=== PATIENT | female | born 1940 | race Caucasian/White ===

== ENCOUNTER 2022-10-20 09:10 | Inpatient (IN) | payer MEDICARE, SELFPAY ==
[2022-10-20] VITALS (30 sets, daily range): BP systolic 144–170; BP diastolic 65–99; PULSE 66–101; RESP 13–21; TEMP 36.4–36.8; O2SAT 88–100; BMI 26.6; BMI 27.1
--- NOTE | 2022-10-20 09:23 | ECG_ITS ---
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
--- NOTE | 2022-10-20 09:23 | XR_ITS ---
The [address] [address] Patient Name: FANTASMA LEWIS MRN: [id number] date: 1940 Sex: F Assigned Patient Location: ER Current Patient Location: ED.MAIN Accession/Order Number: [id number] Exam Date: 10/20/2022 09:46 Report Date: 10/20/2022 09:59 At the request of: CRUZ CRASON Procedure: XR chest 1V EXAM: XR chest 1V HISTORY: . dizzy, recent Covid . COMPARISON: None. TECHNIQUE: Single view of the chest FINDINGS: Heart and vascularity are unremarkable. Lungs are free of focal infiltrates. EKG leads overlie the chest. XR/XR chest 1V IMPRESSION: No acute heart or lung disease identified. Electronically authenticated by: AUNDREA LEDESMA Date: 10/20/2022 09:59
--- NOTE | 2022-10-20 09:25 | ED_ITS ---
HPI - General Adult General Chief complaint: Weakness Stated complaint: DIZZINESS Time Seen by Provider: 10/20/22 09:19 Source: patient Mode of arrival: ambulance Limitations: no limitations History of Present Illness HPI narrative: 10-year-old female presents for dizziness and nausea. She was diagnosed with Covid two weeks ago and was prescribed an antiviral that she doesn't know the name of. She didn't take it correctly. She took it correctly 1st day but then the 2nd and 3rd days she seems to take in two days doses on each of those days. She states that she then stopped taking it. It wasn't intentional. She's been eating but hasn't been drinking much liquid. She's been feeling this way for a few weeks and it seems to be getting worse. No fever or pain. Related Data Home Medications Medication Instructions Recorded Confirmed anastrozole 1 mg tablet 1 mg PO Q24H 10/20/22 10/20/22 duloxetine 60 mg capsule,delayed 60 mg PO Q24H 10/20/22 10/20/22 release levothyroxine 88 mcg tablet 88 mcg PO Q24H 10/20/22 10/20/22 omeprazole 40 mg capsule,delayed 40 mg PO Q24H 10/20/22 10/20/22 release verapamil 240 mg 24 hr 240 mg PO Q24H 10/20/22 10/20/22 capsule,extended release Previous Rx's Medication Instructions Recorded meclizine 25 mg chewable tablet 25 mg PO QID PRN dizziness #20 tabs 10/20/22 (Antivert) ondansetron 4 mg disintegrating 4 mg PO Q6H PRN nausea and 10/20/22 tablet vomiting #20 tabs Allergies Allergy/AdvReac Type Severity Reaction Status Date / Time No Known Drug Allergies Allergy Verified 10/20/22 09:12 Review of Systems ROS Narrative A ten point review of systems is negative except as noted above. Exam Narrative Exam Narrative: Nurses note and vital signs reviewed and patient is not hypoxic. General: The patient appears well and in no apparent distress. Patient is resting comfortably on cart. Skin: Warm, dry, no pallor noted. There is no rash noted. Head: Normocephalic, atraumatic Eye: Normal conjunctiva, no drainage, EOMI. PERRL Ears, Nose, Mouth, and Throat: oral mucosa is not well-hydrated Cardiovascular: Regular Rate and Rhythm Respiratory: Patient is in no distress, no accessory muscle use, lungs are clear to auscultation, no wheezing, rales or rhonchi Back: non-tender GI: no tenderness to palpation, no masses appreciated. No rebound, guarding, or rigidity noted. Musculoskeletal: The patient has no evidence of calf tenderness, no pitting edema, symmetrical pulses noted bilaterally Neurological: A&O, normal speech Psychiatric: Cooperative Constitutional Vital Signs, click to edit/add: Last Vital Signs Temp 97.5 F L 10/20/22 09:12 Pulse 75 10/20/22 11:10 Resp 19 10/20/22 11:10 BP 154/71 H 10/20/22 11:15 Pulse Ox 98 10/20/22 11:10 O2 Del Method Nasal Cannula 10/20/22 09:32 O2 Flow Rate 2 10/20/22 09:32 Course Vital Signs Vital signs: Vital Signs Temperature 97.5 F L 10/20/22 09:12 Pulse Rate 71 10/20/22 09:12 Respiratory Rate 16 10/20/22 09:12 Blood Pressure 170/99 H 10/20/22 09:12 Pulse Oximetry 96 10/20/22 09:12 Oxygen Delivery Method Room Air 10/20/22 09:12 Temperature 97.5 F L 10/20/22 09:12 Pulse Rate 75 10/20/22 11:10 Respiratory Rate 19 10/20/22 11:10 Blood Pressure 154/71 H 10/20/22 11:15 Pulse Oximetry 98 10/20/22 11:10 Oxygen Delivery Method Nasal Cannula 10/20/22 09:32 Oxygen Delivery Flow Rate 2 10/20/22 09:32 Medical Decision Making MDM Narrative Medical decision making narrative: The patient's workup including blood work, urinalysis, EKG, and chest x-ray is negative. She was given IV fluids as well as Zofran and Antivert and she is able to be discharged home. Treatment diagnosis and follow-up were discussed with the patient and her family. Differential Diagnosis Differential Diagnosis: dehydration, anemia, electrolyte disturbance, d ysrhythmia Lab Data Lab results reviewed: Yes I reviewed the patient's lab results Labs: Lab Results 10/20/22 10/20/22 Range/Units 09:40 10:35 WBC 6.0 (4.0-11.0) 10^3/uL RBC 4.06 L (4.20-5.40) 10^6/uL Hgb 12.8 (12.0-16.0) g/dL Hct 39.3 (36.0-48.0) % MCV 96.8 (81.0-99.0) fL MCH 31.5 (26.7-34.0) pg MCHC 32.6 (29.9-35.2) g/dL RDW 12.6 (11.0-15.0) % Plt Count 277 (150-450) 10^3/uL MPV 9.6 (9.5-13.5) fL Neut % (Auto) 69.7 (43.0-75.0) % Lymph % (Auto) 17.1 L (20.5-60.0) % [place] % (Auto) 8.2 (1.7-12.0) % Eos % (Auto) 4.4 (0.9-7.0) % Baso % (Auto) 0.3 (0.2-2.0) % Neut # (Auto) 4.2 (1.4-6.5) 10^3/uL Lymph # (Auto) 1.0 L (1.2-3.8) 10^3/uL [place] # (Auto) 0.5 (0.3-0.8) 10^3/uL Eos # (Auto) 0.3 (0.0-0.7) 10^3/uL Baso # (Auto) 0.0 (0.0-0.1) 10^3/uL Abs Immat Gran (auto) 0.02 (0.00-0.03) 10^3/uL Imm/Tot Granulo (auto) 0.3 (0.0-0.5) % Sodium 143 (136-145) mmol/L Potassium 3.6 (3.5-5.1) mmol/L Chloride 105 (98-107) mmol/L Carbon Dioxide 35.7 H (21.0-32.0) mmol/L Anion Gap 5.9 BUN 17.0 (7.0-18.0) mg/dL Creatinine 0.73 (0.55-1.02) mg/dL Est GFR ( Amer) >60 (>=60) Est GFR (Non-Af Amer) >60 (>=60) BUN/Creatinine Ratio 23.3 Glucose 125 H (74-106) mg/dL Calcium 8.7 (8.5-10.1) mg/dL Urine Color Lt. yellow (YELLOW) Urine Clarity Clear (CLEAR) Urine pH 7.5 (5.0-9.0) Ur Specific [place] 1.015 (1.005-1.025) Urine Protein Negative (NEG/TRACE) mg/dL Urine Glucose (UA) Negative (NEGATIVE) mg/dL Urine Ketones Negative (NEGATIVE) mg/dL Urine Occult Blood Negative (NEGATIVE) Urine Nitrite Negative (NEGATIVE) Urine Bilirubin Negative (NEGATIVE) Urine Urobilinogen 0.2 (0.2-1.0) EU/dL Ur Leukocyte Esterase Small A (NEGATIVE) Urine RBC None seen (0-2) #/HPF Urine WBC 2-5 A (NONE SEEN) #/HPF Ur Squamous Epith Cells Few A (NONE/RARE) #/LPF Urine Bacteria Trace A (NONE SEEN) #/HPF Urine Mucus None seen (NONE SEEN) Imaging Data Chest x-ray: Radiologist's impression: Procedure: XR chest 1V EXAM: XR chest 1V HISTORY: . dizzy, recent Covid . COMPARISON: None. TECHNIQUE: Single view of the chest FINDINGS: Heart and vascularity are unremarkable. Lungs are free of focal infiltrates. EKG leads overlie the chest. IMPRESSION: No acute heart or lung disease identified. ECG Data Attestation: I personally reviewed and interpreted this ECG as follows: (EKG on my interpretation shows sinus rhythm without acute change) Discharge Plan Discharge Chief Complaint: Weakness Clinical Impression: Dizziness Patient Disposition: Home, Self-Care Time of Disposition Decision: 11:45 Condition: Good Mode of Transportation: Private Vehicle Prescriptions / Home Meds: New ondansetron 4 mg tablet,disintegrating 4 mg PO Q6H PRN (Reason: nausea and vomiting) Qty: 20 0RF meclizine [Antivert] 25 mg tablet,chewable 25 mg PO QID PRN (Reason: dizziness) Qty: 20 0RF No Action duloxetine 60 mg capsule,delayed release(DR/EC) 60 mg PO Q24H anastrozole 1 mg tablet 1 mg PO Q24H levothyroxine 88 mcg tablet 88 mcg PO Q24H omeprazole 40 mg capsule,delayed release(DR/EC) 40 mg PO Q24H verapamil 240 mg capsule,ext rel. pellets 24 hr 240 mg PO Q24H Instructions: Dizziness (ED) Stand Alone Forms: Portal Instructions Referrals: CINTIA LUBIN [Primary Care Provider] - 1 week
[2022-10-20] MEDS: 0.9 % SODIUM CHLORIDE 1,000 ML 1000 ML IV (09:38)
[2022-10-20 09:47] LABS: Basophils Percent Auto 0.3 % (0.2-2.0); Eosinophils Absolute Auto 0.3 10^3/uL (0.0-0.7); Eosinophils Percent Auto 4.4 % (0.9-7.0); Hematocrit 39.3 % (36.0-48.0); Hemoglobin 12.8 g/dL (12.0-16.0); Immature Granulocytes Abs Auto 0.02 10^3/uL (0.00-0.03); Immature Granulocytes Pct Auto 0.3 % (0.0-0.5); Lymphocytes Percent Auto 17.1 % (20.5-60.0); Mean Corpuscular HGB Conc 32.6 g/dL (29.9-35.2); Mean Corpuscular Hemoglobin 31.5 pg (26.7-34.0); Mean Corpuscular Volume 96.8 fL (81.0-99.0); Mean Platelet Volume 9.6 fL (9.5-13.5); Monocytes Absolute Auto 0.5 10^3/uL (0.3-0.8); Monocytes Percent Auto 8.2 % (1.7-12.0); Neutrophils Absolute Auto 4.2 10^3/uL (1.4-6.5); Neutrophils Percent Auto 69.7 % (43.0-75.0); Platelet Count 277 10^3/uL (150-450); Red Blood Count 4.06 10^6/uL (4.20-5.40); Red Cell Distribution Width 12.6 % (11.0-15.0)
[2022-10-20 09:52] LABS: Anion Gap 5.9; BUN Creatinine Ratio 23.3; Calcium 8.7 mg/dL (8.5-10.1); Carbon Dioxide 35.7 mmol/L (21.0-32.0); Chloride 105 mmol/L (98-107); Estimated GFR (African America >60 (>=60); Estimated GFR (Non-African Ame >60 (>=60); Glucose 125 mg/dL (74-106); Potassium 3.6 mmol/L (3.5-5.1); Sodium 143 mmol/L (136-145)
[2022-10-20 10:46] LABS: Bilirubin Urine NEGATIVE (NEGATIVE); Blood Urine NEGATIVE (NEGATIVE); Clarity Urine CLEAR (CLEAR); Color Urine LT. YELLOW (YELLOW); Glucose Urine UA NEGATIVE (NEGATIVE); Ketones Urine NEGATIVE (NEGATIVE); Leukocyte Esterase Urine SMALL (NEGATIVE); Nitrite Urine NEGATIVE (NEGATIVE); Protein Urine NEGATIVE (NEG/TRACE); Specific Gravity Urine 1.015 (1.005-1.025); Urobilinogen Urine 0.2 EU/dL (0.2-1.0); pH Urine 7.5 (5.0-9.0)
[2022-10-20 11:04] LABS: RBC Urine NONE SEEN #/HPF (0-2)
[2022-10-20 11:05] LABS: Bacteria Urine TRACE #/HPF (NONE SEEN); Mucus Urine NONE SEEN (NONE SEEN); Squamous Epithelial Cell Urine FEW #/LPF (NONE/RARE)
[2022-10-20] MEDS: MECLIZINE HCL 12.5 MG TABLET 25 MG PO ×3 (11:51→23:10)
[2022-10-20] MEDS: ONDANSETRON PF 4 MG/2 ML VIAL IV ×2 (11:51→23:06)
--- NOTE | 2022-10-20 12:53 | CT_ITS ---
The [address] [address] Patient Name: FANTASMA LEWIS MRN: [id number] date: 1940 Sex: F Assigned Patient Location: ER Current Patient Location: ER Accession/Order Number: [id number] Exam Date: 10/20/2022 12:47 Report Date: 10/20/2022 13:16 At the request of: CRUZ CARSON Procedure: CT head/brain wo con CT head/brain wo con: 10/20/2022 12:47 PM EDT CLINICAL HISTORY: 82 years old Female with dizziness. TECHNIQUE: CT head/brain wo con was performed without intravenous contrast administration. Axial CT images are obtained as well as sagittal and coronal reformations. Dose reduction techniques were achieved by using automated exposure control and/or adjustment of mA and/or kV according to patient size and/or use of iterative reconstruction technique. COMPARISON: None FINDINGS: The ventricles, gyri, sulcal patterns, and basal cisterns have a normal size and configuration for the patient's age. No intracranial hemorrhage or extra-axial fluid collection is identified. There is no evidence of focal mass or midline shift. The garza-white matter differentiation is preserved. The basal ganglia and thalami appear normal. The midbrain and cerebellum appear normal. The paranasal sinuses are normally aerated. Mastoid air cells are normally aerated. No appreciable scalp soft tissue swelling or depressed skull fractures are seen. CT/CT head/brain wo con IMPRESSION: No intracranial hemorrhage, mass effect or midline shift. Electronically authenticated by: YUN ROBERTS Date: 10/20/2022 13:16
--- NOTE | 2022-10-20 16:10 | P.HP_ITS ---
H&P: HPI History of Present Illness Chief complaint: DIZZINESS Narrative: Patient presented to the emergency room with vertigo. Given multiple medications in ER without improvement. She also describes more of a near syncopal type symptoms as well as she gets dizzy with changing positions. Especially going from sitting to standing. Found to have mild dehydration and persistent vertigo unable to treat. In ER. So patient is admitted for IV medication. Review of Systems ROS Status of ROS 10 or more systems reviewed and unremarkable except as noted in history and below [facility] PFS Medical History (Updated 10/20/22 @ 14:21 by Brenda Mena) Surgical History (Updated 10/20/22 @ 14:21 by Brenda Mena) Family History (Updated 10/20/22 @ 14:23 by Brenda Mena) Mother Family history of CHF (congestive heart failure) Family history of diabetes mellitus Family history of hypertension Family history of myocardial infarction Grandfather Family history of COPD (chronic obstructive pulmonary disease) Family history of stroke Grandmother Family history of cancer Brother Family history of diabetes mellitus Father Family history of hypertension Social History (Updated 10/20/22 @ 14:27 by Brenda Mena) Within the past year, how often did you have a drink containing alcohol: never Within the past year, how many standard drinks containing alcohol did you have on a typical day: 1 or 2 Within the past year, how often did you have six or more drinks on one occasion: never Total score: 0 Score interpretation: A score less than 3 is consistent with normal alcohol consumption. Smoking status: Former smoker Non-prescribed substance use: denies use Previous occupational history: Retired Highest level of school completed/degree received: high school graduate Are you now , , , , never or living with a partner: In a typical week, how many times do you talk on the telephone with family, friends, or neighbors: 3 or more times per week How often do you get together with friends or relatives: 3 or more times per week How often do you attend advent or anglican services: 4 or more times per year Do you belong to any clubs or organizations such as advent groups unions, fraternal or athletic groups, or school groups: no Total score: 2 Score interpretation: A score of greater than or equal to 2 indicates the lowest level of social isolation. Little interest or pleasure in doing things: not at all Feeling down, depressed, or hopeless: not at all Feel stressed/tense/nervous/anxious/difficulty sleeping: not at all Gender Identity: female Meds Home Medications and Allergies Home Medications Medication Instructions Recorded Confirmed Type anastrozole 1 mg tablet 1 mg PO DAILY 10/20/22 10/20/22 History denosumab 60 mg/mL subcutaneous 60 mg subcut .twice a year 10/20/22 10/20/22 History syringe (Prolia) duloxetine 60 mg capsule,delayed 60 mg PO DAILY 10/20/22 10/20/22 History release levothyroxine 88 mcg tablet 88 mcg PO QAM 10/20/22 10/20/22 History meclizine 25 mg chewable tablet 25 mg PO QID PRN dizziness #20 tabs 10/20/22 Rx (Antivert) omeprazole 40 mg capsule,delayed 40 mg PO DAILY 10/20/22 10/20/22 History release ondansetron 4 mg disintegrating 4 mg PO Q6H PRN nausea and 10/20/22 Rx tablet vomiting #20 tabs verapamil 240 mg 24 hr 240 mg PO DAILY 10/20/22 10/20/22 History capsule,extended release Allergies Allergy/AdvReac Type Severity Reaction Status Date / Time No Known Drug Allergies Allergy Verified 10/20/22 09:12 Exam Constitutional Vital Signs, click to edit/add: Last Vital Signs Temp 98.2 F 10/20/22 14:33 Pulse 86 10/20/22 15:09 Resp 18 10/20/22 14:33 BP 148/79 H 10/20/22 15:09 Pulse Ox 93 L 10/20/22 14:33 O2 Del Method Room Air 10/20/22 14:33 O2 Flow Rate 2 10/20/22 14:15 Documenting provider has reviewed patient's vital signs: yes Common normals: no apparent distress HENMT Common normals: normocephalic (Positive nystagmus on bilateral conjugate gaze reproducing her symptoms) Chest Common normals: inspection of chest normal Cardio Common normals: regular rate, regular rhythm and no gallops Neuro Common normals: oriented x3 and CN's II-XII intact bilaterally Results Labs Labs: Short CBC 10/20/22 Range/Units 09:40 WBC 6.0 (4.0-11.0) 10^3/uL Hgb 12.8 (12.0-16.0) g/dL Hct 39.3 (36.0-48.0) % Plt Count 277 (150-450) 10^3/uL BMP 10/20/22 09:40 Sodium 143 Potassium 3.6 Chloride 105 Carbon Dioxide 35.7 H BUN 17.0 Creatinine 0.73 Glucose 125 H Calcium 8.7 Urine 10/20/22 Range/Units 10:35 Urine Color Lt. yellow (YELLOW) Urine Clarity Clear (CLEAR) Urine pH 7.5 (5.0-9.0) Ur Specific [place] 1.015 (1.005-1.025) Urine Protein Negative (NEG/TRACE) mg/dL Urine Glucose (UA) Negative (NEGATIVE) mg/dL Assessment and Plan Assessment and Plan (1) Dizziness: (2) Hypertension: (3) Hypothyroidism: Plan Persistent vertigo with symptoms reproduced on 98 with nystagmus on bilateral conjugate gaze-meclizine [id number]. 1 dose of steroids. May try physical therapy. Mild dehydration with orthostatic symptoms-continue with fluid management for now. Reevaluate in a.m. Hypertension by history-continue with current medications
[2022-10-20] MEDS: LACTATED RINGER'S SOLUTION 1,000 ML 100 ML IV (17:01)
[2022-10-20] MEDS: DEXAMETHASONE SODIUM PHOSPHATE 4 MG/ML VIAL IV (17:02)
[2022-10-20] MEDS: ACETAMINOPHEN 500 MG TABLET 1000 MG PO (23:10)
[2022-10-21] VITALS (23 sets, daily range): BP systolic 90–161; BP diastolic 45–89; PULSE 71–102; RESP 14–18; TEMP 36.1–36.8; O2SAT 90–97
[2022-10-21] MEDS: LACTATED RINGER'S SOLUTION 1,000 ML 100 ML IV (02:58)
[2022-10-21] MEDS: MECLIZINE HCL 12.5 MG TABLET 25 MG PO ×3 (05:58→20:02)
[2022-10-21] MEDS: OMEPRAZOLE 40 MG CAPSULE.DR PO (06:09)
[2022-10-21] MEDS: LEVOTHYROXINE SODIUM 88 MCG TABLET PO (06:09)
[2022-10-21] MEDS: VERAPAMIL HCL ER 240 MG TABLET PO (09:04)
[2022-10-21] MEDS: DULOXETINE HCL 60 MG CAPSULE.DR PO (09:04)
--- NOTE | 2022-10-21 09:12 | P.PN_ITS ---
Progress Note: Subjective Subjective Interval history: Patient still with symptoms of vertigo, definite spinning sensation, is much better when she stands up she, she no longer has that lightheadedness. But head movement still persisting with the vertigo. Exam Constitutional Vital Signs, click to edit/add: Last Vital Signs Temp 98.1 F 10/21/22 05:54 Pulse 96 H 10/21/22 08:00 Resp 15 10/21/22 05:54 BP 161/89 H 10/21/22 06:04 Pulse Ox 93 L 10/21/22 05:54 O2 Del Method Room Air 10/21/22 05:54 O2 Flow Rate 1 10/21/22 05:12 Documenting provider has reviewed patient's vital signs: yes Common normals: no apparent distress HENSC Common normals: normocephalic (Positive nystagmus on bilateral conjugate gaze reproducing her symptoms) Chest Common normals: inspection of chest normal Cardio Common normals: regular rate, regular rhythm and no gallops Neuro Common normals: oriented x3 and CN's II-XII intact bilaterally Progress Note: Objective Labs Labs: Short CBC 10/20/22 Range/Units 09:40 WBC 6.0 (4.0-11.0) 10^3/uL Hgb 12.8 (12.0-16.0) g/dL Hct 39.3 (36.0-48.0) % Plt Count 277 (150-450) 10^3/uL BMP 10/20/22 09:40 Sodium 143 Potassium 3.6 Chloride 105 Carbon Dioxide 35.7 H BUN 17.0 Creatinine 0.73 Glucose 125 H Calcium 8.7 Urine 10/20/22 Range/Units 10:35 Urine Color Lt. yellow (YELLOW) Urine Clarity Clear (CLEAR) Urine pH 7.5 (5.0-9.0) Ur Specific [place] 1.015 (1.005-1.025) Urine Protein Negative (NEG/TRACE) mg/dL Urine Glucose (UA) Negative (NEGATIVE) mg/dL Progress Note: A&P Assessment and Plan (1) Dizziness: (2) Hypertension: (3) Hypothyroidism: Plan Sinus tachycardia and uncontrolled hypertension resulting from persistent vertigo with symptoms reproduced with nystagmus on bilateral conjugate gaze- meclizine [id number]. We will repeat the dose of steroids, start antibiotics, have physical therapy continue to work with her. No other neurological changes, could consider work-up for posterior circulation if not improving Mild dehydration with orthostatic symptoms-continue with fluid management for now. Reevaluate in a.m.-this seems much improved Hypertension by history-continue with current medications ?
--- NOTE | 2022-10-21 09:27 | CM.NOTE ---
Rounds made with Dr. Kraus, possible discharge this afternoon depending on how pt does with ambulation.
[2022-10-21] MEDS: DEXAMETHASONE SODIUM PHOSPHATE 4 MG/ML VIAL IV (10:06)
[2022-10-21] MEDS: CEFTRIAXONE 1,000 MG in 0.9 % SODIUM CHLORIDE 50 ML 100 MG IV (10:06)
--- NOTE | 2022-10-21 11:58 | CM.NOTE ---
Medicare Outpatient Observation Notice discussed with pt, pt verbalizes understanding and signs paper. Original given to pt and copy placed on pt's chart.
--- NOTE | 2022-10-21 13:45 | SWNOTE1 ---
DENZEL met with pt to discuss dc needs. Pt does live at home by herself. She has several family members within the area that help care for her. Her dog is currently staying with her daughter. Pt does have a cane,walker, and rollator at home. She stated her home is small so she usually furniture walks, but when she is outside she uses a cane. She takes her rollator for longer trips. Pt does voice she is dizzy when she moves her head around, but is feeling better than when she was admitted. DENZEL and pt spoke about home health coming in for a short time. Pt is agreeable. SW reviewed medicare.gov list, and also let her know it will depend on who her insurance accepts. She would like DENZEL to try [facility] first.
--- NOTE | 2022-10-21 15:49 | SWNOTE1 ---
DENZEL called over to [facility] to see if they can accept, they stated they have not received referral. SW did have confirmation that the fax went through. SW sent referral again. Pt is not discharging today.
--- NOTE | 2022-10-21 16:30 | SWNOTE1 ---
[facility] is able to accept pt, SW to let pt know tomorrow.
[2022-10-22] VITALS (17 sets, daily range): BP systolic 106–175; BP diastolic 58–82; PULSE 70–96; RESP 16–20; TEMP 36.5–36.9; O2SAT 89–95
[2022-10-22] MEDS: MECLIZINE HCL 12.5 MG TABLET 25 MG PO ×4 (02:17→21:18)
[2022-10-22 05:46] LABS: Basophils Percent Auto 0.1 % (0.2-2.0); Eosinophils Percent Auto 0.1 % (0.9-7.0); Hematocrit 38.1 % (36.0-48.0); Hemoglobin 11.8 g/dL (12.0-16.0); Immature Granulocytes Abs Auto 0.02 10^3/uL (0.00-0.03); Immature Granulocytes Pct Auto 0.2 % (0.0-0.5); Lymphocytes Absolute Auto 1.2 10^3/uL (1.2-3.8); Lymphocytes Percent Auto 13.9 % (20.5-60.0); Mean Corpuscular Hemoglobin 31.4 pg (26.7-34.0); Mean Corpuscular Volume 101.3 fL (81.0-99.0); Mean Platelet Volume 10.8 fL (9.5-13.5); Monocytes Absolute Auto 0.6 10^3/uL (0.3-0.8); Monocytes Percent Auto 6.7 % (1.7-12.0); Neutrophils Absolute Auto 6.9 10^3/uL (1.4-6.5); Platelet Count 305 10^3/uL (150-450); Red Blood Count 3.76 10^6/uL (4.20-5.40); Red Cell Distribution Width 13.1 % (11.0-15.0); White Blood Count 8.8 10^3/uL (4.0-11.0)
[2022-10-22 05:55] LABS: Anion Gap 9.4; BUN Creatinine Ratio 20.3; Calcium 8.9 mg/dL (8.5-10.1); Carbon Dioxide 28.3 mmol/L (21.0-32.0); Chloride 106 mmol/L (98-107); Estimated GFR (African America >60 (>=60); Estimated GFR (Non-African Ame >60 (>=60); Glucose 108 mg/dL (74-106); Potassium 3.7 mmol/L (3.5-5.1); Sodium 140 mmol/L (136-145)
[2022-10-22] MEDS: OMEPRAZOLE 40 MG CAPSULE.DR PO (06:08)
[2022-10-22] MEDS: LEVOTHYROXINE SODIUM 88 MCG TABLET PO (06:09)
[2022-10-22] MEDS: HYDRALAZINE HCL 20 MG/ML VIAL 10 MG IVP (06:11)
[2022-10-22 06:28] LABS: C Reactive Protein <0.2 mg/dL (<=1.0)
[2022-10-22] MEDS: VERAPAMIL HCL ER 240 MG TABLET PO (08:20)
[2022-10-22] MEDS: DULOXETINE HCL 60 MG CAPSULE.DR PO (08:21)
--- NOTE | 2022-10-22 08:32 | CM.NOTE ---
Rounds made with Dr. Kraus, pt continues to have dizziness. Dr. Kraus talked with pt about more testing and also spoke with PT about vertigo.
--- NOTE | 2022-10-22 08:37 | PT.DAILY ---
Physical Therapy Daily Note PT Daily Note/Assess Start: 10/21/22 15:58 Freq: Status: Active Protocol: Document 10/22/22 08:00 GAYLA (Rec: 10/22/22 08:37 [email or web address] [id number]) Visit Not Completed Visit Not Completed Visit Not Completed Due to: Other Other Reason Visit Not Completed Per patient and verbal conversation with Dr. Kraus, wanting Vertigo assessment/ Daniel completed on patient. Put on PT scheduled at 10 am to complete. Physical Therapy Daily Note/Assessment Time In/Time Out Time In 08:00 Time Out 08:15 GG. Functional Abilities and Goals-Complete for Swing Bed Patients Only [id number]. Self-Care [id number]. Mobility
--- NOTE | 2022-10-22 08:41 | CT_ITS ---
[address] [address] Patient Name: FANTASMA LEWIS MRN: [id number] date: 1940 Sex: F Assigned Patient Location: [place] Current Patient Location: [place] Accession/Order Number: [id number] Exam Date: 10/22/2022 11:40 Report Date: 10/22/2022 12:44 At the request of: ALEK MORA Procedure: CT angio neck CT angio head, CT angio neck, 10/22/2022 11:40 AM EDT INDICATION: Vertigo x2 days- eval posterior circulation COMPARISON: Noncontrast CT of the head 10/20/2022, 11/09/2021. TECHNIQUE: Axial images of the head and neck were obtained with administration of IV contrast. Multiplanar reformatted, MIP and 3D images were generated and reviewed as needed. Dose reduction techniques were achieved by using automated exposure control and/or adjustment of mA and/or kV according to patient size and/or use of iterative reconstruction technique. FINDINGS: CTA NECK: Aortic arch: No significant stenosis of the origins of the major arch vessels. Left carotid system: Small focus of calcified plaque in the carotid bulb. No evidence of significant (50% or greater) stenosis or occlusion. Right carotid system: Small amount of calcified plaque within the carotid bulb and proximal internal carotid artery. No evidence of significant (50% or greater) stenosis or occlusion. Vertebral arteries: Codominant. No evidence of significant (50% or greater) stenosis or occlusion. The posterior inferior cerebellar artery appears patent bilaterally. Basilar artery: Patent without rate limiting stenosis. The proximal right anterior inferior cerebellar artery is patent. Diminutive but patent left anterior inferior cerebellar artery. The proximal superior cerebellar arteries are patent bilaterally. No aneurysm, dissection or occlusion. No focal consolidation at the lung apices. No acute fracture or dislocation. CT/CT angio neck IMPRESSION: 1. Patent neck CTA. No large vessel occlusion, aneurysm or dissection. CTA BRAIN: The distal cervical, petrous, cavernous and supraclinoid segments of the internal carotid artery are patent bilaterally. The cerebral arteries are patent. No aneurysm, dissection or occlusion. 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 No enhancing intracranial mass or active extravasation of contrast. Visualized portions of the dural sinuses cortical veins demonstrate no occlusion. Chronic mucosal thickening within the left sphenoid sinus and maxillary sinus. No acute skull fracture. IMPRESSION: 1. Patent head CTA. No large vessel occlusion, aneurysm or dissection. Electronically authenticated by: LEXIE DIXON Date: 10/22/2022 12:44
--- NOTE | 2022-10-22 08:41 | CT_ITS ---
[address] [address] Patient Name: FANTASMA LEWIS MRN: [id number] date: 1940 Sex: F Assigned Patient Location: MS Current Patient Location: MS Accession/Order Number: [id number] Exam Date: 10/22/2022 11:40 Report Date: 10/22/2022 12:44 At the request of: ALEK MORA Procedure: CT angio head CT angio head, CT angio neck, 10/22/2022 11:40 AM EDT INDICATION: Vertigo x2 days- eval posterior circulation COMPARISON: Noncontrast CT of the head 10/20/2022, 11/09/2021. TECHNIQUE: Axial images of the head and neck were obtained with administration of IV contrast. Multiplanar reformatted, MIP and 3D images were generated and reviewed as needed. Dose reduction techniques were achieved by using automated exposure control and/or adjustment of mA and/or kV according to patient size and/or use of iterative reconstruction technique. FINDINGS: CTA NECK: Aortic arch: No significant stenosis of the origins of the major arch vessels. Left carotid system: Small focus of calcified plaque in the carotid bulb. No evidence of significant (50% or greater) stenosis or occlusion. Right carotid system: Small amount of calcified plaque within the carotid bulb and proximal internal carotid artery. No evidence of significant (50% or greater) stenosis or occlusion. Vertebral arteries: Codominant. No evidence of significant (50% or greater) stenosis or occlusion. The posterior inferior cerebellar artery appears patent bilaterally. Basilar artery: Patent without rate limiting stenosis. The proximal right anterior inferior cerebellar artery is patent. Diminutive but patent left anterior inferior cerebellar artery. The proximal superior cerebellar arteries are patent bilaterally. No aneurysm, dissection or occlusion. No focal consolidation at the lung apices. No acute fracture or dislocation. CT/CT angio head IMPRESSION: 1. Patent neck CTA. No large vessel occlusion, aneurysm or dissection. CTA BRAIN: The distal cervical, petrous, cavernous and supraclinoid segments of the internal carotid artery are patent bilaterally. The cerebral arteries are patent. No aneurysm, dissection or occlusion. 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 No enhancing intracranial mass or active extravasation of contrast. Visualized portions of the dural sinuses cortical veins demonstrate no occlusion. Chronic mucosal thickening within the left sphenoid sinus and maxillary sinus. No acute skull fracture. IMPRESSION: 1. Patent head CTA. No large vessel occlusion, aneurysm or dissection. Electronically authenticated by: LEXIE DIXON Date: 10/22/2022 12:44
--- NOTE | 2022-10-22 08:54 | P.PN_ITS ---
Progress Note: Subjective Subjective Interval history: Cannot difficulty improved. She does feel generally better if she does not have the lightheadedness with standing but still has a persistent vertigo. Any head movement seems to stimulate it. Exam Constitutional Vital Signs, click to edit/add: Last Vital Signs Temp 98.3 F 10/22/22 06:00 Pulse 96 H 10/22/22 08:05 Resp 18 10/22/22 06:00 BP 175/77 H 10/22/22 06:11 Pulse Ox 94 L 10/22/22 06:00 O2 Del Method Room Air 10/22/22 06:00 O2 Flow Rate 1 10/21/22 05:12 Documenting provider has reviewed patient's vital signs: yes Common normals: no apparent distress HENMT Common normals: normocephalic (Positive nystagmus on bilateral conjugate gaze reproducing her symptoms) Chest Common normals: inspection of chest normal Cardio Common normals: regular rate, regular rhythm and no gallops Neuro Common normals: oriented x3 (Persistent nystagmus on bilateral conjugate gaze) and CN's II-XII intact bilaterally Progress Note: Objective Labs Labs: Short CBC 10/22/22 Range/Units 04:15 WBC 8.8 (4.0-11.0) 10^3/uL Hgb 11.8 L (12.0-16.0) g/dL Hct 38.1 (36.0-48.0) % Plt Count 305 (150-450) 10^3/uL BMP 10/22/22 04:15 Sodium 140 Potassium 3.7 Chloride 106 Carbon Dioxide 28.3 BUN 13.0 Creatinine 0.64 Glucose 108 H Calcium 8.9 Progress Note: A&P Assessment and Plan (1) Dizziness: (2) Hypertension: (3) Hypothyroidism: Plan Sinus tachycardia and uncontrolled hypertension resulting from persistent vertigo with symptoms reproduced with nystagmus on bilateral conjugate gaze- meclizine [id number]. Daniel maneuvers not tried yesterday. We will definitely try that today. But with persistence of her symptoms she needs CTA to evaluate posterior circulation. We will obtain that this morning. If that is negative and Apley maneuvers seem to improve her to the point that she can ambulate safely she could be discharged home in improving condition. Medications see list. Follow-up with your PCP within the next week. With Apley maneuvers were unable to improve her overall symptoms she will be required to stay 1 additional day and will require inpatient admission secondary to the persistence of her symptoms and her not being safe for being discharged home with high risk of fall and fracture Mild dehydration with orthostatic symptoms-continue with fluid management for now. Hypertension by history-continue with current medications-somewhat elevated still today so we will add lisinopril ?
[2022-10-22] MEDS: LISINOPRIL 10 MG TABLET PO (10:18)
--- NOTE | 2022-10-22 14:54 | SWNOTE1 ---
DENZEL spoke with pt and pt's son in regards to discharge plans. Pt is still feeling dizzy and pt's family has voiced they do not think she can return home. Concerns for her being by herself. SW spoke with them about rehab and how she is a precert and it would be determined by her insurance and insurance may approve or deny. They voiced understanding and would like to try to get her into rehab. SW to review list from medicare.gov with pt and son.
--- NOTE | 2022-10-22 15:21 | SWNOTE1 ---
Pt and son would like the [facility]. SW sent referral to [place]. SW also asked doctor to put OT order in as well.
--- NOTE | 2022-10-22 16:02 | PM.NSCN ---
History of Present Illness History of Present Illness Requesting physician: Claudio Kraus Reason for consult: dizziness Chief complaint: DIZZINESS Narrative: Ren is an 82 year old right handed woman whom we were consulted for dizzziness. Patient last felt her normal self around last . She started to feel tooth pain, headche, cheek pain, night sweats. The next day she was diagnosed with COVID. She also had a temperature. She had mostly recovered but continued to feel nauseated. About 2 weeks later, about 2 days later she woke up in the monring, felt fine, laid back down, then got up again 2 hours later, she felt extremely dizzy, nauseated, falling into things. She saw things spinning around in her environment, she did not want to open her eyes. Tehre was no focal weakness or dysarthria. She continues to have symptoms, though now not as bed. [facility] Medical History (Updated 10/21/22 @ 07:04 by Arelis Jade RN) Surgical History (Updated 10/21/22 @ 07:04 by Arelis Jade RN) Family History (Updated 10/20/22 @ 14:23 by Brenda Mena) Mother Family history of CHF (congestive heart failure) Family history of diabetes mellitus Family history of hypertension Family history of myocardial infarction Grandfather Family history of COPD (chronic obstructive pulmonary disease) Family history of stroke Grandmother Family history of cancer Brother Family history of diabetes mellitus Father Family history of hypertension Social History (Updated 10/20/22 @ 14:27 by Brenda Mena) Within the past year, how often did you have a drink containing alcohol: never Within the past year, how many standard drinks containing alcohol did you have on a typical day: 1 or 2 Within the past year, how often did you have six or more drinks on one occasion: never Total score: 0 Score interpretation: A score less than 3 is consistent with normal alcohol consumption. Smoking status: Former smoker Non-prescribed substance use: denies use Previous occupational history: Retired Highest level of school completed/degree received: high school graduate Are you now , , , , never or living with a partner: In a typical week, how many times do you talk on the telephone with family, friends, or neighbors: 3 or more times per week How often do you get together with friends or relatives: 3 or more times per week How often do you attend anglican or pentecostal services: 4 or more times per year Do you belong to any clubs or organizations such as anglican groups unions, fraternal or athletic groups, or school groups: no Total score: 2 Score interpretation: A score of greater than or equal to 2 indicates the lowest level of social isolation. Little interest or pleasure in doing things: not at all Feeling down, depressed, or hopeless: not at all Feel stressed/tense/nervous/anxious/difficulty sleeping: not at all Gender Identity: female Meds Home Medications and Allergies Home Medications Medication Instructions Recorded Confirmed Type anastrozole 1 mg tablet 1 mg PO DAILY 10/20/22 10/20/22 History denosumab 60 mg/mL subcutaneous 60 mg subcut .twice a year 10/20/22 10/20/22 History syringe (Prolia) duloxetine 60 mg capsule,delayed 60 mg PO DAILY 10/20/22 10/20/22 History release levothyroxine 88 mcg tablet 88 mcg PO QAM 10/20/22 10/20/22 History meclizine 25 mg chewable tablet 25 mg PO QID PRN dizziness #20 tabs 10/20/22 Rx (Antivert) omeprazole 40 mg capsule,delayed 40 mg PO DAILY 10/20/22 10/20/22 History release ondansetron 4 mg disintegrating 4 mg PO Q6H PRN nausea and 10/20/22 Rx tablet vomiting #20 tabs verapamil 240 mg 24 hr 240 mg PO DAILY 10/20/22 10/20/22 History capsule,extended release cefdinir 300 mg capsule 300 mg PO Q12H 10 days #20 caps 10/21/22 Rx meclizine 12.5 mg tablet 25 mg PO Q6H #20 tabs 10/21/22 Rx prednisone 20 mg tablet 20 mg PO BID 5 days #10 tabs 10/21/22 Rx Allergies Allergy/AdvReac Type Severity Reaction Status Date / Time No Known Drug Allergies Allergy Verified 10/20/22 09:12 Exam Constitutional: Vital Signs, click to edit/add: Last Vital Signs Temp 98 F 10/22/22 14:00 Pulse 81 10/22/22 15:50 Resp 20 10/22/22 14:00 BP 127/58 10/22/22 14:00 Pulse Ox 95 10/22/22 14:00 O2 Del Method Room Air 10/22/22 14:00 O2 Flow Rate 1 10/21/22 05:12 Results Laboratory Findings Abnormal lab findings: Abnormal Labs 10/20/22 10/20/22 10/22/22 09:40 10:35 04:15 RBC 4.06 L 3.76 L Hgb 11.8 L MCV 101.3 H Neut % (Auto) 79.0 H Lymph % (Auto) 17.1 L 13.9 L Eos % (Auto) 0.1 L Baso % (Auto) 0.1 L Neut # (Auto) 6.9 H Lymph # (Auto) 1.0 L Carbon Dioxide 35.7 H Glucose 125 H 108 H Ur Leukocyte Esterase Small A Urine WBC 2-5 A Ur Squamous Epith Cells Few A Urine Bacteria Trace A Assessment and Plan Assessment and Plan (1) Dizziness: (2) Hypertension: (3) Hypothyroidism:
--- NOTE | 2022-10-22 17:28 | CA_ITS ---
Patient: FANTASMA LEWIS Exam Date: 10/23/2022 : 1940 Gender:F Ordering : DR ALEK MORA . Admission #: [id number] Family : Order #: [id number] CLICK HERE TO VIEW EXAM ECHOCARDIOGRAM REPORT PROCEDURE: CA ECHO DOPPLER COMPLETE INDICATIONS: Dizziness, HTN COMPARISON: None. DESCRIPTION: COMPLETE ECHOCARDIOGRAM Real-time transthoracic echocardiography with 2D, M-mode, spectral and color flow Doppler performed. QUALITY: Technical quality was good. LEFT VENTRICLE: Normal chamber size. Thickened septal wall. Global left ventricular systolic function is normal. LV EF: Calculated left ventricular ejection fraction is 70% DIASTOLIC: Grade II diastolic dysfunction. ATRIAL SEPTUM: LEFT ATRIUM: Mild dilatation. RIGHT ATRIUM: Normal chamber size. RIGHT VENTRICLE: Normal chamber size. Normal right ventricular systolic function. TRICUSPID VALVE: Normal mobility and thickness. No stenosis with mild regurgitation. Mild pulmonary hypertension. RVSP 36 mmHg MITRAL VALVE: Normal mobility and thickness. No evidence of mitral valve stenosis. Mild mitral annular calcification. Trivial mitral regurgitation. AORTIC VALVE: Normal trileaflet appearance. Thickened aortic valve. Normal leaflet mobility. No evidence of aortic valve stenosis. No aortic regurgitation. AORTIC ROOT: Normal diameter and appearance. PULMONIC VALVE: Normal thickness and mobility. No stenosis. No regurgitation. PERICARDIUM: No evidence of pericardial effusion. IVC: Collapses with inspirations. Normal size. PLEURA: CONCLUSION: 1. Normal ventricular systolic function. LVEF is 70%. 2. Grade 2 diastolic dysfunction. 3. No significant valvular dysfunction. 4. Mildly elevated right-sided pressures. Adult Echocardiography Procedure Report Left Ventricle LVEDD (3.7 - 5.6 cm): 3.66 cm LVESD (2.2 - 4.0 cm): 2.28 cm LVIVS thickness (0.6 - 1.2 cm): 1.28 cm LVPW thickness (0.5 - 1.0 cm): 1.10 cm e': 0.09 m/s E - e': 12.89 LVOT Max Gradient: 4.43 mm[Hg] LVOT Area (cm2): 1.05 m/s Peak Velocity (LVOT): 1.05 m/s Mean Velocity (LVOT): 0.61 m/s LVOT Diameter 1.89 cm Left Ventricular Ejection Fraction: 69.86 % Left Atrium LA Volume Index (2D A2C): 40.33 ml/m2 Left Atrium Systolic Dimension: 3.99 cm Mitral Valve MV E to A Ratio: 0.95, 0.94 Mitral Valve A-Wave Peak Velocity: 1.20 m/s Mitral Valve E-Wave Peak Velocity: 1.13 m/s Right Ventricle RV Internal Diastolic Dimension: 2.80 cm Aorta AO Root Diam: 2.83 cm Ascending Ao Diam: 2.73 cm Aortic Valve AoV Area (Peak Jose): 1.99 cm2, 1.99 cm2 AoV Area (VTI): 1.82 cm2, 1.82 cm2 Peak Velocity(Antegrade Flow): 1.48 m/s Peak Gradient(Antegrade Flow): 8.72 mm[Hg] Mean Velocity(Antegrade Flow): 1.13 m/s Mean Gradient(Antegrade Flow): 5.54 mm[Hg] Velocity Time Integral: 35.77 cm Tricuspid Valve Peak Velocity (Regurgitant Flow): 2.54 m/s, 2.76 m/s, 2.87 m/s Pulmonic Valve Mean Gradient: 4.01 mm[Hg], 2.77 mm[Hg], 3.30 mm[Hg] Mean Velocity: 0.95 m/s, 0.78 m/s, 0.86 m/s Peak Velocity: 1.19 m/s Peak Gradient: 6.56 mm[Hg], 4.78 mm[Hg], 5.85 mm[Hg] Right Atrium Right Atrium Systolic Pressure: 28.85 ml, 28.85 ml Dictated by: Yoel Alejandra M.D. on 10/23/2022 at 17:59 Approved by: Yoel Alejandra M.D. on 10/23/2022 at 18:02
--- NOTE | 2022-10-22 17:44 | PC.NURSE ---
Xray notified of MRI brain urgent order. Tech states no one magnetic resonance imaging coordinator for MRI but they will reach out to techs to see if they will do test. Asked to notify floor of response from preventative maintenance technician
[2022-10-22] MEDS: ASPIRIN 325 MG TABLET.DR PO (18:12)
[2022-10-23] VITALS (21 sets, daily range): BP systolic 124–165; BP diastolic 71–78; PULSE 63–85; RESP 14–18; TEMP 36.6–36.8; O2SAT 90–97
[2022-10-23] MEDS: MECLIZINE HCL 12.5 MG TABLET 25 MG PO ×4 (02:57→20:52)
[2022-10-23] MEDS: OMEPRAZOLE 40 MG CAPSULE.DR PO (05:44)
[2022-10-23] MEDS: LEVOTHYROXINE SODIUM 88 MCG TABLET PO (05:44)
--- NOTE | 2022-10-23 08:00 | MR_ITS ---
The [address] [address] Patient Name: FANTASMA LEWIS MRN: [id number] date: 1940 Sex: F Assigned Patient Location: MS Current Patient Location: MS Accession/Order Number: [id number] Exam Date: 10/23/2022 08:05 Report Date: 10/23/2022 10:20 At the request of: ALEK MORA Procedure: MR head/brain wo con EXAMINATION: MR head/brain wo con, 10/23/2022 8:05 AM EDT HISTORY: post circ stroke COMPARISON: 10/22/2022 TECHNIQUE: MRI of the brain was performed without IV contrast. HISTORY: post circ stroke FINDINGS: CEREBRUM: No edema, hemorrhage, mass, acute infarction, or inappropriate atrophy. Mild scattered hyperintense foci are present, typical for a patient of this age, most commonly caused by small vessel ischemic changes. CEREBELLUM: No edema, hemorrhage, mass, acute infarction, or inappropriate atrophy. BRAINSTEM: No edema, hemorrhage, mass, acute infarction, or inappropriate atrophy. Mild scattered hyperintense foci are present, typical for a patient of this age, most commonly caused by small vessel ischemic changes. CSF SPACES: Ventricles, cisterns, and sulci are appropriate for age. No hydrocephalus, subarachnoid hemorrhage, or mass. SKULL: No mass or other significant visible lesion. SINUSES: Limited views demonstrate no significant mucosal thickening or fluid. ORBITS: Limited views are unremarkable. OTHER: Negative. MR/MR head/brain wo con IMPRESSION: No acute infarct Mild white matter disease, chronic small vessel ischemic changes are favored Electronically authenticated by: AUNDREA IVERSON Date: 10/23/2022 10:20
--- NOTE | 2022-10-23 08:32 | P.PN_ITS ---
Progress Note: Subjective Subjective Interval history: Patient with persistent vertigo, definite spinning sensation, now notices more when she is moving to her left. She does somewhat feel better today. So far her gait is somewhat better than previous day. Exam Constitutional Vital Signs, click to edit/add: Last Vital Signs Temp 98.1 F 10/23/22 05:25 Pulse 70 10/23/22 05:59 Resp 18 10/23/22 05:25 BP 154/78 H 10/23/22 05:25 Pulse Ox 94 L 10/23/22 05:25 O2 Del Method Room Air 10/23/22 05:25 O2 Flow Rate 1 10/21/22 05:12 Documenting provider has reviewed patient's vital signs: yes Common normals: no apparent distress HENMD Common normals: normocephalic (Positive nystagmus on bilateral conjugate gaze reproducing her symptoms) Chest Common normals: inspection of chest normal Cardio Common normals: regular rate, regular rhythm and no gallops Neuro Common normals: oriented x3 ( nystagmus on bilateral conjugate gaze -0-but seems to be less symtomatic) and CN's II-XII intact bilaterally Progress Note: A&P Assessment and Plan (1) Dizziness: (2) Hypertension: (3) Hypothyroidism: Plan Sinus tachycardia and uncontrolled hypertension resulting from persistent vertigo with symptoms reproduced with nystagmus on bilateral conjugate gaze- meclizine [id number]. Patient did not improve with Daniel maneuvers, not responding to medication, highly suspicious for posterior circulation CVA. Started on aspirin yesterday. MRI scan today. CTA head and neck without significant findings. Consulted telemetry neurology recommended consult to telestroke. If stroke is confirmed, patient from a safety standpoint could benefit from a short stay rehabilitation of 1 to 2 weeks. For patient safety, patient high risk for falls and live alone Mild dehydration with orthostatic symptoms-this part is resolved and is stable Hypertension by history-continue with current medications-somewhat elevated still today so we will add lisinopril ?
--- NOTE | 2022-10-23 09:16 | CM.NOTE ---
Rounds made with Dr. Kraus, discussed with pt about further testing MRI scheduled for today. Pt wishes are to go to skilled facility at discharge. DENZEL sent clinical to [facility].
--- NOTE | 2022-10-23 09:36 | SWNOTE1 ---
Precert has been submitted by [facility], waiting for approval.
[2022-10-23] MEDS: VERAPAMIL HCL ER 240 MG TABLET PO (09:49)
[2022-10-23] MEDS: ASPIRIN 325 MG TABLET.DR PO (09:49)
[2022-10-23] MEDS: LISINOPRIL 10 MG TABLET 20 MG PO (09:51)
[2022-10-23] MEDS: DULOXETINE HCL 60 MG CAPSULE.DR PO (09:52)
--- NOTE | 2022-10-23 11:10 | PT.DAILY ---
Physical Therapy Daily Note PT Daily Note/Assess Start: 10/21/22 15:58 Freq: Status: Active Protocol: Document 10/23/22 11:01 DALLIN (Rec: 10/23/22 11:10 MONTYROGER [id number]) Physical Therapy Daily Note/Assessment Time In/Time Out Time In 10:25 Time Out 10:50 Pain In Pain N/A Pain Out Pain N/A Subjective Subjective Pt supine upon arrival. Daughter present throughout session. Pt reports she has been compliant with self elpy repositioning ex and they have been somewhat helpful. Therapeutic Exercise Time Therapeutic Exercise Minutes (minutes) 8 Therapeutic Exercise Units 1 Therapeutic Exercise Treatment Therapeutic Exercise Treatment Supine strengthening ex complete after gait training to avoid any dizziness. Pt performs AP, QS, GS, heel slides, SLR (AA L), abd slides, SAQ, and add squeezes in hooklying 10x ea. Therapeutic Activity Time Therapeutic Activity Minutes (minutes) 15 Therapeutic Activity Units 1 Therapeutic Activity Treatment Bed Mobility Ability Modified Independent Therapeutic Activity Comments Pt performs supine>sit Zoila as this requires increased time. Pt reports as long as she keeps her head still and doesn 't look side to side then her dizziness is not bad. Pt sits EOB 3 min talking with therapist without LOB or dizziness. Pt sit>stand to RW SUP and amb 80' SBA/CGA for safety. Pt has decreased zulay and short strides - again to avoid dizziness. Pt returned to supine IND with increased time to perform supine ther ex. Total Physical Therapy Time Total Therapy Minutes 23 Total Physical Therapy Units 2 Summary Daily Note Summary Pt requires increased time with activity to avoid dizziness today. Pt has good static sitting balance and fair+ dynamic standing balance due to needing RW for stability.
--- NOTE | 2022-10-23 16:27 | SWNOTE1 ---
Packet left on med/surge floor in case pt is approved over weekend.
--- NOTE | 2022-10-23 16:46 | PM.CACN ---
History of Present Illness History of Present Illness Consult date: 10/23/22 Chief complaint: DIZZINESS Narrative: Patient presented to the emergency room with vertigo. Given multiple medications in ER without improvement. She also describes more of a near syncopal type symptoms as well as she gets dizzy with changing positions. Especially going from sitting to standing. Found to have mild dehydration and persistent vertigo unable to treat. In ER. So patient is admitted for IV medication. Cardiology has been consulted for evaluation of NSVT. Patient reports prior history of palpitations >20 years ago. She was found to have hyperthroidism and underwent NEAL treatment. She had an echo and stress time to evaluate her symptoms which were both negative. Review of Systems ROS Constitutional Reports: fever and chills Cardiovascular Reports: chest pain, palpitations, edema, lightheadedness and shortness of breath with exertion Neurological Reports: headache, weakness in extremities and dizziness (positive ) [facility] Medical History (Updated 10/23/22 @ 16:53 by Ronald Marte NP) Surgical History (Updated 10/21/22 @ 07:04 by Arelis Jade RN) Family History (Updated 10/20/22 @ 14:23 by Brenda Mena) Mother Family history of CHF (congestive heart failure) Family history of diabetes mellitus Family history of hypertension Family history of myocardial infarction Grandfather Family history of COPD (chronic obstructive pulmonary disease) Family history of stroke Grandmother Family history of cancer Brother Family history of diabetes mellitus Father Family history of hypertension Social History (Updated 10/20/22 @ 14:27 by Brenda Mena) Within the past year, how often did you have a drink containing alcohol: never Within the past year, how many standard drinks containing alcohol did you have on a typical day: 1 or 2 Within the past year, how often did you have six or more drinks on one occasion: never Total score: 0 Score interpretation: A score less than 3 is consistent with normal alcohol consumption. Smoking status: Former smoker Non-prescribed substance use: denies use Previous occupational history: Retired Highest level of school completed/degree received: high school graduate Are you now , , , , never or living with a partner: In a typical week, how many times do you talk on the telephone with family, friends, or neighbors: 3 or more times per week How often do you get together with friends or relatives: 3 or more times per week How often do you attend holiness or yazidi services: 4 or more times per year Do you belong to any clubs or organizations such as holiness groups unions, fraternal or athletic groups, or school groups: no Total score: 2 Score interpretation: A score of greater than or equal to 2 indicates the lowest level of social isolation. Little interest or pleasure in doing things: not at all Feeling down, depressed, or hopeless: not at all Feel stressed/tense/nervous/anxious/difficulty sleeping: not at all Gender Identity: female Meds Home Medications and Allergies Home Medications Medication Instructions Recorded Confirmed Type anastrozole 1 mg tablet 1 mg PO DAILY 10/20/22 10/20/22 History denosumab 60 mg/mL subcutaneous 60 mg subcut .twice a year 10/20/22 10/20/22 History syringe (Prolia) duloxetine 60 mg capsule,delayed 60 mg PO DAILY 10/20/22 10/20/22 History release levothyroxine 88 mcg tablet 88 mcg PO QAM 10/20/22 10/20/22 History meclizine 25 mg chewable tablet 25 mg PO QID PRN dizziness #20 tabs 10/20/22 Rx (Antivert) omeprazole 40 mg capsule,delayed 40 mg PO DAILY 10/20/22 10/20/22 History release ondansetron 4 mg disintegrating 4 mg PO Q6H PRN nausea and 10/20/22 Rx tablet vomiting #20 tabs verapamil 240 mg 24 hr 240 mg PO DAILY 10/20/22 10/20/22 History capsule,extended release cefdinir 300 mg capsule 300 mg PO Q12H 10 days #20 caps 10/21/22 Rx meclizine 12.5 mg tablet 25 mg PO Q6H #20 tabs 10/21/22 Rx prednisone 20 mg tablet 20 mg PO BID 5 days #10 tabs 10/21/22 Rx Allergies Allergy/AdvReac Type Severity Reaction Status Date / Time No Known Drug Allergies Allergy Verified 10/20/22 09:12 Exam Constitutional Vital Signs, click to edit/add: Last Vital Signs Temp 98.3 F 10/23/22 13:47 Pulse 81 10/23/22 16:02 Resp 18 10/23/22 13:47 BP 147/71 H 10/23/22 13:47 Pulse Ox 95 10/23/22 13:47 O2 Del Method Room Air 10/23/22 13:47 O2 Flow Rate 1 10/21/22 05:12 Results Labs and Meds Lab results: Intake and Output 10/23/22 10/23/22 10/23/22 07:59 15:59 23:59 Output Total 900 / 2050 Balance -900 / -1330 Output: Urine 900 / 0 Other: # Voids 1 Assessment and Plan Assessment and Plan (1) Dizziness: (2) Hypertension: (3) Hypothyroidism: (4) Non-sustained ventricular tachycardia: Plan -Telemetry reviewed, longest NSVT run was 8 beats -Documented heart rate has ranged in the 70s-90s -Labs reviewed, maintain K+ >4, Mg2+ >2 -Continue Verapamil, will add low dose beta shana Metoprolol succ 25 mg -Echo read is pending, if unremarkable can discharge with event monitor otherwise consider inpatient ischemic evaluation -She will need follow-up with EP after discharge
[2022-10-23] MEDS: METOPROLOL SUCCINATE 25 MG TAB.ER.24H PO (18:31)
[2022-10-24] VITALS (7 sets, daily range): BP systolic 144; BP diastolic 71; PULSE 63–79; RESP 16; TEMP 36.7; O2SAT 94
[2022-10-24] MEDS: MECLIZINE HCL 12.5 MG TABLET 25 MG PO ×2 (02:04→09:33)
[2022-10-24 04:38] LABS: Basophils Percent Auto 0.4 % (0.2-2.0); Eosinophils Absolute Auto 0.5 10^3/uL (0.0-0.7); Eosinophils Percent Auto 5.9 % (0.9-7.0); Hematocrit 37.5 % (36.0-48.0); Hemoglobin 11.7 g/dL (12.0-16.0); Immature Granulocytes Abs Auto 0.02 10^3/uL (0.00-0.03); Immature Granulocytes Pct Auto 0.2 % (0.0-0.5); Lymphocytes Absolute Auto 2.1 10^3/uL (1.2-3.8); Lymphocytes Percent Auto 24.3 % (20.5-60.0); Mean Corpuscular HGB Conc 31.2 g/dL (29.9-35.2); Mean Corpuscular Hemoglobin 31.4 pg (26.7-34.0); Mean Corpuscular Volume 100.5 fL (81.0-99.0); Mean Platelet Volume 10.1 fL (9.5-13.5); Monocytes Absolute Auto 0.7 10^3/uL (0.3-0.8); Monocytes Percent Auto 7.7 % (1.7-12.0); Neutrophils Absolute Auto 5.2 10^3/uL (1.4-6.5); Neutrophils Percent Auto 61.5 % (43.0-75.0); Platelet Count 278 10^3/uL (150-450); Red Blood Count 3.73 10^6/uL (4.20-5.40); Red Cell Distribution Width 13.2 % (11.0-15.0); White Blood Count 8.4 10^3/uL (4.0-11.0)
[2022-10-24 04:59] LABS: Anion Gap 7.4; BUN Creatinine Ratio 15.9; C Reactive Protein 0.9 mg/dL (<=1.0); Calcium 8.4 mg/dL (8.5-10.1); Carbon Dioxide 32.5 mmol/L (21.0-32.0); Chloride 108 mmol/L (98-107); Estimated GFR (African America >60 (>=60); Estimated GFR (Non-African Ame >60 (>=60); Glucose 76 mg/dL (74-106); Magnesium 1.6 mg/dL (1.8-2.4); Potassium 3.9 mmol/L (3.5-5.1); Sodium 144 mmol/L (136-145)
[2022-10-24] MEDS: ACETAMINOPHEN 500 MG TABLET 1000 MG PO (06:04)
[2022-10-24] MEDS: OMEPRAZOLE 40 MG CAPSULE.DR PO (06:04)
[2022-10-24] MEDS: LEVOTHYROXINE SODIUM 88 MCG TABLET PO (06:04)
--- NOTE | 2022-10-24 07:03 | PM.PN ---
Progress Note: Subjective Subjective Interval history: Patient with persistent vertigo, definite spinning sensation, now notices more when she is moving to her left. She does somewhat feel better today. So far her gait is somewhat better than previous day. Exam Constitutional Vital Signs, click to edit/add: Last Vital Signs Temp 98.1 F 10/24/22 06:09 Pulse 67 10/24/22 06:09 Resp 16 10/24/22 06:09 BP 144/71 H 10/24/22 06:09 Pulse Ox 94 L 10/24/22 06:09 O2 Del Method Room Air 10/24/22 06:09 O2 Flow Rate 1 10/21/22 05:12 Progress Note: Objective Labs Labs: Short CBC 10/24/22 Range/Units 04:17 WBC 8.4 (4.0-11.0) 10^3/uL Hgb 11.7 L (12.0-16.0) g/dL Hct 37.5 (36.0-48.0) % Plt Count 278 (150-450) 10^3/uL BMP 10/24/22 04:17 Sodium 144 Potassium 3.9 Chloride 108 H Carbon Dioxide 32.5 H BUN 13.0 Creatinine 0.82 Glucose 76 Calcium 8.4 L Progress Note: A&P Assessment and Plan (1) Dizziness: (2) Hypertension: (3) Hypothyroidism: (4) Non-sustained ventricular tachycardia:
[2022-10-24] MEDS: LISINOPRIL 10 MG TABLET 20 MG PO (09:32)
[2022-10-24] MEDS: METOPROLOL SUCCINATE 25 MG TAB.ER.24H 50 MG PO (09:32)
[2022-10-24] MEDS: ASPIRIN 325 MG TABLET.DR PO (09:32)
[2022-10-24] MEDS: VERAPAMIL HCL ER 240 MG TABLET PO (09:32)
[2022-10-24] MEDS: DULOXETINE HCL 60 MG CAPSULE.DR PO (09:32)
--- NOTE | 2022-10-24 11:06 | CA_ITS ---
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1940 Requested By: ALEK MORA Order Number: [id number] Reading MD: CAROLE MARCELO Interpretive Statements Predominant rhythm is sinus with average rate of 85 bpm Tachycardia - max rate of 265 bpm - 23 episodes of PSVT w/ longest duration of 16 beats - longest episode of 46min 8sec w/ rates of 106-116 bpm Bradycaridia - min rate of 47 bpm - longest episode of 2h 2min 46sec with rates of 48-53 bpm Ventricular ectopy - 27 total - 19 PVC - 4 couplets NSVT - 1 episode of 4 beat duration Patient triggered events: 5 - associated with NSR Impression: Predominant rhythm is sinus with average rate of 85 bpm Fastest rate was 265 (NSVT) and slowest rate of 47 bpm 19 PVC, 4 couplets 1 episodes of NSVT of 4 beat duration No atrial fibrillation, blocks or pauses Electronically Signed On 11-10-2022 7:20:32 EDT by CAROLE MARCELO
--- NOTE | 2022-10-24 16:45 | PM.DS1 ---
DS: Providers Provider Date of admission: 10/20/22 13:46 Primary care physician: CINTIA LUBIN Consults: 10/20/22 16:09 Physical Therapy Eval and Treat Routine Reason for consultation: vertigo 10/22/22 15:15 Occupational Therapy Eval and Treat Routine Reason for consultation: rehab Has provider been notified: Yes 10/22/22 15:16 Consult to TeleNeurology Routine Consulting Provider: Reason for consultation: vertigo Has provider been notified: No 10/22/22 15:31 Consult to Cardiology Routine Consulting Provider: Alicia Flores Reason for consultation: v-tach - asymptomatic Has provider been notified: No 10/22/22 17:25 Consult to Telestroke Routine Consulting Provider: Claudio Kraus Reason for consultation: Teleneurologist wanted telestroke consulted -= post ciculation stroke 10/23/22 08:30 Consult to Rn Lpn Lvn Routine Has provider been notified: No Reason for consult:: [facility] DS: Diagnosis Discharge Diagnosis (1) Dizziness: (2) Hypertension: (3) Hypothyroidism: (4) Non-sustained ventricular tachycardia: DS: Summary Hospital Course Hospital Course: Patient was presented to the emergency room with increasing dizziness. Unable to control at home. Medications given in ER without success. Patient is admitted, had rehab, meclizine, antibiotics and steroids on 2 occasions, patient did not improve over the first 36 hours so concern for posterior CVA, consulted teleneurology for their evaluation, they were concerned about the same issue so consult to telestroke, telestroke did not believe she had a posterior circulation CVA, so back to arthritis uncontrolled, meclizine was continued, patient improving without the maneuvers. But not to the point that she can ambulate safely she was transferred to rehab. Medications see list. Follow-up with PCP at discharge Status at Discharge Overall status at discharge: patient is not back to baseline Time Spent with Patient Time attestation: Total time spent providing and/or coordinating discharge services: Quality: Stroke Symptom Onset Unknown: No Exam Constitutional Vital Signs, click to edit/add: Last Vital Signs Temp 98.1 F 10/24/22 06:09 Pulse 77 10/24/22 09:54 Resp 16 10/24/22 06:09 BP 144/71 H 10/24/22 06:09 Pulse Ox 94 L 10/24/22 06:09 O2 Del Method Room Air 10/24/22 06:09 O2 Flow Rate 1 10/21/22 05:12 Documenting provider has reviewed patient's vital signs: yes Common normals: no apparent distress HENMT Common normals: normocephalic (Positive nystagmus on bilateral conjugate gaze reproducing her symptoms) Chest Common normals: inspection of chest normal Cardio Common normals: regular rate, regular rhythm and no gallops Neuro Common normals: oriented x3 ( nystagmus on bilateral conjugate gaze -0-but seems to be less symtomatic) and CN's II-XII intact bilaterally DS: Data Data Completed and Pending Labs on day of discharge: Labs from last 24 hours 10/24/22 04:17 WBC 8.4 RBC 3.73 L Hgb 11.7 L Hct 37.5 MCV 100.5 H MCH 31.4 MCHC 31.2 RDW 13.2 Plt Count 278 MPV 10.1 Neut % (Auto) 61.5 Lymph % (Auto) 24.3 [place] % (Auto) 7.7 Eos % (Auto) 5.9 Baso % (Auto) 0.4 Neut # (Auto) 5.2 Lymph # (Auto) 2.1 [place] # (Auto) 0.7 Eos # (Auto) 0.5 Baso # (Auto) 0.0 Abs Immat Gran (auto) 0.02 Imm/Tot Granulo (auto) 0.2 Sodium 144 Potassium 3.9 Chloride 108 H Carbon Dioxide 32.5 H Anion Gap 7.4 BUN 13.0 Creatinine 0.82 Est GFR ( Amer) >60 Est GFR (Non-Af Amer) >60 BUN/Creatinine Ratio 15.9 Glucose 76 Calcium 8.4 L Magnesium 1.6 L C-Reactive Protein 0.9 Discharge Plan Discharge Disposition: Xfer SNF Condition: Good Discharge Medications: New ondansetron 4 mg tablet,disintegrating 4 mg PO Q6H PRN (Reason: nausea and vomiting) Qty: 20 0RF meclizine [Antivert] 25 mg tablet,chewable 25 mg PO QID PRN (Reason: dizziness) Qty: 20 0RF meclizine 12.5 mg Tablet 25 mg PO Q6H Qty: 20 0RF cefdinir 300 mg capsule 300 mg PO Q12H 10 Days Qty: 20 0RF prednisone 20 mg tablet 20 mg PO BID 5 Days Qty: 10 0RF Continued duloxetine 60 mg capsule,delayed release(DR/EC) 60 mg PO DAILY anastrozole 1 mg tablet 1 mg PO DAILY levothyroxine 88 mcg tablet 88 mcg PO QAM omeprazole 40 mg capsule,delayed release(DR/EC) 40 mg PO DAILY verapamil 240 mg capsule,ext rel. 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 cardiology regarding holter monitor, 7 day monitor, Discharge Date/Time: 10/24/22 13:10
== END 2022-10-24 13:10 | DRG 149 ==
LOC: ER 13:27 → MS 13:47
PROVIDERS: Admitting Provider Family Medicine; Emergency Provider Emergency Medicine; PCP Family Medicine; Visit Provider Family Medicine
DX: R42 Dizziness and giddiness (principal); I47.20 Ventricular tachycardia, unspecified; I10 Essential (primary) hypertension; H55.00 Unspecified nystagmus; E86.0 Dehydration; E03.9 Hypothyroidism, unspecified; Z79.890 Hormone replacement therapy; Z87.891 Personal history of nicotine dependence; Z83.3 Family history of diabetes mellitus; Z82.49 Family history of ischemic heart disease and other diseases of the circulatory system; Z82.3 Family history of stroke; Z80.9 Family history of malignant neoplasm, unspecified; Z82.5 Family history of asthma and other chronic lower respiratory diseases; Z79.899 Other long term (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 therapy
CPT/HCPCS: 36415; 70450; 70496; 70498; 70551; 71045; 80048; 81001; 83735; 85025; 86140; 87086; 93005; 93242; 93306; 94761; 96361; 96365; 96375; 96376; 97110; 97112; 97140; 97161; 97165; 97530; 97535; 99285; Q3014; Q9967

== ENCOUNTER 2022-11-13 07:01 | Outpatient (OUT) | payer MEDICARE, SELFPAY ==
--- NOTE | 2022-11-13 07:20 | XR_ITS ---
The [address] [address] Patient Name: FANTASMA LEWIS MRN: [id number] date: 1940 Sex: F Assigned Patient Location: [facility] Current Patient Location: [facility] Accession/Order Number: [id number] Exam Date: 11/13/2022 07:15 Report Date: 11/13/2022 07:30 At the request of: NOE HORNER Procedure: XR abdomen 1V EXAMINATION: XR abdomen 1V HISTORY: Kidney Stones N20.0 COMPARISON: No relevant comparison available. FINDINGS: KIDNEY/URETER - RIGHT: No visible renal or ureteral calcifications. KIDNEY/URETER - LEFT: No visible renal or ureteral calcifications. PELVIS: No visible ureteral calcifications. Any visible calcifications favor phleboliths. BOWEL: No abnormal dilation or deviation. BONES: No acute abnormality. 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 No abnormal gaseous collections. XR/XR abdomen 1V IMPRESSION: No definite urinary tract calculi Electronically authenticated by: AUNDREA IVERSON Date: 11/13/2022 07:30
== END 2022-11-13 07:02 | disposition home or self-care (01) ==
LOC: RAD 07:02
PROVIDERS: PCP Family Medicine; Visit Provider Urology
DX: N20.0 Calculus of kidney (principal)
CPT/HCPCS: 74018

== ENCOUNTER 2023-10-27 17:20 | Emergency (ER) | payer MEDICARE, SELFPAY ==
[2023-10-27] VITALS (11 sets, daily range): BP systolic 111–153; BP diastolic 50–82; PULSE 103; TEMP 37; O2SAT 94–98; BMI 27.6
--- NOTE | 2023-10-27 17:43 | CT_ITS ---
[address] [address] Patient Name: FANTASMA LEWIS MRN: [id number] date: 1940 Sex: F Assigned Patient Location: ER Current Patient Location: ER Accession/Order Number: [id number] Exam Date: 10/27/2023 18:14 Report Date: 10/27/2023 19:25 At the request of: JONES MUJICA Procedure: CT abdomen pelvis wo con CT ABDOMEN AND PELVIS WITHOUT CONTRAST, 10/27/2023. HISTORY: Abdominal pain. Right flank pain. COMPARISON: CT abdomen and pelvis with contrast, 11/09/2021. TECHNIQUE: Noncontrast axial CT images obtained through the abdomen and pelvis. Reconstructions obtained in the sagittal and coronal planes. Dose reduction techniques were achieved by using automated exposure control and/or adjustment of mA and/or kV according to patient size and/or use of iterative reconstruction technique. FINDINGS: Lung bases are clear. No pleural effusion. Heart size is normal. No pericardial effusion. Liver is unremarkable. Gallbladder normal. No abnormal bile duct dilatation. Pancreas unremarkable. Spleen normal. Adrenal glands normal. There are a few renal cysts. No obstructing kidney stones. No hydronephrosis. No ureteral calculi. Stomach normal. Duodenum normal. No bowel obstruction. There are some diverticula along the sigmoid colon. No evidence of acute diverticulitis. No ascites or free air. In the pelvis, bladder unremarkable. Uterus unremarkable. No adnexal masses. Rectum normal. No free fluid in the pelvis. No pelvic lymphadenopathy. 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 No acute compression fracture. CT/CT abdomen pelvis wo con IMPRESSION: 1. No obstructing kidney stones. No hydronephrosis. There are a few simple cysts in the kidneys that are stable. 2. No acute inflammation of the small bowel or colon. Sigmoid colon diverticulosis is noted without acute inflammation. 3. 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 No acute lumbar compression fracture. Electronically authenticated by: PHANI SOTO Date: 10/27/2023 19:25
--- NOTE | 2023-10-27 17:45 | ED_ITS ---
HPI HPI - General Adult General Chief complaint: Nausea/Vomiting/Diarrhea Stated complaint: Abdominal Pain, N/V, Diarrhea Time Seen by Provider: 10/27/23 17:37 Source: patient Mode of arrival: walk-in Limitations: no limitations History of Present Illness HPI narrative: Patient is an 83-year-old female who presents to the emergency department for the evaluation of vomiting and diarrhea associated with lower abdominal cramping for the last several days. She states she believes she has a history of IBS. She states she had vomiting at the beginning of the course of her illness and now she just feels nauseous. No fevers or upper respiratory symptoms. She was treated for urinary tract infection last week from the [facility] and states she was seen again for continued urinary tract infection symptoms, she was referred to the ER. She does have a history of kidney stones. She denies any hematuria. Related Data Home Medications ?Medication ?Instructions ?Recorded ?Confirmed anastrozole 1 mg tablet 1 mg PO DAILY 10/20/22 10/20/22 denosumab 60 mg/mL subcutaneous 60 mg subcut .twice a year 10/20/22 10/20/22 syringe (Prolia) duloxetine 60 mg capsule,delayed 60 mg PO DAILY 10/20/22 10/20/22 release levothyroxine 88 mcg tablet 88 mcg PO QAM 10/20/22 10/20/22 omeprazole 40 mg capsule,delayed 40 mg PO DAILY 10/20/22 10/20/22 release verapamil 240 mg 24 hr 240 mg PO DAILY 10/20/22 10/20/22 capsule,extended release Previous Rx's ?Medication ?Instructions ?Recorded meclizine 25 mg chewable tablet 25 mg PO QID PRN dizziness #20 tabs 10/20/22 (Antivert) ondansetron 4 mg disintegrating 4 mg PO Q6H PRN nausea and 10/20/22 tablet vomiting #20 tabs cefdinir 300 mg capsule 300 mg PO Q12H 10 days #20 caps 10/21/22 meclizine 12.5 mg tablet 25 mg (2 x 12.5 mg) PO Q6H #20 tabs 10/21/22 prednisone 20 mg tablet 20 mg PO BID 5 days #10 tabs 10/21/22 ciprofloxacin HCl 500 mg tablet 500 mg PO BID #14 tabs 10/27/23 (Cipro) hyoscyamine sulfate 0.125 mg 0.125 mg PO Q6H PRN abdominal pain 10/27/23 tablet (Levsin) #12 tabs ondansetron 4 mg disintegrating 4 mg PO Q6H PRN nausea and 10/27/23 tablet vomiting #12 tabs Allergies Allergy/AdvReac Type Severity Reaction Status Date / Time No Known Drug Allergies Allergy Verified 10/20/22 09:12 Opioid HPI Opioid Management Most Recent Opioid Data: Last Pain Scale 0 10/24/22 09:26 Review of Systems ROS Constitutional Denies: fever or chills Ears, nose, mouth, and throat Denies: throat pain or nasal congestion Respiratory Denies: shortness of breath Gastrointestinal Reports: abdominal pain, nausea, vomiting and diarrhea Musculoskeletal Denies: back pain or neck pain Hematologic/Lymphatic Denies: easy bruising or easy bleeding PFSH PFSH Medical History (Updated 10/27/23 @ 19:35 by CRISSY Lagunas) IBS (irritable bowel syndrome) ?K58.9 - Irritable bowel syndrome without diarrhea (ICD-10) Rheumatoid arthritis ?M06.9 - Rheumatoid arthritis, unspecified (ICD-10) H/O nephrolithotomy with removal of calculi ?Z98.890 - Other specified postprocedural states (ICD-10) ?Z87.442 - Personal history of urinary calculi (ICD-10) Kidney stone ?N20.0 - Calculus of kidney (ICD-10) Goiter colloid, toxic, 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 - Thyrotoxicosis with toxic multinodular goiter without thyrotoxic crisis or storm (ICD-10) Hypothyroidism ?E03.9 - Hypothyroidism, unspecified (ICD-10) Hypertension ?I10 - Essential (primary) hypertension (ICD-10) Breast cancer ?C50.919 - Malignant neoplasm of unspecified site of unspecified female breast (ICD-10) Surgical History (Updated 10/21/22 @ 07:04 by Arelis Jade RN) Cataract (lens) fragments in eye following cataract surgery, bilateral ?H59.023 - Cataract (lens) fragments in eye following cataract surgery, bilateral (ICD-10) History of knee replacement procedure of right knee ?Z96.651 - Presence of right artificial knee joint (ICD-10) History of knee replacement procedure of left knee ?Z96.652 - Presence of left artificial knee joint (ICD-10) Hx of appendectomy ?Z90.49 - Acquired absence of other specified parts of digestive tract (ICD- 10) History of lumpectomy of right breast ?Z98.890 - Other specified postprocedural states (ICD-10) Family History (Updated 10/20/22 @ 14:23 by Brenda Mena) Mother Family history of CHF (congestive heart failure) Family history of diabetes mellitus Family history of hypertension Family history of myocardial infarction Grandfather Family history of COPD (chronic obstructive pulmonary disease) Family history of stroke Grandmother Family history of cancer Brother Family history of diabetes mellitus Father Family history of hypertension Social History Within the past year, how often did you have a drink containing alcohol: never Within the past year, how many standard drinks containing alcohol did you have on a typical day: 1 or 2 Within the past year, how often did you have six or more drinks on one occasion: never Total score: 0 Score interpretation: A score less than 3 is consistent with normal alcohol consumption. Smoking status: Former smoker Non-prescribed substance use: denies use Previous occupational history: Retired Highest level of school completed/degree received: high school graduate Are you now , , , , never or living with a partner: In a typical week, how many times do you talk on the telephone with family, friends, or neighbors: 3 or more times per week How often do you get together with friends or relatives: 3 or more times per week How often do you attend jew or confucianism services: 4 or more times per year Do you belong to any clubs or organizations such as jew groups unions, fraternal or athletic groups, or school groups: no Total score: 2 Score interpretation: A score of greater than or equal to 2 indicates the lowest level of social isolation. Little interest or pleasure in doing things: not at all Feeling down, depressed, or hopeless: not at all Feel stressed/tense/nervous/anxious/difficulty sleeping: not at all Gender Identity: female Exam Narrative Exam Narrative: Gen.: Awake, alert, in no distress Head: Normocephalic, atraumatic ENT: Moist mucous membranes Respiratory: No respiratory distress Gastrointestinal: Abdomen is soft, nondistended and nontender to palpation; no guarding or rebound Extremities: Moves extremities equally Psych: Normal mood and affect Neuro: No focal neuro deficit Skin: Warm, dry, intact Constitutional Vital Signs, click to edit/add: Last Vital Signs Temp 98.6 F 10/27/23 17:31 Pulse 103 H 10/27/23 17:31 Resp 17 10/27/23 17:31 BP 153/82 H 10/27/23 17:31 Pulse Ox 98 10/27/23 17:31 O2 Del Method Room Air 10/27/23 17:31 Course Vital Signs Vital signs: Vital Signs Temperature 98.6 F 10/27/23 17:31 Pulse Rate 103 H 10/27/23 17:31 Respiratory Rate 17 10/27/23 17:31 Blood Pressure 153/82 H 10/27/23 17:31 Pulse Oximetry 98 10/27/23 17:31 Oxygen Delivery Method Room Air 10/27/23 17:31 Temperature 98.6 F 10/27/23 17:31 Pulse Rate 103 H 10/27/23 17:31 Respiratory Rate 17 10/27/23 17:31 Blood Pressure 153/82 H 10/27/23 17:31 Pulse Oximetry 98 10/27/23 17:31 Oxygen Delivery Method Room Air 10/27/23 17:31 Medical Decision Making MDM Narrative Medical decision making narrative: Patient treated with IV fluids, Zofran, Levsin and potassium as she was noted to have mild hypokalemia. The remainder of her lab studies are unremarkable. Abdomen is soft and benign in the ER and CT shows no evidence of kidney stone or hydronephrosis. There is no evidence of colitis or other intraperitoneal abnormalities. Patient will be treated for UTI with Cipro, Zofran, Levsin for home. She may be having IBS symptoms due to multiple and rounds of antibiotics for the urinary tract infection. Follow-up with PCP and return to the ER if symptoms change or worsen. SUPERVISED APC VISIT, PHYSICIAN ATTESTATION: Based on the medical record the care appears appropriate. ? Medical Records Medical records reviewed: Yes I reviewed the patient's medical records Lab Data Lab results reviewed: Yes I reviewed the patient's lab results Labs: Lab Results 10/27/23 10/27/23 Range/Units 17:55 18:00 WBC 12.2 H (4.0-11.0) 10^3/uL RBC 4.31 (4.20-5.40) 10^6/uL Hgb 13.7 (12.0-16.0) g/dL Hct 41.9 (36.0-48.0) % MCV 97.2 (81.0-99.0) fL MCH 31.8 (26.7-34.0) pg MCHC 32.7 (29.9-35.2) g/dL RDW 12.4 (11.0-15.0) % Plt Count 366 (150-450) 10^3/uL MPV 9.7 (9.5-13.5) fL Neut % (Auto) 76.5 H (43.0-75.0) % Lymph % (Auto) 14.3 L (20.5-60.0) % [place] % (Auto) 6.3 (1.7-12.0) % Eos % (Auto) 2.3 (0.9-7.0) % Baso % (Auto) 0.4 (0.2-2.0) % Neut # (Auto) 9.3 H (1.4-6.5) 10^3/uL Lymph # (Auto) 1.7 (1.2-3.8) 10^3/uL [place] # (Auto) 0.8 (0.3-0.8) 10^3/uL Eos # (Auto) 0.3 (0.0-0.7) 10^3/uL Baso # (Auto) 0.1 (0.0-0.1) 10^3/uL Abs Immat Gran (auto) 0.03 (0.00-0.03) 10^3/uL Imm/Tot Granulo (auto) 0.2 (0.0-0.5) % Sodium 137 (136-145) mmol/L Potassium 3.1 L (3.5-5.1) mmol/L Chloride 97 L (98-107) mmol/L Carbon Dioxide 37.1 H (21.0-32.0) mmol/L Anion Gap 6.0 BUN 19.0 H (7.0-18.0) mg/dL Creatinine 0.91 (0.55-1.02) mg/dL Est GFR ( Amer) >60 (>=60) Est GFR (Non-Af Amer) 59 L (>=60) BUN/Creatinine Ratio 20.9 Glucose 95 (74-106) mg/dL Lactate 0.6 (0.4-2.0) mmol/L Calcium 10.1 (8.5-10.1) mg/dL Total Bilirubin 0.6 (0.2-1.0) mg/dL AST 12 L (15-37) U/L ALT 15 (14-59) U/L Alkaline Phosphatase 78 (46-116) U/L Total Protein 7.4 (6.4-8.2) g/dL Albumin 3.9 (3.4-5.0) g/dL Globulin 3.5 g/dL Albumin/Globulin Ratio 1.1 Lipase 24.0 (16.0-77.0) U/L Urine Color Yellow (YELLOW) Urine Clarity Clear (CLEAR) Urine pH 6.5 (5.0-9.0) Ur Specific [place] 1.010 (1.005-1.025) Urine Protein Trace (NEG/TRACE) mg/dL Urine Glucose (UA) Negative (NEGATIVE) mg/dL Urine Ketones Trace A (NEGATIVE) mg/dL Urine Occult Blood Negative (NEGATIVE) Urine Nitrite Negative (NEGATIVE) Urine Bilirubin Negative (NEGATIVE) Urine Urobilinogen 0.2 (0.2-1.0) EU/dL Ur Leukocyte Esterase Large A (NEGATIVE) Urine RBC 2-5 A (0-2) #/HPF Urine WBC 20-50 A (NONE SEEN) #/HPF Ur Squamous Epith Cells Moderate A (NONE/RARE) #/LPF Urine Crystals None seen (None Seen) #/HPF Urine Bacteria Small A (NONE SEEN) #/HPF Urine Casts None seen (NONE SEEN) #/LPF Urine Mucus Trace A (NONE SEEN) Ur Culture Indicated? Yes Imaging Data CT scan - abdomen: Attestation: I have reviewed the pertinent imaging results. Radiologist's impression: ITS Impressions Abdomen/Pelvis CT 10/27/23 17:43 IMPRESSION: 1. No obstructing kidney stones. No hydronephrosis. There are a few simple cysts in the kidneys that are stable. 2. No acute inflammation of the small bowel or colon. Sigmoid colon diverticulosis is noted without acute inflammation. 3. 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 No acute lumbar compression fracture. Electronically authenticated by: PHANI SOTO Date: 10/27/2023 19:25 Discharge Plan Discharge Chief Complaint: Nausea/Vomiting/Diarrhea Clinical Impression: Acute UTI, Abdominal pain, Nausea Patient Disposition: Home, Self-Care Time of Disposition Decision: 19:35 Condition: Good Prescriptions / Home Meds: New ciprofloxacin HCl [Cipro] 500 mg tablet 500 mg PO BID Qty: 14 0RF hyoscyamine sulfate [Levsin] 0.125 mg tablet 0.125 mg PO Q6H PRN (Reason: abdominal pain) Qty: 12 0RF ondansetron 4 mg tablet,disintegrating 4 mg PO Q6H PRN (Reason: nausea and vomiting) Qty: 12 0RF No Action duloxetine 60 mg capsule,delayed release(DR/EC) 60 mg PO DAILY anastrozole 1 mg tablet 1 mg PO DAILY levothyroxine 88 mcg tablet 88 mcg PO QAM omeprazole 40 mg capsule,delayed release(DR/EC) 40 mg PO DAILY verapamil 240 mg capsule,ext rel. pellets 24 hr 240 mg PO DAILY ondansetron 4 mg tablet,disintegrating 4 mg PO Q6H PRN (Reason: nausea and vomiting) Qty: 20 0RF meclizine [Antivert] 25 mg tablet,chewable 25 mg PO QID PRN (Reason: dizziness) Qty: 20 0RF Prolia 60 mg/mL syringe 60 mg subcut .twice a year meclizine 12.5 mg Tablet 25 mg PO Q6H Qty: 20 0RF cefdinir 300 mg capsule 300 mg PO Q12H 10 Days Qty: 20 0RF prednisone 20 mg tablet 20 mg PO BID 5 Days Qty: 10 0RF Print Language: Kyrgyz Instructions: Urinary Tract Infection in Women (ED), Abdominal Pain (ED) Referrals: CINTIA LUBIN [Primary Care Provider] - 1 week
[2023-10-27 18:08] LABS: Basophils Absolute Auto 0.1 10^3/uL (0.0-0.1); Basophils Percent Auto 0.4 % (0.2-2.0); Eosinophils Absolute Auto 0.3 10^3/uL (0.0-0.7); Eosinophils Percent Auto 2.3 % (0.9-7.0); Hematocrit 41.9 % (36.0-48.0); Hemoglobin 13.7 g/dL (12.0-16.0); Immature Granulocytes Abs Auto 0.03 10^3/uL (0.00-0.03); Immature Granulocytes Pct Auto 0.2 % (0.0-0.5); Lymphocytes Absolute Auto 1.7 10^3/uL (1.2-3.8); Lymphocytes Percent Auto 14.3 % (20.5-60.0); Mean Corpuscular HGB Conc 32.7 g/dL (29.9-35.2); Mean Corpuscular Hemoglobin 31.8 pg (26.7-34.0); Mean Corpuscular Volume 97.2 fL (81.0-99.0); Mean Platelet Volume 9.7 fL (9.5-13.5); Monocytes Absolute Auto 0.8 10^3/uL (0.3-0.8); Monocytes Percent Auto 6.3 % (1.7-12.0); Neutrophils Absolute Auto 9.3 10^3/uL (1.4-6.5); Neutrophils Percent Auto 76.5 % (43.0-75.0); Platelet Count 366 10^3/uL (150-450); Red Blood Count 4.31 10^6/uL (4.20-5.40); Red Cell Distribution Width 12.4 % (11.0-15.0); White Blood Count 12.2 10^3/uL (4.0-11.0)
[2023-10-27 18:09] LABS: Bilirubin Urine NEGATIVE (NEGATIVE); Blood Urine NEGATIVE (NEGATIVE); Clarity Urine CLEAR (CLEAR); Color Urine YELLOW (YELLOW); Glucose Urine UA NEGATIVE (NEGATIVE); Ketones Urine TRACE mg/dL (NEGATIVE); Leukocyte Esterase Urine LARGE (NEGATIVE); Nitrite Urine NEGATIVE (NEGATIVE); Protein Urine TRACE mg/dL (NEG/TRACE); Urobilinogen Urine 0.2 EU/dL (0.2-1.0); pH Urine 6.5 (5.0-9.0)
[2023-10-27 18:10] LABS: Urine Microscopic Indicated YES
[2023-10-27 18:19] LABS: WBC Urine 20-50 #/HPF (NONE SEEN)
[2023-10-27 18:20] LABS: Bacteria Urine SMALL #/HPF (NONE SEEN); Cast Seen? NONE SEEN #/LPF (NONE SEEN); Crystals Seen? None Seen #/HPF (None Seen); Mucus Urine TRACE (NONE SEEN); Squamous Epithelial Cell Urine MODERATE #/LPF (NONE/RARE); Urine Culture Indicated YES
[2023-10-27] MEDS: 0.9 % SODIUM CHLORIDE 1,000 ML 999 ML IV (18:21)
[2023-10-27] MEDS: ONDANSETRON PF 4 MG/2 ML VIAL IV (18:21)
[2023-10-27 18:26] LABS: Lactate/Lactic Acid 0.6 mmol/L (0.4-2.0)
[2023-10-27 18:33] LABS: Alanine Aminotransferase 15 U/L (14-59); Albumin Globulin Ratio 1.1; Albumin Level 3.9 g/dL (3.4-5.0); Alkaline Phosphatase 78 U/L (46-116); Aspartate Amino Transferase 12 U/L (15-37); BUN Creatinine Ratio 20.9; Bilirubin Total 0.6 mg/dL (0.2-1.0); Calcium 10.1 mg/dL (8.5-10.1); Carbon Dioxide 37.1 mmol/L (21.0-32.0); Chloride 97 mmol/L (98-107); Estimated GFR (African America >60 (>=60); Estimated GFR (Non-African Ame 59 (>=60); Globulin 3.5 g/dL; Glucose 95 mg/dL (74-106); Potassium 3.1 mmol/L (3.5-5.1); Sodium 137 mmol/L (136-145); Total Protein 7.4 g/dL (6.4-8.2)
--- NOTE | 2023-10-27 18:36 | PC.NURSE ---
this patient awake and alert sitting upright on the bed and watching tv, this patient's iv site shows no signs of infiltration or pain to this iv site per patient. this patient is aware that we are waiting on all of the test result to come back. this patient voices no complaints or needs at this time and this patient shows of signs of distress
[2023-10-27] MEDS: POTASSIUM CHLORIDE 10 MEQ ER TABLET 40 MEQ PO (19:04)
== END 2023-10-27 19:58 | disposition home or self-care (01) ==
PROVIDERS: Physician Assistant; Emergency Provider Emergency Medicine; PCP Family Medicine
DX: N39.0 Urinary tract infection, site not specified (principal); R10.9 Unspecified abdominal pain; R11.0 Nausea; Z87.891 Personal history of nicotine dependence
CPT/HCPCS: 36415; 74176; 80053; 81001; 83605; 83690; 85025; 87045; 87046; 87086; 87427; 87493; 96361; 96374; 99285; J2405

== ENCOUNTER 2023-11-01 09:42 | Outpatient (REF) | payer MEDICARE, SELFPAY ==
[2023-11-02 14:27] LABS: C. Difficile PCR NEGATIVE (NEGATIVE)
== END 2023-11-01 09:43 | disposition home or self-care (01) ==
LOC: LAB 09:42
PROVIDERS: PCP Family Medicine; Visit Provider Physician Assistant
DX: R19.7 Diarrhea, unspecified (principal)
CPT/HCPCS: 87045; 87046; 87427; 87493

== ENCOUNTER 2023-11-04 12:04 | Outpatient (REF) | payer MEDICARE, SELFPAY ==
--- OUTSIDE RECORDS SUMMARY | 2023-11-04 12:24 | XMS_ITS | CCD ---
Author Organization [facility] Care Team Providers Care Prisoner Classification Interviewer Name Role Phone Roney Leroy Primary Care Provider UnavailPooja England Attending Provider Unavailable Afshin Leroy Attending Provider Unavailable Roney Leroy DO Primary Care Provider Meir Morrissey Unavailable Roney Leroy DO Primary Care Provider RONEY LEROY Primary Care Physician [phone] Isiah Alvares Consulting Unavailable SCOTT COLVIN Attending Unavailable SCOTT COLVIN Admitting Unavailable RAD, DR CHAMBERLAIN Primary Care Unavailable WARREN TRAN Consulting Unavailable SCOTT COLVIN Consulting Unavailable MARLAKIN TASHI Consulting Unavailable EVENS, DR NOE Bailey Admitting Unavailable EVENS, DR NOE Bailey Attending Unavailable EVENS, DR NOE Bailey Consulting Unavailable RAD, DR CHAMBERLAIN Primary Care Unavailable ZAYRA, DR AUNDREA Thibodeaux Consulting Unavailable SCOTT COLVIN Admitting Unavailable RAD, DR CHAMBERLAIN Primary Care Unavailable ZAYRA, DR AUNDREA Thibodeaux Consulting Unavailable SCOTT COLVIN Attending Unavailable CRISSY AMBRIZ Consulting Unavailable Roney Leroy DO Primary Care Provider Noe LOZA Attending Unavailable Noe LOZA Attending Unavailable Noe LOZA Attending Unavailable Roney Leroy DO Primary Care Provider AFSHIN ROCHA Attending Unavailable RONEY LEROY Primary Care Unavailable Roney Leroy DO Primary Care Provider Emanuel AGUAYO, Marifer Gauthier Unavailable Gunner Hidalgo DO Unavailable Chalo Menjivar MD Unavailable Roney Leroy DO Primary Care Provider DO Roney Leroy Primary Care Provider [phone] [place]be[place], DO [place] Referring Provider JAYANT SiddiquiN Doris Attending Provider Mounika Dick Admitting Unavailable [place], Mounika Chan Attending Unavailable Jil Benites Referring Unavailable Roney Leroy Primary Care Unavailable Chen, Elsa Llanos Admitting Unavail able Chen, Elsa Llanos Attending Unavail able Itbelem, Gunner Referring Unavailable RadRoney dove Primary Care Unavailable GOSHE, NIC Gauthier Referring Unavailable RADRONEY Primary Care Unavailable GOSHE, NIC Gauthier Attending Unavailable RADRONEY DOVE Primary Care Unavailable OTTOCHALO Referring Unavailable RADRONEY Primary Care Unavailable OTTOCHALO Castillo Attending Unavailable OTTOCHALO Referring Unavailable RADRONEY DOVE Primary Care Unavailable RAD, RONEY Phillips Primary Care Unavailable MAMMO, BRANDO Lind Referring Unavailable MAMMO, BRANDO Lind Attending Unavailable RONEY ELROY Primary Care Unavailable OTTOCHALO Referring Unavailable RADRONEY DOVE Primary Care Unavailable MAMMO, BRANDO Lind Referring Unavailable MAMMO, BRANDO Lind Attending Unavailable RONEY LEROY Primary Care Unavailable OTTOCHALO Referring Unavailable MAMMO, BRANDO Lind Attending Unavailable RONEY LEROY Primary Care Unavailable MAMMO, BRANDO Lind Referring Unavailable RADRONEY Primary Care Unavailable OTTO, CHALO Referring Unavailable RAD, RONEY Phillips Primary Care Unavailable MAMMO, BRANDO Lind Attending Unavailable MAMMO, BRANDO Lind Referring Unavailable RADRONEY Primary Care Unavailable MAMMO, BRANDO Lind Attending Unavailable MAMMO, BRANDO Lind Referring Unavailable CUTLERSAGARMOUNIKA Rocio Referring Unavailable ITZKOWITZ, GUNNER Gregory Attending Unavailable CUTLERSAGARMOUNIKA L Attending Unavailable HANG WHEELER Attending Unavailable TRAMAINE MILLS Attending Unavailable ITZGUNNER MENDEZ Attending Unavailable [place]S Attending Unavailable CUTMOUNIKA NASSAR Attending Unavailable RONEY LEROY Referring Unavailable SADE PALMA Attending Unavailable RONEY LEROY Referring Unavailable JAH SUTHERLAND Attending Unavailable HANG WHEELER Attending Unavailable CUTMOUNIKA NASSAR Attending Unavailable RONEY LEROY Referring Unavailable FRED DELANEY Attending Unavailable Unavailable Unavailable Unavailable Allergies Allergy Classification Reported Allergen(s) Allergy Type Date of Onset Reaction(s) Facility Hydroxychloroquine (1 source) Hydroxychloroquine Drug Allergy 06-29-19 Other: See Comments [facility] Work Phone: (20 sources) Hydroxychloroquine; Translations: [HYDROXYCHLOROQUINE] Drug Allergy 06-29-19 Other: See Comments [facility] Work Phone: Medications Current Medications Medication Drug Class(es) Dates Sig (Normalized) Sig (Original) acetaminophen 500 mg oral tablet (20 sources) Start: 03-17-2016 take 2 tablets by mouth three times daily acetaminophen (TYLENOL) 500 mg tablet Take 2 tablets by mouth three times daily. 03/17/2016 Active Start: 03-17-2016 take 2 tablets by mo uth every six hours as needed acetaminophen (Tylenol) 500 mg tablet Take 2 tablets (1,000 mg) by mouth every 6 hours if needed. 0 03/17/2016 Active Comment on above: Take 2 tablets by mo ut three times daily. [id number] 200 actuat albuterol 0.09 mg/actuat metered dose inhaler (20 sources) beta2-Adrenergic Agonist Start: 05-30-2022 albuterol HFA 90 mcg/act inhaler Start: 05-30-2022 albuterol 90 m cg/actuation inhaler if needed. 0 05/30/2022 Active Start: 02-16-2018 take 1 puff(s) by in halation every four to six hours Albuterol Sulfate Active 1 PUFF Inhalation EVERY 4-6 HOURS February 16, 2018 11:03am Start: 02-16-2018 End: 07-26-2018 Albuterol Sulfate Discontinu ed February 16, 2018 1:00am July 26, 2018 11:29am Start: 02-16-2018 End: 04-14-2019 take 1 puff(s) by inhalation every four to six hours Albuterol Sulfate (Proair Hfa) 90 mcg/actuation Hfa Aerosol Inhaler Discontinued 1 PUFF INHALATION EVERY 4-6 HOURS February 16, 2018 1:00am April 14, 2019 4:10pm Start: 04-03-2012 take 2 puff(s) by in halation every four hours as needed Albuterol Sulfate HFA 108 (90 Base) MCG/ACT 2 puffs as needed Inhalation every 4 hrs Mar, Active Start: 04-03-2012 take 2 puff(s) by in halation every four hours as needed Albuterol Sulfate HFA 108 (90 Base) MCG/ACT 2 puffs as needed Inhalation every 4 hrs Mar, Active take 1 puff(s) by in halation every four hours as needed for wheezing albuterol HFA (PROVENTIL HFA, VENTOLIN HFA) 90 mcg/actuation inhaler Inhale 1 Puff as instructed every 4 hours as needed for Wheezing/Shortness of Breath. Active Comment on above: Inhale 1 Puff as ins tructed every 4 hours as needed for Wheezing/Shortness of Breath. anastrozole 1 mg oral tablet (20 sources) Aromatase Inhibitor Start: 11-03-19 End: 11-24-19 take 1 tablet by mouth once daily anastrozole (ARIMIDEX) 1 mg tablet Take 1 mg by mouth once daily. 11/02/2018 Active Anastrozole Acti ve Comment on above: Take 1 mg by mouth o nce daily. benoxinate hydrochloride 4 mg/ml / fluorescein sodium 3 mg/ml ophthalmic solution (4 sources) Diagnostic Dye Start: 06-03-2023 End: 06-03-2023 fluorescein-benoxi lisa 0.3-0.4 % 1 Drop (FLURESS) Start: 04-29-2023 End: 04-29-2023 fluorescein-benoxinate 0.3-0 .4 % 1 Drop (FLURESS) Start: 01-27-2022 End: 01-28-2022 fluorescein-benoxinate 0.25- 0.4 % 1 Drop (FLURESS) Start: 05-06-2021 End: 05-06-2021 fluorescein-benoxinate 0.25- 0.4 % 1 Drop (FLURESS) chlorthalidone 25 mg oral tablet (14 sources) Thiazide-like Diuretic Start: 03-22-2023 take 1 tablet by mouth once daily in the morning chlorthalidone (HYGROTON) 25 mg tablet Take 25 mg by mouth every morning. 03/22/2023 Active Comment on above: Take 25 mg by mouth every morning. cholecalciferol 4000 unt oral capsule (20 sources) Vitamin D Start: 11-02-2018 take 4000 [IU] by mouth once daily Cholecalciferol (Vitamin D3) Active 4000 UNIT Oral Daily November 02, 2018 2:40pm Start: 02-26-2015 take 2 tablets by mo uth once daily cholecalciferol (VITAMIN D3) 2,000 unit tablet Take 2 tablets by mouth once daily. 0 02/26/2015 Active Start: 02-26-2015 take 2 tablets by mo uth once daily cholecalciferol (Vitamin D-3) 50 MCG (2000 UT) tablet Take 2 tablets (4,000 Units) by mouth once daily. 0 02/26/2015 Active Comment on above: Take 2 tablets by mo uth once daily. Cholecalciferol (Vitamin D3) (Vitamin D3) 4,000 unit Capsule (1 source) Start: 019 take 1 capsule by mouth once daily Cholecalciferol (Vitamin D3) (Vitamin D3) 4,000 unit Capsule Active 4000 UNIT PO Daily November 02, 2018 12:00am clindamycin 10 mg/ml medicated pad (20 sources) Lincosamide Antibacterial Start: Clindamycin Phosphate 1 % APPLY TO AFFECTED AREAS TWICE DAILY FOR FLARES 06/18/2021 Active Comment on above: APPLY TO AFFECTED AR EAS TWICE DAILY FOR FLARES dexamethasone 1 mg/ml / neomycin 3.5 mg/ml / polymyxin b [id number] unt/ml ophthalmic suspension (5 sources) Aminoglycoside Antibacterial, Polymyxin-class Antibacterial, Corticosteroid Start: 023 take 1 drop(s) into the eye(s) in the morning [id number] xAMETHasone (Maxitrol) 0.1 % ophthalmic suspension 1 drop in the morning and 1 drop in the evening. 0 02/23/2022 Active Start: 02-23-2022 End: 08-31-2022 take 1 drop(s) into the eye(s) twice daily neomycin/polymyxin b/dexametha(MAXITROL 3.5 MG/ML-10,000 UNIT/ML-0.1% EYE DROPS,SUSPENSION) Use 1 Drop in the right eye twice daily. 5 mL 0 02/23/2022 08/31/2022 Discontinued Comment on above: Use 1 Drop in the ri ght eye twice daily. dicyclomine hydrochloride 10 mg oral capsule (5 sources) Anticholinergic Start: 05-23-19 22 take 1 capsule by mouth three times daily as needed Dicyclomine HCl 10 MG 1 CAPSULE Orally tid prn for 30 days May, Active DULoxetine 60 mg delayed release oral capsule (20 sources) Serotonin and Norepinephrine Reuptake Inhibitor Start: 11-06-19 take 60 mg by mouth once daily Cymbalta 60 mg, Oral, Daily, Other (see comment) Start Date: 11/05/20 Status: Ordered Start: 11-07-2016 End: 06-23-2023 take 1 capsule by mouth once daily DULoxetine (CYMBALTA) 60 mg capsule Indications: Secondary osteoarthritis of multiple sites , Postlaminectomy syndrome, lumbar region take 1 capsule by mouth daily 90 capsule 3 06/23/2023 Active Comment on above: TAKE 1 CAPSULE DAILY erythromycin 0.005 mg/mg ophthalmic ointment (7 sources) Macrolide, Macrolide Antimicrobial Start : 04-28 End: 07-30 erythromycin (ROMYCIN) 5 mg/gram (0.5 %) ophthalmic ointment Use 1 application in the left eye daily at bedtime. Apply 1/2 inch ribbon per application 0 04/28/2021 07/30/2021 Discontinued (Course of therapy completed) Comment on above: Use 1 application in the left eye daily at bedtime. Apply 1/2 inch ribbon per application Hyaluronic Wv-Ehvtojumc-Wxyv (1 source) Start : 09-22 Hyaluronic Dw-Rliivkniv-Vbsl Active 1 APPLIC Topical Three times daily September 22, 2018 1:36pm hydroCHLOROthiazide 50 mg oral tablet (20 sources) Thiazide Diuretic Start : 06-21 End: 09-07 HYDROCHLOROTHIAZIDE 50 MG TAB Indications: HTN (hypertension) Take one(1) tablet daily 0 0 06/21/2009 Active Comment on above: Take one(1) tablet d aily levothyroxine sodium 0.112 mg oral tablet (20 sources) l-Thyroxine Start : 09-07 take 88 ug by mouth once daily in the morning Levothyroxine Active 88 MCG PO Every morning September 08, 2023 11:02am Start: 11-18-2021 take 88 ug by mouth once daily Synthroid 88 mcg, Oral, Daily Start Date: 11/18/21 Status: Ordered Start: 11-29-2020 take 1 tablet by jose th once daily levothyroxine (SYNTHROID) 88 mcg tablet Take 88 mcg by mouth once daily. 11/29/2020 Active Start: 11-07-2016 End: 09-08-2023 take 112 ug by mouth once daily in the morning Levothyroxine Active 112 MCG Oral Every morning November 07, 2016 1:05pm Synthroid 88 MCG 1 tablet every morning on an empty stomach Orally Once a day for 30 day(s) Active Synthroid 112 MC G 1 tablet every morning on an empty stomach Orally Once a day for 30 day(s) Active Comment on above: Take 88 mcg by mouth once daily. Loperamide (6 sources) Opioid Agonist Imodium A-D Acti ve losartan potassium 100 mg oral tablet (15 sources) Angiotensin 2 Receptor Yoselyn Start: 09-08-2023 take 100 mg by mouth once daily Losartan Active 100 MG PO Daily September 08, 2023 12:00am Start: 01-29-2023 End: 01-29-2024 losartan (COZAAR) 50 mg tabl et Take 50 mg by mouth. 01/29/2023 01/29/2024 Active Comment on above: Take 50 mg by mouth. meloxicam 15 mg oral tablet (20 sources) Nonsteroidal Anti-inflammatory Drug Start: 11-08-19 End: 10-14-19 take 1 tablet by mouth once daily at mealtime for pain meloxicam (MOBIC) 15 mg tablet Indications: Multiple joint pain , Secondary osteoarthritis of multiple sites TAKE 1 TABLET BY MOUTH DAILY WITH FOOD FOR PAIN 90 tablet 3 10/14/2023 Active take 1 tablet by jose th every twenty-four hours Mobic 7.5 MG 1 tablet Orally Once a day for 30 day(s) Active Comment on above: TAKE 1 TABLET DAILY WITH FOOD FOR PAIN omeprazole 40 mg delayed release oral capsule (20 sources) Proton Pump Inhibitor Start: 11-12-2020 take 1 capsule by mouth once daily omeprazole (PRILOSEC) 40 mg capsule Take 40 mg by mouth once daily. 11/12/2020 Active Start: 11-05-2020 take 40 mg by mouth once daily Prilosec 40 mg, Oral, Daily, Control of stomach acid Start Date: 11/05/20 Status: Ordered Start: 11-07-2016 End: 07-22-2021 Omeprazole Magnesium 20 mg t ablet Omeprazole Magnesium Active 20 MG Oral Every morning November 07, 2016 1:05pm 0 11/07/2016 07/22/2021 Discontinued Comment on above: Take 40 mg by mouth once daily. Omeprazole Magnesium Active 20 MG Oral Every morning November 07, 2016 1:05pm phenylephrine hydrochloride 25 mg/ml ophthalmic solution (3 sources) alpha-1 Adrenergic Agonist Start: 06-03-2023 End: 06-03-2023 PHENYLephrine 2.5 % 1 Drop (AK-DILATE, CHEY-SYNEPHRINE) Start: 04-29-2023 End: 04-29-2023 PHENYLephrine 2.5 % 1 Drop ( AK-DILATE, CHEY-SYNEPHRINE) Start: 01-27-2022 End: 01-28-2022 PHENYLephrine 2.5 % 1 Drop ( AK-DILATE, CHEY-SYNEPHRINE) prednisoLONE acetate 10 mg/ml ophthalmic suspension (20 sources) Corticosteroid Start: 09-02-2023 prednisoLONE a cetate (PRED FORTE) 1 % ophthalmic suspension Use 1 Drop in both eyes once daily. 5 mL 3 09/02/2023 Active Start: 08-31-2022 End: 09-02-2023 prednisoLONE acetate (PRED F ORTE) 1 % ophthalmic suspension Use 1 Drop in both eyes every other day. 5 mL 11 08/31/2022 09/02/2023 Discontinued Start: 10-30-2021 End: 08-31-2022 prednisoLONE acetate (PRED F ORTE) 1 % ophthalmic suspension Use 1 Drop in both eyes every other day. 5 mL 11 08/31/2022 Active Start: 04-28-2021 prednisoLONE a cetate (PRED FORTE, ECONOPRED PLUS) 1 % ophthalmic suspension use one drop once daily right eye and four times daily left eye 10 mL 5 04/28/2021 Active Start: 11-12-2020 take 1 drop(s) into the eye(s) once daily Prednisolone Acetate Active 1 DROPS EYE-BOTH Daily November 12, 2020 12:00am Start: 11-08-2020 prednisoLONE O pth acetate 1% Susp 5 mL 1 drop(s), Eye-Right, TID, Refill(s) 0, Other (see comment) Start Date: 11/08/20 Status: Ordered Comment on above: use one drop once da ronal right eye and four times daily left eye PLACE 1 DROP INTO RI GHT EYE EVERY OTHER DAY AND 1 DROP IN THE LEFT EYE 2 TIMES DAILY Use 1 Drop in both e yes every other day. Probiotic (4 sources) Probiotic Active tropicamide 10 mg/ml ophthalmic solution (3 sources) Anticholinergic Start: 06-03-2023 End: 06-03-2023 tropicamide 1 % 1 Drop (MYDRIACYL) Start: 04-29-2023 End: 04-29-2023 tropicamide 1 % 1 Drop (MYDR IACYL) Start: 01-27-2022 End: 01-28-2022 tropicamide 1 % 1 Drop (MYDR IACYL) 24 hr verapamil hydrochloride 240 mg extended release oral capsule (20 sources) Calcium Channel Yoselyn Start: 11-23-2022 take 1 capsule by mouth once daily in the evening verapamil ER (Veralan PM) 240 mg 24 hr capsule Take 1 capsule (240 mg) by mouth once daily. 0 11/23/2022 Active Start: 02-23-2019 End: 09-08-2023 verapamil SR (CALAN SR, ISOP TIN SR) 240 mg CR tablet Take 240 mg by mouth. 11/05/2020 Active Start: 11-07-2016 End: 02-23-2019 take 80 mg by mouth three times daily Verapamil Active 80 MG Oral Three times daily November 07, 2016 1:05pm Comment on above: Take 240 mg by mouth . vitamin B12 (20 sources) Vitamin B12 Start: 11-05-2020 take 200 ug by mouth once daily Vitamin B-12 200 mcg, Oral, Daily, Prophylaxis Start Date: 11/05/20 Status: Ordered take 3 tablets by mouth once will ly cyanocobalamin (VITAMIN B-12) 1,000 mcg tab Take 3,000 mcg by mouth once daily. Active Vitamin B12 Acti ve Comment on above: Take 3,000 mcg by [facility] once daily. Vitamin D (1 source) Start: 11-05-2020 Vitamin D 4000 IU, Oral, Daily, Prophylaxis Start Date: 11/05/20 Status: Ordered Vitamin D 2000 UNIT (6 sources) take 3 tablets by mouth once Vitamin D 2000 UNIT 3 tablet Orally Active Completed/Discontinued Medications Medication Drug Class(es) Dates Sig (Normalized) Sig (Original) acetaminophen 325 mg / HYDROcodone bitartrate 5 mg oral tablet (3 sources) Opioid Agonist Start: 09-06-2018 End: 11-01-2018 take 1 tablet by mouth every four to six hours Hydrocodone-Acetami nophen ([place]) 5-325 mg tablet Discontinued 1 - 2 TAB PO EVERY 4-6 HOURS 14 September 06, 2018 November 01, 2018 2:18pm Start: 08-02-2018 End: 08-15-2018 take 1 tablet by mouth every four to six hours Hydrocodone-Acetaminophen ([place]) 5-325 mg tablet Discontinued 1 - 2 TAB PO EVERY 4-6 HOURS 10 August 02, 2018 August 15, 2018 9:09am Start: 11-07-2016 End: 07-26-2018 take 1 tablet by mouth every four hours Hydrocodone-Acetaminophen ([place]) 5-325 mg tablet Discontinued 1 TAB PO Q4H 14 November 07, 2016 July 26, 2018 11:32am alendronic acid 70 mg oral tablet (19 sources) Bisphosphonate Start: 04-15-2020 alendronate (F OSAMAX) 70 mg tablet Indications: Osteopenia of multiple sites TAKE 1 TABLET ONCE A WEEK ON AN EMPTY STOMACH WITH FULL GLASS OF WATER. NO FOOD/DRINK OR LYING DOWN FOR 45 TO 60 MINUTES AFTER MEDICATION 12 tablet 3 05/19/2021 Active Start: 12-08-2018 End: 09-02-2022 take 70 mg by mouth every week Alendronate Active 70 M G Oral every week December 08, 2018 2:53pm Comment on above: Take 1tab by mouth o nce a week on empty stomach with full glass of water. No food/drink or lying down for 45-60minutes after med. TAKE 1 TABLET ONCE A WEEK ON AN EMPTY STOMACH WITH FULL GLASS OF WATER. NO FOOD/DRINK OR LYING DOWN FOR 45 TO 60 MINUTES AFTER MEDICATION amoxicillin 500 mg oral tablet (7 sources) Penicillin-class Antibacterial Start: 08-13-2021 End: 03-03-2022 Amoxicillin 500 mg tablet Indications: Status post bilateral knee replacements four tabs one hour prior to dental procedure and two tabs six hours after the dental procedure 12 tablet 0 08/13/2021 03/03/2022 Discontinued Start: 06-04-2021 End: 07-22-2021 take 4 capsules by mouth every hour, then take 2 capsules by mouth every six hours amoxicillin (POLYMOX, AMOXIL) 500 mg capsule TAKE 4 CAPSULES BY MOUTH 1 HOUR PRIOR TO APPOINTMENT, AND 2 CAPSULES 6 HOURS LATER 0 06/04/2021 07/22/2021 Discontinued Start: 02-21-2019 End: 02-23-2019 take 875 mg by mouth twice daily Amoxicillin Discontin ued 875 MG PO Twice daily February 21, 2019 1:00am February 23, 2019 2:33pm Comment on above: TAKE 4 CAPSULES BY M OUTH 1 HOUR PRIOR TO APPOINTMENT, AND 2 CAPSULES 6 HOURS LATER four tabs one hour p rior to dental procedure and two tabs six hours after the dental procedure azithromycin 250 mg oral tablet (1 source) Macrolide Antimicrobial Start: 02-23-19 End: 04-14-19 take 1 dose by mouth every twenty-four hours in the morning Azithromycin Discontinued 500 MG PO Q24H 4 2 February 23, 2019 1:00am April 14, 2019 4:10pm next dose 02/24/19 am bevacizumab (Jase's) 1.25 mg intravitreal syringe (AVASTIN) (16 sources) Start: 09-16-19 End: 09-16-19 bevacizumab (Jase's) 1.25 mg intravitreal syringe (AVASTIN) Start: 08-05-2023 End: 08-05-2023 bevacizumab (Jase's) 1.25 mg intravitreal syringe (AVASTIN) Start: 07-01-2023 End: 07-01-2023 bevacizumab (Jase's) 1.25 mg intravitreal syringe (AVASTIN) Start: 06-03-2023 End: 06-03-2023 bevacizumab (Jase's) 1.25 mg intravitreal syringe (AVASTIN) ciprofloxacin 3 mg/ml ophthalmic solution (10 sources) Quinolone Antimicrobial Start: 02-23-2022 End: 08-31-2022 take 1 drop(s) into the eye(s) four times daily ciprofloxacin HCl (CILOXAN) 0.3 % ophthalmic solution Use 1 Drop in the right eye four times daily. 0 02/23/2022 08/31/2022 Discontinued Start: 04-28-2021 End: 07-22-2021 take 1 drop(s) into the eye(s) four times daily ciprofloxacin HCl (CILOXAN) 0.3 % ophthalmic solution Use 1 Drop in the left eye four times daily. 0 04/28/2021 07/22/2021 Discontinued Comment on above: Use 1 Drop in the le ft eye four times daily. Use 1 Drop in the ri ght eye four times daily. 1 ml denosumab 60 mg/ml prefilled syringe (2 sources) RANK Ligand Inhibitor Start: End: denosumab 60 mg injection (PROLIA) ergocalciferol 1.25 mg oral capsule (5 sources) Provitamin D2 Compound Start: End: ergocalciferol 50,000 unit capsule (VITAMIN D2, DRISDOL) Indications: Vitamin D deficiency (take by mouth with food twice a week, ONE CAPSULE ON WEDNESDAY AND ONE ON WEDNESDAY) FOR A TOTAL OF 8 WEEKS. 16 capsule 0 03/08/2023 06/05/2023 Discontinued (Course of therapy completed) Comment on above: (take by mouth with food twice a week, ONE CAPSULE ON WEDNESDAY AND ONE ON WEDNESDAY) FOR A TOTAL OF 8 WEEKS. Hyaluronic Km-Akskgfyyh-Tygp (Radiaplexrx) Gel (1 source) Start: End: Hyaluronic Jl-Qufiskfgn-Esnf (Radiaplexrx) Gel Discontinued 1 APPLIC TOPICAL Three times daily September 22, 2018 12:00am February 21, 2019 1:47pm hydroxychloroquine sulfate 200 mg oral tablet (8 sources) Antimalarial, Antirheumatic Agent Start: 017 End: hydrOXYchloroQUINE (PLAQUENIL) 200 mg tablet Hydroxychloroquine Active 200 MG Oral Twice daily November 07, 2016 1:05pm 0 11/07/2016 07/22/2021 Discontinued Comment on above: Hydroxychloroquine A ctive 200 MG Oral Twice daily November 07, 2016 1:05pm ibuprofen 600 mg oral tablet (2 sources) Nonsteroidal Anti-inflammatory Drug Start: End: Ibuprofen Discontinued 600 MG PO EVERY 4-6 HOURS 27 08September 06, 2018 12:00am November 01, 2018 2:18pm do not exceed 4 doses in a 24 hour period Start: 08-02-2018 End: 08-15-2018 Ibuprofen Discontinued 600 M G PO EVERY 4-6 HOURS 27 08August 02, 2018 12:00am August 15, 2018 9:09am do not exceed 4 doses in a 24 hour period ketorolac tromethamine 5 mg/ml ophthalmic solution (6 sources) Nonsteroidal Anti-inflammatory Drug, Cyclooxygenase Inhibitor Start: 04-28-2021 End: 07-22-2021 take 1 drop(s) into the eye(s) four times daily keTORolac (ACULAR) 0.5 % ophthalmic solution Use 1 Drop in the left eye four times daily. 5 mL 0 04/28/2021 07/22/2021 Discontinued Comment on above: Use 1 Drop in the le ft eye four times daily. methylPREDNISolone 16 mg oral tablet (1 source) Corticosteroid Start: 02-23-2019 End: 12-11-2019 take 1 dose by mouth once daily in the morning Methylprednisolone Discontinued 32 MG PO Every morning 11 12February 23, 2019 1:00am December 11, 2019 4:08pm next dose 02/24/19 am Omeprazole Magnesium (Prilosec Otc) 20 mg Tablet,Delayed Release (Dr/Ec) (1 source) Start: 11-07-2016 End: 11-12-2020 take 1 tablet by mouth once daily in the morning Omeprazole Magnesium (Prilosec Otc) 20 mg Tablet,Delayed Release (Dr/Ec) Discontinued 20 MG PO Every morning November 07, 2016 12:00am November 12, 2020 2:25pm proparacaine hydrochloride 5 mg/ml ophthalmic solution (3 sources) Local Anesthetic Start: 04-29-2023 End: 04-29-2023 proparacaine 0.5 % 1 Drop (ALCAINE) Start: 01-27-2022 End: 01-28-2022 proparacaine 0.5 % 1 Drop (A LCAINE) Start: 05-06-2021 End: 05-06-2021 proparacaine 0.5 % 1 Drop (A LCAINE) sulfamethoxazole 800 mg / trimethoprim 160 mg oral tablet (1 source) Dihydrofolate Reductase Inhibitor Antibacterial, Sulfonamide Antimicrobial Start: 11-07-2016 End: 07-26-2018 take 1 tablet by mouth every twelve hours Sulfamethoxazole-Trimethoprim (Bactrim Ds) 800-160 mg tablet Discontinued 1 TAB PO Q12H November 07, 2016 12:00am July 26, 2018 11:35am Problems Active Problems Problem Classification Problem Date Documented Date Episodic/Chronic Abdominal pain (9 sources) Abdominal pain; Translations: [Unspecified abdominal pain] Onset: 2 Episodic Acquired foot deformities (20 sources) Hammer toe; Translations: [Other hammer toe(s) (acquired), right foot] Onset: 7 03-17-2016 Chronic Acute and chronic tonsillitis (1 source) Amygdalolith; Translations: [Other chronic diseases of tonsils and adenoids] Onset: 3 08-13-2022 Chronic Asthma (20 sources) Mild intermittent asthma; Translations: [Mild intermittent asthma, uncomplicated] Onset: 9 04-14-2021 Chronic Cancer of breast (6 sources) Intraductal carcinoma in situ of breast; 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] Onset: 9 08-13-2022 Chronic Cardiac dysrhythmias (3 sources) Supraventricular tachycardia; Translations: [SVT (supraventricular tachycardia)] Onset: 3 12-08-2022 Chronic Cataract (20 sources) Pseudophakia; Translations: [Presence of intraocular lens] Onset: 2 Chronic Complications of surgical procedures or medical care (1 source) Cataract fragments in the eye post cataract surgery; Translations: [Cataract (lens) fragments in eye following cataract surgery, left eye] Episodic Deficiency and other anemia (1 source) Anemia in other chronic diseases classified elsewhere; Translations: [Anemia of chronic disease] Onset: 4 Chronic Disorders of lipid metabolism (1 source) Hyperlipidemia; Translations: [Hyperlipidemia, unspecified] Onset: 3 08-13-2022 Chronic Disorders of teeth and jaw (1 source) Other specified disorders of teeth and supporting structures; Translations: [OTH SPEC DISORDERS TEETH SUPP STRCT] Onset: 2 Episodic Diverticulosis and diverticulitis (8 sources) Diverticular disease of colon; Translations: [Diverticulosis of intestine, part unspecified, without perforation or abscess without bleeding] Onset: 1 Resolved: 1 Chronic E Codes: Fall (1 source) Fall on same level from slipping, tripping and stumbling without subsequent striking against object, initial encounter; Translations: [FALL SAME LVL SLIP NO STRK OBJ INIT] Onset: 2 Episodic Esophageal disorders (20 sources) Gastroesophageal reflux disease; Translations: [Gastro-esophageal reflux disease without esophagitis] Onset: 3 08-27-2020 Chronic Essential hypertension (20 sources) Essential hypertension; Translations: [Essential (primary) hypertension] Onset: 7 06-26-2016 Chronic Gastritis and duodenitis (7 sources) Gastritis; Translations: [Gastritis, unspecified, without bleeding] Onset: 1 Resolved: 1 Episodic Gout and other crystal arthropathies (20 sources) 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, of multiple sites; Translations: [Other chondrocalcinosis, multiple sites] Onset: 5 07-22-2017 Chronic Headache; including migraine (1 source) Migraine 11-08-2020 Chronic Inflammatory conditions of male genital organs (1 source) Epididymitis 11-18-2021 Episodic Menopausal disorders (1 source) Atrophic vaginitis; Translations: [Postmenopausal atrophic vaginitis] Onset: 3 08-13-2022 Chronic Mycoses (1 source) Onychomycosis of toenails; Translations: [Tinea unguium] Episodic Nausea and vomiting (1 source) Nausea with vomiting, unspecified; Translations: [NAUSEA WITH VOMITING UNSPECIFIED] Onset: 2 Episodic Nonmalignant breast conditions (3 sources) Mammographic microcalcification found on diagnostic imaging of breast; Translations: [Mammographic microcalcification of right breast] 10-18-2020 Episodic Nutritional deficiencies (20 sources) Vitamin D deficiency; Translations: [Vitamin D deficiency, unspecified] Onset: 2 Resolved: 3 09-28-2011 Chronic Osteoarthritis (20 sources) Degenerative joint disease involving multiple joints; Translations: [Secondary multiple arthritis] Onset: 5 04-17-2014 Chronic Osteoporosis (2 sources) Senile osteoporosis; Translations: [Age-related osteoporosis without current pathological fracture] Onset: 4 09-03-2023 Chronic Other aftercare (2 sources) Encounter for therapeutic drug level monitoring; Translations: [Encounter for therapeutic drug monitoring] 09-08-2023 Episodic Other aftercare (1 source) 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; Translations: [OTH ASSISTED CURRENT DRUG THERAPY] Onset: 2 Episodic Other diseases of veins and lymphatics (1 source) Lymphedema; Translations: [Lymphedema, not elsewhere classified] Onset: 3 08-13-2022 Chronic Other eye disorders (7 sources) History of Descemet's membrane endothelial keratoplasty; 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 Other eye disorders (1 source) Tear film insufficiency; Translations: [Dry eye syndrome of bilateral lacrimal glands] 06-03-2023 Episodic Other gastrointestinal disorders (5 sources) Irritable bowel syndrome; Translations: [Mixed irritable bowel syndrome] Chronic Other gastrointestinal disorders (2 sources) Mixed irritable bowel syndrome Chronic Other gastrointestinal disorders (1 source) Irritable bowel syndrome with diarrhea; Translations: [Irritable bowel syndrome with diarrhea] Onset: 3 08-13-2022 Chronic Other gastrointestinal disorders (5 sources) Constipation alternates with diarrhea; Translations: [Other specified symptoms and signs involving the digestive system and abdomen] Episodic Other gastrointestinal disorders (5 sources) Diarrhea; Translations: [Diarrhea, unspecified] Episodic Other non-traumatic joint disorders (20 sources) Multiple joint pain; Translations: [Pain in unspecified joint] Onset: 3 02-10-2012 Episodic Other nutritional; endocrine; and metabolic disorders (2 sources) Overweight; Translations: [Overweight] Onset: 3 Episodic Other upper respiratory infections (2 sources) Chronic sinusitis; Translations: [Chronic sinusitis, unspecified] Onset: 3 08-13-2022 Chronic Pneumonia (except that caused by tuberculosis or sexually transmitted disease) (1 source) Pneumonia; Translations: [Pneumonia, unspecified organism] 02-21-2019 Episodic Prolapse of female genital organs (2 sources) Disorder of rectum; Translations: [Rectocele] Onset: 3 08-13-2022 Chronic Residual codes; unclassified (1 source) Personal history of other drug therapy; Translations: [Personal history of other drug therapy] 09-03-2023 Episodic Retinal detachments; defects; vascular occlusion; and retinopathy (11 sources) Retinal edema; 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] Chronic Skin and subcutaneous tissue infections (2 sources) Abscess; Translations: [Cutaneous abscess, unspecified] 11-09-2016 Episodic Skull and face fractures (1 source) Fracture of tooth (traumatic), initial encounter for closed fracture; Translations: [FX TOOTH TRAUMAT INIT ENC CLOS FX] Onset: 2 Episodic Spondylosis; intervertebral disc disorders; other back problems (20 sources) Facet joint pain; Translations: [Other spondylosis, site unspecified] Onset: 9 12-14-2008 Chronic Thyroid disorders (20 sources) Hypothyroidism; Translations: [Hypothyroidism, unspecified] Onset: 9 06-26-2016 Chronic Unclassified (1 source) Patient encounter status; Translations: [Encounter for screening for osteoporosis] Unclassified (1 source) Drug therapy finding; Translations: [Encounter for monitoring warfarin therapy] Unclassified (1 source) Supraventricular tachycardia, unspecified; Translations: [Supraventricular tachycardia, unspecified] Onset: 3 Past or Other Problems Problem Classification Problem Date Documented Da te Episodic/Chronic Anxiety disorders (1 source) Anxiety; Translations: [Anxiety disorder, unspecified] Onset: 3 Resolved: 3 01-28-2023 Chronic Calculus of urinary tract (9 sources) Kidney stone; Translations: [Calculus of kidney] Onset: 2 Episodic Cancer of breast (20 sources) History of malignant neoplasm of breast; Translations: [Personal history of malignant neoplasm of breast] Onset: 1 08-27-2020 Episodic Conditions associated with dizziness or vertigo (5 sources) Vertigo; Translations: [Dizziness and giddiness] Onset: 3 12-08-2022 Episodic Immunizations and screening for infectious disease (20 sources) Anti-nuclear factor positive; Translations: [Other specified abnormal immunological findings in serum] Onset: 2 Resolved: 7 06-02-2016 Episodic Malaise and fatigue (20 sources) Fatigue; Translations: [Other fatigue] Onset: 2 11-25-2011 Episodic Mood disorders (1 source) Mood disorders Onset: 3 01-29-2023 Neoplasms of unspecified nature or uncertain behavior (1 source) Estrogen receptor positive tumor; Translations: [Neoplasm of unspecified behavior of unspecified site] Onset: 9 08-13-2022 Episodic Nonspecific chest pain (1 source) Other chest pain; Translations: [Other chest pain] Onset: 4 Episodic Other acquired deformities (20 sources) Deformity of foot; Translations: [Unspecified acquired deformity of right lower leg] Onset: 7 03-17-2016 Episodic Other aftercare (20 sources) Patient encounter status; Translations: [Other [facility] (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 therapy] Onset: 3 02-10-2012 Episodic Other aftercare (20 sources) Drug therapy finding; Translations: [Other [facility] (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 therapy] Onset: 7 06-15-2016 Episodic Other aftercare (4 sources) Long-term current use of drug therapy; Translations: [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] Onset: 3 02-10-2012 Episodic Other bone disease and musculoskeletal deformities (20 sources) Osteopenia; Translations: [Other specified disorders of bone density and structure, multiple sites] Onset: 9 12-02-2018 Episodic Other connective tissue disease (20 sources) Bursitis of right hip; Translations: [Other bursitis of hip, right hip] Onset: 3 02-10-2012 Episodic Other connective tissue disease (20 sources) Pain of toe of right foot; Translations: [Pain in right toe(s)] Onset: 5 08-22-2014 Episodic Other eye disorders (20 sources) Fuchs' corneal dystrophy; Translations: [Fuchs' corneal dystrophy of left eye] Onset: 2 04-14-2021 Episodic Other eye disorders (20 sources) Epithelial basement membrane dystrophy; 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] Onset: 2 Episodic Other gastrointestinal disorders (1 source) Other specified symptoms and signs involving the digestive system and abdomen Onset: 2 Resolved: 2 Episodic Other gastrointestinal disorders (1 source) Altered bowel function; Translations: [Change in bowel habit] Onset: 3 08-13-2022 Episodic Other hematologic conditions (1 source) Elevated erythrocyte sedimentation rate; Translations: [Elevated sed rate] Onset: 4 Episodic Other nervous system disorders (1 source) Taste sense altered; Translations: [Parageusia] Onset: 3 08-13-2022 Episodic Other nervous system disorders (1 source) Impairment of balance; Translations: [Other abnormalities of gait and mobility] Onset: 3 08-13-2022 Episodic Other non-traumatic joint disorders (20 sources) Hip pain; Translations: [Pain in right hip] Onset: 4 11-22-2013 Episodic Other non-traumatic joint disorders (20 sources) Multiple stiff joints; Translations: [Stiffness of unspecified joint, not elsewhere classified] Onset: 8 07-22-2017 Episodic Other nutritional; endocrine; and metabolic disorders (3 sources) Body mass index 25-29 - overweight; Translations: [Overweight] Onset: 3 12-08-2022 Episodic Other screening for suspected conditions (not mental disorders or infectious disease) (20 sources) Encounter for screening for osteoporosis; Translations: [Elevated C-reactive protein] Onset: 6 02-25-2015 Episodic Residual codes; unclassified (20 sources) Family history of lupus erythematosus; Translations: [Family history of diseases of the skin and subcutaneous tissue] Onset: 2 11-25-2011 Episodic Residual codes; unclassified (20 sources) Edema of lower leg ; Translations: [Localized edema] Onset: 1 08-27-2020 Episodic Residual codes; unclassified (1 source) Personal history of other medical treatment; Translations: [Personal history of other medical treatment] Onset: 4 Episodic Spondylosis; intervertebral disc disorders; other back problems (5 sources) Dorsalgia, unspecified; Translations: [Pain in thoracic spine] Onset: 9 Episodic Superficial injury; contusion (20 sources) Contusion, knee and lower leg; Translations: [Contusion of unspecified knee, initial encounter] Onset: 8 04-19-2020 Episodic Unclassified (1 source) Onset: 3 12-08-2022 Unclassified (1 source) Supraventricular tachycardia, unspecified; Translations: [Supraventricular tachycardia, unspecified] Onset: 3 Results Test Name Value Interpretation Reference Range [facility] AVASTIN (BEVACIZUMAB) 1.25MG INTRAVITREAL INJECTION OD (RIGHT EYE)on 09-16-2023 [facility] AVASTIN (BEVACIZUMAB) 1.25MG INTRAVITREAL INJECTION OS (LEFT EYE)on 09-16-2023 [facility] OCT MACULA CIRRUS OU (BOTH E YES)on 09-16-2023 [facility] Radiology Study observation (narrative) [facility] CNNURSEon 09-03-2023 CNNURSE Nurse Visit (TIFFANY) FANTASMA LEWIS ([id number]) 1940 F Date Time Provider Department 09/03/23 1:30 PM NURSE LUCRECIA [facility] NALINI ALLEN During your visit today, we recorded the following information about you: Referring Provider: CHALO MENJIVAR [[id number]] Allergies As of Date: 09/03/2023 Noted Allergy Reaction PLAQUENIL (HYDROXYCHLOROQUINE) 06/28/2020 14 - Other: See Comments Comments: Eye changes on exam 06/2020 (unable to clarify if changes from macular degeneration) Date Reviewed: 08/05/2023 Reviewed by: Brando Shields MD - Fully Assessed Reason for Visit: Allied Health Visit [5] Cmt: Prolia injection Primary Visit Diagnosis:Senile osteoporosis [M81.0] Other Visit Diagnosis:Personal history of other drug therapy [Z92.29] Prescriptions as of 09/03/2023 - prednisoLONE acetate (PRED FORTE) 1 % ophthalmic suspension Use 1 Drop in both eyes once daily. - DULoxetine (CYMBALTA) 60 mg capsule take 1 capsule by mouth daily - chlorthalidone (HYGROTON) 25 mg tablet Take 25 mg by mouth every morning. - losartan (COZAAR) 50 mg tablet Take 50 mg by mouth. - meloxicam (MOBIC) 15 mg tablet TAKE 1 TABLET DAILY WITH FOOD FOR PAIN - Clindamycin Phosphate 1 % APPLY TO AFFECTED AREAS TWICE DAILY FOR FLARES - levothyroxine (SYNTHROID) 88 mcg tablet Take 88 mcg by mouth once daily. - omeprazole (PRILOSEC) 40 mg capsule Take 40 mg by mouth once daily. - verapamil SR (CALAN SR, ISOPTIN SR) 240 mg CR tablet Take 240 mg by mouth. - anastrozole (ARIMIDEX) 1 mg tablet Take 1 mg by mouth once daily. - albuterol HFA (PROVENTIL HFA, VENTOLIN HFA) 90 mcg/actuation inhaler Inhale 1 Puff as instructed every 4 hours as needed for Wheezing/Shortness of Breath. - cyanocobalamin (VITAMIN B-12) 1,000 mcg tab Take 3,000 mcg by mouth once daily. - acetaminophen (TYLENOL) 500 mg tablet Take 2 tablets by mouth three times daily. - cholecalciferol (VITAMIN D3) 2,000 unit tablet Take 2 tablets by mouth once daily. - HYDROCHLOROTHIAZIDE 50 MG TAB Take one(1) tablet daily Meds Comments as of 06/02/2016: Was taking Keflex/ had kidney stones. Problem List As Of Date 09/03/2023 Noted Resolved Facet Syndrome [M47.899] 12/14/2008 Postlaminectomy Syndrome, Lumbar Region [M96.1] 12/14/2008 Hypothyroidism [E03.9] Vitamin D deficiency [E55.9] 09/28/2011 LETICIA positive [R76.8] 11/25/2011 06/02/2016 Fatigue [R53.83] 11/25/2011 Family history of lupus erythematosus [Z84.0] 11/25/2011 Multiple joint pain [M25.50] 02/10/2012 Encounter for long-term (current) use of medica*02/10/2012 Bursitis of hip, right [M70.71] 02/10/2012 Hip pain, bilateral [M25.551, M25.552] 11/22/2013 Secondary osteoarthritis of multiple sites [M15*04/17/2014 Chondrocalcinosis due to dicalcium phosphate cr*08/22/2014 Pain in toe of right foot [M79.674] 08/22/2014 Elevated C-reactive protein (CRP) [R79.82] 02/25/2015 Status post bilateral knee replacements [Z96.65*09/03/2015 DJD (degenerative joint disease), ankle and chelsi*03/17/2016 Foot deformity, bilateral [M21.961, M21.962] 03/17/2016 Hammer toes, bilateral [M20.41, M20.42] 03/17/2016 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 06/02/2016 Primary osteoarthritis of left knee [M17.12] 04/19/2016 Essential hypertension [I10] 04/22/2016 Pseudogout involving multiple joints [M11.89] 06/15/2016 Long-term use of Plaquenil [Z79.899] 06/15/2016 Inflammatory arthritis [M19.90] 12/17/2016 Primary osteoarthritis of both knees [M17.0] 05/04/2017 Contusion, knee and lower leg, unspecified late*05/04/2017 Joint stiffness of multiple sites [M25.60] 07/22/2017 Osteopenia of multiple sites [M85.89] 12/02/2018 GERD (gastroesophageal reflux disease) [K21.9] History of breast cancer [Z85.3] 08/27/2020 Lower leg edema [R60.0] 08/27/2020 Pre-operative examination [Z01.818] 04/14/2021 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] 04/14/2021 Mild intermittent asthma without complication [*04/14/2021 Pseudophakia [Z96.1] 01/27/2022 PCO (posterior capsular opacification), bilater*01/27/2022 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 Encounter Status:Closed by FELICIA PERRY on 09/03/23 Normal [facility] AVASTIN (BEVACIZUMAB) 1.25MG INTRAVITREAL INJECTION OD (RIGHT EYE)on 08-05-2023 [facility] AVASTIN (BEVACIZUMAB) 1.25MG INTRAVITREAL INJECTION OS (LEFT EYE)on 08-05-2023 [facility] OCT MACULA CIRRUS OU (BOTH E YES)on 08-05-2023 [facility] Radiology Study observation (narrative) Taylor Yates 07-17-2023 BARRIEN Telephone (TIFFANY) FANTASMA LEWIS ([id number]) 1940 F Date Time Provider Department 07/17/23 CHALO MENJIVAR During your visit today, we recorded the following information about you: Chalo Menjivar MD 07/17/2023 1:33 PM Signed Please Call patient if MyChart note not read to review results/released to My Chart if tests completed at [facility]: Normal vitamin D will monitor. Take over the counter vitamin D 2000 International Units daily with food. Happy to further review and discuss at follow up visit. Continue rest of treatment plan per instructions at last office visit. Thank you. 07/13/23 normal vitamin D 46.2; 06/03/23 eye exam age related macular degeneration treated with avastin, fuch's dystrophy, pseudophakia, dry eyes syndrome. 06/03/23 normal vitamin D 60.7; 03/05/23 low vitamin D 28.1;high glucose 137;normal cbc, cmp, esr 5, crp 0.4; Carly Butts MA 07/19/2023 8:06 AM Signed Pt was notified via . Allergies As of Date: 07/17/2023 Noted Allergy Reaction PLAQUENIL (HYDROXYCHLOROQUINE) 06/28/2020 14 - Other: See Comments Comments: Eye changes on exam 06/2020 (unable to clarify if changes from macular degeneration) Date Reviewed: 07/01/2023 Reviewed by: Brando Shields MD - Fully Assessed Reason for Visit: Results [95] Prescriptions as of 07/19/2023 - DULoxetine (CYMBALTA) 60 mg capsule take 1 capsule by mouth daily - chlorthalidone (HYGROTON) 25 mg tablet Take 25 mg by mouth every morning. - losartan (COZAAR) 50 mg tablet Take 50 mg by mouth. - meloxicam (MOBIC) 15 mg tablet TAKE 1 TABLET DAILY WITH FOOD FOR PAIN - prednisoLONE acetate (PRED FORTE) 1 % ophthalmic suspension Use 1 Drop in both eyes every other day. - Clindamycin Phosphate 1 % APPLY TO AFFECTED AREAS TWICE DAILY FOR FLARES - levothyroxine (SYNTHROID) 88 mcg tablet Take 88 mcg by mouth once daily. - omeprazole (PRILOSEC) 40 mg capsule Take 40 mg by mouth once daily. - verapamil SR (CALAN SR, ISOPTIN SR) 240 mg CR tablet Take 240 mg by mouth. - anastrozole (ARIMIDEX) 1 mg tablet Take 1 mg by mouth once daily. - albuterol HFA (PROVENTIL HFA, VENTOLIN HFA) 90 mcg/actuation inhaler Inhale 1 Puff as instructed every 4 hours as needed for Wheezing/Shortness of Breath. - cyanocobalamin (VITAMIN B-12) 1,000 mcg tab Take 3,000 mcg by mouth once daily. - acetaminophen (TYLENOL) 500 mg tablet Take 2 tablets by mouth three times daily. - cholecalciferol (VITAMIN D3) 2,000 unit tablet Take 2 tablets by mouth once daily. - HYDROCHLOROTHIAZIDE 50 MG TAB Take one(1) tablet daily Meds Comments as of 06/02/2016: Was taking Keflex/ had kidney stones. Problem List As Of Date 07/17/2023 Noted Resolved Facet Syndrome [M47.899] 12/14/2008 Postlaminectomy Syndrome, Lumbar Region [M96.1] 12/14/2008 Hypothyroidism [E03.9] Vitamin D deficiency [E55.9] 09/28/2011 LETICIA positive [R76.8] 11/25/2011 06/02/2016 Fatigue [R53.83] 11/25/2011 Family history of lupus erythematosus [Z84.0] 11/25/2011 Multiple joint pain [M25.50] 02/10/2012 Encounter for long-term (current) use of medica*02/10/2012 Bursitis of hip, right [M70.71] 02/10/2012 Hip pain, bilateral [M25.551, M25.552] 11/22/2013 Secondary osteoarthritis of multiple sites [M15*04/17/2014 Chondrocalcinosis due to dicalcium phosphate cr*08/22/2014 Pain in toe of right foot [M79.674] 08/22/2014 Elevated C-reactive protein (CRP) [R79.82] 02/25/2015 Status post bilateral knee replacements [Z96.65*09/03/2015 DJD (degenerative joint disease), ankle and chelsi*03/17/2016 Foot deformity, bilateral [M21.961, M21.962] 03/17/2016 Hammer toes, bilateral [M20.41, M20.42] 03/17/2016 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 06/02/2016 Primary osteoarthritis of left knee [M17.12] 04/19/2016 Essential hypertension [I10] 04/22/2016 Pseudogout involving multiple joints [M11.89] 06/15/2016 Long-term use of Plaquenil [Z79.899] 06/15/2016 Inflammatory arthritis [M19.90] 12/17/2016 Primary osteoarthritis of both knees [M17.0] 05/04/2017 Contusion, knee and lower leg, unspecified late*05/04/2017 Joint stiffness of multiple sites [M25.60] 07/22/2017 Osteopenia of multiple sites [M85.89] 12/02/2018 GERD (gastroesophageal reflux disease) [K21.9] History of breast cancer [Z85.3] 08/27/2020 Lower leg edema [R60.0] 08/27/2020 Pre-operative examination [Z01.818] 04/14/2021 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] 04/14/2021 Mild intermittent asthma without complication [*04/14/2021 Pseudophakia [Z96.1] 01/27/2022 PCO (posterior capsular opacification), bilater*01/27/2022 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 Encounter Status:Closed by CARLY BUTTS on 07/19/23 Normal [facility] 25(OH)D3 Fernanda 2023 25-hydroxyvitamin D3 [Mass/Vol] 46.2 ng/mL Normal 31.0-80.0 [facility] Comment on above: Order Comment: Speci men Type: BLOOD SPECIMENOrdering Facility: [facility] Address: [address] [place] [address] Performed By: #### 1 [id number] ####[facility] LABCLIA [id number] [facility] [id number] [address] [place] AVASTIN (BEVACIZUMAB) 1.25MG INTRAVITREAL INJECTION OD (RIGHT EYE)on 07-01-2023 [facility] AVASTIN (BEVACIZUMAB) 1.25MG INTRAVITREAL INJECTION OS (LEFT EYE)on 07-01-2023 [facility] OCT MACULA CIRRUS OU (BOTH E YES)on 07-01-2023 [facility] Radiology Study observation (narrative) [facility] MM screening mammo BI w/CADo n 06-24-2023 MM screening mammo BI w/CAD [facility] [address] [place] [address] Mammography Report Signed Patient: Fantasma Lewis MR#: [id number] : 1940 Acct:[id number] Age/Sex: 83 / F ADM Date: 06/24/23 Loc: Room: Type: [facility] Attending Dr: Pooja Kirby MD Copies to: DO Prasanth Campbell MD Paul J Bruner, DO Rajender Ahuja, MD Ordering Provider: Prasanth Bai MD Date of Service: 06/24/23 MM/MM screening mammo BI w/CAD: yearly exam BILATERAL Screening Full Field digital mammogram with 3-D imaging. Full field digital CC and MLO imaging performed. CAD utilized. COMPARISON: 06/22/2022 HISTORY: Annual screening BREAST COMPOSITION: Scattered fibroglandular densities of the breast parenchyma identified BREAST CALCIFICATIONS: Benign calcifications present. VASCULAR CALCIFICATIONS: None ARCHITECTURAL DISTORTION: None BREAST NODULE: None AXILLARY LYMPH NODES: Normal POSTSURGICAL CHANGES: Similar right breast post therapy changes MM/MM screening mammo BI w/CAD IMPRESSION: No mammographic evidence of malignancy. Routine follow-up recommended in one year. RESULT CODE: 2 Benign Findings(s) DENSITY CODE: 2 (approximately 25-50% glandular) FOLLOW UP: 1YR THE FALSE-NEGATIVE RATE OF MAMMOGRAPHY IS APPROXIMATELY 10%. IMAGING OF A PALPABLE ABNORMALITY MUST BE BASED ON CLINICAL GROUNDS. PATIENT WAS ENTERED INTO A REMINDER SYSTEM WITH A TARGET DUE DATE FOR THE NEXT MAMMOGRAM. Impression dictated by: Nic Antoine M.D.06/24/2023 12:05 PM Dictation Location: [facility] Transcribed By: CRYSTAL 06/24/23 1205 Dictated By: Nic Antoine DO 06/24/231203 Signed By: 06/24/23 1205 Normal [facility] Trudy 06-05-2023 CNPN Telephone (RHEULN) FANTASMA LEWIS ([id number]) 1940 F Date Time Provider Department 06/05/23 CHALO MENJIVAR During your visit today, we recorded the following information about you: Chalo Menjivar MD 06/05/2023 9:18 PM Signed Please Call patient if [employer] note not read to review results/released to My Chart if tests completed at [facility]: Improved/ normal vitamin D will monitor. Take over the counter vitamin D 2000 International Units daily with food. Happy to further review and discuss at follow up visit. Continue rest of treatment plan per instructions at last office visit. Thank you. 06/03/23 eye exam age related macular degeneration treated with avastin, fuch's dystrophy, pseudophakia, dry eyes syndrome. 06/03/23 normal vitamin D 60.7; 03/05/23 low vitamin D 28.1;high glucose 137;normal cbc, cmp, esr 5, crp 0.4; Erick Arredondo MA 06/07/2023 7:45 AM Signed patient has viewed the [employer] message per Skype. Allergies As of Date: 06/05/2023 Noted Allergy Reaction PLAQUENIL (HYDROXYCHLOROQUINE) 06/28/2020 14 - Other: See Comments Comments: Eye changes on exam 06/2020 (unable to clarify if changes from macular degeneration) Date Reviewed: 06/03/2023 Reviewed by: Brando Shields MD - Fully Assessed Reason for Visit: Results [95] Prescriptions as of 06/07/2023 - chlorthalidone (HYGROTON) 25 mg tablet Take 25 mg by mouth every morning. - losartan (COZAAR) 50 mg tablet Take 50 mg by mouth. - meloxicam (MOBIC) 15 mg tablet TAKE 1 TABLET DAILY WITH FOOD FOR PAIN - prednisoLONE acetate (PRED FORTE) 1 % ophthalmic suspension Use 1 Drop in both eyes every other day. - DULoxetine (CYMBALTA) 60 mg capsule TAKE 1 CAPSULE DAILY - Clindamycin Phosphate 1 % APPLY TO AFFECTED AREAS TWICE DAILY FOR FLARES - levothyroxine (SYNTHROID) 88 mcg tablet Take 88 mcg by mouth once daily. - omeprazole (PRILOSEC) 40 mg capsule Take 40 mg by mouth once daily. - verapamil SR (CALAN SR, ISOPTIN SR) 240 mg CR tablet Take 240 mg by mouth. - anastrozole (ARIMIDEX) 1 mg tablet Take 1 mg by mouth once daily. - albuterol HFA (PROVENTIL HFA, VENTOLIN HFA) 90 mcg/actuation inhaler Inhale 1 Puff as instructed every 4 hours as needed for Wheezing/Shortness of Breath. - cyanocobalamin (VITAMIN B-12) 1,000 mcg tab Take 3,000 mcg by mouth once daily. - acetaminophen (TYLENOL) 500 mg tablet Take 2 tablets by mouth three times daily. - cholecalciferol (VITAMIN D3) 2,000 unit tablet Take 2 tablets by mouth once daily. - HYDROCHLOROTHIAZIDE 50 MG TAB Take one(1) tablet daily Meds Comments as of 06/02/2016: Was taking Keflex/ had kidney stones. 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] 12/14/2008 Postlaminectomy Syndrome, Lumbar Region [M96.1] 12/14/2008 Hypothyroidism [E03.9] Vitamin D deficiency [E55.9] 09/28/2011 LETICIA positive [R76.8] 11/25/2011 06/02/2016 Fatigue [R53.83] 11/25/2011 Family history of lupus erythematosus [Z84.0] 11/25/2011 Multiple joint pain [M25.50] 02/10/2012 Encounter for long-term (current) use of medica*02/10/2012 Bursitis of hip, right [M70.71] 02/10/2012 Hip pain, bilateral [M25.551, M25.552] 11/22/2013 Secondary osteoarthritis of multiple sites [M15*04/17/2014 Chondrocalcinosis due to dicalcium phosphate cr*08/22/2014 Pain in toe of right foot [M79.674] 08/22/2014 Elevated C-reactive protein (CRP) [R79.82] 02/25/2015 Status post bilateral knee replacements [Z96.65*09/03/2015 DJD (degenerative joint disease), ankle and chelsi*03/17/2016 Foot deformity, bilateral [M21.961, M21.962] 03/17/2016 Hammer toes, bilateral [M20.41, M20.42] 03/17/2016 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 06/02/2016 Primary osteoarthritis of left knee [M17.12] 04/19/2016 Essential hypertension [I10] 04/22/2016 Pseudogout involving multiple joints [M11.89] 06/15/2016 Long-term use of Plaquenil [Z79.899] 06/15/2016 Inflammatory arthritis [M19.90] 12/17/2016 Primary osteoarthritis of both knees [M17.0] 05/04/2017 Contusion, knee and lower leg, unspecified late*05/04/2017 Joint stiffness of multiple sites [M25.60] 07/22/2017 Osteopenia of multiple sites [M85.89] 12/02/2018 GERD (gastroesophageal reflux disease) [K21.9] History of breast cancer [Z85.3] 08/27/2020 Lower leg edema [R60.0] 08/27/2020 Pre-operative examination [Z01.818] 04/14/2021 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 Normal [facility] 25(OH)D3 SerPl-mCncon 2023 25-hydroxyvitamin D3 [Mass/Vol] 60.7 ng/mL Normal 31.0-80.0 [facility] Comment on above: Order Comment: Speci men Type: BLOOD SPECIMENOrdering Facility: [facility] Address: [address] [place] [address] Result Comment: Clas sification of 25 [place] Vitamin D status: Deficiency/Insufficiency: < or = 30 ng/ml. Sufficiency/Optimal Levels: 31-80 ng/mL Toxicity: > 100 ng/mL. Test performed by chemiluminescent immunoassay. Performed By: #### 1 989-3 ####[facility] LABCLIA [id number] [place] [address] [place] AVASTIN (BEVACIZUMAB) 1.25MG INTRAVITREAL INJECTION OD (RIGHT EYE)on 06-03-2023 [facility] AVASTIN (BEVACIZUMAB) 1.25MG INTRAVITREAL INJECTION OS (LEFT EYE)on 06-03-2023 [facility] OCT MACULA CIRRUS OU (BOTH E YES)on 06-03-2023 [facility] Radiology Study observation (narrative) [facility] [place] kathleen perf SPECT rest stron 03-16-2023 NM kathleen [place] [address] Nuclear Medicine Report Signed Patient: Fantasma Lewis MR#: [id number] : 1940 Acct:[id number] Age/Sex: 83 / F ADM Date: 03/16/23 Loc: NM Room: Type: [facility] Attending Dr: Mounika Dick DO Copies to: MD Mounika Gtz DO Ordering Provider: Mounika Dick DO Date of Service: 03/16/23 NM/NM kathleen perf SPECT rest str: R07.89 REFERRING PHYSICIAN: Mounika Dick DO REASON FOR STUDY: Shortness of breath. PROCEDURE: The patient underwent a 1-day rest/stress protocol. Rest images obtained by injecting 6.5 mCi of Cardiolite. Stress images obtained by injecting 18.7 mCi of Cardiolite. Subsequently, gated SPECT and ejection fraction studies were performed. IMAGING RESULT: This appears to be a fair study. There is no clear pattern of ischemia or myocardial infarction. Left ventricular ejection fraction appears normal, calculated at 52%. TID index normal at 1.12. CONCLUSION: 1. No clear pattern of ischemia or myocardial infarction. 2. Normal left ventricular systolic function and wall motion. 3. No previous study available for comparison. Transcribed By: DEEJAY 03/17/23 0640 Dictated By: Girish Presley MD 03/16/23 2474 Signed By: 03/17/23 1720 Normal [facility]iqu[facility] 03-08-2023 BARRIEN Telephone (TIFFANY) FANTASMA LEWIS ([id number]) 1940 F Date Time Provider Department 03/08/23 CHALO MENJIVAR During your visit today, we recorded the following information about you: Chalo Menjivar MD 03/08/2023 4:32 PM Signed Please Call patient if MyChart note not read to review results/released to My Chart if tests completed at [facility]: Low vitamin D maybe associated with fatigue/joint/muscle pain. Start vitamin D script with food, then take over the counter vitamin D 4000 International Units daily with food after script completed. Normal rest of labs and inflammation. New script sent to pharmacy. Notify office if medication change is not tolerated. Recheck nonfasting labs in 3months, orders have been placed. Happy to further review and discuss at follow up visit. Continue rest of treatment plan per instructions at last office visit. Thank you. 03/05/23 low vitamin D 28.1;high glucose 137;normal cbc, cmp, esr 5, crp 0.4; Patient's request for medication is as follows: Requested Prescriptions Signed Prescriptions Disp Refills ergocalciferol 50,000 unit capsule (VITAMIN D2, DRISDOL) 16 capsule 0 Sig: (take by mouth with food twice a week, ONE CAPSULE ON WEDNESDAY AND ONE ON WEDNESDAY) FOR A TOTAL OF 8 WEEKS. Authorizing Provider: CHALO MENJIVAR Prescription(s) as above. Please process accordingly. MD Inocente Clayton Surelis, MA 2023 8:48 AM Signed Pt was notified via . 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 - losartan (COZAAR) 50 mg tablet Take 50 mg by mouth. - meloxicam (MOBIC) 15 mg tablet TAKE 1 TABLET DAILY WITH FOOD FOR PAIN - prednisoLONE acetate (PRED FORTE) 1 % ophthalmic suspension Use 1 Drop in both eyes every other day. - DULoxetine (CYMBALTA) 60 mg capsule TAKE 1 CAPSULE DAILY - Clindamycin Phosphate 1 % APPLY TO AFFECTED AREAS TWICE DAILY FOR FLARES - levothyroxine (SYNTHROID) 88 mcg tablet Take 88 mcg by mouth once daily. - omeprazole (PRILOSEC) 40 mg capsule Take 40 mg by mouth once daily. - verapamil SR (CALAN SR, ISOPTIN SR) 240 mg CR tablet Take 240 mg by mouth. - anastrozole (ARIMIDEX) 1 mg tablet Take 1 mg by mouth once daily. - albuterol HFA (PROVENTIL HFA, VENTOLIN HFA) 90 mcg/actuation inhaler Inhale 1 Puff as instructed every 4 hours as needed for Wheezing/Shortness of Breath. - cyanocobalamin (VITAMIN B-12) 1,000 mcg tab Take 3,000 mcg by mouth once daily. - acetaminophen (TYLENOL) 500 mg tablet Take 2 tablets by mouth three times daily. - cholecalciferol (VITAMIN D3) 2,000 unit tablet Take 2 tablets by mouth once daily. - HYDROCHLOROTHIAZIDE 50 MG TAB Take one(1) tablet daily Meds Comments as of 06/02/2016: Was taking Keflex/ had kidney stones. 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] 12/14/2008 Postlaminectomy Syndrome, Lumbar Region [M96.1] 12/14/2008 Hypothyroidism [E03.9] Vitamin D deficiency [E55.9] 09/28/2011 LETICIA positive [R76.8] 11/25/2011 06/02/2016 Fatigue [R53.83] 11/25/2011 Family history of lupus erythematosus [Z84.0] 11/25/2011 Multiple joint pain [M25.50] 02/10/2012 Encounter for long-term (current) use of medica*02/10/2012 Bursitis of hip, right [M70.71] 02/10/2012 Hip pain, bilateral [M25.551, M25.552] 11/22/2013 Secondary osteoarthritis of multiple sites [M15*04/17/2014 Chondrocalcinosis due to dicalcium phosphate cr*08/22/2014 Pain in toe of right foot [M79.674] 08/22/2014 Elevated C-reactive protein (CRP) [R79.82] 02/25/2015 Status post bilateral knee replacements [Z96.65*09/03/2015 DJD (degenerative joint disease), ankle and chelsi*03/17/2016 Foot deformity, bilateral [M21.961, M21.962] 03/17/2016 Hammer toes, bilateral [M20.41, M20.42] 03/17/2016 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 Normal [facility](OH)[facility]3 [facility] 25-hydroxyvitamin D3 [Mass/Vol] 28.1 ng/mL Low 31.0-80.0 [facility] Comment on above: Order Comment: Speci men Type: BLOOD SPECIMENOrdering Facility: [facility] Address: [address] [place] [address] Result Comment: Clas sification of 25 OH Vitamin D status: Deficiency/Insufficiency: < or = 30 ng/ml. Sufficiency/Optimal Levels: 31-80 ng/mL Toxicity: > 100 ng/mL. Test performed by chemiluminescent immunoassay. Performed By: #### 1 989-3 ####[facility] LABIA [id number] [place] [address] [place] CBC panel Auto (Bld)on 03-05 Erythrocyte distribution width (RBC) [Ratio] 13.4 % Normal 11.5-15.0 [facility] Comment on above: Order Comment: Genaroi giancarlo Type: BLOOD SPECIMENOrdering Facility: [facility] Address: [address] [place] [address] Performed By: #### 5 8410-2, 4537-7 ####[facility] LABIA [id number] [place] [address] [place] Hematocrit (Bld) [Volume fraction] 43.9 % Normal 36.0-46.0 [facility] Comment on above: Order Comment: Genaroi giancarlo Type: BLOOD SPECIMENOrdering Facility: [facility] Address: [address] [place] [address] Performed By: #### 5 8410-2, 4537-7 ####[facility] [id number] [place] [address] [place] Hemoglobin (Bld) [Mass/Vol] 13.5 g/dL Normal 11.5-15.5 [facility] Comment on above: Order Comment: Speci men Type: BLOOD SPECIMENOrdering Facility: [facility] Address: [address] [place] [address] Performed By: #### 5 8410-2, 4537-7 ####[facility] [id number] [place] [address] [place] MCH (RBC) [Entitic mass] 30.4 pg Normal 26.0-34.0 [facility] Comment on above: Order Comment: Speci men Type: BLOOD SPECIMENOrdering Facility: [facility] Address: [address] [place] [address] Performed By: #### 5 8410-2, 453-7 ####[facility] [id number] [place] [address] [place] MCHC (RBC) [Mass/Vol] 30.8 g/dL Normal 30.5-36.0 [facility] Comment on above: Order Comment: Speci men Type: BLOOD SPECIMENOrdering Facility: [facility] Address: [address] [place] [address] Performed By: #### 5 8410-2, 4537-7 ####[facility] [id number] [place] [address] [place] MCV (RBC) [Entitic vol] 98.9 fL Normal 80.0-100.0 [facility] Comment on above: Order Comment: Speci men Type: BLOOD SPECIMENOrdering Facility: [facility] Address: [address] [place] [address] Performed By: #### 5 8410-2, 4537-7 ####[facility] LABCLIA [id number] [place] [address] [place] Nucleated RBC (Bld) [#/Vol] 10*3/uL Normal <0.01 [facility] Comment on above: Order Comment: Speci men Type: BLOOD SPECIMENOrdering Facility: [facility] Address: [address] [place] [address] Performed By: #### 5 8410-2, 4537-7 ####[facility] LABCLIA [id number] [place] [address] [place] Platelet mean volume (Bld) [Entitic vol] 10.2 fL Normal 9.0-12.7 [facility] Comment on above: Order Comment: Speci men Type: BLOOD SPECIMENOrdering Facility: [facility] Address: [address] [place] [address] Performed By: #### 5 8410-2, 4536-7 ####[facility] LABCLIA [id number] [place] [address] [place] Platelets (Bld) [#/Vol] 362 10*3/uL Normal 150-400 [facility] Comment on above: Order Comment: Speci men Type: BLOOD SPECIMENOrdering Facility: [facility] Address: [address] [place] [address] Performed By: #### 5 8410-2, 7-7 ####[facility] LABCLIA [id number] [place] [address] [place] RBC (Bld) [#/Vol] 4.44 10*6/uL Normal 3.90-5.20 [facility] Comment on above: Order Comment: Speci men Type: BLOOD SPECIMENOrdering Facility: [facility] Address: [address] [place] [address] Performed By: #### 5 8410-2, 4537-7 ####[facility] LABCLIA [id number] [place] [address] [place] WBC (Bld) [#/Vol] 8.47 10*3/uL Normal 3.70-11.00 [facility] Comment on above: Order Comment: Speci men Type: BLOOD SPECIMENOrdering Facility: [facility] Address: [address] [place] [address] Performed By: #### 5 8410-2, 4537-7 ####[facility] [id number] [place] [address] [place] CNOVon 03-05-2023 CNOV Office Visit (TIFFANY ) FANTASMA LEWIS ([id number]) 1940 F Date Time Provider Department 03/05/23 1:40 PM CHALO MENJIVAR During your visit today, we recorded the following information about you: Pulse Blood pressure Weight 107/minute 159/82 74 kg Chalo Menjivar MD 03/05/2023 1:30 PM Signed May apply over the counter arthritis cream (biofreeze, icy hot, asper cream, tiger balm, capsacin, etc.) to painful joints up to four times a day. Avoid contact with eyes. May take ES acetaminophen 500mg every 4-6hours for joint pain. Do not exceed 3000mg /day. Apply heat/ice 20minutes on and off to areas of pain mobic/meloxicam 15mg daily with food for pain lidocaine ointment as instucted to areas of pain If needed, may take Calcium citrate 1200mg divided throughout the day with food Vitamin D 4000 International Units daily with food OFF Fosamax/alendronate Recommend goal: exercising 30minutes 3 times a week Recommend weight-bearing aerobic exercises such as walking, dancing, low impact aerobics, elliptical machine, stair climbing, gardening flexibility exercises and strength training exercises Recommend avoiding high impact exercises such as jumping, running or jogging or movements where you bend forward and twist the waist, for instance- touching your toes, sit-ups, using row mach. see Derm for skin changes Increase water intake prior to and 1week to prolia or IV reclast Next prolia due every 6months, prior prolia 08/31/22, 03/05/23 Next bone mineral density after 09/01/24 nonfasting labs as scheduled Thank you. [facility] 09/01/22 bmd osteopenia/stable Component Latest Ref Rng AND Units 08/03/2022 Protein, Total 6.3 - 8.0 g/dL 6.5 Albumin 3.9 - 4.9 g/dL 4.2 Calcium 8.5 - 10.2 mg/dL 10.1 Bilirubin, Total 0.2 - 1.3 mg/dL 0.2 Alkaline Phosphatase 34 - 123 U/L 90 AST 13 - 35 U/L 16 ALT 7 - 38 U/L 6 (L) Glucose 74 - 99 mg/dL 85 BUN 7 - 21 mg/dL 16 Creatinine 0.58 - 0.96 mg/dL 0.76 Sodium 136 - 144 mmol/L 140 Potassium 3.7 - 5.1 mmol/L 4.8 Chloride 97 - 105 mmol/L 99 CO2 22 - 30 mmol/L 29 Anion Gap 9 - 18 mmol/L 12 eGFR >=60 mL/min/1.73mA? 79 WBC 3.70 - 11.00 k/uL 8.45 RBC 3.90 - 5.20 m/uL 4.14 Hemoglobin 11.5 - 15.5 g/dL 13.0 Hematocrit 36.0 - 46.0 % 42.0 MCV 80.0 - 100.0 fL 101.4 (H) MCH 26.0 - 34.0 pg 31.4 MCHC 30.5 - 36.0 g/dL 31.0 RDW-CV 11.5 - 15.0 % 12.8 Platelet Count 150 - 400 k/uL 293 MPV 9.0 - 12.7 fL 10.6 Absolute nRBC <0.01 k/uL <0.01 Vitamin D 25 Hydroxy 31.0 - 80.0 ng/mL 41.2 Vitamin B12 232 - 1,245 pg/mL 1,551 (H) Uric Acid 2.5 - 6.6 mg/dL 3.1 WSR 0 - 20 mm/hr 8 CRP <0.9 mg/dL 0.3 Chalo Menjivar MD 03/05/2023 2:50 PM Signed Face to face Follow up for rheumatoid arthritis/pseudogout/ degenerative joint disease/joint pain/psoriasis/clinica l osteoporosis Today's visit 03/05/23:Patient here requesting prolia. Did fine with last prolia 08/31/22. No dental work planned. Not taking antibiotics. No signs or symptoms of infection. No recent oral steroids. Taking mobic, cymbalta, arimidex, tylenol, vitamin b12, vitamin D 4000 International Units daily with food, hctz. Was able to travel to [place] last year. [facility] 09/01/22 bmd osteopenia/stable 10/2022 +COVID19 infection could not tolerated paxlovid Few weeks later developed severe dizziness/vertigo, started PT with some improvement Then saw primary care provider, high BP Due for cardiac stress test, reports vision different, stable CT head Requesting to see /ophthalmology High stress daughter s/p lumbar surgery for scoliosis/lots of hardware Using cane. limited exercise due to dizziness. no swelling. Chronic current pain in knees, low back, less hip/feet pain. Pain worse in AM. Better with tylenol. Reports pain 3-4/10. Has minimal AM stiffness. COVID vaccine 03/08/20, 03/29/20, 12/25/20, 01/23/22. Feels safe at home. Has enough food, supplies and medications. Overall mildly uncomfortable but happy with rheum care. No falls/fx/trauma/illnes s/oral sores/rash/hairloss/ja w pain/dysphagia/epistax is/hemoptysis since last visit. No adverse effects with meds. No other complaints. Patient denies fever, chills, cp, dyspnea, nausea, vomiting, night sweats, scalp tenderness, visual changes, murcia, bowel/bladder changes, weight changes or other complaints. Last visit supportive care, restart fall precautions, limit basement visits, use cane everywhere, see neurosurgery, start prolia if approved since missed/intolerant of weekly fosamax for abnormal BMD/on alf arimidex, see oncology, follow up with PCP/ENT for sinus headache care, increase water intake, f/u podiatry, prn lidocaine ointment, f/u with ortho, see derm if rash/psoriasis persists/worsens/has topicals, OFF plaquenil/restart if high APRs, see ophthalmology, vit D 4000 International Units daily, in future may consider startin (more content not included)... Normal [facility] CNPNon 03-05-2023 CNPN Telephone (HSOPMN) FANTASMA LEWIS ([id number]) 1940 F Date Time Provider Department 03/05/23 NIC [facility] During your visit today, we recorded the following information about you: Esme Warner 03/05/2023 2:33 PM Signed This pt presented at my desk after a Rheumatology appointment. Dr. Menjivar would like Fantasma to see ophthalmology again for Eval and treat visual changes, new dizziness . Pt requested to see you again and had already scheduled an appointment for 04/29/2023. However, you do not have anything sooner than that. Is your office able to reach out to schedule her sooner with a member of your team? Thank you, Esme Warner, PSS Nic Anderson MD 03/10/2023 12:33 PM Signed Tracie, could you find out if any other provider could see her while I am out (comp/optom/cornea/fel low all would be fine to evaluate and triage if there are any new problems until I see her in April)? If the symptoms are mild and chronic and she wants to wait until her appt in April that is fine as well. Thanks Augie Jacobson 03/10/2023 1:09 PM Signed Left message via [employer] for patient to return call regarding eye concerns. Allergies As of Date: 03/05/2023 Noted Allergy Reaction PLAQUENIL (HYDROXYCHLOROQUINE) 06/28/2020 14 - Other: See Comments Comments: Eye changes on exam 06/2020 (unable to clarify if changes from macular degeneration) Date Reviewed: 03/05/2023 Reviewed by: Chalo Menjivar MD - Fully Assessed Reason for Visit: Appointment [186] Prescriptions as of 03/10/2023 - ergocalciferol 50,000 unit capsule (VITAMIN D2, DRISDOL) (take by mouth with food twice a week, ONE CAPSULE ON WEDNESDAY AND ONE ON WEDNESDAY) FOR A TOTAL OF 8 WEEKS. - losartan (COZAAR) 50 mg tablet Take 50 mg by mouth. - meloxicam (MOBIC) 15 mg tablet TAKE 1 TABLET DAILY WITH FOOD FOR PAIN - prednisoLONE acetate (PRED FORTE) 1 % ophthalmic suspension Use 1 Drop in both eyes every other day. - DULoxetine (CYMBALTA) 60 mg capsule TAKE 1 CAPSULE DAILY - Clindamycin Phosphate 1 % APPLY TO AFFECTED AREAS TWICE DAILY FOR FLARES - levothyroxine (SYNTHROID) 88 mcg tablet Take 88 mcg by mouth once daily. - omeprazole (PRILOSEC) 40 mg capsule Take 40 mg by mouth once daily. - verapamil SR (CALAN SR, ISOPTIN SR) 240 mg CR tablet Take 240 mg by mouth. - anastrozole (ARIMIDEX) 1 mg tablet Take 1 mg by mouth once daily. - albuterol HFA (PROVENTIL HFA, VENTOLIN HFA) 90 mcg/actuation inhaler Inhale 1 Puff as instructed every 4 hours as needed for Wheezing/Shortness of Breath. - cyanocobalamin (VITAMIN B-12) 1,000 mcg tab Take 3,000 mcg by mouth once daily. - acetaminophen (TYLENOL) 500 mg tablet Take 2 tablets by mouth three times daily. - cholecalciferol (VITAMIN D3) 2,000 unit tablet Take 2 tablets by mouth once daily. - HYDROCHLOROTHIAZIDE 50 MG TAB Take one(1) tablet daily Meds Comments as of 06/02/2016: Was taking Keflex/ had kidney stones. 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 cr*08/22/2014 Pain in toe of right foot [M79.674] 08/22/2014 Elevated C-reactive protein (CRP) [R79.82] 02/25/2015 Status post bilateral knee replacements [Z96.65*09/03/2015 DJD (degenerative joint disease), ankle and chelsi*03/17/2016 Foot deformity, bilateral [M21.961, M21.962] 03/17/2016 Hammer toes, bilateral [M20.41, M20.42] 03/17/2016 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 06/02/2016 Primary osteoarthritis of left knee [M17.12] 04/19/2016 Essential hypertension [I10] 04/22/2016 Pseudogout involving multiple joints [M11.89] 06/15/2016 Long-term use of Plaquenil [Z79.899] 06/15/2016 Inflammatory arthritis [M19.90] 12/17/2016 Primary osteoarthritis of both knees [M17.0] 05/04/2017 Contusion, knee and lower leg, unspecified late*05/04/2017 Joint stiffness of multiple sites [M25.60] 07/22/2017 Osteopenia of multiple sites [M85.89] 12/02/2018 GERD (gastroesophageal reflux disease) [K21.9] History of breast cancer [Z85.3] 08/27/2020 Lower leg edema [R60.0] 08/27/2020 Pre-operative examination [Z01.818] 04/14/2021 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 Normal [facility] CRP SerPl-mCncon 03-05-2023 CRP [Mass/Vol] 0.4 mg/dL Normal <0.9 [facility] Comment on above: Order Comment: Speci men Type: BLOOD SPECIMENOrdering Facility: [facility] Address: [address] [id number] Performed By: #### 2 4328, 1987-06 ####[facility] LABIA [id number] [place] [id number] [place] [facility] Comprehensive metabolic 2000 panelon 03-05-2023 Albumin [Mass/Vol] 4.2 g/dL Normal 3.9-4.9 [facility] Comment on above: Order Comment: Speci men Type: BLOOD SPECIMENOrdering Facility: [facility] Address: [address] [place], [place] [id number] Performed By: #### 2 4328, 1987-06 ####[facility] LABIA [id number] [place] [id number] [place] ALP [Catalytic activity/Vol] 74 U/L Normal 34-123 [facility] Comment on above: Order Comment: Speci men Type: BLOOD SPECIMENOrdering Facility: [facility] Address: [address] [place] [address] Performed By: #### 2 43238, 1987-06 ####[facility] LABIA [id number] [place] [id number] [place] ALT [Catalytic activity/Vol] 8 U/L Normal 7-38 [facility] Comment on above: Order Comment: Speci men Type: BLOOD SPECIMENOrdering Facility: [facility] Address: [address] [id number] Performed By: #### 2 4322-09, 1987-06 ####[facility] LABCLIA [id number] [facility] [address] [address] [place] Anion gap [Moles/Vol] 12 mmol/L Normal 9-18 [facility] Comment on above: Order Comment: Speci men Type: BLOOD SPECIMENOrdering Facility: [facility] Address: [address] [place], [place] [phone] Performed By: #### 2 4322-09, 1987-06 ####[facility] LABCLIA [id number] [facility] [place] [address] [place] AST [Catalytic activity/Vol] 17 U/L Normal 13-35 [facility] Comment on above: Order Comment: Speci men Type: BLOOD SPECIMENOrdering Facility: [facility] Address: [address] [place], [place] [phone] Performed By: #### 2 4322-09, 1987-06 ####[facility] LABCLIA [id number] [facility] [address] [address] [place] Bilirubin [Mass/Vol] 0.3 mg/dL Normal 0.2-1.3 [facility] Comment on above: Order Comment: Speci men Type: BLOOD SPECIMENOrdering Facility: [facility] Address: [address] [place], [place] [phone] Performed By: #### 2 4322-09, 1987-06 ####[facility] LABCLIA [id number] [facility] [address] [address] [place] Calcium [Mass/Vol] 9.9 mg/dL Normal 8.5-10.2 [facility] Comment on above: Order Comment: Speci men Type: BLOOD SPECIMENOrdering Facility: [facility] Address: [address] [place], [place] [phone] Performed By: #### 2 4322-09, 1987-06 ####[facility] LABCLIA [id number] [place] [address] [place] Chloride [Moles/Vol] 103 mmol/L Normal 97-105 [facility] Comment on above: Order Comment: Speci men Type: BLOOD SPECIMENOrdering Facility: [facility] Address: [address] [place] [address] Performed By: #### 2 4323-8, 1987-06 ####[facility] LABCLIA [id number] [place] [address] [place] CO2 [Moles/Vol] 27 mmol/L Normal 22-30 [facility] Comment on above: Order Comment: Speci men Type: BLOOD SPECIMENOrdering Facility: [facility] Address: [address] [place] [address] Performed By: #### 2 4323-8, 1987-06 ####[facility] LABCLIA [id number] [place] [address] [place] Creatinine [Mass/Vol] 0.74 mg/dL Normal 0.58-0.96 [facility] Comment on above: Order Comment: Speci men Type: BLOOD SPECIMENOrdering Facility: [facility] Address: [address] [place] [address] Performed By: #### 2 4323-8, 1987-06 ####[facility] LABIA [id number] [address] [place] [facility] Creatinine and Glomerular filtration rate.predicted panel (S/P/Bld) 82 mL/min/1.73m??? Normal >=60 [facility] Comment on above: Order Comment: Speci men Type: BLOOD SPECIMENOrdering Facility: [facility] Address: [address] [place] [address] Result Comment: Sondra mated Glomerular Filtration Rate (eGFR) is calculated using the 2020 CKD-EPI creatinine equation. This equation utilizes serum creatinine, sex, and age as parameters. The creatinine assay has traceable calibration to isotope dilution-mass spectrometry. Refer to KDIGO guidelines for clinical interpretation. In patients with unstable renal function, e.g. those with acute kidney injury, the eGFR may not accurately reflect actual GFR. Performed By: #### 2 43204-15, 1987-06 ####[facility] LABCLIA [id number] [place] [id number] [place] Glucose [Mass/Vol] 137 mg/dL High 74-99 [facility] Comment on above: Order Comment: Specsp men Type: BLOOD SPECIMENOrdering Facility: [facility] Address: [address] [place] [address] Result Comment: The [place] [employer] (ADA) provides guidance for cutoff values for fasting glucose and random glucose. The ADA defines fasting as no caloric intake for at least 8 hours. Fasting plasma glucose results between 100 to 125 mg/dL indicate increased risk for diabetes (prediabetes). Fasting plasma glucose results greater than or equal to 126 mg/dL meet the criteria for diagnosis of diabetes. In the absence of unequivocal hyperglycemia, results should be confirmed by repeat testing. In a patient with classic symptoms of hyperglycemia or hyperglycemic crisis, random plasma glucose results greater than or equal to 200 mg/dL meet the criteria for diagnosis of diabetes. Reference: Standards of Medical Care in Diabetes 2016, [place] [employer]. Diabetes Care. 2016.39(Suppl 1). Performed By: #### 2 43204-15, 1987-06 ####[facility] LABCLIA [id number] [place] [address] [place] Potassium [Moles/Vol] 4.3 mmol/L Normal 3.7-5.1 [facility] Comment on above: Order Comment: Juan men Type: BLOOD SPECIMENOrdering Facility: [facility] Address: [address] [place] [address] Performed By: #### 2 43204-15, 1987-06 ####[facility] LABIA [id number] [place] [address] [place] Protein [Mass/Vol] 6.7 g/dL Normal 6.3-8.0 [facility] Comment on above: Order Comment: Juan men Type: BLOOD SPECIMENOrdering Facility: [facility] Address: [address] [place], [place] [phone] Performed By: #### 2 4323-8, 1987-06 ####[facility] LABCLIA [id number] [place] [id number] [place] Sodium [Moles/Vol] 142 mmol/L Normal 136-144 [facility] Comment on above: Order Comment: Speci men Type: BLOOD SPECIMENOrdering Facility: [facility] Address: [address] [place] [address] Performed By: #### 2 4323-8, 1987-06 ####[facility] LABIA [id number] [place] [address] [place] Urea nitrogen [Mass/Vol] 20 mg/dL Normal 7-21 [facility] Comment on above: Order Comment: Speci men Type: BLOOD SPECIMENOrdering Facility: [facility] Address: [address] [place] [address] Performed By: #### 2 4323-8, 1987-06 ####[facility] LABIA [id number] [place] [address] [place] ESR Westergren method (Bld) [Velocity]on 03-05-2023 ESR (Bld) [Velocity] 5 mm/h Normal 0-20 [facility] Comment on above: Order Comment: Speci men Type: BLOOD SPECIMENOrdering Facility: [facility] Address: [address] [place] [address] Performed By: #### 5 8410-2, 4537-7 ####[facility] LABIA [id number] [place] [id number] [place] CT HEAD WO IV CONTRASTon CT HEAD WO IV CONTRAST EXAMINATION: CT H EAD WO IV CONTRAST HISTORY: Visual changes COMPARISON: None available TECHNIQUE: Multiple axial images were obtained of the brain from the skull base through the vertex. Multiplanar reformats were obtained. All CT scans at this facility use dose modulation, iterative reconstruction, and/or weight based dosing when appropriate to reduce radiation dose to as low as reasonably achievable. FINDINGS: Prominence of the sulci and ventricles compatible with mild generalized parenchymal volume loss. Guerrero-white matter differentiation is preserved. Areas of bilateral supratentorial white matter hypoattenuation are nonspecific but most likely due to chronic small vessel ischemic changes in a patient of this age. No acute hemorrhage or abnormal extra-axial fluid collection. Basal cisterns are patent. No mass effect or midline shift. Mild paranasal sinus mucosal thickening. The mastoid air cells are clear. Calvarium is intact. IMPRESSION: No acute intracranial process. Generalized parenchymal volume loss and nonspecific white matter findings most compatible with chronic small vessel ischemic changes in a patient of this age. ELECTRONICALLY SIGNED BY: Aldair Ceja, DO Normal Not Available Trudy 01-03-[address] [facility] Telephone (OPHTMN) FANTASMA LEWIS ([id number]) 1940 F Date Time Provider Department 01/03/23 [facility] visit today, we recorded the following information about you: Paulo Fagan MD 01/03/2023 2:48 PM Signed Received page that patient had called. Spoke to them on the phone at 2:45 PM History is notable for the following pertinent items: New SIMON noted, mild irritation Rubbed her eye when waking up No pain, redness, floaters, flashes, curtain, vision changes Reviewed if the patient experiences any significant change in symptoms, worsening vision, pain or new symptoms, they should call back or go to the ED. Provided eye clinic number [phone] or [phone]. Reminded pt they may call back at any time Patient verbalized understanding. Paulo Fagan MD Allergies As of Date: 01/03/2023 Noted Allergy Reaction PLAQUENIL (HYDROXYCHLOROQUINE) 06/28/2020 14 - Other: See Comments Comments: Eye changes on exam 06/2020 (unable to clarify if changes from macular degeneration) Date Reviewed: 08/31/2022 Reviewed by: Felicia Perry LPN - Fully Assessed Reason for Visit: Patient Update [1234] Prescriptions as of 01/03/2023 - meloxicam (MOBIC) 15 mg tablet TAKE 1 TABLET DAILY WITH FOOD FOR PAIN - prednisoLONE acetate (PRED FORTE) 1 % ophthalmic suspension Use 1 Drop in both eyes every other day. - DULoxetine (CYMBALTA) 60 mg capsule TAKE 1 CAPSULE DAILY - Clindamycin Phosphate 1 % APPLY TO AFFECTED AREAS TWICE DAILY FOR FLARES - levothyroxine (SYNTHROID) 88 mcg tablet Take 88 mcg by mouth once daily. - omeprazole (PRILOSEC) 40 mg capsule Take 40 mg by mouth once daily. - verapamil SR (CALAN SR, ISOPTIN SR) 240 mg CR tablet Take 240 mg by mouth. - anastrozole (ARIMIDEX) 1 mg tablet Take 1 mg by mouth once daily. - albuterol HFA (PROVENTIL HFA, VENTOLIN HFA) 90 mcg/actuation inhaler Inhale 1 Puff as instructed every 4 hours as needed for Wheezing/Shortness of Breath. - cyanocobalamin (VITAMIN B-12) 1,000 mcg tab Take 3,000 mcg by mouth once daily. - acetaminophen (TYLENOL) 500 mg tablet Take 2 tablets by mouth three times daily. - cholecalciferol (VITAMIN D3) 2,000 unit tablet Take 2 tablets by mouth once daily. - HYDROCHLOROTHIAZIDE 50 MG TAB Take one(1) tablet daily Meds Comments as of 06/02/2016: Was taking Keflex/ had kidney stones. 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] 12/14/2008 Postlaminectomy Syndrome, Lumbar Region [M96.1] 12/14/2008 Hypothyroidism [E03.9] Vitamin D deficiency [E55.9] 09/28/2011 LETICIA positive [R76.8] 11/25/2011 06/02/2016 Fatigue [R53.83] 11/25/2011 Family history of lupus erythematosus [Z84.0] 11/25/2011 Multiple joint pain [M25.50] 02/10/2012 Encounter for long-term (current) use of medica*02/10/2012 Bursitis of hip, right [M70.71] 02/10/2012 Hip pain, bilateral [M25.551, M25.552] 11/22/2013 Secondary osteoarthritis of multiple sites [M15*04/17/2014 Chondrocalcinosis due to dicalcium phosphate cr*08/22/2014 Pain in toe of right foot [M79.674] 08/22/2014 Elevated C-reactive protein (CRP) [R79.82] 02/25/2015 Status post bilateral knee replacements [Z96.65*09/03/2015 DJD (degenerative joint disease), ankle and chelsi*03/17/2016 Foot deformity, bilateral [M21.961, M21.962] 03/17/2016 Hammer toes, bilateral [M20.41, M20.42] 03/17/2016 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 06/02/2016 Primary osteoarthritis of left knee [M17.12] 04/19/2016 Essential hypertension [I10] 04/22/2016 Pseudogout involving multiple joints [M11.89] 06/15/2016 Long-term use of Plaquenil [Z79.899] 06/15/2016 Inflammatory arthritis [M19.90] 12/17/2016 Primary osteoarthritis of both knees [M17.0] 05/04/2017 Contusion, knee and lower leg, unspecified late*05/04/2017 Joint stiffness of multiple sites [M25.60] 07/22/2017 Osteopenia of multiple sites [M85.89] 12/02/2018 GERD (gastroesophageal reflux disease) [K21.9] History of breast cancer [Z85.3] 08/27/2020 Lower leg edema [R60.0] 08/27/2020 Pre-operative examination [Z01.818] 04/14/2021 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] 04/14/2021 Mild intermittent asthma without complication [*04/14/2021 Pseudophakia [Z96.1] 01/27/2022 PCO (posterior capsular opacification), bilater*01/27/2022 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 Encounter Status:Closed by PAULO FAGAN on 01/03/23 Normal [facility] ECG 12 Leadon 12-08-2022 Normal sinus rhythm Normal EKG QTc 425 ms [facility] Work Phone: Ambulatory Visit Summaryon 1 Ambulatory Visit Summary FANTASMA LEWIS :1940 Visit Date:11/17/2022 Ambulatory Visit Instructions Your Diagnosis Kidney stones Your Care Team Attending Physician - Noe LOZA MD Primary Care Physician - RONEY LEROY DO This Is Your Medications List Contact prescribing physician if questions or concerns alendronate (Fosamax 70 mg oral tablet) alendronate (alendronate 70 mg Tab) anastrozole (anastrozole 1 mg Tab) cyanocobalamin (Vitamin B-12) duloxetine (Cymbalta) ergocalciferol (Vitamin D) hydrochlorothiazide (hydrochlorothiazide 50 mg Tab) levothyroxine (Synthroid) meclizine (meclizine 25 mg Tab) meloxicam (meloxicam 15 mg oral tablet) omeprazole (Prilosec) prednisoLONE ophthalmic (prednisoLONE Opth acetate 1% Susp 5 mL) verapamil (verapamil 240 mg ER Tab) Procedures Performed ESWL - Extracorporeal shockwave lithotripsy for renal calculus (11/21/2020), ESW[facility] - Extracorporeal shockwave lithotripsy for renal calculus (07/01/2017), Urodynamics (06/19/2015), Cystourethroscopy with dilation of urethral stricture (11/26/2014), Knee replacement (2007), Biopsy of breast (1987), Renal exploration (1967), Appendectomy, Breast surgery, Corneal transplant, Procedure on back, Total knee arthroplasty, Total knee arthroplasty. Discharge Vitals Heart Rate (Peripheral) 84 Blood Pressure 148/22 Height 160 cm Height 63 in Weight 75.9 kg Weight 166.98 lb BMI 29.65 What to do next Scheduled Follow-Up Appointments Wednesday 1:00 PM EDT With: Noe LOZA MD Where: [facility] Patient Educationon 11-18-19 Patient Education Nephrology Dietary Guidelines to Help Prevent Kidney Stones Kidney stones are deposits of minerals and salts that form inside your kidneys. Your risk of developing kidney stones may be greater depending on your diet, your lifestyle, the medicines you take, and whether you have certain medical conditions. Most people can lower their chances of developing kidney stones by following the instructions below. Your dietitian may give you more specific instructions depending on your overall health and the type of kidney stones you tend to develop. What are tips for following this plan? Reading food labels ? Choose foods with no salt added or low-salt labels. Limit your salt (sodium) intake to less than 1,500 mg a day. ? Choose foods with calcium for each meal and snack. Try to eat about 300 mg of calcium at each meal. Foods that contain 200?500 mg of calcium a serving include: ? 8 oz (237 mL) of milk, oaswnhg-umpgsneyslxh-h airy milk, and calcium-fortifiedfruit juice. Calcium-fortified means that calcium has been added to these drinks. ? 8 oz (237 mL) of kefir, yogurt, and soy yogurt. ? 4 oz (114 g) of tofu. ? 1 oz (28 g) of cheese. ? 1 cup (150 g) of dried figs. ? 1 cup (91 g) of cooked broccoli. ? One 3 oz (85 g) can of sardines or mackerel. Most people need 1,000?1,500 mg of calcium a day. Talk to your dietitian about how much calcium is recommended for you. Shopping ? Buy plenty of fresh fruits and vegetables. Most people do not need to avoid fruits and vegetables, even if these foods contain nutrients that may contribute to kidney stones. ? When shopping for convenience foods, choose: ? Whole pieces of fruit. ? Pre-made salads with dressing on the side. ? Low-fat fruit and yogurt smoothies. ? Avoid buying frozen meals or prepared deli foods. These can be high in sodium. ? Look for foods with live cultures, such as yogurt and kefir. ? Choose high-fiber grains, such as whole-wheat breads, oat bran, and wheat cereals. Cooking ? Do not add salt to food when cooking. Place a salt shaker on the table and allow each person to add his or her own salt to taste. ? Use vegetable protein, such as beans, textured vegetable protein (TVP), or tofu, instead of meat in pasta, casseroles, and soups. Meal planning ? Eat less salt, if told by your dietitian. To do this: ? Avoid eating processed or pre-made food. ? Avoid eating fast food. ? Eat less animal protein, including cheese, meat, poultry, or fish, if told by your dietitian. To do this: ? Limit the number of times you have meat, poultry, fish, or cheese each week. Eat a diet free of meat at least 2 days a week. ? Eat only one serving each day of meat, poultry, fish, or seafood. ? When you prepare animal protein, cut pieces into small portion sizes. For most meat and fish, one serving is about the size of the palm of your hand. ? Eat at least five servings of fresh fruits and vegetables each day. To do this: ? Keep fruits and vegetables on hand for snacks. ? Eat one piece of fruit or a handful of berries with breakfast. ? Have a salad and fruit at lunch. ? Have two kinds of vegetables at dinner. ? Limit foods that are high in a substance called oxalate. These include: ? Spinach (cooked), rhubarb, beets, sweet potatoes, and Georgian chard. ? Peanuts. ? Potato chips, lao fries, and baked potatoes with skin on. ? Nuts and nut products. ? Chocolate. ? If you regularly take a diuretic medicine, make sure to eat at least 1 or 2 servings of fruits or vegetables that are high in potassium each day. These include: ? Avocado. ? Banana. ? Arminto, prune, carrot, or tomato juice. ? Baked potato. ? Cabbage. ? Beans and split peas. Lifestyle ? Drink enough fluid to keep your urine pale yellow. This is the most important thing you can do. Spread your fluid intake throughout the day. ? If you drink alcohol: ? Limit how much you use to: ? 0?1 drink a day for women who are not . ? 0?2 drinks a day for men. ? Be aware of how much alcohol is in your drink. In the [place] one drink equals one 12 oz bottle of beer (355 mL), one 5 oz glass of wine (148 mL), or one 1? oz glass of hard liquor (44 mL). ? Lose weight if told by your health care provider. Work with your dietitian to find an eating plan and weight loss strategies that work best for you. General information ? Talk to your health care provider and dietitian about taking daily supplements. You may be told the following depending on your health and the cause of your kidney stones: ? Not to take supplements with vitamin C. ? To take a calcium supplement. ? To take a daily probiotic supplement. ? To take other supplements such as magnesium, fish oil, or vitamin B6. ? Take khfa-rzg-styjyfq and prescription medicines only as told by your health care provider. These include supplements. What foods should I limit? Limit your in (more content not included)... Normal [facility] Urology Office/Clinic Noteon 11-17-2022 Urology Office/Clinic Note Chief Complaint 1 year F/U with [facility] HPI Staff 1 year follow up w/[facility]. Current [facility] done 11/13/22-[facility], Previous DX: HX of kidney stones. S/P ESWL 11/21/20. Could not give a urine sample today [facility] ER 10/19/22.. CC dizziness, nausea. tx'd Meclizine, Still taking wants to wean off of this, per PCP wants her to wean off. Dysuria: denies Incomplete bladder emptying: denies Hematuria: denies visible blood Frequency: every 2 hours Urgency: _denies Nocturia: every 2 hours, wears pad nightly changes once Stream: denies hesitation, normal stream Leaking: _denies Post void dripping: denies Wearing pads/ Depends: pads nightly Urge incontinence: denies Stress incontinence: denies Incontinence without Sensory Awareness: denies Abdominal pain: _denies Flank pain: Right side, started months ago Sexual complaints: denies History of Present Illness Tests reviewed: reviewed ER records, [facility], CT, [facility] I have reviewed the previous health record information and history for this patient from Dr. Loza. I have reviewed and verified the staff HPI to be accurate for this encounter. There have been no associated fever, chills, flank pain, or blood in the urine. Denies any urinary infections since last encounter. Review of Systems PHQ Score Initial Depression Screen Score: 0 ROS - Provider Constitutional: denies weight loss, denies hot flashes. Eyes: denies eye problems. Gastrointestinal: denies nausea, denies vomiting. Cardiovascular: denies chest pain or angina. Integumentary: no dryness Musculoskeletal: denies musculoskeletal symptoms. ENMT: denies otolaryngeal symptoms. Respiratory: no shortness of breath. Heme/Lymph: denies easy bleeding tendency, denies easy bruising tendency. Psychiatric: no confusion, no anxiety. Genitourinary: See HPI. Physical Exam Vitals & Measurements HR: 84(Peripheral) BP: 148/22 HT: 63 in HT: 160 cm WT: 75.9 kg WT: 166.98 lb BMI: 29.65 General Appearance: alert , no acute distress, well nourished, well developed female. Genitourinary: bladder nonpalpable, no flank pain. Assessment/Plan 1. Kidney stones (N20.0: Calculus of kidney) [facility] ER 12/03/21 due to R flank pain that radiated to RLQ. DOUG 12/03/21 - 9 mm nonobstructing nephrolith R kidney. CT AP w con 12/03/21 [facility] - 2 mm nonobstructive R renal calculi. KUB 11/13/22 [facility] - No visible urinary tract calculi. Pt unable to provide urine sample today. Reviewed imaging with pt. Current stone likely too small to appreciate on XR. Clarified confusion of 9 mm stone noted on DOUG, CT on same day more accurate. Educated pt on dietary modifications and fluid intake for stone prevention. Stressed the importance of fluid intake. Follow up 18 mos with KUB or sooner if needed. Pt understands and agrees with plan. -High fluid intake. Lemonade is good, as it contains citrate which is a stone inhibitor. Overall the patient was seen in the emergency room last year for some flank pain and then had a repeat visit a couple weeks later. I had seen her in the interim between those visits. There was a confusing picture of a possible 9 mm stone which turned out to be only a [address] scan on the same day. She has had no kidney stone passage. Current KUB is negative for any obvious urolithiasis. The assumption is that she either passed the right-sided renal calculus or it simply too small to see. Regardless there is no large stone to treat. I recommended increasing the interval between visits to about 18 months and she agrees with the plan. Follow-up With When Contact Information EV[place] AGUAYO, Noe Bailey, URL [address] [address]- Additional Instructions: 18 mos KUB Patient Education Dietary Guidelines to Help Prevent Kidney Stones I, Sierra Jenkins, personally scribed for Dr. Loza on 11/17/2022 15:14:53. . Documentation recorded by the scribe, Sierra Jenkins, accurately reflects the services(s) I performed and decisions made by me. Authenticated by Dr. Loza on 11/17/2022 16:07:36. Portions of this record may have been created with voice recognition artificial intelligence software, specifically [employer], [employer] and or [employer]. Substitutions may have occurred due to the inherent limitations of voice recognition and artificial intelligence software. Problem List/Past Medical History Ongoing Arthritis Epididymitis Gout History of kidney stones Hypothyroid Kidney stones Historical Migraines Procedure/Surgical History ESWL - Extracorporeal shockwave lithotripsy for renal calculus (11/21/2020), ESWL - Extracorporeal shockwave lithotripsy for renal calculus (07/01/2017), Urodynamics (06/19/2015), Cystourethroscopy with dilation of urethral stricture (11/26/2014), Knee replacement (2007), Biopsy of breast (1987), Renal exploration (1967), Appendectomy, Breast surgery, Cornea (more content not included)... Normal [facility] Comment on above: Result Comment: Elec tronically Signed By: Noe LOZA MD\.br\Date and Time Signed: 11/17/22 16:08 EDT\.br\Electronically Co-Signed By: Sierra Jenkins\.br\Date and Time Co-Signed: 11/17/22 15:15 EDT RAD - MISCon 11-13-2022 RAD - MIS [id number] 0TIFF Normal [facility] Alanine aminotransferase [En zymatic activity/volume] in Serum or PlasmaOrdered By: Prasanth Bai on 09-02-2022 ALT [Catalytic activity/Vol] 7 U/L 7-52 [facility] Albumin [Mass/volume] in Ser um or Plasma by Bromocresol green (BCG) dye binding methoOrdered By: Prasanth Bai on 09-02-2022 Albumin BCG dye [Mass/Vol] 4.2 g/dL 3.5-5.7 [facility] Alkaline phosphatase [Enzyma tic activity/volume] in Serum or PlasmaOrdered By: Prasanth Bai on 09-02-2022 ALP [Catalytic activity/Vol] 83 U/L 34-104 [facility] Aspartate aminotransferase [ Enzymatic activity/volume] in Serum or PlasmaOrdered By: Prasanth Bai on 09-02-2022 AST [Catalytic activity/Vol] 13 U/L 13-39 [facility] Bilirubin.total [Mass/volume ] in Serum or PlasmaOrdered By: Prasanth Bai on 09-02-2022 Bilirubin [Mass/Vol] 0.5 mg/dL 0.3-1.0 [facility] Calcium [Mass/volume] in Ser um or PlasmaOrdered By: Prasanth Bai on 09-02-2022 Calcium [Mass/Vol] 9.5 mg/dL 8.6-10.3 [facility] Carbon dioxide, total [Moles /volume] in Serum or PlasmaOrdered By: Prasanth Gomez on 09-02-2022 CO2 [Moles/Vol] 35.0 mmol/L High 21.0-31.0 [facility] Chloride [Moles/volume] in S yvonne or PlasmaOrdered By: Prasanth Bai on 09-02-2022 Chloride [Moles/Vol] 99 mmol/L 98-107 [facility] Creatinine [Mass/volume] in Serum or PlasmaOrdered By: Prasanth Bai on 09-02-2022 Creatinine [Mass/Vol] 0.83 mg/dL 0.60-1.20 [facility] Globulin Calc (S) [Mass/Vol] Ordered By: Prasanth Bai on 09-02-2022 Globulin (S) [Mass/Vol] 2.2 g/dL [facility] Glucose [Mass/volume] in Ser um or PlasmaOrdered By: Prasanth Bai on 09-02-2022 Glucose [Mass/Vol] 77 mg/dL 70-100 [facility] Comment on above: ADA recommended refe rence rangeRandom Glucose Reference Range is dependent on time and content of last meal. Glucose of more than 200 mg/dL in a nonstressed, ambulatory subject supports the diagnosis of Diabetes Mellitus. No Panel InformationOrdered By: Prasanth Bai on 09-02-2022 Estimated GFR (CKD-EPI) > 60.0 mL/Min [facility] Creatinine Clearance (Chem 50.38 [facility] Potassium [Moles/volume] in Serum or PlasmaOrdered By: Prasanth Bai on 09-02-2022 Potassium [Moles/Vol] 4.2 mmol/L 3.5-5.1 [facility] Protein [Mass/volume] in Ser um or PlasmaOrdered By: Prasanth Bai on 09-02-2022 Protein [Mass/Vol] 6.4 g/dL 6.4-8.9 [facility] Serum or plasma albumin/glob ulin mass ratioOrdered By: Prasanth Bai on 09-02-2022 Albumin/Globulin [Mass ratio] 1.9 {ratio} [facility] Serum or plasma anion gap de terminationOrdered By: Prasanth Bai on 09-02-2022 Anion gap [Moles/Vol] 10.2 mmol/L 6.0-15.0 [facility] Sodium [Moles/volume] in Ser um or PlasmaOrdered By: Prasanth Bai on 09-02-2022 Sodium [Moles/Vol] 140 mmol/L 136-145 [facility] Urea nitrogen [Mass/volume] in Serum or PlasmaOrdered By: Prasanth Bai on 09-02-2022 Urea nitrogen [Mass/Vol] 20 mg/dL 09-01 [facility] ED Note-Physicianon 12-12-19 ED Note-Physician [id number] 0CD:127 Normal [facility] RAD - CT Reporton 12-11-2021 RAD - CT Report [id number] 0CD:127 Normal [facility] CULTURE URINEon 12-05-2021 CULTURE URINE Culture Observations : GREATER THAN TWO ORGANISMS PRESENT. PLEASE RESUBMIT CLEAN CATCH MID-STREAM URINE IF CLINICALLY INDICATED. Normal [facility] Comment on above: Performed By: #### U RCX #### [facility] [address] [place] [address] Dr. Nataly Lara CBC AUTO DIFFon 12-03-2021 BASO # 0.1 103/ul Normal 0.0-0.1 [facility] Comment on above: Performed By: #### C BC #### [facility] [address] [place] [address] Dr. Nataly Lara Basophils/100 WBC (Bld) 0.5 % Normal 0.2-2.0 [facility] Comment on above: Performed By: #### C BC #### [facility] [address] [place] [address] Dr. Nataly Lara EO # 0.2 103/ul Normal 0.0-0.7 [facility] Comment on above: Performed By: #### C BC #### [facility] [address] [place] [address] Dr. Nataly Lara Eosinophils/100 WBC (Bld) 1.9 % Normal 0.9-7.0 [facility] Comment on above: Performed By: #### C BC #### [facility] [address] [place] [address] Dr. Nataly Lara Erythrocyte distribution width (RBC) [Ratio] 12.5 % Normal 11.0-15.0 [facility] Comment on above: Performed By: #### C BC #### [facility] [address] [place] [address] Dr. Nataly Lara Hematocrit (Bld) [Volume fraction] 41.8 % Normal 36.0-48.0 [facility] Comment on above: Performed By: #### C BC #### [facility] [address] [place] [address] Dr. Nataly Lara Hemoglobin (Bld) [Mass/Vol] 13.7 g/dL Normal 12.0-16.0 [facility] Comment on above: Performed By: #### C BC #### [facility] [address] [place] [address] Dr. Nataly Lara IG # 0.04 10e3/ul Critically high 0.00-0.03 [facility] Comment on above: Performed By: #### C BC #### [facility] [address] [place] [address] Dr. Nataly Lara IG % 0.3 % Normal 0.0-0.5 [facility] Comment on above: Performed By: #### C BC #### [facility] [address] [place] [address] Dr. Nataly Lara LYMPH # 1.4 103/ul Normal 1.2-3.8 [facility] Comment on above: Performed By: #### C BC #### [facility] [address] [place] [address] Dr. Nataly Lara Lymphocytes/100 WBC (Bld) 11.4 % Critically low 20.5-60.0 [facility] Comment on above: Performed By: #### C BC #### [facility] [address] [place] [address] Dr. Nataly Lara MANUAL DIFF REQ NO Normal [facility] Comment on above: Performed By: #### C BC #### [facility] [address] [place] [address] Dr. Nataly Lara MCH (RBC) [Entitic mass] 31.2 pg Normal 26.7-34.0 [facility] Comment on above: Performed By: #### C BC #### [facility] [address] [place] [address] Dr. Nataly Lara MCHC (RBC) [Mass/Vol] 32.8 g/dL Normal 29.9-35.2 [facility] Comment on above: Performed By: #### C BC #### [facility] [address] [address] [address] Nataly Lara MCV (RBC) [Entitic vol] 95.2 fL Normal 81.0-99.0 [facility] Comment on above: Performed By: #### C BC #### [facility] [address] [address] [address] Nataly Lara MONO # 0.8 103/ul Normal 0.3-0.8 [facility] Comment on above: Performed By: #### C BC #### [facility] [address] [place] [address] Dr. Nataly Lara Monocytes/100 WBC (Bld) 7.0 % Normal 1.7-12.0 [facility] Comment on above: Performed By: #### C BC #### [facility] [address] [place] [address] Dr. Nataly Lara NEUT # 9.5 103/ul Critically high 1.4-6.5 [facility] Comment on above: Performed By: #### C BC #### [facility] [address] [place] [address] Dr. Nataly Lara Neutrophils/100 WBC (Bld) 78.9 % Critically high 43.0-75.0 [facility] Comment on above: Performed By: #### C BC #### [facility] [address] [place] [address] Dr. Nataly Lara Platelet mean volume (Bld) [Entitic vol] 9.5 fL Normal 9.5-13.5 [facility] Comment on above: Performed By: #### C BC #### [facility] [address] [place] [address] Dr. Nataly Lara PLT 319 103/ul Normal 150-450 [facility] Comment on above: Performed By: #### C BC #### [facility] [address] [place] [address] Dr. Nataly Lara RBC 4.39 106/ul Normal 4.20-5.40 [facility] Comment on above: Performed By: #### C BC #### [facility] [address] [address] [address] Nataly Lara WBC 12.0 103/ul Critically high 4.0-11.0 [facility] Comment on above: Performed By: #### C BC #### [facility] [address] [address] [address] Nataly Lara ER URINE PROFILEon 2 Bilirubin Ql (U) Negative Normal NEGATIVE [facility] Comment on above: Performed By: #### U MICRO, ERUR #### [facility] [address] [address] [address] Nataly Lara Clarity (U) CLEAR Normal CLEAR The [facility] Comment on above: Performed By: #### U MICRO, ERUR #### [facility] [address] [place] [address] Dr. Nataly Lara Color (U) LT. YELLOW Normal YELLOW The [facility] Comment on above: Performed By: #### U MICRO, ERUR #### [facility] [address] [place] [address] Dr. Nataly Lara ERUAHD A micrscopic examination will be performed if indicated. Normal The [facility] Comment on above: Performed By: #### U MICRO, ERUR #### [facility] [address] [address] [address] Nataly Lara Glucose Ql (U) Negative Normal NEGATIVE The [facility] Comment on above: Performed By: #### U MICRO, ERUR #### [facility] [address] [address] [address] Nataly Lara Hemoglobin Ql (U) LARGE Abnormal NEGATIVE The [facility] Comment on above: Performed By: #### U MICRO, ERUR #### [facility] [address] [place] [address] Dr. Nataly Lara Ketones Ql (U) Negative Normal NEGATIVE The [facility] Comment on above: Performed By: #### U MICRO, ERUR #### [facility] [address] [place] [address] Dr. Nataly Lara LEUKOCYTES TRACE Abnormal NEGATIVE The [facility] Comment on above: Performed By: #### U MICRO, ERUR #### [facility] [address] [address] [address] Nataly Lara Nitrite Ql (U) Negative Normal NEGATIVE The [facility] Comment on above: Performed By: #### U MICRO, ERUR #### [facility] [address] [address] [address] Nataly Lara pH (U) 6.0 [pH] Normal 5-9 [facility] Comment on above: Performed By: #### U MICRO, ERUR #### [facility] [address] [address] [address] Nataly Lara SPEC GRAVITY <=1.005 Abnormal 1.005-<=1.02 5 [facility] Comment on above: Performed By: #### U MICRO, ERUR #### [facility] [address] [place] [address] Dr. Nataly Lara UA PROTEIN Negative Normal NEGATIVE/ TRACE The [facility] Comment on above: Performed By: #### U MICRO, ERUR #### [facility] [address] [address] [address] Nataly Lara UR MICRO IND INDICATED Normal [facility] Comment on above: Performed By: #### U MICRO, ERUR #### [facility] [address] [place] [address] Dr. Nataly Lara Urobilinogen Qn (U) 0.2 {June'U}/dL Normal 0.2 - 1. 0 [facility] Comment on above: Performed By: #### U MICRO, ERUR #### [facility] [address] [address] [address] Nataly Lara PROF 14(COMP METB)on 022 Albumin [Mass/Vol] 3.8 g/dL Normal 3.4-5.0 [facility] Comment on above: Performed By: #### C MP ####[facility] [address] [address]Dr. Nataly Lara Albumin/Globulin [Mass ratio] 1.1 {ratio} Normal [facility] Comment on above: Performed By: #### C MP ####[facility] [address] [address]Dr. Nataly Lara ALP [Catalytic activity/Vol] 94 U/L Normal 46-116 [facility] Comment on above: Performed By: #### C MP ####[facility] [address] [address]Dr. Nataly Lara ALT [Catalytic activity/Vol] 13 U/L Critically low 14-59 [facility] Comment on above: Performed By: #### C MP ####[facility] [address] [address]Dr. Nataly Lara Anion gap [Moles/Vol] 5.6 mmol/L Normal [facility] Comment on above: Performed By: #### C MP ####[facility] [address] [place], [place] [address]Dr. Nataly Lara AST [Catalytic activity/Vol] 13 U/L Critically low 15-37 [facility] Comment on above: Performed By: #### C MP ####[facility] [address] [place], [place] [address]Dr. Nataly Lara Bilirubin [Mass/Vol] 0.3 mg/dL Normal 0.2-1.0 [facility] Comment on above: Performed By: #### C MP ####[facility] [address] [place], [place] [address]Dr. Nataly Lara Calcium [Mass/Vol] 9.6 mg/dL Normal 8.5-10.1 [facility] Comment on above: Performed By: #### C MP ####[facility] [address] [place], [place] [address]Dr. Nataly Lara Chloride [Moles/Vol] 100 mmol/L Normal 98-107 The [facility] Comment on above: Performed By: #### C MP ####[facility] [address] [place], [place] [address]Dr. Nataly Lara CO2 [Moles/Vol] 34.4 mmol/L Critically high 21.0-32.0 The [facility] Comment on above: Performed By: #### C MP ####[facility] [address] [id number]. Nataly Lara Creatinine [Mass/Vol] 0.91 mg/dL Normal 0.55-1.02 [facility] Comment on above: Performed By: #### C MP ####[facility] [address] [place], [place] [address]Ty. Nataly Lara EGFR-AF CAMBODIAN >60 Normal >=60 [facility] Comment on above: Performed By: #### C MP ####[facility] [address] [address]Dr. Nataly Lara EGFR-NON AF CAMBODIAN 60 mL/min/1.73m2 Normal >=60 [facility] Comment on above: Performed By: #### C MP ####[facility] [address] [id number]. Nataly Lara Globulin (S) [Mass/Vol] 3.5 g/dL Normal [facility] Comment on above: Performed By: #### C MP ####[facility] [address] [address]Dr. Nataly Lara Glucose [Mass/Vol] 80 mg/dL Normal 74-106 [facility] Comment on above: Performed By: #### C MP ####[facility] [address] [id number]. Nataly Lara Potassium [Moles/Vol] 3.0 mmol/L Critically low 3.5-5.1 The [facility] Comment on above: Performed By: #### C MP ####[facility] [address] [id number]. Nataly Lara Protein [Mass/Vol] 7.3 g/dL Normal 6.4-8.2 The [facility] Comment on above: Performed By: #### C MP ####[facility] [address] [id number]. Nataly Lara Sodium [Moles/Vol] 137 mmol/L Normal 136-145 [facility] Comment on above: Performed By: #### C MP ####[facility] [address] [id number]. Nataly Lara Urea nitrogen [Mass/Vol] 18.0 mg/dL Normal 7.0-18.0 The [facility] Comment on above: Performed By: #### C MP ####[facility] [address] [id number]. Nataly Lara Urea nitrogen/Creatinine [Mass ratio] 19.8 mg/mg Normal The [facility] Comment on above: Performed By: #### C MP ####[facility] [address] [id number]. Nataly Lara URINE MICROSCOPIC ONLYon BACTERIA TRACE Abnormal NONE SEEN The [facility] Comment on above: Performed By: #### U MICRO, ERUR #### [facility] [address] [address] [address] Nataly Lara Bacteria identified Cx Nom (U) INDICATED Normal The [facility] Comment on above: Performed By: #### U MICRO, ERUR #### [facility] [address] [address] [address] Nataly Lara CAST NONE SEEN Normal NONE SEEN The [facility] Comment on above: Performed By: #### U MICRO, ERUR #### [facility] [address] [address] [address] Nataly Lara Crystals LM Nom (Urine sed) NONE SEEN Normal NONE SEEN The [facility] Comment on above: Performed By: #### U MICRO, ERUR #### [facility] [address] [address] [address] Nataly Lara Epithelial cells LM Ql (Urine sed) MODERATE Abnormal NONE SEEN /RARE The [facility] Comment on above: Performed By: #### U MICRO, ERUR #### [facility] [address] [address] [address] Nataly Lara MUCOUS NONE SEEN Normal NONE SEEN The [facility] Comment on above: Performed By: #### U MICRO, ERUR #### [facility] [address] [address] [address] Nataly Lara RBC 10-20 Abnormal 0-2 [facility] Comment on above: Performed By: #### U MICRO, ERUR #### [facility] [address] [place], [place] [address] Dr. Nataly Lara WBC 10- Abnormal NONE SEEN The [facility] Comment on above: Performed By: #### U MICRO, ERUR #### [facility] [address] [place], [place] [address] Dr. Nataly Lara US KIDNEYSon 12-03-2021 US KIDNEYS EXAMINATION: US KIDNEYS HISTORY: Right flank pain COMPARISON: No relevant comparison available. TECHNIQUE: Ultrasound examination was performed of the bladder. FINDINGS: Right Kidney: Normal in size and echotexture. Cortical anechoic echogenicity measuring 3.3 cm, simple cyst. Mild pelviectasis. 9 mm nonobstructing nephrolith. No solid cortical mass. The cortex measures 1.5 cm Height: 4.8 cm Length: 10.3 cm Width: 4.7 cm Left Kidney: Normal in size, contour and echotexture. No solid cortical mass, hydronephrosis or obstructing nephrolithiasis. The cortex measures 1.4 cm Height: 5.6 cm Length: 9.6 cm Width: 4.6 cm Multiple echogenic foci identified within the urinary bladder measuring up to 8 mm. The right ureteral jet was visualized. The left chest was not visualized IMPRESSION: Mild right pelviectasis of unknown etiology. No focal obstruction is observed Visualization of the right ureteral jet Electronically authenticated by: AUNDREA IVERSON Date: 2021-12-03 15:50 Normal The [facility] Ambulatory Visit Summaryon 1 Ambulatory Visit Summary FANTASMA LEWIS :1940 Visit Date:11/18/2021 Ambulatory Visit Instructions Your Diagnosis Kidney stones Tests Performed Urnls Dip Stick Auto w/o Microscopy POC 19179 XR Abdomen 1 View -- Results Pending -- Please visit your patient portal for your results or contact your primary care physician. Your Care Team Attending Physician - Noe LOZA MD Primary Care Physician - RONEY LEROY DO This Is Your Medications List Contact prescribing physician if questions or concerns alendronate (Fosamax 70 mg oral tablet) alendronate (alendronate 70 mg Tab) anastrozole (anastrozole 1 mg Tab) cyanocobalamin (Vitamin B-12) duloxetine (Cymbalta) ergocalciferol (Vitamin D) hydrochlorothiazide (hydrochlorothiazide 50 mg Tab) levothyroxine (Synthroid) meloxicam (meloxicam 15 mg oral tablet) omeprazole (Prilosec) prednisoLONE ophthalmic (prednisoLONE Opth acetate 1% Susp 5 mL) verapamil (verapamil 240 mg ER Tab) Procedures Performed ESWL - Extracorporeal shockwave lithotripsy for renal calculus (11/21/2020), ESWL - Extracorporeal shockwave lithotripsy for renal calculus (07/01/2017), Urodynamics (06/19/2015), Cystourethroscopy with dilation of urethral stricture (11/26/2014), Knee replacement (2007), Biopsy of breast (1987), Renal exploration (1967), Appendectomy, Breast surgery, Corneal transplant, Procedure on back, Total knee arthroplasty, Total knee arthroplasty. Discharge Vitals Heart Rate (Peripheral) 72 Blood Pressure 145/71 Height 160 cm Height 63 in Weight 77.0 kg Weight 169.4 lb BMI 30.08 What to do next Scheduled Follow-Up Appointments Wednesday 11:00 AM EDT With: EVENS AGUAYO, Noe Bailey Where: [facility] Patient Educationon 11-19-19 Patient Education Urology Dietary Guidelines to Help Prevent Kidney Stones Kidney stones are deposits of minerals and salts that form inside your kidneys. Your risk of developing kidney stones may be greater depending on your diet, your lifestyle, the medicines you take, and whether you have certain medical conditions. Most people can reduce their chances of developing kidney stones by following the instructions below. Depending on your overall health and the type of kidney stones you tend to develop, your dietitian may give you more specific instructions. What are tips for following this plan? Reading food labels ? Choose foods with no salt added or low-salt labels. Limit your sodium intake to less than 1500 mg per day. ? Choose foods with calcium for each meal and snack. Try to eat about 300 mg of calcium at each meal. Foods that contain 200?500 mg of calcium per serving include: ? 8 oz (237 ml) of milk, fortified nondairy milk, and fortified fruit juice. ? 8 oz (237 ml) of kefir, yogurt, and soy yogurt. ? 4 oz (118 ml) of tofu. ? 1 oz of cheese. ? 1 cup (300 g) of dried figs. ? 1 cup (91 g) of cooked broccoli. ? 1?3 oz can of sardines or mackerel. ? Most people need 1000 to 1500 mg of calcium each day. Talk to your dietitian about how much calcium is recommended for you. Shopping ? Buy plenty of fresh fruits and vegetables. Most people do not need to avoid fruits and vegetables, even if they contain nutrients that may contribute to kidney stones. ? When shopping for convenience foods, choose: ? Whole pieces of fruit. ? Premade salads with dressing on the side. ? Low-fat fruit and yogurt smoothies. ? Avoid buying frozen meals or prepared deli foods. ? Look for foods with live cultures, such as yogurt and kefir. Cooking ? Do not add salt to food when cooking. Place a salt shaker on the table and allow each person to add his or her own salt to taste. ? Use vegetable protein, such as beans, textured vegetable protein (TVP), or tofu instead of meat in pasta, casseroles, and soups. Meal planning ? Eat less salt, if told by your dietitian. To do this: ? Avoid eating processed or premade food. ? Avoid eating fast food. ? Eat less animal protein, including cheese, meat, poultry, or fish, if told by your dietitian. To do this: ? Limit the number of times you have meat, poultry, fish, or cheese each week. Eat a diet free of meat at least 2 days a week. ? Eat only one serving each day of meat, poultry, fish, or seafood. ? When you prepare animal protein, cut pieces into small portion sizes. For most meat and fish, one serving is about the size of one deck of cards. ? Eat at least 5 servings of fresh fruits and vegetables each day. To do this: ? Keep fruits and vegetables on hand for snacks. ? Eat 1 piece of fruit or a handful of berries with breakfast. ? Have a salad and fruit at lunch. ? Have two kinds of vegetables at dinner. ? Limit foods that are high in a substance called oxalate. These include: ? Spinach. ? Rhubarb. ? Beets. ? Potato chips and lao fries. ? Nuts. ? If you regularly take a diuretic medicine, make sure to eat at least 1?2 fruits or vegetables high in potassium each day. These include: ? Avocado. ? Banana. ? Arminto, prune, carrot, or tomato juice. ? Baked potato. ? Cabbage. ? Beans and split peas. General instructions ? Drink enough fluid to keep your urine clear or pale yellow. This is the most important thing you can do. ? Talk to your health care provider and dietitian about taking daily supplements. Depending on your health and the cause of your kidney stones, you may be advised: ? Not to take supplements with vitamin C. ? To take a calcium supplement. ? To take a daily probiotic supplement. ? To take other supplements such as magnesium, fish oil, or vitamin B6. ? Take all medicines and supplements as told by your health care provider. ? Limit alcohol intake to no more than 1 drink a day for non women and 2 drinks a day for men. One drink equals 12 oz of beer, 5 oz of wine, or 1? oz of hard liquor. ? Lose weight if told by your health care provider. Work with your dietitian to find strategies and an eating plan that works best for you. What foods are not recommended? Limit your intake of the following foods, or as told by your dietitian. Talk to your dietitian about specific foods you should avoid based on the type of kidney stones and your overall health. Grains Breads. Bagels. Rolls. Baked goods. Salted crackers. Cereal. Pasta. Vegetables Spinach. Rhubarb. Beets. Canned vegetables. Pickles. Olives. Meats and other protein foods Nuts. Nut butters. Large portions of meat, poultry, or fish. Salted or cured meats. Deli meats. Hot dogs. Sausages. Dairy Cheese. Beverages Regular soft drinks. Regular vegetable juice. Seasonings and other foods Seasoning blends with salt. Chevy mock (more content not included)... Normal [facility] Urology Office/Clinic Noteon 11-18-2021 Urology Office/Clinic Note Chief Complaint Hospital follow up [facility] Staff Hospital follow from [facility] on 11/09/21 due to pt falling and had back pain and shoulder pain. KUB 11/14/21 shows right punctate nephrolithiasis, CT SCAN done 11/09/21 2mm nonobstructive right renal calculi. Previous DX: HX of kidney stones. S/P ESWL 11/21/20 Dysuria: denies pain or burning Incomplete bladder emptying: denies Hematuria: denies visible blood Frequency: denies Urgency: denies Nocturia: moderate intermittent every 2 hours Stream: denies hesitancy, denies weak stream Leaking: denies Post void dripping: denies Wearing pads/ Depends: yes wears pads at night Urge incontinence: sometimes Stress incontinence: denies Incontinence without Sensory Awareness: denies Abdominal pain: yes lower abdomen pain w/vomiting and diarrhea Flank pain: yes left sided pain when she lays down Sexual complaints: denies History of Present Illness Tests Reviewed: Reviewed UA. I have reviewed and verified the staff HPI to be accurate for this encounter. I have reviewed the previous health record information and history for this patient from Dr. Loza There have been no associated fever, chills, flank pain, or blood in the urine. Denies any urinary infections since last encounter. Review of Systems PHQ Score Initial Depression Screen Score: 0 ROS - Provider Constitutional: denies weight loss, denies hot flashes. Eyes: denies eye problems. Gastrointestinal: denies nausea, denies vomiting. Cardiovascular: denies chest pain or angina. Integumentary: no dryness Musculoskeletal: denies musculoskeletal symptoms. ENMT: denies otolaryngeal symptoms. Respiratory: no shortness of breath. Heme/Lymph: denies easy bleeding tendency, denies easy bruising tendency. Psychiatric: no confusion, no anxiety. Genitourinary: denies vaginal discharge, denies incontinence, denies dysuria, denies hematuria, denies urinary frequency, denies amenorrhea, denies menorrhagia, denies abnormal bleeding, denies pelvic pain, denies genital sores, and denies decreased libido. Physical Exam Vitals & Measurements HR: 72(Peripheral) BP: 145/71 HT: 63 in HT: 160 cm WT: 77.0 kg WT: 169.4 lb BMI: 30.08 General Appearance: alert , no acute distress, well nourished, well developed female. Genitourinary: bladder nonpalpable, no flank pain. Assessment/Plan 1. Kidney stones (N20.0: Calculus of kidney) - UA today is clear/neg no signs of any blood or infections, pt denies any infections since last visit. - S/P ESWL 11/21/20 - pt went to [facility] ER 11/09/21 due to pt falling and had back pain and shoulder pain - KUB 11/14/21 shows right punctate nephrolithiasis - CT SCAN done 11/09/21 2mm nonobstructive right renal calculi - Explained to pt that the size of her stones does not require surgical procedure at this time - Pt stated she like to drink coffee, advised her to drink water after the coffee, as the caffeine will cause dehydration. - advised pt that she need to drink plenty of water to help prevent making kidney stones - will continue to monitor with KUB in a year, pt agrees with this plan, and is aware that if she encounters any stone complications prior to next appointment to give our office a call. She is status post fall and does have the injury to the left shoulder, left hip and she actually chipped a tooth. She actually feels much better and will be using a walker and/or cane into the future. Follow-up With When Contact Information EVENS AGUAYO, Noe Bailey, URL Within [address] [place] [id number]- Additional Instructions: W/ KUB Patient Education Dietary Guidelines to Help Prevent Kidney Stones Norah Castillo, personally scribed for Dr. Loza on 11/18/2021 11:02:14. . Documentation recorded by the scribe, Norah Le, accurately reflects the services(s) I performed and decisions made by me. Authenticated by Dr. Loza on 11/18/2021 11:05:57. Problem List/Past Medical History Ongoing Arthritis Gout History of kidney stones Hypothyroid Kidney stones Historical Migraines Procedure/Surgical History ESWL - Extracorporeal shockwave lithotripsy for renal calculus (11/21/2020), ESWL - Extracorporeal shockwave lithotripsy for renal calculus (07/01/2017), Urodynamics (06/19/2015), Cystourethroscopy with dilation of urethral stricture (11/26/2014), Knee replacement (2007), Biopsy of breast (1987), Renal exploration (1967), Appendectomy, Breast surgery, Corneal transplant, Procedure on back, Total knee arthroplasty, Total knee arthroplasty. Medications alendronate 70 mg Tab, 70 mg= 1 tab(s), Oral, qWeek anastrozole 1 mg Tab, 1 mg= 1 tab(s), Oral, Daily Cymbalta, 60 mg, Oral, Daily Fosamax 70 mg oral tablet, 70 mg= 1 tab(s), Oral, qWeek hydrochlorothiazide 50 mg Tab, 50 mg= 1 tab(s), Oral, Daily meloxicam 15 mg oral tablet, 15 mg= 1 tab(s), Oral, Daily (more content not included)... Normal [facility] Comment on above: Result Comment: Elec tronically Signed By: Noe LOZA MD\.br\Date and Time Signed: 11/18/21 11:07 EDT\.br\Electronically Co-Signed By: Norah Le\.br\Date and Time Co-Signed: 11/18/21 11:02 EDT XR KUB 1 VIEWon 11-14-2021 XR KUB 1 VIEW EXAMINATION: XR KUB 1 VIEW HISTORY: Kidney stone COMPARISON: CT exam FINDINGS: KIDNEY/URETER - RIGHT: Punctate nephrolithiasis KIDNEY/URETER - LEFT: Normal PELVIS: No visible ureteral calcifications. Any visible calcifications favor phleboliths. BOWEL: No abnormal dilation or deviation. 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 No abnormal gaseous collections. IMPRESSION: Right punctate nephrolithiasis Electronically authenticated by: AUNDREA IVERSON Date: 2021-11-14 13:29 Normal [facility] CBC AUTO DIFFon 11-09-2021 BASO # 0.0 103/ul Normal 0.0-0.1 [facility] Comment on above: Performed By: #### C BC ####[facility] [address] [place], [place] [address]Sn. Nataly Lara Basophils/100 WBC (Bld) 0.4 % Normal 0.2-2.0 [facility] Comment on above: Performed By: #### C BC ####[facility] [address] [place] [address]Dr. Nataly Lara EO # 0.4 103/ul Normal 0.0-0.7 [facility] Comment on above: Performed By: #### C BC ####[facility] [address] [place], [place] [address]Dr. Nataly Lara Eosinophils/100 WBC (Bld) 5.2 % Normal 0.9-7.0 The [facility] Comment on above: Performed By: #### C BC ####[facility] [address] [place], [place] [address]Dr. Nataly Lara Erythrocyte distribution width (RBC) [Ratio] 12.8 % Normal 11.0-15.0 [facility] Comment on above: Performed By: #### C BC ####[facility] [address] [place], [place] [address]Dr. Nataly Lara Hematocrit (Bld) [Volume fraction] 41.5 % Normal 36.0-48.0 [facility] Comment on above: Performed By: #### C BC ####[facility] [address] [place], [place] [address]Dr. Nataly Lara Hemoglobin (Bld) [Mass/Vol] 13.2 g/dL Normal 12.0-16.0 [facility] Comment on above: Performed By: #### C BC ####[facility] [address] [place], [place] [address]Dr. Nataly Lara IG # 0.02 10e3/ul Normal 0.00-0.03 The [facility] Comment on above: Performed By: #### C BC ####[facility] [address] [place], [place] [address]Dr. Nataly Lara IG % 0.2 % Normal 0.0-0.5 The [facility] Comment on above: Performed By: #### C BC ####[facility] [address] [place], [place] [address]Dr. Machelletamanna Lara LYMPH # 1.5 103/ul Normal 1.2-3.8 The [facility] Comment on above: Performed By: #### C BC ####[facility] [address] [place] [id number]. Nataly Marco Lymphocytes/100 WBC (Bld) 18.3 % Critically low 20.5-60.0 [facility] Comment on above: Performed By: #### C BC ####[facility] [address] [place] [id number]. Nataly Lara MANUAL DIFF REQ NO Normal [facility] Comment on above: Performed By: #### C BC ####[facility] [address] [place] [id number]. Machelletamanna Lara MCH (RBC) [Entitic mass] 31.1 pg Normal 26.7-34.0 [facility] Comment on above: Performed By: #### C BC ####[facility] [address] [place], [place] [address]Dr. Nataly Lara MCHC (RBC) [Mass/Vol] 31.8 g/dL Normal 29.9-35.2 [facility] Comment on above: Performed By: #### C BC ####[facility] [address] [place], [place] [id number]. Machelletamanna Lara MCV (RBC) [Entitic vol] 97.9 fL Normal 81.0-99.0 [facility] Comment on above: Performed By: #### C BC ####[facility] [address] [place], [place] [id number]. Nataly Lara MONO # 0.6 103/ul Normal 0.3-0.8 [facility] Comment on above: Performed By: #### C BC ####[facility] [address] [place], [place] [id number]. Nataly Lara Monocytes/100 WBC (Bld) 6.9 % Normal 1.7-12.0 [facility] Comment on above: Performed By: #### C BC ####[facility] [address] [place], [place] [id number]. Nataly Lara NEUT # 5.7 103/ul Normal 1.4-6.5 [facility] Comment on above: Performed By: #### C BC ####[facility] [address] [place] [id number]. Nataly Lara Neutrophils/100 WBC (Bld) 69.0 % Normal 43.0-75.0 [facility] Comment on above: Performed By: #### C BC ####[facility] [address] [place] [id number]. Nataly Lara Platelet mean volume (Bld) [Entitic vol] 9.5 fL Normal 9.5-13.5 [facility] Comment on above: Performed By: #### C BC ####[facility] [address] [place] [id number]. Nataly Lara PLT 267 103/ul Normal 150-450 [facility] Comment on above: Performed By: #### C BC ####[facility] [address] [place] [id number]. Nataly Lara RBC 4.24 106/ul Normal 4.20-5.40 The [facility] Comment on above: Performed By: #### C BC ####[facility] [address] [place] [id number]. Nataly Lara WBC 8.2 103/ul Normal 4.0-11.0 [facility] Comment on above: Performed By: #### C BC ####[facility] [address] [place] [id number]. Nataly Lara CT CHEST W CONon 11-09-2021 CT CHEST W CON EXAM: CT ABD/PELV W CON, CT CHEST W CON INDICATION: Mid back soreness and left hand pain, fall yesterday. TECHNIQUE: CT of the chest abdomen and pelvis with contrast. Coronal and sagittal reformats obtained. Dose reduction technique was used including one or more of the following: automated exposure control, adjustment of mA and kV according to patient size, and/or iterative reconstruction. COMPARISON: CT angiogram of the chest 05/15/2017. CT abdomen and pelvis 05/14/2017. FINDINGS: CHEST SUPPORT DEVICES: None seen. CARDIOMEDIASTINAL TRAUMA: No evidence of aortic injury. No pericardial effusion or mediastinal hematoma. PLEUROPULMONARY TRAUMA: No pneumothorax or pulmonary contusion. MUSCULOSKELETAL TRAUMA: No fractures of the ribs or sternum identified. No CT evidence of significant soft tissue injury. OTHER: No acute or suspicious non-traumatic findings. ABDOMEN/PELVIS SUPPORT DEVICES: None seen. VASCULAR TRAUMA: No active extravasation or evidence of large vessel dissection. VISCERAL TRAUMA: No pneumoperitoneum or hemoperitoneum. No evidence of injury to the solid organs, bladder, bowel, or mesentery. MUSCULOSKELETAL TRAUMA: No pelvic fractures or diastasis identified. No CT evidence of significant soft tissue injury. OTHER: Suspect gallbladder fundal adenomyomatosis. Simple bilateral renal cysts. 2 mm nonobstructive right renal calculi. THORACIC SPINE No acute fractures or malalignment. LUMBAR SPINE No acute fractures or malalignment. IMPRESSION: 1. No acute traumatic findings. INCIDENTAL FINDINGS: 1. 2 mm nonobstructive right renal calculi. Electronically authenticated by: TASHI ESCOBAR Date: 2021-11-09 15:[address] [facility] [address] CSPINE WO CONon CT CSPINE WO CON EXAMINATION: CT CSPI NE WO CON, 11/09/2021 10:41 AM PDT HISTORY: UNSPECIFIED INJURY OF HEAD, INITIAL ENCOUNTER TECHNIQUE: CT cervical spine without contrast. Coronal and sagittal reformats obtained. Dose reduction technique was used including one or more of the following: automated exposure control, iterative reconstruction technique, or adjustment of mA and kV according to patient size. COMPARISON: CT cervical spine 04/04/2020. FINDINGS: Mild C4-C5 anterolisthesis, unchanged from prior. No associated fracture, facet joint subluxation or prevertebral edema. No prevertebral swelling. There is age-expected degenerative disc disease and facet arthrosis. No CT evidence of a significant central or foraminal stenosis. No acute or suspicious findings in the included soft tissues of the neck or lung apices. IMPRESSION: 1. No evidence of acute cervical spine injury. INCIDENTAL FINDINGS: 1. None requiring specific follow-up imaging. Electronically authenticated by: TASHI ESCOBAR Date: 2021-11-09 15:[address] [facility] [address] FACIAL BONES WO CONon CT FACIAL BONES WO CON EXAMINATION: CT F ACIAL BONES WO CON HISTORY: UNSPECIFIED INJURY OF HEAD, INITIAL ENCOUNTER COMPARISON: CT facial bone 04/04/2020. TECHNIQUE: CT examination of the facial bones without IV contrast. Coronal and sagittal reformations were performed. Dose reduction techniques were achieved by using automated exposure control and/or adjustment of mA and/or kV according to patient size and/or use of iterative reconstruction technique. FINDINGS: There is a stable probable remote fracture of the left anterior nasal bone but there is no acute facial bone fracture. There is mild mucosal thickening in the bilateral maxillary sinuses, sphenoid and ethmoid sinuses consistent with chronic sinusitis. IMPRESSION: 1. No acute facial bone fracture. 2. Mild chronic sinusitis. Electronically authenticated by: ISIAH ALVARES Date: 2021-11-09 16:14 Normal [facility] CT HEAD WO CONon 11-09-2021 CT HEAD WO CON EXAMINATION: CT HEAD WO CON HISTORY: UNSPECIFIED INJURY OF HEAD, INITIAL ENCOUNTER COMPARISON: CT of the head from 04/04/2020 TECHNIQUE: CT examination of the head without IV contrast. Dose reduction techniques were achieved by using automated exposure control and/or adjustment of mA and/or kV according to patient size and/or use of iterative reconstruction technique. FINDINGS: The ventricles, sulci, and remaining CSF containing spaces maintain age-appropriate volume and symmetry. No herniation or hydrocephalus. The guerrero matter/white matter differentiation is maintained throughout. No CT evidence of contemporary infarction. No acute intracranial hemorrhage or parenchymal mass. The calvarium and skull base are intact. Small mucous retention cyst at the left maxillary sinus. Mild mucosal thickening of a left ethmoid air cell anteriorly. IMPRESSION: 1. No acute intracranial abnormality. Electronically authenticated by: SELWYN COATES Date: 2021-11-09 15:42 Normal [facility] PROF CHEM 8 (BAS METB)on Anion gap [Moles/Vol] 10.6 mmol/L Normal [facility] Comment on above: Performed By: #### B MP ####[facility] [address] [place] [id number] Lara Calcium [Mass/Vol] 9.5 mg/dL Normal 8.5-10.1 [facility] Comment on above: Performed By: #### B MP ####[facility] [address] [place], [place] [address]LzConnie Lara Chloride [Moles/Vol] 102 mmol/L Normal 98-107 [facility] Comment on above: Performed By: #### B MP ####[facility] [address] [place] [address]Dr. Nataly Lara CO2 [Moles/Vol] 33.4 mmol/L Critically high 21.0-32.0 [facility] Comment on above: Performed By: #### B MP ####[facility] [address] [place] [address]Dr. Nataly Lara Creatinine [Mass/Vol] 0.87 mg/dL Normal 0.55-1.02 The [facility] Comment on above: Performed By: #### B MP ####[facility] [address] [place], [place] [address]Dr. Machelletamanna Marco EGFR-AF CAMBODIAN >60 Normal >=60 [facility] Comment on above: Performed By: #### B MP ####[facility] [address] [place], [place] [address]Dr. Nataly Lara EGFR-NON AF CAMBODIAN >60 Normal >=60 [facility] Comment on above: Performed By: #### B MP ####[facility] [address] [place], [place] [address]Dr. Nataly Lara Glucose [Mass/Vol] 87 mg/dL Normal 74-106 [facility] Comment on above: Performed By: #### B MP ####[facility] [address] [place], [place] [address]Dr. Machelletamanna Marco Potassium [Moles/Vol] 4.0 mmol/L Normal 3.5-5.1 The [facility] Comment on above: Performed By: #### B MP ####[facility] [address] [place], [place] [address]Dr. Machelletamanna Marco Sodium [Moles/Vol] 142 mmol/L Normal 136-145 [facility] Comment on above: Performed By: #### B MP ####[facility] [address] [place] [address]Dr. Nataly Lara Urea nitrogen [Mass/Vol] 16.0 mg/dL Normal 7.0-18.0 [facility] Comment on above: Performed By: #### B MP ####[facility] [address] [place], [place] [address]Ag. Nataly Lara Urea nitrogen/Creatinine [Mass ratio] 18.4 mg/mg Normal [facility] Comment on above: Performed By: #### B MP ####[facility] [address] [place], [place] [address]Mn. Nataly Lara XR KNEE POST OP 3V AP/LAT/ME RCHANT BILATERALon 08-13-2021 [facility] No Panel Information [facility] Vital Signs Date Time Vital Sign Value Performing Clinician Facility 09-08-2023 11:04-0400 Body temperature 98 [degF] DO Roney Leroy Work Phone: [phone])[phone] [place] [address] 09-08-2023 11:04-0400 Diastolic blood pressure 78 mm[Hg] DO Roney Leroy Work Phone: [phone])[phone] [address] 09-08-2023 11:04-0400 Heart rate 85 /min DO Roney Leroy Work Phone: 0(606)004-181973 [place] [address] 09-08-2023 11:04-0400 Respiratory rate 18 /min DO Roney Ard Work Phone: 9(555)[phone] [address] 09-08-2023 11:04-0400 SaO2% (BldA) [Mass fraction] 97 % DO Roney Rad Work Phone: 9(465)981-699773 [place] [address] 09-08-2023 11:04-0400 Systolic blood pressure 139 mm[Hg] DO Roney Leroy Work Phone: 2(031)828-722473 [place] [address] 09-08-2023 11:01-0400 Body height 160.02 cm DO Roney Leroy Work Phone: 3(236)733-952573 [place] [address] 09-08-2023 11:01-0400 Body mass index (BMI) [Ratio] 29 kg/m2 DO Roney Leroy Work Phone: 1(865)829-419273 [place] [address] 09-08-2023 11:01-0400 Body weight 74.38 kg DO Roney Leroy Work Phone: 6([phone])595-359973 [place] [address] 12-08-2022 11:13-0400 Diastolic blood pressure 78 mm[Hg] Afshin Rocha MD Work Phone: [facility] 12-08-2022 11:13-0400 Systolic blood pressure 132 mm[Hg] Afshin Rocha MD Work Phone: [facility] 12-08-2022 10:43-0400 Body height 160 cm Afshin Rocha MD Work Phone: [facility] 12-08-2022 10:43-0400 Body mass index (BMI) [Ratio] 29.41 kg/m2 Afshin Rocha MD Work Phone: [facility] 12-08-2022 10:43-0400 Body weight 75.3 kg Afshin Rocha MD Work Phone: [facility] 12-08-2022 10:43-0400 Heart rate 87 /min Afshin Rocha MD Work Phone: [facility] 09-02-2022 10:00-0400 Body temperature 98 [degF] DO Roney Leroy Work Phone: [facility] 09-02-2022 10:00-0400 Diastolic blood pressure 72 mm[Hg] DO Roney Becerriler Work Phone: [facility] 09-02-2022 10:00-0400 Heart rate 85 /min DO Roney Leroy Work Phone: [facility] 09-02-2022 10:00-0400 Respiratory rate 20 /min DO Roney Becerriler Work Phone: [facility] 09-02-2022 10:00-0400 SaO2% (BldA) [Mass fraction] 95 % DO Roney Rad Work Phone: [facility] 09-02-2022 10:00-0400 Systolic blood pressure 136 mm[Hg] DO Roney Rad Work Phone: [facility] 05-19-2022 11:45-0400 Body height 162.56 cm Meir Morrissey Other [employer] Other 05-19-2022 11:45-0400 Body mass index (BMI) [Ratio] 27.12 kg/m2 Meir Ureñay Other [facility] [employer] Other 05-19-2022 11:45-0400 Body weight 71.67 kg Meir Ureñay Other [employer] Other 11-26-2021 14:45-0400 Body height 162.56 cm Meir Morrissey Other [employer] Other 11-26-2021 14:45-0400 Body mass index (BMI) [Ratio] 27.46 kg/m2 Meir Popetty Other [employer] Other 11-26-2021 14:45-0400 Body weight 72.58 kg Meir Morrissey Other [employer] Other 11-18-2021 10:34-0400 Blood Pressure Location Noe [employer] [facility] 11-18-2021 10:34-0400 Diastolic blood pressure 71 mm[Hg] [employer] [facility] 11-18-2021 10:34-0400 Heart rate 72 /min [employer] [facility] 11-18-2021 10:34-0400 Systolic blood pressure 145 mm[Hg] [employer] [facility] 12-05-2020 15:00-0400 Body height 162.56 cm Meir Toshiamerariy Other [facility] [employer] Other 12-05-2020 15:00-0400 Body mass index (BMI) [Ratio] 27.63 kg/m2 Meir Morrissey Other [employer] Other 12-05-2020 15:00-0400 Body weight 73.03 kg Meir Morrissey Other [employer] Other 12-08-2018 14:36-0400 Body Temperature 98.2 [degF] [facility] 12-08-2018 14:36-0400 Body weight 78.8 kg [facility] 12-08-2018 14:36-0400 BP Diastolic 76 mm[Hg] [facility] 12-08-2018 14:36-0400 BP Systolic 146 mm[Hg] [facility] 12-08-2018 14:36-0400 Pulse (Heart Rate) 78 /min [facility] 12-08-2018 14:36-0400 Pulse Oximetry 98 % [facility] 12-08-2018 14:36-0400 Respiratory Rate 20 /min [facility] 10-14-2018 14:07-0400 Height 157.48 cm [facility] Encounters Encounter Date Encounter Type Care Provider Facility Start: 04-18-2024 ambulatory Noe LOZA Facility : [facility] Start: 10-27-2023 End: 10-27-2023 ambulatory HANG WHEELER Not Available Start: 10-18-2023 End: 10-18-2023 ambulatory JAH SUTHERLAND Not Available Start: 10-14-2023 End: 10-15-2023 Refill Chalo Menjivar MD Work Phone: Rheumatology Comment on above: Refill Request Start: 10-06-2023 End: 10-06-2023 ambulatory MOUNIKA DICK Not Available Start: 09-29-2023 End: 09-29-2023 ambulatory SADE PALMA Not Available Start: 09-22-2023 End: 09-22-2023 ambulatory TRAMAINE MILLS Not Available Start: 09-16-2023 End: 09-16-2023 ambulatory RONEY LEROY Facility: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) Start: 09-08-2023 End: 09-08-2023 ambulatory DO Roney Leroy Work Phone: [facility] Work Phone: Start: 09-08-2023 End: 09-08-2023 Patient encounter procedure DO Roney Leroy Work Phone: [facility] Physician [facility] Amb[facility] Work Phone: Start: 09-08-2023 Registered Recurring DO Roney mosqueda Work Phone: [facility] [place] [facility] Work Phone: Start: 09-08-2023 ambulatory Elsa Siddiqui Facility:[facility] Start: 09-03-2023 End: 09-03-2023 ambulatory RONEY Jacqueline RAD Facility:[facility] Start: 09-03-2023 End: 09-03-2023 Nursing evaluation of patient and report Nurse Lucrecia [facility] Nalini Work Phone: Rheumatology Comment on above: Senile osteoporosis (Primary Dx); Personal history of other drug therapy Start: 09-02-2023 Refill Nic gonzalez MD Work Phone: Ophthalmology Comment on above: Refill Request Start: 08-25-2023 End: 08-25-2023 ambulatory GUNNER HIDALGO Not Available Start: 08-18-2023 End: 08-18-2023 ambulatory TRAMAINE MILLS Not Available Start: 08-05-2023 End: 08-05-2023 ambulatory RONEY LEROY Facility: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 Start: 07-01-2023 End: 07-01-2023 ambulatory BRANDO SHIELDS Facility: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 Start: 06-03-2023 End: 06-03-2023 ambulatory RONEY LEROY Facility: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; Retinal edema; 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r degeneration of right eye with active choroidal neovascularization (HCC); Nonexudative age-related macular degeneration, left eye, intermediate dry stage Start: 04-21-2023 End: 04-21-2023 ambulatory HANG WHEELER Not Available Start: 03-18-2023 Bamboo flowsheet Mounika L Cut ler DO Work Phone: [facility] Start: 03-18-2023 Bamboo flowsheet Mounika L Cut ler DO Work Phone: [facility] Start: 03-18-2023 End: 03-18-2023 ambulatory MOUNIKA L CUTLER Not Available Start: 03-16-2023 End: 03-16-2023 ambulatory Mounika L [place] Facility:[facility] Start: 03-05-2023 End: 03-05-2023 ambulatory CHALO MENJIVAR Facility:[facility] Start: 02-18-2023 End: 02-18-2023 ambulatory GUNNER HIDALGO Not Available Start: 02-09-2023 End: 02-09-2023 ambulatory MOUNIKA L CUTLER Not Available Start: 01-29-2023 End: 01-29-2023 ambulatory FRED DELANEY Not Available Start: 01-03-2023 Telephone encounter Paulo harmon MD Work Phone: Ophthalmology Comment on above: Patient Update Start: 12-08-2022 End: 12-08-2022 ambulatory AFSHIN ROCHA [facility] Ambulatory Start: 12-08-2022 End: 12-08-2022 Office outpatient visit 25 minutes Afshin Rocha MD Work Phone: [facility] Comment on above: Vertigo (Primary Dx) ; SVT (supraventricular tachycardia); Overweight (BMI 25.0-29.9); Essential hypertension Start: 11-23-2022 End: 11-23-2022 ambulatory Meir Morrissey Other [employer] Other Start: 11-23-2022 Telephone encounter Meir Baltazar Gastroenterology Start: 11-17-2022 End: 11-18-2022 ambulatory Noe Lynn EVENS Facility:[facility] Start: 09-09-2022 Telephone encounter Chalo ott MD Work Phone: Rheumatology Comment on above: Results (BMD) Start: 08-26-2022 Telephone encounter Nic Anderson MD Work Phone: Ophthalmology Comment on above: Patient Question Start: 08-13-2022 Preprocedural examin ation done Mounika Dick DO Work Phone: [facility] Start: 08-05-2022 Telephone encounter Chalo ott MD Work Phone: Rheumatology Comment on above: Results Start: 05-19-2022 End: 05-19-2022 ambulatory Meir Morrissey Other [employer] Other Start: 05-19-2022 Patient encounter procedure Meir EMERY Gastroenterology Start: 04-14-2022 End: 04-14-2022 Patient encounter procedure Nic Anderson MD Work Phone: Ophthalmology Comment on above: 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); History of Descemet membrane endothelial keratoplasty (DMEK); Pseudophakia Start: 03-03-2022 End: 03-03-2022 ambulatory Meir Morrissey Other [employer] Other Start: 03-03-2022 Telephone encounter Meir Baltazar Gastroenterology Start: 03-03-2022 End: 03-03-2022 Patient encounter procedure Nic Anderson MD Work Phone: Ophthalmology Comment on above: 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) Start: 01-27-2022 End: 01-27-2022 Patient encounter procedure Nic Anderson MD Work Phone: Ophthalmology Comment on above: 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 Start: 11-14-2021 End: 11-15-[address] NOE LOZA Facility:[facility] Start: 11-09-2021 End: 11-09-2021 ambulatory Isiah Alvares Facility:[facility] Start: 09-30-2021 End: 09-30-2021 Patient encounter procedure Nic Anderson MD Work Phone: Ophthalmology Comment on above: Anterior capsular op acification (Primary Dx); Pseudophakia; History of Descemet membrane endothelial keratoplasty (DMEK); Intermediate stage nonexudative age-related macular degeneration of both eyes; Retained lens material following cataract surgery of left eye Start: 09-29-2021 End: 09-29-2021 ambulatory Meir Morrissey Other [employer] Other Start: 09-29-2021 Telephone encounter Meir Morrissey [facility] Start: 09-26-2021 Telephone encounter Nic Anderson MD Work Phone: Ophthalmology Comment on above: Patient Update Start: 08-13-2021 End: 08-13-2021 Refill Robert Crocker MD Work Phone: Orthopaedics Comment on above: Status post bilatera l knee replacements (Primary Dx) Start: 07-30-2021 End: 07-30-2021 Patient encounter procedure Robert Sullivan DPM Work Phone: Podiatry Comment on above: Onychomycosis of rig ht great toe (Primary Dx) Start: 07-22-2021 End: 07-22-2021 Patient encounter procedure Nic Anderson MD Work Phone: Ophthalmology Comment on above: History of Descemet membrane endothelial keratoplasty (DMEK) (Primary Dx); Pseudophakia Start: 07-02-2021 ambulatory Maribell Butler RN [facility] Start: 07-02-2021 Patient encounter procedure Maribell Butler RN [employer] Comment on above: Appointment Start: 06-03-2021 End: 06-03-2021 Patient encounter procedure Nic Anderson MD Work Phone: Ophthalmology Comment on above: History of Descemet membrane endothelial keratoplasty (DMEK) (Primary Dx); Pseudophakia; Retinal edema Start: 06-02-2021 Refill Chalo Menjivar MD Work Phone: Rheumatology Comment on above: Refill Request Start: 05-06-2021 End: 05-06-2021 Patient encounter procedure Nic Anderson MD Work Phone: Ophthalmology Comment on above: Status post corneal transplant (Primary Dx); History of Descemet membrane endothelial keratoplasty (DMEK) Start: 04-29-2021 Telephone encounter Nic Anderson MD Work Phone: Ophthalmology Comment on above: Medication Problem Start: 04-14-2021 Preprocedural examin ation done Nic Anderson MD Work Phone: [facility] Work Phone: Start: 12-05-2020 Patient encounter procedure Meir EMERY Gastroenterology Start: 12-20-2018 End: 12-20-2018 Departed Referred Roney Leroy [facility] Start: 12-08-2018 Registered Recurring Roney Leroy [facility] Start: 06-20-2018 End: 06-20-2018 Patient encounter procedure [facility] Procedures Date Procedure Procedure Detail Performing Clinician Start: 09-16-2023 End: 09-16-2023 Intravitreal njx pharmacologic agt spx Brando Shields MD Work Phone: Start: 09-16-2023 Computerized ophthalmic imaging retina Brando Shields MD Work Phone: Start: 08-05-2023 End: 08-05-2023 Intravitreal njx pharmacologic agt spx Brando Shields MD Work Phone: Start: 08-05-2023 Computerized ophthalmic imaging retina Brando Shields MD Work Phone: Start: 07-01-2023 Computerized ophthalmic imaging retina Brando Shields MD Work Phone: Start: 07-01-2023 End: 07-01-2023 Intravitreal njx pharmacologic agt spx Brando Shields MD Work Phone: Start: 06-24-2023 Screening mammography of bilateral breasts DO Roney Leroy Work Phone: Start: 06-03-2023 End: 06-03-2023 Intravitreal njx pharmacologic agt spx Brando Shields MD Work Phone: Start: 06-03-2023 Computerized ophthalmic imaging retina Brando Shields MD Work Phone: Start: 04-29-2023 End: 04-29-2023 Computerized ophthalmic imaging retina Nic Anderson MD Work Phone: Start: 12-08-2022 ECG 12-LEAD AFSHIN ROCHA Start: 12-08-2022 Ecg routine ecg w/least 12 lds w/i&r Afshin Rocha MD Work Phone: Start: 09-01-2022 Dual energy X-ray absorptiometry DO Roney Leroy Work Phone: Start: 06-22-2022 Screening mammography of bilateral breasts DO Roney Leroy Work Phone: Start: 04-14-2022 Computerized corneal topography uni/bi Nic Anderson MD Work Phone: Start: 09-30-2021 Computerized ophthalmic imaging retina Nic Anderson MD Work Phone: Start: 09-30-2021 Post-cataract laser surgery Nic lau MD Work Phone: Start: 07-22-2021 Computerized corneal topography uni/bi Nic Anderson MD Work Phone: Start: 06-18-2021 Screening mammography of bilateral breasts DO Roney Leroy Work Phone: Start: 06-03-2021 Computerized ophthalmic imaging retina Nic Anderson MD Work Phone: Start: 05-06-2021 Cmptr ophthalmic dx img ant segmt w/i&r uni/bi Nic Anderson MD Work Phone: Start: 11-21-2020 Extracorporeal shockwave lithotripsy of calculus of kidney Noe LOZA Start: 08-26-2020 Dual energy X-ray absorptiometry DO Roney Leroy Work Phone: Start: 06-17-2020 Bilateral mammography DO Roney Leroy Work Phone: Start: 06-14-2019 Bilateral mammography DO Roney Leroy Work Phone: Start: 06-14-2019 Ultrasonography of breast DO Roney Leroy Work Phone: Start: 12-20-2018 End: 12-20-2018 Bacteria identification test Roney Leroy Start: 11-28-2018 Adult depression screening assessment Nic Anderson MD Work Phone: Start: 08-19-2018 End: 08-19-2018 Dual energy X-ray photon absorptiometry Roney Leroy Start: 07-01-2017 Extracorporeal shockwave lithotripsy of calculus of kidney Noe LOZA Start: 09-03-2015 History of operative procedure on knee Status post bilateral knee replacements Nic Anderson MD Work Phone: Start: 06-19-2015 Urodynamic studies Noe LOZA Start: 11-26-2014 Cystourethroscopy with dilation of urethral stricture Noe LOZA Start: 02-08-2007 Arthroplasty of knee Noe LOZA Start: 02-08-1987 Biopsy of breast Noe LOZA Start: 02-08-1967 Exploration of kidney Noe LOZA Appendectomy Noe LOZA Breast surgery (qual ifier value) Noe LOZA Corneal transplant Noe Jones MartínMONICA H/O: cornea recipient Status pos t corneal transplant Nic Anderson MD Work Phone: History of operative procedure on knee Status post bilateral knee replacements Robert Crocker MD Work Phone: Procedure on back Noe ANDERSON Total knee replacement Jai LOZA Plan of Treatment Date Care Activity Detail Author Start: 03-05-2026 Diabetes Screening Diabetes Screening [facility] Start: 08-03-2025 DIABETES SCREEN DIABETES SCREEN [facility] Start: 08-03-2025 Diabetes Screening Diabetes Screening [facility] Start: 09-30-2024 End: 2025 OCT MACULA CIRRUS OU (BOTH EYES) OCT MACULA CIRRUS OU (BOTH EYES) [facility] Imaging Routine 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) Expected: 09/30/2024, Expires: 2025 [facility] Work Phone: Comment on above: Expected: 09/30/2024, Expires: Start: 08-19-2024 End: 01-26-2025 OCT MACULA CIRRUS OU (BOTH EYES) OCT MACULA CIRRUS OU (BOTH EYES) [facility] Imaging Routine 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) Expected: 08/19/2024, Expires: 01/26/2025 [facility] Work Phone: Comment on above: Expected: 08/19/2024, Expires: Start: 07-15-2024 End: 12-22-2024 OCT MACULA CIRRUS OU (BOTH EYES) OCT MACULA CIRRUS OU (BOTH EYES) [facility] Imaging Routine 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) Expected: 07/15/2024, Expires: 12/22/2024 [facility] Work Phone: Comment on above: Expected: 07/15/2024, Expires: Start: 06-17-2024 End: 11-24-2024 OCT MACULA CIRRUS OU (BOTH EYES) OCT MACULA CIRRUS OU (BOTH EYES) [facility] Imaging Routine 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) Expected: 06/17/2024, Expires: 11/24/2024 [facility] Work Phone: Comment on above: Expected: 06/17/2024, Expires: Start: 04-16-2024 DIABETES SCREEN DIABETES SCREEN [facility] Start: 04-13-2024 End: 04-13-2024 Patient encounter procedure 04/13/2024 10:15 AM EST Office Visit [facility] Ophthalmology [address] [address] Nic Anderson MD [address] [place] [address] 1 YEAR FOLLOW UP Ophthalmology Comment on above: 1 YEAR FOLLOW UP Start: 01-30-2024 Medicare Annual Wellness (AWV) Medicare Annual Wellness (AWV) [facility] Start: 11-29-2023 End: 11-29-2023 Patient encounter procedure 11/29/2023 12:00 PM EDT Office Visit Rheumatology [address] [facility] [place] [address] Chalo Menjivar MD [address] [facility] [place] [address] Postmenopausal osteoporosis of multiple sites Rheumatology Comment on above: Postmenopausal osteoporosis of multiple sites Start: 11-11-2023 End: 11-11-2023 Patient encounter procedure Ophthalmology Comment on above: Return in about 7 weeks (around ) for Inj/OCT only, 7-8 weeks. *7-8 W DTI AVASTIN O U Start: 10-10-2023 Covid-19 Vaccine ( season) Covid-19 Vaccine () [facility] Start: 10-10-2023 Influenza vaccination Influenza Vaccine (#1) [facility] Start: 09-16-2023 End: 09-16-2023 Patient encounter procedure 09/16/2023 10:30 AM EDT Office Visit [facility] [address] [place] [address] Brando Shields MD [address] [place] [address] *6 W DTI AVASTIN OU Ophthalmology Comment on above: *6 W DTI AVASTIN OU Start: 09-03-2023 End: 09-03-2023 Nursing evaluation of patient and report Rheumatology Comment on above: Prolia Prolia + Start: 08-25-2023 End: 08-25-2023 Patient encounter procedure 08/25/2023 1:15 PM EDT Office Visit [facility] [address] [facility] [address] [place] [address] Gunner Hidalgo DO [address] [facility] [address] [place] [address] [facility] Start: 08-05-2023 End: 08-05-2023 Patient encounter procedure Ophthalmology Comment on above: Return in about 6 weeks (around 08/12/2023 ) for Inj/OCT only, OK to OB fill all green spots 1st . *6 W DTI AVASTIN OU Start: 07-01-2023 End: 07-01-2023 Patient encounter procedure 07/01/2023 8:45 AM EDT Office Visit [facility] Op[facility] [address] [place] [address] Brando Shields MD [address] [place] [address] *4 W DTI AVASTIN OU Ophthalmology Comment on above: *4 W DTI AVASTIN OU Start: 02-08-2023 Advance Directive Discussion Advance Directive Discussion [facility] Start: 02-08-2023 Behavioral Health Screening Behavioral Health Screening [facility] Start: 02-08-2023 Depression Assessment Depression Assessment [facility] Start: 10-09-2022 Covid-19 Vaccine () Covid-19 Vaccine () [facility] Start: 10-09-2022 Influenza vaccination [facility] Start: 05-24-2022 COVID-19 VACCINE (5 - Pfizer series) COVID-19 VACCINE (5 - Pfizer series) [facility] Start: 03-20-2022 COVID-19 Vaccine (4 - Pfizer series) COVID-19 Vaccine (4 - Pfizer series) [facility] Start: 02-08-2022 ADVANCE DIRECTIVE DISCUSSION ADVANCE DIRECTIVE DISCUSSION [facility] Start: 02-08-2022 DEPRESSION ASSESSMENT DEPRESSION ASSESSMENT [facility] Start: 10-09-2021 Influenza vaccination [facility] Start: 03-27-2021 COVID-19 VACCINE (4 - Booster for Pfizer series) COVID-19 VACCINE (4 - Booster for Pfizer series) [facility] Start: 03-19-2021 COVID-19 VACCINE (4 - Booster for Pfizer series) COVID-19 VACCINE (4 - Booster for Pfizer series) [facility] Start: 02-08-2021 ADVANCE DIRECTIVE DISCUSSION ADVANCE DIRECTIVE DISCUSSION [facility] Start: 02-08-2021 DEPRESSION ASSESSMENT DEPRESSION ASSESSMENT [facility] Start: 10-09-2020 Influenza vaccination INFLUENZA (#1) [facility] Start: 02-24-2020 PNEUMOCOCCAL: 65+ (2 - PCV) PNEUMOCOCCAL: 65+ (2 - PCV) [facility] Start: 02-24-2020 PNEUMOCOCCAL: 65+ (3 - PCV) PNEUMOCOCCAL: 65+ (3 - PCV) [facility] Start: 11-29-2019 Adult depression screening assessment DEPRESSION SCREENING [facility] Start: 2007 BONE DENSITY BONE DENSITY [facility] Start: 2007 Bone Density Screening Bone Density Screening [facility] Start: 2007 Screening for osteoporosis Bone Density Screening [facility] Start: 2002 RSV Vaccine (1 - 1-dose 60+ series) RSV Vaccine (1 - 1-dose 60+ series) [facility] Start: 1964 DTaP/Tdap/Td Vaccines (1 - Tdap) DTaP/Tdap/Td Vaccines (1 - Tdap) [facility] Start: 1961 Urine microalbumin profile [facility] Start: 1960 ANNUAL PCP TEAM CHRONIC DISEASE VISIT ANNUAL PCP TEAM CHRONIC DISEASE VISIT [facility] Start: 1960 Anxiety Screening Anxiety Screening [facility] Start: 1960 BP CONTROLLED (<130/80) BP CONTROLLED (<130/80) [facility] Start: 1960 Depression Screening Depression Screening [facility] Start: 1960 Diabetes mellitus screening Diabetes Screening [facility] Start: 1960 SPIROMETRY SPIROMETRY [facility] Start: 1942 Lip[address]id Panel [facility] Start: 1942 Medicare Annual Wellness Visit Medicare Annual Wellness Visit (AWV) [facility] Start: 1942 Screening for osteoporosis Bone Density Scan [facility] Start: 1942 Thyroid stimulating hormone measurement TSH Level [facility] DXA Skeletal system.axial Views for bone density [facility] MG Breast - bilatera l Screening [facility] End: 10-21-2024 OCT MACULA CIRRUS OU (BOTH EYES) OCT MACULA CIRRUS OU (BOTH EYES) OPHT Imaging Routine 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, left eye, intermediate dry stage Pseudophakia 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 1 Occurrences starting 04/30/2023 until 10/21/2024 [facility] Work Phone: Comment on above: 1 Occurrences starting 04/30/2023 until 10/21/2024 [facility] EYE INS TITUTE [facility] Immunizations Immunization Date Immunization Notes Care Provider Fa norbert 01-29-2023 Influenza, injectabl e, Madin Moffett Canine Kidney, preservative free, quadrivalent Mounika [place] DO Work Phone: [facility] 01-29-2023 influenza virus vaccine, unspecified formulation Nic Anderson MD Work Phone: [facility] 12-19-2021 Influenza, Seasonal, Quadrivalent, Adjuvanted Mounika [place] DO Work Phone: [facility] 12-19-2021 Seasonal, trivalent, recombinant, injectable influenza vaccine, preservative free Mounika [place] DO Work Phone: [facility] 12-19-2021 influenza virus vaccine, unspecified formulation Afshin Rocha MD Work Phone: [facility] Work Phone: 08-18-2021 influenza, injectabl e, quadrivalent, preservative free Mounika [place] DO Work Phone: [facility] 12-25-2020 SARS-CoV-2 (COVID-19 ) mRNA BNT-162b2 vax Noe EVENS [facility] 03-29-2020 COVID-19 vaccine, ag e 12+ yr (PFIZER-BIONT[employer] [place] - PURPLE TOP) Nic Anderson MD Work Phone: [facility] Work Phone: Comment on above: Result Comment: 2021: [id number] 03-11-2020 SARS-CoV-2 (COVID-19 ) mRNA-1273 vaccine Noe LOZA [facility] 03-08-2020 COVID-19 vaccine, ag e 12+ yr (PFIZER-BIONTECH - PURPLE TOP) Nic Anderson MD Work Phone: [facility] Work Phone: Comment on above: Result Comment: 2021: [id number] 02-09-2020 SARS-CoV-2 (COVID-19 ) mRNA-1273 vaccine Noe LOZA [facility] 09-25-2019 influenza virus vaccine, unspecified formulation Noe LOZA [facility] 09-25-2019 influenza, injectabl e, quadrivalent, preservative free Nic Anderson MD Work Phone: [facility] Work Phone: 09-22-2019 influenza, high-dose , quadrivalent vaccine (FLUZONE HIGH DOSE QUADRIVALENT) Nic Anderson MD Work Phone: [facility] Work Phone: 09-22-2019 zoster vaccine recombinant Nic Anderson MD Work Phone: [facility] Work Phone: 09-09-2019 influenza virus vaccine, unspecified formulation Noe LOZA [facility] 09-09-2019 influenza, injectabl e, quadrivalent, preservative free Nic Anderson MD Work Phone: [facility] Work Phone: 04-10-2019 zoster vaccine recombinant Nic Anderson MD Work Phone: [facility] Work Phone: 02-23-2019 pneumococcal polysaccharide vaccine, 23 valent Nic Anderson MD Work Phone: [facility] Work Phone: 12-19-2018 influenza, injectabl e, madin melina canine kidney, preservative free Nic Anderson MD Work Phone: [facility] Work Phone: 01-13-2018 influenza virus vaccine, unspecified formulation Noe LOZA [facility] 01-13-2018 influenza, injectabl e, quadrivalent, contains preservative Nic Anderson MD Work Phone: [facility] Work Phone: 11-12-2016 influenza, injectabl e, madin melina canine kidney, preservative free Nic Anderson MD Work Phone: [facility] Work Phone: 11-12-2016 Influenza, injectabl e, Madin Melina Canine Kidney, preservative free, quadrivalent Mounika [place] DO Work Phone: [facility] 12-17-2015 influenza virus vaccine, unspecified formulation Noe LOZA [facility] 12-17-2015 influenza, injectabl e, quadrivalent, contains preservative Nic Anderson MD Work Phone: [facility] Work Phone: 12-17-2015 influenza, injectabl e, quadrivalent, preservative free Mounika [place] DO Work Phone: [facility] 12-31-2014 pneumococcal conjuga te vaccine, 13 valent Mounika [place] DO Work Phone: [facility] 11-30-2014 influenza, seasonal, injectable, preservative free Mounika [place] DO Work Phone: [facility] 07-11-2009 pneumococcal polysaccharide vaccine, 23 valent Nic Anderson MD Work Phone: [facility] NEGATED: Highlighted row has not occurred!02-23-2019 influenza, high dose seasonal, preservative-free DO Roney Leroy Work Phone: [facility] Payers Date Payer Category Payer Private Health Insurance [id number] 2021 Medicare AETNA MEDICARE A ETNA MEDICARE PPO [id number] 2021-Present [phone] [address] [place] [address] PPO [id number] 2021 Medicare [id number] 2018 Self-pay [id number] 1959 Medicare [id number] 1942 Unknown [id number] 2.16.840.1.621195.3.579.2.5 93 1942 Unknown [id number] 2.16.840.1.972819.3.579.2.5 93 1942 Unknown [id number] 2.16.840.1.993142.3.579.2.5 93 1942 Unknown [id number] 2.16.840.1.754584.3.579.2.7 27 1942 Unknown [id number] 2.16.840.1.767441.3.579.2.7 27 1942 Unknown [id number] 2.16.840.1.456404.3.579.2.7 27 1942 Unknown [id number] 2.16.840.1.985600.3.579.2.1 244 1942 Unknown [id number] 2.16.840.1.531706.3.579.2.1 259 1942 Unknown [id number] 2.16.840.1.639132.3.579.2.1 259 1942 Unknown [id number] 2.16.840.1.783488.3.579.2.1 259 1942 Unknown [id number] 2.16.840.1.292054.3.579.2.1 259 1942 Unknown [id number] 2.16.840.1.659267.3.579.2.1 259 1942 Unknown [id number] 2.16.840.1.469325.3.579.2.1 259 1942 Unknown [id number] 2.16.840.1.416795.3.579.2.1 259 1942 Unknown [id number] 2.16.840.1.784982.3.579.2.1 259 1942 Unknown [id number] 2.16.840.1.860012.3.579.2.1 259 1942 Unknown [id number] 2.16.840.1.917037.3.579.2.1 259 1942 Unknown [id number] 2.16.840.1.659214.3.579.2.1 259 1942 Unknown [id number] 2.16.840.1.296582.3.579.2.1 259 1942 Unknown [id number] 2.16.840.1.660265.3.579.2.1 259 1942 Unknown [id number] 2.16.840.1.813372.3.579.2.1 259 Medicare [id number] Private Health Insurance GAB NVTYD [id number] Private Health Insurance [id number] 2.16.840.1.104905.19 Unknown [id number] Unknown [id number] 2.16.840.1.063168.3.579.2.5 31 Unknown [id number] 2.16.840.1.387789.3.579.2.5 31 Social History Date Type Detail Facility Start: 12-10-2018 End: 11-24-2021 Tobacco smoking status NHIS Ex-smoker (finding) [facility] Start: 1940 Sex Assigned At Female [facility] End: 06-21-1974 History of tobacco use Current smoker [facility] Start: 05-06-2021 End: 09-16-2023 Alcohol intake Current drinker of alcohol (finding) [facility] Start: 1940 Sex Assigned At Not on file [facility] Start: 04-18-2021 End: 12-08-2022 Exposure to SARS-CoV-2 (event) Not sure [facility] Start: 11-28-2018 End: 08-03-2022 Sex Assigned At [facility] Other End: 06-21-1974 History of tobacco use Cigarette Smoker [facility] Start: 02-22-2013 End: 11-24-2021 Tobacco use and exposure Smokeless tobacco non-user [facility] Tobacco smoking status Never [facility] Start: 11-24-2021 Tobacco Comment socially only [facility] Start: 11-28-2018 End: 08-03-2022 History of Social function [facility] Start: 12-08-[address] [facility] Work Phone: Start: 05-19-2022 End: 08-13-2022 Tobacco smoking status NHIS Never smoked tobacco [facility] Within the last year , have you been afraid of your partner or ex-partner? No [facility] Do you belong to any clubs or organizations such as congregational groups, unions, fraternal or athletic groups, or school groups? Yes [facility] Are you now , , , , never or living with a partner? [facility] How often to you hav e a drink containing alcohol? Never [facility] Do you feel stress - tense, restless, nervous, or anxious, or unable to sleep at night because your mind is troubled all the time - these days [OSQ] Not at all [facility] (I/We) worried wheth er (my/our) food would run out before (I/we) got money to buy more. Never true [facility] Start: 08-13-2022 Alcohol Comment caffeine 1-2 cups/day [facility] Medical Equipment Procedure Code Equipment Code Equipment Origin al Text Equipment Identifier Dates Bernard Bn Smplx Hv Gentamicin Fd - [id number] Start: 06-25-2016 Bernard Bn Smplx Hv Gentamicin Fd - [id number] Start: 06-25-2016 Cornea Tissue Pre-Loaded Dmek - [id number] Start: 09-09-2020 Cornea Tissue Pre-Loaded Dmek - [id number] Start: 04-28-2021 Gas Ispan Constellation Intraocular Vision System Sf6 125 - [id number] Start: 09-09-2020 Gas Ispan [employer] Intraocular Vision System Sf6 125 - [id number] Start: 04-28-2021 Lens Iol 0d +23 Savi Uv Abs - [id number] Start: 09-09-2020 Lens Iol 0d +23 Savi Uv Abs - [id number] Start: 04-28-2021 Component Person a 7 Standard Cocr Femoral Cemented Posterior - [id number] Start: 06-25-2016 Component 32mm A ll Poly Patellar Psn - [id number] Start: 06-25-2016 Surface Persona 6-9 Cd Vivacit-E 10mm Articular Constrain Posterior - [id number] Start: 06-25-2016 Baseplate Person a 5d D Tivanium Tibial Cemented Stem Knee Left - [id number] Start: 06-25-2016 Goals Date Patient Goal Desired Activity /State Functional Status Date Assessment Result Facility 11-18-2021 Functional Status N/A [facility] Clinical Notes 03-17-2016 to 10-14-2023 Telephone Encounter - Chalo Menjivar MD - 10/14/2023 10:57 PM EDTTelephone Encounter - Chalo Menjivar MD - 10/14/2023 10:57 PM EDTPatient Brando Nascimento MD - 09/16/2023 10:59 AM EDT Note Date & Type Note Facility 10-14-2023 Telephone encounter Note Notify patient medication sent as requested Thank you. Patient's request for medication is as follows: Requested Prescriptions Pending Prescriptions Disp Refills meloxicam (MOBIC) 15 mg tablet [Pharmacy Med Name: Meloxicam 15 MG Oral Tablet] 90 tablet 3 Sig: TAKE 1 TABLET BY MOUTH DAILY WITH FOOD FOR PAIN Prescription(s) as above. Please process accordingly. Chalo Menjivar MD [facility] 10-14-2023 Miscellaneous Notes Notify patient medication sent as requested Thank you. Patient's request for medication is as follows: Requested Prescriptions Pending Prescriptions Disp Refills meloxicam (MOBIC) 15 mg tablet [Pharmacy Med Name: Meloxicam 15 MG Oral Tablet] 90 tablet 3 Sig: TAKE 1 TABLET BY MOUTH DAILY WITH FOOD FOR PAIN Prescription(s) as above. Please process accordingly. Chalo Menjivar MD Most recent Rheumatology visit: 03/05/2023 (with Chalo Menjivar) Last Bone Density on file: None on file Rheumatology Care Team: None on file Recent Office Visits - This Specialty 03/05/2023 Postmenopausal osteoporosis of multiple sites Rheumatology Chalo Menjivar MD 08/03/2022 Pseudogout involving multiple joints Rheumatology Chalo Menjivar MD 11/24/2021 Inflammatory arthritis Rheumatology Chalo Menjivar MD Upcoming Rheumatology Appointments - Next 365 Days Visit Type Date Time Department [facility] 11/29/2023 12:00 PM [facility] N[facility]INI CBC: None on file in the last 6 months Vitamin D: Latest Ref Rng & Units 06/03/2023 07/13/2023 Vitamin D Vitamin D 25 Hydroxy 31.0 - 80.0 ng/mL 60.7 46.2 LFT: None on file in the last 6 months Hepatic Function: Creatinine: None on file in the last 6 months ESR/CRP: None on file in the last 6 months Uric Acid: None on file in the last 6 months Open Standing (Multiple Instance) Lab Orders None Open Future (Single Instance) Lab Orders None ................................. ..........0 documented in this encounter [facility] 10-14-2023 Telephone encounter Note Most recent Rheumatology visit: 03/05/2023 (with Chalo Menjivar) Last Bone Density on file: None on file Rheumatology Care Team: None on file Recent Office Visits - This Specialty 03/05/2023 Postmenopausal osteoporosis of multiple sites Rheumatology Chalo Menjivar MD 08/03/2022 Pseudogout involving multiple joints Rheumatology Chalo Menjivar MD 11/24/2021 Inflammatory arthritis Rheumatology Chalo Menjivar MD Upcoming Rheumatology Appointments - Next 365 Days Visit Type Date Time Department [facility] 11/29/2023 12:00 PM [facility] CBC: None on file in the last 6 months Vitamin D: Latest Ref Rng & Units 06/03/2023 07/13/2023 Vitamin D Vitamin D 25 Hydroxy 31.0 - 80.0 ng/mL 60.7 46.2 LFT: None on file in the last 6 months Hepatic Function: Creatinine: None on file in the last 6 months ESR/CRP: None on file in the last 6 months Uric Acid: None on file in the last 6 months Open Standing (Multiple Instance) Lab Orders None Open Future (Single Instance) Lab Orders None ................................. ..........0 [facility] 09-16-2023 Note Date of Procedure 09/16/2023 [place] Protocol Safety Checklist Sign In: A moment to CARE completed, Patient name, date of , allergies and intended procedure verified, Special equipment verified, Appropriate PPE verified. Provider Confirms: Intended patient and procedure match the source document, Correct side/site marked visible, Consent documented and matches the intended procedure. Relevant labs, photos, and/or imaging studies have been reviewed. Medications required for procedure verified. Fire risk assessed and interventions discussed. Correct implant confirmed and expiration reviewed. Anesthesia 0.5 mL subconjunctival injection of 2% Lidocaine. Prep 5% Betadine. Injection Administration Medication: 1.25 mg bevacizumab (Jase's) 2.75 mg/0.11 mL Route: INTRAVITREAL, Site: Left Balance Wasted Residual medication less than 1 unit was discarded. Anterior Chamber Paracentesis No. Post Injection Evaluation Patient has at least hand motion vision. Post Procedure Medications None. Home Going Prescription None. Sign Out Sign out discussion completed, Post-procedure follow up management communicated, All instruments, equipment, and/or possible retained foreign bodies accounted for. Specimen containers correctly labeled. [facility] 09-16-2023 Note Date of Procedure 09/16/2023 [place] Protocol Safety Checklist Sign In: A moment to CARE completed, Patient name, date of , allergies and intended procedure verified, Special equipment verified, Appropriate PPE verified. Provider Confirms: Intended patient and procedure match the source document, Consent documented and matches the intended procedure, Correct side/site marked visible. Relevant labs, photos, and/or imaging studies have been reviewed. Medications required for procedure verified. Fire risk assessed and interventions discussed. Correct implant confirmed and expiration reviewed. Anesthesia 0.5 mL subconjunctival injection of 2% Lidocaine. Prep 5% Betadine. Injection Administration Medication: 1.25 mg bevacizumab (Jase's) 2.75 mg/0.11 mL Route: INTRAVITREAL, Site: Right Balance Wasted Residual medication less than 1 unit was discarded. Anterior Chamber Paracentesis No. Post Injection Evaluation Patient has at least hand motion vision. Post Procedure Medications None. Home Going Prescription None. Sign Out Sign out discussion completed, All instruments, equipment, and/or possible retained foreign bodies accounted for, Post-procedure follow up management communicated. Specimen containers correctly labeled. [facility] 09-16-2023 Instructions Brando Shields MD - 09/16/2023 11:08 AM EDT Post Injection Patient Information You had eye injection(s) today. These are your after injection instructions. Today: Preservative free artificial tears 1 drop every hour while awake as needed Tomorrow: Preservative free artificial tears 1 drop every 2 hours while awake as needed Care instructions after eye injections: Do not rub or touch your eye other than dabbing lightly with a tissue An szoz-ssa-izhcrmd pain reliever (i.e. Tylenol) can be used for mild soreness Use artificial tears/lubricating drops once an hour as needed for comfort (chill the tears in the refrigerator for more comfort). If you are using the tears more than 4 times a day they need to be the preservative free kind Warm or cool compresses are okay It is okay to shower and wash your face. No swimming pools or saunas for 24 hours COMMON symptoms after successful eye injections: Mild to moderate pain or irritation beginning the day of the injection. This should begin to improve the following day. Eyelash in the eye or shirley/gritty sensation Tearing Mild floaters or bubbles in your vision - usually resolves after 1-2 days Bloody tears for 1-2 days after treatment Eye Redness Also known as subconjunctival hemorrhage This bruise can cover the entire white part of the eye and may last a few weeks CONCERNING symptoms after eye injections: Severe, constant pain Worsening pain after the first day Decreased vision Severe, constant floaters Curtain or veil in your vision New eye redness that was not there after the injection and covers the whole eye Please call the office immediately for any of the above listed concerning symptoms or with any other questions. 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 Interpretation Right Eye Abnormal foveal contour. Findings include Drusen, RPE Irregularity, Atrophy; Negative for Intraretinal fluid, Subretinal fluid. Left Eye Abnormal foveal contour. Findings include Drusen, RPE Irregularity, Atrophy; Negative for Intraretinal fluid, Subretinal fluid. Interval Change Right Eye Stable. Left Eye Stable. [facility] 09-16-2023 Note HNO ID: [id number] Author: BRANDO SHIELDS MD Service: ? Author Type: Physician Type: Progress Notes Filed: 09/16/2023 11:08 Note Text: Referred by Dr. Anderson Age related macular degeneration - Smoking history: quit a long time ago; Family history: yes - Amsler grid and AREDS2 use reviewed. 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 I have seen and examined this patient. I have discussed the case and the management of this patient's care with the Resident, if applicable. I also have reviewed and agree with the assessment and plan as stated above and agree with all of its relevant components. [facility] 09-16-2023 History of Present illness Narrative Referred by Dr. Anderson Age related macular degeneration - Smoking history: quit a long time ago; Family history: yes - Amsler grid and AREDS2 use reviewed. 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 - VA at start of therapy 20/40 - s/p Avastin, 6 weeks - OCT with resolved fluid - VA better Plan = - Avastin OD today LEFT EYE - Neovascular - atrophy sup to fovea - VA start of tx 20/30 - s/p Avastin, 6 weeks - OCT with resolved trace sliver of subretinal fluid inf, not a definitive Choroidal neovascular membrane - VA better Plan = - Avastin OS today F/U - Extend 7-8 weeks DTI OU ABMD both eyes - s/p SK OD (Danielle) Fuch's Dystrophy, both eyes - S/p DMEK both eyes (Danielle) - pred daily OU Pseudophakia, both eyes - stable, observe Dry eye syndrome, both eyes - AT QID PRN - warm compresses and lid scrubs I have confirmed and edited as necessary the relevant ophthalmic history, ROS, reviewed the HPI and the neuro exam findings as obtained by others. I have seen and examined this patient. I have discussed the case and the management of this patient's care with the Resident, if applicable. I also have reviewed and agree with the assessment and plan as stated above and agree with all of its relevant components. documented in this encounter [facility] 09-02-2023 Telephone encounter Note Pharmacy electronically requesting refills as follows: Requested Prescriptions Pending Prescriptions Disp Refills prednisoLONE acetate (PRED FORTE) 1 % ophthalmic suspension [Pharmacy Med Name: PREDNISOLONE AC 1% EYE DROP] 5 mL 11 Sig: PLACE 1 DROP INTO BOTH EYES EVERY OTHER DAY Please review and advise. Nic Anderson MD filed at 04/29/2023 11:31 AM Status: Signed Encounter Diagnosis ICD-10-CM 1. 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 Retinal edema H35.81 OCT MACULA CIRRUS OU (BOTH EYES) 4. 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r degeneration of right eye with active choroidal neovascularization (HCC) H35.3211 5. Nonexudative age-related macular degeneration, left eye, intermediate dry stage H35.3122 ABMD OU - s/p SK OD S/p DMEK OU - pred daily OU CNVM OD - metamorphopsia first noted Jan 2023 - likely d/t wet AMD - OCT w/ SRF and IRF w/ numerous drusen burden Dry AMD OS - GA superior to fovea - continue AREDS2 BID Rec retina eval within 1 week for anti-vegf OD agree as per above [facility] Work Phone: 09-02-2023 Miscellaneous Notes Pharmacy electronically requesting refills as follows: Requested Prescriptions Pending Prescriptions Disp Refills prednisoLONE acetate (PRED FORTE) 1 % ophthalmic suspension [Pharmacy Med Name: PREDNISOLONE AC 1% EYE DROP] 5 mL 11 Sig: PLACE 1 DROP INTO BOTH EYES EVERY OTHER DAY Please review and advise. Nic Anderson MD filed at 04/29/2023 11:31 AM Status: Signed Encounter Diagnosis ICD-10-CM 1. 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 Retinal edema H35.81 OCT MACULA CIRRUS OU (BOTH EYES) 4. 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r degeneration of right eye with active choroidal neovascularization (HCC) H35.3211 5. Nonexudative age-related macular degeneration, left eye, intermediate dry stage H35.3122 ABMD OU - s/p SK OD S/p DMEK OU - pred daily OU CNVM OD - metamorphopsia first noted Jan 2023 - likely d/t wet AMD - OCT w/ SRF and IRF w/ numerous drusen burden Dry AMD OS - GA superior to fovea - continue AREDS2 BID Rec retina eval within 1 week for anti-vegf OD agree as per above documented in this encounter [facility] 08-05-2023 Note Date of Procedure 08/05/2023 [place] Protocol Safety Checklist Sign In: A moment to CARE completed, Patient name, date of , allergies and intended procedure verified, Special equipment verified, Appropriate PPE verified. Provider Confirms: Intended patient and procedure match the source document, Consent documented and matches the intended procedure, Correct side/site marked visible. Relevant labs, photos, and/or imaging studies have been reviewed. Medications required for procedure verified. Fire risk assessed and interventions discussed. Correct implant confirmed and expiration reviewed. Anesthesia 0.5 mL subconjunctival injection of 2% Lidocaine. Prep 5% Betadine. Injection Administration Medication: 1.25 mg bevacizumab (Jase's) 2.75 mg/0.11 mL Route: INTRAVITREAL, Site: Right Balance Wasted Residual medication less than 1 unit was discarded. Anterior Chamber Paracentesis No. Post Injection Evaluation Patient has at least hand motion vision. Post Procedure Medications None. Home Going Prescription None. Sign Out Sign out discussion completed, All instruments, equipment, and/or possible retained foreign bodies accounted for, Post-procedure follow up management communicated. Specimen containers correctly labeled. [facility] 08-05-2023 Note Date of Procedure 08/05/2023 [place] Protocol Safety Checklist Sign In: A moment to CARE completed, Patient name, date of , allergies and intended procedure verified, Special equipment verified, Appropriate PPE verified. Provider Confirms: Intended patient and procedure match the source document, Correct side/site marked visible, Consent documented and matches the intended procedure. Relevant labs, photos, and/or imaging studies have been reviewed. Medications required for procedure verified. Fire risk assessed and interventions discussed. Correct implant confirmed and expiration reviewed. Anesthesia 0.5 mL subconjunctival injection of 2% Lidocaine. Prep 5% Betadine. Injection Administration Medication: 1.25 mg bevacizumab (Jase's) 2.75 mg/0.11 mL Route: INTRAVITREAL, Site: Left Balance Wasted Residual medication less than 1 unit was discarded. Anterior Chamber Paracentesis No. Post Injection Evaluation Patient has at least hand motion vision. Post Procedure Medications None. Home Going Prescription None. Sign Out Sign out discussion completed, Post-procedure follow up management communicated, All instruments, equipment, and/or possible retained foreign bodies accounted for. Specimen containers correctly labeled. [facility] 08-05-2023 Instructions Brando Shields MD - 08/05/2023 9:24 AM EDT Post Injection Patient Information You had eye injection(s) today. These are your after injection instructions. Today: Preservative free artificial tears 1 drop every hour while awake as needed Tomorrow: Preservative free artificial tears 1 drop every 2 hours while awake as needed Care instructions after eye injections: Do not rub or touch your eye other than dabbing lightly with a tissue An [id number] pain reliever (i.e. Tylenol) can be used for mild soreness Use artificial tears/lubricating drops once an hour as needed for comfort (chill the tears in the refrigerator for more comfort). If you are using the tears more than 4 times a day they need to be the preservative free kind Warm or cool compresses are okay It is okay to shower and wash your face. No swimming pools or saunas for 24 hours COMMON symptoms after successful eye injections: Mild to moderate pain or irritation beginning the day of the injection. This should begin to improve the following day. Eyelash in the eye or shirley/gritty sensation Tearing Mild floaters or bubbles in your vision - usually resolves after 1-2 days Bloody tears for 1-2 days after treatment Eye Redness Also known as subconjunctival hemorrhage This bruise can cover the entire white part of the eye and may last a few weeks CONCERNING symptoms after eye injections: Severe, constant pain Worsening pain after the first day Decreased vision Severe, constant floaters Curtain or veil in your vision New eye redness that was not there after the injection and covers the whole eye Please call the office immediately for any of the above listed concerning symptoms or with any other questions. 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 Interpretation Right Eye Abnormal foveal contour. Findings include Drusen, RPE Irregularity, Atrophy; Negative for Intraretinal fluid, Subretinal fluid. Left Eye Abnormal foveal contour. Findings include Drusen, RPE Irregularity, Atrophy; Negative for Intraretinal fluid, Subretinal fluid. Interval Change Right Eye Stable. Left Eye Stable. [facility] 08-05-2023 Note HNO ID: [id number] Author: BRANDO SHIELDS MD Service: ? Author Type: Physician Type: Progress Notes Filed: 08/05/2023 09:25 Note Text: Referred by Dr. Anderson Age related macular degeneration - Smoking history: quit a long time ago; Family history: yes - Amsler grid and AREDS2 use reviewed. 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 - VA at start of therapy 20/40 - s/p Avastin, 5 weeks - OCT with resolved fluid - VA better Plan = - Avastin OD today LEFT EYE - Neovascular - atrophy sup to fovea - VA start of tx 20/30 - s/p Avastin, 5 weeks - OCT with resolved trace sliver of subretinal fluid inf, not a definitive Choroidal neovascular membrane - VA better Plan = - Avastin OS today F/U - Extend 6 weeks DTI OU ABMD both eyes - s/p SK OD (Goslillie) Fuch's Dystrophy, both eyes - S/p DMEK both eyes (Goshe) - pred daily OU Pseudophakia, both eyes - stable, observe Dry eye syndrome, both eyes - AT QID PRN - warm compresses and lid scrubs I have confirmed and edited as necessary the relevant ophthalmic history, ROS, reviewed the HPI and the neuro exam findings as obtained by others. I have seen and examined this patient. I have discussed the case and the management of this patient's care with the Resident, if applicable. I also have reviewed and agree with the assessment and plan as stated above and agree with all of its relevant components. [facility] 08-05-2023 History of Present illness Narrative Referred by Dr. Anderson Age related macular degeneration - Smoking history: quit a long time ago; Family history: yes - Amsler grid and AREDS2 use reviewed. 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 - VA at start of therapy 20/40 - s/p Avastin, 5 weeks - OCT with resolved fluid - VA better Plan = - Avastin OD today LEFT EYE - Neovascular - atrophy sup to fovea - VA start of tx 20/30 - s/p Avastin, 5 weeks - OCT with resolved trace sliver of subretinal fluid inf, not a definitive Choroidal neovascular membrane - VA better Plan = - Avastin OS today F/U - Extend 6 weeks DTI OU ABMD both eyes - s/p SK OD (Danielle) Fuch's Dystrophy, both eyes - S/p DMEK both eyes (Danielle) - pred daily OU Pseudophakia, both eyes - stable, observe Dry eye syndrome, both eyes - AT QID PRN - warm compresses and lid scrubs I have confirmed and edited as necessary the relevant ophthalmic history, ROS, reviewed the HPI and the neuro exam findings as obtained by others. I have seen and examined this patient. I have discussed the case and the management of this patient's care with the Resident, if applicable. I also have reviewed and agree with the assessment and plan as stated above and agree with all of its relevant components. documented in this encounter [facility] 07-19-2023 Telephone encounter Note Pt was notified via . [facility] 07-19-2023 Miscellaneous Notes Pt was notified via . Please Call patient if MyChart note not read to review results/released to My Chart if tests completed at [facility]: Normal vitamin D will monitor. Take over the counter vitamin D 2000 International Units daily with food. Happy to further review and discuss at follow up visit. Continue rest of treatment plan per instructions at last office visit. Thank you. 07/13/23 normal vitamin D 46.2; 06/03/23 eye exam age related macular degeneration treated with avastin, fuch's dystrophy, pseudophakia, dry eyes syndrome. 06/03/23 normal vitamin D 60.7; 03/05/23 low vitamin D 28.1;high glucose 137;normal cbc, cmp, esr 5, crp 0.4; documented in this encounter [facility] 07-17-2023 Telephone encounter Note Please Call patient if MyChart note not read to review results/released to My Chart if tests completed at [facility]: Normal vitamin D will monitor. Take over the counter vitamin D 2000 International Units daily with food. Happy to further review and discuss at follow up visit. Continue rest of treatment plan per instructions at last office visit. Thank you. 07/13/23 normal vitamin D 46.2; 06/03/23 eye exam age related macular degeneration treated with avastin, fuch's dystrophy, pseudophakia, dry eyes syndrome. 06/03/23 normal vitamin D 60.7; 03/05/23 low vitamin D 28.1;high glucose 137;normal cbc, cmp, esr 5, crp 0.4; [facility] 07-01-2023 Note Date of Procedure 07/01/2023. 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 Interpretation Right Eye Abnormal foveal contour. Findings include Drusen, RPE Irregularity, Atrophy; Negative for Intraretinal fluid, Subretinal fluid. Left Eye Abnormal foveal contour. Findings include Drusen, RPE Irregularity, Atrophy; Negative for Intraretinal fluid, Subretinal fluid. Interval Change Right Eye Better. Left Eye Better. [facility] 07-01-2023 Note Date of Procedure 07/01/2023 [place] Protocol Safety Checklist Sign In: A moment to CARE completed, Patient name, date of , allergies and intended procedure verified, Special equipment verified, Appropriate PPE verified. Provider Confirms: Intended patient and procedure match the source document, Correct side/site marked visible, Consent documented and matches the intended procedure. Relevant labs, photos, and/or imaging studies have been reviewed. Medications required for procedure verified. Fire risk assessed and interventions discussed. Correct implant confirmed and expiration reviewed. Anesthesia 0.5 mL subconjunctival injection of 2% Lidocaine. Prep 5% Betadine. Injection Administration Medication: 1.25 mg bevacizumab (Jase's) 2.75 mg/0.11 mL Route: INTRAVITREAL, Site: Left Balance Wasted Residual medication less than 1 unit was discarded. Anterior Chamber Paracentesis No. Post Injection Evaluation Patient has at least hand motion vision. Post Procedure Medications None. Home Going Prescription None. Sign Out Sign out discussion completed, Post-procedure follow up management communicated, All instruments, equipment, and/or possible retained foreign bodies accounted for. Specimen containers correctly labeled. [facility] 07-01-2023 Note Date of Procedure 07/01/2023 [place] Protocol Safety Checklist Sign In: A moment to CARE completed, Patient name, date of , allergies and intended procedure verified, Special equipment verified, Appropriate PPE verified. Provider Confirms: Intended patient and procedure match the source document, Consent documented and matches the intended procedure, Correct side/site marked visible. Relevant labs, photos, and/or imaging studies have been reviewed. Medications required for procedure verified. Fire risk assessed and interventions discussed. Correct implant confirmed and expiration reviewed. Anesthesia 0.5 mL subconjunctival injection of 2% Lidocaine. Prep 5% Betadine. Injection Administration Medication: 1.25 mg bevacizumab (Jase's) 2.75 mg/0.11 mL Route: INTRAVITREAL, Site: Right Balance Wasted Residual medication less than 1 unit was discarded. Anterior Chamber Paracentesis No. Post Injection Evaluation Patient has at least hand motion vision. Post Procedure Medications None. Home Going Prescription None. Sign Out Sign out discussion completed, All instruments, equipment, and/or possible retained foreign bodies accounted for, Post-procedure follow up management communicated. Specimen containers correctly labeled. [facility] 07-01-2023 Instructions Brando Shields MD - 07/01/2023 8:00 AM EDT Post Injection Patient Information You had eye injection(s) today. These are your after injection instructions. Today: Preservative free artificial tears 1 drop every hour while awake as needed Tomorrow: Preservative free artificial tears 1 drop every 2 hours while awake as needed Care instructions after eye injections: Do not rub or touch your eye other than dabbing lightly with a tissue An yhkt-wnr-cxauypf pain reliever (i.e. Tylenol) can be used for mild soreness Use artificial tears/lubricating drops once an hour as needed for comfort (chill the tears in the refrigerator for more comfort). If you are using the tears more than 4 times a day they need to be the preservative free kind Warm or cool compresses are okay It is okay to shower and wash your face. No swimming pools or saunas for 24 hours COMMON symptoms after successful eye injections: Mild to moderate pain or irritation beginning the day of the injection. This should begin to improve the following day. Eyelash in the eye or shirley/gritty sensation Tearing Mild floaters or bubbles in your vision - usually resolves after 1-2 days Bloody tears for 1-2 days after treatment Eye Redness Also known as subconjunctival hemorrhage This bruise can cover the entire white part of the eye and may last a few weeks CONCERNING symptoms after eye injections: Severe, constant pain Worsening pain after the first day Decreased vision Severe, constant floaters Curtain or veil in your vision New eye redness that was not there after the injection and covers the whole eye Please call the office immediately for any of the above listed concerning symptoms or with any other questions. 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 Author Type: Physician Type: Progress Notes Filed: 07/01/2023 08:16 Note Text: Referred by Dr. Anderson Age related macular degeneration - Smoking history: quit a long time ago; Family history: yes - Amsler grid and AREDS2 use reviewed. 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 I have seen and examined this patient. I have discussed the case and the management of this patient's care with the Resident, if applicable. I also have reviewed and agree with the assessment and plan as stated above and agree with all of its relevant components. [facility] 07-01-2023 History of Present illness Narrative Referred by Dr. Anderson Age related macular degeneration - Smoking history: quit a long time ago; Family history: yes - Amsler grid and AREDS2 use reviewed. 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 - VA at start of therapy 20/40 - s/p Avastin #2, 4 weeks - OCT with resolved fluid - VA better Plan = - Avastin OD today LEFT EYE - Neovascular - atrophy sup to fovea - VA start of tx 20/30 - s/p Avastin #1, 4 weeks - OCT with resolved trace sliver of subretinal fluid inf, not a definitive Choroidal neovascular membrane - VA stable Plan = - Avastin OS today F/U - 6 weeks DTI OU ABMD both eyes - s/p SK OD (Goshe) Fuch's Dystrophy, both eyes - S/p DMEK both eyes (Goshe) - pred daily OU Pseudophakia, both eyes - stable, observe Dry eye syndrome, both eyes - AT QID PRN - warm compresses and lid scrubs I have confirmed and edited as necessary the relevant ophthalmic history, ROS, reviewed the HPI and the neuro exam findings as obtained by others. I have seen and examined this patient. I have discussed the case and the management of this patient's care with the Resident, if applicable. I also have reviewed and agree with the assessment and plan as stated above and agree with all of its relevant components. documented in this encounter [facility] 06-23-2023 Telephone encounter Note Notify patient medication sent as requested Thank you. Patient's request for medication is as follows: Requested Prescriptions Pending Prescriptions Disp Refills DULoxetine (CYMBALTA) 60 mg capsule [Pharmacy Med Name: DULoxetine HCl 60 MG Oral Capsule Delayed Release Particles] 90 capsule 3 Sig: take 1 capsule by mouth daily Prescription(s) as above. Please process accordingly. Chalo Menjivar MD [facility] 06-23-2023 Miscellaneous Notes Notify patient medication sent as requested Thank you. Patient's request for medication is as follows: Requested Prescriptions Pending Prescriptions Disp Refills DULoxetine (CYMBALTA) 60 mg capsule [Pharmacy Med Name: DULoxetine HCl 60 MG Oral Capsule Delayed Release Particles] 90 capsule 3 Sig: take 1 capsule by mouth daily Prescription(s) as above. Please process accordingly. Chalo eMnjivar MD Images from the original note were not included. Most recent Rheumatology visit: 03/05/2023 (with Chalo Menjivar) Rheumatology Care Team: None on file Recent Office Visits - This Specialty 03/05/2023 Postmenopausal osteoporosis of multiple sites Rheumatology Chalo Menjivar MD 08/03/2022 Pseudogout involving multiple joints Rheumatology Chalo Menjivar MD 11/24/2021 Inflammatory arthritis Rheumatology Chalo Menjivar MD Upcoming Rheumatology Appointments - Next 365 Days Visit Type Date Time Department [facility] INJECT PROLIA 09/03/2023 1:30 PM [facility]HARA EST [facility] 11/29/2023 12:00 PM [facility] CBC: Latest Ref Rng & Units 08/03/2022 03/05/2023 CBC WBC 3.70 - 11.00 k/uL 8.45 8.47 Hemoglobin 11.5 - 15.5 g/dL 13.0 13.5 Hematocrit 36.0 - 46.0 % 42.0 43.9 Platelet Count 150 - 400 k/uL 293 362 Vitamin D: Latest Ref Rng & Units 03/05/2023 06/03/2023 Vitamin D Vitamin D 25 Hydroxy 31.0 - 80.0 ng/mL 28.1 60.7 LFT: Latest Ref Rng & Units 08/03/2022 03/05/2023 CMP Sodium 136 - 144 mmol/L 140 142 Potassium 3.7 - 5.1 mmol/L 4.8 4.3 Chloride 97 - 105 mmol/L 99 103 CO2 22 - 30 mmol/L 29 27 Glucose 74 - 99 mg/dL 85 137 BUN 7 - 21 mg/dL 16 20 Creatinine 0.58 - 0.96 mg/dL 0.76 0.74 Calcium 8.5 - 10.2 mg/dL 10.1 9.9 AST 13 - 35 U/L 16 17 ALT 7 - 38 U/L 6 8 Alkaline Phosphatase 34 - 123 U/L 90 74 Hepatic Function: Creatinine: Latest Ref Rng & Units 08/03/2022 03/05/2023 Creatinine Creatinine 0.58 - 0.96 mg/dL 0.76 0.74 ESR/CRP: Latest Ref Rng & Units 08/03/2022 03/05/2023 ESR, WSR WSR 0 - 20 mm/hr 8 5 Latest Ref Rng & Units 08/03/2022 03/05/2023 CRP CRP <0.9 mg/dL 0.3 0.4 Uric Acid: None on file in the last 6 months Open Standing (Multiple Instance) Lab Orders None Open Future (Single Instance) Lab Orders Expected Expires Ordered VITAMIN D 25 HYDROXY [SQVITD] 04/15/23 07/15/23 03/17/23 Auth. provider: Chalo Menjivar MD Assoc. diagnoses: Vitamin D deficiency Latesha Aguero MA June 23, 2023 8:25 AM documented in this encounter [facility] 06-23-2023 Telephone encounter Note Images from the original note were not included. Most recent Rheumatology visit: 03/05/2023 (with Chalo Menjivar) Rheumatology Care Team: None on file Recent Office Visits - This Specialty 03/05/2023 Postmenopausal osteoporosis of multiple sites Rheumatology Chalo Menjivar MD 08/03/2022 Pseudogout involving multiple joints Rheumatology Chalo Menjivar MD 11/24/2021 Inflammatory arthritis Rheumatology Chalo Menjivar MD Upcoming Rheumatology Appointments - Next 365 Days Visit Type Date Time Department [facility] INJECT PROLIA 09/03/2023 1:30 PM [facility]ARA EST [facility] 11/29/2023 12:00 PM [facility] CBC: Latest Ref Rng & Units 08/03/2022 03/05/2023 CBC WBC 3.70 - 11.00 k/uL 8.45 8.47 Hemoglobin 11.5 - 15.5 g/dL 13.0 13.5 Hematocrit 36.0 - 46.0 % 42.0 43.9 Platelet Count 150 - 400 k/uL 293 362 Vitamin D: Latest Ref Rng & Units 03/05/2023 06/03/2023 Vitamin D Vitamin D 25 Hydroxy 31.0 - 80.0 ng/mL 28.1 60.7 LFT: Latest Ref Rng & Units 08/03/2022 03/05/2023 CMP Sodium 136 - 144 mmol/L 140 142 Potassium 3.7 - 5.1 mmol/L 4.8 4.3 Chloride 97 - 105 mmol/L 99 103 CO2 22 - 30 mmol/L 29 27 Glucose 74 - 99 mg/dL 85 137 BUN 7 - 21 mg/dL 16 20 Creatinine 0.58 - 0.96 mg/dL 0.76 0.74 Calcium 8.5 - 10.2 mg/dL 10.1 9.9 AST 13 - 35 U/L 16 17 ALT 7 - 38 U/L 6 8 Alkaline Phosphatase 34 - 123 U/L 90 74 Hepatic Function: Creatinine: Latest Ref Rng & Units 08/03/2022 03/05/2023 Creatinine Creatinine 0.58 - 0.96 mg/dL 0.76 0.74 ESR/CRP: Latest Ref Rng & Units 08/03/2022 03/05/2023 ESR, WSR WSR 0 - 20 mm/hr 8 5 Latest Ref Rng & Units 08/03/2022 03/05/2023 CRP CRP <0.9 mg/dL 0.3 0.4 Uric Acid: None on file in the last 6 months Open Standing (Multiple Instance) Lab Orders None Open Future (Single Instance) Lab Orders Expected Expires Ordered VITAMIN D 25 HYDROXY [SQVITD] 04/15/23 07/15/23 03/17/23 Auth. provider: Chalo Menjivar MD Assoc. diagnoses: Vitamin D deficiency Latesha Aguero MA June 23, 2023 8:25 AM [facility] 06-07-2023 Telephone encounter Note patient has viewed the [employer] message per Skype. [facility] 06-07-2023 Miscellaneous Notes patient has viewed the [employer] message per Skype. Please Call patient if Vigilant Solutionshart note not read to review results/released to My Chart if tests completed at [facility]: Improved/ normal vitamin D will monitor. Take over the counter vitamin D 2000 International Units daily with food. Happy to further review and discuss at follow up visit. Continue rest of treatment plan per instructions at last office visit. Thank you. 06/03/23 eye exam age related macular degeneration treated with avastin, fuch's dystrophy, pseudophakia, dry eyes syndrome. 06/03/23 normal vitamin D 60.7; 03/05/23 low vitamin D 28.1;high glucose 137;normal cbc, cmp, esr 5, crp 0.4; documented in this encounter [facility] 06-05-2023 Telephone encounter Note Please Call patient if [employer] note not read to review results/released to My Chart if tests completed at [facility]: Improved/ normal vitamin D will monitor. Take over the counter vitamin D 2000 International Units daily with food. Happy to further review and discuss at follow up visit. Continue rest of treatment plan per instructions at last office visit. Thank you. 06/03/23 eye exam age related macular degeneration treated with avastin, fuch's dystrophy, pseudophakia, dry eyes syndrome. 06/03/23 normal vitamin D 60.7; 03/05/23 low vitamin D 28.1;high glucose 137;normal cbc, cmp, esr 5, crp 0.4; [facility] 06-03-2023 Note Date of Procedure 06/03/2023 [place] Protocol Safety Checklist Sign In: A moment to CARE completed, Patient name, date of , allergies and intended procedure verified, Special equipment verified, Appropriate PPE verified. Provider Confirms: Intended patient and procedure match the source document, Consent documented and matches the intended procedure, Correct side/site marked visible. Relevant labs, photos, and/or imaging studies have been reviewed. Medications required for procedure verified. Fire risk assessed and interventions discussed. Correct implant confirmed and expiration reviewed. Anesthesia 0.5 mL subconjunctival injection of 2% Lidocaine. Prep 5% Betadine. Injection Administration Medication: 1.25 mg bevacizumab (Jase's) 2.75 mg/0.11 mL Route: INTRAVITREAL, Site: Right Balance Wasted Residual medication less than 1 unit was discarded. Anterior Chamber Paracentesis No. Post Injection Evaluation Patient has at least hand motion vision. Post Procedure Medications None. Home Going Prescription None. Sign Out Sign out discussion completed, All instruments, equipment, and/or possible retained foreign bodies accounted for, Post-procedure follow up management communicated. Specimen containers correctly labeled. [facility] 06-03-2023 Note Date of Procedure 06/03/2023 [place] Protocol Safety Checklist Sign In: A moment to CARE completed, Patient name, date of , allergies and intended procedure verified, Special equipment verified, Appropriate PPE verified. Provider Confirms: Intended patient and procedure match the source document, Correct side/site marked visible, Consent documented and matches the intended procedure. Relevant labs, photos, and/or imaging studies have been reviewed. Medications required for procedure verified. Fire risk assessed and interventions discussed. Correct implant confirmed and expiration reviewed. Anesthesia 0.5 mL subconjunctival injection of 2% Lidocaine. Prep 5% Betadine. Injection Administration Medication: 1.25 mg bevacizumab (Jase's) 2.75 mg/0.11 mL Route: INTRAVITREAL, Site: Left Balance Wasted Residual medication less than 1 unit was discarded. Anterior Chamber Paracentesis No. Post Injection Evaluation Patient has at least hand motion vision. Post Procedure Medications None. Home Going Prescription None. Sign Out Sign out discussion completed, Post-procedure follow up management communicated, All instruments, equipment, and/or possible retained foreign bodies accounted for. Specimen containers correctly labeled. [facility] 06-03-2023 Instructions Brando Shields MD - 06/03/2023 10:11 AM EDT Post Injection Patient Information You had eye injection(s) today. These are your after injection instructions. Today: Preservative free artificial tears 1 drop every hour while awake as needed Tomorrow: Preservative free artificial tears 1 drop every 2 hours while awake as needed Care instructions after eye injections: Do not rub or touch your eye other than dabbing lightly with a tissue An qnsr-pto-puqlimh pain reliever (i.e. Tylenol) can be used for mild soreness Use artificial tears/lubricating drops once an hour as needed for comfort (chill the tears in the refrigerator for more comfort). If you are using the tears more than 4 times a day they need to be the preservative free kind Warm or cool compresses are okay It is okay to shower and wash your face. No swimming pools or saunas for 24 hours COMMON symptoms after successful eye injections: Mild to moderate pain or irritation beginning the day of the injection. This should begin to improve the following day. Eyelash in the eye or shirley/gritty sensation Tearing Mild floaters or bubbles in your vision - usually resolves after 1-2 days Bloody tears for 1-2 days after treatment Eye Redness Also known as subconjunctival hemorrhage This bruise can cover the entire white part of the eye and may last a few weeks CONCERNING symptoms after eye injections: Severe, constant pain Worsening pain after the first day Decreased vision Severe, constant floaters Curtain or veil in your vision New eye redness that was not there after the injection and covers the whole eye Please call the office immediately for any of the above listed concerning symptoms or with any other questions. 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 [employer] Information Teaseler: CD. Interpretation Right Eye Abnormal foveal contour. Findings include Intraretinal fluid, Drusen, RPE Irregularity, Atrophy; Negative for Subretinal fluid. Left Eye Abnormal foveal contour. Findings include Subretinal fluid, Drusen, RPE Irregularity, Atrophy; Negative for Intraretinal fluid. Interval Change Right Eye Better. Left Eye Worse. [facility] 06-03-2023 Note HNO ID: [id number] Author: BRANDO SHIELDS MD Service: ? Author Type: Physician Type: Progress Notes Filed: 06/03/2023 10:13 Note Text: Referred by Dr. Anderson Age related macular degeneration - Smoking history: quit a long time ago; Family history: yes - Amsler grid and AREDS2 use reviewed. 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 I have seen and examined this patient. I have discussed the case and the management of this patient's care with the Resident, if applicable. I also have reviewed and agree with the assessment and plan as stated above and agree with all of its relevant components. [facility] 06-03-2023 History of Present illness Narrative Referred by Dr. Anderson Age related macular degeneration - Smoking history: quit a long time ago; Family history: yes - Amsler grid and AREDS2 use reviewed. 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 - VA at start of therapy 20/40 - s/p Avastin #1, 4 weeks - OCT with resolved fluid - VA better Plan = - Avastin OD today LEFT EYE - Neovascular - atrophy sup to fovea - VA start of tx 20/30 - OCT with worse trace sliver of subretinal fluid inf, not a definitive Choroidal neovascular membrane - VA stable Plan = - Avastin OS today F/U - 1 month DTI OU ABMD both eyes - s/p SK OD (Goslillei) Fuch's Dystrophy, both eyes - S/p DMEK both eyes (Goshe) - pred daily OU Pseudophakia, both eyes - stable, observe Dry eye syndrome, both eyes - AT QID PRN - warm compresses and lid scrubs I have confirmed and edited as necessary the relevant ophthalmic history, ROS, reviewed the HPI and the neuro exam findings as obtained by others. I have seen and examined this patient. I have discussed the case and the management of this patient's care with the Resident, if applicable. I also have reviewed and agree with the assessment and plan as stated above and agree with all of its relevant components. documented in this encounter [facility] 05-06-2023 Note HNO ID: [id number] Author: BRANDO SHIELDS MD Service: ? Author Type: Physician Type: Progress Notes Filed: 05/06/2023 10:20 Note Text: Referred by Dr. Anderson Age related macular degeneration - Smoking history: quit a long time ago; Family history: yes - Amsler grid and AREDS2 use reviewed. 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 I have seen and examined this patient. I have discussed the case and the management of this patient's care with the Resident, if applicable. I also have reviewed and agree with the assessment and plan as stated above and agree with all of its relevant components. [facility] 04-29-2023 Note HNO ID: [id number] Author: NIC ANDERSON MD Service: ? Author Type: Physician Type: Progress Notes Filed: 04/29/2023 11:31 Note Text: Encounter Diagnosis ICD-10-CM 1. 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 Retinal edema H35.81 OCT MACULA CIRRUS OU (BOTH EYES) 4. 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r degeneration of right eye with active choroidal neovascularization (HCC) H35.3211 5. Nonexudative age-related macular degeneration, left eye, intermediate dry stage H35.3122 ABMD OU - s/p SK OD S/p DMEK OU - pred daily OU CNVM OD - metamorphopsia first noted Jan 2023 - likely d/t wet AMD - OCT w/ SRF and IRF w/ numerous drusen burden Dry AMD OS - GA superior to fovea - continue AREDS2 BID Rec retina eval within 1 week for anti-vegf OD agree as per above I have confirmed and edited as necessary the relevant ophthalmic history, ROS, and the neuro exam findings as obtained by others. I have seen and examined this patient. I have discussed the case and the management of this patient's care with the Resident/Fellow, if applicable. I also have reviewed and agree with the assessment and plan as stated above and agree with all of its relevant components. Nic Anderson MD [facility] 04-29-2023 History of Present illness Narrative Encounter Diagnosis ICD-10-CM 1. 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 Retinal edema H35.81 OCT MACULA CIRRUS OU (BOTH EYES) 4. 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r degeneration of right eye with active choroidal neovascularization (HCC) H35.3211 5. Nonexudative age-related macular degeneration, left eye, intermediate dry stage H35.3122 ABMD OU - s/p SK OD S/p DMEK OU - pred daily OU CNVM OD - metamorphopsia first noted Jan 2023 - likely d/t wet AMD - OCT w/ SRF and IRF w/ numerous drusen burden Dry AMD OS - GA superior to fovea - continue AREDS2 BID Rec retina eval within 1 week for anti-vegf OD agree as per above I have confirmed and edited as necessary the relevant ophthalmic history, ROS, and the neuro exam findings as obtained by others. I have seen and examined this patient. I have discussed the case and the management of this patient's care with the Resident/Fellow, if applicable. I also have reviewed and agree with the assessment and plan as stated above and agree with all of its relevant components. Nic Anderson MD documented in this encounter [facility] 03-05-2023 Note HNO ID: [id number] Author: CHALO MENJIVAR MD Service: ? Author Type: Physician Type: Progress Notes Filed: 03/05/2023 14:50 Note Text: Face to face Follow up for rheumatoid arthritis/pseudogout/ degenerative joint disease/joint pain/psoriasis/clinical osteoporosis Today's visit 03/05/23:Patient here requesting prolia. Did fine with last prolia 08/31/22. No dental work planned. Not taking antibiotics. No signs or symptoms of infection. No recent oral steroids. Taking mobic, cymbalta, arimidex, tylenol, vitamin b12, vitamin D 4000 International Units daily with food, hctz. Was able to travel to [place] last year. [facility] 09/01/22 bmd osteopenia/stable 10/2022 +COVID19 infection could not tolerated paxlovid Few weeks later developed severe dizziness/vertigo, started PT with some improvement Then saw primary care provider, high BP Due for cardiac stress test, reports vision different, stable CT head Requesting to see /ophthalmology High stress daughter s/p lumbar surgery for scoliosis/lots of hardware Using cane. limited exercise due to dizziness. no swelling. Chronic current pain in knees, low back, less hip/feet pain. Pain worse in AM. Better with tylenol. Reports pain 3-4/10. Has minimal AM stiffness. COVID vaccine 03/08/20, 03/29/20, 12/25/20, 01/23/22. Feels safe at home. Has enough food, supplies and medications. Overall mildly uncomfortable but happy with rheum care. No falls/fx/trauma/illness/oral sores/rash/hairloss/jaw pain/dysphagia/epistaxis/hemoptys is since last visit. No adverse effects with meds. No other complaints. Patient denies fever, chills, cp, dyspnea, nausea, vomiting, night sweats, scalp tenderness, visual changes, murcia, bowel/bladder changes, weight changes or other complaints. Last visit supportive care, restart fall precautions, limit basement visits, use cane everywhere, see neurosurgery, start prolia if approved since missed/intolerant of weekly fosamax for abnormal BMD/on alf arimidex, see oncology, follow up with PCP/ENT for sinus headache care, increase water intake, f/u podiatry, prn lidocaine ointment, f/u with ortho, see derm if rash/psoriasis persists/worsens/has topicals, OFF plaquenil/restart if high APRs, see ophthalmology, vit D 4000 International Units daily, in future may consider starting colcrys/dmards/methotrexate (patient declined at this time), restart PT exercises/start chair exercises, daily cymbalta, daily 15mg mobic, prn lidocaine if approved, minimal response with bufferin, prn heat/otc arthritis/tylenol, start low impact weightbearing exercise, calcium citrate 08/03/22:due for labs. Due for bmd after 08/26/22. taking cymbalta 60mg daily, missed fosamax/seeing GI for GI upset/possible IBS, arimidex, vitamin D 4000 International Units daily with food, vitamin b12, tylenol, hctz. Not taking calcium. 11/2021 fell going to [employer] [place], chipped a tooth. Had kidney stone 3weeks afterwards. tibial psoriasis. No recent oral steroids. 04/14/22 eye exam. 02/23/22 s/p right eye excisio corneal lesion. limited exercise due to pain. Using cane. Better with two tylenol. Occasional more if traveling. Hard to take on and off rings swelling. Chronic current pain in hands, wrists, feet, knees, back, hips. Reports pain /10. Has minimal AM stiffness. [place] COVID vaccine 03/08/20, 03/29/20, 12/25/20, 01/23/22. Feels safe at home. Has enough food, supplies and medications. Overall mildly uncomfortable but happy with rheum care. No falls/fx/trauma/illness/oral sores/rash/hairloss/jaw pain/dysphagia/epistaxis/hemoptys is since last visit. No adverse effects with meds. No other complaints. Patient denies fever, chills, cp, dyspnea, nausea, vomiting, night sweats, scalp tenderness, visual changes, murcia, bowel/bladder changes, weight changes or other complaints. Last visit supportive care, restart fall precautions, limit basement visits, use cane everywhere, see neurosurgery, weekly fosamax for abnormal BMD/on alf arimidex, patient will notify office if interested in switching to prolia/IV reclast since missing fosamax, see oncology, follow up with PCP/ENT for sinus headache care, increase water intake, f/u podiatry, prn lidocaine ointment, f/u with ortho, see derm if rash/psoriasispersists/worsens/murcia s topicals, OFF plaquenil/restart if high APRs, see ophthalmology, vit D 4000 International Units daily, in future may consider starting colcrys/dmards/methotrexate (patient declined at this time), restart PT exercises/start chair exercises, daily cymbalta, daily 15mg mobic, prn lidocaine if approved, minimal response with bufferin, prn heat/otc arthritis/tylenol, start low impact weightbearing exercise, calcium citrate 11/24/21:2weeks ago fell/tripped on parking lot to [employer] outside on L shoulder, L wrist, chipped tooth, broke glasses. Did not have her cane.OFF p (more content not included)... [facility] 01-03-2023 Miscellaneous Notes Received page that patient had called. Spoke to them on the phone at 2:45 PM History is notable for the following pertinent items: New SIMON noted, mild irritation Rubbed her eye when waking up No pain, redness, floaters, flashes, curtain, vision changes Reviewed if the patient experiences any significant change in symptoms, worsening vision, pain or new symptoms, they should call back or go to the ED. Provided eye clinic number [phone] or [phone]. Reminded pt they may call back at any time Patient verbalized understanding. Paulo Fagan MD documented in this encounter [facility] 12-08-2022 History of Present illness Narrative Subjective Fantasma Lewis is a 82 y.o. female HPI Patient returns in follow-up of problems as noted. In the interim she is done well. She denies any breakthroughs of SVT. From time to time she has vertigo. This was discussed in tremendous detail. She apparently is under the treatment of physical therapy for labyrinthine crystals and this appears to dramatically improve her vertiginous symptomatology She otherwise doing well. She has no orthostatic symptoms and no episodes of SVT on current therapy. Because of all the above we suggest continued therapy as before without change. Visit Vitals BP 162/88 (BP Location: Left arm, Patient Position: Sitting) Pulse 87 Ht 1.6 m (5' 3 ) Wt 75.3 kg (166 lb) BMI 29.41 kg/m Smoking Status Former BSA 1.83 m EKG done in office today Objective Physical Exam Constitutional: Appearance: Normal appearance. She is normal weight. HENT: Nose: Nose normal. Neck: Vascular: No carotid bruit. Cardiovascular: Rate and Rhythm: Normal rate. Pulses: Normal pulses. Heart sounds: Normal heart sounds. Pulmonary: Effort: Pulmonary effort is normal. Abdominal: General: Bowel sounds are normal. Palpations: Abdomen is soft. Genitourinary: Rectum: Normal. Musculoskeletal: General: Normal range of motion. Cervical back: Normal range of motion. Right lower leg: No edema. Left lower leg: No edema. Skin: General: Skin is warm and dry. Neurological: General: No focal deficit present. Mental Status: She is alert. Psychiatric: Mood and Affect: Mood normal. Behavior: Behavior normal. Thought Content: Thought content normal. Judgment: Judgment normal. Current Medications Current Outpatient Medications: acetaminophen (Tylenol) 500 mg tablet, Take 2 tablets (1,000 mg) by mouth every 6 hours if needed., Disp: , Rfl: albuterol 90 mcg/actuation inhaler, if needed., Disp: , Rfl: anastrozole (Arimidex) 1 mg tablet, 1 tablet (1 mg total) once daily., Disp: , Rfl: cholecalciferol (Vitamin D-3) 50 MCG (2000 UT) tablet, Take 2 tablets (4,000 Units) by mouth once daily., Disp: , Rfl: cyanocobalamin (Vitamin B-12) 1,000 mcg tablet, Take 3 tablets (3,000 mcg) by mouth once daily., Disp: , Rfl: DULoxetine (Cymbalta) [address] capsule, 1 capsule (60 mg) once daily., Disp: , Rfl: levothyroxine (Synthroid, Levoxyl) 88 mcg tablet, 1 tablet (88 mcg) once daily in the morning. Take before meals., Disp: , Rfl: meloxicam (Mobic) 15 mg tablet, 1 tablet (15 mg) once daily., Disp: , Rfl: omeprazole (PriLOSEC) [address] capsule, 1 capsule (40 mg) once daily., Disp: , Rfl: verapamil ER (Veralan PM) 240 mg 24 hr capsule, Take 1 capsule (240 mg) by mouth once daily., Disp: , Rfl: Assessment/Plan 1. Vertigo After detailed questioning I do not believe her sense of dizziness is related to blood pressure. It sounds classically vertiginous 2. SVT (supraventricular tachycardia) No recurrence on current therapy with verapamil. 3. Overweight (BMI 25.0-29.9) The merits of diet and weight loss were advocated. documented in this encounter [facility] Work Phone: 12-08-2022 Instructions Karime Monet CMA - 12/08/2022 10:40 AM EDT Please bring all medicines, vitamins, and herbal supplements with you when you come to the office. Prescriptions will not be filled unless you are compliant with your follow up appointments or have a follow up appointment scheduled as per instruction of your physician. Refills should be requested at the time of your visit. Fall Prevention Education Given documented in this encounter [facility] Work Phone: 09-14-2022 Miscellaneous Notes Pt identified by name and Pt given message below Stated understanding Left message for patient to call office regarding below. Please Call patient if MyChart note not read to review results/released to My Chart if tests completed at [facility]: Bone mineral density shows osteopenia/stable. Happy to further review and discuss at follow up visit. Continue rest of treatment plan per instructions at last office visit. Thank you. [facility] 09/01/22 bmd osteopenia/stable L1-4 1.298g/cm2, tscore 2.3, zscore 5; Left fem neck 0.795g/cm2, tscore-0.5, zscore 1.8; Left total hip 0.909g/cm2, tscore-0.3, zscore1.8; Right fem nec 0.796g/cm2, tscore-0.5, zscore1.8; Right total hip 0.920g/cm2, tscore-0., zscore1.9; Left 1/3 forearm 0.606g/cm2, tscore-1.3, zscore1.9; 08/03/22 normal cbc, cmp, esr 8(8), crp 0.3 (0.9), vitamin D 41.2, vitamin [id number], uric acid 3.1; --- [facility] 08/26/20 bmd osteopenia/improved spine/decreased forearm L1-4 1.348g/cm2, tscore 2.7, zscore 5.3;improved by 8.4% prior L fem neck 0.789g/cm2, tscore-0.7, zscore1.5;L total hip 0.948g/cm2, tscore0,zscore2.0;R fem neck 0.823g/cm2, tscore-0.2, zscore2.0;R total hip 0.952g/cm2, tscore0.1, zscore2.1; L 1/3 forearm 0.603g/cm2, tscore-1.4, zscore1.6;decreased -2.2% to prior imaging Received BMD reports from [facility]. Placed on your desk for review. documented in this encounter [facility] 08-31-2022 Miscellaneous Notes Patient has been notified. rx sent LV: 04/14/22 [facility]: 10/22/22 If you want patient to continue with steroid drop she will need a refill sent [facility] in [place]. Please advise. Nic Anderson MD filed at 04/14/2022 12:40 PM Status: Signed Encounter Diagnosis ICD-10-CM 1. 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 Pseudophakia Z96.1 s/p keratectomy OD -- good improvement obj/subj new mrx for glasses decrease pred acetate 1% OD to every day, continue pred acetate 1% every day od follow-up 6 months mrx iop ou confocal film coater ou poss keratectomy OS in future once symptoms warrant I have confirmed and edited as necessary the relevant ophthalmic history, ROS, and the neuro exam findings as obtained by others. I have seen and examined this patient. I have discussed the case and the management of this patient's care with the Resident/Fellow, if applicable. I also have reviewed and agree with the assessment and plan as stated above and agree with all of its relevant components. Nic Anderson MD documented in this encounter [facility] 08-05-2022 Miscellaneous Notes Called and spoke to patient. She is aware of message below from Dr. Menjivar. Patient verbalized understanding. Please Call patient if MyChart note not read to review results/released to My Chart if tests completed at [facility]: Improved/ stable labs and no inflammation. Continue same vitamin D intake with food. Happy to further review and discuss at follow up visit. Continue rest of treatment plan per instructions at last office visit. Thank you. 08/03/22 normal cbc, cmp, esr 8(8), crp 0.3 (0.9), vitamin D 41.2, vitamin [id number], uric acid 3.1; documented in this encounter [facility] 05-19-2022 Evaluation note Encounter Date Diagnosis Assessment Notes May, Irritable bowel syndrome with both constipation and diarrhea (ICD-10 - K58.2) Continue dicyclomine 10 mg three times a day as needed Continue imodium as needed Continue probiotic as needed Rto 1 yr May, GERD (gastroesophage al reflux disease) (ICD-10 - K21.9) Continue Omeprazole 40 mg daily [facility] Other 03-07-2023 History of Present illness Narrative* Nic Anderson MD - 04/14/2022 12:36 PM EST Encounter Diagnosis ICD-10-CM 1. 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 Pseudophakia Z96.1 s/p keratectomy OD -- good improvement obj/subj new mrx for glasses decrease pred acetate 1% OD to every day, continue pred acetate 1% every day od follow-up 6 months mrx iop ou confocal film coater ou poss keratectomy OS in future once symptoms warrant I have confirmed and edited as necessary the relevant ophthalmic history, ROS, and the neuro exam findings as obtained by others. I have seen and examined this patient. I have discussed the case and the management of this patient's care with the Resident/Fellow, if applicable. I also have reviewed and agree with the assessment and plan as stated above and agree with all of its relevant components. Nic Anderson MD [facility]* Encounter Date Diagnosis Assessment Notes Treatment Notes Treatment Clinical Notes Feb, GERD (gastroesophageal reflux disease) (ICD-10 - K21.9) [facility] Other 01-24-2023 History of Present illness Narrative* Nic Anderson MD - 03/03/2022 1:41 PM EST Encounter Diagnosis ICD-10-CM 1. 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 I have seen and examined this patient. I have discussed the case and the management of this patient's care with the Resident/Fellow, if applicable. I also have reviewed and agree with the assessment and plan as stated above and agree with all of its relevant components. Nic Anderson MD [facility] Instructions* Patient Instructions* Nic Anderson MD - 01/27/2022 3:38 PM EST INSTRUCTIONS FOR SCHEDULING SURGERY: CONTACT DR. ANDERSON'S COMPOSITION WEATHERBOARD APPLIER: MICKIE BALDERAS AT [phone] (9AM-5PM, WEDNESDAY-WEDNESDAY) - IF YOU RECEIVE VOICEMAIL, PLEASE LEAVE A MESSAGE AND WE WILL RETURN YOUR CALL - MY EVALUATION ASSISTANT WILL INFORM YOU IF ANY ADDITIONAL PREOPERATIVE TESTING IS REQUIRED, INCLUDING A PRE-OPERATIVE PHYSICAL (REQUIRED FOR ALL PROCEDURES IN WHICH ANESTHESIA IS INVOLVED) - YOU WILL NEED A PERSON (NOT A TAXI, BUS OR UBER) TO TAKE YOU HOME ON THE DAY OF SURGERY - ONCE A SURGICAL DATE(s) HAS BEEN SET, YOU WILL RECEIVE A PHONE CALL ON THE BUSINESS DAY PRIOR TO SURGERY TO GIVE YOU YOUR EXACT ARRIVAL TIME - ARRIVAL TIMES ARE TYPICALLY 1 HOUR BEFORE YOUR PROCEDURE IS SCHEDULED TO TAKE PLACE, ALTHOUGH THIS MAY VARY BASED ON THE TYPE OF PROCEDURE YOU ARE HAVING DONE AND EXTRINSIC FACTORS WHICH MAY AFFECTTHE SCHEDULE ON THE DAY OF SURGERY - IF YOU ARE RECEIVING ANESTHESIA (WHICH INCLUDES MOST PROCEDURES EXCEPT FOR THOSE WHICH ARE LOCAL ANESTHESIA ONLY), YOU WILL NEED TO FAST FOR 8 HOURS BEFORE YOUR SCHEDULED SURGERY TIME. SPECIFIC DETAILS REGARDING DAY OF SURGERY INSTRUCTIONS INCLUDING WHETHER YOU NEED TO STOP ANY EXISTING MEDICATIONS WILL BE EXPLAINED AT YOUR PRE-OPERATIVE PHYSICAL. - YOU HAVE ANY ADDITIONAL CONCERNS OR QUESTIONS, CALL DR. ANDERSON'S OFFICE AT [phone] (PRESS 0 TO BYPASS THE AUTOMATED GREETING AND BE TRANSFERRED TO AN MID LEVEL JAVA DEVELOPER) [facility] History of Present illness Narrative* Nic Anderson MD - 01/27/2022 3:28 PM EST Encounter Diagnosis ICD-10-CM 1. 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 Pseudophakia Z96.1 3. PCO (posterior capsular opacification), bilateral H26.493 4. 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 I offered her surgical intervention. All risks,benefits, alternatives, teaching discussed with patient who consents. Adequate time given to allow for questions and answers. OFFER keratectomy OD first, consider OS once od stable s/p DMEK OU - clear graft - continue every other day pred acetate 1% mild pco ou - observe I have confirmed and edited as necessary the relevant ophthalmic history, ROS, and the neuro exam findings as obtained by others. I have seen and examined this patient. I have discussed the case and the management of this patient's care with the Resident/Fellow, if applicable. I also have reviewed and agree with the assessment and plan as stated above and agree with all of its relevant components. Nic Anderson MD [facility] Evaluation note* Encounter Date Diagnosis Assessment Notes Treatment Notes Treatment Clinical Notes Nov, Irritable bowel syndrome with both constipation and diarrhea (ICD-10 - K58.2) HAVE IMPROVED WITH TAKING THE MEDICATION EVERYDAY ENCOURAGED IMODIUM NEEDED. Nov, GERD (gastroesophageal reflux disease) (ICD-10 - K21.9) PATIENT WILL GET BREAKTHROUGH ABOUT ONCE A WEEK. PATIENT TO CONTINUE ON THE MEDICATION AND USE TUMS NEEDED. [facility] Other 10-11-2022 Hospital Discharge instructions Patient Education 11/18/2021 11:01:39 Dietary Guidelines to Help Prevent Kidney Stones Dietary Guidelines to Help Prevent Kidney Stones Kidney stones are deposits of minerals and salts that form inside your kidneys. Your risk of developing kidney stones may be greater depending on your diet, your lifestyle, the medicines you take, and whether you have certain medical conditions. Most people can reduce their chances of developing kidney stones by following the instructions below. Depending on your overall health and the type of kidney stones you tend to develop, your dietitian may give you more specific instructions. What are tips for following this plan? Reading food labels Choose foods with no salt added or low-salt labels. Limit your sodium intake to less than 1500 mg per day. Choose foods with calcium for each meal and snack. Try to eat about 300 mg of calcium at each meal.Foods that contain 200 500 mg of calcium per serving include: ?8 oz (237 ml) of milk, fortified nondairy milk, and fortified fruit juice. ?8 oz (237 ml) of kefir, yogurt, and soy yogurt. ?4 oz (118 ml) of tofu. ?1 oz of cheese. ?1 cup (300 g) of dried figs. ?1 cup (91 g) of cooked broccoli. ?1 3 oz can of sardines or mackerel. Most people need 1000 to 1500 mg of calcium each day. Talk to your dietitian about how much calciumis recommended for you. Shopping Buy plenty of fresh fruits and vegetables. Most people do not need to avoid fruits and vegetables, even if they contain nutrients that may contribute to kidney stones. When shopping for convenience foods, choose: ?Whole pieces of fruit. ?Premade salads with dressing on the side. ?Low-fat fruit and yogurt smoothies. Avoid buying frozen meals or prepared deli foods. Look for foods with live cultures, such as yogurt and kefir. Cooking Do not add salt to food when cooking. Place a salt shaker on the table and allow each person to addhis or her own salt to taste. Use vegetable protein, such as beans, textured vegetable protein (TVP), or tofu instead of meat in pasta, casseroles, and soups. Meal planning Eat less salt, if told by your dietitian. To do this: ?Avoid eating processed or premade food. ?Avoid eating fast food. Eat less animal protein, including cheese, meat, poultry, or fish, if told by your dietitian. To dothis: ?Limit the number of times you have meat, poultry, fish, or cheese each week. Eat a diet free of meat at least 2 days a week. ?Eat only one serving each day of meat, poultry, fish, or seafood. ?When you prepare animal protein, cut pieces into small portion sizes. For most meat and fish, one serving is about the size of one deck of cards. Eat at least 5 servings of fresh fruits and vegetables each day. To do this: ?Keep fruits and vegetables on hand for snacks. ?Eat 1 piece of fruit or a handful of berries with breakfast. ?Have a salad and fruit at lunch. ?Have two kinds of vegetables at dinner. Limit foods that are high in a substance called oxalate. These include: ?Spinach. ?Rhubarb. ?Beets. ?Potato chips and lao fries. ?Nuts. If you regularly take a diuretic medicine, make sure to eat at least 1 2 fruits or vegetables high in potassium each day. These include: ?Avocado. ?Banana. ?Arminto, prune, carrot, or tomato juice. ?Baked potato. ?Cabbage. ?Beans and split peas. General instructions Drink enough fluid to keep your urine clear or pale yellow. This is the most important thing you can do. Talk to your health care provider and dietitian about taking daily supplements. Depending on your health and the cause of your kidney stones, you may be advised: ?Not to take supplements with vitamin C. ?To take a calcium supplement. ?To take a daily probiotic supplement. ?To take other supplements such as magnesium, fish oil, or vitamin B6. Take all medicines and supplements as told by your health care provider. Limit alcohol intake to no more than 1 drink a day for non women and 2 drinks a day for men. One drink equals 12 oz of beer, 5 oz of wine, or 1 oz of hard liquor. Lose weight if told by your health care provider. Work with your dietitian to find strategies and an eating plan that works best for you. What foods are not recommended? Limit your intake of the following foods, or as told by your dietitian. Talk to your dietitian about specific foods you should avoid based on the type of kidney stones and your overall health. Grains Breads. Bagels. Rolls. Baked goods. Salted crackers. Cereal. Pasta. Vegetables Spinach. Rhubarb. Beets. Canned vegetables. Pickles. Olives. Meats and other protein foods Nuts. Nut butters. Large portions of meat, poultry, or fish. Salted or cured meats. Deli meats. Hotdogs. Sausages. Dairy Cheese. Beverages Regular soft drinks. Regular vegetable juice. Seasonings and other foods Seasoning blends with salt. Salad dressings. Canned soups. Soy sauce. Ketchup. Barbecue sauce. Canned pasta sauce. Casseroles. Pizza. Lasagna. Frozen meals. Potato chips. Guatemalan fries. Summary You can reduce your risk of kidney stones by making changes to your diet. The most important thing you can do is drink enough fluid. You should drink enough fluid to keep your urine clear or pale yellow. Ask your health care provider or dietitian how much protein from animal sources you should eat eachday, and also how much salt and calcium you should have each day. This information is not intended to replace advice given to you by your health care provider. Make sure you discuss any questions you have with your health care provider. Document Released: 05/22/2011 Document Revised: 05/17/2019 Document Reviewed: 01/05/2017 [employer] Patient Education 2020 [employer]. Follow Up Care 11/11/2021 13:26:18 With:EVENS AGUAYO, Noe Bailey, URL Address: [address] [place] [address]- When:1 year Comments:W/ [facility] 08-25-2022 History of Present illness Narrative* Nic Anderson MD - 10/02/2021 8:35 AM EDT Encounter Diagnosis ICD-10-CM 1. Anterior capsular opacification H26.40 YAG CAPSULOTOMY OS (LEFT EYE) 2. Pseudophakia Z96.1 3. 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 Retained lens material following cataract surgery of left eye H59.022 notes difficult with reading/glare feels vision may be worse than last visit +dry ARMD OU -- no fluid confirmed on OCT +ABMD OD>OS +cortical material/anterior capsular opacity temporal OS extending into visual axis offer YAG OS -- rba discussed, patient elects proceed increase pred acetate 1% to qid os for 2 weeks then back to scheduled taper continue pred acetate 1% every other day od Retinal detachment precautions reviewed. Call ANEESH if new s/s. if symptoms not improved, offer keratectomy OD, possibly followed by OS patient to report on symptoms I have confirmed and edited as necessary the relevant ophthalmic history, ROS, and the neuro exam findings as obtained by others. I have seen and examined this patient. I have discussed the case and the management of this patient's care with the Resident/Fellow, if applicable. I also have reviewed and agree with the assessment and plan as stated above and agree with all of its relevant components. Nic Anderson MD documented [facility] encounter[facility] Miscellaneous Notes* Telephone Encounter - Augie Jacobson - 09/29/2021 2:09 PM EDT Spoke with patient, she accepted appointment and has been scheduled. * Telephone Encounter - Nic Anderson MD - 09/29/2021 11:06 AM EDT You can offer her tomorrow at 1:45pm, thanks * Telephone Encounter - Augie Jacobson - 09/26/2021 1:30 PM EDT LV: 07/22/21 FV: 10/28/21 Patient reports decline in vision since her last visit. She did get new glasses in July, she is experiencing trouble with reading. Sometimes she has a difficult time recognizing people or objects until they are closer. Please advise. Nic Anderson MD filed at 07/22/2021 12:11 PM Status: Signed Encounter Diagnosis ICD-10-CM 1. 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 Pseudophakia Z96.1 3 mo s/p phaco/dmek OS - clear graft using pred acetate 1% qid decrease to bid x 1 month then every day thereafter OD 10 months s/p DMEK - clear graft - decrease to 3x week new mrx today follow-up 3 months next visit mrx iop dfe ou I have confirmed and edited as necessary the relevant ophthalmic history, ROS, and the neuro exam findings as obtained by others. I have seen and examined this patient. I have discussed the case and the management of this patient's care with the Resident/Fellow, if applicable. I also have reviewed and agree with the assessment and plan as stated above and agree with all of its relevant components. Nic Anderson MD documented in [facility] encounter[facility] Evaluation note* Encounter Date Diagnosis Assessment Notes Treatment Notes Treatment Clinical Notes Sep, Alternating constipation and diarrhea (ICD-10 - R19.8) [facility] Other 07-06-2022 Miscellaneous Notes* Telephone Encounter - Robert Crocker MD - 08/13/2021 4:08 PM EDT rx sent to [facility] Robert Crocker II, MD documented in this encounterThe [facility] History of Present illness Narrative* Robert Crocker MD - 08/13/2021 12:00 AM EDT [facility] [address] [place], [place] [address] CLINIC NOTE Department of Orthopaedics - Chantal Crocker II, M.D. NAME: FANTASMA LEWIS CLINIC NO.: [id number] DATE OF SERVICE: 08/13/2021 CHIEF COMPLAINT: Recheck of both knees. Right TKR with long stem tibia, 07/10/2009, 12 years. Left TKR, 06/25/2016 - 5 years. The patient is doing quite well. Had discussed the need for antibiotics with dental work, etc. and we have offered to assist her with this. Reviewed x-rays with the patient and her x-rays look excellent. See back in 1 year. Dictated By: Robert Crocker II, M.D. Date Dictated: 08/14/2021 Date Typed: [facility] 08/14/2021 JOB# [id number] documented in this encounterThe [facility] History of Present illness Narrative* Robert Sullivan DPM - 07/30/2021 9:12 AM EDT Images from the original note were not included. SERVICE DATE: July 30, 2021 PCP: DO Kiki Gannon Patient ID: Carolina is a 81 year old female. Patient presents today stating that her underground drill operator had examined her and recommended that she see a applications instructor with regard to fungus of her right great toenail and possibly her fifth toenail. Patient denies any pain, local skin changes, drainage, or signs of infection associated with these findings. Chief Complaint: Patient presents with: Nail Fungus: right 1 and 5 PAIN EVALUATION 07/30/2021 0908 Pain Level: 1 Pain Location: Toe right 2nd Description: Sore Duration Units: Years Frequency: Continuous Intervention/Comfort measure: Relaxation;Reposition HPI recommended for podiatry evaluation from underground drill operator with regard to discolored, thickened toenail Review of Systems ACTIVE PROBLEM LIST Facet Syndrome Postlaminectomy Syndrome, Lumbar Region Hypothyroidism Vitamin D Deficiency Fatigue Family History of Lupus Erythematosus Multiple Joint Pain Encounter for Long-Term (Current) Use of Medications Bursitis of Hip, Right Hip Pain, Bilateral 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, Multiple Sites Pain in Toe of Right Foot Elevated C-Reactive Protein (Crp) Status Post Bilateral Knee Replacements Djd (Degenerative Joint Disease), Ankle and Foot Foot Deformity, Bilateral Hammer Toes, Bilateral Primary Osteoarthritis of Left Knee Essential Hypertension Pseudogout Involving Multiple Joints Long-Term Use of Plaquenil Inflammatory Arthritis Primary Osteoarthritis of Both Knees Contusion, Knee and Lower Leg, Unspecified Laterality, Initial Encounter Joint Stiffness of Multiple Sites Osteopenia of Multiple Sites Gerd (Gastroesophageal Reflux Disease) History of Breast Cancer Lower Leg Edema Pre-Operative Examination Fuchs' Corneal Dystrophy of Left Eye Mild Intermittent Asthma Without Complication PAST MEDICAL HISTORY Diagnosis Date Breast cancer (HCC) 2018 Depression patient states she is not treated for depression, cymbalta is for nerve pain GERD (gastroesophageal reflux disease) History of Descemet membrane endothelial keratoplasty (DMEK) Hypothyroidism Lumbago 12/11/2008 Osteoarthrosis, unspecified whether generalized or localized, lower leg 08/04/2007 PMH - PAST MEDICAL HISTORY OF Sepsis prior to kidney stone removal Pseudophakia Retinal edema Urinary calculus, unspecified Renal stones PAST SURGICAL HISTORY Procedure Laterality Date APPENDECTOMY ARTHRP KNE CONDYLE&PLATU MEDIAL&LAT COMPARTMENTS Right BIOPSY BREAST OPEN INCISIONAL Bx of breast, incisional, left ENDOTHELIAL KERATOPLASTY(DMEK) Right 09/09/2020 ENDOTHELIAL KERATOPLASTY(DMEK) Left 04/28/2021 LAMINECTOMY W/O FFD 1/2 VERT SEG LUMBAR Laminectomy, lumbar PAST SURGICAL HISTORY OF Open removal of kidney stones PAST SURGICAL HISTORY OF Expl. Lap with tubal ligation PAST SURGICAL HISTORY OF right partial knee FAMILY HISTORY Problem Relation Age of Onset Diabetes Mother Coronary Artery Disease Mother Hypertension Mother Lipids Mother Heart Mother Arthritis Father s/p TKR Hypertension Father COPD Father Hypertension Sister Hypertension Brother Lipids Sister Lipids Brother 5 brothers Diabetes Brother Diabetes Paternal Grandmother Hypertension Paternal Grandmother Diabetes Paternal Grandfather Breast Cancer Maternal Grandmother Hypertension Maternal Grandmother COPD Maternal Grandfather Stroke Maternal Grandfather Social History Tobacco Use Smoking status: Former Smoker Quit date: 06/21/1974 Years since quittin.1 Smokeless tobacco: Never Used Tobacco comment: socially only Vaping Use Vaping Use: Never used Substance Use Topics Alcohol use: Yes Comment: socially Drug use: No ALLERGIES Allergen Reactions Plaquenil [Hydroxyc* Other: See Comments Eye changes on exam 06/2020 (unable to clarify if changes from macular degeneration) MEDICATIONS: Clindamycin Phosphate 1 % APPLY TO AFFECTED AREAS TWICE DAILY FOR FLARES DULoxetine (CYMBALTA) 60 mg capsule TAKE 1 CAPSULE DAILY alendronate (FOSAMAX) 70 mg tablet TAKE 1 TABLET ONCE A WEEK ON AN EMPTY STOMACH WITH FULL GLASS OFWATER. NO FOOD/DRINK OR LYING DOWN FOR 45 TO 60 MINUTES AFTER MEDICATION prednisoLONE acetate (PRED FORTE, ECONOPRED PLUS) 1 % ophthalmic suspension use one drop once dailyright eye and four times daily left eye meloxicam (MOBIC) 15 mg tablet TAKE 1 TABLET DAILY WITH FOOD FOR PAIN levothyroxine (SYNTHROID) 88 mcg tablet Take 88 mcg by mouth once daily. omeprazole (PRILOSEC) 40 mg capsule Take 40 mg by mouth once daily. verapamil SR (CALAN SR, ISOPTIN SR) 240 mg CR tablet Take 240 mg by mouth. anastrozole (ARIMIDEX) 1 mg tablet Take 1 mg by mouth once daily. albuterol HFA (PROVENTIL HFA, VENTOLIN HFA) 90 mcg/actuation inhaler Inhale 1 Puff as instructed every 4 hours as needed for Wheezing/Shortness of Breath. cyanocobalamin (VITAMIN B-12) 1,000 mcg tab Take 3,000 mcg by mouth once daily. acetaminophen (TYLENOL) 500 mg tablet Take 2 tablets by mouth three times daily. cholecalciferol (VITAMIN D3) 2,000 unit tablet Take 2 tablets by mouth once daily. HYDROCHLOROTHIAZIDE 50 MG TAB Take one(1) tablet daily Allergies, medications, past surgical history, family history and past medical history were reviewed per this encounter. Objective PHYSICAL EXAM Pain 0/10 Duration since noticed Drainage none present at exam, no history Treatment none attempted Vasc: DP 2/+4 PT nonpalpable CFT less than 3 seconds; bilateral Temp warm to warm tibia to toes; bilateral. Neuro: Intact epicritic sensation bilateral, no reproducible neuritic symptoms Musculoskeletal: Bilateral HAV Derm: skin well hydrated with good turgor, no ecchymosis or ulceration bilateral Nails bell-brown, thick, crumbly right hallux nail with separation from underlying nailbed distal 70%; site is asymptomatic. All other nails appear to be normal with regard to color and trophic appearance Assessment/Plan ASSESSMENT Diagnosis (B35.1) Onychomycosis of right great toe (primary encounter diagnosis) No orders found for this visit on 07/30/21. PLAN Discussed current conditions and relationship of components with patient. Discussed normal nail anatomy, pathogenesis of current condition, treatment options including topical, oral, laser, mechanical, associated benefit, potential risks, potential complications. I have debrided the nail to have a m ore normal symmetrical appearance, patient defers any active treatment at this time FOLLOW-UP: As needed SIGNATURE: Robert Sullivan DPM PATIENT NAME: Fantasma Lewis DATE: July 30, 2021 TIME: 9:26 AM Robert Sullivan DPM documented in this encounterThe [facility]06-14-[facility]22 History of Present illness Narrative* Nic Anderosn MD - 07/22/2021 12:09 PM EDT Encounter Diagnosis ICD-10-CM 1. 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 Pseudophakia Z96.1 3 mo s/p phaco/dmek OS - clear graft using pred acetate 1% qid decrease to bid x 1 month then every day thereafter OD 10 months s/p DMEK - clear graft - decrease to 3x week new mrx today follow-up 3 months next visit mrx iop dfe ou I have confirmed and edited as necessary the relevant ophthalmic history, ROS, and the neuro exam findings as obtained by others. I have seen and examined this patient. I have discussed the case and the management of this patient's care with the Resident/Fellow, if applicable. I also have reviewed and agree with the assessment and plan as stated above and agree with all of its relevant components. Nic Anderson MD documented in this encounterThe [facility]22 Miscellaneous Notes* Telephone Encounter - Maribell Butler RN - 07/02/2021 4:23 PM EDT Patient calling with physician referral: Patient referred to Podiatry Department. Patient was seen by her Wellness Specialist today and was advised to be seen by Podiatry. She was advised her right big toeand little toe appear to have fungal infection. Patient denies any new or worsening symptoms of which a provider is not aware:Yes. GO TO THE EMERGENCY ROOM OR CALL 911 IF: * You develop any new symptoms * Your condition worsens * You are concerned or anxious about your condition for any other reason. If you have any questions, you can call Nurse building energy consultant back. 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 I have seen and examined this patient. I have discussed the case and the management of this patient's care with the Resident/Fellow, if applicable. I also have reviewed and agree with the assessment and plan as stated above and agree with all of its relevant components. Nic Anderson MD documented in this encounterThe [facility] System04-25-2022 Miscellaneous Notes* Telephone Encounter - Magui Maravilla RN - 06/02/2021 9:43 AM EDT Call to pt. . Id'd by name and . States understanding of the below, denies any questions or concerns, agrees with plan of care and will follow. * Telephone Encounter - Chalo Menjivar MD - 06/02/2021 8:47 AM EDT Notify patient medication sent as requested Thank you. Patient's request for medication is as follows: Pending Prescriptions: Disp Refills DULoxetine (CYMBALTA) 60 mg capsule 90 capsule3 [Pharmacy Med Name: DULOXETINE HCL DR CAPS 60MG] Sig: TAKE 1 CAPSULE DAILY SHAWNA: Yes Prescription(s) as above. Please process accordingly. Chalo Menjivar MD * Telephone Encounter - Latesha Aguero MA - 06/02/2021 8:01 AM EDT 12/09/20- last ov 11/24/21- next ov Patient has been identified by name and date of : Yes Pending Prescriptions Disp Refills DULOXETINE 60 MG CAPSULE,DELAYED RELEASE 90 capsule 3 Sig: TAKE 1 CAPSULE DAILY SHAWNA: Yes RX INSTRUCTIONS: Patient aware RX will be sent to pharmacy. No need to notify patient. Latesha Aguero MA documented in this encounterThe [facility] System03-29-2022 History of Present illness Narrative* Nic Anderson MD - 05/06/2021 11:43 AM EDT Encounter Diagnosis ICD-10-CM 1. Status post corneal transplant Z94.7 2. History of Descemet membrane endothelial keratoplasty (DMEK) Z94.7 fluorescein-benoxinate 0.25-0.4 % 1 Drop (FLURESS) proparacaine 0.5 % 1 Drop (ALCAINE) OCT ANTERIOR SEGMENT OPTOVUE OS (LEFT EYE) Plan: remove suture Prednisolone 1% QID operative eye Ciprofloxacin 1% QID operative eye until gone Acular QID operative eye until gone Erythromycin patricia QHS operative eye until gone Call ANEESH for new S/S Next visit orders: (4-6 weeks) VA OU IOP OU MRX OU I have confirmed and edited as necessary the relevant ophthalmic history, ROS, and the neuro exam findings as obtained by others. I have seen and examined this patient. I have discussed the case and the management of this patient's care with the Resident/Fellow, if applicable. I also have reviewed and agree with the assessment and plan as stated above and agree with all of its relevant components. Nic Anderson MD documented in this encounterThe [facility] System03-22-2022 Miscellaneous Notes* Telephone Encounter - TracieStaceyFlora Kavon - 04/29/2021 1:36 PM EDT Patient called and hadn't received her Ciprofloxacin. Spoke with pharmacy and called it in patient will pick it up today and get her 4 drops in this evening. documented in this encounterThe [facility] System10-28-2021 Evaluation note* Encounter Date Diagnosis Assessment Notes Treatment Notes Treatment Clinical Notes Nov, Gastritis (ICD-10 - K29.70) CONTINUE OMEPRAZOLE 40 MG DAILY FOR NOW RTO 6 MONTHS Nov, Diverticulosis (ICD-10 - K57.90) [facility] Other 02-07-2017 History of Past illness Narrative* Problem Noted Date Resolved Date Carrier or suspected carrier of methicillin resistant Staphylococcus aureus 03/17/2016 06/02/2016 LETICIA positive 11/25/2011 06/02/2016 documented as of this encounter (statuses as of 05/06/2021) [facility] of Past illness Narrative* Problem Noted Date Resolved Date Carrier or suspected carrier of methicillin resistant Staphylococcus aureus 03/17/2016 06/02/2016 LETICIA positive 11/25/2011 06/02/2016 documented as of this encounter (statuses as of 05/19/2021) [facility] of Past illness Narrative* Problem Noted Date Resolved Date Carrier or suspected carrier of methicillin resistant Staphylococcus aureus 03/17/2016 06/02/2016 LETICIA positive 11/25/2011 06/02/2016 documented as of this encounter (statuses as of 06/02/2021) [facility] of Past illness Narrative* Problem Noted Date Resolved Date Carrier or suspected carrier of methicillin resistant Staphylococcus aureus 03/17/2016 06/02/2016 LETICIA positive 11/25/2011 06/02/2016 documented as of this encounter (statuses as of 06/04/2021) [facility] of Past illness Narrative* Problem Noted Date Resolved Date Carrier or suspected carrier of methicillin resistant Staphylococcus aureus 03/17/2016 06/02/2016 LETICIA positive 11/25/2011 06/02/2016 documented as of this encounter (statuses as of 07/02/2021) [facility] of Past illness Narrative* Problem Noted Date Resolved Date Carrier or suspected carrier of methicillin resistant Staphylococcus aureus 03/17/2016 06/02/2016 LETICIA positive 11/25/2011 06/02/2016 documented as of this encounter (statuses as of 07/22/2021) [facility] of [facility] illness Narrative* Problem Noted Date Resolved Date Carrier or suspected carrier of methicillin resistant Staphylococcus aureus 03/17/2016 06/02/2016 LETICIA positive 11/25/2011 06/02/2016 documented as of this encounter (statuses as of 07/30/2021) [facility] of Past illness Narrative* Problem Noted Date Resolved Date Carrier or suspected carrier of methicillin resistant Staphylococcus aureus 03/17/2016 06/02/2016 LETICIA positive 11/25/2011 06/02/2016 documented as of this encounter (statuses as of 08/13/2021) [facility] of [facility] Narrative* Problem Noted Date Resolved Date Carrier or suspected carrier of methicillin resistant Staphylococcus aureus 03/17/2016 06/02/2016 LETICIA positive 11/25/2011 06/02/2016 documented as of this encounter (statuses as of 08/20/2021) [facility] of [facility] Narrative* Problem Noted Date Resolved Date Carrier or suspected carrier of methicillin resistant Staphylococcus aureus 03/17/2016 06/02/2016 LETICIA positive 11/25/2011 06/02/2016 documented as of this encounter (statuses as of 09/29/2021) [facility] of [facility] illness Narrative* Problem Noted Date Resolved Date Carrier or suspected carrier of methicillin resistant Staphylococcus aureus 03/17/2016 06/02/2016 LETICIA positive 11/25/2011 06/02/2016 documented as of this encounter (statuses as of 10/02/2021) [facility] of [facility] Narrative* Problem Noted Date Resolved Date Carrier or suspected carrier of methicillin resistant Staphylococcus aureus 03/17/2016 06/02/2016 LETICIA positive 11/25/2011 06/02/2016 documented as of this encounter (statuses as of 01/27/2022) [facility] of [facility] Narrative* Problem Noted Date Resolved Date Carrier or suspected carrier of methicillin resistant Staphylococcus aureus 03/17/2016 06/02/2016 LETICIA positive 11/25/2011 06/02/2016 documented as of this encounter (statuses as of 03/03/2022) [facility] of [facility] Narrative* Problem Noted Date Resolved Date Carrier or suspected carrier of methicillin resistant Staphylococcus aureus 03/17/2016 06/02/2016 LETICIA positive 11/25/2011 06/02/2016 documented as of this encounter (statuses as of 04/14/2022) [facility] of [facility] Narrative* Problem Noted Date Resolved Date Carrier or suspected carrier of methicillin resistant Staphylococcus aureus 03/17/2016 06/02/2016 LETICIA positive 11/25/2011 06/02/2016 documented as of this encounter (statuses as of 08/05/2022) [facility] of [facility] Narrative* Problem Noted Date Diagnosed Date Resolved Date Carrier or suspected carrier of methicillin resistant Staphylococcus aureus 03/17/2016 06/03/19 17 LETICIA positive 11/25/2011 06/02/2016 documented as of this encounter (statuses as of 08/31/2022) [facility] of [facility] Narrative* Problem Noted Date Diagnosed Date Resolved Date Carrier or suspected carrier of methicillin resistant Staphylococcus aureus 03/17/2016 06/03/19 17 LETICIA positive 11/25/2011 06/02/2016 documented as of this encounter (statuses as of 09/14/2022) [facility] of [facility] Narrative* Problem Noted Date Diagnosed Date Resolved Date Carrier or suspected carrier of methicillin resistant Staphylococcus aureus 03/17/2016 06/03/19 17 LETICIA positive 11/25/2011 06/02/2016 documented as of this encounter (statuses as of 01/03/2023) [facility] of [facility] Narrative* Problem Noted Date Diagnosed Date Resolved Date Carrier or suspected carrier of methicillin resistant Staphylococcus aureus 03/17/2016 06/03/19 17 LETICIA positive 11/25/2011 06/02/2016 documented as of this encounter (statuses as of 04/29/2023) [facility] of [facility] Narrative* Problem Noted Date Diagnosed Date Resolved Date Carrier or suspected carrier of methicillin resistant Staphylococcus aureus 03/17/2016 06/03/19 17 LETICIA positive 11/25/2011 06/02/2016 documented as of this encounter (statuses as of 04/30/2023) [facility] of [facility] Narrative* Problem Noted Date Diagnosed Date Resolved Date Carrier or suspected carrier of methicillin resistant Staphylococcus aureus 03/17/2016 06/03/19 17 LETICIA positive 11/25/2011 06/02/2016 documented as of this encounter (statuses as of 05/10/2023) [facility] + Plan note Future Appointments Appointment Date:11/20/2022 11:00:00 AM Scheduled Provider:Noe LOZA MD Location:[facility] Appointment Type:URO Office Visit [facility] Evaluation note* Diagnosis Status post corneal transplant- Primary Cornea replaced by transplant History of Descemet membrane endothelial keratoplasty (DMEK) [facility] encounter [facility]* Diagnosis Secondary osteoarthritis of multiple sites Osteoarthrosis involving, or with mention of more than one site, but not specified as generalized, multiple sites Postlaminectomy syndrome, lumbar region documented in this encounter [facility]* Diagnosis History of Descemet membrane endothelial keratoplasty (DMEK)- Primary Pseudophakia Lens replaced by other means Retinal edema documented in this encounter [facility]* Diagnosis History of Descemet membrane endothelial keratoplasty (DMEK)- Primary Pseudophakia Lens replaced by other means [facility]* Diagnosis Onychomycosis of right great toe- Primary documented [facility] this encounter [facility]* Diagnosis Status post bilateral knee replacements- Primary Knee joint replacement by other means [facility]* Diagnosis Status post bilateral knee replacements- Primary Knee joint replacement by other means [facility]* Diagnosis Anterior capsular opacification- Primary Pseudophakia Lens replaced by other means History of Descemet membrane endothelial keratoplasty (DMEK) Intermediate stage nonexudative age-related macular degeneration of both eyes Retained lens material following cataract surgery of left eye Cataract fragments in eye following surgery documented [facility] this encounter [facility]* Diagnosis 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 Pseudophakia Lens replaced by other means PCO (posterior capsular opacification), bilateral After-cataract, unspecified History of Descemet membrane endothelial keratoplasty (DMEK) documented [facility] this encounter [facility]* Diagnosis 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 [facility]* Diagnosis 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 Retinal edema 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, left eye, intermediate dry stage [facility]* Diagnosis 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r degeneration of right eye with active choroidal neovascularization (HCC)- Primary Nonexudative age-related macular degeneration, left eye, intermediate dry stage Pseudophakia Lens replaced by other means 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 documented in this encounter [facility] note* Diagnosis 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)- Primary Pseudophakia Lens replaced by other means 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 Dry eye syndrome of both eyes documented [facility] this encounter [facility]* Diagnosis Secondary osteoarthritis of multiple sites Osteoarthrosis involving, or with mention of more than one site, but not specified as generalized, multiple sites Postlaminectomy syndrome, lumbar region documented [facility] this [facility]* Diagnosis 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 Work Phone: Evaluation note* Diagnosis Multiple joint pain Pain in joint, multiple sites Secondary osteoarthritis of multiple sites Osteoarthrosis involving, or with mention of more than one site, but not specified as generalized, multiple sites documented in this encounter [facility] general Narrative - Reported* Type Description Date Medical History kidney stones Medical History osteoarthritis Medical History migraine headache Medical History hypertension Medical History breast cancer Surgical History laminectomy Surgical History back surgery Surgical History knee surgery right Surgical History kidney stone Surgical History appendectomy Hospitalization History see surgical hx [facility] Other History general Narrative - Reported* Type Description Date Medical History kidney stones Medical History osteoarthritis Medical History migraine headache Medical History hypertension Medical History breast cancer Surgical History laminectomy Surgical History back surgery Surgical History knee surgery right Surgical History kidney stone Surgical History appendectomy 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 Hospitalization History see surgical hx [facility] Other Hospital course Narrative No data available for this section [facility] Progress note No data available for this section [facility] Reason for referral (narrative)* Diagnostic Procedure Only (Routine) - Closed Specialty Diagnoses / Procedures Referred By Contac t Referred To Contact XR IMAGING Diagnoses Status post bilateral knee replacements Procedures XR KNEE POST OP 3V AP/LAT/MERCHANT BILATERAL RADIOLOGIC EXAMINATION KNEE 3 VIEWS Robert Crocker MD [address] [place] [address] Xr Imaging Referral ID Status Reason Start Date Expiration Date V isits Requested Visits Authorized [id number] Closed Auto-Generate d Referral 08/12/2021 09/11/[address] [facility] for referral (narrative)* Consultation (Routine) - Authorized Specialty Diagnoses / Procedures Referred By Contac t Referred To Contact Cardiology Diagnoses SVT (supraventricular tachycardia) Procedures Follow Up In Cardiology Afshin Rocha MD [address] [place] [address], [address] [address] Afshin Rocha MD [address] [place] [address] 2, [address] [address] Referral ID Status Reason Start Date Expiration Date V isits Requested Visits Authorized [id number] Authorized 12/08/2022 12/08/2023 1 1 * Cardiovascular (Routine) - Pending Review Specialty Diagnoses / Procedures Referred By Contac t Referred To Contact Diagnoses SVT (supraventricular tachycardia) Procedures ECG 12 Lead Afshin Rocha MD [address] [place] [address] 2, [address] [address] Referral ID Status Reason Start Date Expiration Date V isits Requested Visits Authorized [id number] Pending Review 12/08/2022 12/08/[address] 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 Advance Directive(s) Advance Directive(s) 04/24/2021 10:29 AM Advance Directive(s) 08/27/2020 10:42 AM Advance Directive(s) 06/25/2016 7:07 AM Chief Complaint and Reason for Visit Chief Complaint Breast Cancer L02.91 Reason for Visit Encounter for monito ring aromatase inhibitor therapy Screening for osteoporosis Chief Complaint Breast Cancer Reason for Visit 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 Encounter for monitoring aromatase inhibitor therapy Screening for osteoporosis Microcalcification of right breast on mammogram Assessments Diagnosis Onset Date Resolution Status Encounter for monitoring aromatase inhibitor therapy chronic Screening for osteoporosis c hronic Family History No Family History Records Found Relationship Condition Age at Onset Recorded Date/T [place] father Arthritis Unknown Hypertension Unknown Not Specified Diabetes mellitus Unknown History of coronary artery bypass surgery Unknown brother Diabetes mellitus Unknown sister Osteoarthritis Unknown daughter Hypertension Unknown Asthma Unknown natural son Hypertension Unknown grandparent Malignant neoplasm of breast Unknown Relationship Condition Age at Onset Recorded Date/T [place] father Arthritis Unknown Hypertension Unknown mother Diabetes mellitus Unknown History of coronary artery bypass surgery Unknown brother Diabetes mellitus Unknown sister Osteoarthritis Unknown daughter Hypertension Unknown Asthma Unknown son Hypertension Unknown grandparent Malignant neoplasm of breast Unknown father Dementia Unknown Unknown mother Unknown Summary Purpose Additional Source Comments Source Comments (unrecognize d section and content) In the event this informatio n is protected by the Federal Confidentiality of Alcohol and Drug Abuse Patient Records regulations: The Federal rules restrict any use of the information to criminally investigate or prosecute any alcohol or drug abuse patient.[facility]In the event this information is protected by the Federal Confidentiality of Alcohol and Drug Abuse Patient Records regulations: The Federal rules restrict any use of the information to criminally investigate or prosecute any alcohol or drug abuse patient.[facility] SystemIn the event this information is protected by the Federal Confidentiality of Alcohol and Drug Abuse Patient Records regulations: The Federal rules restrict any use of the information to criminally investigate or prosecute any alcohol or drug abuse patient.[facility] SystemIn the event this information is protected by the Federal Confidentiality of Alcohol and Drug Abuse Patient Records regulations: The Federal rules restrict any use of the information to criminally investigate or prosecute any alcohol or drug abuse patient.[facility] SystemIn the event this information is protected by the Federal Confidentiality of Alcohol and Drug Abuse Patient Records regulations: The Federal rules restrict any use of the information to criminally investigate or prosecute any alcohol or drug abuse patient.[facility] SystemIn the event this information is protected by the Federal Confidentiality of Alcohol and Drug Abuse Patient Records regulations: The Federal rules restrict any use of the information to criminally investigate or prosecute any alcohol or drug abuse patient.[facility] SystemIn the event this information is protected by the Federal Confidentiality of Alcohol and Drug Abuse Patient Records regulations: The Federal rules restrict any use of the information to criminally investigate or prosecute any alcohol or drug abuse patient.[facility] SystemIn the event this information is protected by the Federal Confidentiality of Alcohol and Drug Abuse Patient Records regulations: The Federal rules restrict any use of the information to criminally investigate or prosecute any alcohol or drug abuse patient.[facility] SystemIn the event this information is protected by the Federal Confidentiality of Alcohol and Drug Abuse Patient Records regulations: The Federal rules restrict any use of the information to criminally investigate or prosecute any alcohol or drug abuse patient.[facility] SystemIn the event this information is protected by the Federal Confidentiality of Alcohol and Drug Abuse Patient Records regulations: The Federal rules restrict any use of the information to criminally investigate or prosecute any alcohol or drug abuse patient.[facility] SystemIn the event this information is protected by the Federal Confidentiality of Alcohol and Drug Abuse Patient Records regulations: The Federal rules restrict any use of the information to criminally investigate or prosecute any alcohol or drug abuse patient.[facility] SystemIn the event this information is protected by the Federal Confidentiality of Alcohol and Drug Abuse Patient Records regulations: The Federal rules restrict any use of the information to criminally investigate or prosecute any alcohol or drug abuse patient.[facility] SystemIn the event this information is protected by the Federal Confidentiality of Alcohol and Drug Abuse Patient Records regulations: The Federal rules restrict any use of the information to criminally investigate or prosecute any alcohol or drug abuse patient.[facility] SystemIn the event this information is protected by the Federal Confidentiality of Alcohol and Drug Abuse Patient Records regulations: The Federal rules restrict any use of the information to criminally investigate or prosecute any alcohol or drug abuse patient.[facility] SystemIn the event this information is protected by the Federal Confidentiality of Alcohol and Drug Abuse Patient Records regulations: The Federal rules restrict any use of the information to criminally investigate or prosecute any alcohol or drug abuse patient.[facility] SystemIn the event this information is protected by the Federal Confidentiality of Alcohol and Drug Abuse Patient Records regulations: The Federal rules restrict any use of the information to criminally investigate or prosecute any alcohol or drug abuse patient.[facility] SystemIn the event this information is protected by the Federal Confidentiality of Alcohol and Drug Abuse Patient Records regulations: The Federal rules restrict any use of the information to criminally investigate or prosecute any alcohol or drug abuse patient.[facility] SystemIn the event this information is protected by the Federal Confidentiality of Alcohol and Drug Abuse Patient Records regulations: The Federal rules restrict any use of the information to criminally investigate or prosecute any alcohol or drug abuse patient.[facility] SystemIn the event this information is protected by the Federal Confidentiality of Alcohol and Drug Abuse Patient Records regulations: The Federal rules restrict any use of the information to criminally investigate or prosecute any alcohol or drug abuse patient.[facility] SystemIn the event this information is protected by the Federal Confidentiality of Alcohol and Drug Abuse Patient Records regulations: The Federal rules restrict any use of the information to criminally investigate or prosecute any alcohol or drug abuse patient.[facility] SystemIn the event this information is protected by the Federal Confidentiality of Alcohol and Drug Abuse Patient Records regulations: The Federal rules restrict any use of the information to criminally investigate or prosecute any alcohol or drug abuse patient.[facility] SystemIn the event this information is protected by the Federal Confidentiality of Alcohol and Drug Abuse Patient Records regulations: The Federal rules restrict any use of the information to criminally investigate or prosecute any alcohol or drug abuse patient.[facility] SystemIn the event this information is protected by the Federal Confidentiality of Alcohol and Drug Abuse Patient Records regulations: The Federal rules restrict any use of the information to criminally investigate or prosecute any alcohol or drug abuse patient.[facility] SystemIn the event this information is protected by the Federal Confidentiality of Alcohol and Drug Abuse Patient Records regulations: The Federal rules restrict any use of the information to criminally investigate or prosecute any alcohol or drug abuse patient.[facility] SystemIn the event this information is protected by the Federal Confidentiality of Alcohol and Drug Abuse Patient Records regulations: The Federal rules restrict any use of the information to criminally investigate or prosecute any alcohol or drug abuse patient.[facility] SystemIn the event this information is protected by the Federal Confidentiality of Alcohol and Drug Abuse Patient Records regulations: The Federal rules restrict any use of the information to criminally investigate or prosecute any alcohol or drug abuse patient.[facility] SystemIn the event this information is protected by the Federal Confidentiality of Alcohol and Drug Abuse Patient Records regulations: The Federal rules restrict any use of the information to criminally investigate or prosecute any alcohol or drug abuse patient.[facility] SystemIn the event this information is protected by the Federal Confidentiality of Alcohol and Drug Abuse Patient Records regulations: The Federal rules restrict any use of the information to criminally investigate or prosecute any alcohol or drug abuse patient.[facility] SystemIn the event this information is protected by the Federal Confidentiality of Alcohol and Drug Abuse Patient Records regulations: The Federal rules restrict any use of the information to criminally investigate or prosecute any alcohol or drug abuse patient.[facility] SystemIn the event this information is protected by the Federal Confidentiality of Alcohol and Drug Abuse Patient Records regulations: The Federal rules restrict any use of the information to criminally investigate or prosecute any alcohol or drug abuse patient.[facility] SystemIn the event this information is protected by the Federal Confidentiality of Alcohol and Drug Abuse Patient Records regulations: The Federal rules restrict any use of the information to criminally investigate or prosecute any alcohol or drug abuse patient.[facility] Reason for Visit (unrecogniz ed section and content) Reason Comments Post-op (Ophthalmology) Left Eye Reason Comments Medication Problem Reason Comments Refill Request Reason Comments Post-op (Ophthalmology) OS S/p DMEK OS: 04/28/21 Reason Comments Appointment Reason Comments History of Descemet membrane endothelial keratoplasty (DMEK Reason Comments Nail Fungus right 1 and 5 Reason Comments Patient Update Reason Comments DMEK Blurred Vision Both Eyes Reason Comments Cornea Transplant Follow Up Reason Comments Post-op (Ophthalmology) Right Eye Reason Comments Post-op (Ophthalmology) Right Eye Reason Comments Results Reason Comments Patient Question Reason Comments Results BMD Specialty Diagnoses / Procedures Referred By Contac t Referred To Contact Diagnoses SVT (supraventricular tachycardia) Procedures ECG 12 Lead Afshin Rocha MD [address] [facility] [address] [place] [address] Referral ID Status Reason Start Date Expiration Date V isits Requested Visits Authorized [id number] Pending Review 12/08/2022 12/08/2023 1 1 Reason Comments Macular Degeneration Follow Up Specialty Diagnoses / Procedures Referred By Contac t Referred To Contact Ophthalmology / OPHTHALMOLOGY Diagnoses 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r degeneration, right eye, with active choroidal neovascularization c*4 W, nvAMD, DFE/OCT, PRN AVASTIN Procedures MA BEVACIZUMAB INJECTION AVASTIN 1.25 mg every 4 weeks Brando Shields MD [address] [place] [address] Brando Shields MD [address] [place] [address] Referral ID Status Reason Start Date Expiration Date V isits Requested Visits Authorized [id number] Authorized 06/03/2023 06/02/2024 12 12 Reason Comments Allied Health Visit Prolia injection Specialty Diagnoses / Procedures Referred By Contac t Referred To Contact Rheumatology / RHEUMATOLOGY Diagnoses Age-related osteoporosis without current pathological fracture Procedures DENOSUMAB INJECTION SAHARA INJECT PROLIA Chalo Menjivar MD [address] [place] [address] Nurse Lucrecia Gayle [facility] [address] [place] [address] Referral ID Status Reason Start Date Expiration Date V isits Requested Visits Authorized [id number] Authorized 09/03/2023 07/27/2024 2 2 Care Teams (unrecognized sec tion and content) Prisoner Classification Interviewer Relationship Specialty Start Date End Date Roney Leroy, DO [address] [facility] [address] [place] [address] PCP - General 05/19/00 Prisoner Classification Interviewer Relationship Specialty Start Date End Date Roney Leroy, DO [address] [place] [address] PCP - General 05/19/00 Prisoner Classification Interviewer Relationship Specialty Start Date End Date Roney Leroy, DO [address] [place] [address] PCP - General 05/19/00 Prisoner Classification Interviewer Relationship Specialty Start Date End Date Roney Leroy, DO [address] [place] [address] PCP - General 05/19/00 Prisoner Classification Interviewer Relationship Specialty Start Date End Date Roney Leroy, DO [address] [place] [address] PCP - General 05/19/00 Prisoner Classification Interviewer Relationship Specialty Start Date End Date Roney Leroy, DO [address] [place] [address] PCP - General 05/19/00 Prisoner Classification Interviewer Relationship Specialty Start Date End Date Roney Leroy, DO [address] [place] [address] PCP - General 05/19/00 Prisoner Classification Interviewer Relationship Specialty Start Date End Date Roney Leroy, DO [address] [place] [address] PCP - General 05/19/00 Prisoner Classification Interviewer Relationship Specialty Start Date End Date Roney Leroy, DO [address] [place] [address] PCP - General 05/19/00 Prisoner Classification Interviewer Relationship Specialty Start Date End Date Roney Leroy, DO [address] [place] [address] PCP - General 05/19/00 Prisoner Classification Interviewer Relationship Specialty Start Date End Date Roney Leroy, DO [address] [place] [address] PCP - General 05/19/00 Prisoner Classification Interviewer Relationship Specialty Start Date End Date Roney Leroy, DO [address] [place] [address] PCP - General 05/19/00 Prisoner Classification Interviewer Relationship Specialty Start Date End Date Roney Leroy, DO [address] [place] [address] PCP - General 05/19/00 Prisoner Classification Interviewer Relationship Specialty Start Date End Date Roney Leroy, DO [address] [place] [address] PCP - General 05/19/00 Prisoner Classification Interviewer Relationship Specialty Start Date End Date Roney Leroy, DO [address] [place] [address] PCP - General Family Medicine 12/08/22 Prisoner Classification Interviewer Relationship Specialty Start Date End Date Roney Leroy, DO [address] [place] [address] PCP - General 05/19/00 Prisoner Classification Interviewer Relationship Specialty Start Date End Date Roney Leroy, DO [address] [place] [address] PCP - General Family Medicine 08/04/22 Marifer Castellanos MD [address] [place] [address] Oncology 01/29/23 Gunner Hidalgo, DO [address] [place] [address] Referring Physician General Surgery 01/29/23 Chalo Menjivar MD [address] [place] [address] Referring Physician Rheumatology 01/29/23 Prisoner Classification Interviewer Relationship Specialty Start Date End Date Roney Leroy, [address] [place] [address] PCP - General 05/19/00 Prisoner Classification Interviewer Relationship Specialty Start Date End Date Roney Leroy DO [address] [place] [address] PCP - General 05/19/00 Prisoner Classification Interviewer Relationship Specialty Start Date End Date Roney Leroy, [address] [place] [address] PCP - General 05/19/00 Prisoner Classification Interviewer Relationship Specialty Start Date End Date Roney Leroy, [address] [place] [address] PCP - General 05/19/00 Prisoner Classification Interviewer Relationship Specialty Start Date End Date Roney Leroy DO [address] [place] [address] PCP - General 05/19/00 Prisoner Classification Interviewer Relationship Specialty Start Date End Date Roney Leroy DO [address] [place] [address] PCP - General 05/19/00 Prisoner Classification Interviewer Relationship Specialty Start Date End Date Roney Leroy, [address] [place] [address] PCP - General 05/19/00 Prisoner Classification Interviewer Relationship Specialty Start Date End Date Roney Leroy DO [address] [place] [address] PCP - General 05/19/00 Prisoner Classification Interviewer Relationship Specialty Start Date End Date Roney Leroy DO [address] [place] [address] PCP - General 05/19/00 Team Status: Active Member Role Status Dates Roney Leroy DO Primary Care Provider Active Team Status: Active Member Role Status Dates Roney Leroy DO Primary Care Provider Active St art: September 08, 2023 Gunner Hidalgo DO Referring Provider Active Start: September 08, 2023 Pooja Kirby MD Active Start: Jacqueline figueroa 2023 Elsa Siddiqui APRN Attending Provider Acti ve Start: September 08, 2023 Team Status: Inactive Member Role Status Dates Roney Leroy DO Primary Care Provider Active St art: September 08, 2023 End: September 08, 2023 Elsa Siddiqui APRN Attending Provider Acti ve Start: September 08, 2023 End: September 08, 2023 INFORMATION SOURCE (unrecogn ized section and content) DATE CREATED AUTHOR 12/05/2021 [facility] DATE CREATED AUTHOR AUTHOR'S ORGANIZ ATION 11/17/2022 [facility] DATE CREATED AUTHOR AUTHOR'S ORGANIZ ATION 12/09/2022 [facility] DATE CREATED AUTHOR AUTHOR'S ORGANIZ ATION 09/16/2023 [facility] DATE CREATED AUTHOR AUTHOR'S ORGANIZ ATION 09/18/2023 [facility] DATE CREATED AUTHOR AUTHOR'S ORGANIZ ATION 10/30/2023 [facility] EPIC Goals (unrecognized section and content) Goals may be documented in a n alternate section FOR RECORDS PERTAINING TO PATIENTS WHO ARE OR HAVE BEEN ENROLLED IN A CHEMICAL DEPENDENCY/SUBSTANCEABUSE PROGRAM, SOME INFORMATION MAY BE OMITTED. This clinical summary was aggregated from multiple sources. Caution should be exercised in using it in the provision of clinical care. This summary normalizes information from multiple sources, and as a consequence, information in this document may materially change the coding, format and clinical context of patient data. In addition, data may be omitted in some cases. CLINICAL DECISIONS SHOULD BE BASED ON THE PRIMARY CLINICAL RECORDS. [facility]. provides no warranty or guarantee of the accuracy or completeness of information in this document.
[2023-11-04 13:20] LABS: Bilirubin Urine NEGATIVE (NEGATIVE); Blood Urine NEGATIVE (NEGATIVE); Clarity Urine CLEAR (CLEAR); Color Urine LT. YELLOW (YELLOW); Glucose Urine UA NEGATIVE (NEGATIVE); Ketones Urine NEGATIVE (NEGATIVE); Leukocyte Esterase Urine SMALL (NEGATIVE); Nitrite Urine NEGATIVE (NEGATIVE); Protein Urine NEGATIVE (NEG/TRACE); Urobilinogen Urine 0.2 EU/dL (0.2-1.0)
[2023-11-04 13:27] LABS: Bacteria Urine TRACE #/HPF (NONE SEEN); RBC Urine 0-2 #/HPF (0-2)
[2023-11-04 13:28] LABS: Cast Seen? NONE SEEN #/LPF (NONE SEEN); Crystals Seen? None Seen #/HPF (None Seen); Mucus Urine NONE SEEN (NONE SEEN); Squamous Epithelial Cell Urine MODERATE #/LPF (NONE/RARE)
== END 2023-11-04 12:05 | disposition home or self-care (01) ==
LOC: LAB 12:04
PROVIDERS: PCP Family Medicine; Visit Provider Family Medicine
DX: N30.00 Acute cystitis without hematuria (principal)
CPT/HCPCS: 81001; 87086

== ENCOUNTER 2024-10-07 11:41 | Observation (INO) | payer MEDICARE, SELFPAY ==
--- OUTSIDE RECORDS SUMMARY | 2024-10-05 10:15 | XMS_ITS | Encounter Summary ---
Author Organization [facility] Address [address] [place] [address] Care Team Providers Care Nursing Techn Name Role Phone Roney Leroy Jacqueline SIFUENTES Primary Care Provider [phone] Source Comments In the event this information is protected by the Federal Confidentiality of Alcohol and Drug AbusePatient Records regulations: The Federal rules restrict any use of the information to criminally investigate or prosecute any alcohol or drug abuse patient.[facility] Reason for Visit * Reason Comments Exudative Macular Degeneration Follow Up * Injectable (Routine) - Authorized Specialty Diagnoses / Procedures Referred By Contact Referred To Contact Ophthalmology / OPHTHALMOLOGY Diagnoses 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r degeneration, bilateral, with active choroidal neovascularization (HCC) Return in about 13 weeks (around 07/06/2024). Procedures MD BEVACIZUMAB INJECTION Avastin 1.25 mg both eyes every 4 wks for one year Cristobal Shields MD [address] [place] [address] Phone: tel:[phone] fax:[phone] Cristobal Shields MD [address] [place] [address] Phone: tel: fax:[phone] Referral ID Status Reason Start Date Expiration Date V isits Requested Visits Authorized [id number] Authorized 06/29/2024 06/29/2025 12 12 Encounter Details Date Type Department Care Team (Latest Contact Info) Description 10/05/2024 10:15 AM EDT Office Visit OP[facility] Ophthalmology [address] [place] [address] Cristobal Shields MD [address] [place] [address] Diagnostics, [facility] [address] [address] 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) (Primary Dx); Dry eye syndrome of both eyes; Pseudophakia of both eyes; History of YAG laser capsulotomy of lens, right; Posterior vitreous detachment of both eyes Social History Tobacco Use Types Packs/Day Years Used Date Smoking Tobacco: Former Cigarettes Q uit: 06/21/1974 Smokeless Tobacco: Never Comments:socially only Alcohol Use Standard Drinks/Week Comments Yes 0 (1 standard drink = 0.6 oz pur e alcohol) socially PHQ-2 Answer Date Recorded PHQ-2 score 2 11/28/2018 Area Deprivation Index Answer Date Russell rded National Score (1-100), lower number is lower ri sk 87 08/03/2022 State Score (1-10), lower number is lower risk 8 08/03/2022 Data from: https://www.neighborhoodatlas.medicine.[facility].edu/. Last address used for calculation [address] [place] [address] 08/03/2022 Comments No Sex and Gender Information Value Date Recorded Sex Assigned at Not on file Legal Sex Female 9:11 AM EST Gender Identity Not on file Sexual Orientation Not on file documented as of this encounter Functional Status * Are you deaf or do you have serious difficulty hearing? Answer Date of Assessment Author No 06/26/2016 5:00 PM EDT Karen Justin RN * Are you blind or do you have serious difficulty seeing, even when wearing glasses? Answer Date of Assessment Author No 06/26/2016 5:00 PM EDT Karen Justin RN * Do you have serious difficulty walking or climbing stairs? Answer Date of Assessment Author No 06/26/2016 5:00 PM EDT Karen Justin RN * Do you have difficulty dressing or bathing? Answer Date of Assessment Author No 06/26/2016 5:00 PM EDT Karen Justin RN * Because of a physical, mental, or emotional condition, do you have difficulty doing errands alone such as visiting a doctor's office or shopping? Answer Date of Assessment Author No 06/26/2016 5:00 PM EDT Karen Justin RN documented as of this encounter Mental Status * Because of a physical, mental, or emotional condition, do you have serious difficulty concentrating, remembering, or making decisions? Answer Entry Date Author No 06/26/2016 5:00 PM EDT Karen Justin RN documented in this encounter Patient Instructions * Patient Instructions* Cristobal Shields MD - 10/05/2024 11:41 AM EDT Post Injection Patient Information You [...] than dabbing lightly with a tissue An vntx-ehh-hztqpac pain reliever (i.e. Tylenol) can be used [...] should begin to improve the following day. ???Eyelash in the eye?? or neli/gritty sensation Tearing Mild floaters or bubbles in [...] If it is after hours please call [phone] which will give instructions on how to reach the eye doctor sales applications engineer documented in this encounter Progress Notes * Cristobal Shields MD - 10/05/2024 11:18 AM EDT Referred by Dr. Santos Age related macular degeneration - Smoking history: quit a long time ago; Family history: yes - Amsler grid and AREDS2 use reviewed. 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 - VA at start of therapy 20/40 - s/p Avastin, 14 weeks - OCT with resolved fluid / stable atrophy/RPE changes - VA stable - Atrophy worsening Plan = - Avastin OD LEFT EYE - Neovascular with GA - atrophy sup to fovea - VA start of tx 20/30 - s/p Avastin, 14 weeks - OCT with resolved trace sliver of subretinal fluid inf, not a definitive CNVM - VA stable - Atrophy worsening Plan = - Avastin OS F/U - 12 weeks dilate / OCT OU / Optos / FAF OU and assess GA Discuss Syfovre in future Posterior vitreous detachment, BOTH eyes - No peripheral pathology seen that requires treatment - Retinal detachment precautions reviewed with patient Intermittent Diplopia - EOM normal - Negative neurological symptoms - monitor and go to ER if patient exhibits neurological symptoms 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 Santos Pseudophakia, both eyes - s/p YAG OD 08/2024 - Monitor Dry eye syndrome, both eyes - AT QID PRN - warm compresses and lid scrubs I have confirmed and edited as necessary the relevant ophthalmic history, ROS, reviewed the HPI andthe neuro exam findings as obtained by others. I have seen and examined this patient. I have discussed the case and the management of this patient's care with the Resident, if applicable. I also have reviewed and agree with the assessment and plan as stated above and agree with all ofits relevant components. documented in this encounter Plan of Treatment Upcoming Encounters Date Type Department Care Team (Latest Contact Info) Description 10/23/2024 12:20 PM EDT Office Visit Rheumatology [address] [place] [address] Baylee Leon MD [address] [place] [address] for osteoporosis/osteoar thritis/pseudogout fu OV 6-12months./Last Prolia 09/04/24 12/28/2024 1:30 PM EST Office Visit [facility] Ophthalmology [address] [place] [address] Cristobal Shields MD [address] [place] [address] Diagnostics, [facility] [address] [address] *12 W, DFE/OCT/OPTOS/FAF, AVASTIN OU 04/19/2025 9:15 AM EDT Office Visit OPHT Ophthalmology [address] [address] Nic Santos MD [address] [place] [address] Diagnostics, [facility] [address] [place] [id number] Corneal Transplant yearly Scheduled Orders Name Type Priority Associated Diagnoses Orde r Schedule OCT MACULA CIRRUS OU (BOTH EYES) OPHT Imaging Routine 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) Expected: 10/20/2025, Expires: 03/29/2026 documented as of this encounter Procedures Procedure Name Priority Date/Time Associated Diagnosis Comments AVASTIN (BEVACIZUMAB) 1.25MG INTRAVITREAL INJECTION OS (LEFT EYE) Routine 10/05/2024 12:53 PM EDT 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) AVASTIN (BEVACIZUMAB) 1.25MG INTRAVITREAL INJECTION OD (RIGHT EYE) Routine 10/05/2024 12:53 PM EDT 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) OCT MACULA CIRRUS OU (BOTH EYES) Routine 10/05/2024 11:32 AM EDT 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 Personnel directly involved with the procedure wore the appropriate PEE. Special Equipment: N/A. Patient/surrogate stated/verified patient name, date of , relevant allergies, intended procedure. Provider Confirms: Relevant labs, photos, and/or imaging studies have been reviewed. Intended patient and procedure match the source document(s) (e.g. consent, associated studies [imaging, pathology]). Consent obtained and matches the intended procedure. Correct side/site marked and visible. Medications required for procedure verified. Fire risk assessed and interventions discussed. Correct implant(s) confirmed including size and side, expiration date(s) reviewed. Sign Out All specimens are correctly labeled and sent. All instruments, equipment, possible retained foreign bodies accounted for. Post-procedure POC communicated to patient or surrogate. Post-procedure POC communicated to patient's multidisciplinary team. Anesthesia 0.5 mL subconjunctival injection of 2% Lidocaine. Prep 5% Betadine. Injection Administration Medication: 1.25 mg bevacizumab (Jase's) 2.25 mg/0.09 mL Route: INTRAVITREAL, Site: Left Balance Wasted Residual medication less than 1 unit was discarded. Anterior Chamber Paracentesis No. Post Injection Evaluation Patient has at least hand motion vision. Post Procedure Medications None. Home Going Prescription None. us Cristobal Shields MD OPHTHALMOLOGY Final Result * AVASTIN (BEVACIZUMAB) 1.25MG INTRAVITREAL INJECTION OD (RIGHT EYE) (10/05/2024 12:53 PM EDT) Narrative Cristobal Shields MD - 10/05/2024 12:53 PM EDT Date of Procedure 10/05/2024 [place] Protocol Safety Checklist A moment of CARE was completed Sign In Sign in communication not applicable due to emergent procedure. Personnel directly involved with the procedure wore the appropriate PEE. Special Equipment: yes. Patient/surrogate stated/verified patient name, date of , relevant allergies, intended procedure. Provider Confirms: Relevant labs, photos, and/or imaging studies have been reviewed. Intended patient and procedure match the source document(s) (e.g. consent, associated studies [imaging, pathology]). Consent obtained and matches the intended procedure. Correct side/site marked and visible. Medications required for procedure verified. Fire risk assessed and interventions discussed. Correct implant(s) confirmed including size and side. Sign Out All specimens are correctly labeled and sent. All instruments, equipment, possible retained foreign bodies accounted for. Post-procedure POC communicated to patient or surrogate. Post-procedure POC communicated to patient's multidisciplinary team. Anesthesia 0.5 mL subconjunctival injection of 2% Lidocaine. Prep 5% Betadine. Injection Administration Medication: 1.25 mg bevacizumab (Jase's) 2.25 mg/0.09 mL Route: INTRAVITREAL, Site: Right Balance Wasted Residual medication less than 1 unit was discarded. Anterior Chamber Paracentesis No. Post Injection Evaluation Patient has at least hand motion vision. Post Procedure Medications None. Home Going Prescription None. us Cristobal Shields MD OPHTHALMOLOGY Final Result * OCT MACULA CIRRUS OU (BOTH EYES) (10/05/2024 11:32 AM EDT) Anatomical Region Laterality Modality Other Narrative 10/05/2024 11:32 AM EDT Date of Procedure 10/05/2024. OCT Macula Interpretation Right Eye Abnormal foveal contour. Findings include Drusen, RPE Irregularity, Atrophy; Negative for Intraretinal fluid, Subretinal fluid. Left Eye Abnormal foveal contour. Findings include Drusen, RPE Irregularity, Atrophy; Negative for Intraretinal fluid, Subretinal fluid. Interval Change Right Eye Stable. Left Eye Stable. Result [facility] us Cristobal Shields MD OPHTHALMOLOGY Final Result * FUNDUS AUTOFLUORESCENCE PHOTO (FAF) OU (BOTH EYES) (10/05/2024 11:32 AM EDT) Anatomical Region Laterality Modality Other Narrative 10/05/2024 11:32 AM EDT Date of Procedure 10/05/2024. Interpretation Right Eye Hypofluorescence. Left Eye Hypofluorescence. 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)- Primary Dry eye syndrome of both eyes Pseudophakia of both eyes Lens replaced by other means History of YAG laser capsulotomy of lens, right Posterior vitreous detachment of both eyes Vitreous degeneration documented in this encounter Administered Medications Inactive Administered Medications - up to 3 most recent administrations Medication Order MAR Action Action Date Dose Rate Site bevacizumab (Jase's) 1.25 mg intravitreal syringe (AVASTIN) 1.25 mg, ONCE, 1 dose, Starting on Ailyn 10/05/24 at 1253, Until Ailyn 10/05/24 at 1253Indications: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
[2024-10-07] VITALS (24 sets, daily range): BP systolic 133–155; BP diastolic 72–104; PULSE 81–109; TEMP 36.5–36.8; O2SAT 18–98; BMI 28.3; BMI 29.1
--- OUTSIDE RECORDS SUMMARY | 2024-10-07 11:58 | XMS_ITS | Encounter Summary ---
Author Organization [facility] Address [address] [place] [address] Care Team Providers Care State Inspector Name Role Phone Roney Leroy Primary Care Provider [phone] Source Comments In the event this information is protected by the Federal Confidentiality of Alcohol and Drug AbusePatient Records regulations: The Federal rules restrict any use of the information to criminally investigate or prosecute any alcohol or drug abuse patient.[facility] Encounter Details Date Type Department Care Team (Late st Contact Info) Description 04/16/2020 Patient Msg Rheumatology [address] [facility] [address] [facility] [place] [address] Balyee Leon MD [address] [place] [address] results Social History Tobacco Use Types Packs/Day Years Used Date Smoking Tobacco: Former Cigarettes Q uit: 06/21/1974 Smokeless Tobacco: Never Comments:socially only Alcohol Use Standard Drinks/Week Comments Yes 0 (1 standard drink = 0.6 oz pur e alcohol) socially PHQ-2 Answer Date Recorded PHQ-2 score 2 11/28/2018 Area Deprivation Index Answer Date Russell rded National Score (1-100), lower number is lower ri sk Not on file 01/16/2020 State Score (1-10), lower number is lower risk N ot on file 01/16/2020 Data from: https://www.neighborhoodatlas.medicine.[facility]/. Last address used for calculation Not on file 01/16/2020 Comments No Sex and Gender Information Value Date Recorded Sex Assigned at Not on file Legal Sex Female 9:11 AM EST Gender Identity Not on file Sexual Orientation Not on file COVID-19 Exposure Response Date Recorded In the last month, have you been in contact with someone who was confirmed or suspected to have Coronavirus / COVID-19? No / Unsure 04/19/2020 9:47 AM EST documented as of this encounter Functional Status [...] Karen Justin RN documented in this encounter Plan of Treatment Upcoming Encounters Date Type Department Care Team (Latest Contact Info) Description 10/23/2024 12:20 PM EDT Office Visit Rheumatology [address] [facility] [place] [address] Baylee Leon MD [address] [place] [address] for osteoporosis/osteoar thritis/pseudogout fu OV 6-12months./Last Prolia 09/04/24 12/28/2024 1:30 PM EST Office Visit [facility] Ophthalmology [address] [place] [address] Cristobal Shields MD [address] [place] [address] Diagnostics, [facility] [address] [address] *12 W, DFE/OCT/OPTOS/FAF, AVASTIN OU 04/19/2025 9:15 AM EDT Office Visit OP[facility] Ophthalmology [address] [address] Nic Santos MD [address] [place] [address] Diagnostics, [facility] [address] [address] Corneal Transplant yearly documented as of this encounter Visit Diagnoses Not on filedocumented in this encounter Care Teams State Inspector Relationship Specialty Start Date End Date Roney Leroy DO [address] [place] [address] PCP - General 05/19/00 documented as of this encounter
--- OUTSIDE RECORDS SUMMARY | 2024-10-07 11:58 | XMS_ITS | Clinical Summary ---
Author Organization [employer] [facility] tem Address [id number] [address] [place] [address] Care Team Providers Care Payroll Analyst Name Role Phone Unavailable Primary Care Provider Unavailabl e Social History Tobacco Use Types Packs/Day Years Used Date Smoking Tobacco: Never Assessed Childcare Answer Date Recorded Childcare Unknown 07/20/2018 Employment Answer Date Recorded Employment Unknown 07/20/2018 Comments Unknown Sex and Gender Information Value Date Recorded Sex Assigned at Not on file Legal Sex Female 11:31 AM EDT Gender Identity Not on file Sexual Orientation Not on file Plan of Treatment Health Maintenance Due Date Last Done Comments Depression Screening 1952 Tobacco Screening 1952 DTaP,Tdap and Td Vaccines (1 - Tdap) 1961 Fall Risk Screening 2007 COVID-19 Vaccine (2023-2 5 season) 2023 01/23/2022, 12/25/2020, 03/29/2020, Additional history exists Influenza Vaccine 10/09/2024 12/19/2021, , 09/25/2019, Additional history exists Zoster (Shingles) Vaccine Completed 09/22/2019, 03/2019 Medical Devices [place] [address] [employer]
--- OUTSIDE RECORDS SUMMARY | 2024-10-07 11:58 | XMS_ITS | Encounter Summary ---
Author Organization [facility] Address [address] [place] [address] Care Team Providers Care Overnight Cashier Name Role Phone Roney Leroy Primary Care Provider [phone] Source Comments In the event this information is protected by the Federal Confidentiality of Alcohol and Drug AbusePatient Records regulations: The Federal rules restrict any use of the information to criminally investigate or prosecute any alcohol or drug abuse patient.[facility] Reason for Visit * Reason Comments Radiology XR Encounter Details Date Type Department Care Team (Late st Contact Info) Description 04/19/2020 Radiology Radiology [address] [facility] [place] [address] Azul Nick, RT(R) Radiology XR Social History Tobacco Use Types Packs/Day Years [...] N ot on file 01/16/2020 Data from: https://www.neighborhoodatlas.medicine.[place]/. Last address used for calculation Not on [...] Entry Date Author No 06/26/2016 5:00 PM JOCELINT Karen Justin RN documented in this encounter Progress Notes * Azul Nick (Rt) - 04/19/2020 10:08 AM EST Radiology Service Progress Note PATIENT NAME: Lizz Lorenz DATE OF SERVICE: April 19, 2020 TIME: 10:08 AM PATIENT IDENTITY VERIFICATION COMPLETED USING TWO (2) IDENTIFIERS: Name and Date of confirmedby patient verbally. FALL SCREENING: Has the patient had 2 falls in the last year or 1 fall with injury or currently using an Ambulatory Assistive Device (Walker, Cane, Wheelchair, Crutches, etc.)? No PATIENT GENDER DATA: Female. status: : No status: NO. PATIENT RELEVANT IMPLANT DATA REVIEWED: Not Applicable RADIOLOGY DEPARTMENT: General X-ray: Exam(s) Completed: Lower Extremity X- Ray(s): Knee, AP / Lat / Merchant Bilateral and Wt. Bearing: PERIPHERAL IV DATA: Not applicable SIGNED BY: RT Lisa April 19, 2020 10:08 AM documented in this encounter Plan of Treatment Upcoming Encounters Date Type Department Care Team (Latest Contact Info) Description 10/23/2024 12:20 PM EDT Office Visit Rheumatology [address] [place] [address] Baylee Leon MD [address] [place] [address] for osteoporosis/osteoar thritis/pseudogout fu OV 6-12months./Last Prolia 09/04/24 12/28/2024 1:30 PM EST Office Visit [facility] Ophthalmology [address] [place] [address] Cristobal Shields MD [address] [place] [address] Diagnostics, [facility] [address] [address] *12 W, DFE/OCT/OPTOS/FAF, AVASTIN OU 04/19/2025 9:15 AM EDT Office Visit [facility] Ophthalmology [address] [address] Nic Santos MD [address] [place] [address] Diagnostics, [facility] [address] [address] Corneal Transplant yearly documented as of this encounter Visit Diagnoses Not on filedocumented in this encounter Care Teams Overnight Cashier Relationship Specialty Start Date End Date Roney Leroy DO [address] [address] PCP - General 05/19/00 documented as of this encounter
--- OUTSIDE RECORDS SUMMARY | 2024-10-07 11:58 | XMS_ITS | Encounter Summary ---
Author Organization [facility] Address [address] [place] [address] Care Team Providers Care Steel Detailer Name Role Phone Roney Leroy Primary Care Provider [phone] Source Comments In the event this information is protected by the Federal Confidentiality of Alcohol and Drug AbusePatient Records regulations: The Federal rules restrict any use of the information to criminally investigate or prosecute any alcohol or drug abuse patient.[facility] Encounter Details Date Type Department Care Team (Late st Contact Info) Description 06/28/2020 Patient Msg [facility]umat[facility] [address] [facility] [place] [address] Baylee Leon MD [address]00 [place] [address] update Social History Tobacco Use Types Packs/Day Years [...] N ot on file 01/16/2020 Data from: https://www.neighborhoodatlas.medicine.[facility]/. Last address used for calculation Not [...] have Coronavirus / COVID-19? No / Unsure 06/25/2020 12:46 PM EDT documented as of this encounter Functional Status [...] 12:20 PM EDT Office Visit Rheumatology 5700 [facility] [place] [address] Baylee Leon MD [address] [place] [address] for osteoporosis/osteoar thritis/pseudogout fu OV 6-12months./Last Prolia 09/04/24 12/28/2024 1:30 PM EST Office Visit [facility] Ophthalmology 5700 [place] [address] Cristobal Shields MD 9500 [place] [address] Diagnostics, [facility] [address] [address] *12 W, DFE/OCT/OPTOS/FAF, AVASTIN OU 04/19/2025 9:15 AM EDT Office Visit [facility] Ophthalmology [address] [address] Nic Santos MD 6740 [place] [address] Diagnostics, [facility] [address] [address] Corneal Transplant yearly documented as of this encounter Visit Diagnoses Not on filedocumented in this encounter Care Teams Steel Detailer Relationship Specialty Start Date End Date Roney Leroy, [address] [place] [address] PCP - General 05/19/00 documented as of this encounter
--- OUTSIDE RECORDS SUMMARY | 2024-10-07 11:58 | XMS_ITS | Encounter Summary ---
Author Organization [facility] Address [id number] [place] [address] Care Team Providers Care Waste Water Plant Operator Name Role Phone Unavailable Primary Care Provider Unavailabl e Encounter Details Date Type Department Care Team ([facility] st Contact Info) Description 10/27/2022 Orders Only [facility] [address] [place] [phone] Claudio Kraus MD [address] [facility], [facility] [place] [address] Social History Tobacco Use Types Packs/Day Years Used Date Smoking Tobacco: Never Assessed Childcare Answer Date Recorded Childcare Unknown 07/20/2018 Employment Answer Date Recorded Employment Unknown 07/20/2018 Comments Unknown Sex and Gender Information Value Date Recorded Sex Assigned at Not on file Legal Sex Female 11:31 AM EDT Gender Identity Not on file Sexual Orientation Not on file documented as of this encounter Plan of Treatment Not on file documented as of this encounter Procedures Procedure Name Priority Date/Time Associated Diagnosis Comments MULTIPLE LABS Routine 10/24/2022 3:34 PM EDT documented in this encounter Results * Multiple labs (10/24/2022 3:34 PM EDT) us Claudio Kraus MD [facility] Final Result MANUALLY TRANSCRIBED RESULTS documented in this encounter Visit Diagnoses Not on filedocumented in this encounter
--- OUTSIDE RECORDS SUMMARY | 2024-10-07 11:58 | XMS_ITS | Encounter Summary ---
Author Organization [facility] Address [facility] [place] [address] Care Team Providers Care Tile Conduit Layer Name Role Phone RadRoney lizama Jacqueline SIFUENTES Primary Care Provider [phone] Source Comments In the event this information is protected by the Federal Confidentiality of Alcohol and Drug AbusePatient Records regulations: The Federal rules restrict any use of the information to criminally investigate or prosecute any alcohol or drug abuse patient.[facility] Encounter Details Date Type Department Care Team (Late st Contact Info) Description 08/30/2020 Patient Msg Admitting [address] [place] [address] Provider, [facility] Surgical Registration appointment 08/30/2020 Social History Tobacco Use Types Packs/Day Years [...] N ot on file 01/16/2020 Data from: https://www.neighborhoodatlas.[facility]/. Last address used for calculation Not [...] have Coronavirus / COVID-19? No / Unsure 08/27/2020 10:41 AM EDT documented as of this encounter Functional [...] 12:20 PM EDT Office Visit Rheumatology 5700 [facility] [place] [address] Baylee Leon MD [address] [facility] [place] [address] for osteoporosis/osteoar thritis/pseudogout fu OV 6-12months./Last Prolia 09/04/24 12/28/2024 1:30 PM EST Office Visit [facility] Ophthalmology 5700 [place] [address] Cristobal Shields MD 2493 [place] [address] Diagnostics, [facility] [address] [address] *12 W, DFE/OCT/OPTOS/FAF, AVASTIN OU 04/19/2025 9:15 AM EDT Office Visit [facility] Op[facility] [address] [address] Nic Santos MD [address] [place] [address] Diagnostics, [facility] [address] [address] Corneal Transplant yearly documented as of this encounter Visit Diagnoses Not on filedocumented in this encounter Care Teams Tile Conduit Layer Relationship Specialty Start Date End Date Roney Leroy DO [address] [place] [address] PCP - General 05/19/00 documented as of this encounter
--- OUTSIDE RECORDS SUMMARY | 2024-10-07 11:59 | XMS_ITS | Encounter Summary ---
Author Organization [facility] Address [address] [place] [address] Care Team Providers Care Bridge Manager Name Role Phone Roney Leroy Jacqueline SIFUENTES Primary Care Provider [phone] Source Comments In the event this information is protected by the Federal Confidentiality of Alcohol and Drug AbusePatient Records regulations: The Federal rules restrict any use of the information to criminally investigate or prosecute any alcohol or drug abuse patient.[facility] Encounter Details Date Type Department Care Team (Latest Contact Info) Description 10/04/2024 Travel Social History Tobacco Use Types Packs/Day Years [...] is lower risk 8 08/03/2022 Data from: https://www.neighborhoodatlas.medicine.[facility].edu/. Last address used for calculation [address] [place], [place] [address] 08/03/2022 Comments No Sex and Gender Information [...] 12:20 PM EDT Office Visit Rheumatology 5700 [place] [address] Baylee Leon MD 45[address] [facility] [address] for osteoporosis/osteoar thritis/pseudogout fu OV 6-12months./Last Prolia 09/04/24 12/28/2024 1:30 PM EST Office Visit [facility] Ophthalmology 57[address] [facility] [place] [address] Cristobal Shields MD [address] [place] [address] Diagnostics, [facility] [address] [address] *12 W, DFE/OCT/OPTOS/FAF, AVASTIN OU 04/19/2025 9:15 AM EDT Office Visit [facility] Op[facility]mology [address] [address] Nic Santos MD 9500 [place] [address] Diagnostics, [facility] [address] [address] Corneal Transplant yearly documented as of this encounter Visit Diagnoses Not on filedocumented in this encounter Care Teams Bridge Manager Relationship Specialty Start Date End Date Roney Leroy DO [address] [address] PCP - General 05/19/00 documented as of this encounter
--- OUTSIDE RECORDS SUMMARY | 2024-10-07 11:59 | XMS_ITS | Encounter Summary ---
Author Organization [facility] Address [address] [place] [address] Care Team Providers Care Group Exercise Manager Name Role Phone Roney Leroy Primary Care Provider [phone] Source Comments In the event this information is protected by the Federal Confidentiality of Alcohol and Drug AbusePatient Records regulations: The Federal rules restrict any use of the information to criminally investigate or prosecute any alcohol or drug abuse patient.[facility] Encounter Details Date Type Department Care Team (Late st Contact Info) Description 03/10/2023 Patient Msg Ophthalmology [address] [address] Provider, [facility]cf Appointment with Dr. Santos Social History Tobacco Use Types Packs/Day Years [...] is lower risk 8 08/03/2022 Data from: https://www.neighborhoodatlas.[facility]/. Last address used for calculation [address] 08/03/2022 Comments No Sex and Gender Information [...] 12:20 PM EDT Office Visit Rheumatology [address] [facility] [place] [address] Baylee Leon MD [address] [facility] [id number] for osteoporosis/osteoar thritis/pseudogout fu OV 6-12months./Last Prolia 09/04/24 12/28/2024 1:30 PM EST Office Visit [facility] Ophthalmology 57[address] [place] [address] Cristobal Shields MD 0[address] [place] [address] Diagnostics, [facility] [address] [address] *12 W, DFE/OCT/OPTOS/FAF, AVASTIN OU 04/19/2025 9:15 AM EDT Office Visit [facility] Op[facility]mology [address] [address] Nic Santos MD 8813 [place] [address] Diagnostics, [facility] [address] [address] Corneal Transplant yearly documented as of this encounter Visit Diagnoses Not on filedocumented in this encounter Care Teams Group Exercise Manager Relationship Specialty Start Date End Date Roney Leroy DO [address] [place] [address] PCP - General 05/19/00 documented as of this encounter
--- OUTSIDE RECORDS SUMMARY | 2024-10-07 11:59 | XMS_ITS | Encounter Summary ---
Author Organization [facility] Address [address] [facility] [place] [address] Care Team Providers Care Ensemble Member Name Role Phone Roney Leroy DO Primary Care Provider [phone] Marifer Castellanos MD Unavailable Jc Escobar DO Unavailable [phone] Baylee Leon MD Unavailable [phone] Melvin Dick DO Primary Care Provider [phone] Meir Morrissey MD Unavailable [phone] Encounter Details Date Type Department Care Team (Late st Contact Info) Description 12/10/2022 Abstract [facility] [address] [facility] [address] [place] [address] Roney Leroy DO [address] [facility] [address] [place] [address] Social History Tobacco Use Types Packs/Day Years Used Date Smoking Tobacco: Never Smokeless Tobacco: Never Alcohol Use Standard Drinks/Week Comments Yes 0 (1 standard drink = 0.6 oz pur e alcohol) caffeine 1-2 cups/day Humiliation, Afraid, Rape, and Kick questionnair e Answer Date Recorded Within the last year, have y ou been afraid of your partner or ex-partner? No 11/10/2022 Within the last year, have y ou been humiliated or emotionally abused in other ways by your partner or ex-partner? No Within the last year, have y ou been kicked, hit, slapped, or otherwise physically hurt by your partner or ex-partner? No 11/10/2022 Within the last year, have y ou been raped or forced to have any kind of sexual activity by your partner or ex-partner? No 11/10/2022 Social Connection and Isolat ion Panel [NHANES] Answer Date Recorded In a typical week, how many times do you talk on the phone with family, friends, or neighbors? More than three times a week 11/10/2022 How often do you get togethe r with friends or relatives? Once a week 11/10/2022 How often do you attend chur or episcopal services? More than 4 times per year 11/10/2022 Do you belong to any clubs o r organizations such as advent groups, unions, fraternal or athletic groups, or school groups? Yes 11/10/2022 How often do you attend meet ings of the clubs or organizations you belong to? Never 11/10/2022 Are you , , di vorced, , never , or living with a partner? 11/10/2022 AUDIT-C Answer Date Recorded Q1: How often do you have a drink containing alcohol? Never 11/10/2022 Q2: How many drinks containi ng alcohol do you have on a typical day when you are drinking? Patient does not drink Q3: How often do you have si x or more drinks on one occasion? Never 11/10/2022 Overall Financial Resource Strain (CARDIA) Answe r Date Recorded How hard is it for you to pa y for the very basics like food, housing, medical care, and heating? Not hard at all 11/10/2022 PHQ-2 Answer Date Recorded Patient Health Questionnaire-2 Score 0 11/11/2022 [facility] [place] of Occupat ional Health - Occupational Stress Questionnaire Answer Date Recorded Do you feel stress - tense, restless, nervous, or anxious, or unable to sleep at night because your mind is troubled all the time - these days? Not at all 11/10/2022 Exercise Vital Sign Answer Date Recorde d On average, how many days pe r week do you engage in moderate to strenuous exercise (like a brisk walk)? Patient declined On average, how many minutes do you engage in exercise at this level? Patient declined 11/10/2022 Hunger Vital Sign Answer Date Recorded Within the past 12 months, y ou worried that your food would run out before you got the money to buy more. Never true 11/11/19 23 Within the past 12 months, t he food you bought just didn't last and you didn't have money to get more. Never true 11/10/2022 PRAPARE - Transportation Answer Date Re corded In the past 12 months, has l ack of transportation kept you from medical appointments or from getting medications? No 04/2022 In the past 12 months, has l ack of transportation kept you from meetings, work, or from getting things needed for daily living? No 11/10/2022 Housing Stability Vital Sign Answer Tony e Recorded In the last 12 months, was t here a time when you were not able to pay the mortgage or rent on time? No 11/10/2022 In the last 12 months, how many places have you lived? 1 11/10/2022 In the last 12 months, was t here a time when you did not have a steady place to sleep or slept in a nursing home (including now)? No 11/10/2022 Comments Unknown Sex and Gender Information Value Date Recorded Sex Assigned at Not on file Legal Sex Female 7:11 PM EDT Gender Identity Not on file Sexual Orientation Not on file Occupation Industry Job Start Date Job End Date retired Not on file Not on file Not on file COVID-19 Exposure Response Date Recorded In the last 10 days, have yo u been in contact with someone who was confirmed or suspected to have Coronavirus/COVID-19? No / Unsure 11/10/2022 3:43 PM EDT documented as of this encounter Plan of Treatment Upcoming Encounters Date Type Department Care Team (Late st Contact Info) Description 11/02/2024 10:00 AM EDT Office Visit [facility] [address] [facility] [place] [address] 08/30/2025 10:45 AM EDT Office Visit [facility] [address] [phone] Jc Escobar DO [address] [place] [address] documented as of this encounter Visit Diagnoses Not on filedocumented in this encounter Care Teams Ensemble Member Relationship Specialty Start Date End Date Roney Leroy DO [address] [facility] 230 [place] [address] PCP - General Family Medicine 08/04/22 09/28/23 Melvin Dick DO [address] [facility] 230 [place] [address] PCP - General Family Medicine 09/29/23 Marifer Castellanos MD [address] [facility] [place] [address] Oncology 01/29/23 Jc Escobar DO [address] [address] Referring Physician General Surgery 01/29/23 Baylee Leon MD [address] [place] [address] Referring Physician Rheumatology 01/29/23 Meir Morrissey MD [address] [facility] 230 [place] [address] Referring Physician Gastroenterology 03/15/24 documented as of this encounter
--- OUTSIDE RECORDS SUMMARY | 2024-10-07 11:59 | XMS_ITS | Encounter Summary ---
Author Organization [facility] Address [address] [facility] [address] Care Team Providers Care Fabrication Welder Name Role Phone Marifer Castellanos MD Unavailable Jc Escobar DO Unavailable [phone] Baylee Leon MD Unavailable [phone] Melvin Dick DO Primary Care Provider [phone] Meir Morrissey MD Unavailable [phone] Encounter Details Date Type Department Care Team (Late st Contact Info) Description 09/11/2024 Abstract [facility] 230 [address] [facility] [address] [place] [address] Melvin Dick DO [address] [facility] [address] [place] [address] Social History Tobacco Use Types Packs/Day Years [...] How often do you attend chur or latter day services? More than 4 times per year 11/10/2022 Do you belong to any clubs o r organizations such as muslim groups, unions, fraternal or athletic groups, or [...] Date Recorded Patient Health Questionnaire-2 Score 0 03/15/2024 [facility] [place] of Occupat ional Health - Occupational Stress [...] place to sleep or slept in a assisted (including now)? No 11/10/2022 Comments Unknown Sex and Gender Information Value Date Recorded Sex Assigned at Not on file Legal Sex Female 7:11 PM EDT Gender Identity Not on file Sexual Orientation Not on file Occupation Industry Job Start Date Job End Date retired Not on file Not on file Not on file documented as of this encounter Plan of Treatment Upcoming Encounters Date Type Department Care Team (Late st Contact Info) Description 11/02/2024 10:00 AM EDT Office Visit [facility] [address] [facility] [place] [place] [phone] 08/30/2025 10:45 AM EDT [facility] Visit [facility] 7[address] [facility] 150 [place] [address] Jc Escobar, DO 703 [facility] 150 [place] [address] documented as of this encounter Visit Diagnoses Not on filedocumented in this encounter Additional Health Concerns Assessment Noted Time PHQ-9 Depression Total Score: 0 03/15/19 25 1:00 PM EST documented as of this encounter Care Teams Fabrication Welder Relationship Specialty Start Date End Date Melvin Dick DO [address] [facility] [address] [place] [address] PCP - General Family Medicine 09/29/23 Marifer Castellanos MD 701 [place] [address] Oncology 01/29/23 Jc Escobar DO 703 [facility] 150 [place] [address] Referring Physician General Surgery 01/29/23 Baylee Leon MD 5700 [facility] [address] Referring Physician Rheumatology 01/29/23 Meir Morrissey MD [address] [facility] [address] [place] [address] Referring Physician Gastroenterology 03/15/24 documented as of this encounter
--- OUTSIDE RECORDS SUMMARY | 2024-10-07 11:59 | XMS_ITS | Encounter Summary ---
Author Organization [facility] Address [address] [facility] [place] [address] Care Team Providers Care Key Cutter Name Role Phone Roney Leroy DO Primary Care Provider [phone] Marifer Castellanos MD Unavailable Jc Escobar DO Unavailable [phone] Baylee Leon MD Unavailable [phone] Melvin Dick DO Primary Care Provider [phone] Meir Morrissey MD Unavailable [phone] Encounter Details Date Type Department Care Team (Late st Contact Info) Description 03/17/2023 Orders Only [facility] 230 [address] [facility] [address] [place] [address] Melvin Dick DO [address] [facility] [address] [place] [address] Social History Tobacco Use Types [...] How often do you attend chur or worship services? More than 4 times per year 11/10/2022 Do you belong to any clubs o r organizations such as restoration groups, unions, fraternal or athletic groups, or [...] Date Recorded Patient Health Questionnaire-2 Score 0 01/29/2023 [facility] of Occupat ional Health - Occupational Stress [...] place to sleep or slept in a prison (including now)? No 11/10/2022 Comments Unknown Sex [...] 11/02/2024 10:00 AM EDT Office Visit [facility] [address] [place] [phone] 08/30/2025 10:45 AM EDT [facility] Visit [facility] 703 [facility] 150 [place] [address] Jc Escobar DO [address] [address] documented as of this encounter Visit Diagnoses Not on filedocumented in this encounter Additional Health Concerns Assessment Noted Time PHQ-9 Depression Total Score: 0 01/30/20 10:57 AM EST documented as of this encounter Care Teams Key Cutter Relationship Specialty Start Date End Date Roney Leroy DO [address] [facility] 230 [place] [address] PCP - General Family Medicine 08/04/22 09/28/23 Melvin Dick DO [address] [facility] 230 [place] [address] PCP - General Family Medicine 09/29/23 Marifer Castellanos MD 701 [place] [address] Oncology 01/29/23 Jc Escobar DO [address] [address] Referring Physician General Surgery 01/29/23 Baylee Leon MD [address] [facility] [address] Referring Physician Rheumatology 01/29/23 Meir Morrissey MD [address] [facility] 230 [place] [address] Referring Physician Gastroenterology 03/15/24 documented as of this encounter
--- OUTSIDE RECORDS SUMMARY | 2024-10-07 11:59 | XMS_ITS ---
Author Organization [facility] Address [address] [facility] [place] [address] Care Team Providers Care Cushion Sewer Name Role Phone Marifer Castellanos MD Unavailable Jc Escobar DO Unavailable Baylee Leon MD Unavailable [phone] Melvin Dick DO Primary Care Provider [phone] Meir Morrissey MD Unavailable [phone] Active Problems Problem Noted Date Diagnosed Date Personal history of malignant neoplasm of breast 08/24/2024 Overweight (BMI 25.0-29.9) 12/08/2022 SVT (supraventricular tachycardia) 12/08/2022 Vertigo 12/08/2022 Calculus of tonsil 08/13/2022 Change in bowel habits 08/13/2022 Chronic GERD 08/13/2022 Chronic sinusitis 08/13/2022 Frontal sinusitis 08/13/2022 Diverticula of colon 08/13/2022 Ductal carcinoma in situ (DCIS) of right breast 08/13/2022 Dysgeusia 08/13/2022 Hyperlipidemia 08/13/2022 Hypertension 08/13/2022 Irritable bowel syndrome with diarrhea Kidney stone on right side 08/13/2022 Lymphedema of breast 08/13/2022 Osteoarthritis of knee 08/13/2022 Postmenopausal atrophic vaginitis 08/13/2022 Rectocele 08/13/2022 Uterine prolapse 08/13/2022 Gout 08/13/2022 History of kidney stones 08/13/2022 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 01/27/2022 PCO (posterior capsular opacification), bilatera l 01/27/2022 Pseudophakia 01/27/2022 Fuchs' corneal dystrophy of left eye 04/14/2021 Mild intermittent asthma without complication History of breast cancer 08/27/2020 Lower leg edema 08/27/2020 Osteopenia of multiple sites 12/02/2018 Estrogen receptor positive neoplasm 09/16/2018 Carcinoma in situ of breast 07/20/2018 Contusion, knee and lower le g, unspecified laterality, initial encounter 05/04/2017 Primary osteoarthritis of both knees 05/04/2017 Inflammatory arthritis 12/17/2016 Long-term use of Plaquenil 06/15/2016 Pseudogout involving multiple joints 06/15/2016 Foot deformity, bilateral 03/17/2016 Hammer toes, bilateral 03/17/2016 Status post bilateral knee replacements 09/03/19 16 Elevated C-reactive protein (CRP) 02/25/2015 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 Past Treatment and Therapy Plans No past plan information found. Lifetime Dose Tracking * Chemical Lifetime Dose Automatic Entry Manual Entr y Radiation 5 mSv 5 mSv 0 mSv Resolved Problems Problem Noted Date Diagnosed Date Resolved Date Microcalcification of right breast on mammogram 09/29/2023 09/29/2023 Anxiety 08/13/2022 01/28/2023 Impairment of balance 08/13/20222023 Protein calorie malnutrition (HHS-HCC) 08/13/2022 11/30/2022 Pre-operative examination 04/14/2021 Joint stiffness of multiple sites 07/22/2017 09/29/2023
--- OUTSIDE RECORDS SUMMARY | 2024-10-07 11:59 | XMS_ITS | Encounter Summary ---
Author Organization [facility] Address [facility] [place] [address] Care Team Providers Care Materials Clerk Name Role Phone Roney Leroy Primary Care Provider [phone] Source Comments In the event this information is protected by the Federal Confidentiality of Alcohol and Drug AbusePatient Records regulations: The Federal rules restrict any use of the information to criminally investigate or prosecute any alcohol or drug abuse patient.[facility] Encounter Details Date Type Department Care Team (Late st Contact Info) Description 08/30/2023 Patient [facility] -[address] [place] [address] Yaneth Yoon RPh At your next appointment, choose [facility] Social History Tobacco Use Types Packs/Day Years Used Date Smoking Tobacco: Former Cigarettes Q uit: 06/21/1974 Smokeless Tobacco: Never Comments:socially only Alcohol Use Standard Drinks/Week Comments Yes 0 (1 standard drink = 0.6 oz pur e alcohol) socially PHQ-2 Answer Date Recorded PHQ-2 score 2 11/28/2018 Area Deprivation Index Answer Date Russell rded National Score (1-100), lower number is lower ri 87 08/03/2022 State Score (1-10), lower number is lower risk 8 08/03/2022 Data from: https://www.neighborhoodatlas.[facility]/. Last address used for calculation [address] 08/03/2022 Comments No Sex and Gender Information [...] 12:20 PM EDT Office Visit Rheumatology [address] [facility] [place] [address] Baylee Leon MD [address] [facility] [place] [address] for osteoporosis/osteoar thritis/pseudogout fu OV 6-12months./Last Prolia 09/04/24 12/28/2024 1:30 PM EST Office Visit [facility] Ophthalmology [address] [place] [address] Cristobal Shields MD 9245 [place] [address] Diagnostics, [facility] [address] [address] *12 W, DFE/OCT/OPTOS/FAF, AVASTIN OU 04/19/2025 9:15 AM EDT Office Visit [facility] Ophthalmology [address] [address] Nic Santos MD [address] [place] [address] Diagnostics, [facility] [address] [address] Corneal Transplant yearly documented as of this encounter Visit Diagnoses Not on filedocumented in this encounter Care Teams Materials Clerk Relationship Specialty Start Date End Date Roney Leroy DO [address] [place] [address] PCP - General 05/19/00 documented as of this encounter
--- OUTSIDE RECORDS SUMMARY | 2024-10-07 11:59 | XMS_ITS | Encounter Summary ---
Author Organization [facility] Address [address] [facility] [place] [place] [address] Care Team Providers Care Excel Analyst Name Role Phone Marifer Castellanos MD Unavailable Jc Escobar DO Unavailable Baylee Leon MD Unavailable [phone] Melvin Dick DO Primary Care Provider Meir Morrissey MD Unavailable [phone] Encounter Details Date Type Department Care Team (Late st Contact Info) Description 10/29/2023 [facility] [address] [facility] [address] [place] [address] Melvin Dick DO [address] [facility] [address] [place] [address] Social History Tobacco Use Types [...] How often do you attend chur or taoist services? More than 4 times per year 11/10/2022 Do you belong to any clubs o r organizations such as buddhism groups, unions, fraternal or athletic groups, or [...] Date Recorded Patient Health Questionnaire-2 Score 0 09/29/2023 [facility] of Occupat ional Health - Occupational Stress [...] [facility] [address] [facility] [place] [phone] 08/30/2025 10:45 AM EDT Office Visit [facility] [address] [facility] 150 [place] [address] Jc Escobar, DO 703 [facility] 150 [place] [address] documented as of this encounter Visit Diagnoses Not on filedocumented in this encounter Additional Health Concerns Assessment Noted Time PHQ-9 Depression Total Score: 0 09/29/19 10:41 AM EDT documented as of this encounter Care Teams Excel Analyst Relationship Specialty Start Date End Date Melvin Dick DO [address] [facility] [address] [place] [address] PCP - General Family Medicine 09/29/23 Marifer Catsellanos MD [address] [place] [address] Oncology 01/29/23 Jc Escobar DO 703 [facility] 150 [place] [address] Referring Physician General Surgery 01/29/23 Baylee Leon MD [address]00 [facility] [place] [address] Referring Physician Rheumatology 01/29/23 Meir Morrissey MD [address] [facility] 230 [place] [address] Referring Physician Gastroenterology 03/15/24 documented as of this encounter
--- OUTSIDE RECORDS SUMMARY | 2024-10-07 11:59 | XMS_ITS | Encounter Summary ---
Author Organization [facility] Address [address] [facility] [place] [address] Care Team Providers Care Fabricating Machine Operator Name Role Phone Marifer Castellanos MD Unavailable Jc Escobar DO Unavailable Baylee Leon MD Unavailable [phone] Melvin Dick DO Primary Care Provider [phone] Meir Morrissey MD Unavailable [phone] Encounter Details Date Type Department Care Team (Late st Contact Info) Description 10/29/2023 [facility] [address] [facility] [address] [place] [address] Melvin Dick DO [address] [facility] [address] [place] [address] Social History Tobacco Use Types [...] How often do you attend chur or evangelical services? More than 4 times per year 11/10/2022 Do you belong to any clubs o r organizations such as yazdanism groups, unions, fraternal or athletic groups, or [...] Recorded Patient Health Questionnaire-2 Score 0 09/29/2023 [facility] [place] of Occupat ional Health - Occupational Stress [...] place to sleep or slept in a longterm (including now)? No 11/10/2022 Comments Unknown Sex [...] [facility] [address] [facility] [place] [phone] [phone] 08/30/2025 10:45 AM EDT Office Visit [facility] 7[address] [facility] 150 [place] [address] Jc Escobar, DO 703 [facility] 150 [place] [address] documented as of this encounter Visit Diagnoses Not on filedocumented in this encounter Additional Health Concerns Assessment Noted Time PHQ-9 Depression Total Score: 0 09/29/19 10:41 AM EDT documented as of this encounter Care Teams Fabricating Machine Operator Relationship Specialty Start Date End Date Melvin Dick DO [address] [facility] [address] [place] [address] PCP - General Family Medicine 09/29/23 Marifer Castellanos MD 701 [place] [address] Oncology 01/29/23 Jc Escobar DO 703 [facility] 150 [place] [address] Referring Physician General Surgery 01/29/23 Baylee Leon MD [address] [facility] [place] [address] Referring Physician Rheumatology 01/29/23 Meir Morrissey MD [address] [facility] 230 [place] [address] Referring Physician Gastroenterology 03/15/24 documented as of this encounter
--- OUTSIDE RECORDS SUMMARY | 2024-10-07 11:59 | XMS_ITS | Encounter Summary ---
Author Organization [facility] Address [address] [place] [address] Care Team Providers Care Fortune Cookie Maker Name Role Phone Roney Leroy Jacqueline SIFUENTES Primary Care Provider [phone] Source Comments In the event this information is protected by the Federal Confidentiality of Alcohol and Drug AbusePatient Records regulations: The Federal rules restrict any use of the information to criminally investigate or prosecute any alcohol or drug abuse patient.[facility] Encounter Details Date Type Department Care Team (Late st Contact Info) Description 10/28/2021 Patient Msg Ophthalmology [address] [address] Provider, [facility] Medication Instructions from Dr. Santos Social History Tobacco Use Types [...] (1-100), lower number is lower ri sk 74 07/22/2021 State Score (1-10), lower number is lower risk N ot on file 07/22/2021 Data from: https://www.neighborhoodatlas.[facility]/. Last address used for calculation [address] 07/22/2021 Comments No Sex and Gender Information Value Date Recorded Sex Assigned at Not on file Legal Sex Female 9:11 AM EST Gender Identity Not on file Sexual Orientation Not on file COVID-19 Exposure Response Date Recorded In the last 10 days, have yo u been in contact with someone who was confirmed or suspected to have Coronavirus/COVID-19? No / Unsure 09/30/2021 1:37 PM EDT documented as of this encounter [...] 12:20 PM EDT Office Visit Rheumatology [address] [facility] [place] [address] Baylee Leon MD [address] [facility] [place] [address] for osteoporosis/osteoar thritis/pseudogout fu OV 6-12months./Last Prolia 09/04/24 12/28/2024 1:30 PM EST Office Visit [facility] Ophthalmology 5700 [place] [address] Cristobal Shields MD [address] [place] [address] Diagnostics, [facility] [address] [address] *12 W, DFE/OCT/OPTOS/FAF, AVASTIN OU 04/19/2025 9:15 AM EDT Office Visit [facility] Ophthalmology [address] [address] Nic Santos MD 0989 [place] [address] Diagnostics, [facility] [address] [address] Corneal Transplant yearly documented as of this encounter Visit Diagnoses Not on filedocumented in this encounter Care Teams Fortune Cookie Maker Relationship Specialty Start Date End Date Roney Leroy DO [address] [place] [address] PCP - General 05/19/00 documented as of this encounter
--- OUTSIDE RECORDS SUMMARY | 2024-10-07 11:59 | XMS_ITS | Encounter Summary ---
Author Organization [facility] Address [address] [place] [address] Care Team Providers Care Internal Medicine Hospitalist Name Role Phone Roney Leroy Primary Care Provider [phone] Source Comments In the event this information is protected by the Federal Confidentiality of Alcohol and Drug AbusePatient Records regulations: The Federal rules restrict any use of the information to criminally investigate or prosecute any alcohol or drug abuse patient.[facility] Encounter Details Date Type Department Care Team (Late st Contact Info) Description 07/30/2024 Get Medical Advice Ophthalmology [address] [address] Nic Santos MD [address] [place] [address] Next appt. Social History Tobacco Use Types Packs/Day Years [...] is lower risk 8 08/03/2022 Data from: https://www.neighborhoodatlas.medicine.[facility]/. Last address used for calculation [address] [...] 12:20 PM EDT Office Visit Rheumatology 57[address] [facility] [place], [place] [phone] Baylee Leon MD [address] [facility] [address] [place] [phone] for osteoporosis/osteoar thritis/pseudogout fu OV 6-12months./Last Prolia 09/04/24 12/28/2024 1:30 PM EST Office Visit [facility] Ophthalmology 5700 [place] [address] Cristobal Shields MD 6905 [place] [address] Diagnostics, [facility] [address] [address] *12 W, DFE/OCT/OPTOS/FAF, AVASTIN OU 04/19/2025 9:15 AM EDT Office Visit [facility] Ophthalmology [address] [address] Nic Santos MD 1815 [place] [address] Diagnostics, [facility] [address] [address] Corneal Transplant yearly documented as of this encounter Visit Diagnoses Not on filedocumented in this encounter Care Teams Internal Medicine Hospitalist Relationship Specialty Start Date End Date Roney Leroy DO [address] [place] [address] PCP - General 05/19/00 documented as of this encounter
--- OUTSIDE RECORDS SUMMARY | 2024-10-07 11:59 | XMS_ITS | Encounter Summary ---
Author Organization [facility] Address [address] [place] [address] Care Team Providers Care Lamp Tester And Inspector Name Role Phone RadRoney lizama Jacqueline SIFUENTES Primary Care Provider [phone] Source Comments In the event this information is protected by the Federal Confidentiality of Alcohol and Drug AbusePatient Records regulations: The Federal rules restrict any use of the information to criminally investigate or prosecute any alcohol or drug abuse patient.[facility] Encounter Details Date Type Department Care Team (Late st Contact Info) Description 12/30/2021 Patient Msg Ophthalmology 2021 [place] [id number] Provider, Blessing Gutierrez Eye entrance change for your upcoming appointment Social History Tobacco Use Types Packs/Day Years Used Date Smoking Tobacco: Former Cigarettes Q uit: 06/21/1974 Smokeless Tobacco: Never Comments:socially only Alcohol Use Standard Drinks/Week Comments Yes 0 (1 standard drink = 0.6 oz pur e alcohol) socially PHQ-2 Answer Date Recorded PHQ-2 score 2 11/28/2018 Area Deprivation Index Answer Date Russell rded National Score (1-100), lower number is lower ri 74 07/22/2021 State Score (1-10), lower number is lower risk N ot on file 07/22/2021 Data from: https://www.neighborhoodatlas.[facility].edu/. Last address used for calculation [address] 07/22/2021 Comments No Sex and Gender Information [...] Visit Rheumatology [address] [place], [place] [phone] Baylee Leon MD [address] [place], [place] [phone] for osteoporosis/osteoar thritis/pseudogout fu OV 6-12months./Last Prolia 09/04/24 12/28/2024 1:30 PM EST Office Visit [facility] Ophthalmology 5700 [place] [address] Cristobal Shields MD [address] [place] [address] Diagnostics, [facility] [address] [address] *12 W, DFE/OCT/OPTOS/FAF, AVASTIN OU 04/19/2025 9:15 AM EDT Office Visit [facility] Ophthalmology [address] [address] Nic Santos MD [address] [place] [address] Diagnostics, [facility] [address] [address] Corneal Transplant yearly documented as of this encounter Visit Diagnoses Not on filedocumented in this encounter Care Teams Lamp Tester And Inspector Relationship Specialty Start Date End Date Roney Leroy DO [address] [place] [address] PCP - General 05/19/00 documented as of this encounter
--- OUTSIDE RECORDS SUMMARY | 2024-10-07 11:59 | XMS_ITS | Encounter Summary ---
Author Organization [facility] Address [address] [facility] [place] [address] Care Team Providers Care Machine Cutter Name Role Phone Marifer Castellanos MD Unavailable Jc Escobar DO Unavailable Baylee Leon MD Unavailable [phone] Melvin Dick DO Primary Care Provider Meir Morrissey MD Unavailable [phone] Encounter Details Date Type Department Care Team (Late st Contact Info) Description 12/08/2023 [facility] 230 [address] [facility] [address] [place] [address] Melvin Dick DO [address] [facility] [address] [place] [address] Social History Tobacco Use [...] How often do you attend chur or confucianism services? More than 4 times per year 11/10/2022 Do you belong to any clubs o r organizations such as presybeterian groups, unions, fraternal or athletic groups, or [...] Recorded Patient Health Questionnaire-2 Score 0 09/29/2023 [facility] [place] of Occupat ional Health - Occupational Stress [...] [facility] [address] [facility] [place] [phone] [phone] 08/30/2025 10:45 AM EDT [facility] 703 [facility] 150 [place] [address] Jc Escobar, DO 703 [facility] 150 [place] [address] documented as of this encounter Visit Diagnoses Not on filedocumented in this encounter Additional Health Concerns Assessment Noted Time PHQ-9 Depression Total Score: 0 09/29/19 10:41 AM EDT documented as of this encounter Care Teams Machine Cutter Relationship Specialty Start Date End Date Melvin Dick DO [address] [facility] [address] [place] [address] PCP - General Family Medicine 09/29/23 Marifer Castellanos MD [address] [place] [address] Oncology 01/29/23 Jc Escobar DO 703 [facility] 150 [place] [address] Referring Physician General Surgery 01/29/23 Baylee Leon MD [address] [facility] [place] [address] Referring Physician Rheumatology 01/29/23 Meir Morrissey MD [address] [facility] 230 [place] [address] Referring Physician Gastroenterology 03/15/24 documented as of this encounter
--- OUTSIDE RECORDS SUMMARY | 2024-10-07 11:59 | XMS_ITS | Encounter Summary ---
Author Organization [facility] Address [address] [facility] [place] [address] Care Team Providers Care Manager Software Name Role Phone Marifer Castellanos MD Unavailable Jc Escobar DO Unavailable [phone] Baylee Leon MD Unavailable [phone] Melvin Dick DO Primary Care Provider [phone] Meir Morrissey MD Unavailable [phone] Encounter Details Date Type Department Care Team (Late st Contact Info) Description 11/08/2023 [facility] 230 [address] [facility] [address] [place] [address] Melvin Dick DO [address] [facility] [address] [place] [address] Social History Tobacco Use Types [...] How often do you attend chur or zoroastrianism services? More than 4 times per year 11/10/2022 Do you belong to any clubs o r organizations such as latter-day groups, unions, fraternal or athletic groups, or [...] Recorded Patient Health Questionnaire-2 Score 0 09/29/2023 [facility] [place] of Occupat ional Health - Occupational Stress [...] place to sleep or slept in a group home (including now)? No 11/10/2022 Comments Unknown [...] [facility] [address] [facility] [place] [phone] [phone] 08/30/2025 10:45 AM EDT Office Visit [facility] 703 [facility] 150 [place] [address] Jc Escobar, DO 703 [facility] 150 [place] [address] documented as of this encounter Visit Diagnoses Not on filedocumented in this encounter Additional Health Concerns Assessment Noted Time PHQ-9 Depression Total Score: 0 09/29/19 10:41 AM EDT documented as of this encounter Care Teams Manager Software Relationship Specialty Start Date End Date Melvin Dick DO [address] [facility] [address] [place] [address] PCP - General Family Medicine 09/29/23 Marifer Castellanos MD [address] [place] [address] Oncology 01/29/23 Jc Escobar DO 703 [facility] 150 [place] [address] Referring Physician General Surgery 01/29/23 Baylee Leon MD 5700 [facility] [place] [place] [address] Referring Physician Rheumatology 01/29/23 Meir Morrissey MD [address] [facility] 230 [place] [address] Referring Physician Gastroenterology 03/15/24 documented as of this encounter
--- OUTSIDE RECORDS SUMMARY | 2024-10-07 11:59 | XMS_ITS | Encounter Summary ---
Author Organization [facility] Address [address] [facility] [place] [address] Care Team Providers Care Oil Well Service Unit Operator Name Role Phone Marifer Castellanos MD Unavailable Jc Escobar DO Unavailable [phone] Baylee Leon MD Unavailable [phone] Melvin Dick DO Primary Care Provider Meir Morrissey MD Unavailable [phone] Encounter Details Date Type Department Care Team (Late st Contact Info) Description 05/24/2024 [facility] [address] [facility] [address] [place] [address] Melvin Dick DO [address] [facility] [address] [place] [address] Social History Tobacco Use Types [...] How often do you attend chur or episcopalian services? More than 4 times per year 11/10/2022 Do you belong to any clubs o r organizations such as orthodoxy groups, unions, fraternal or athletic groups, or [...] Recorded Patient Health Questionnaire-2 Score 0 03/15/2024 [facility] of Occupat ional Health - Occupational Stress [...] place to sleep or slept in a usp (including now)? No 11/10/2022 Comments Unknown Sex [...] [facility] [address] [facility] [address] [phone] 08/30/2025 10:45 AM EDT Office Visit [facility] [address] [facility] 150 [place] [address] Jc Escobar, DO [address] [facility] 150 [place] [address] documented as of this encounter Visit Diagnoses Not on filedocumented in this encounter Additional Health Concerns Assessment Noted Time PHQ-9 Depression Total Score: 0 03/15/19 25 1:00 PM EST documented as of this encounter Care Teams Oil Well Service Unit Operator Relationship Specialty Start Date End Date Melvin Dick DO [address] [facility] [address] [place] [address] PCP - General Family Medicine 09/29/23 Marifer Castellanos MD [address] [place] [address] Oncology 01/29/23 Jc Escobar DO [address] [facility] 150 [place] [address] Referring Physician General Surgery 01/29/23 Baylee Leon MD [address] [facility] [place] [address] Referring Physician Rheumatology 01/29/23 Meir Morrissey MD [address] [facility] 230 [place] [address] Referring Physician Gastroenterology 03/15/24 documented as of this encounter
--- OUTSIDE RECORDS SUMMARY | 2024-10-07 11:59 | XMS_ITS | Encounter Summary ---
Author Organization [facility] Address [facility] [place] [address] Care Team Providers Care Matrix Bath Operator Name Role Phone Roney Leroy Primary Care Provider [phone] Source Comments In the event this information is protected by the Federal Confidentiality of Alcohol and Drug AbusePatient Records regulations: The Federal rules restrict any use of the information to criminally investigate or prosecute any alcohol or drug abuse patient.[facility] Encounter Details Date Type Department Care Team (Late st Contact Info) Description 08/26/2023 Patient [facility] -[address] [place] [address] Radha Tee RPh At your next appointment, choose [facility] Social History Tobacco Use [...] is lower risk 8 08/03/2022 Data from: https://www.neighborhoodatlas.[facility]/. Last address used for calculation [address] [...] 12:20 PM EDT Office Visit Rheumatology 5700 [facility] [place] [address] Baylee Leon MD [address] [facility] [address] [facility] [place] [address] for osteoporosis/osteoar thritis/pseudogout fu OV 6-12months./Last Prolia 09/04/24 12/28/2024 1:30 PM EST Office Visit [facility] 5700 [place] [address] Cristobal Shields MD 4288 [place] [address] Diagnostics, [facility] [address] [address] *12 W, DFE/OCT/OPTOS/FAF, AVASTIN OU 04/19/2025 9:15 AM EDT Office Visit [facility] [address] [address] iNc Santos MD 5611 [place] [address] Diagnostics, [facility] [address] [address] Corneal Transplant yearly documented as of this encounter Visit Diagnoses Not on filedocumented in this encounter Care Teams Matrix Bath Operator Relationship Specialty Start Date End Date Roney Leroy DO [address] [address] PCP - General 05/19/00 documented as of this encounter
--- OUTSIDE RECORDS SUMMARY | 2024-10-07 11:59 | XMS_ITS | Encounter Summary ---
Author Organization [facility] Address [address] [place] [address] Care Team Providers Care Electronic Data Processing Auditor Name Role Phone Roney Leroy Primary Care Provider [phone] Source Comments In the event this information is protected by the Federal Confidentiality of Alcohol and Drug AbusePatient Records regulations: The Federal rules restrict any use of the information to criminally investigate or prosecute any alcohol or drug abuse patient.[facility] Encounter Details Date Type Department Care Team (Late st Contact Info) Description 01/27/2022 Patient Msg Rheumatology 5700 [facility] [place] [address] Provider, Ccf Appointment rescheduled Social History Tobacco Use Types Packs/Day Years [...] N ot on file 07/22/2021 Data from: https://www.neighborhoodatlas.[facility]/. Last address used for calculation 8[address] [...] 12:20 PM EDT Office Visit Rheumatology 5700 [facility] [place] [address] Baylee Leon MD 5700 [facility] [place] [phone] for osteoporosis/osteoar thritis/pseudogout fu OV 6-12months./Last Prolia 09/04/24 12/28/2024 1:30 PM EST Office Visit [facility] 5700 [place] [address] Cristobal Shields MD 6884 [place] [address] Diagnostics, [facility] [address] [address] *12 W, DFE/OCT/OPTOS/FAF, AVASTIN OU 04/19/2025 9:15 AM EDT Office Visit [facility] [address] [address] Nic Santos MD 4913 [place] [address] Diagnostics, [facility] [address] [address] Corneal Transplant yearly documented as of this encounter Visit Diagnoses Not on filedocumented in this encounter Care Teams Electronic Data Processing Auditor Relationship Specialty Start Date End Date Roney Leroy DO [address] [place] [address] PCP - General 05/19/00 documented as of this encounter
--- OUTSIDE RECORDS SUMMARY | 2024-10-07 11:59 | XMS_ITS | Encounter Summary ---
Author Organization [facility] Address [address] [place] [address] Care Team Providers Care Contract Technical Writer Name Role Phone Marifer Castellanos MD Unavailable Jc Escobar DO Unavailable [phone] Baylee Leon MD Unavailable [phone] Melvin Dick DO Primary Care Provider [phone] Meir Morrissey MD Unavailable [phone] Encounter Details Date Type Department Care Team (Late st Contact Info) Description 06/26/2024 External Result Encounter [facility] External Department Unsolicited Elsa Siddiqui, CUT LACE MACHINE OPERATOR [address] [place] [address] Social History Tobacco Use Types Packs/Day Years [...] 11/10/2022 How often do you attend chur ch or sabianist services? More than 4 times per year 11/10/2022 Do you belong to any clubs o r organizations such as pentecostalism groups, unions, fraternal or athletic groups, or [...] Recorded Patient Health Questionnaire-2 Score 0 03/15/2024 [facility] of Occupat ional Health - Occupational Stress [...] exercise (like a brisk walk)? Patient declined 10 /04/2022 On average, how many minutes do you [...] 10:00 AM EDT Office Visit [facility] [address] [facility] [place] [address] 08/30/2025 10:45 AM EDT [facility] 703 [facility] 150 [place] [address] Jc Escobar DO 703 [facility] 150 [place] [address] documented as of this encounter Procedures Procedure Name Priority Date/Time Associated Diagnosis Comments BI MAMMOGRAM SCREENING TOMOSYNTHESIS BILATERAL 06/26/2024 10:37 AM EDT documented in this encounter Results * Bilateral screening mammogram with tomosynthesis (06/26/2024 10:37 AM EDT) Anatomical Region Laterality Modality Breast Bilateral Mammography 06/26/2024 10:3 7 AM EDT Impressions 06/26/2024 10:55 AM EDT NO MAMMOGRAPHIC EVIDENCE OF MALIGNANCY. ROUTINE FOLLOW-UP IS RECOMMENDED IN ONE YEAR. RESULT CODE: 1 Negative DENSITY CODE: 2 (approximately 25-50% glandular) There are scattered areas of fibroglandular density. FOLLOW UP: 1YR The false-negative rate of mammography is approximately 10-percent. Management of a palpable abnormality must be based on clinical grounds. Patient was entered into a reminder system with a target due date for the next mammogram. Impression dictated by: Maynor Quispe M.D. 06/26/2024 10:53 AM Dictation Location: [facility] Dictated By: Maynor Quispe MD 06/26/24 1037 Signed By: <Electronically signed by Maynor Quispe MD in OV> 06/26/24 1053 Narrative 06/26/2024 10:55 AM EDT [facility] [address] [place] [address] Mammography Report Signed Patient: Lizz Lorenz MR#: [id number] : 1940 Acct:[id number] Age/Sex: 84 / F Adm Date: 06/26/24 Loc: Room: Type: [facility] Attending Dr: Elsa Siddiqui ITINERANT TEACHER ASSISTANT Ordering Provider: Elsa Siddiqui APRN Date of Service: 06/26/24 Procedure(s): MM screening mammo BI w/CAD Accession Number(s): ([id number]) MM/MM screening mammo BI w/CAD: 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 SCREENING MAMMOGRAM - FULL FIELD DIGITAL WITH TOMOSYNTHESIS AND CAD COMPARISON:Comparisons dating back to 2021 Tomosynthesis craniocaudal and mediolateral oblique views of both breasts were obtained using low- dose digital technique. This examination was reviewed with the aid of CAD. The breast tissue is composed of scattered fibroglandular densities. There are no dominant masses, typically malignant calcifications or architectural distortion. Stable posttreatment changes right breast. There has been no significant interval change. 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 SCREENING MAMMOGRAM - FULL FIELD DIGITAL WITH TOMOSYNTHESIS AND CAD COMPARISON:Comparisons dating back to 2021 Tomosynthesis craniocaudal and mediolateral oblique views of both breastswere obtained using low- dose digital technique. This examination was reviewed with the aid ofCAD. The breast tissue is composed of scattered fibroglandular densities.There are no dominant masses, typically malignant calcifications or architectural distortion. Stableposttreatment changes right breast. There has been no significant interval change. MM/MM screening mammo BI w/CAD IMPRESSION: NO MAMMOGRAPHIC EVIDENCE OF MALIGNANCY. ROUTINE FOLLOW-UP IS RECOMMENDED IN ONE YEAR. RESULT CODE: 1 Negative DENSITY CODE: 2 (approximately 25-50% glandular) There are scattered areasof fibroglandular density. FOLLOW UP: 1YR The false-negative rate of mammography is approximately 10-percent. Management of a palpable abnormality must be based on clinical grounds. Patient was entered into a reminder system with a target due date for thenext mammogram. Impression dictated by: Maynor Quispe M.D. 06/26/2024 10:53 AM Dictation Location: [facility] Dictated By: Maynor Quispe MD 06/26/24 1037 Signed By: <Electronically signed by Maynor Quispe MD in OV> 06/26/24 1053 us Elsa Steve Sungclaribellyndon CUT LACE MACHINE OPERATOR IMG BI PROCEDURES Final Resul t documented in this encounter Visit Diagnoses Not on filedocumented in this encounter Additional Health Concerns Assessment Noted Time PHQ-9 Depression Total Score: 0 03/15/19 25 1:00 PM EST documented as of this encounter Care Teams Contract Technical Writer Relationship Specialty Start Date End Date Melvin Dick DO [address] [facility] 230 [place] [address] PCP - General Family Medicine 09/29/23 Marifer Castellanos MD 701 [place] [address] Oncology 01/29/23 Jc Escobar DO [address] [address] Referring Physician General Surgery 01/29/23 Baylee Leon MD 5700 [place] [address] Referring Physician Rheumatology 01/29/23 Meir Morrissey MD [address] [address] Referring Physician Gastroenterology 03/15/24 documented as of this encounter
--- OUTSIDE RECORDS SUMMARY | 2024-10-07 11:59 | XMS_ITS | Encounter Summary ---
Author Organization [facility] Address [address] [facility] [place] [address] Care Team Providers Care Head Start Teacher Name Role Phone Marifer Castellanos MD Unavailable Jc Escobar DO Unavailable [phone] Baylee Leon MD Unavailable [phone] Melvin Dick DO Primary Care Provider Meir Morrissey MD Unavailable [phone] Reason for Visit * Reason Comments Med Change Request Encounter Details Date Type Department Care Team (Late st Contact Info) Description 02/03/2024 Refill [facility] [address] [facility] [address] [place] [address] Larisa Hussein, COAL HAULER OPERATOR [address] [place] [address] Acute cough; Bronchitis Social History Tobacco Use Types Packs/Day Years [...] week 11/10/2022 How often do you attend [facility] or episcopalian services? More than 4 times per year 11/10/2022 Do you belong to any clubs o r organizations such as yazidism groups, unions, fraternal or athletic groups, or [...] Date Recorded Patient Health Questionnaire-2 Score 0 01/28/2024 [facility] of Occupat ional Health - Occupational Stress [...] money to buy more. Never true 11/11/19 Within the past 12 months, t he [...] place to sleep or slept in a senior care (including now)? No 11/10/2022 Comments Unknown Sex [...] 10:00 AM EDT Office Visit [facility] [address] [facility] [place] [address] 08/30/2025 10:45 AM EDT [facility] 703 [facility] 150 [place] [address] Jc Escobar DO 703 [facility] 150 [place] [address] documented as of this encounter Visit Diagnoses Diagnosis Acute cough Bronchitis Bronchitis, not specified as acute or chronic documented in this encounter Additional Health Concerns Assessment Noted Time PHQ-9 Depression Total Score: 0 09/29/19 10:41 AM EDT documented as of this encounter Care Teams Head Start Teacher Relationship Specialty Start Date End Date Melvin Dick DO [address] [facility] [address] [place] [address] PCP - General Family Medicine 09/29/23 Marifer Castellanos MD 701 [place] [address] Oncology 01/29/23 Jc Escobar DO 703 [facility] 150 [place] [address] Referring Physician General Surgery 01/29/23 Baylee Leon MD 5700 [facility] [place] [address] Referring Physician Rheumatology 01/29/23 Meir Morrissey MD [address] [facility] 230 [place] [address] Referring Physician Gastroenterology 03/15/24 documented as of this encounter
--- OUTSIDE RECORDS SUMMARY | 2024-10-07 11:59 | XMS_ITS | Encounter Summary ---
Author Organization [facility] Address [facility] [place] [address] Care Team Providers Care Roofing Foreman Name Role Phone Roney Leroy Primary Care Provider [phone] Source Comments In the event this information is protected by the Federal Confidentiality of Alcohol and Drug AbusePatient Records regulations: The Federal rules restrict any use of the information to criminally investigate or prosecute any alcohol or drug abuse patient.[facility] Encounter Details Date Type Department Care Team (Late st Contact Info) Description 03/01/2024 Patient [facility] -[address] [place] [address] Yaneth Yoon RPh At your next appointment, choose [facility]. Social History Tobacco Use Types Packs/Day Years [...] is lower risk 8 08/03/2022 Data from: https://www.neighborhoodatlas.[facility]/. Last address used for calculation [address] [...] 12:20 PM EDT Office Visit Rheumatology 5700 [facility] [place] [address] Baylee Leon MD [address] [facility] [place] [address] for osteoporosis/osteoar thritis/pseudogout fu OV 6-12months./Last Prolia 09/04/24 12/28/2024 1:30 PM EST Office Visit [facility] 5700 [place] [address] Cristobal Shields MD 70[address] [place] [address] Diagnostics, Eye Tech And [address] [address] *12 W, DFE/OCT/OPTOS/FAF, AVASTIN OU 04/19/2025 9:15 AM EDT Office Visit [facility] Op[facility]mology [address] [address] Nic Santos MD [address]12 [place] [address] Diagnostics, Eye Tech And [address] [address] Corneal Transplant yearly documented as of this encounter Visit Diagnoses Not on filedocumented in this encounter Care Teams Roofing Foreman Relationship Specialty Start Date End Date Roney Leroy DO [address] [address] PCP - General 05/19/00 documented as of this encounter
--- OUTSIDE RECORDS SUMMARY | 2024-10-07 11:59 | XMS_ITS | Encounter Summary ---
Author Organization [facility] Address [address] [facility] [place] [address] Care Team Providers Care Rubber Stamp Die Inspector Name Role Phone Marifer Castellanos MD Unavailable Jc Escobar DO Unavailable Baylee Leon MD Unavailable [phone] Melvin Dick DO Primary Care Provider Meir Morrissey MD Unavailable [phone] Encounter Details Date Type Department Care Team (Late st Contact Info) Description 09/15/2024 Abstract [facility] [address] [facility] [place] [address] Radha Ibrahim, [facility] 2800 [facility] [place] [address] Social History Tobacco Use Types Packs/Day Years [...] week 11/10/2022 How often do you attend [facility] or mosque services? More than 4 times per year 11/10/2022 Do you belong to any clubs o r organizations such as druze groups, unions, fraternal or athletic groups, or [...] Recorded Patient Health Questionnaire-2 Score 0 03/15/2024 [facility] of Occupat ional Health - Occupational Stress [...] place to sleep or slept in a fdc (including now)? No 11/10/2022 Comments Unknown Sex [...] [facility] [address] [place] [address] 08/30/2025 10:45 AM EDT [facility] 703 [facility] 150 [place] [address] Jc Escobar DO 703 [facility] 150 [place] [address] documented as of this encounter Visit Diagnoses Not on filedocumented in this encounter Additional Health Concerns Assessment Noted Time PHQ-9 Depression Total Score: 0 03/15/19 25 1:00 PM EST documented as of this encounter Care Teams Rubber Stamp Die Inspector Relationship Specialty Start Date End Date Melvin Dick DO [address] [facility] 230 [place] [address] PCP - General Family Medicine 09/29/23 Marifer Castellanos MD 701 [place] [address] Oncology 01/29/23 Jc Escobar DO 703 [facility] 150 [place] [address] Referring Physician General Surgery 01/29/23 Baylee Leon MD 5700 [place] [address] Referring Physician Rheumatology 01/29/23 Meir Morrissey MD [address] [facility] 230 [place] [address] Referring Physician Gastroenterology 03/15/24 documented as of this encounter
--- OUTSIDE RECORDS SUMMARY | 2024-10-07 11:59 | XMS_ITS | Clinical Summary ---
Author Organization [facility] Address [address] [place] [address] Phone Care Team Providers Care Instructor Hairspring Name Role Phone Roney Leroy Primary Care Provider [phone] Allergies No known active allergies Medications meloxicam (Mobic) 15 mg tablet 1 tablet (15 mg) once daily. 01/05/2022 Active acetaminophen (Tylenol) 500 mg tablet Take 2 tablets (1,000 mg) by mouth every 6 hours if needed. 03/17/2016 Active albuterol 90 mcg/actuation inhaler if needed. 05/30/2022 Active anastrozole (Arimidex) 1 mg tablet 1 tablet (1 mg total) once daily. 11/02/2018 Active cholecalciferol (Vitamin D-3) 50 MCG (2000 UT) tablet Take 2 tablets (4,000 Units) by mouth once daily. 02/26/2015 Active cyanocobalamin (Vitamin B-12) 1,000 mcg tablet Take 3 tablets (3,000 mcg) by mouth once daily. Active DULoxetine (Cymbalta) [address] capsule 1 capsule (60 mg) once daily. 05/30/2022 Active levothyroxine (Synthroid, Levoxyl) 88 mcg tablet 1 tablet (88 mcg) once daily in the morning. Take before meals. 11/29/2020 Active omeprazole (PriLOSEC) [address] capsule 1 capsule (40 mg) once daily. 11/12/2020 Active verapamil ER (Veralan PM) 240 mg 24 hr capsule Take 1 capsule (240 mg) by mouth once daily. 11/23/2022 Active Active Problems Problem Noted Date Diagnosed Date Overweight (BMI 25.0-29.9) 12/08/2022 Vertigo 12/08/2022 SVT (supraventricular tachycardia) 12/08/2022 Essential hypertension 12/08/2022 Family History Medical History Relation Name Comments Diabetes type I Brother Heart disease Brother Hypertension Father CABG Mother Diabetes type II Mother Hyperlipidemia Mother Hypertension Mother Relation Name Status Comments Brother Father Mother Social History Tobacco Use Types Packs/Day Years Used Date Smoking Tobacco: Former Cigarettes Q uit: 1973 Smokeless Tobacco: Never Tobacco Cessation:Counseling Given: Not Answered Alcohol Use Standard Drinks/Week Comments Yes 0 (1 standard drink = 0.6 oz pur e alcohol) special occasions Comments Unknown Sex and Gender Information Value Date Recorded Sex Assigned at Not on file Legal Sex Female 9:55 PM EST Gender Identity Not on file Sexual Orientation Not on file Last Filed Vital Signs Vital Sign Reading Time Taken Comments Blood Pressure 132/78 12/08/2022 11:13 AM EDT Pulse 87 12/08/2022 10:43 AM EDT Temperature - - Respiratory Rate - - Oxygen Saturation - - Inhaled Oxygen Concentration - - Weight 75.3 kg (166 lb) 12/08/2022 10:43 AM EDT Height 160 cm (5' 3 ) 12/08/2022 10:43 AM EDT Body Mass Index 29.41 12/08/2022 10:43 AM EDT Plan of Treatment Health Maintenance Due Date Last Done Comments Lipid Panel 1942 Medicare Annual Wellness Visit (AWV) 1942 TSH Level 1942 Diabetes Screening 1960 DTaP/Tdap/Td Vaccines (1 - Tdap) 1964 Bone Density Scan 2007 RSV High Risk: (Elderly (60+) or Population) (1 - 1-dose 75+ series) 2017 COVID-19 Vaccine ( season) 2023 01/23/2022, 12/25/2020, 03/29/2020, Additional history exists Influenza Vaccine (#1) 2024 2, 08/18/2021, 09/25/2019, Additional history exists Pneumococcal Vaccine Completed 02/23/2019, 12/31/2014, 07/11/2009 Zoster Vaccines Completed 09/22/2019, 04/10/2019 HIB Vaccines Aged Out No longer eligi ble based on patient's age to complete this topic HPV Vaccines Aged Out No longer eligi ble based on patient's age to complete this topic Hepatitis A Vaccines Aged Out No long er eligible based on patient's age to complete this topic Hepatitis B Vaccines Aged Out No long er eligible based on patient's age to complete this topic IPV Vaccines Aged Out No longer eligi ble based on patient's age to complete this topic Meningococcal Vaccine Aged Out No dheeraj deirdre eligible based on patient's age to complete this topic Rotavirus Vaccines Aged Out No longer eligible based on patient's age to complete this topic Insurance DR JOHNSON, [facility] [employer] MEDICARE DR JOHNSON, [facility] [employer] MEDICARE Care Teams Instructor Hairspring Relationship Specialty Start Date End Date Roney Leroy DO [address] [place] [address] PCP - General Family Medicine 12/08/22
--- OUTSIDE RECORDS SUMMARY | 2024-10-07 11:59 | XMS_ITS | Clinical Summary ---
Author Organization [facility] Address [address] [facility] [place] [address] Care Team Providers Care Used Car Manager Name Role Phone Marifer Castellanos MD Unavailable Jc Escobar DO Unavailable Chalo Leon MD Unavailable [phone] Melvin Dick DO Primary Care Provider Meir Morrissey MD Unavailable [phone] Allergies Active Allergy Reactions Criticality Noted Date Comments Hydroxychloroquine 06/28/2020 Other Reaction(s): Other: See Comments Eye changes on exam 06/2020 (unable to clarify if changes from macular degeneration) Medications albuterol HFA 90 mcg/act inhaler 05/30/2022 Act david DULoxetine (Cymbalta) [address] capsule 05/30/2022 Active meloxicam (Mobic) 15 MG tablet 01/05/2022 Active omeprazole (PriLOSEC) [address] capsule 05/30/2022 Active denosumab (Prolia) 60 MG/ML solution prefilled syringe Inject 60 mg under the skin 1 (one) time Active Multiple Vitamins-Minerals (EYE VITAMINS PO) Take by mouth Active chlorthalidone (Hygroton) 25 MG tabletIndications :Hypertension, unspecified type Take 1 tablet (25 mg) by mouth Daily 90 tablet 3 09/29/2023 Active losartan (Cozaar) 100 MG tabletIndications :Primary hypertension Take 1 tablet (100 mg) by mouth Daily 90 tablet 3 09/29/2023 Active Elderberry-Vitami n C-Zinc (Take the Interview HEALTH GUMMY PO) Take by mouth Active cholecalciferol (Vitamin D-3) 50 MCG (2000 UT) capsule Take 2,000 Units by mouth Daily Active levothyroxine (Synthroid, Levoxyl) 88 MCG tablet 12/17/2023 Active dicyclomine (Bentyl) 20 MG tablet Active Active Problems Problem Noted Date Diagnosed [...] 09 Asthma 08/23/2008 Hypothyroidism 08/23/2008 Lumbago 08/23/2008 Resolved Problems Problem Noted Date Diagnosed Date Resolved Date Microcalcification of right breast on mammogram 09/29/2023 09/29/2023 Anxiety 08/13/2022 01/28/2023 Impairment of balance 08/13/20222023 Protein calorie malnutrition ([facility]) 08/13/2022 11/30/2022 Pre-operative examination 04/14/2021 Joint stiffness of multiple sites 07/22/2017 09/29/2023 Encounters Date Type Department Care Team Description 09/29/2024 Abstract [facility] [address] [place] [address] Melvin Dick DO 09/20/2024 Telephone [facility] [address] [place] [address] Anabelle Keita, RANJIT 09/15/2024 Abstract [facility] [address] [place] [address] Radha Ibrahim, [facility] 09/12/2024 Telephone [facility] [address] [facility] [place] [address] Radha Ibarhim, [facility] Dog ate wire of hearing aid 09/11/2024 Abstract [facility] [address] [place] [address] Earl ParkMelvin mccoy, DO 09/11/2024 Abstract [facility] [address] [place] [address] Earl ParkMelvin mccoy L, DO 09/06/2024 4:15 PM EDT Office Visit [facility] [address] [place] [phone] Moses Richards, Foreign body of right ear, initial encounter 09/06/2024 Travel 08/24/2024 10:45 AM EDT [facility] Visit [facility] [address] [facility] [address] [place] [address] Jc Escobar, Personal history of malignant neoplasm of breast (Primary Dx) 08/24/2024 Travel 08/21/2024 Travel 08/16/2024 Clinisync Result Encounter [facility] External Department Unsolicited Provider, Generic External Data 08/03/2024 Travel from Last 3 Months Immunizations Immunization Administration Dates Next Due Influenza, High-dose Seasona l, Quadrivalent, Preservative Free 09/22/2019 Influenza, Injectable, MDCK, preservative free 12/19/2018,11/12/2016 Influenza, Recombinant, inje ctable, preservative free 12/19/2021 Influenza, Seasonal, Quadriv alent, Adjuvanted 12/19/2021 Influenza, Unspecified 09/25/2019,09/09/2019,07/2017 Influenza, injectable, MDCK, preservative free, quadrivalent 01/29/2023,11/12/2016 Influenza, injectable, quadrivalent 01/13/2018,1 02/15/2015 Influenza, injectable, quadr ivalent, preservative free 08/18/2021,09/25/2019,09/09/2019,12/16 Influenza, seasonal, injecta ble, preservative free 11/30/2014 Pneumococcal Conjugate PCV 13 12/31/2014 Pneumococcal Polysaccharide PPSV23 02/23/2019, Zoster, Recombinant 09/22/2019,04/10/2019 Family History Medical History Relation Name Comments Hypertension Father Parkinsonism Father Diabetes Mother Heart disease Mother Cancer Sibling Heart disease Sibling Hypertension Sibling Melanoma Sibling Osteoarthritis Sibling Diabetes Son Relation Name Status Comments Brother 6 Father Mother Sibling Alive Sister 1 Son Alive Social History Tobacco Use Types Packs/Day Years Used Date Smoking Tobacco: Never Smokeless Tobacco: Never Tobacco Cessation:Counseling Given: Yes Alcohol Use Standard Drinks/Week Comments Yes 0 [...] often do you attend chur ch or holiness services? More than 4 times per year [...] Recorded Patient Health Questionnaire-2 Score 0 03/15/2024 [facility] Occupat ional Health - Occupational Stress [...] place to sleep or slept in a mcfp (including now)? No 11/10/2022 Comments Unknown Sex and Gender Information Value Date Recorded Sex Assigned at Not on file Legal Sex Female 7:11 PM EDT Gender Identity Not on file Sexual Orientation Not on file Occupation Industry Job Start Date Job End Date retired Not on file Not on file Not on file Last Filed Vital Signs Vital Sign Reading Time Taken Comments Blood Pressure 128/64 09/06/2024 4:19 PM EDT Pulse 94 09/06/2024 4:19 PM EDT Temperature 36.4 C (97.6 F) 09/06/2024 4:19 PM EDT Respiratory Rate 18 10/18/2023 10:53 AM EDT Oxygen Saturation 98% 09/06/2024 4:19 PM EDT Inhaled Oxygen Concentration - - Weight 70.8 kg (156 lb) 08/24/2024 10:51 AM EDT Height 160 cm (5' 3 ) 08/24/2024 10:51 AM EDT Body Mass Index 27.63 08/24/2024 10:51 AM EDT Plan of Treatment Upcoming Encounters Date Type Department Care Team (Late st Contact Info) Description 11/02/2024 10:00 AM EDT Office Visit [facility] [address] [place] [phone] 08/30/2025 10:45 AM EDT [facility] Visit [facility] [address] [phone] Jc Escobar, [address] [facility] [address] [place] [address] Health Maintenance Due Date Last Done Comments Influenza Vaccine (#1) 2024 3, 12/19/2021, 12/19/2021, Additional history exists Medicare Annual Wellness (AWV) 03/15/2025 0 03/15/2024, 03/15/2024, 09/29/2023, Additional history exists Pneumococcal Vaccine: 65+ Years Completed 02/23/2019, 12/31/2014, 07/11/2009 Procedures Procedure Name Priority Date/Time Associated Diagnosis Comments [facility] 25(OH)D3 SERPL-MCNC Routine 08/16/2024 10:13 AM EDT [facility] CALCIUM SERPL-MCNC Routine 08/16/2024 10:13 AM EDT from Last 3 Months Results * [facility] CALCIUM SERPL-MCNC (08/16/2024 10:13 AM EDT) [facility] CALCIUM SERPL-MCNC 10.1 8.5 - 10.2 mg/dL [facility] 08/16/2024 10:1 3 AM EDT 08/16/2024 10:13 AM EDT Narrative CLINISYSARINA - 08/16/2024 10:53 AM EDT Specimen Type: BLOOD SPECIMEN Ordering Facility: [facility] Address: [address] [place] [address] Original Ordering Provider: CHALO LEON Generic External Data Provider CLINISYSARINA F inal Result CLINISYSARINA [facility] [address] [place] [address] * [facility] 25(OH)D3 SERPL-MCNC (08/16/2024 10:13 AM EDT) [facility] 25(OH)D3 SERPL-MCNC 45.8 31.0 - 80.0 ng/mL [facility] Comment: Classification of 25 [place] Vitamin D status: Deficiency/Insufficiency: < or = 30 ng/ml. Sufficiency/Optimal Levels: 31-80 ng/mL Toxicity: > 100 ng/mL. Test performed by chemiluminescent immunoassay. 08/16/2024 10:1 3 AM EDT 08/16/2024 3:53 PM EDT Narrative CLINISYSARINA - 08/16/2024 7:50 PM EDT Specimen Type: BLOOD SPECIMEN Ordering Facility: [facility] Address: [address] [place] [address] Original Ordering Provider: CHALO LEON Generic External Data Provider QUINTENNATYSARINA F inal Result [facility] [address] [address] from Last [address] [place] [address] [employer] MEDICARE Care Teams Used Car Manager Relationship Specialty Start Date End Date Melvin Dick DO [address] [facility] [address] [place] [address] PCP - General Family Medicine 09/29/23 Marifer Castellanos MD [address] [place] [address] Oncology 01/29/23 Jc Escobar DO [address] [address] Referring Physician General Surgery 01/29/23 Chalo Leon MD [address] [place] [address] Referring Physician Rheumatology 01/29/23 Meir Morrissey MD [address] [facility] [address] [place] [address] Referring Physician Gastroenterology 03/15/24
--- OUTSIDE RECORDS SUMMARY | 2024-10-07 11:59 | XMS_ITS | Patient Health Record ---
Author Organization [facility] Address [address] [place] [address] Care Team Providers Care Community Services Coordinator Name Role Phone RadRoney lizama Primary Care Provider MichaRamila Mendenhall Unavailable [phone] Romi Max Unavailable Allergies No Known Allergies Results Component Value Reference Range Notes Urine Culture and Sensitivit y Reviewed date:10/14/2023 11:18:52 AM Interpretation:Normal Performing Lab:QPT, [facility]-[address], [address] [place], [place] [address] Guanakito Mckenzie MD Notes/Report: 0 Received Date: CULTURE, URINE, ROUTINE SEE NOTE CULTURE, URINE, ROUTINE Micro Number: [id number] Test Status: Final Specimen Source: Urine Specimen Quality: Adequate Result: Mixed genital nola isolated. These superficial bacteria are not indicative of a urinary tract infection. No further organism identification is warranted on this specimen. If clinically indicated, recollect clean-catch, mid-stream urine and transfer immediately to Urine Culture Transport Tube. Urinalysis (IH) Reviewed date:10/11/2023 10:55:45 AM Interpretation:Abnormal Performing Lab: Notes/Report: Abnormal Blood Non-Hemolyzed neg negative - c a. 250 Teodoro/ml Urobili norm normal - 12 mg/dL Bili neg negative - large Protein neg negative - 500 mg/dL Nitrites neg negative - positive Ketone neg Ascorbic Acid ++ trace - large Glucose neg negative - > 1000 mg/dL pH 5 5.0 - 9.0 Spec. Gr. 1.005 LEUK 500 negative - ca. 5 00 Omar/ml Reason For Referral No Information Medications Medication SIG (Take, Route, Frequency, Duration) Notes Start Date End Date Status Ondansetron 4 MG 1 tablet on the tong ue and allow to dissolve Orally Every 6 hours as needed up to three times a day; Duration: 7 days 10/11/2023 Active Anastrozole 1 MG Oral; Duration: 90 Days Active Losartan Potassium 100 MG Oral; Duration: 90 Days Active Meloxicam 15 MG Oral; Duration: 90 Days Active Chlorthalidone 25 MG Oral; Duration: 90 Days Active Anastrozole 1 MG Oral; Duration: 90 Days Active prednisoLONE Acetate 1 % USE 1 DROP IN B OTH EYES ONCE DAILY. Ophthalmic; Duration: 38 Days Active Omeprazole 40 MG Oral; Duration: 90 Days Active Vitamin D (Ergocalciferol) 1.25 MG (44644 UT) Oral; Duration: 56 Days Active Levothyroxine Sodium 75 MCG Oral; Duration: 90 Days Active DULoxetine HCl 60 MG Oral; Duration: 90 Days Active Social History Tobacco Use: Social History Observation Description Date Details (start date - stop date) Former Smoker NA - NA Tobacco Control (Standard) Question Answer Notes Tobacco use: Former smoker Problems Problem Type SNOMED Code ICD Code Onset Dates Problem Status W/U Status Risk Notes Problem Irritable bowel syndrome (77323262) IBS (irritable bowel syndrome) (K58.9) Active confirmed Problem Hypothyroid (E03.9) Active confirmed Problem Hypertension (69603304) Hypertension (I10) Active confirmed Problem Arthritis (7001625) Arthritis (M19.90) Active confirmed Problem Osteoporosis (57572803) Osteoporosis (M81.0) Active confirmed Vital Signs Temperature 97.7 degrees Fahrenheit 10/11/2023 Respiratory Rate 16 /min 10/11/2023 Blood pressure diastolic 80 mm Hg 10/11/2023 Height 63 in 10/11/2023 Blood pressure systolic 140 mm Hg 10/11/2023 Weight 157 lbs 10/11/2023 BMI 27.81 kg/m2 10/11/2023 Encounters Encounter Location Date Provider Diagnosis [address] [facility] [address] [place] [address] 10/11/2023 Romi Mxa Acute cystitis without hematuria N30.00 ; Nausea R11.0 ; Hypertension I10 and Overweight (BMI 25.0-29.9) E66.3 [address] [facility] [address] [place] [address] 10/14/2023 Ramila Cuello [address] [facility] [address] [place] [address] 10/14/2023 Ramila Cuello Assessments Encounter Date Diagnosis (ICD Code) Assessment Notes Treatment Notes Treatment Clinical Notes Section Notes 10/11/2023 Nausea (ICD-10 - R11.0) 10/11/2023 Acute cystitis without hematuria (ICD-10 - N30.00) Please avoid carbonated drinks and caffeine. They can irritate the bladder. Urinate often and try to empty the bladder each time. Avoid bubble baths as these cause irritation. For women: empty bladder after sexual relations, avoid using feminine hygiene products if possible as these can cause irritation. Call your PCP or return to the clinic if symptoms do not resolve in 3-5 days. Please seek immediate care at ER/UC if worsening symptoms or new symptoms including fever, nausea, vomiting, worsening urinary symptoms, chills, body aches, increased discomfort, groin or belly pain or discomfort, or back discomfort/pain just below rib cage (flank pain). For post-menopausal women: if symptoms do not resolve, consider follow up with CV RN for evaluation of alternative causes that can mimic symptoms of UTI. Specimen will be sent to outside lab and patient will receive third democrat bill from laboratory. Patient verbalized understanding and agrees to plan of care. 10/11/2023 Hypertension (ICD-10 - I10) Regularly follow up with the healthcare provider who manages your high blood pressure. 10/11/2023 Overweight (BMI 25.0-29.9) (ICD-10 - E66.3) Continue healthy eating and exercise. May follow up with [facility] via a telehealth visit at [email or web address] [email or web address]/telenutrition to help with dietary changes to lower BMI. Plan Of Treatment No Information Insurance Providers Payer Name Payer Address Payer Phone Subscriber Number Group Number Insured Name Patient Relationship to Insured Coverage Start Date Coverage End Date [facility] [address] [place] [address] [id number] Lizz Lorenz Self - patient is the insured Medical (General) History Medical History History ICD Code IBS (irritable bowel syndrome) K58.9 Hypothyroid E03.9 Hypertension I10 Arthritis M19.90 Osteoporosis M81.0 Surgical History Surgery Date(Month/Year) back surgery left knee surgery right knee surgery x2 appy corneal transplants-bilateral right kidney surgery-stones Hospitalization History Reason Date(Month/Year) see above
--- OUTSIDE RECORDS SUMMARY | 2024-10-07 11:59 | XMS_ITS | Encounter Summary ---
Author Organization [facility] Address [address] [place] [address] Care Team Providers Care Analytical Scientist Name Role Phone Roney Leroy Jacqueline SIFUENTES Primary Care Provider [phone] Source Comments In the event this information is protected by the Federal Confidentiality of Alcohol and Drug AbusePatient Records regulations: The Federal rules restrict any use of the information to criminally investigate or prosecute any alcohol or drug abuse patient.[facility] Encounter Details Date Type Department Care Team (Late st Contact Info) Description 08/04/2024 Patient Msg Ophthalmology [address] [place] [address] Provider, [facility] Appointment Reschedule Social History Tobacco Use Types Packs/Day Years [...] is lower risk 8 08/03/2022 Data from: https://www.neighborhoodatlas.[facility]/. Last address used for calculation [address] [...] Visit Rheumatology [address] [facility] [place] [phone] Baylee Leon MD [address] [facility] [place] [address] for osteoporosis/osteoar thritis/pseudogout fu OV 6-12months./Last Prolia 09/04/24 12/28/2024 1:30 PM EST Office Visit [facility] [address] [place] [address] Cristobal Shields MD [address] [place] [address] Diagnostics, [facility] [address] [address] *12 W, DFE/OCT/OPTOS/FAF, AVASTIN OU 04/19/2025 9:15 AM EDT Office Visit [facility] [address] [address] Nic Santos MD [address] [place] [address] [facility] [address] [address] Corneal Transplant yearly documented as of this encounter Visit Diagnoses Not on filedocumented in this encounter Care Teams Analytical Scientist Relationship Specialty Start Date End Date Roney Leroy DO [address] [place] [address] PCP - General 05/19/00 documented as of this encounter
--- OUTSIDE RECORDS SUMMARY | 2024-10-07 11:59 | XMS_ITS | Encounter Summary ---
Author Organization [facility] Address [address] [facility] [place] [address] Care Team Providers Care Paste Mixer Liquid Name Role Phone Marifer Castellanos MD Unavailable Jc Escobar DO Unavailable Baylee Leon MD Unavailable [phone] Melvin Dick DO Primary Care Provider Meir Morrissey MD Unavailable [phone] Encounter Details Date Type Department Care Team (Late st Contact Info) Description 09/11/2024 Abstract [facility] [address] [facility] [address] [place] [phone] Melvin Dick DO [address] [facility] [address] [place] [address] Social History Tobacco Use Types [...] How often do you attend chur or religion services? More than 4 times per year 11/10/2022 Do you belong to any clubs o r organizations such as rastafari groups, unions, fraternal or athletic groups, or [...] Recorded Patient Health Questionnaire-2 Score 0 03/15/2024 [facility] [place] of Occupat ional Health - Occupational Stress [...] place to sleep or slept in a fci (including now)? No 11/10/2022 Comments Unknown Sex [...] Audiology [address] [facility] [address] [phone] 08/30/2025 10:45 AM EDT Office Visit [facility] [address] [facility] [address] [place] [address] Jc Escobar, DO [address]03 [facility] [address] [place] [address] documented as of this encounter Visit Diagnoses Not on filedocumented in this encounter Additional Health Concerns Assessment Noted Time PHQ-9 Depression Total Score: 0 03/15/19 25 1:00 PM EST documented as of this encounter Care Teams Paste Mixer Liquid Relationship Specialty Start Date End Date Melvin Dick DO [address] [facility] [address] [place] [address] PCP - General Family Medicine 09/29/23 Marifer Castellanos MD [address] [place] [address] Oncology 01/29/23 Jc Escobar DO [address] [facility] [address] [place] [address] Referring Physician General Surgery 01/29/23 Baylee Leon MD [address] [facility] [place] [address] Referring Physician Rheumatology 01/29/23 Meir Morrissey MD [address] [facility] [address] [place] [address] Referring Physician Gastroenterology 03/15/24 documented as of this encounter
--- OUTSIDE RECORDS SUMMARY | 2024-10-07 11:59 | XMS_ITS | Encounter Summary ---
Author Organization [facility] Address [facility] [place] [address] Care Team Providers Care Roller Skater Name Role Phone Roney Leroy Primary Care Provider [phone] Source Comments In the event this information is protected by the Federal Confidentiality of Alcohol and Drug AbusePatient Records regulations: The Federal rules restrict any use of the information to criminally investigate or prosecute any alcohol or drug abuse patient.[facility] Encounter Details Date Type Department Care Team (Late st Contact Info) Description 08/30/2024 Patient [facility] -[address] [place] [address] Yaneth oYon RPh At your next appointment, choose [facility]. Social History Tobacco Use Types Packs/Day [...] is lower risk 8 08/03/2022 Data from: https://www.neighborhoodatlas.[facility]/. Last address used for calculation [address] [...] EDT Office Visit Rheumatology [address] [facility] [place] [address] Baylee Leon MD [address] [facility] [place] [address] for osteoporosis/osteoar thritis/pseudogout fu OV 6-12months./Last Prolia 09/04/24 12/28/2024 1:30 PM EST Office Visit [facility] Ophthalmology 5700 [place] [address] Cristobal Shields MD 8470 [place] [address] Diagnostics, [facility] [address] [address] *12 W, DFE/OCT/OPTOS/FAF, AVASTIN OU 04/19/2025 9:15 AM EDT Office Visit [facility] Ophthalmology [address] [address] Nic Santos MD 8123 [place] [address] Diagnostics[facility] [address] [address] Corneal Transplant yearly documented as of this encounter Visit Diagnoses Not on filedocumented in this encounter Care Teams Roller Skater Relationship Specialty Start Date End Date Roney Leroy DO [address] [address] PCP - General 05/19/00 documented as of this encounter
--- OUTSIDE RECORDS SUMMARY | 2024-10-07 11:59 | XMS_ITS | Encounter Summary ---
Author Organization [facility] Address [address] [facility] [place] [address] Care Team Providers Care Radio Despatcher Name Role Phone Marifer Castellanos MD Unavailable Jc Escobar DO Unavailable Baylee Leon MD Unavailable [phone] Melvin Dick DO Primary Care Provider Meir Morrissey MD Unavailable [phone] Encounter Details Date Type Department Care Team (Late st Contact Info) Description 10/12/2023 [facility] [address] [facility] [address] [place] [address] Melvin Dick DO [address] [facility] [address] [place] [address] Social History Tobacco Use Types [...] How often do you attend chur or yazidi services? More than 4 times per year 11/10/2022 Do you belong to any clubs o r organizations such as christianity groups, unions, fraternal or athletic groups, or [...] Recorded Patient Health Questionnaire-2 Score 0 09/29/2023 [facility] [place] of Occupat ional Health - Occupational Stress [...] place to sleep or slept in a halfway (including now)? No 11/10/2022 Comments Unknown Sex [...] [facility] [address] [facility] [address] [phone] 08/30/2025 10:45 AM EDT Office Visit [facility] [address] [facility] 150 [place] [address] Jc Escobar, DO 703 [facility] 150 [place] [address] documented as of this encounter Visit Diagnoses Not on filedocumented in this encounter Additional Health Concerns Assessment Noted Time PHQ-9 Depression Total Score: 0 09/29/19 10:41 AM EDT documented as of this encounter Care Teams Radio Despatcher Relationship Specialty Start Date End Date Melvin Dick DO [address] [facility] [address] [place] [address] PCP - General Family Medicine 09/29/23 Marifer Castellanos MD [address] [place] [address] Oncology 01/29/23 Jc Escobar DO 703 [facility] 150 [place] [address] Referring Physician General Surgery 01/29/23 Baylee Leon MD 5700 [facility] [place] [address] Referring Physician Rheumatology 01/29/23 Meir Morrissey MD [address] [facility] 230 [place] [address] Referring Physician Gastroenterology 03/15/24 documented as of this encounter
--- OUTSIDE RECORDS SUMMARY | 2024-10-07 11:59 | XMS_ITS | Encounter Summary ---
Author Organization [facility] Address [address] [place] [address] Phone Care Team Providers Care Health And Wellness Coordinator Name Role Phone Roney Leroy DO Primary Care Provider [phone] Encounter Details Date Type Department Care Team (Late st Contact Info) Description 11/16/2022 Scanned Document [facility] [address] [place] [id number] Scanning, Generic Provider Social History Tobacco Use Types Packs/Day Years Used Date Smoking Tobacco: Never Assessed Comments Unknown Sex and Gender Information Value Date Recorded Sex Assigned at Not on file Legal Sex Female 9:55 PM EST Gender Identity Not on file Sexual Orientation Not on file documented as of this encounter Plan of Treatment Not on file documented as of this encounter Visit Diagnoses Not on filedocumented in this encounter Care Teams Health And Wellness Coordinator Relationship Specialty Start Date End Date Roney Leroy DO [address] [place] [address] PCP - General Family Medicine 12/08/22 documented as of this encounter
--- OUTSIDE RECORDS SUMMARY | 2024-10-07 11:59 | XMS_ITS | Encounter Summary ---
Author Organization [facility] Address [address] [facility] [place] [address] Care Team Providers Care Engineering Coordinator Name Role Phone Marifer Castellanos MD Unavailable Jc Escobar DO Unavailable [phone] Baylee Leon MD Unavailable [phone] Melvin Dick DO Primary Care Provider Meir Morrissey MD Unavailable [phone] Encounter Details Date Type Department Care Team (Late st Contact Info) Description 09/29/2024 Abstract [facility] 230 [address] [facility] [address] [place] [address] Melvin Dick DO [address] [facility] [address] [place] [address] Social History Tobacco Use Types [...] How often do you attend chur or jewish services? More than 4 times per year 11/10/2022 Do you belong to any clubs o r organizations such as adventism groups, unions, fraternal or athletic groups, or [...] Recorded Patient Health Questionnaire-2 Score 0 03/15/2024 [facility] [place] of Occupat ional Health - Occupational Stress [...] [facility] [address] [facility] [place] [address] [phone] 08/30/2025 10:45 AM EDT [facility] [address] [facility] 150 [place] [address] Jc Escobar, DO 703 [facility] 150 [place] [address] documented as of this encounter Visit Diagnoses Not on filedocumented in this encounter Additional Health Concerns Assessment Noted Time PHQ-9 Depression Total Score: 0 03/15/19 25 1:00 PM EST documented as of this encounter Care Teams Engineering Coordinator Relationship Specialty Start Date End Date Melvin Dick DO [address] [facility] [address] [place] [address] PCP - General Family Medicine 09/29/23 Marifer Castellanos MD 701 [place] [address] Oncology 01/29/23 Jc Escobar DO 703 [facility] 150 [place] [address] Referring Physician General Surgery 01/29/23 Baylee Leon MD 5700 [facility] [place] [address] Referring Physician Rheumatology 01/29/23 Meir Morrissey MD [address] [facility] 230 [place] [address] Referring Physician Gastroenterology 03/15/24 documented as of this encounter
--- OUTSIDE RECORDS SUMMARY | 2024-10-07 11:59 | XMS_ITS | Encounter Summary ---
Author Organization [facility] Address [address] [facility] [place] [address] Care Team Providers Care Health Services Information Specialist Name Role Phone Marifer Castellanos MD Unavailable Jc Escobar DO Unavailable [phone] Baylee Leon MD Unavailable [phone] Melvin Dick DO Primary Care Provider Meir Morrissey MD Unavailable [phone] Encounter Details Date Type Department Care Team (Late st Contact Info) Description 11/03/2023 [facility] 230 [address] [facility] [address] 230 [place] [address] Melvin Dick DO [address] [facility] [address] [place] [address] Social History Tobacco Use Types [...] How often do you attend chur or adventist services? More than 4 times per year [...] Recorded Patient Health Questionnaire-2 Score 0 09/29/2023 [facility] [place] of Occupat ional Health - Occupational Stress [...] place to sleep or slept in a long-term (including now)? No 11/10/2022 Comments Unknown Sex [...] [facility] [address] [facility] [place] [phone] [phone] 08/30/2025 10:45 AM EDT [facility] 703 [facility] 150 [place] [address] Jc Escobar, DO 703 [facility] 150 [place] [address] documented as of this encounter Visit Diagnoses Not on filedocumented in this encounter Additional Health Concerns Assessment Noted Time PHQ-9 Depression Total Score: 0 09/29/19 10:41 AM EDT documented as of this encounter Care Teams Health Services Information Specialist Relationship Specialty Start Date End Date Melvin Dick DO [address] [facility] [address] [place] [address] PCP - General Family Medicine 09/29/23 Marifer Castellanos MD 701 [place] [address] Oncology 01/29/23 Jc Escobar DO 703 [facility] 150 [place] [address] Referring Physician General Surgery 01/29/23 Baylee Leon MD 5700 [facility] [place] [address] Referring Physician Rheumatology 01/29/23 Meir Morrissey MD [address] [facility] 230 [place] [address] Referring Physician Gastroenterology 03/15/24 documented as of this encounter
--- OUTSIDE RECORDS SUMMARY | 2024-10-07 11:59 | XMS_ITS | Encounter Summary ---
Author Organization [facility] Address [address] [facility] [place] [address] Care Team Providers Care Factory Manager Name Role Phone Roney Leroy DO Primary Care Provider [phone] Marifer Castellanos MD Unavailable Jc Escobar DO Unavailable [phone] Baylee Leon MD Unavailable [phone] Melvin Dick DO Primary Care Provider [phone] Meir Morrissey MD Unavailable [phone] Encounter Details Date Type Department Care Team (Late st Contact Info) Description 09/14/2023 Abstract [facility] 230 [address] [facility] [address] 230 [place] [address] Roney Leroy DO [address] [facility] [address] 230 [place] [address] Social History Tobacco Use Types Packs/Day Years [...] How often do you attend chur or methodist services? More than 4 times per year 11/10/2022 Do you belong to any clubs o r organizations such as voodoo groups, unions, fraternal or athletic groups, or [...] Recorded Patient Health Questionnaire-2 Score 0 01/29/2023 [facility] of Occupat ional Health - [...] place to sleep or slept in a custodial (including now)? No 11/10/2022 Comments Unknown Sex [...] Visit [facility] [address] [facility] [place] [address] 08/30/2025 10:45 AM EDT [facility] [address] [address] Jc Escobar DO [address] [place] [address] documented as of this encounter Visit Diagnoses Not on filedocumented in this encounter Additional Health Concerns Assessment Noted Time PHQ-9 Depression Total Score: 0 01/30/20 23 10:57 AM EST documented as of this encounter Care Teams Factory Manager Relationship Specialty Start Date End Date Roney Leroy DO [address] [facility] [address] [place] [address] PCP - General Family Medicine 08/04/22 09/28/23 Melvin Dick DO [address] [facility] 230 [place] [address] PCP - General Family Medicine 09/29/23 Marifer Castellanos MD 701 [place] [address] Oncology 01/29/23 Jc Escobar DO [address] [address] Referring Physician General Surgery 01/29/23 Baylee Leon MD 5700 [facility] [place] [address] Referring Physician Rheumatology 01/29/23 Meir Morrissey MD [address] [facility] 230 [place] [address] Referring Physician Gastroenterology 03/15/24 documented as of this encounter
--- NOTE | 2024-10-07 12:00 | ECG_ITS ---
[facility] Test Date: 2024-10-07 Pat Name: FANTASMA LEWIS Department: Room: - Gender: Female Systems Coordinator: : 1940 Requested By: [id number] Order Number: [id number] Reading MD: RODNEY CARRINGTON Measurements Intervals [place] Rate: 91 P: 50 RI: 136 QRS: 31 QRSD: 84 T: 54 QT: 322 QTc: 371 Interpretive Statements 1100 Sinus rhythm 8102 Low QRS voltage in chest leads 9120 atypical ECG Compared to ECG 10/20/2022 09:17:31 Low QRS voltage now present Electronically Signed On 10-11-2024 13:30:23 EDT by RODNEY CARRINGTON
--- NOTE | 2024-10-07 12:00 | CT_ITS ---
The [address] [address] Patient Name: FANTASMA LEWIS MRN: [id number] date: 1940 Sex: F Assigned Patient Location: ER Current Patient Location: ER Accession/Order Number: [id number] Exam Date: 10/07/2024 12:07 Report Date: 10/07/2024 12:30 At the request of: AGATA RAMIREZ MD Procedure: CT stroke head/brain wo con CT stroke head/brain wo con 10/07/2024 12:13 PM SIGNS AND SYMPTOMS: Blurred vision, diplopia, pressure behind left eye TECHNIQUE:Multi-detector CT axial slices of the brain were obtained without IV contrast. CT was performed with one or more of the following dose reduction techniques: Automated exposure control, adjustment of the mA and/or kV according to patient size, or use of iterative reconstruction technique. COMPARISON: 10/23/2022 FINDINGS: There is no shift of the midline structures, acute intracranial bleeding, mass effects, or evidence of acute ischemia. Is mild age-related cortical atrophy. Periventricular white matter hypoattenuation. Atherosclerotic changes are noted in the intracranial segments of the internal carotid arteries. The ventricular system is normal in size. The brainstem and the cerebellum are unremarkable. The visualized intraorbital contents, the visualized paranasal sinuses, and the infratemporal soft tissues show no acute abnormality. The osseous structures in the skull base and the calvarium show no abnormality. There is frontal hyperostosis. CT/CT stroke head/brain wo con IMPRESSION: No acute intracranial pathology. Chronic age-related neurodegenerative changes are noted as above. Impression dictated by: Donald Parry M.D. 10/07/2024 12:30 PM Dictation Location: [place] [address] Electronically authenticated by: [id number] Y Date: 10/07/2024 12:30
--- OUTSIDE RECORDS SUMMARY | 2024-10-07 12:00 | XMS_ITS | Encounter Summary ---
Author Organization [facility] Address [address] [facility] [place] [address] Care Team Providers Care Comprehensive Ophthalmologist Name Role Phone Roney Leroy DO Primary Care Provider [phone] Marifer Castellanos MD Unavailable Jc Escobar DO Unavailable [phone] Baylee Leon MD Unavailable [phone] Melvin Dick DO Primary Care Provider [phone] Meir Morrissey MD Unavailable [phone] Encounter Details Date Type Department Care Team (Late st Contact Info) Description 11/12/2022 Abstract [facility] 230 [address] [facility] [address] 230 [place] [address] Roney Leroy, [address] [facility] [address] 230 [place] [address] Social History Tobacco Use Types Packs/Day Years [...] How often do you attend chur or jehovah's witness services? More than 4 times per year 11/10/2022 Do you belong to any clubs o r organizations such as holiness groups, unions, fraternal or athletic groups, or [...] Recorded Patient Health Questionnaire-2 Score 0 11/11/2022 [facility] [place] of Occupat ional Health - Occupational Stress [...] place to sleep or slept in a long term (including now)? No 11/10/2022 Comments Unknown Sex [...] Visit [facility] [address] [facility] [address] 08/30/2025 10:45 AM EDT [facility] Visit [facility] [address] [phone] Jc Escobar DO [address] [place] [address] documented as of this encounter Visit Diagnoses Not on filedocumented in this encounter Care Teams Comprehensive Ophthalmologist Relationship Specialty Start Date End Date Roney Leroy DO [address] [facility] 230 [place] [address] PCP - General Family Medicine 08/04/22 09/28/23 Melvin Dick DO [address] [facility] 230 [place] [address] PCP - General Family Medicine 09/29/23 Marifer Castellanos MD 701 [place] [address] Oncology 01/29/23 Jc Escobar DO [address] [address] Referring Physician General Surgery 01/29/23 Baylee Leon MD [address] [facility] [place] [address] Referring Physician Rheumatology 01/29/23 Meir Morrissey MD [address] [facility] 230 [place] [address] Referring Physician Gastroenterology 03/15/24 documented as of this encounter
--- OUTSIDE RECORDS SUMMARY | 2024-10-07 12:00 | XMS_ITS | Encounter Summary ---
Author Organization [facility] Address [address] [facility] [place] [address] Care Team Providers Care Iron Cutter Name Role Phone Roney Lubin DO Primary Care Provider [phone] Mraifer Castellanos MD Unavailable Jc Escobar DO Unavailable [phone] Baylee Leon MD Unavailable [phone] Melvin Dick DO Primary Care Provider [phone] Meir Morrissey MD Unavailable [phone] Encounter Details Date Type Department Care Team (Late st Contact Info) Description 11/13/2022 Clinisync Result Encounter [facility] External Department Unsolicited Provider, Generic External Data Social History Tobacco Use Types Packs/Day Years [...] How often do you attend chur or denominational services? More than 4 times per year 11/10/2022 Do you belong to any clubs o r organizations such as religious groups, unions, fraternal or athletic groups, or [...] Recorded Patient Health Questionnaire-2 Score 0 11/11/2022 [facility] of Occupat ional Health - Occupational [...] Office Visit [facility] [address] [facility] [place] [phone] 08/30/2025 10:45 AM EDT [facility] 703 [facility] 150 [place] [address] Jc Escobar DO [address] [place] [address] documented as of this encounter Procedures Procedure Name Priority Date/Time Associated Diagnosis Comments XR ABDOMEN 1V 11/13/2022 7:30 AM EDT documented in this encounter Results * XR ABDOMEN 1V (11/13/2022 7:30 AM EDT) Anatomical Region Laterality Modality Other 11/13/2022 7:30 AM EDT Narrative 11/13/2022 7:30 AM EDT [address] [address] XRay Report Signed Patient: LIZZ LORENZ MR#: [id number] : 1940 Acct:[id number] Age/Sex: 82 / F ADM Date: 11/13/22 Loc: RAD Attending Dr: Jasmeet Horner M.D. Ordering Physician: Jasmeet Horner M.D. Date of Service: 11/13/22 Procedure(s): XR abdomen 1V Accession Number(s): [id number] cc: RONEY LUBIN ; Jasmeet Horner M.D. [address] [address] Patient Name: LIZZ LORENZ MRN: [id number] date: 1940 Sex: F Assigned Patient Location: [facility] Current Patient Location: [facility] Accession/Order Number: [id number] Exam Date: 11/13/2022 07:15 Report Date: 11/13/2022 07:30 At the request of: JASMEET HORNER Procedure: XR abdomen 1V EXAMINATION: XR abdomen 1V HISTORY: Kidney Stones N20.0 COMPARISON: No relevant comparison available. FINDINGS: KIDNEY/URETER - RIGHT: No visible renal or ureteral calcifications. KIDNEY/URETER - LEFT: No visible renal or ureteral calcifications. PELVIS: No visible ureteral calcifications. Any visible calcifications favor phleboliths. BOWEL: No abnormal dilation or deviation. BONES: No acute abnormality. 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 No abnormal gaseous collections. XR/XR abdomen 1V IMPRESSION: No definite urinary tract calculi Electronically authenticated by: AUNDREA IVERSON Date: 11/13/2022 07:30 Dictated By: Aundrea Iverson M.D. Signed By: 11/13/22732 DD/ 9 TD/TT: Tax Assessor: Procedure Note Radiology, Radiologist, - 11/13/2022 [place] [address] XRay Report Signed Patient: LIZZ LORENZ R#: [id number] : 1940cct:[id number] Age/Sex: 82 / FADM Date: 11/13/22 Loc: RAD Attending Dr: Jasmeet Horner M.D. Ordering Physician: Jasmeet Horner M.D. Date of Service: 11/13/22 Procedure(s): XR abdomen 1V Accession Number(s): [id number] cc: RONEY LUBIN ; Jasmeet Horner M.D. The [place] [address] Patient Name: LIZZ LORENZ MRN: [id number] date: 1940 Sex: F Assigned Patient Location: [facility] Current Patient Location: [facility] Accession/Order Number: [id number] Exam Date: 11/13/2022 07:15 Report Date: 11/13/2022 07:30 At the request of: JASMEET HORNER Procedure: XR abdomen 1V EXAMINATION: XR abdomen 1V HISTORY: Kidney Stones N20.0 COMPARISON: No relevant comparison available. FINDINGS: KIDNEY/URETER - RIGHT: No visible renal or ureteral calcifications. KIDNEY/URETER - LEFT: No visible renal or ureteral calcifications. PELVIS: No visible ureteral calcifications. Any visible calcificationsfavor phleboliths. BOWEL: No abnormal dilation or deviation. BONES: No acute abnormality. 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 No abnormal gaseous collections. XR/XR abdomen 1V IMPRESSION: No definite urinary tract calculi Electronically authenticated by: AUNDREA IVERSON Date: 11/13/2022 07:30 Dictated By: Aundrea Iverson M.D. Signed By:11/13/2233 DD/ TD/TT: Tax Assessor: Generic External Data Provider [facility] Final Result documented in this encounter Visit Diagnoses Not on filedocumented in this encounter Care Teams Iron Cutter Relationship Specialty Start Date End Date Roney Lubin DO [address] [facility] 230 [place] [address] PCP - General Family Medicine 08/04/22 09/28/23 Melvin Dick DO [address] [facility] 230 [place] [address] PCP - General Family Medicine 09/29/23 Marifer Castellanos MD 701 [place] [address] Oncology 01/29/23 Jc Escobar DO 703 [facility] 150 [place] [address] Referring Physician General Surgery 01/29/23 Baylee Leon MD [address]00 [facility] [place] [address] Referring Physician Rheumatology 01/29/23 Meir Morrissey MD [address] [facility] 230 [place] [address] Referring Physician Gastroenterology 03/15/24 documented as of this encounter
--- OUTSIDE RECORDS SUMMARY | 2024-10-07 12:00 | XMS_ITS | Encounter Summary ---
Author Organization [facility] Address [address] [facility] [place] [address] Care Team Providers Care Animal Shelter Clerk Name Role Phone Roney Leroy DO Primary Care Provider [phone] Marifer Castellanos MD Unavailable Jc Escobar DO Unavailable [phone] Baylee Leon MD Unavailable [phone] Melvin Dick DO Primary Care Provider [phone] Meir Morrissey MD Unavailable [phone] Encounter Details Date Type Department Care Team (Late st Contact Info) Description 11/12/2022 Abstract [facility] [facility] 230 [address] [facility] [address] 230 [place] [address] Roney Leroy, [address] [facility] [address] [place] [address] Social History Tobacco Use Types Packs/Day Years [...] How often do you attend chur or gnosticist services? More than 4 times per year 11/10/2022 Do you belong to any clubs o r organizations such as evangelical groups, unions, fraternal or athletic groups, or [...] Recorded Patient Health Questionnaire-2 Score 0 11/11/2022 [facility] [place] of Occupat ional Health - Occupational Stress [...] place to sleep or slept in a snf (including now)? No 11/10/2022 Comments Unknown Sex [...] Visit [facility] [address] [facility] [place] [address] 08/30/2025 10:45 AM EDT [facility] [address] [phone] Jc Escobar DO [address] [place] [address] documented as of this encounter Visit Diagnoses Not on filedocumented in this encounter Care Teams Animal Shelter Clerk Relationship Specialty Start Date End Date Roney Leroy DO [address] [facility] 230 [place] [address] PCP - General Family Medicine 08/04/22 09/28/23 Melvin Dick DO [address] [facility] 230 [place] [address] PCP - General Family Medicine 09/29/23 Marifer Castellanos MD 701 [facility] [place] [address] Oncology 01/29/23 Jc Escobar DO [address] [address] Referring Physician General Surgery 01/29/23 Baylee Leon MD 5700 [facility] [place] [address] Referring Physician Rheumatology 01/29/23 Meir Morrissey MD [address] [facility] 230 [place] [address] Referring Physician Gastroenterology 03/15/24 documented as of this encounter
--- OUTSIDE RECORDS SUMMARY | 2024-10-07 12:00 | XMS_ITS | Encounter Summary ---
Author Organization [facility] Address [address] [facility] [place] [address] Care Team Providers Care Filler And Trimmer Name Role Phone Roney Leroy DO Primary Care Provider [phone] Marifer Castellanos MD Unavailable Jc Escobar DO Unavailable [phone] Baylee Leon MD Unavailable [phone] Melvin Dick DO Primary Care Provider [phone] Meir Morrissey MD Unavailable [phone] Encounter Details Date Type Department Care Team (Late st Contact Info) Description 11/26/2022 Abstract [facility] [address] [facility] [address] [place] [address] Roney Leroy DO [address] [facility] [address] [place] [address] Social History Tobacco Use Types Packs/Day Years [...] How often do you attend chur or protestant services? More than 4 times per year 11/10/2022 Do you belong to any clubs o r organizations such as zoroastrianism groups, unions, fraternal or athletic groups, or [...] Patient Health Questionnaire-2 Score 0 11/11/2022 [facility] of Occupat ional Health - Occupational Stress [...] Visit [facility] [address] [facility] [place] [address] 08/30/2025 10:45 AM EDT Office Visit [facility] [address] [phone] Jc Escobar DO [address] [place] [address] documented as of this encounter Visit Diagnoses Not on filedocumented in this encounter Care Teams Filler And Trimmer Relationship Specialty Start Date End Date Roney Leroy DO [address] [facility] [address] [place] [address] PCP - General Family Medicine 08/04/22 09/28/23 Melvin Dick DO [address] [facility] [address] [place] [address] PCP - General Family Medicine 09/29/23 Marifer Castellanos MD [address] [place] [address] Oncology 01/29/23 Jc Escobar DO [address] [address] Referring Physician General Surgery 01/29/23 Baylee Leon MD [address] [facility] [place] [address] Referring Physician Rheumatology 01/29/23 Meir Morrissey MD [address] [facility] [address] [place] [address] Referring Physician Gastroenterology 03/15/24 documented as of this encounter
--- OUTSIDE RECORDS SUMMARY | 2024-10-07 12:00 | XMS_ITS | Encounter Summary ---
Author Organization [facility] Address [address] [facility] [place] [address] Care Team Providers Care Measurement And Verification Engineer Name Role Phone Roney Leroy DO Primary Care Provider [phone] Marifer Castellanos MD Unavailable Jc Escobar DO Unavailable [phone] Baylee Leon MD Unavailable [phone] Melvin Dick DO Primary Care Provider [phone] Meir Morrissey MD Unavailable [phone] Encounter Details Date Type Department Care Team (Late st Contact Info) Description 03/16/2023 External Result Encounter [facility] External Department Unsolicited Melvin Dick DO [address] [address] Social History Tobacco Use Types Packs/Day Years [...] How often do you attend chur or restoration services? More than 4 times per year [...] Recorded Patient Health Questionnaire-2 Score 0 01/29/2023 [facility] [place] of Occupat ional Health - Occupational Stress [...] place to sleep or slept in a fpc (including now)? No 11/10/2022 Comments Unknown Sex [...] Visit [facility] [address] [facility] [place] [address] 08/30/2025 10:45 AM EDT Office Visit [facility] [address] [facility] [address] [place] [phone] Jc Escobar DO [address] [facility] [address] [place] [address] documented as of this encounter Procedures Procedure Name Priority Date/Time Associated Diagnosis Comments STRESS TEST WITH MYOCARDIAL PERFUSION 03/16/2023 7:09 PM EST documented in this encounter Results * Stress test with myocardial perfusion (03/16/2023 7:09 PM EST) Anatomical Region Laterality Modality Heart Other 03/16/2023 7:09 PM EST Narrative 03/17/2023 5:27 PM EST [facility] [place] [address] Nuclear Medicine Report Signed Patient: Lizz Lorenz MR#: [id number] : 1940 Acct:[id number] Age/Sex: 83 / F ADM Date: 03/16/23 Loc: [place] Room: Type: [employer] Attending Dr: Melvin Dick DO Copies to: MD Melvin Gtz DO Ordering Provider: Melvin Dick DO Date of Service: 03/16/23 NM/NM kathleen perf SPECT rest str: R07.89 REFERRING PHYSICIAN: Melvin Dick DO REASON FOR STUDY: Shortness of [...] 0640 Dictated By: Girish Presley MD 03/16/23 1908 Signed By: <Electronically signed by MD Girish Presley> 03/17/23 7217 Procedure Note Girish Presley MD - 03/17/2023 [facility] [address] [place] [address] [place], [place] [id number] Nuclear Medicine Report Signed Patient: Lizz Lorenz JMR#: [id number] : 3Acct:[id number] Age/Sex: 83 / FADM Date: 03/16/23 Loc: [place] Room:Type: [employer] Attending Dr: Melvin Dick DO Copies to: MD Melvin Gtz DO Ordering Provider: Melvin Dick DO Date of Service: 03/16/23 NM/NM kathleen perf SPECT rest str: R07.89 REFERRING PHYSICIAN: Melvin Dick DO REASON FOR STUDY: Shortness of breath. PROCEDURE: The patient underwent a 1-day rest/stress protocol. Restimages obtained by injecting 6.5 mCi of Cardiolite. Stress images obtained by injecting 18.7 mCi ofCardiolite. Subsequently, gated SPECT and ejection fraction studies were performed. IMAGING RESULT: This appears to be a fair study. There is no clearpattern of ischemia or myocardial infarction. Left ventricular ejection fraction appears normal,calculated at 52%. TID index normal at 1.12. CONCLUSION: 1. No clear pattern of ischemia or myocardial infarction. 2. Normal left ventricular systolic function and wall motion. 3. No previous study available for comparison. Transcribed By: NTS 03/17/23 0640 Dictated By: Girish Presley MD 03/16/23 1909 Signed By: <Electronically signed by MD Girish Presley> 03/17/23 1727 us Melvin Dick DO CV STRESS PROCEDURES Final R esult documented in this encounter Visit Diagnoses Not on filedocumented in this encounter Additional Health Concerns Assessment Noted Time PHQ-9 Depression Total Score: 0 01/30/20 10:57 AM EST documented as of this encounter Care Teams Measurement And Verification Engineer Relationship Specialty Start Date End Date Roney Leroy DO [address] [place] [phone] PCP - General Family Medicine 08/04/22 09/28/23 Melvin Dick, DO [address] [facility] [address] [place] [address] PCP - General Family Medicine 09/29/23 Marifer Castellanos MD [address] [place] [address] Oncology 01/29/23 Jc Escobar DO [address] [facility] [address] [place] [address] Referring Physician General Surgery 01/29/23 Baylee Leon MD [address]00 [place] [address] Referring Physician Rheumatology 01/29/23 Meir Morrissey MD [address] [facility] [address] [place] [address] Referring Physician Gastroenterology 03/15/24 documented as of this encounter
--- OUTSIDE RECORDS SUMMARY | 2024-10-07 12:00 | XMS_ITS | CCD ---
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 Role Phone Roney Leroy Primary Care Provider UnavailPooja England Attending Provider Unavailable Afshin Leroy Attending Provider Unavailable Roney Leroy DO Primary Care Provider Meir Morrissey Unavailable Roney Leroy DO Primary Care Provider RONEY LEROY Primary Care Physician Isiah Alvares Consulting Unavailable SCOTT COLVIN Attending Unavailable SCOTT COLVIN Admitting Unavailable RAD, DR CHAMBERLAIN Primary Care Unavailable MARC, WARREN Consulting Unavailable SCOTT COLVIN Consulting Unavailable TASHI ESCOBAR Consulting Unavailable EVENS, DR NOE Bailey Admitting Unavailable EVENS, DR NOE Bailey Attending Unavailable EVENS, DR NOE Bailey Consulting Unavailable RAD, DR CHAMBERLAIN Primary Care Unavailable ZAYRA, DR AUNDREA Thibodeaux Consulting Unavailable SCOTT COLVIN Admitting Unavailable RAD, DR CHAMBERLAIN Primary Care Unavailable ZAYRA, DR AUNDREA Thibodeaux Consulting Unavailable SCOTT COLVIN Attending Unavailable CRISSY AMBRIZ Consulting Unavailable Roney Leroy DO Primary Care Provider Roney Leroy DO Primary Care Provider AFSHIN ROCHA Attending Unavailable RONEY LEROY Primary Care Unavailable Roney Leroy DO Primary Care Provider Emanuel AGUAYO, Marifer Gauthier Unavailable Gunner Hidalgo DO Unavailable Chalo Menjivar MD Unavailable Roney Leroy DO Primary Care Provider DO Roney Leroy Primary Care Provider DO Gunner Hidalgo Referring Provider CANDY Siddiqui Attending Provider Mounika Dick DO Primary Care Provider Meir Morrissey MD Unavailable Silvia Bianchi Attending Unavailable Noe LOZA Admitting Unavailable Noe LOZA Attending Unavailable Roney Leroy DO Primary Care Provider [phone] Gunner Hidalgo DO Referring Provider [phone] Elsa Siddiqui APRN Attending Provider Sade Garcia APRN Attending Provider Meir Morrissey MD Unavailable Roney Leroy DO Primary Care Provider MOUNIKA DICK Attending Unavailable MAYELIN, MOUNIKA L Referring Unavailable MOUNIKA DICK Attending Unavailable CAROLYNE KLINE Attending Unavailable RONEY LEROY Attending Unavailable GUNNER HIDALGO Attending Unavailable ANABELLE KEITA Attending Unavailable MOUNIKA DICK Attending Unavailable RONEY LEROY Referring Unavailable SADE OLIVAS Attending Unavailable RONEY LEROY Referring Unavailable JAH SUTHERLAND Attending Unavailable HANG WHEELER Attending Unavailable MOUNIKA DICK Attending Unavailable MOSES RICHARDS Attending Unavailable JAH SUTHERLAND Attending Unavailable HANG WHEELER Attending Unavailable MOUNIKA DICK Attending Unavailable SAGAR DICKOTHY L Referring Unavailable Roney Leroy DO Primary Care Provider Rodrigo FANG, Esme Hernandez Attending Provider Gunner Hidalgo DO Referring Provider [phone] Elsa Siddiqui APRN Attending Provider Elsa Siddiqui Attending Unavail able Gunner Hidalgo Referring Unavailable Roney Leroy Primary Care Unavailable Elsa Siddiqui Admitting Unavail able MAMMMartín, BRANDO A Attending Unavailable HUNG, BRANDO A Referring Unavailable RONEY LEROY Primary Care Unavailable RONEY LEROY Primary Care Unavailable CHALO MENJIVAR Referring Unavailable RNOEY LEROY Primary Care Unavailable OTTOCHALO Castillo Referring Unavailable RONEY LEROY Primary Care Unavailable MAMMO, BRANDO A Attending Unavailable MAMMO, BRANDO A Referring Unavailable RONEY LEROY Primary Care Unavailable NIC ANDERSON Attending Unavailable SELF Referring Unavailable MAMMO, BRANDO A Attending Unavailable MAMMO, BRANDO A Referring Unavailable RONEY LEROY Primary Care Unavailable RONEY LEROY Primary Care Unavailable OTTOCHALO Referring Unavailable RONEY LEROY Primary Care Unavailable MAMMO, BRANDO A Referring Unavailable JOSEJESSICA Attending Unavailable RONEY LEROY Primary Care Unavailable DAVID TOMLIN Attending Unavaila ble RONEY LEROY Primary Care Unavailable MAMMO, BRANDO A Attending Unavailable MAMMO, BRANDO A Referring Unavailable RONEY LEROY Primary Care Unavailable MAMMO, BRANDO A Referring Unavailable MAMMO, BRANDO A Attending Unavailable RONEY LEROY Primary Care Unavailable OTTO, CHALO Attending Unavailable RONEY LEROY Primary Care Unavailable OTTO, CHALO Referring Unavailable Unavailable Unavailable Unavailable Allergies Allergy Classification Reported Allergen(s) Allergy Type Date of Onset Reaction(s) Facility (20 sources) Hydroxychloroqui ne; Translations: [HYDROXYCHLOROQU INE] Drug Allergy 06-28-2020 Other: See Comments [facility] Work Phone: Medications Current Medications Medication Drug Class(es) Dates Sig (Normalized) Sig (Original) acetaminophen 500 mg oral tablet (20 sources) Start: 03-17-2016 take 2 tablets by mouth three times daily acetaminophen (TYLENOL) 500 mg tablet Take 2 tablets by mouth three times daily. 03/17/2016 Active Start: 03-17-2016 take 2 tablets by mo [facility] every six hours as needed acetaminophen (Tylenol) 500 mg tablet Take 2 tablets (1,000 mg) by mouth every 6 hours if needed. 0 03/17/2016 Active Comment on above: Take 2 tablets by mo [facility] three times daily. [id number] 200 actuat albuterol 0.09 mg/actuat metered dose inhaler (20 sources) beta2-Adrenergic Agonist Start: 05-30-2022 albuterol HFA 90 mcg/act inhaler 05/30/2022 Active Start: 05-30-2022 albuterol 90 m cg/actuation inhaler if needed. 0 05/30/2022 Active Start: 02-16-2018 take 1 puff(s) by in halation every four to six hours Albuterol Sulfate Active 1 PUFF Inhalation EVERY 4-6 HOURS February 16, 2018 11:03am Start: 02-16-2018 End: 07-26-2018 Albuterol Sulfate 0.63 mg/3 mL Solution For Nebulization Discontinued February 16, 2018 1:00am July 26, 2018 11:29am Start: 02-16-2018 End: 04-14-2019 take 1 puff(s) by inhalation every four to six hours as needed for wheezing Albuterol Sulfate (Proair Hfa) 90 mcg/actuation Hfa Aerosol Inhaler Discontinued 1 PUFF INHALATION EVERY 4-6 HOURS as needed for Shortness Of Breath Or Wheezing February 16, 2018 1:00am April 14, 2019 [...] hours as needed for Wheezing/Shortness of Breath. amoxicillin 500 mg oral capsule (16 sources) Penicillin-class Antibacterial Start: 03-10-2023 End: 09-29-2023 amoxicillin (Amoxil) 500 MG capsule TAKE 4 CAPSULES BY MOUTH 1 HOUR PRIOR TO APPOINTMENT & 2 CAPSULES 6 HOURS AFTER 03/10/2023 09/29/2023 Discontinued Start: 08-13-2021 End: 03-03-2022 Amoxicillin 500 mg [...] 07/22/2021 Discontinued Start: 02-21-2019 End: 02-23-2019 take 1 tablet by mouth twice daily Amoxicillin 875 mg tablet Discontinued 875 MG PO Twice daily February 21, 2019 1:00am February 23, 2019 2:33pm Comment on above: TAKE 4 CAPSULES BY M OUTH 1 HOUR PRIOR TO APPOINTMENT, AND 2 CAPSULES 6 HOURS LATER four tabs one hour p rior to dental procedure and two tabs six hours after the dental procedure antiox #8/om3/dha/epa/lut/zeax (PRESERVISION AREDS 2, OMEGA-3, ORAL) (2 sources) antiox #8/om3/dha/epa/lut/ zeax (PRESERVISION AREDS 2, OMEGA-3, ORAL) Take by mouth. Active benoxinate hydrochloride 4 mg/ml / fluorescein sodium 3 mg/ml ophthalmic solution (11 sources) Diagnostic Dye Start: 10-05-2024 End: 10-05-2024 fluorescein-benoxin ate 0.3-0.4 % 1 drop (FLURESS) Start: 10-05-2024 End: 10-05-2024 1 drop, BOTH EYES, DIRECT ED, Starting on Wed10/05/24 at 1030, Until Wed10/05/24 at 2229, Administer for applanation tonometry. In the event of a Fluress shortage, administer [place]-Fluor 1 drop into both eyes as directed for applanation tonometry, OPHT CLINIC MED ORDERS Start: 04-13-2024 End: 04-13-2024 fluorescein-benoxinate 0.3-0 .4 % 1 Drop (FLURESS) Start: 04-06-2024 End: 04-06-2024 fluorescein-benoxinate 0.3-0 .4 % 1 Drop (FLURESS) Start: 01-20-2024 End: 01-20-2024 fluorescein-benoxinate 0.3-0 .4 % 1 Drop (FLURESS) Start: 01-20-2024 End: 01-20-2024 1 Drop, BOTH EYES, DIRECT ED, Starting on Ailyn 01/20/24 at 1000, Until Ailyn 01/20/24 at 2159, Administer for applanation tonometry. In the event of a Fluress shortage, administer [place]-Fluor 1 drop into both eyes as directed for applanation tonometry, OPHT CLINIC MED ORDERS Start: 11-11-2023 End: 11-11-2023 fluorescein-benoxinate 0.3-0 .4 % 1 Drop (FLURESS) Start: 06-03-2023 End: 06-03-2023 fluorescein-benoxinate 0.3-0 .4 % 1 Drop (FLURESS) Start: 04-29-2023 End: 04-29-2023 fluorescein-benoxinate 0.3-0 .4 % 1 Drop (FLURESS) Start: 01-27-2022 End: 01-28-2022 fluorescein-benoxinate 0.25- 0.4 % 1 Drop (FLURESS) Start: 05-06-2021 End: 05-06-2021 fluorescein-benoxinate 0.25- 0.4 % 1 Drop (FLURESS) chlorthalidone 25 mg oral tablet (20 sources) Thiazide-like Diuretic Start: 03-22-2023 End: 09-29-2023 take 1 tablet by mouth once daily [...] Start: 02-26-2015 take 2 tablets by mo ut once daily cholecalciferol (VITAMIN D3) 2,000 unit tablet Take 2 tablets by mouth once daily. 0 02/26/2015 Active Start: 02-26-2015 take 2 tablets by mo [facility] once daily cholecalciferol (Vitamin D-3) 50 MCG (2000 UT) tablet Take 2 tablets (4,000 Units) by mouth once daily. 0 02/26/2015 Active take 1 capsule by [facility] once daily cholecalciferol (Vitamin D-3) 50 MCG (1999 UT) capsule Take 2,000 Units by mouth Daily Active Comment on above: Take 2 tablets by [facility] once daily. Cholecalciferol (Vitamin D3) (Vitamin D3) 4,000 unit Capsule (7 sources) Start: 11-03-19 take 1 capsule by mouth once daily Cholecalciferol (Vitamin D3) (Vitamin D3) 4,000 unit Capsule Active 4000 UNIT PO Daily November 02, 2018 12:00am Complies with drug therapy Start: 11-02-2018 take 1 capsule by [facility] once daily Cholecalciferol (Vitamin D3) (Vitamin D3) 4,000 unit Capsule Active 4000 UNIT PO Daily November 02, 2018 12:00am clindamycin 10 mg/ml medicated pad (20 sources) Lincosamide Antibacterial Start: 06-18-2021 Clindamycin Phosphate 1 % APPLY TO AFFECTED AREAS TWICE DAILY FOR FLARES 06/18/2021 Active Comment on above: APPLY TO AFFECTED AR EAS TWICE DAILY FOR FLARES dexamethasone 1 mg/ml / neomycin 3.5 mg/ml / polymyxin b [id number] unt/ml ophthalmic suspension (8 sources) Aminoglycoside Antibacterial, Polymyxin-class Antibacterial, Corticosteroid Start: 02-23-2022 End: 09-29-2023 take 1 drop(s) into the eye(s) in the morning neomycin-polymyxi n-dexAMETHasone (Maxitrol) 0.1 % ophthalmic suspension 1 drop in the morning and 1 drop in the evening. 02/23/2022 09/29/2023 Discontinued Start: 02-23-2022 End: 08-31-2022 take 1 drop(s) into the eye(s) twice daily neomycin/polymyxin b/dexametha(MAXITROL 3.5 MG/ML-10,000 UNIT/ML-0.1% EYE DROPS,SUSPENSION) Use 1 Drop in the right eye twice daily. 5 mL 0 02/23/2022 08/31/2022 Discontinued Comment on above: Use 1 Drop in the ri ght eye twice daily. dicyclomine hydrochloride 20 mg oral tablet (20 sources) Anticholinergic Start: 12-08-19 take 1 tablet by mouth three times daily Dicyclomine 20 mg tablet Active 20 MG PO Three times daily December 074 12:00am Complies with drug therapy Start: 05-22-2021 take 1 capsule by mo ut three times daily as needed Dicyclomine HCl 10 MG 1 CAPSULE Orally tid prn for 30 days May, Active DULoxetine 60 mg delayed release oral capsule (20 sources) Serotonin and Norepinephrine Reuptake Inhibitor Start: 11-05-2020 take 60 mg by mouth once daily Cymbalta 60 mg, Oral, Daily, Other (see comment) Start Date: 11/05/20 Status: Ordered Start: 02-16-2018 End: 07-26-2018 Duloxetine 60 mg capsule,del ayed release(/EC) Discontinued February 16, 2018 1:00am July 26, 2018 11:32am Start: 11-07-2016 End: 03-06-2024 take 1 capsule by mouth once DULoxetine (CYMBALTA) 60 mg capsule Indications: Secondary osteoarthritis of multiple sites , Postlaminectomy syndrome, lumbar region Take 1 capsule by mouth every afternoon. 90 capsule 3 03/07/2024 Active Comment on above: TAKE 1 CAPSULE DAILY [place]-Vitamin C-Zinc (ELDERBERRY IMMUNE HEALTH GUMMY PO) (20 sources) Elderberry-Vitam in C-Zinc (ELDERBERRY IMMUNE HEALTH GUMMY PO) Take by mouth Active erythromycin 0.005 mg/mg ophthalmic ointment (7 sources) Macrolide, Macrolide Antimicrobial Start: 04-28-2021 End: 07-30-2021 erythromycin (ROMYCIN) 5 mg/gram (0.5 %) ophthalmic ointment Use 1 application in the left eye daily at bedtime. Apply 1/2 inch ribbon per application 0 04/28/2021 07/30/2021 Discontinued (Course of therapy completed) Comment on above: Use 1 application in the left eye daily at bedtime. Apply 1/2 inch ribbon per application Hyaluronic Oc-Cmfyhmshw-Tlou (1 source) Start: 09-22-2018 Hyaluronic Bx-Mjyoqmxpx-Kvmv Active 1 APPLIC Topical Three times daily September 22, 2018 1:36pm levothyroxine sodium 0.088 mg oral tablet (20 sources) l-Thyroxine Start: 12-17-2023 levothyroxine (Synthroid, Levoxyl) 88 MCG tablet 12/17/2023 Active Start: 09-30-2023 End: 09-29-2024 take 1 tablet by mouth before mealtime levothyroxine (Synthroid) 75 MCG tablet Indications: Hypothyroidism, unspecified type (CMS/HCC) Take 1 tablet (75 mcg) by mouth in the morning. Take before meals. 90 tablet 3 09/30/2023 01/26/2024 Discontinued Start: 09-29-2023 take 1 tablet by jose th before mealtime levothyroxine (Synthroid, Levoxyl) 88 MCG tablet Indications: Hypothyroidism, unspecified type (CMS/HCC) Take 1 tablet (88 mcg) by mouth in the morning. Take before meals. 90 tablet 3 09/29/2023 Active Start: 09-29-2023 take 1 tablet by jose th before mealtime levothyroxine (Synthroid, Levoxyl) 88 MCG tablet Indications: Hypothyroidism, unspecified type (CMS/HCC) Take 1 tablet (88 mcg) by mouth in the morning. Take before meals. 90 tablet 3 09/29/2023 Active Start: 09-08-2023 Levothyroxine 112 mcg tablet Active 88 MCG PO Every morning September 08, 2023 11:02am Complies with drug therapy Start: 09-08-2023 take 88 ug by mouth once daily in the morning Levothyroxine Active 88 MCG PO Every morning September 08, 2023 11:02am Start: 11-18-2021 take 88 ug by mouth once daily Synthroid 88 mcg, Oral, Daily Start Date: 11/18/21 Status: Ordered Start: 11-29-2020 End: 09-29-2023 take 1 tablet by mouth once daily levothyroxine (SYNTHROID) 88 mcg tablet Take 88 mcg by mouth once daily. 11/29/2020 Active Start: 11-07-2016 End: 09-08-2023 take 1 tablet by mouth once daily in the morning Levothyroxine 112 mcg tablet Discontinued 112 MCG PO Every morning November 07, 2016 12:00am September 08, 2023 11:04am Synthroid 88 MCG 1 tablet every morning [...] ve losartan potassium 100 mg oral tablet (20 sources) Angiotensin 2 Receptor Yoselyn Start: 03-18-2023 End: 09-28-2024 take 1 tablet by mouth once daily Losartan 100 mg tablet Active 100 MG PO Daily September 08, 2023 12:00am Complies with drug therapy Start: 01-29-2023 End: 01-29-2024 losartan (COZAAR) 50 mg tabl et Take 50 mg by mouth. 01/29/2023 11/29/2023 Discontinued (Course of therapy completed) Comment on above: Take 50 mg by mouth. meloxicam 15 mg oral tablet (20 sources) Nonsteroidal Anti-inflammatory Drug Start: 11-08-19 End: 03-06-19 take 1 tablet by mouth once daily at mealtime for pain meloxicam (MOBIC) 15 mg tablet Indications: Multiple joint pain , Secondary osteoarthritis of multiple sites TAKE 1 TABLET BY MOUTH DAILY WITH FOOD FOR PAIN 90 tablet 3 03/07/2024 Active take 1 tablet by jose every twenty-four hours Mobic 7.5 MG 1 tablet Orally Once a day for 30 day(s) Active Comment on above: TAKE 1 TABLET DAILY WITH FOOD FOR PAIN methylPREDNISolone (9 sources) Corticosteroid Start: 01-28-2024 End: 02-04-2024 methylPREDNISolone (Medrol Dospak) 4 MG tablets Indications: Greater trochanteric bursitis of right hip , Pain of right upper extremity Follow schedule on package instructions 21 tablet 01/28/2024 02/04/2024 Active Start: 02-23-2019 End: 12-11-2019 take 1 tablet by mouth once daily in the morning Methylprednisolone 16 mg Tablet Discontinued 32 MG PO Every morning 11 12February 23, 2019 1:00am December 11, 2019 4:08pm next dose 02/24/19 am Start: 02-23-2019 End: 12-11-2019 take 1 dose by mouth once daily in the morning Methylprednisolone Discontinued 32 MG PO Every morning 11 12February 23, 2019 1:00am December 11, 2019 4:08pm next dose 02/24/19 am Multiple Vitamins-Minerals (EYE VITAMINS PO) (20 sources) Multiple Vitamins-Minerals (EYE VITAMINS PO) Take by mouth Active omeprazole 40 mg delayed release oral capsule (20 sources) Proton Pump Inhibitor Start: 023 take 1 capsule by mouth twice daily Omeprazole 40 mg capsule,delayed release(DR/EC) Active 40 MG PO Twice daily December 08, 2023 1:50pm Complies with drug therapy Start: 11-12-2020 End: 12-08-2023 take 1 capsule by mouth once daily omeprazole (PRILOSEC) 40 mg capsule Take 40 mg by mouth once daily. 11/12/2020 Active Start: 11-05-2020 take 80 mg by mouth once daily Prilosec 80 mg, Oral, Daily, Control of stomach acid Start Date: 11/05/20 Status: Ordered Start: 11-05-2020 take 40 mg by mouth once daily Prilosec 40 mg, Oral, Daily, Control of stomach acid Start Date: 11/05/20 Status: Ordered Start: 11-07-2016 End: 07-22-2021 take 1 tablet by mouth once daily in the morning Omeprazole Magnesium (Prilosec Otc) 20 mg Tablet,Delayed Release (Dr/Ec) Discontinued 20 MG PO Every morning November 07, 2016 12:00am November 12, 2020 2:25pm Comment on above: Take 40 mg by mouth once daily. Omeprazole Magnesium Active 20 MG Oral Every morning November 07, 2016 1:05pm phenylephrine hydrochloride 25 mg/ml ophthalmic solution (9 sources) alpha-1 Adrenergic Agonist Start: 10-05-2024 End: 10-05-2024 PHENYLephrine 2.5 % 1 drop (AK-DILATE, CHEY-SYNEPHRINE) Start: 10-05-2024 End: 10-05-2024 1 drop, BOTH EYES, DIRECT ED, Starting on Ailyn 10/05/24 at 1030, Until Ailyn 10/05/24 at 2229, Administer for dilation PROTECT FROM LIGHT, OPHT CLINIC MED ORDERS Start: 04-13-2024 End: 04-13-2024 PHENYLephrine 2.5 % 1 Drop ( AK-DILATE, CHEY-SYNEPHRINE) Start: 04-13-2024 End: 04-13-2024 1 Drop, BOTH EYES, DIRECT ED, Starting on Ailyn 04/13/24 at 1030, Until Ailyn 04/13/24 at 2229, Administer for dilation PROTECT FROM LIGHT Start: 01-20-2024 End: 01-20-2024 PHENYLephrine 2.5 % 1 Drop ( AK-DILATE, CHEY-SYNEPHRINE) Start: 01-20-2024 End: 01-20-2024 1 Drop, BOTH EYES, DIRECT ED, Starting on Ailyn 01/20/24 at 1000, Until Ailyn 01/20/24 at 2159, Administer for dilation PROTECT FROM LIGHT, OPHT CLINIC MED ORDERS Start: 06-03-2023 End: 06-03-2023 PHENYLephrine 2.5 % 1 Drop ( AK-DILATE, CHEY-SYNEPHRINE) Start: 04-29-2023 End: 04-29-2023 PHENYLephrine 2.5 % 1 Drop ( AK-DILATE, CHEY-SYNEPHRINE) Start: 01-27-2022 End: 01-28-2022 PHENYLephrine 2.5 % 1 Drop ( AK-DILATE, CHEY-SYNEPHRINE) prednisoLONE acetate 10 mg/ml ophthalmic suspension (20 sources) Corticosteroid Start: 2023 End: 03-08-2024 take 1 drop(s) into the eye(s) every other day prednisoLONE acetate (Pred-Forte) 1 % ophthalmic suspension PLACE 1 DROP INTO BOTH EYES EVERY OTHER DAY 2023 03/08/2024 Discontinued Start: 08-31-2022 End: 09-02-2023 prednisoLONE acetate (PRED [...] 10 mL 5 04/28/2021 Active Start: 11-12-2020 End: 03-20-2024 prednisoLONE acetate (PRED F ORTE) 1 % ophthalmic suspension USE 1 DROP IN BOTH EYES ONCE DAILY. 5 mL 3 03/20/2024 Active Start: 11-12-2020 take 1 drop(s) into the eye(s) once daily Prednisolone Acetate 1 % drops,suspension Active 1 DROPS EYE-BOTH Daily November 12, 2020 12:00am Start: 11-12-2020 take 1 drop(s) into the [...] other day. Probiotic (4 sources) Probiotic Active proparacaine hydrochloride 5 mg/ml ophthalmic solution (11 sources) Local Anesthetic Start: 10-05-2024 End: 10-05-2024 proparacaine 0.5 % 1 drop (ALCAINE) Start: 10-05-2024 End: 10-05-2024 1 drop, BOTH EYES, DIRECT ED, Starting on Ailyn 10/05/24 at 1030, Until Ailyn 10/05/24 at 2229, Administer for pneumo tonometry, tonopen tonometry, or pachymetry. In the event of a proparacaine shortage, administer tetracaine 0.5% ophthalmic drops 1 drop in both eyes as directed for pneumo tonometry, tonopen tonometry, or pachymetry, OPHT CLINIC MED ORDERS Start: 04-13-2024 End: 04-13-2024 proparacaine 0.5 % 1 Drop (A LCAINE) Start: 04-13-2024 End: 04-13-2024 1 Drop, BOTH EYES, DIRECT ED, Starting on Ailyn 04/13/24 at 1030, Until Ailyn 04/13/24 at 2229, Administer for pneumo tonometry, tonopen tonometry, or pachymetry. In the event of a proparacaine shortage, administer tetracaine 0.5% ophthalmic drops 1 drop in both eyes as directed for pneumo tonometry, tonopen tonometry, or pachymetry Start: 04-06-2024 End: 04-06-2024 proparacaine 0.5 % 1 Drop (A LCAINE) Start: 01-20-2024 End: 01-20-2024 proparacaine 0.5 % 1 Drop (A LCAINE) Start: 01-20-2024 End: 01-20-2024 1 Drop, BOTH EYES, DIRECT ED, Starting on Ailyn 01/20/24 at 1000, Until Ailyn 01/20/24 at 2159, Administer for pneumo tonometry, tonopen tonometry, or pachymetry. In the event of a proparacaine shortage, administer tetracaine 0.5% ophthalmic drops 1 drop in both eyes as directed for pneumo tonometry, tonopen tonometry, or pachymetry, OPHT CLINIC MED ORDERS Start: 11-11-2023 End: 11-11-2023 proparacaine 0.5 % 1 Drop (A LCAINE) Start: 04-29-2023 End: 04-29-2023 proparacaine 0.5 % 1 Drop (A LCAINE) Start: 01-27-2022 End: 01-28-2022 proparacaine 0.5 % 1 Drop (A LCAINE) Start: 05-06-2021 End: 05-06-2021 proparacaine 0.5 % 1 Drop (A LCAINE) silver sulfADIAZINE 10 mg/ml topical cream (3 sources) Sulfonamide Antibacterial Start: 04-21-2023 End: 04-20-2024 silver sulfADIAZINE (Silvadene) 1 % cream Indications: Partial thickness burn of left forearm, initial encounter Apply to affected area daily x 7-10 days 400 g 04/21/2023 09/29/2023 Discontinued 1 ml triamcinolone acetonide 40 mg/ml prefilled syringe (6 sources) Corticosteroid Start: 03-23-2024 triamcinolone acetonide (Kenalog-40) injection 80 mg Start: 03-23-2024 triamcinolone acetonide (Kenalog-40) injection 80 mg Start: 03-17-2024 End: 03-17-2024 triamcinolone acetonide (Oliver alog-40) injection 80 mg Start: 03-17-2024 End: 03-17-2024 80 mg, Intra-articular, Once , On Wed03/17/24 at 1530, For 1 dose Start: 03-17-2024 End: 03-17-2024 triamcinolone acetonide (Oliver alog-40) injection 80 mg Start: 03-17-2024 End: 03-17-2024 80 mg, Intra-articular, Once , On Wed03/17/24 at 1530, For 1 dose tropicamide 10 mg/ml ophthalmic solution (9 sources) Anticholinergic Start: 10-05-2024 End: 10-05-2024 tropicamide 1 % 1 drop (MYDRIACYL) Start: 10-05-2024 End: 10-05-2024 1 drop, BOTH EYES, DIRECT ED, Starting on Ailyn 10/05/24 at 1030, Until Ailyn 10/05/24 at 2229, Administer for dilation, OPHT CLINIC MED ORDERS Start: 04-13-2024 End: 04-13-2024 tropicamide 1 % 1 Drop (MYDR IACYL) Start: 04-13-2024 End: 04-13-2024 1 Drop, BOTH EYES, DIRECT ED, Starting on Ailyn 04/13/24 at 1030, Until Ailyn 04/13/24 at 2229, Administer for dilation Start: 01-20-2024 End: 01-20-2024 tropicamide 1 % 1 Drop (MYDR IACYL) Start: 01-20-2024 End: 01-20-2024 1 Drop, BOTH EYES, DIRECT ED, Starting on Ailyn 01/20/24 at 1000, Until Ailyn 01/20/24 at 2159, Administer for dilation, OPHT CLINIC MED ORDERS Start: 06-03-2023 End: 06-03-2023 tropicamide 1 % 1 Drop (MYDR IACYL) Start: 04-29-2023 End: 04-29-2023 tropicamide 1 % [...] daily. 0 11/23/2022 Active Start: 02-23-2019 End: 11-29-2023 take 1 tablet by mouth once daily Verapamil 240 mg Tablet Extended Release Discontinued 240 MG PO Daily February 23, 2019 1:00am September 08, 2023 11:03am Start: 11-07-2016 End: 02-23-2019 take 1 tablet by mouth three times daily Verapamil 80 mg tablet Discontinued 80 MG PO Three times daily November 07, 2016 12:00am February 23, 2019 2:33pm Comment on above: Take 240 mg by mouth . vitamin B12 (20 sources) Vitamin B12 Start: 11-05-2020 take 200 ug by mouth once daily Vitamin B-12 200 mcg, Oral, Daily, Prophylaxis Start Date: 11/05/20 Status: Ordered End: 11-28-2023 take 3 tablets by mouth once daily cyanocobalamin (VITAMIN B-12) 1,000 mcg tab Take 3,000 mcg by mouth once daily. 11/28/2023 Discontinued (Course of therapy completed) Vitamin B12 Acti ve Comment on above: Take 3,000 mcg by mo [facility] once daily. Vitamin D (2 sources) Start: 11-05-2020 Vitamin D 4000 IU, Oral, Daily, Prophylaxis Start Date: 11/05/20 Status: Ordered Vitamin D 2000 UNIT (6 sources) take 3 tablets by mouth once Vitamin D 2000 UNIT 3 tablet Orally Active Completed/Discontinued Medications Medication Drug Class(es) Dates Sig (Normalized) Sig (Original) acetaminophen 325 mg / HYDROcodone bitartrate 5 mg oral tablet (20 sources) Opioid Agonist Start: 09-06-2018 End: 11-01-2018 take 1 tablet by mouth every four to six hours as needed for pain Hydrocodone-Acetami nophen ([place]) 5-325 mg tablet Discontinued 1 - 2 TAB PO EVERY 4-6 HOURS as needed for pain 14 3 September 06, 2018 November 01, 2018 2:18pm Start: 08-02-2018 End: 08-15-2018 take 1 tablet by mouth every four to six hours as needed for pain Hydrocodone-Acetaminophen ([place]) 5-325 mg tablet Discontinued 1 - 2 TAB PO EVERY 4-6 HOURS as needed for pain 10 3 August 02, 2018 August 15, 2018 9:09am Start: 11-07-2016 End: 07-26-2018 take 1 tablet by mouth every four hours Hydrocodone-Acetaminophen ([place]) 5-325 mg tablet Discontinued 1 TAB PO Q4H November 07, 2016 July 26, 2018 11:32am alendronic acid 70 mg oral tablet (20 sources) Bisphosphonate Start: 12-08-2018 End: 09-02-2022 take 1 tablet by mouth every week Alendronate (Fosamax) 70 mg Tablet Discontinued 70 MG PO every week December 08, 2018 12:00am September 02, 2022 10:04am Comment on above: Take 1tab by mouth o nce a week on empty stomach with full glass of water. No food/drink or lying down for 45-60minutes after med. TAKE 1 TABLET ONCE A WEEK ON AN EMPTY STOMACH WITH FULL GLASS OF WATER. NO FOOD/DRINK OR LYING DOWN FOR 45 TO 60 MINUTES AFTER MEDICATION anastrozole 1 mg oral tablet (20 sources) Aromatase Inhibitor Start: 11-23-2023 End: 12-08-2023 take 1 tablet by mouth once daily Anastrozole 1 mg tablet Discontinued 0 .ROUTE .COMPLEX November 23, 2023 11:40am December 08, 2023 1:33pm TAKE 1 TABLET BY MOUTH DAILY Start: 11-02-2018 End: 08-28-2024 take 1 tablet by mouth once daily Anastrozole 1 mg Tablet Discontinued 1 MG PO Daily 90 November 23, 2022 8:37am November 23, 2023 11:40am Anastrozole Acti ve Comment on above: Take 1 mg by mouth o nce daily. azithromycin 250 mg oral tablet (16 sources) Macrolide Antimicrobial Start: 04-09-2024 End: 09-06-2024 azithromycin (Zithromax) 250 MG tablet Indications: Acute bronchitis, unspecified organism Z-Pack. Take 2 tablets on day 1, and one tablet per day on days 2-5. 6 tablet 04/09/2024 09/06/2024 Discontinued (Therapy completed) Start: 01-12-2024 End: 01-26-2024 azithromycin (Zithromax) 250 MG tablet Indications: Acute cough , Bronchitis Take 1 tablet (250 mg) by mouth Daily Take 2 tabs on day 1 and 1 tab on days 2-5 then stop 6 tablet 01/12/2024 01/26/2024 Discontinued Start: 02-23-2019 End: 04-14-2019 take 1 tablet by mouth every twenty-four hours in the morning Azithromycin 250 mg Tablet Discontinued 500 MG PO Q24H 4 2 February 23, 2019 1:00am April 14, 2019 4:10pm next dose 02/24/19 am Start: 02-23-2019 End: 04-14-2019 take 1 dose by mouth every twenty-four hours in the morning Azithromycin Discontinued 500 MG PO Q24H 4 2 February 23, 2019 1:00am April 14, 2019 4:10pm next dose 02/24/19 am bevacizumab (Jase's) 1.25 mg intravitreal syringe (AVASTIN) (20 sources) Start: 10-05-2024 End: 10-05-2024 bevacizumab (Jase's) 1.25 mg intravitreal syringe (AVASTIN) Start: 10-05-2024 End: 10-05-2024 1.25 mg, ONCE, 1 dose, Start ing on Ailyn 10/05/24 at 1253, Until Ailyn 10/05/24 at 1253 Start: 04-06-2024 End: 04-06-2024 bevacizumab (Jase's) 1.25 mg intravitreal syringe (AVASTIN) Start: 04-06-2024 End: 04-06-2024 1.25 mg, ONCE, 1 dose, Start ing on Ailyn 04/06/24 at 1055, Until Ailyn 04/06/24 at 1055 Start: 01-20-2024 End: 01-20-2024 bevacizumab (Jase's) 1.25 mg intravitreal syringe (AVASTIN) Start: 01-20-2024 End: 01-20-2024 1.25 mg, ONCE, 1 dose, Start ing on Ailyn 01/20/24 at 1034, Until Ailyn 01/20/24 at 1034 Start: 11-11-2023 End: 11-11-2023 bevacizumab (Jase's) 1.25 mg intravitreal syringe (AVASTIN) Start: 11-11-2023 End: 11-11-2023 1.25 mg, ONCE, 1 dose, Start ing on Ailyn 11/11/23 at 1003, Until Ailyn 11/11/23 at 1003 Start: 11-11-2023 End: 11-11-2023 bevacizumab (Jase's) 1.25 mg intravitreal syringe (AVASTIN) Start: 11-11-2023 End: 11-11-2023 1.25 mg, ONCE, 1 dose, Start ing on Wed11/11/23 at 1002, Until Wed11/11/23 at 1002 Start: 09-16-2023 End: 09-16-2023 bevacizumab (Jase's) 1.25 mg intravitreal syringe (AVASTIN) Start: 08-05-2023 End: 08-05-2023 bevacizumab (Jase's) 1.25 mg intravitreal syringe (AVASTIN) Start: 07-01-2023 End: 07-01-2023 bevacizumab (Jase's) 1.25 mg intravitreal syringe (AVASTIN) Start: 06-03-2023 End: 06-03-2023 bevacizumab (Jase's) 1.25 mg intravitreal syringe (AVASTIN) ciprofloxacin 500 mg oral tablet (18 sources) Quinolone Antimicrobial Start: 10-27-2023 End: 01-12-2024 ciprofloxacin (Cipro) 500 MG tablet 10/27/2023 01/12/2024 Discontinued Start: 02-23-2022 End: 08-31-2022 take 1 drop(s) [...] 1 ml denosumab 60 mg/ml prefilled syringe (20 sources) RANK Ligand Inhibitor Start: End: inject 1 dose by subcutaneous injection every 30 days 60 mg, SUBCUTANEOUS, ONCE (UP TO 30 DAYS AMB), 1 dose, On Wed08/28/24 at 1630, Allow To Come To Room Temperature Before Administration. REFRIGERATE Start: 02-29-2024 End: 03-06-2024 inject 1 dose by subcutaneous injection every 30 days 60 mg, SUBCUTANEOUS, ONCE (UP TO 30 DAYS AMB), 1 dose, On Wed02/29/24 at 1200, Allow To Come To Room Temperature Before Administration. REFRIGERATE Start: 09-01-2023 End: 10-01-2023 denosumab 60 mg injection (P ROLIA) inject 60 mg by subc utaneous injection once denosumab (Prolia) 60 MG/ML solution prefilled syringe Inject 60 mg under the skin 1 (one) time Active ergocalciferol 1.25 mg oral capsule (17 sources) Provitamin D2 Compound Start: 03-08-2023 End: 10-27-2023 ergocalciferol (Vitamin D2) 1.25 MG (17880 UT) capsule TAKE 1 CAPSULE TWICE A WEEK (WED & ) WITH FOOD FOR 8 WEEKS 03/08/2023 10/27/2023 Discontinued Comment on above: (take by mouth with food twice a week, ONE CAPSULE ON WEDNESDAY AND ONE ON WEDNESDAY) FOR A TOTAL OF 8 WEEKS. fluticasone propionate 0.05 mg/actuat metered dose nasal spray (11 sources) Corticosteroid Start: 01-12-2024 End: 03-08-2024 take 1 spray(s) nasal route in the morning fluticasone (Flonase) 50 MCG/ACT nasal spray Indications: Acute cough , Bronchitis Administer 1 spray into each nostril in the morning and 1 spray before bedtime. Shake gently. Before first use, prime pump. After use, clean tip and replace cap.. 16 g 01/12/2024 03/08/2024 Discontinued Hyaluronic Ch-Thsfoyfqt-Ykdg (Radiaplexrx) Gel (7 sources) Start: 09-22-2018 End: 02-21-2019 Hyaluronic Ux-Iykzjhxeb-Oqsg (Radiaplexrx) Gel Discontinued 1 APPLIC TOPICAL Three times daily September 22, 2018 12:00am February 21, 2019 1:47pm hydroCHLOROthiazide 50 mg oral tablet (20 sources) Thiazide Diuretic Start: 06-21-2009 End: 08-28-2024 take 1 tablet by mouth once daily in the morning Hydrochlorothiazide 50 mg tablet Discontinued 50 MG PO Every morning November 07, 2016 12:00am September 08, 2023 11:02am Comment on above: Take one(1) tablet d aily hydroxychloroquine sulfate 200 mg oral tablet (14 sources) Antimalarial, Antirheumatic Agent Start: 11-07-2016 End: 07-22-2021 take 1 tablet by mouth twice daily Hydroxychloroquine 200 mg tablet Discontinued 200 MG PO Twice daily November 07, 2016 12:00am November 12, 2020 1:39pm Comment on above: Hydroxychloroquine A ctive 200 MG Oral Twice daily November 07, 2016 1:05pm ibuprofen 600 mg oral tablet (14 sources) Nonsteroidal Anti-inflammatory Drug Start: 09-06-2018 End: 11-01-2018 take 4 tablets by mouth every twenty-fo ur hours for pain Ibuprofen 600 mg tablet Discontinued 600 MG PO EVERY 4-6 HOURS as needed for pain 27 08September 06, 2018 12:00am November 01, 2018 2:18pm do not exceed 4 doses in a 24 hour period Start: 08-02-2018 End: 08-15-2018 take 4 tablets by mouth every twenty-four hours for pain Ibuprofen 600 mg tablet Discontinued 600 MG PO EVERY 4-6 HOURS as needed for pain 27 08August 02, 2018 12:00am August 15, [...] the le ft eye four times daily. nitrofurantoin, macrocrystals 25 mg / nitrofurantoin, monohydrate 75 mg oral capsule (8 sources) Nitrofuran Antibacterial Start: 01-26-2024 End: 02-02-2024 take 1 capsule by mouth once nitrofurantoin, macrocrystal-mono hydrate, (Macrobid) 100 MG capsule Indications: Acute cystitis without hematuria Take 1 capsule (100 mg) by mouth every 12 (twelve) hours for 7 days 14 capsule 01/26/2024 02/02/2024 Start: 10-18-2023 End: 10-25-2023 take 1 capsule by mouth in the morning nitrofurantoin, macrocrystal-monohydrate , (Macrobid) 100 MG capsule Indications: Urinary frequency , Acute cystitis without hematuria Take 1 capsule (100 mg) by mouth in the morning and 1 capsule (100 mg) before bedtime. Do all this for 7 days. 14 capsule 10/18/2023 10/25/2023 Active Omeprazole Magnesium (Prilosec Otc) 20 mg Tablet,Delayed Release (Dr/Ec) (4 sources) Start: 11-07-2016 End: 11-12-2020 take 1 tablet by mouth once daily in the morning Omeprazole Magnesium (Prilosec Otc) 20 mg Tablet,Delayed Release (Dr/Ec) Discontinued 20 MG PO Every morning November 07, 2016 12:00am November 12, 2020 2:25pm ondansetron 4 mg disintegrating oral tablet (17 sources) Serotonin-3 Receptor Antagonist Start: 10-27-2023 End: 03-08-2024 ondansetron ODT (Zofran-ODT) 4 MG disintegrating tablet 10/27/2023 03/08/2024 Discontinued sulfamethoxazole 800 mg / trimethoprim 160 mg oral tablet (7 sources) Dihydrofolate Reductase Inhibitor Antibacterial, Sulfonamide Antimicrobial Start: 11-07-2016 End: 07-26-2018 take 1 tablet by mouth every twelve hours Sulfamethoxazole-Tr imethoprim (Bactrim Ds) 800-160 mg tablet Discontinued 1 TAB PO Q12H November 07, 2016 12:00am July 26, 2018 11:35am Problems Active Problems Problem Classification Problem Date Documented Date Episodic/Chronic Abdominal pain (20 sources) Abdominal pain; Translations: [Unspecified abdominal pain] Onset: 2 Episodic Acquired foot deformities (20 sources) Hammer toe; Translations: [Other hammer toe(s) (acquired), right foot] Onset: 7 03-17-2016 Chronic Acute and chronic tonsillitis (20 sources) Amygdalolith; Translations: [Other chronic diseases of tonsils and adenoids] Onset: 3 08-13-2022 Chronic Asthma (20 sources) Mild intermittent asthma; Translations: [Mild intermittent asthma, uncomplicated] Onset: 9 04-14-2021 Chronic Cancer of breast (20 sources) Intraductal carcinoma in situ of breast; 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] Onset: 9 08-13-2022 Chronic Cardiac dysrhythmias (20 sources) Supraventricular tachycardia; Translations: [SVT (supraventricular tachycardia)] Onset: 3 12-08-2022 Chronic Cataract (20 sources) Pseudophakia; Translations: [Presence of intraocular lens] Onset: 2 Chronic Chronic obstructive pulmonary disease and bronchiectasis (2 sources) Bronchitis; Translations: [Bronchitis, not specified as acute or chronic] 01-12-2024 Episodic Complications of surgical procedures or medical care (1 source) Cataract fragments in the eye post cataract surgery; Translations: [Cataract (lens) fragments in eye following cataract surgery, left eye] Episodic Deficiency and other anemia (1 source) Anemia of chronic disease; Translations: [Anemia in other chronic diseases classified elsewhere] 11-28-2023 Chronic Deficiency and other anemia (1 source) Anemia in other chronic diseases classified elsewhere; Translations: [Anemia of chronic disease] Onset: 4 Chronic Disorders of lipid metabolism (20 sources) Hyperlipidemia; Translations: [Hyperlipidemia, unspecified] Onset: 3 08-13-2022 Chronic Disorders of teeth and jaw (1 source) Other specified disorders of teeth and supporting structures; Translations: [OTH SPEC DISORDERS TEETH SUPP STRCT] Onset: 2 Episodic Diverticulosis and diverticulitis (20 sources) Diverticular disease of colon; Translations: [Diverticulosis [...] without bleeding] Onset: 1 Resolved: 1 Episodic Genitourinary symptoms and ill-defined conditions (6 sources) Polyuria; Translations: [Polyuria] 09-29-2023 Episodic Gout and other crystal arthropathies (20 sources) 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, of multiple sites; Translations: [Other chondrocalcinosis, multiple sites] Onset: 5 07-22-2017 Chronic Headache; including migraine (2 sources) Migraine 11-08-2020 Chronic Inflammatory conditions of male genital organs (2 sources) Epididymitis 11-18-2021 Episodic Menopausal disorders (20 sources) Atrophic vaginitis; Translations: [Postmenopausal atrophic vaginitis] Onset: 3 08-13-2022 Chronic Mycoses (1 source) Onychomycosis of toenails; Translations: [Tinea unguium] Episodic Nausea and vomiting (15 sources) Nausea with vomiting, unspecified; Translations: [Nausea] Onset: 2 12-08-2023 Episodic Nonmalignant breast conditions (20 sources) Mammographic microcalcification found on diagnostic imaging of breast; Translations: [Mammographic microcalcification of right breast] Onset: 4 Resolved: 4 10-18-2020 Episodic Nutritional deficiencies (20 sources) Vitamin D deficiency; Translations: [Vitamin D deficiency, unspecified] Onset: 2 Resolved: 3 09-28-2011 Chronic Osteoarthritis (20 sources) Degenerative joint disease involving multiple joints; Translations: [Secondary multiple arthritis] Onset: 5 04-17-2014 Chronic Osteoporosis (9 sources) Senile osteoporosis; Translations: [Age-related osteoporosis without current pathological fracture] Onset: 4 09-03-2023 Chronic Other aftercare (2 sources) Encounter for therapeutic drug level monitoring; Translations: [Encounter for therapeutic drug monitoring] 09-08-2023 Episodic Other aftercare (1 source) 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; Translations: [OTH PSYCHOLOGY DEPARTMENT CHAIR CURRENT DRUG THERAPY] Onset: 2 Episodic Other connective tissue disease (1 source) Pain in both feet; Translations: [Pain in right foot] 11-29-2023 Episodic Other connective tissue disease (1 source) Bilateral pain in upper arms; Translations: [Pain in right upper arm] 11-29-2023 Episodic Other connective tissue disease (6 sources) Trochanteric bursitis; Translations: [Trochanteric bursitis, right hip] 01-28-2024 Episodic Other connective tissue disease (2 sources) Pain in right arm; Translations: [Pain in right arm] 01-28-2024 Episodic Other diseases of veins and lymphatics (20 sources) Lymphedema; Translations: [Lymphedema, not elsewhere classified] Onset: 3 08-13-2022 Chronic Other ear and sense organ disorders (6 sources) Sensorineural hearing loss, bilateral; Translations: [Sensorineural hearing loss, bilateral] 12-03-2023 Chronic Other eye disorders (10 sources) History of Descemet's membrane endothelial keratoplasty; 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 Other eye disorders (2 sources) Bilateral posterior vitreous detachment; Translations: [Vitreous degeneration, bilateral] 01-20-2024 Chronic Other eye disorders (1 source) Corneal transplant status; Translations: [History of Descemet membrane endothelial keratoplasty (DMEK)] Onset: 5 Chronic Other eye disorders (1 source) Vitreous degeneration, bilateral; Translations: [Posterior vitreous detachment of both eyes] Onset: 5 Chronic Other eye disorders (3 sources) Tear film insufficiency; Translations: [Dry eye syndrome of bilateral lacrimal glands] 06-03-2023 Episodic Other eye disorders (1 source) History of nitwgqo-cubauzjx-punumt (YAG) laser capsulotomy of lens; Translations: [Cataract extraction status, right eye] 10-05-2024 Episodic Other eye disorders (1 source) Cataract extraction status, right eye; Translations: [History of YAG laser capsulotomy of lens, right] Onset: 5 Episodic Other gastrointestinal disorders (12 sources) Irritable bowel syndrome; Translations: [Mixed irritable bowel syndrome] 08-14-2024 Chronic Other gastrointestinal disorders (2 sources) Mixed irritable bowel syndrome Chronic Other gastrointestinal disorders (20 sources) Irritable bowel syndrome with diarrhea; Translations: [Irritable bowel syndrome with diarrhea] Onset: 3 08-13-2022 Chronic Other gastrointestinal disorders (11 sources) Constipation alternates with diarrhea; Translations: [Other specified symptoms and signs involving the digestive system and abdomen] 12-08-2023 Episodic Other gastrointestinal disorders (7 sources) Diarrhea; Translations: [Diarrhea, unspecified] 10-27-2023 Episodic Other gastrointestinal disorders (4 sources) Other specified symptoms and signs involving the digestive system and abdomen; Translations: [Other symptoms involving digestive system] Onset: 2 Resolved: 2 Episodic Other hematologic conditions (1 source) ESR raised; Translations: [Elevated erythrocyte sedimentation rate] 11-28-2023 Episodic Other injuries and conditions due to external causes (2 sources) Foreign body in right ear; Translations: [Foreign body in right ear, initial encounter] 09-06-2024 Episodic Other lower respiratory disease (2 sources) Cough; Translations: [Acute cough] 01-12-2024 Episodic Other non-traumatic joint disorders (1 source) Pain in right knee; Translations: [Pain in joint, lower leg] 11-29-2023 Episodic Other non-traumatic joint disorders (4 sources) Disorder of shoulder; Translations: [Other specified joint disorders, right shoulder] 03-17-2024 Episodic Other nutritional; endocrine; and metabolic disorders (1 source) Hypocalcemia; Translations: [Hypocalcemia] 03-05-2024 Chronic Other nutritional; endocrine; and metabolic disorders (1 source) Hypocalcemia; Translations: [Hypocalcemia] Onset: 5 Chronic Other nutritional; endocrine; and metabolic disorders (2 sources) Overweight; Translations: [Overweight] Onset: 3 Episodic Other nutritional; endocrine; and metabolic disorders (1 source) Hyperuricemia; Translations: [Hyperuricemia without signs of inflammatory arthritis and tophaceous disease] 11-28-2023 Episodic Other upper respiratory infections (20 sources) Chronic sinusitis; Translations: [Chronic sinusitis, unspecified] Onset: 3 08-13-2022 Chronic Peripheral and visceral atherosclerosis (2 sources) Atherosclerosis of aorta; Translations: [Atherosclerosis of aorta] 09-29-2023 Chronic Pneumonia (except that caused by tuberculosis or sexually transmitted disease) (7 sources) Pneumonia; Translations: [Pneumonia, unspecified organism] 02-21-2019 Episodic Prolapse of female genital organs (20 sources) Disorder of rectum; Translations: [Rectocele] Onset: 3 08-13-2022 Chronic Residual codes; unclassified (5 sources) Personal history of other drug therapy; Translations: [Personal history of other drug therapy] Onset: 5 09-03-2023 Episodic Residual codes; unclassified (3 sources) Past history of procedure; Translations: [Personal history of other medical treatment] 11-29-2023 Episodic Retinal detachments; defects; vascular occlusion; and retinopathy (20 sources) Retinal edema; 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] Onset: 5 Chronic Skin and subcutaneous tissue infections (8 sources) Abscess; Translations: [Cutaneous abscess, unspecified] 11-09-2016 [...] unspecified; Translations: [Supraventricular tachycardia, unspecified] Onset: 3 Unclassified (1 source) 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; 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] Onset: 2 Urinary tract infections (6 sources) Acute cystitis; Translations: [Acute cystitis without hematuria] 10-18-2023 Episodic Past or Other Problems Problem Classification Problem Date Documented Da te Episodic/Chronic Anxiety disorders (20 sources) Anxiety; Translations: [Anxiety disorder, unspecified] Onset: 3 Resolved: 3 01-28-2023 Chronic Calculus of urinary tract (20 sources) Kidney stone; Translations: [Calculus of kidney] Onset: 2 Episodic Cancer of breast (20 sources) History of malignant neoplasm of breast; Translations: [Personal history of malignant neoplasm of breast] Onset: 1 08-27-2020 Episodic Conditions associated with dizziness or vertigo (20 sources) Vertigo; Translations: [Dizziness and giddiness] Onset: 3 12-08-2022 Episodic Immunizations and screening for infectious disease (20 sources) Anti-nuclear factor positive; Translations: [Other specified abnormal immunological findings in serum] Onset: 2 Resolved: 7 06-02-2016 Episodic Malaise and fatigue (20 sources) Fatigue; Translations: [Other fatigue] Onset: 2 11-25-2011 Episodic Mood disorders (20 sources) Mood disorders Onset: 3 Resolved: 5 01-29-2023 Neoplasms of unspecified nature or uncertain behavior (20 sources) Estrogen receptor positive tumor; Translations: [Neoplasm of unspecified behavior of unspecified site] Onset: 9 08-13-2022 Episodic Other acquired deformities (20 sources) Deformity of foot; Translations: [Unspecified acquired deformity of right lower leg] Onset: 7 03-17-2016 Episodic Other aftercare (20 sources) Patient encounter status; Translations: [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] Onset: 3 02-10-2012 Episodic Other aftercare (20 sources) Drug therapy finding; Translations: [Other senior care (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 therapy] Onset: 7 06-15-2016 Episodic Other aftercare (20 sources) Long-term current use of drug therapy; Translations: [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] Onset: 3 02-10-2012 Episodic [...] of right eye] Onset: 2 Episodic Other eye disorders (1 source) Dry eye syndrome of bilateral lacrimal glands; Translations: [Dry eye syndrome of both eyes] Onset: 5 Episodic Other gastrointestinal disorders (20 sources) Altered bowel function; Translations: [Change in bowel habit] Onset: 3 08-13-2022 Episodic Other hematologic conditions (1 source) Elevated erythrocyte sedimentation rate; Translations: [Elevated sed rate] Onset: 4 Episodic Other nervous system disorders (20 sources) Taste sense altered; Translations: [Parageusia] Onset: 3 08-13-2022 Episodic Other nervous system disorders (20 sources) Impairment of balance; Translations: [Other abnormalities of gait and mobility] Onset: 3 Resolved: 4 08-13-2022 Episodic Other non-traumatic joint disorders (20 sources) Multiple joint pain; Translations: [Pain in unspecified joint] Onset: 3 02-10-2012 Episodic Other non-traumatic joint disorders (20 sources) Hip pain; Translations: [Pain in right hip] Onset: 4 11-22-2013 Episodic Other non-traumatic joint disorders (20 sources) Multiple stiff joints; Translations: [Stiffness of unspecified joint, not elsewhere classified] Onset: 8 Resolved: 4 07-22-2017 Episodic Other nutritional; endocrine; and metabolic disorders (20 sources) Body mass index 25-29 - overweight; Translations: [Overweight] Onset: 3 12-08-2022 Episodic Other nutritional; endocrine; and metabolic disorders (1 source) Hyperuricemia without signs of inflammatory arthritis and tophaceous disease; Translations: [Hyperuricemia] Onset: 4 Episodic Other screening for suspected conditions (not [...] Translations: [Localized edema] Onset: 1 08-27-2020 Episodic Spondylosis; intervertebral disc disorders; other back problems (20 sources) Dorsalgia, unspecified; Translations: [Pain in thoracic spine] Onset: 9 Episodic Superficial injury; contusion (20 sources) Contusion, knee and lower leg; Translations: [Contusion of unspecified knee, initial encounter] Onset: 8 04-19-2020 Episodic Unclassified (1 source) Onset: 3 12-08-2022 Unclassified (1 source) Supraventricular tachycardia, unspecified; Translations: [Supraventricular tachycardia, unspecified] Onset: 3 Results Test Name Value Interpretation Reference Range [facility] AVASTIN (BEVACIZUMAB) 1.25MG INTRAVITREAL INJECTION OD (RIGHT EYE)on 10-05-2024 [facility] AVASTIN (BEVACIZUMAB) 1.25MG INTRAVITREAL INJECTION OS (LEFT EYE)on 10-05-2024 [facility] FUNDUS AUTOFLUORESCENCE PHOT O (FAF) OU (BOTH EYES)on 10-05-2024 [facility] Radiology Study observation (narrative) [facility] OCT MACULA CIRRUS OU (BOTH E YES)on 10-05-2024 [facility] Radiology Study observation (narrative) [facility] CNPChiquis 09-14-2024 BARRIEN Telephone (TIFFANY) FANTASMA LEWIS ([id number]) 1940 F Date Time Provider Department 09/14/24 CHALO MENJIVAR During your visit today, we recorded the following information about you: Felicia Perry LPN 09/14/2024 10:11 AM Signed Received Bone density report form [facility]. Results placed on your desk for review. Chalo Menjivar MD 09/15/2024 6:48 AM Signed Please Call patient if MyChart note not read to review results/released to My Chart if tests completed at [facility]: Bone mineral density shows osteopenia/improved spine and left hip/mildly decreased left forearm- will monitor. Happy to further review and discuss at follow up visit. Thank you. 09/13/24 eye exam 09/05/24 [facility] osteopenia/improved spine and left hip/mildly decreased left forearm L1-L4 1.408g/cm2, tscore 3.3, zscore 6.1 Left fem neck 0.825g/cm2, tscore-0.2, zscore2.2; Left total hip 0.969g/cm2, tscore0.2,zscore 2.4; Right fem neck 0.800g/cm2, tscore -0.4, zscore2; Right total hip 0.969g/cm2, tscore 0.2, zscore2.4 Left 1/3 forearm 0.578g/cm2, tsocre -1.9;zscore 1.5; 09/04/24 AND 03/06/24 prolia with nurse 08/16/24 normal calcium 10.1, vitamin D 45.8 03/02/24 borderline calcium 10.3;normal rest of cmp, cbc, esr 13, crp 0.3, vitamin D 47.1, uric acid 3.7; Brenda Luo MA 09/15/2024 8:38 AM Signed Left message for patient to call office regarding below. Allergies As of Date: 09/14/2024 Noted Allergy Reaction PLAQUENIL (HYDROXYCHLOROQUINE) 06/28/2020 14 - Other: See Comments Comments: Eye changes on exam 06/2020 (unable to clarify if changes from macular degeneration) Date Reviewed: 09/13/2024 Reviewed by: David Tomlin, OD - Fully Assessed Reason for Visit: Results [95] Cmt: [facility]'s Prescriptions as of 09/15/2024 - antiox #8/om3/dha/epa/lut/leonidas x (PRESERVISION AREDS 2, OMEGA-3, ORAL) Take by mouth. - prednisoLONE acetate (PRED FORTE) 1 % ophthalmic suspension USE 1 DROP IN BOTH EYES ONCE DAILY. - meloxicam (MOBIC) 15 mg tablet TAKE 1 TABLET BY MOUTH DAILY WITH FOOD FOR PAIN - DULoxetine (CYMBALTA) 60 mg capsule Take 1 capsule by mouth every afternoon. - dicyclomine (BENTYL) 20 mg tablet TAKE 1 TABLET BY MOUTH 3 TIMES A DAY FOR 30 DAYS - chlorthalidone (HYGROTON) 25 mg tablet Take 25 mg by mouth every morning. - Clindamycin Phosphate 1 % APPLY TO AFFECTED AREAS TWICE DAILY FOR FLARES - levothyroxine (SYNTHROID) 88 mcg tablet Take 88 mcg by mouth once daily. - omeprazole (PRILOSEC) 40 mg capsule Take 40 mg by mouth once daily. - albuterol HFA (PROVENTIL HFA, VENTOLIN HFA) 90 mcg/actuation inhaler Inhale 1 Puff as instructed every 4 hours as needed for Wheezing/Shortness of Breath. - acetaminophen (TYLENOL) 500 mg tablet Take 2 tablets by mouth three times daily. - cholecalciferol (VITAMIN D3) 2,000 unit tablet Take 2 tablets by mouth once daily. Meds Comments as of 06/02/2016: Was taking Keflex/ had kidney stones. 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 Normal [facility] CNNURSEon 09-04-2024 CNNURSE Nurse Visit (TIFFANY) FANTASMA LEWIS ([id number]) 1940 F Date Time Provider Department 09/04/24 2:00 PM NURSE [facility] NALINI ALLEN During your visit today, we recorded the following information about you: Referring Provider: CHALO MENJIVAR [[id number]] Allergies As of Date: 09/04/2024 Noted Allergy Reaction PLAQUENIL (HYDROXYCHLOROQUINE) 06/28/2020 14 - Other: See Comments Comments: Eye changes on exam 06/2020 (unable to clarify if changes from macular degeneration) Date Reviewed: 09/04/2024 Reviewed by: Felicia Perry LPN - Fully Assessed Reason for Visit: Allied Health Visit [5] Cmt: Prolia injection Primary Visit Diagnosis:Senile osteoporosis [M81.0] Other Visit Diagnosis:Personal history of other drug therapy [Z92.29] Prescriptions as of 09/04/2024 - prednisoLONE acetate (PRED FORTE) 1 % ophthalmic suspension USE 1 DROP IN BOTH EYES ONCE DAILY. - meloxicam (MOBIC) 15 mg tablet TAKE 1 TABLET BY MOUTH DAILY WITH FOOD FOR PAIN - DULoxetine (CYMBALTA) 60 mg capsule Take 1 capsule by mouth every afternoon. - dicyclomine (BENTYL) 20 mg tablet TAKE 1 TABLET BY MOUTH 3 TIMES A DAY FOR 30 DAYS - chlorthalidone (HYGROTON) 25 mg tablet Take 25 mg by mouth every morning. - Clindamycin Phosphate 1 % APPLY TO AFFECTED AREAS TWICE DAILY FOR FLARES - levothyroxine (SYNTHROID) 88 mcg tablet Take 88 mcg by mouth once daily. - omeprazole (PRILOSEC) 40 mg capsule Take 40 mg by mouth once daily. - albuterol HFA (PROVENTIL HFA, VENTOLIN HFA) 90 mcg/actuation inhaler Inhale 1 Puff as instructed every 4 hours as needed for Wheezing/Shortness of Breath. - acetaminophen (TYLENOL) 500 mg tablet Take 2 tablets by mouth three times daily. - cholecalciferol (VITAMIN D3) 2,000 unit tablet Take 2 tablets by mouth once daily. Meds Comments as of 06/02/2016: Was taking Keflex/ had kidney stones. 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 Chalo Menjivar MD 08/28/2024 4:25 PM Signed Signed- Thank you! 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 - meloxicam (MOBIC) 15 mg tablet TAKE 1 TABLET BY MOUTH DAILY WITH FOOD FOR PAIN - DULoxetine (CYMBALTA) 60 mg capsule Take 1 capsule by mouth every afternoon. - dicyclomine (BENTYL) 20 mg tablet TAKE 1 TABLET BY MOUTH 3 TIMES A DAY FOR 30 DAYS - chlorthalidone (HYGROTON) 25 mg tablet Take 25 mg by mouth every morning. - Clindamycin Phosphate 1 % APPLY TO AFFECTED AREAS TWICE DAILY FOR FLARES - levothyroxine (SYNTHROID) 88 mcg tablet Take 88 mcg by mouth once daily. - omeprazole (PRILOSEC) 40 mg capsule Take 40 mg by mouth once daily. - albuterol HFA (PROVENTIL HFA, VENTOLIN HFA) 90 mcg/actuation inhaler Inhale 1 Puff as instructed every 4 hours as needed for Wheezing/Shortness of Breath. - acetaminophen (TYLENOL) 500 mg tablet Take 2 tablets by mouth three times daily. - cholecalciferol (VITAMIN D3) 2,000 unit tablet Take 2 tablets by mouth once daily. Facility-Administered Medications as of 08/29/2024 - denosumab 60 mg injection (PROLIA) Meds Comments as of 06/02/2016: Was taking Keflex/ had kidney stones. 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 - HYDROCHLOROTHIAZIDE 50 MG TAB (Discontinued) Take one(1) tablet daily Encounter Status:Closed by CHALO MENJIVAR on 08/28/24 [facility] ([id number]) 1940 F Date Time Provider Department 08/17/24 CHALO MENJIVAR During your visit today, we recorded the following information about you: Chalo Menjivar MD 08/17/2024 2:41 PM Signed Please Call patient if scenios note not read to review results/released to My Chart if tests completed at [facility]: normal labs. Continue same calcium and vitamin D intake with food. Happy to further review and discuss at follow up visit. Thank you. 09/04/24 due for prolia with nurse 08/16/24 normal calcium 10.1, vitamin D 45.8; 03/06/24 prolia with nurse 03/02/24 borderline calcium 10.3;normal rest of cmp, cbc, esr 13, crp 0.3, vitamin D 47.1, uric acid 3.7; Chalo Menjivar MD 08/19/2024 5:10 PM Addendum Please call patient Thank you for the update. The borderline calcium is likely from the water pill- will monitor with primary care provider. Not concerning :) Thank you. Josefina Nava, RN 08/21/2024 8:14 AM Signed Pt read [employer] Of [employer] message. Allergies As of Date: 08/17/2024 Noted Allergy Reaction PLAQUENIL (HYDROXYCHLOROQUINE) 06/28/2020 14 - Other: See Comments Comments: Eye changes on exam 06/2020 (unable to clarify if changes from macular degeneration) Date Reviewed: 06/29/2024 Reviewed by: Brando Shields MD - Fully Assessed Reason for Visit: Results [95] Prescriptions as of 08/21/2024 - prednisoLONE acetate (PRED FORTE) 1 % ophthalmic suspension USE 1 DROP IN BOTH EYES ONCE DAILY. - meloxicam (MOBIC) 15 mg tablet TAKE 1 TABLET BY MOUTH DAILY WITH FOOD FOR PAIN - DULoxetine (CYMBALTA) 60 mg capsule Take 1 capsule by mouth every afternoon. - dicyclomine (BENTYL) 20 mg tablet TAKE 1 TABLET BY MOUTH 3 TIMES A DAY FOR 30 DAYS - chlorthalidone (HYGROTON) 25 mg tablet Take 25 mg by mouth every morning. - Clindamycin Phosphate 1 % APPLY TO AFFECTED AREAS TWICE DAILY FOR FLARES - levothyroxine (SYNTHROID) 88 mcg tablet Take 88 mcg by mouth once daily. - omeprazole (PRILOSEC) 40 mg capsule Take 40 mg by mouth once daily. - anastrozole (ARIMIDEX) 1 mg tablet Take 1 mg by mouth once daily. - albuterol HFA (PROVENTIL HFA, VENTOLIN HFA) 90 mcg/actuation inhaler Inhale 1 Puff as instructed every 4 hours as needed for Wheezing/Shortness of Breath. - acetaminophen (TYLENOL) 500 mg tablet Take 2 tablets by mouth three times daily. - cholecalciferol (VITAMIN D3) 2,000 unit tablet Take 2 tablets by mouth once daily. - HYDROCHLOROTHIAZIDE 50 MG TAB Take one(1) tablet daily Meds Comments as of 06/02/2016: Was taking Keflex/ had kidney stones. 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 Sufficiency/Optimal Levels: 31-80 ng/mL Toxicity: > 100 ng/mL. Test performed by chemiluminescent immunoassay. Performed By: #### 1 989-3 ####[facility] LABCLIA [id number] [address] [facility] CALCIUM [facility]-NCon Calcium [Mass/Vol] 10.1 mg/dL 8.5 - 10. 2 mg/dL [facility] Specimen Type: BLOOD SPECIMEN Ordering Facility: [facility] Address: [address] [place] [address] Original Ordering Provider: CHALO MOY [facility]25 Calcium [Mass/Vol] 10.1 mg/dL Normal 8.5-10.2 [facility] Comment on above: Order Comment: Juan men Type: BLOOD SPECIMENOrdering Facility: [facility] Address: [address] [place] [address] Performed By: #### 1 7861-6 ####[facility] LABCLIA [id number] [place] [address] Trudy 08-10-2024 DERICK Telephone (TIFFANY) FANTASMA LEWIS ([id number]) 1940 F Date Time Provider Department 08/10/24 CHALO MENJIVAR During your visit today, we recorded the following information about you: Akhil EddieSwathi 08/10/2024 9:38 AM Signed Pt requesting to schedule next prolia injection. Patient has been identified by name and birthdate. Duration of symptoms: N/A Person calling: self Call patient at: on cell [phone] (home) [phone] (cell) Was an appointment scheduled: No Closing statement: Results or non-symptom based questions: Thank you for calling [facility], your call will be returned within the next business day. Swathideangelo Mariehannah Morgan Jewell Miller 08/10/2024 10:28 AM Signed Called pt regarding prolia injection where she advised that she doesn't feel that she needs another prolia injection. Patient demonstrated confusion on what the doctor's instructions were in regards to frequency of prolia injections. She is also scheduled for office visit on 10/23/2024. Advised patient I will send message to Dr. Menjivar to review this and that staff will follow up with her on cell phone at [phone] per her request. Please review and reach out to pt accordingly. Please reroute back to scheduling if further appointment needed. Chalo Menjivar MD 08/10/2024 2:43 PM Signed Please call patient/family Please remind patient osteoporosis treatment prolia injection is every 6months with nurse. Last prolia 02/2024. Please assist with scheduling. Thank you. Felicia Perry LPN 08/10/2024 2:58 PM Signed Patient has been scheduled. Allergies As of Date: 08/10/2024 Noted Allergy Reaction PLAQUENIL (HYDROXYCHLOROQUINE) 06/28/2020 14 - Other: See Comments Comments: Eye changes on exam 06/2020 (unable to clarify if changes from macular degeneration) Date Reviewed: 06/29/2024 Reviewed by: Brando Shields MD - Fully Assessed Reason for Visit: Patient Question [6907] Appointment [186] Prescriptions as of 08/10/2024 - prednisoLONE acetate (PRED FORTE) 1 % ophthalmic suspension USE 1 DROP IN BOTH EYES ONCE DAILY. - meloxicam (MOBIC) 15 mg tablet TAKE 1 TABLET BY MOUTH DAILY WITH FOOD FOR PAIN - DULoxetine (CYMBALTA) 60 mg capsule Take 1 capsule by mouth every afternoon. - dicyclomine (BENTYL) 20 mg tablet TAKE 1 TABLET BY MOUTH 3 TIMES A DAY FOR 30 DAYS - chlorthalidone (HYGROTON) 25 mg tablet Take 25 mg by mouth every morning. - Clindamycin Phosphate 1 % APPLY TO AFFECTED AREAS TWICE DAILY FOR FLARES - levothyroxine (SYNTHROID) 88 mcg tablet Take 88 mcg by mouth once daily. - omeprazole (PRILOSEC) 40 mg capsule Take 40 mg by mouth once daily. - anastrozole (ARIMIDEX) 1 mg tablet Take 1 mg by mouth once daily. - albuterol HFA (PROVENTIL HFA, VENTOLIN HFA) 90 mcg/actuation inhaler Inhale 1 Puff as instructed every 4 hours as needed for Wheezing/Shortness of Breath. - acetaminophen (TYLENOL) 500 mg tablet Take 2 tablets by mouth three times daily. - cholecalciferol (VITAMIN D3) 2,000 unit tablet Take 2 tablets by mouth once daily. - HYDROCHLOROTHIAZIDE 50 MG TAB Take one(1) tablet daily Meds Comments as of 06/02/2016: Was taking Keflex/ had kidney stones. 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 Normal [facility] MM screening mammo BI w/CADo n 06-26-2024 MM screening mammo BI w/CAD [facility] [address] [place] [address] Mammography Report Signed Patient: Fantasma Lewis MR#: [id number] : 1940 Acct:[id number] Age/Sex: 84 / F Adm Date: 06/26/24 Loc: Room: Type: [facility] Attending Dr: Elsa Siddiqui [employer] Ordering Provider: Elsa Siddiqui APRN Date of Service: 06/26/24 Procedure(s): MM screening mammo BI w/CAD Accession Number(s): ([id number]) MM/MM screening mammo BI w/CAD: 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 SCREENING [...] Quispe M.D. 06/26/2024 10:53 AM Dictation Location: [facility] Dictated By: Maynor Quispe MD 06/26/24 1037 Signed By: 06/26/24 1053 [facility] XR Abdomen 1 Viewon 04-20-19 25 XR Abdomen 1 View Exam Date/Time: 04/18/2024 12:05 EDT Reason for Exam: Kidney stone Report IMPRESSION: NONSPECIFIC ABDOMEN. CLINICAL HISTORY: Kidney stone COMPARISON: 11/21/2020. FINDINGS: Gas and stool in colon. Gas in small bowel. No diffuse small bowel dilatation. No masses or abnormal calcifications. Mild lumbar scoliosis with convexity right apex L1. Technical Comments: Radiation Dose: na Ordering Provider: Noe LOZA FINAL REPORT Dictated: 04/19/2024 11:52 am Signer Shay AGUAYO Signed (Electronic Signature): 04/19/2024 11:52 am Signed by: Shay Suero MD Transcribed by: MARY Technologist: KIERA Hernandez [facility] Urology Office/Clinic Noteon 04-18-2024 Urology Office/Clinic Note Urology Office/Clinic Note Chief Complaint 18 month follow up with KUB HPI Staff 18 month follow up with KUB. Previous Dx:HX of kidney stones. S/P ESWL 11/21/20. KUB done in IO 04/18/24. CT AP wo con 10/27/23 [facility]. Pt denies abdominal/flank pain. Denies hematuria, denies dysuria. Pt is up every 2 hours at night. Pt wears a pad a night. Pt has stress incontinence sometimes with coughing. History of Present Illness I have reviewed and verified the staff HPI to be accurate for this encounter. Portions of this record may have been created with voice recognition artificial intelligence software, specifically [employer] and or [employer]. Substitutions may have occurred due to the inherent limitations of voice recognition and artificial intelligence software. Review of Systems PHQ Score Initial Depression Screen Score: 0 SCORE Physical Exam Vitals & Measurements T: 37 ???C(Temporal Artery) HR: 96(Peripheral) RR: 16 BP: 148/88 HT: 63 in HT: 160 cm WT: 72 kg WT: 158.733 lb BMI: 28.13 General: Well developed, well nourished, in no acute distress. Assessment/Plan 1. Kidney stones (N20.0: Calculus of kidney) s/p left ESWL of 7 mm calculi 11/21/20 [facility] ER 12/03/21 due to R flank pain that radiated to RLQ. DOUG 12/03/21 - 9 mm nonobstructing nephrolith R kidney. CT AP w con 12/03/21 [facility] - 2 mm nonobstructive R renal calculi. KUB 11/13/22 [facility] - No visible urinary tract calculi CT AP wo con 10/27/23 at [facility] w/o mention of stones KUB completed IO today. On personal review of image, do not see any obvious significant stones. However, not a great image d/t bowel content. Will call pt if noting any stones on KUB radiologist read. She states she is drinking mostly water throughout the day. Unable to quantify. Also drinking 1 c of coffee every morning and an occasional 1/2 can of Pepsi. Discussed generalized stone prevention - pt encouraged to increase fluid intake so that he/she producing 2.5L of urine daily. Add 1/4 cup of lemon juice to water throughout the day or can also drink sugar free lemonade or clear soda. Avoid dark darrell. Restrict sodium intake. Restrict animal protein. Discussed potential for PRN f/u given stability of pt. She opts to f/u 18 mos w/ repeat KUB. If no stone event in the meantime, consider PRN f/u Increase fluid intake, avoid bladder irritants ER for fever, NV, severe flank pain, inability to urinate -18 mos f/u w/ KUB 2. History of UTI (Z87.440: Personal history of urinary (tract) infections) UCX: 10/27/23 - neg 11/04/23 - neg pt reports episode of UTI in Oct 2023 that required multiple abx, ER visit. UA today w/ small leuks. Denies sxs of UTI. Pt to contact office if experiencing UTI sxs. Follow-up With When Contact Information Arias GUPTA, ALLYN, Silvia X, FAM, URL Additional Instructions: 18 mos KUB Patient Education Dietary Guidelines to Help Prevent Kidney Stones Kidney Stones, [id number] Problem List/Past Medical History Ongoing Arthritis Epididymitis Essential hypertension Gout History of kidney stones Hypothyroid Kidney [...] Total knee arthroplasty, Total knee arthroplasty. Medications chlorthalidone 25 mg Tab, 25 mg= 1 tab(s), Oral, Daily Cymbalta, 60 mg, Oral, Daily losartan 100 mg Tab, 100 mg= 1 tab(s), Oral, Daily meloxicam 15 mg oral tablet, 15 mg= 1 tab(s), Oral, Daily prednisoLONE Opth acetate 1% Susp 5 mL, 1 drop(s), Eye-Right, TID Prilosec, 80 mg, Oral, Daily Synthroid, 88 mcg, Oral, Daily Vitamin D, 4000 IU, Oral, Daily Allergies No Known Allergies Social History Alcohol - Low Risk, 11/05/2020 Current. Wine. 1-2 times per year., 04/15/2024 Substance Abuse - Denies Substance Abuse, 11/08/2020 Tobacco - Denies Tobacco Use, 11/21/2020 quit 50 years Tobacco Use:. Never Smokeless Tobacco Use:. Cigarettes, 04/18/2024 Family History Diabetes mellitus: Mother. Hyperlipidemia: Mother. Hypertension: Mother and Father. Kidney stones: Brother. Migraines: Mother, Sister and Brother. Primary malignant neoplasm of female breast: Grandparent. Immunizations Vaccine Date Status Comments SARS-CoV-2 (COVID-19) mRNAMUL.ORD![id number] 01/23/2022 Recorded influenza virus vaccine, inactivated 12/19/2021 Recorded SARS-CoV-2 (COVID-19) mRNA BNT-162b2 vax 12/25/2020 Recorded SARS-CoV-2 (COVID-19) mRNA BNT-162b2 vax 03/29/2020 Recorded 2021-11-18: [id number] SARS-CoV-2 (COVID-19) mRNA-1273 vaccine 03/2020 Recorded SARS-CoV-2 (COVID-19) mRNA BNT-162b2 vax 03/08/2020 Re (more content not included)... Normal [facility] Comment on above: Result Comment: Elec tronically Signed By: ALLYN Bianchi APRN, [place] X\.br\Date and Time Signed: 04/18/24 13:57 EDT AVASTIN (BEVACIZUMAB) 1.25MG INTRAVITREAL INJECTION OD (RIGHT EYE)on 04-06-2024 [facility] AVASTIN (BEVACIZUMAB) 1.25MG INTRAVITREAL INJECTION OS (LEFT EYE)on 04-06-2024 [facility] OCT MACULA CIRRUS OU (BOTH E YES)on 04-06-2024 [facility] Radiology Study observation (narrative) Taylor Khan XR Hip - right 3 Viewson XR HIP 2 OR 3 VW RIG HT Reason for exam: Lateral and posterior pain right hip for two years, no injury Views: 3 Findings: The alignment is normal. No fracture, dislocation or other acute pathology is demonstrated. There is degenerative spurring at the femoral articular margin. No significant joint space narrowing. No soft tissue abnormalities are seen. Impression: Bilateral hip joint osteoarthritis without significant joint space narrowing. Dictated on: 2024 8:10 AM This report has been electronically signed and approved by the interpreting Radiologist. IMAGING Fernando Keita MD - 2024 XR HIP 2 OR 3 VW RIGHT Reason for exam: Lateral and posterior pain right hip for two years, no injury Views: 3 Findings: The alignment is normal. No fracture, dislocation or other acute pathology is demonstrated. There is degenerative spurring at the femoral articular margin. No significant joint space narrowing. No soft tissue abnormalities are seen. Impression: Bilateral hip joint osteoarthritis without significant joint space narrowing. Dictated on: 2024 8:10 AM This report has been electronically signed and approved by the interpreting Radiologist. [employer] XR Shoulder - right 2 Viewso n 2024 XR SHOULDER 2+ VIEWS RIGHT Reason for exam: Anterior right shoulder pain down anterior humberus for one month, no injury Views: 2 Findings: The alignment is normal. No fracture, dislocation or other acute pathology is demonstrated. No soft tissue abnormalities are seen. Impression: Negative exam. Dictated on: 2024 8:09 AM This report has been electronically signed and approved by the interpreting Radiologist. IMAGING Fernando Keita MD - 2024 XR SHOULDER 2+ VIEWS RIGHT Reason for exam: Anterior right shoulder pain down anterior humberus for one month, no injury Views: 2 Findings: The alignment is normal. No fracture, dislocation or other acute pathology is demonstrated. No soft tissue abnormalities are seen. Impression: Negative exam. Dictated on: 2024 8:09 AM This report has been electronically signed and approved by the interpreting Radiologist. [employer] XR Shoulder - right 2 ViewsO rdered By: Fernando Keita on 2024 [employer] Work Phone: No Panel Informationon 03-08 Radiology Study observation (narrative) [facility] XR HIP 2 OR 3 VW RIGHTon XR HIP 2 OR 3 VW RIGHT XR HIP 2 OR 3 VW RIGHT Reason for exam: Lateral and posterior pain right hip for two years, no injury Views: 3 Findings: The alignment is normal. No fracture, dislocation or other acute pathology is demonstrated. There is degenerative spurring at the femoral articular margin. No significant joint space narrowing. No soft tissue abnormalities are seen. Impression: Bilateral hip joint osteoarthritis without significant joint space narrowing. Dictated on: 2024 8:10 AM This report has been electronically signed and approved by the interpreting Radiologist. Normal Not Available XR SHOULDER 2+ VIEWS RIGHTon 03-08-2024 XR SHOULDER 2+ VIEWS RIGHT XR SHOULDER 2+ VIEWS RIGHT Reason for exam: Anterior right shoulder pain down anterior humberus for one month, no injury Views: 2 Findings: The alignment is normal. No fracture, dislocation or other acute pathology is demonstrated. No soft tissue abnormalities are seen. Impression: Negative exam. Dictated on: 2024 8:09 AM This report has been electronically signed and approved by the interpreting Radiologist. Normal Not Available CNNURSEon 03-06-2024 CNNURSE Nurse Visit (TIFFANY) FANTASMA LEWIS ([id number]) 1940 F Date Time Provider Department 03/06/24 11:30 AM NURSE [facility] NALINI ALLEN During your visit today, we recorded the following information about you: Referring Provider: CHALO MENJIVAR [[id number]] Allergies As of Date: 03/06/2024 Noted Allergy Reaction PLAQUENIL (HYDROXYCHLOROQUINE) 06/28/2020 14 - Other: See Comments Comments: Eye changes on exam 06/2020 (unable to clarify if changes from macular degeneration) Date Reviewed: 03/06/2024 Reviewed by: Felicia Perry LPN - Fully Assessed Reason for Visit: Allied Health Visit [5] Cmt: Prolia injection 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 - DULoxetine (CYMBALTA) 60 mg capsule take 1 capsule by mouth daily - chlorthalidone (HYGROTON) 25 mg tablet Take 25 mg by mouth every morning. - Clindamycin Phosphate 1 % APPLY TO AFFECTED AREAS TWICE DAILY FOR FLARES - levothyroxine (SYNTHROID) 88 mcg tablet Take 88 mcg by mouth once daily. - omeprazole (PRILOSEC) 40 mg capsule Take 40 mg by mouth once daily. - anastrozole (ARIMIDEX) 1 mg tablet Take 1 mg by mouth once daily. - albuterol HFA (PROVENTIL HFA, VENTOLIN HFA) 90 mcg/actuation inhaler Inhale 1 Puff as instructed every 4 hours as needed for Wheezing/Shortness of Breath. - acetaminophen (TYLENOL) 500 mg tablet Take 2 tablets by mouth three times daily. - cholecalciferol (VITAMIN D3) 2,000 unit tablet Take 2 tablets by mouth once daily. - HYDROCHLOROTHIAZIDE 50 MG TAB Take one(1) tablet daily Meds Comments as of 06/02/2016: Was taking Keflex/ had kidney stones. 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 Continue same vitamin D intake with food. Recheck nonfasting labs in 6months with prolia visit.The orders have been placed. Happy to further review and discuss at follow up visit. Thank you. 03/02/24 borderline calcium 10.3;normal rest of cmp, cbc, esr 13, crp 0.3, vitamin D 47.1, uric acid 3.7; Carly Butts MA 03/06/2024 7:53 AM Signed Pt was notified via . 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 - DULoxetine (CYMBALTA) 60 mg capsule take 1 capsule by mouth daily - chlorthalidone (HYGROTON) 25 mg tablet Take 25 mg by mouth every morning. - Clindamycin Phosphate 1 % APPLY TO AFFECTED AREAS TWICE DAILY FOR FLARES - levothyroxine (SYNTHROID) 88 mcg tablet Take 88 mcg by mouth once daily. - omeprazole (PRILOSEC) 40 mg capsule Take 40 mg by mouth once daily. - anastrozole (ARIMIDEX) 1 mg tablet Take 1 mg by mouth once daily. - albuterol HFA (PROVENTIL HFA, VENTOLIN HFA) 90 mcg/actuation inhaler Inhale 1 Puff as instructed every 4 hours as needed for Wheezing/Shortness of Breath. - acetaminophen (TYLENOL) 500 mg tablet Take 2 tablets by mouth three times daily. - cholecalciferol (VITAMIN D3) 2,000 unit tablet Take 2 tablets by mouth once daily. - HYDROCHLOROTHIAZIDE 50 MG TAB Take one(1) tablet daily Facility-Administered Medications as of 03/06/2024 - denosumab 60 mg injection (PROLIA) Meds Comments as of 06/02/2016: Was taking Keflex/ had kidney stones. 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 Sufficiency/Optimal Levels: 31-80 ng/mL Toxicity: > 100 ng/mL. Test performed by chemiluminescent immunoassay. Performed By: #### 1 989-3 ####[facility] LABCLIA [id number] [address] [facility] CBC panel Auto (Bld)on 03-02 Erythrocyte distribution width (RBC) [Ratio] 13.1 % Normal 11.5-15.0 [facility] Comment on above: Order Comment: Speci men Type: BLOOD SPECIMENOrdering Facility: [facility] Address: [address] [place] [address] Performed By: #### 5 8410-2 ####[facility] LABCLIA [id number] [place] [address] Hematocrit (Bld) [Volume fraction] 41.9 % Normal 36.0-46.0 [facility] Comment on above: Order Comment: Speci men Type: BLOOD SPECIMENOrdering Facility: [facility] Address: [address] [place] [address] Performed By: #### 5 8410-2 ####[facility] LABCLIA [id number] [place] [address] Hemoglobin (Bld) [Mass/Vol] 13.5 g/dL Normal 11.5-15.5 [facility] Comment on above: Order Comment: Speci men Type: BLOOD SPECIMENOrdering Facility: [facility] Address: [address] [place] [address] Performed By: #### 5 8410-2 ####[facility] LABCLIA [id number] [place] [address] MCH (RBC) [Entitic mass] 31.5 pg Normal 26.0-34.0 [facility] Comment on above: Order Comment: Speci men Type: BLOOD SPECIMENOrdering Facility: [facility] Address: [address] [place] [address] Performed By: #### 5 8410-2 ####[facility] LABCLIA [id number] [place] [address] MCHC (RBC) [Mass/Vol] 32.2 g/dL Normal 30.5-36.0 [facility] Comment on above: Order Comment: Speci men Type: BLOOD SPECIMENOrdering Facility: [facility] Address: [address] [place] [address] Performed By: #### 5 8410-2 ####[facility] LABCLIA [id number] [place] [address] MCV (RBC) [Entitic vol] 97.7 fL Normal 80.0-100.0 [facility] Comment on above: Order Comment: Speci men Type: BLOOD SPECIMENOrdering Facility: [facility] Address: [address] [place] [address] Performed By: #### 5 8410-2 ####[facility] LABCLIA [id number] [place] [address] Nucleated RBC (Bld) [#/Vol] 10*3/uL Normal <0.01 [facility] Comment on above: Order Comment: Speci men Type: BLOOD SPECIMENOrdering Facility: [facility] Address: [address] [place] [address] Performed By: #### 5 8410-2 ####[facility] LABIA [id number] [place] [address] Platelet mean volume (Bld) [Entitic vol] 9.7 fL Normal 9.0-12.7 [facility] Comment on above: Order Comment: Speci men Type: BLOOD SPECIMENOrdering Facility: [facility] Address: [address] [place] [address] Performed By: #### 5 8410-2 ####[facility] LABCLIA [id number] [place] [address] Platelets (Bld) [#/Vol] 349 10*3/uL Normal 150-400 [facility] Comment on above: Order Comment: Speci men Type: BLOOD SPECIMENOrdering Facility: [facility] Address: [address] [place] [address] Performed By: #### 5 8410-2 ####[facility] LABCLIA [id number] [place] [address] RBC (Bld) [#/Vol] 4.29 10*6/uL Normal 3.90-5.20 [facility] Comment on above: Order Comment: Speci men Type: BLOOD SPECIMENOrdering Facility: [facility] Address: [address] [place] [address] Performed By: #### 5 8410-2 ####[facility] LABIA [id number] [place] [address] WBC (Bld) [#/Vol] 8.78 10*3/uL Normal 3.70-11.00 [facility] Comment on above: Order Comment: Speci men Type: BLOOD SPECIMENOrdering Facility: [facility] Address: [address] [place] [address] Performed By: #### 5 8410-2 ####[facility] LABIA [id number] [place] [address] [facility] CBC PNL BLD AUTOon 03-02 [facility] NRBC # BLD AUTO <0.01 N[facility] PLATELET # BLD AUTO [address] [facility] PMV BLD AUTO 9.7 fL 9.0 - 12.7 fL [facility] WBC # BLD AUTO 8.78 [facility] Erythrocyte distribution width (RBC) [Ratio] 13.1 % 11.5 - 15.0 % [facility] Hematocrit (Bld) [Volume fraction] 41.9 % 36.0 - 46.0 % [facility] Hemoglobin (Bld) [Mass/Vol] 13.5 g/dL 11.5 - 15.5 g/dL [facility] MCH (RBC) [Entitic mass] 31.5 pg 26.0 - 34.0 pg [facility] MCHC (RBC) [Mass/Vol] 32.2 g/dL 30.5 - 36.0 g/dL [facility] MCV (RBC) [Entitic vol] 97.7 fL 80.0 - 100.0 fL [facility] RBC (Bld) [#/Vol] 4.29 10*6/uL 3.90 - 5.2 0 m/uL [facility] Specimen Type: BLOOD SPECIMEN [facility] Address: [address] [place] [address] Original Ordering Provider: CHALO MOY [facility] CRP SerPl-mCncon 03-02-2024 CRP [Mass/Vol] 0.3 mg/dL Normal <0.9 [facility] Comment on above: Order Comment: Speci men Type: BLOOD SPECIMENOrdering Facility: [facility] Address: [address] [place] [address] Performed By: #### 1 988-5 ####[facility] LABCLIA [id number] [place] [address] [facility] Comprehensive metabolic 2000 panelon 03-02-2024 Albumin [Mass/Vol] 4.3 g/dL Normal 3.9-4.9 [facility] Comment on above: Order Comment: Speci men Type: BLOOD SPECIMENOrdering Facility: [facility] Address: [address] [place] [address] Performed By: #### 3 084-1, 32166-3 ####[facility] LABCLIA [id number] [place] [address] ALP [Catalytic activity/Vol] 85 U/L Normal 34-123 [facility] Comment on above: Order Comment: Speci men Type: BLOOD SPECIMENOrdering Facility: [facility] Address: [address] [place] [address] Performed By: #### 3 084-1, 46493-8 ####[facility] LABCLIA [id number] [place] [address] ALT [Catalytic activity/Vol] 5 U/L Low 7-38 [facility] Comment on above: Order Comment: Speci men Type: BLOOD SPECIMENOrdering Facility: [facility] Address: [address] [place] [address] Performed By: #### 3 084-1, ####[facility] LABCLIA [id number] [place] [address] Anion gap [Moles/Vol] 10 mmol/L Normal 8-15 [facility] Comment on above: Order Comment: Speci men Type: BLOOD SPECIMENOrdering Facility: [facility] Address: [address] [place] [address] Performed By: #### 3 084-1, ####[facility] LABCLIA [id number] [place] [address] AST [Catalytic activity/Vol] 10 U/L Low 13-35 [facility] Comment on above: Order Comment: Speci men Type: BLOOD SPECIMENOrdering Facility: [facility] Address: [address] [place] [address] Performed By: #### 3 084-1, ####[facility] LABCLIA [id number] [place] [address] Bilirubin [Mass/Vol] 0.3 mg/dL Normal 0.2-1.3 [facility] Comment on above: Order Comment: Speci men Type: BLOOD SPECIMENOrdering Facility: [facility] Address: [address] [place] [address] Performed By: #### 3 084-1, ####[facility] LABCLIA [id number] [place] [address] Calcium [Mass/Vol] 10.3 mg/dL High 8.5-10.2 [facility] Comment on above: Order Comment: Speci men Type: BLOOD SPECIMENOrdering Facility: [facility] Address: [address] [place] [address] Performed By: #### 3 084-1, 90009-8 ####[facility] LABCLIA [id number] [place] [address] Chloride [Moles/Vol] 98 mmol/L Normal 98-107 [facility] Comment on above: Order Comment: Speci men Type: BLOOD SPECIMENOrdering Facility: [facility] Address: [address] [place] [address] Performed By: #### 3 084-1, 79091-0 ####[facility] LABCLIA [id number] [place] [address] CO2 [Moles/Vol] 32 mmol/L High 22-30 [facility] Comment on above: Order Comment: Speci men Type: BLOOD SPECIMENOrdering Facility: [facility] Address: [address] [place] [address] Performed By: #### 3 084-1, 87463-8 ####[facility] LABCLIA [id number] [place] [address] Creatinine [Mass/Vol] 0.85 mg/dL Normal 0.58-0.96 [facility] Comment on above: Order Comment: Speci men Type: BLOOD SPECIMENOrdering Facility: [facility] Address: [address] [place] [address] Performed By: #### 3 084-1, 10520-6 ####[facility] LABCLIA [id number] [place] [address] Creatinine and Glomerular filtration rate.predicted panel (S/P/Bld) 69 mL/min/1.73m??? Normal >=60 [facility] Comment on above: Order Comment: Speci men Type: BLOOD SPECIMENOrdering Facility: [facility] Address: [address] [place] [address] Result Comment: Sondra mated Glomerular Filtration Rate [...] accurately reflect actual GFR. Performed By: #### 3 084-1, 86669-5 ####[facility] LABCLIA [id number] [place] [address] Glucose [Mass/Vol] 94 mg/dL Normal 74-99 [facility] Comment on above: Order Comment: Juan mondragon Type: BLOOD SPECIMENOrdering Facility: [facility] Address: [address] [place] [address] Result Comment: The [place] Diabetes Association (ADA) provides guidance for cutoff [...] Standards of Medical Care in Diabetes 2016, [place] [employer]. Diabetes Care. 2016.39(Suppl 1). Performed By: #### 3 084-1, 31451-4 ####[facility] LABCLIA [id number] [place] [address] Potassium [Moles/Vol] 4.0 mmol/L Normal 3.7-5.1 [facility] Comment on above: Order Comment: Juan mondragon Type: BLOOD SPECIMENOrdering Facility: [facility] Address: [address] [id number] Performed By: #### 3 084-1, 58135-5 ####[facility] LABCLIA [id number] [place] [address] Protein [Mass/Vol] 6.5 g/dL Normal 6.3-8.0 [facility] Comment on above: Order Comment: Speci men Type: BLOOD SPECIMENOrdering Facility: [facility] Address: [address] [place] [address] Performed By: #### 3 084-1, 02993-7 ####[facility] LABCLIA [id number] [place] [address] Sodium [Moles/Vol] 140 mmol/L Normal 136-144 [facility] Comment on above: Order Comment: Speci men Type: BLOOD SPECIMENOrdering Facility: [facility] Address: [address] [place] [address] Performed By: #### 3 084-1, 43063-6 ####[facility] LABCLIA [id number] [place] [address] Urea nitrogen [Mass/Vol] 14 mg/dL Normal 7-21 [facility] Comment on above: Order Comment: Speci men Type: BLOOD SPECIMENOrdering Facility: [facility] Address: [address] [place] [address] Performed By: #### 3 084-1, 09470-9 ####[facility] LABCLIA [id number] [place] [address] ESR Westergren method (Bld) [Velocity]on 03-02-2024 ESR (Bld) [Velocity] 13 mm/h Normal 0-20 [facility] Comment on above: Order Comment: Speci men Type: BLOOD SPECIMENOrdering Facility: [facility] Address: [address] [place] [address] Performed By: #### 4 537-7 ####[facility] LABCLIA [id number] [place] [address] [place] Urate SerPl-mCncon Urate [Mass/Vol] 3.7 mg/dL Normal 2.5-6.6 Taylor ospina [facility] Comment on above: Order Comment: Speci men Type: BLOOD SPECIMENOrdering Facility: [facility] Address: [address] [place] [address] Performed By: #### 3 084-1, 05277-5 ####[facility] LABCLIA [id number] [place] [address] No Panel Informationon 01-26 ACINETOBACTER BAUMANII 0 NO [facility] ACINETOBACTER BAUMANII Not detected [facility] NATHALIE ALBICANS, PARAPSILOSIS, TROPICALIS 0 [facility] NATHALIE ALBICANS, PARAPSILOSIS, TROPICALIS Not detected [facility] NATHALIE GLABRATA 0 [facility] NATHALIE GLABRATA Not detected [facility] NATHALIE KRUSEI 0 [facility] NATHALIE KRUSEI Not detected [facility] CITROBACTER FREUNDII 0 [facility] CITROBACTER FREUNDII Not detected NO [facility] ENTEROBACTER AEROGENES, CLOACAE 0 [facility] ENTEROBACTER AEROGENES, CLOACAE Not detected [facility] ENTEROCOCCUS FAECALIS, FAECIUM 0 [facility] ENTEROCOCCUS FAECALIS, FAECIUM Not detected [facility] ESCHERICHIA COLI 0 [facility] ESCHERICHIA COLI Not detected [facility] KLEBSIELLA PNEUMONIAE, OXYTOCA 0 [facility] KLEBSIELLA PNEUMONIAE, OXYTOCA Not detected [facility] MORGANELLA MORGANII 0 [facility] MORGANELLA MORGANII Not detected [facility] PROTEUS MIRABILIS, VULGARIS 0 [facility] PROTEUS MIRABILIS, VULGARIS Not detected [facility] PSEUDOMONAS AERUGINOSA 0 [facility] PSEUDOMONAS AERUGINOSA Not detected [facility] SERRATIA MARCESCENS 0 [facility] SERRATIA MARCESCENS Not detected [facility] STAPHYLOCOCCUS AUREUS 0 [facility] STAPHYLOCOCCUS AUREUS Not detected [facility] STAPHYLOCOCCUS EPIDERMIDIS, HAEMOLYTICUS, LUGDUNENSIS, SAPROPHYTICUS (URINA 0 [facility] STAPHYLOCOCCUS EPIDERMIDIS, HAEMOLYTICUS, LUGDUNENSIS, SAPROPHYTICUS (URINA Not detected [facility] STREPTOCOCCUS AGALACTIAE (GROUP B STREP) 0 [facility] STREPTOCOCCUS AGALACTIAE (GROUP B STREP) Not detected [facility] STREPTOCOCCUS PYOGENES (GROUP A STREP) 0 [facility] STREPTOCOCCUS PYOGENES (GROUP A STREP) Not detected [facility] Laboratory - Chemistry and C hemistry - challengeon 01-26-2024 Bilirubin Ql (U) Negative Negative [facility] Glucose [Mass/Vol] Negative Negative [facility] Ketones Ql (U) Negative Negative [facility] pH (U) 6 [pH] 5.0 - 6.0 [facility] Specific gravity (U) [Rel density] 1.005 1.001 - 1.035 [facility] Urobilinogen (U) [Mass/Vol] 0.2 mg/dL 0.2 - 1.0 [facility] Laboratory - Hematology and Cell countson 01-26-2024 Hemoglobin Ql (U) Negative Negative [facility] Laboratory - Urinalysison Nitrite Ql (U) Negative Negative [facility] Protein Ql (U) Negative Negative [facility] No Panel Informationon 01-25 Interpretation and review of laboratory results Abnormal [facility] LEUKOCYTES 3+ Negative [facility] AVASTIN (BEVACIZUMAB) 1.25MG INTRAVITREAL INJECTION OD (RIGHT EYE)on 01-20-2024 [facility] AVASTIN (BEVACIZUMAB) 1.25MG INTRAVITREAL INJECTION OS (LEFT EYE)on 01-20-2024 [facility] OCT MACULA CIRRUS OU (BOTH E YES)on 01-20-2024 [facility] Radiology Study observation (narrative) [facility] Laboratory - Microbiology an d Antimicrobial susceptibilityon 01-12-2024 SARS-CoV-2 (COVID-19) RNA LYDIA+probe Ql (Unsp spec) Negative [facility] No Panel Informationon 01-11 FLU A Negative [facility] FLU B Negative [facility] Interpretation and review of laboratory results Normal [facility] CNOVon 11-29-2023 CNOV Office Visit (TIFFANY ) FANTASMA LEWIS ([id number]) 1940 F Date Time Provider Department 11/29/23 12:00 PM CHALO MENJIVAR During your visit today, we recorded the following information about you: Pulse Blood pressure Weight 96/minute 131/82 70.7 kg Chalo Menjivar MD 11/29/2023 11:39 AM Signed May apply over the counter arthritis [...] prolia due every 6months, prior prolia 08/31/22, 03/05/23, 09/03/23 Next bone mineral density after 09/01/24 nonfasting labs as scheduled Thank you. 07/13/23 normal vitamin D 46.2; 03/05/23 low vitamin D 28.1;high glucose 137;normal cbc, cmp, esr 5, crp 0.4; [facility] 09/01/22 bmd osteopenia/stable BONE MINERAL DENSITY PATIENT INSTRUCTIONS Bone mineral density testing measures the amount of calcium in certain parts of your bones. This information determines how strong your bones are. The test is used to detect osteoporosis, a disease in which the bone's mineral content and density are low, increasing a person's risk of fractures. The lumbar spine (lower back) and the hip are the skeletal sites usually examined. For the test, remember that: 1. You cannot take this test if you are . 2. Eat a normal diet on the day of the test. 3. Take your medications as you normally would. 4. DO NOT take calcium supplements (such as Tums) for 24 hours before the test. 5. On the day of the test, leave valuables (jewelry or credit cards) at home. 6. The test should be performed prior to oral, rectal or IV contrast studies, or at least 7 days after any of these studies. For the test, you may be asked to wear a hospital gown. You will lie on your back, on a padded table, in a comfortable position. Generally, you can resume your usual activities immediately. Chalo Menjivar MD 11/29/2023 12:48 PM Addendum Face to face Follow up for rheumatoid arthritis/pseudogout/ degenerative joint disease/joint pain/psoriasis/clinica l osteoporosis Today's visit 11/29/23:labs due 3months. Prolia due 02/2024. Bmd after 09/01/24.Did fine with last prolia 09/03/23. No dental work planned. Not taking antibiotics. No signs or symptoms of infection. Much better mood lately. taking tylenol, arimidex, chlorthalidone, vitamin D 4000 International Units daily with food, cymbalta 60mg daily. off vitamin b12. NO recent oral steroids. Tibial area psoriasis. NO pseudogout. 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 Stable PIPs swelling. Chronic current pain in upper arms R>L, back, knees, hips, feet. Better with activity. Pain bothers her at night. Reports pain 5-8/10. Has minimal AM stiffness. Enjoys spending time with her great grandson. Feels safe at home. Has enough food, [...] Last visit supportive care, restart fall precautions, see vestibular PT for vertigo care, limit basement visits, use cane everywhere, see neurosurgery, tolerating prolia every 6months 03/05/23 since missed/intolerant of weekly fosa (more content not included)... Normal [facility] AVASTIN (BEVACIZUMAB) 1.25MG INTRAVITREAL INJECTION OD (RIGHT EYE)on 11-11-2023 [facility] AVASTIN (BEVACIZUMAB) 1.25MG INTRAVITREAL INJECTION OS (LEFT EYE)on 11-11-2023 [facility] OCT MACULA CIRRUS OU (BOTH E YES)on 11-11-2023 [facility] Radiology Study observation (narrative) [facility] C. DIFFICILE PCRon C. DIFFICILE PCR Negative NEGATIVE [facility], ROUTINEon Bacteria identified Cx Nom (U) Urine Culture, Routine [facility] Bacteria identified Cx Nom (U) Mixed urogenital nola [facility] Bacteria identified Cx Nom (U) Less than 10,000 colonies/mL [facility] Bacteria identified Cx Nom (U) [facility] Cx Nom (U) [address] [place] [address], [place] [id number] [facility] Bacteria identified Cx Nom (U) [employer] Ass[employer] Accountant: Kev Choi PhD, Phone: [phone] [facility] - Chemistry and C hemistry - challengeon 10-27-2023 Bilirubin Ql (U) Negative [facility] Glucose [Mass/Vol] Negative [facility] Ketones Ql (U) Negative [facility] pH (U) 6.0 [pH] [facility] Specific gravity (U) [Rel density] 1.015 [facility] Urobilinogen (U) [Mass/Vol] 0.2 mg/dL [facility] Laboratory - Hematology and Cell countson 10-27-2023 Hemoglobin Ql (U) Negative [facility] Laboratory - Urinalysison Nitrite Ql (U) Negative [facility] Protein Ql (U) 15mg [facility] No Panel Informationon 10-26 Interpretation and review of laboratory results Abnormal [facility] LEUKOCYTES Positive [facility] No Panel Informationon 10-18 ACINETOBACTER BAUMANII 0.000 NO [facility] ACINETOBACTER BAUMANII Not detected [facility] NATHALIE ALBICANS, PARAPSILOSIS, TROPICALIS 0.000 [facility] NATHALIE ALBICANS, PARAPSILOSIS, TROPICALIS Not detected [facility] NATHALIE GLABRATA 0.000 [facility] NATHALIE GLABRATA Not detected [facility] NATHALIE KRUSEI 0.000 [facility] NATHALIE KRUSEI Not detected [facility] CITROBACTER FREUNDII 0.000 [facility] CITROBACTER FREUNDII Not detected NO [facility] ENTEROBACTER AEROGENES, CLOACAE 0.000 [facility] ENTEROBACTER AEROGENES, CLOACAE Not detected [facility] ENTEROCOCCUS FAECALIS, FAECIUM 0.000 [facility] ENTEROCOCCUS FAECALIS, FAECIUM Not detected [facility] ESCHERICHIA COLI 0.000 [facility] ESCHERICHIA COLI Not detected [facility] KLEBSIELLA PNEUMONIAE, OXYTOCA 0.000 [facility] KLEBSIELLA PNEUMONIAE, OXYTOCA Not detected [facility] MORGANELLA MORGANII 0.000 [facility] MORGANELLA MORGANII Not detected [facility] PROTEUS MIRABILIS, VULGARIS 0.000 [facility] PROTEUS MIRABILIS, VULGARIS Not detected [facility] PSEUDOMONAS AERUGINOSA 0.000 NO [facility] PSEUDOMONAS AERUGINOSA Not detected [facility] SERRATIA MARCESCENS 0.000 [facility] SERRATIA MARCESCENS Not detected [facility] STAPHYLOCOCCUS AUREUS 0.000 [facility] STAPHYLOCOCCUS AUREUS Not detected [facility] STAPHYLOCOCCUS EPIDERMIDIS, HAEMOLYTICUS, LUGDUNENSIS, SAPROPHYTICUS (URINA 0.000 [facility] STAPHYLOCOCCUS EPIDERMIDIS, HAEMOLYTICUS, LUGDUNENSIS, SAPROPHYTICUS (URINA Not detected [facility] STREPTOCOCCUS AGALACTIAE (GROUP B STREP) 0.000 [facility] STREPTOCOCCUS AGALACTIAE (GROUP B STREP) Not detected [facility] STREPTOCOCCUS PYOGENES (GROUP A STREP) 0.000 [facility] STREPTOCOCCUS PYOGENES (GROUP A STREP) Not detected [facility] Laboratory - Chemistry and C hemistry - challengeon 10-18-2023 Bilirubin Ql (U) Negative [facility] Glucose [Mass/Vol] Negative [facility] Ketones Ql (U) Negative [facility] pH (U) 6.0 [pH] [facility] Specific gravity (U) [Rel density] 1.020 [facility] Urobilinogen (U) [Mass/Vol] 0.1973457 mg/dL [facility] Laboratory - Hematology and Cell countson 10-18-2023 Hemoglobin Ql (U) Negative [facility] Laboratory - Urinalysison Nitrite Ql (U) Negative [facility] Protein Ql (U) Negative [facility] No Panel Informationon 10-17 Interpretation and review of laboratory results Abnormal [facility] LEUKOCYTES 1+ [facility] AVASTIN (BEVACIZUMAB) 1.25MG INTRAVITREAL INJECTION OD (RIGHT EYE)on 09-16-2023 [facility] AVASTIN (BEVACIZUMAB) 1.25MG INTRAVITREAL INJECTION OS (LEFT EYE)on 09-16-2023 [facility] OCT MACULA CIRRUS OU (BOTH E YES)on 09-16-2023 [facility] Radiology Study observation (narrative[facility] AVASTIN (BEVACIZUMAB) 1.25MG INTRAVITREAL INJECTION OD (RIGHT EYE)on 08-05-2023 [facility] AVASTIN (BEVACIZUMAB) 1.25MG INTRAVITREAL INJECTION OS (LEFT EYE)on 08-05-2023 [facility] OCT MACULA CIRRUS OU (BOTH E YES)on 08-05-2023 [facility] Radiology Study observation (narrative) [facility] AVASTIN (BEVACIZUMAB) 1.25MG INTRAVITREAL INJECTION OD (RIGHT EYE)on 07-01-2023 [facility] AVASTIN (BEVACIZUMAB) 1.25MG INTRAVITREAL INJECTION OS (LEFT EYE)on 07-01-2023 [facility] OCT MACULA CIRRUS OU (BOTH E YES)on 07-01-2023 [facility] Radiology Study observation (narrative) [facility] AVASTIN (BEVACIZUMAB) 1.25MG INTRAVITREAL INJECTION OD (RIGHT EYE)on 06-03-2023 [facility] AVASTIN (BEVACIZUMAB) 1.25MG INTRAVITREAL INJECTION OS (LEFT EYE)on 06-03-2023 [facility] OCT MACULA CIRRUS OU (BOTH E YES)on 06-03-2023 [facility] Radiology Study observation (narrative) [facility] ECG 12 Leadon 12-08-2022 Normal sinus rhythm Normal EKG QTc 425 ms [facility] Work Phone: Alanine aminotransferase [En zymatic activity/volume] in Serum or PlasmaOrdered By: Prasanth Bai on 09-02-2022 ALT [Catalytic activity/Vol] 7 U/L 7-52 [facility] Albumin [Mass/volume] in Ser um or Plasma by Bromocresol green (BCG) dye binding methoOrdered By: Prasanth Bai on 09-02-2022 Albumin BCG dye [Mass/Vol] 4.2 g/dL 3.5-5.7 [facility] Alkaline phosphatase [Enzyma tic activity/volume] in Serum or PlasmaOrdered By: Prasanth Bai on 09-02-2022 ALP [Catalytic activity/Vol] 83 U/L 34-104 [facility] Aspartate aminotransferase [ Enzymatic activity/volume] in Serum or PlasmaOrdered By: Prasanth Bai on 09-02-2022 AST [Catalytic activity/Vol] 13 U/L 13-39 [facility] Bilirubin.total [Mass/volume ] in Serum or PlasmaOrdered By: Prasanth Bai on 09-02-2022 Bilirubin [Mass/Vol] 0.5 mg/dL 0.3-1.0 [facility] Calcium [Mass/volume] in Ser um or PlasmaOrdered By: Prasanth Bai on 09-02-2022 Calcium [Mass/Vol] 9.5 mg/dL 8.6-10.3 [facility] Carbon dioxide, total [Moles /volume] in Serum or PlasmaOrdered By: Prasanth Gomez on 09-02-2022 CO2 [Moles/Vol] 35.0 mmol/L High 21.0-31.0 [facility] Chloride [Moles/volume] in S yvonne or PlasmaOrdered By: Prasanth Bai on 09-02-2022 Chloride [Moles/Vol] 99 mmol/L 98-107 [facility] Creatinine [Mass/volume] in Serum or PlasmaOrdered By: Prasanth Bai on 09-02-2022 Creatinine [Mass/Vol] 0.83 mg/dL 0.60-1.20 [facility] Globulin Calc (S) [Mass/Vol] Ordered By: Prasanth Bai on 09-02-2022 Globulin (S) [Mass/Vol] 2.2 g/dL F [facility] Glucose [Mass/volume] in Ser um or PlasmaOrdered By: Prasanth Bai on 09-02-2022 Glucose [Mass/Vol] 77 mg/dL 70-100 [facility] Comment on above: ADA recommended refe rence rangeRandom Glucose Reference Range is dependent on time and content of last meal. Glucose of more than 200 mg/dL in a nonstressed, ambulatory subject supports the diagnosis of Diabetes Mellitus. No Panel InformationOrdered By: Prasanth Bai on 09-02-2022 Estimated GFR (CKD-EPI) > 60.0 mL/Min [facility] Creatinine Clearance (Chem 50.38 [facility] Potassium [Moles/volume] in Serum or PlasmaOrdered By: Prasanth Bai on 09-02-2022 Potassium [Moles/Vol] 4.2 mmol/L 3.5-5.1 [facility] Protein [Mass/volume] in Ser um or PlasmaOrdered By: Prasanth Bai on 09-02-2022 Protein [Mass/Vol] 6.4 g/dL 6.4-8.9 [facility] Serum or plasma albumin/glob ulin mass ratioOrdered By: Prasanth Bai on 09-02-2022 Albumin/Globulin [Mass ratio] 1.9 {ratio} [facility] Serum or plasma anion gap de terminationOrdered By: Prasanth Bai on 09-02-2022 Anion gap [Moles/Vol] 10.2 mmol/L 6.0-15.0 [facility] Sodium [Moles/volume] in Ser um or PlasmaOrdered By: Prasanth Bai on 09-02-2022 Sodium [Moles/Vol] 140 mmol/L 136-145 [facility] Urea nitrogen [Mass/volume] in Serum or PlasmaOrdered By: Prasanth Bai on 09-02-2022 Urea nitrogen [Mass/Vol] 20 mg/dL 09-01 [facility] CULTURE URINEon 12-05-2021 CULTURE URINE Culture Observations : GREATER THAN TWO ORGANISMS PRESENT. PLEASE RESUBMIT CLEAN CATCH MID-STREAM URINE IF CLINICALLY INDICATED. Normal [facility] Comment on above: Performed By: #### U RCX #### [facility] [address] [place] [address] Dr. Nataly Lara CBC AUTO DIFFon 12-03-2021 BASO # 0.1 103/ul Normal 0.0-0.1 [facility] Comment on above: Performed By: #### C BC #### [facility] [address] [place] [address] Dr. Nataly Lara Basophils/100 WBC (Bld) 0.5 % Normal 0.2-2.0 [facility] Comment on above: Performed By: #### C BC #### [facility] [address] [place] [address] Dr. Nataly Lara EO # 0.2 103/ul Normal 0.0-0.7 [facility] Comment on above: Performed By: #### C BC #### [facility] [address] [place] [address] Dr. Nataly Lara Eosinophils/100 WBC (Bld) 1.9 % Normal 0.9-7.0 [facility] Comment on above: Performed By: #### C BC #### [facility] [address] [place] [address] Dr. Nataly Lara Erythrocyte distribution width (RBC) [Ratio] 12.5 % Normal 11.0-15.0 [facility] Comment on above: Performed By: #### C BC #### [facility] [address] [place] [address] Dr. Nataly Lara Hematocrit (Bld) [Volume fraction] 41.8 % Normal 36.0-48.0 [facility] Comment on above: Performed By: #### C BC #### [facility] [address] [place] [address] Dr. Nataly Lara Hemoglobin (Bld) [Mass/Vol] 13.7 g/dL Normal 12.0-16.0 [facility] Comment on above: Performed By: #### C BC #### [facility] [address] [place] [address] Dr. Nataly Lara IG # 0.04 10e3/ul Critically high 0.00-0.03 [facility] Comment on above: Performed By: #### C BC #### [facility] [address] [place] [address] Dr. Nataly Lara IG % 0.3 % Normal 0.0-0.5 [facility] Comment on above: Performed By: #### C BC #### [facility] [address] [place] [address] Dr. Nataly Lara LYMPH # 1.4 103/ul Normal 1.2-3.8 [facility] Comment on above: Performed By: #### C BC #### [facility] [address] [place] [address] Dr. Nataly Lara Lymphocytes/100 WBC (Bld) 11.4 % Critically low 20.5-60.0 [facility] Comment on above: Performed By: #### C BC #### [facility] [address] [place] [address] Dr. Nataly Lara MANUAL DIFF REQ NO Normal [facility] Comment on above: Performed By: #### C BC #### [facility] [address] [place] [address] Dr. Nataly Lara MCH (RBC) [Entitic mass] 31.2 pg Normal 26.7-34.0 [facility] Comment on above: Performed By: #### C BC #### [facility] [address] [place] [address] Dr. Nataly Lara MCHC (RBC) [Mass/Vol] 32.8 g/dL Normal 29.9-35.2 [facility] Comment on above: Performed By: #### C BC #### [facility] [address] [place] [address] Dr. Nataly Lara MCV (RBC) [Entitic vol] 95.2 fL Normal 81.0-99.0 [facility] Comment on above: Performed By: #### C BC #### [facility] [address] [place] [address] Dr. Nataly Lara MONO # 0.8 103/ul Normal 0.3-0.8 [facility] Comment on above: Performed By: #### C BC #### [facility] [address] [place] [address] Dr. Nataly Lara Monocytes/100 WBC (Bld) 7.0 % Normal 1.7-12.0 [facility] Comment on above: Performed By: #### C BC #### [facility] [address] [place] [address] Dr. Nataly Lara NEUT # 9.5 103/ul Critically high 1.4-6.5 [facility] Comment on above: Performed By: #### C BC #### [facility] [address] [place] [address] Dr. Nataly Lara Neutrophils/100 WBC (Bld) 78.9 % Critically high 43.0-75.0 [facility] Comment on above: Performed By: #### C BC #### [facility] [address] [place] [address] Dr. Nataly Lara Platelet mean volume (Bld) [Entitic vol] 9.5 fL Normal 9.5-13.5 [facility] Comment on above: Performed By: #### C BC #### [facility] [address] [place] [address] Dr. Nataly Lara PLT 319 103/ul Normal 150-450 [facility] Comment on above: Performed By: #### C BC #### [facility] [address] [place] [address] Dr. Nataly Lara RBC 4.39 106/ul Normal 4.20-5.40 [facility] Comment on above: Performed By: #### C BC #### [facility] [address] [place] [address] Dr. Nataly Lara WBC 12.0 103/ul Critically high 4.0-11.0 [facility] Comment on above: Performed By: #### C BC #### [facility] [address] [address] [address] Nataly DOVE URINE PROFILEon 2 Bilirubin Ql (U) Negative Normal NEGATIVE [facility] Comment on above: Performed By: #### U MICRO, ERUR #### [facility] [address] [address] [address] Nataly Lara Clarity (U) CLEAR Normal CLEAR [facility] Comment on above: Performed By: #### U MICRO, ERUR #### [facility] [address] [address] [address] Nataly Lara Color (U) LT. YELLOW Normal YELLOW [facility] Comment on above: Performed By: #### U MICRO, ERUR #### [facility] [address] [place] [address] Dr. Nataly Lara ERUAHD A micrscopic examination will be performed if indicated. Normal [facility] Comment on above: Performed By: #### U MICRO, ERUR #### [facility] [address] [address] [address] Nataly Lara Glucose Ql (U) Negative Normal NEGATIVE [facility] Comment on above: Performed By: #### U MICRO, ERUR #### [facility] [address] [address] [address] Nataly Lara Hemoglobin Ql (U) LARGE Abnormal NEGATIVE [facility] Comment on above: Performed By: #### U MICRO, ERUR #### [facility] [address] [address] [address] Nataly Lara Ketones Ql (U) Negative Normal NEGATIVE [facility] Comment on above: Performed By: #### U MICRO, ERUR #### [facility] [address] [address] [address] Nataly Lara LEUKOCYTES TRACE Abnormal NEGATIVE [facility] Comment on above: Performed By: #### U MICRO, ERUR #### [facility] [address] [address] [address] Nataly Lara Nitrite Ql (U) Negative Normal NEGATIVE [facility] Comment on above: Performed By: #### U MICRO, ERUR #### [facility] [address] [address] [address] Nataly Lara pH (U) 6.0 [pH] Normal 5-9 [facility] Comment on above: Performed By: #### U MICRO, ERUR #### [facility] [address] [address] [address] Nataly Lara SPEC GRAVITY <=1.005 Abnormal 1.005-<=1.02 5 [facility] Comment on above: Performed By: #### U MICRO, ERUR #### [facility] [address] [address] [address] Nataly Lara UA PROTEIN Negative Normal NEGATIVE/ TRACE [facility] Comment on above: Performed By: #### U MICRO, ERUR #### [facility] [address] [address] [address] Nataly Lara UR MICRO IND INDICATED Normal [facility] Comment on above: Performed By: #### U MICRO, ERUR #### [facility] [address] [address] [address] Nataly Lara Urobilinogen Qn (U) 0.2 {June'U}/dL Normal 0.2 - 1. 0 [facility] Comment on above: Performed By: #### U MICRO, ERUR #### [facility] [address] [address] [address] Nataly Lara PROF 14(COMP METB)on 022 Albumin [Mass/Vol] 3.8 g/dL Normal 3.4-5.0 [facility] Comment on above: Performed By: #### C MP ####[facility] [address] [address]Dr. Nataly Lara Albumin/Globulin [Mass ratio] 1.1 {ratio} Normal [facility] Comment on above: Performed By: #### C MP ####[facility] [address] [address]Dr. Nataly Lara ALP [Catalytic activity/Vol] 94 U/L Normal 46-116 [facility] Comment on above: Performed By: #### C MP ####[facility] [address] [id number]. Nataly Lara ALT [Catalytic activity/Vol] 13 U/L Critically low 14-59 [facility] Comment on above: Performed By: #### C MP ####[facility] [address] [id number]. Nataly Lara Anion gap [Moles/Vol] 5.6 mmol/L Normal [facility] Comment on above: Performed By: #### C MP ####[facility] [address] [id number]. Nataly Lara AST [Catalytic activity/Vol] 13 U/L Critically low 15-37 [facility] Comment on above: Performed By: #### C MP ####[facility] [address] [address]Dr. Nataly Marco Bilirubin [Mass/Vol] 0.3 mg/dL Normal 0.2-1.0 [facility] Comment on above: Performed By: #### C MP ####[facility] [address] [id number]. Nataly Marco Calcium [Mass/Vol] 9.6 mg/dL Normal 8.5-10.1 [facility] Comment on above: Performed By: #### C MP ####[facility] [address] [id number]. Nataly Marco Chloride [Moles/Vol] 100 mmol/L Normal 98-107 [facility] Comment on above: Performed By: #### C MP ####[facility] [address] [id number]. Nataly Lara CO2 [Moles/Vol] 34.4 mmol/L Critically high 21.0-32.0 [facility] Comment on above: Performed By: #### C MP ####[facility] [address] [address]Dr. Nataly Marco Creatinine [Mass/Vol] 0.91 mg/dL Normal 0.55-1.02 [facility] Comment on above: Performed By: #### C MP ####[facility] [address] [id number]. Nataly Marco EGFR-AF [place] >60 Normal >=60 [facility] Comment on above: Performed By: #### C MP ####[facility] [address] [address]Dr. Machelletamanna Marco EGFR-NON AF [place] 60 mL/min/1.73m2 Normal >=60 [facility] Comment on above: Performed By: #### C MP ####[facility] [address] [id number]. Nataly Lara Globulin (S) [Mass/Vol] 3.5 g/dL Normal [facility] Comment on above: Performed By: #### C MP ####[facility] [address] [address]Dr. Nataly Lara Glucose [Mass/Vol] 80 mg/dL Normal 74-106 [facility] Comment on above: Performed By: #### C MP ####[facility] [address] [address]Dr. Nataly Lara Potassium [Moles/Vol] 3.0 mmol/L Critically low 3.5-5.1 [facility] Comment on above: Performed By: #### C MP ####[facility] [address] [address]Dr. Nataly Lara Protein [Mass/Vol] 7.3 g/dL Normal 6.4-8.2 [facility] Comment on above: Performed By: #### C MP ####[facility] [address] [address]Dr. Nataly Lara Sodium [Moles/Vol] 137 mmol/L Normal 136-145 [facility] Comment on above: Performed By: #### C MP ####[facility] [address] [address]Dr. Nataly Lara Urea nitrogen [Mass/Vol] 18.0 mg/dL Normal 7.0-18.0 [facility] Comment on above: Performed By: #### C MP ####[facility] [address] [address]Dr. Nataly Lara Urea nitrogen/Creatinine [Mass ratio] 19.8 mg/mg Normal [facility] Comment on above: Performed By: #### C MP ####[facility] [address] [id number]. Nataly Lara URINE MICROSCOPIC ONLYon BACTERIA TRACE Abnormal NONE SEEN [facility] Comment on above: Performed By: #### U MICRO, ERUR #### [facility] [address] [place] [address] Dr. Nataly Lara Bacteria identified Cx Nom (U) INDICATED Normal [facility] Comment on above: Performed By: #### U MICRO, ERUR #### [facility] [address] [place] [address] Dr. Nataly Lara CAST NONE SEEN Normal NONE SEEN [facility] Comment on above: Performed By: #### U MICRO, ERUR #### [facility] [address] [place] [address] Dr. Nataly Lara Crystals LM Nom (Urine sed) NONE SEEN Normal NONE SEEN [facility] Comment on above: Performed By: #### U MICRO, ERUR #### [facility] [address] [place] [address] Dr. Nataly Lara Epithelial cells LM Ql (Urine sed) MODERATE Abnormal NONE SEEN /RARE [facility] Comment on above: Performed By: #### U MICRO, ERUR #### [facility] [address] [place] [address] Dr. Nataly Lara MUCOUS NONE SEEN Normal NONE SEEN [facility] Comment on above: Performed By: #### U MICRO, ERUR #### [facility] [address] [address] [address] Nataly Lara RBC 10-20 Abnormal 0-2 [facility] Comment on above: Performed By: #### U MICRO, ERUR #### [facility] [address] [place] [address] Dr. Nataly Lara WBC 10-20 Abnormal NONE SEEN [facility] Comment on above: Performed By: #### U MICRO, ERUR #### [facility] [address] [place], [place] [address] Dr. Nataly Lara US KIDNEYSon 12-03-2021 US [...] AUNDREA IVERSON Date: 2021-12-03 15:50 Normal [facility] XR KUB 1 VIEWon 11-14-2021 XR KUB [...] by: AUNDREA IVERSON Date: 2021-11-14 13:29 Normal [facility] CBC AUTO DIFFon 11-09-2021 BASO # 0.0 103/ul Normal 0.0-0.1 [facility] Comment on above: Performed By: #### C BC ####[facility] [address] [place], [place] [address]DjDr. Nataly Lara Basophils/100 WBC (Bld) 0.4 % Normal 0.2-2.0 [facility] Comment on above: Performed By: #### C BC ####[facility] [address] [place], [place] [address]Dr. Machelletamanna Lara EO # 0.4 103/ul Normal 0.0-0.7 [facility] Comment on above: Performed By: #### C BC ####[facility] Eifyemyfjx[address] [place], [place] [address]Dr. Nataly Lara Eosinophils/100 WBC (Bld) 5.2 % Normal 0.9-7.0 [facility] Comment on above: Performed By: #### C BC ####[facility] Wwelmisx[address] [place], [place] [address]Dr. Nataly Lara Erythrocyte distribution width (RBC) [Ratio] 12.8 % Normal 11.0-15.0 [facility] Comment on above: Performed By: #### C BC ####[facility] W[address]ug[address] [place], [place] [address]Dr. Nataly Laar Hematocrit (Bld) [Volume fraction] 41.5 % Normal 36.0-48.0 [facility] Comment on above: Performed By: #### C BC ####[facility] Tuyidagedm[address] [place], [place] [address]Dr. Machelletamanna Lara Hemoglobin (Bld) [Mass/Vol] 13.2 g/dL Normal 12.0-16.0 [facility] Comment on above: Performed By: #### C BC ####[facility] [address]vf[address] [place], [place] [address]Dr. Nataly Lara IG # 0.02 10e3/ul Normal 0.00-0.03 [facility] Comment on above: Performed By: #### C BC ####[facility] [address]xf[address] [place], [place] [address]Dr. Nataly Lara IG % 0.2 % Normal 0.0-0.5 [facility] Comment on above: Performed By: #### C BC ####[facility] Sz[address] [place], [place] [address]Dr. Nataly Lara LYMPH # 1.5 103/ul Normal 1.2-3.8 [facility] Comment on above: Performed By: #### C BC ####[facility] [address] [place] [address]Dr. Nataly Lara Lymphocytes/100 WBC (Bld) 18.3 % Critically low 20.5-60.0 [facility] Comment on above: Performed By: #### C BC ####[facility] [address] [place] [address]DrConnie Lara MANUAL DIFF REQ NO Normal [facility] Comment on above: Performed By: #### C BC ####[facility] [address]mcete[address] [place] [address]Dr. Nataly Lara MCH (RBC) [Entitic mass] 31.1 pg Normal 26.7-34.0 [facility] Comment on above: Performed By: #### C BC ####[facility] Tqyfzq[address]ge[address] [place], [place] [address]Dr. Nataly Lara MCHC (RBC) [Mass/Vol] 31.8 g/dL Normal 29.9-35.2 [facility] Comment on above: Performed By: #### C BC ####[facility] Accim[address]ds[address] [place], [place] [address]DrConnie Lara MCV (RBC) [Entitic vol] 97.9 fL Normal 81.0-99.0 [facility] Comment on above: Performed By: #### C BC ####[facility] [address]jpj[address]ps[address] [place], [place] [address]Dr. Nataly Lara MONO # 0.6 103/ul Normal 0.3-0.8 [facility] Comment on above: Performed By: #### C BC ####[facility] S[address]af[address] [place], [place] [address]DrConnie Lara Monocytes/100 WBC (Bld) 6.9 % Normal 1.7-12.0 [facility] Comment on above: Performed By: #### C BC ####[facility] K[address]uz[address]wr[address] [place], [place] [address]Dr. Nataly Lara NEUT # 5.7 103/ul Normal 1.4-6.5 [facility] Comment on above: Performed By: #### C BC ####[facility] [address] [place] [address]Dr. Nataly Lara Neutrophils/100 WBC (Bld) 69.0 % Normal 43.0-75.0 [facility] Comment on above: Performed By: #### C BC ####[facility] [address] [place] [address]Dr. Nataly Lara Platelet mean volume (Bld) [Entitic vol] 9.5 fL Normal 9.5-13.5 [facility] Comment on above: Performed By: #### C BC ####[facility] [address] [place] [address]Dr. Nataly Lara PLT 267 103/ul Normal 150-450 [facility] Comment on above: Performed By: #### C BC ####[facility] [address] [place] [address]Dr. Nataly Lara RBC 4.24 106/ul Normal 4.20-5.40 [facility] Comment on above: Performed By: #### C BC ####[facility] [address] [place] [address]Dr. Nataly Lara WBC 8.2 103/ul Normal 4.0-11.0 [facility] Comment on above: Performed By: #### C BC ####[facility] Eeph[address]sfyz[address] [place], [place] [address]Dr. Nataly Lara CT CHEST W CONon 11-09-2021 [...] by: TASHI ESCOBAR Date: 2021-11-09 15:58 Normal [facility] CT CSPINE WO CONon CT CSPINE [...] by: TASHI ESCOBAR Date: 2021-11-09 15:43 Normal [facility] CT FACIAL BONES WO CONon CT [...] by: ISIAH ALVARES Date: 2021-11-09 16:14 Normal [facility] CT HEAD WO CONon 11-09-2021 CT HEAD [...] and symmetry. No herniation or hydrocephalus. The garza matter/white matter differentiation is maintained throughout. No CT evidence of contemporary infarction. No acute intracranial hemorrhage or parenchymal mass. The calvarium and skull base are intact. Small mucous retention cyst at the left maxillary sinus. Mild mucosal thickening of a left ethmoid air cell anteriorly. IMPRESSION: 1. No acute intracranial abnormality. Electronically authenticated by: SELWYN COATES Date: 2021-11-09 15:42 Normal [facility] PROF CHEM 8 (BAS METB)on Anion gap [Moles/Vol] 10.6 mmol/L Normal [facility] Comment on above: Performed By: #### B MP ####[facility] [address] [place] [address]DrConnie Lara Calcium [Mass/Vol] 9.5 mg/dL Normal 8.5-10.1 [facility] Comment on above: Performed By: #### B MP ####[facility] [address] [place] [id number] Lara Chloride [Moles/Vol] 102 mmol/L Normal 98-107 [facility] Comment on above: Performed By: #### B MP ####[facility] [address] [place] [address]Dr. Nataly Marco CO2 [Moles/Vol] 33.4 mmol/L Critically high 21.0-32.0 [facility] Comment on above: Performed By: #### B MP ####[facility] [address]xwzo[address] [place] [address]Dr. Machelletamanna Marco Creatinine [Mass/Vol] 0.87 mg/dL Normal 0.55-1.02 [facility] Comment on above: Performed By: #### B MP ####[facility] [address] [place], [place] [address]Dr. Machelletamanna Marco EGFR-AF [place] >60 Normal >=60 [facility] Comment on above: Performed By: #### B MP ####[facility] [address] [place], [place] [address]Dr. Nataly Lara EGFR-NON AF [place] >60 Normal >=60 [facility] Comment on above: Performed By: #### B MP ####[facility] [address]ar[address]kle[address] [place], [place] [address]Dr. Nataly Lara Glucose [Mass/Vol] 87 mg/dL Normal 74-106 [facility] Comment on above: Performed By: #### B MP ####[facility] [address] [place], [place] [address]Dr. Nataly Lara Potassium [Moles/Vol] 4.0 mmol/L Normal 3.5-5.1 [facility] Comment on above: Performed By: #### B MP ####[facility] [address] [place] [address]Dr. Nataly Lara Sodium [Moles/Vol] 142 mmol/L Normal 136-145 [facility] Comment on above: Performed By: #### B MP ####[facility] [address] [place], [place] [address]Dr. Nataly Lara Urea nitrogen [Mass/Vol] 16.0 mg/dL Normal 7.0-18.0 [facility] Comment on above: Performed By: #### B MP ####[facility] [address] [place], [place] [address]XpConnie Lara Urea nitrogen/Creatinine [Mass ratio] 18.4 mg/mg Normal [facility] Comment on above: Performed By: #### B MP ####[facility] [address]pu[address] [place], [place] [address]Bf. 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 Applied Anthropologist: CAPRI Transcribe Date/Time: Aug 13 2021 3:20P Dictated by : MIRYAM MA MD This examination was interpreted and the report reviewed and electronically signed by: MIRYAM MA MD on Aug 13 2021 3:22PM EST [id number] _DIVISION OF RADIOLOGY * * *Final Report* * * DATE OF EXAM: Aug 13 2021 2:23PM LZX [id number] - XR KNEE 3V AP/LAT/TRINY SILVINO / PROCEDURE REASON: Status post bilateral knee replacements * * * * Physician Interpretation * * * * EXAMINATION: XR KNEE 3V AP/LAT/TRINY SILVINO PATIENT/TECHNOLOGIST PROVIDED HISTORY: f/u post op silvino knee replacements CLINICAL INFORMATION ( PROVIDED BY ORDERING CLINICIAN) : Status post bilateral knee replacements TECHNIQUE: XR KNEE 3V AP/LAT/TRINY SILVINO Laterality: BILATERAL Number of different views (projections): 3 each M: XB_1 COMPARISON: 04/19/2020 RESULT: No acute fracture or dislocation. Bilateral total knee arthroplasties with patellar resurfacing again noted. Mild periprosthetic lucency about the right tibial stem is unchanged. No additional periprosthetic lucency. No large joint effusion. [id number] _DIVISION OF RADIOLOGY Provider, [facility] - 08/13/2021 * * *Final Report* * * DATE OF EXAM: Aug 13 2021 2:23PM [facility] [id number] - XR KNEE 3V AP/LAT/TRINY SILVINO / PROCEDURE REASON: Status post bilateral knee replacements * * * * Physician Interpretation * * * * EXAMINATION: XR KNEE 3V AP/LAT/TRINY SILVINO PATIENT/TECHNOLOGIST PROVIDED HISTORY: f/u post op silvino knee replacements CLINICAL INFORMATION ( PROVIDED BY ORDERING CLINICIAN) : Status post bilateral knee replacements TECHNIQUE: XR KNEE 3V AP/LAT/TRINY SILVINO Laterality: BILATERAL Number of different views (projections): 3 each M: XB_1 COMPARISON: 04/19/2020 RESULT: No acute fracture or dislocation. Bilateral total knee arthroplasties with patellar resurfacing again noted. Mild periprosthetic lucency about the right tibial stem is unchanged. No additional periprosthetic lucency. No large joint effusion. IMPRESSION IMPRESSION: Unchanged appearance of bilateral total knee arthroplasties. Applied Anthropologist: CAPRI Transcribe Date/Time: Aug 13 2021 3:20P Dictated by : MIRYAM MA MD This examination was interpreted and the report reviewed and electronically signed by: MIRYAM MA MD on Aug 13 2021 3:22PM [facility] Radiology Study observation (narrative) [facility] XR Knee - bilateral 3 ViewsO rdered By: Cc Provider on 08-13-2021 [facility] XR Knee - bilateral 3 Viewso n 04-19-2020 IMPRESSION: Bilateral total knee arthroplasties without complication. Applied Anthropologist[facility] Transcribe Date/Time: Apr 19 2020 10:33A Dictated by : ULICES WADSWORTH MD This examination was interpreted and the report reviewed and electronically signed by: ULICES WADSWORTH MD on Apr 19 2020 10:35AM [facility] DIVISION OF RADIOLOGY * * *Final Report* * * DATE OF EXAM: Apr 19 2020 10:07AM [facility] 5635 - XR KNEE 3V AP/LAT/TRINY SILVINO / PROCEDURE REASON: Status post bilateral knee replacements * * * * Physician Interpretation * * * * X-RAYS BILATERAL KNEES HISTORY: Annual follow up. Status post bilateral knee replacements TECHNIQUE: 4 views of each knee. COMPARISON: 06/14/2018 RESULT: There are bilateral total knee arthroplasties with patellar resurfacing. Satisfactory anatomic alignment. No periprosthetic fracture or lucency. No significant joint effusion involving either knee. DIVISION OF RADIOLOGY Provider, [facility] - 04/19/2020 * * *Final Report* * * DATE OF EXAM: Apr 19 2020 10:07AM L[facility] 5635 - XR KNEE 3V AP/LAT/TRINY SILVINO / PROCEDURE REASON: Status post bilateral knee replacements * * * * Physician Interpretation * * * * X-RAYS BILATERAL KNEES HISTORY: Annual follow up. Status post bilateral knee replacements TECHNIQUE: 4 views of each knee. COMPARISON: 06/14/2018 RESULT: There are bilateral total knee arthroplasties with patellar resurfacing. Satisfactory anatomic alignment. No periprosthetic fracture or lucency. No significant joint effusion involving either knee. IMPRESSION IMPRESSION: Bilateral total knee arthroplasties without complication. Applied Anthropologist: [facility] Transcribe Date/Time: Apr 19 2020 10:33A Dictated by : ULICES WADSWORTH MD This examination was interpreted and the report reviewed and electronically signed by: ULICES WADSWORTH MD on Apr 19 2020 10:35AM EST [facility] Radiology Study observation (narrative) [facility] XR Knee - bilateral 3 ViewsO rdered By: Ccf Provider on 04-19-2020 [facility] No Panel Information [facility] Vital Signs Date Time Vital Sign Value Performing Clinician Facility 09-29-2024 10:50-0400 Body height 154.94 cm Roney Leroy DO Work Phone: [facility] 09-29-2024 10:50-0400 Body mass index (BMI) [Ratio] 29 kg/m2 Roney Leroy DO Work Phone: [facility] 09-29-2024 10:50-0400 Body weight 69.85 kg Roney Leroy DO Work Phone: [facility] 09-29-2024 10:50-0400 Diastolic blood pressure 78 mm[Hg] Roney Leroy DO Work Phone: [facility] 09-29-2024 10:50-0400 Heart rate 66 /min Roney Leroy DO Work Phone: [facility] 09-29-2024 10:50-0400 Systolic blood pressure 124 mm[Hg] Roney Leroy DO Work Phone: [facility] 09-11-2024 13:37-0400 Body height 160.02 cm Roney Leroy DO Work Phone: [facility] 09-11-2024 13:37-0400 Body mass index (BMI) [Ratio] 27.6 kg/m2 Roney Leroy DO Work Phone: [facility] 09-11-2024 13:37-0400 Body temperature 97.8 [degF] Roney Leroy DO Work Phone: [facility] 09-11-2024 13:37-0400 Body weight 70.76 kg Roney Leroy DO Work Phone: 5(163)457-339153 [address] 09-11-2024 13:37-0400 Diastolic blood pressure 77 mm[Hg] Roney Leroy DO Work Phone: 2(194)646-926753 [address] 09-11-2024 13:37-0400 Heart rate 103 /min Roney Leroy DO Work Phone: [facility] 09-11-2024 13:37-0400 Respiratory rate 16 /min Roney Leroy DO Work Phone: 2(071)354-341784 [place] [address] 09-11-2024 13:37-0400 SaO2% (BldA) [Mass fraction] 98 % Roney Leroy DO Work Phone: [facility] 09-11-2024 13:37-0400 Systolic blood pressure 132 mm[Hg] Roney Leroy DO Work Phone: [facility] 09-06-2024 16:19-0400 Body temperature 97.59 [degF] Moses Richards DO Work Phone: [facility] 09-06-2024 16:19-0400 Diastolic blood pressure 64 mm[Hg] Moses Richards DO Work Phone: [facility] 09-06-2024 16:19-0400 Heart rate 94 /min Moses Richards DO Work Phone: [facility] 09-06-2024 16:19-0400 SaO2% (BldA) [Mass fraction] 98 % Moses Richards DO Work Phone: [facility] 09-06-2024 16:19-0400 Systolic blood pressure 128 mm[Hg] Moses Richards DO Work Phone: [facility] 08-24-2024 10:51-0400 Body height 160 cm Gunner Itzkowitz DO Work Phone: [facility] 08-24-2024 10:51-0400 Body mass index (BMI) [Ratio] 27.63 kg/m2 Gunner Itzkowitz DO Work Phone: [facility] 08-24-2024 10:51-0400 Body weight 70.76 kg Gunner Itzkowitz DO Work Phone: [facility] 08-14-2024 09:45-0400 Body height 160.02 cm Roney Leroy DO Work Phone: [facility] 08-14-2024 09:45-0400 Body mass index (BMI) [Ratio] 27.4 kg/m2 Roney Leroy DO Work Phone: [facility] 08-14-2024 09:45-0400 Body weight 70.3 kg Roney Leroy DO Work Phone: [facility] 08-14-2024 09:45-0400 Diastolic blood pressure 74 mm[Hg] Roney Leroy DO Work Phone: [facility] 08-14-2024 09:45-0400 Heart rate 94 /min Roney Leroy DO Work Phone: [facility] 08-14-2024 09:45-0400 Systolic blood pressure 138 mm[Hg] Roney Leroy DO Work Phone: [facility] 05-11-2024 11:00-0400 Body height 160.02 cm [facility] 05-11-2024 11:00-0400 Body mass index (BMI) [Ratio] 27.2 kg/m2 [facility] 05-11-2024 11:00-0400 Body weight 69.7 kg [facility] 05-11-2024 11:00-0400 Diastolic blood pressure 74 mm[Hg] [facility] 05-11-2024 11:00-0400 Systolic blood pressure 135 mm[Hg] [facility] 03-15-2024 13:16-0500 Body height 160 cm Carolyne Kline ENVIRONMENTAL HEALTH MANAGER Work Phone: [facility] 03-15-2024 13:16-0500 Body mass index (BMI) [Ratio] 30.11 kg/m2 Carolyne Kline ENVIRONMENTAL HEALTH MANAGER Work Phone: [facility] 03-15-2024 13:16-0500 Body temperature 98.01 [degF] Carolyne Whitneyy ENVIRONMENTAL HEALTH MANAGER Work Phone: [facility] 03-15-2024 13:16-0500 Body weight 77.11 kg Carolyne Kline ENVIRONMENTAL HEALTH MANAGER Work Phone: [facility] 03-15-2024 13:16-0500 Diastolic blood pressure 72 mm[Hg] Caroylne Whitneyrickey ENVIRONMENTAL HEALTH MANAGER Work Phone: [facility] 03-15-2024 13:16-0500 Heart rate 90 /min Carolyne Kline ENVIRONMENTAL HEALTH MANAGER Work Phone: [facility] 03-15-2024 13:16-0500 SaO2% (BldA) [Mass fraction] 99 % Carolyne Kline ENVIRONMENTAL HEALTH MANAGER Work Phone: [facility] 03-15-2024 13:16-0500 Systolic blood pressure 126 mm[Hg] Carolyne Eliud ENVIRONMENTAL HEALTH MANAGER Work Phone: [facility] 03-15-2024 13:04-0500 Body height 160 cm Mounika [place] DO Work Phone: [facility] 03-15-2024 13:04-0500 Body mass index (BMI) [Ratio] 30.11 kg/m2 Mounika [place] DO Work Phone: [facility] 03-15-2024 13:04-0500 Body temperature 98.01 [degF] Mounika [place] DO Work Phone: [facility] 03-15-2024 13:04-0500 Body weight 77.11 kg Mounika [place] DO Work Phone: [facility] 03-15-2024 13:04-0500 Diastolic blood pressure 72 mm[Hg] Mounika [place] DO Work Phone: [facility] 03-15-2024 13:04-0500 Heart rate 90 /min Mounika [place] DO Work Phone: [facility] 03-15-2024 13:04-0500 SaO2% (BldA) [Mass fraction] 99 % Mounika [place] DO Work Phone: [facility] 03-15-2024 13:04-0500 Systolic blood pressure 126 mm[Hg] Mounika [place] DO Work Phone: [facility] 03-08-2024 12:55-0500 Body height 160 cm Mounika [place] DO Work Phone: [facility] 03-08-2024 12:55-0500 Body mass index (BMI) [Ratio] 29.05 kg/m2 Mounika [place] DO Work Phone: [facility] 03-08-2024 12:55-0500 Body temperature 96.01 [degF] Mounika [place] DO Work Phone: [facility] 03-08-2024 12:55-0500 Body weight 74.39 kg Mounika [place] DO Work Phone: [facility] 03-08-2024 12:55-0500 Diastolic blood pressure 72 mm[Hg] Mounika [place] DO Work Phone: [facility] 03-08-2024 12:55-0500 Heart rate 71 /min Mounika [place] DO Work Phone: [facility] 03-08-2024 12:55-0500 SaO2% (BldA) [Mass fraction] 98 % Mounika [place] DO Work Phone: [facility] 03-08-2024 12:55-0500 Systolic blood pressure 118 mm[Hg] Mounika [place] DO Work Phone: [facility] 01-28-2024 09:37-0500 Body height 160 cm Mounika [place] DO Work Phone: [facility] 01-28-2024 09:37-0500 Body mass index (BMI) [Ratio] 28.09 kg/m2 Mounika [place] DO Work Phone: [facility] 01-28-2024 09:37-0500 Body temperature 99.39 [degF] Mounika [place] DO Work Phone: [facility] 01-28-2024 09:37-0500 Body weight 71.94 kg Mounika [place] DO Work Phone: [facility] 01-28-2024 09:37-0500 Diastolic blood pressure 78 mm[Hg] Mounika [place] DO Work Phone: [facility] 01-28-2024 09:37-0500 Heart rate 102 /min Mounika [place] DO Work Phone: [facility] 01-28-2024 09:37-0500 SaO2% (BldA) [Mass fraction] 97 % Mounika [place] DO Work Phone: [facility] 01-28-2024 09:37-0500 Systolic blood pressure 112 mm[Hg] Mounika [place] DO Work Phone: [facility] 01-26-2024 15:17-0500 Body mass index (BMI) [Ratio] 28.34 kg/m2 Summer Workman PA Work Phone: [facility] 01-26-2024 15:17-0500 Body temperature 96.69 [degF] Summer Workman PA Work Phone: [facility] 01-26-2024 15:17-0500 Body weight 72.58 kg Summer Workman PA Work Phone: [facility] 01-26-2024 15:17-0500 Diastolic blood pressure 86 mm[Hg] Summer Workman PA Work Phone: [facility] 01-26-2024 15:17-0500 Heart rate 97 /min Summer Workman PA Work Phone: [facility] 01-26-2024 15:17-0500 SaO2% (BldA) [Mass fraction] 99 % Summer Workman PA Work Phone: [facility] 01-26-2024 15:17-0500 Systolic blood pressure 138 mm[Hg] Summer Workman PA Work Phone: [facility] 01-12-2024 12:51-0500 Body mass index (BMI) [Ratio] 28.63 kg/m2 Jah Sutherland ENVIRONMENTAL HEALTH MANAGER Work Phone: [facility] 01-12-2024 12:51-0500 Body temperature 98.6 [degF] Jah Sutherland ENVIRONMENTAL HEALTH MANAGER Work Phone: [facility] 01-12-2024 12:51-0500 Body weight 73.3 kg Jah Sutherland ENVIRONMENTAL HEALTH MANAGER Work Phone: [facility] 01-12-2024 12:51-0500 Diastolic blood pressure 68 mm[Hg] Jah Sutherland ENVIRONMENTAL HEALTH MANAGER Work Phone: [facility] 01-12-2024 12:51-0500 Heart rate 88 /min Jah Sutherland ENVIRONMENTAL HEALTH MANAGER Work Phone: [facility] 01-12-2024 12:51-0500 SaO2% (BldA) [Mass fraction] 98 % Jah Sutherland ENVIRONMENTAL HEALTH MANAGER Work Phone: [facility] 01-12-2024 12:51-0500 Systolic blood pressure 132 mm[Hg] Jah Sutherland ENVIRONMENTAL HEALTH MANAGER Work Phone: [facility] 12-08-2023 13:31-0400 Body height 160.02 cm [facility] 12-08-2023 13:31-0400 Body mass index (BMI) [Ratio] 28.5 kg/m2 [facility] 12-08-2023 13:31-0400 Body weight 72.99 kg [facility] 11-29-2023 11:50-0400 Body mass index (BMI) [Ratio] 27.61 kg/m2 Chalo Menjivar MD Work Phone: [facility] 11-29-2023 11:50-0400 Body weight 70.7 kg Chalo Menjivar MD Work Phone: [facility] 11-29-2023 11:50-0400 Diastolic blood pressure 82 mm[Hg] Chalo Menjivar MD Work Phone: [facility] 11-29-2023 11:50-0400 Heart rate 96 /min Chalo Menjivar MD Work Phone: [facility] 11-29-2023 11:50-0400 Systolic blood pressure 131 mm[Hg] Chalo Menjivar MD Work Phone: [facility] 11-02-2023 10:42-0400 Body height 160 cm Mounika [place] DO Work Phone: [facility] 11-02-2023 10:42-0400 Body mass index (BMI) [Ratio] 28.34 kg/m2 Mounika [place] DO Work Phone: [facility] 11-02-2023 10:42-0400 Body temperature 98.01 [degF] Mounika [place] DO Work Phone: [facility] 11-02-2023 10:42-0400 Body weight 72.58 kg Mounika [place] DO Work Phone: [facility] 11-02-2023 10:42-0400 Diastolic blood pressure 76 mm[Hg] Mounika [place] DO Work Phone: [facility] 11-02-2023 10:42-0400 Heart rate 85 /min Mounika [place] DO Work Phone: [facility] 11-02-2023 10:42-0400 SaO2% (BldA) [Mass fraction] 98 % Mounika [place] DO Work Phone: [facility] 11-02-2023 10:42-0400 Systolic blood pressure 128 mm[Hg] Mounika [place] DO Work Phone: [facility] 10-27-2023 16:00-0400 Body mass index (BMI) [Ratio] 27.81 kg/m2 Summer Workman PA Work Phone: [facility] 10-27-2023 16:00-0400 Body temperature 95.9 [degF] Summer Workman PA Work Phone: [facility] 10-27-2023 16:00-0400 Body weight 71.22 kg Summer Workman PA Work Phone: [facility] 10-27-2023 16:00-0400 Diastolic blood pressure 76 mm[Hg] Summer Workman PA Work Phone: [facility] 10-27-2023 16:00-0400 Heart rate 102 /min [facility] Workman PA Work Phone: [facility] 10-27-2023 16:00-0400 SaO2% (BldA) [Mass fraction] 98 % [facility] Workman PA Work Phone: [facility] 10-27-2023 16:00-0400 Systolic blood pressure 138 mm[Hg] [facility] Lifestanderman PA Work Phone: [facility] 10-18-2023 10:53-0400 Body mass index (BMI) [Ratio] 28.34 kg/m2 Jah Sutherland ENVIRONMENTAL HEALTH MANAGER Work Phone: [facility] 10-18-2023 10:53-0400 Body temperature 97.81 [degF] Jah Sutherland ENVIRONMENTAL HEALTH MANAGER Work Phone: [facility] 10-18-2023 10:53-0400 Body weight 72.58 kg Jah Sutherland ENVIRONMENTAL HEALTH MANAGER Work Phone: [facility] 10-18-2023 10:53-0400 Diastolic blood pressure 78 mm[Hg] Jah Sutherland ENVIRONMENTAL HEALTH MANAGER Work Phone: [facility] 10-18-2023 10:53-0400 Heart rate 100 /min Jah Sutherland ENVIRONMENTAL HEALTH MANAGER Work Phone: [facility] 10-18-2023 10:53-0400 Respiratory rate 18 /min Jah Sutherland ENVIRONMENTAL HEALTH MANAGER Work Phone: [facility] 10-18-2023 10:53-0400 SaO2% (BldA) [Mass fraction] 98 % Jah Sutherland ENVIRONMENTAL HEALTH MANAGER Work Phone: [facility] 10-18-2023 10:53-0400 Systolic blood pressure 132 mm[Hg] Jah Sutherland ENVIRONMENTAL HEALTH MANAGER Work Phone: [facility] 09-29-2023 10:43-0400 Body height 160 cm Sade Olivas PA Work Phone: [facility] 09-29-2023 10:43-0400 Body mass index (BMI) [Ratio] 29.05 kg/m2 Sade Olivas PA Work Phone: [facility] 09-29-2023 10:43-0400 Body temperature 97.2 [degF] Sade Olivas PA Work Phone: [facility] 09-29-2023 10:43-0400 Body weight 74.39 kg Sade Olivas PA Work Phone: [facility] 09-29-2023 10:43-0400 Diastolic blood pressure 72 mm[Hg] Sade Olivas PA Work Phone: [facility] 09-29-2023 10:43-0400 Heart rate 76 /min Sade Olivas PA Work Phone: [facility] 09-29-2023 10:43-0400 SaO2% (BldA) [Mass fraction] 95 % Sade Olivas PA Work Phone: [facility] 09-29-2023 10:43-0400 Systolic blood pressure 138 mm[Hg] Sade Olivas PA Work Phone: [facility] 09-29-2023 10:38-0400 Body height 160 cm Mounika [place] DO Work Phone: [facility] 09-29-2023 10:38-0400 Body mass index (BMI) [Ratio] 29.05 kg/m2 Mounika [place] DO Work Phone: [facility] 09-29-2023 10:38-0400 Body temperature 97.2 [degF] Mounika [place] DO Work Phone: [facility] 09-29-2023 10:38-0400 Body weight 74.39 kg Mounika [place] DO Work Phone: [facility] 09-29-2023 10:38-0400 Diastolic blood pressure 72 mm[Hg] Mounika [place] DO Work Phone: 7(556)418-846136 [place] [address] 09-29-2023 10:38-0400 Heart rate 76 /min Mounika [place] DO Work Phone: 1(322)779-483036 [place] [address] 09-29-2023 10:38-0400 SaO2% (BldA) [Mass fraction] 95 % Mounika [place] DO Work Phone: [facility] 09-29-2023 10:38-0400 Systolic blood pressure 138 mm[Hg] Mounika [place] DO Work Phone: 9(308)902-168360 [address] 09-08-2023 11:04-0400 Body temperature 98 [degF] DO Roney Rad Work Phone: 2(310)350-391253 [address] 09-08-2023 11:04-0400 Diastolic blood pressure 78 mm[Hg] DO Roney Rad Work Phone: 8(696)401-257953 [address] 09-08-2023 11:04-0400 Heart rate 85 /min DO Roney Rad Work Phone: 0(109)433-871953 [address] 09-08-2023 11:04-0400 Respiratory rate 18 /min DO Roney Rad Work Phone: 9(929)068-937853 [address] 09-08-2023 11:04-0400 SaO2% (BldA) [Mass fraction] 97 % DO Roney Rad Work Phone: 6(655)112-362084 [place] [address] 09-08-2023 11:04-0400 Systolic blood pressure 139 mm[Hg] DO Roney Rad Work Phone: 3(274)510-350453 [address] 09-08-2023 11:01-0400 Body height 160.02 cm DO Roney Rad Work Phone: 0(478)035-512953 [address] 09-08-2023 11:01-0400 Body mass index (BMI) [Ratio] 29 kg/m2 DO Roney Rad Work Phone: 8(345)947-009953 [address] 09-08-2023 11:01-0400 Body weight 74.38 kg DO Roney Rad Work Phone: 4(622)802-909453 [address] 12-08-2022 11:13-0400 Diastolic blood pressure 78 mm[Hg] Afshin Rocha MD Work Phone: [facility] 12-08-2022 11:13-0400 Systolic blood pressure 132 mm[Hg] Afshin Rocha MD Work Phone: [facility] 12-08-2022 10:43-0400 Body height 160 cm Afshin Rocha MD Work Phone: [facility] 12-08-2022 10:43-0400 Body mass index (BMI) [Ratio] 29.41 kg/m2 Afshin Rocha MD Work Phone: [facility] 12-08-2022 10:43-0400 Body weight 75.3 kg Afshin Rocha MD Work Phone: [facility] 12-08-2022 10:43-0400 Heart rate 87 /min Afshin Rocha MD Work Phone: [facility] 09-02-2022 10:00-0400 Body temperature 98 [degF] DO Roney Becerriler Work Phone: [facility] 09-02-2022 10:00-0400 Diastolic blood pressure 72 mm[Hg] DO Roney Becerriler Work Phone: [facility] 09-02-2022 10:00-0400 Heart rate 85 /min DO Roney Becerriler Work Phone: [facility] 09-02-2022 10:00-0400 Respiratory rate 20 /min DO Roney Becerriler Work Phone: [facility] 09-02-2022 10:00-0400 SaO2% (BldA) [Mass fraction] 95 % DO Roney Rad Work Phone: [facility] 09-02-2022 10:00-0400 Systolic blood pressure 136 mm[Hg] DO Roney Ard Work Phone: [facility] 05-19-2022 11:45-0400 Body height 162.56 cm Meir Morrissey Other [employer] Other 05-19-2022 11:45-0400 Body mass index (BMI) [Ratio] 27.12 kg/m2 Meir Morrissey Other [employer] Other 05-19-2022 11:45-0400 Body weight 71.67 kg Meir Morrissey Other [employer] Other 11-26-2021 14:45-0400 Body height 162.56 cm Meir Morrissey Other [employer] Other 11-26-2021 14:45-0400 Body mass index (BMI) [Ratio] 27.46 kg/m2 Meir Ureñay Other [employer] Other 11-26-2021 14:45-0400 Body weight 72.58 kg Meir Morrissey Other [employer] Other 11-18-2021 10:34-0400 Blood Pressure Location Noe LOZA [facility] 11-18-2021 10:34-0400 Diastolic blood pressure 71 mm[Hg] Noe LOZA [facility] 11-18-2021 10:34-0400 Heart rate 72 /min Noe LSAT [place] [facility] 11-18-2021 10:34-0400 Systolic blood pressure 145 mm[Hg] Noe LSAT [place] [facility] 12-05-2020 15:00-0400 Body height 162.56 cm Meir Morrissey Other [employer] Other 12-05-2020 15:00-0400 Body mass index (BMI) [Ratio] 27.63 kg/m2 Meir Morrissey Other [employer] Other 12-05-2020 15:00-0400 Body weight 73.03 kg Meir Morrissey Other [employer] Other 12-08-2018 14:36-0400 Body Temperature 98.2 [degF] [facility] 12-08-2018 14:36-0400 Body weight 78.8 kg [facility] 12-08-2018 14:36-0400 BP Diastolic 76 mm[Hg] [facility] 12-08-2018 14:36-0400 BP Systolic 146 mm[Hg] [facility] 12-08-2018 14:36-0400 Pulse (Heart Rate) 78 /min [facility] 12-08-2018 14:36-0400 Pulse Oximetry 98 % [facility] 12-08-2018 14:36-0400 Respiratory Rate 20 /min [facility] 10-14-2018 14:07-0400 Height 157.48 cm [facility] Encounters Encounter Date Encounter Type Care Provider Facility Start: 10-05-2024 End: 10-05-2024 Patient encounter procedure Brando Shields MD Work Phone: Ophthalmology Comment on above: 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); Dry eye syndrome of both eyes; Pseudophakia of both eyes; History of YAG laser capsulotomy of lens, right; Posterior vitreous detachment of both eyes Start: 10-05-2024 End: 10-05-2024 ambulatory BRANDO SHIELDS Facility:[facility] Start: 09-29-2024 End: 09-29-2024 ambulatory Roney Leroy DO Work Phone: [facility] Work Phone: Start: 09-29-2024 End: 09-29-2024 Patient encounter procedure Sade Gauthier [employer] -[facility] Work Phone: Start: 09-20-2024 End: 09-20-2024 Telephone encounter Anabelle Keita AUD Work Phone: [facility] Start: 09-13-2024 End: 09-13-2024 ambulatory DAVID TOMLIN Facility:[facility] Start: 09-11-2024 Registered Recurring Elsa Kendrick [facility] Work Phone: Start: 09-11-2024 End: 09-11-2024 ambulatory Roney Leroy DO Work Phone: [facility] Work Phone: Start: 09-11-2024 End: 09-11-2024 Patient encounter procedure Esme FANG -[facility] Work Phone: Start: 09-07-2024 End: 09-07-2024 Patient encounter procedure Jessica Garcia MD Work Phone: Ophthalmology Comment on above: PCO (posterior capsu lar opacification), right (Primary Dx); Pseudophakia; 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); History of Descemet membrane endothelial keratoplasty (DMEK) Start: 09-07-2024 End: 09-07-2024 ambulatory BRANDO A MAMMO Facility:[facility] Start: 09-06-2024 End: 09-06-2024 Office outpatient visit 25 minutes Moses Richards DO Work Phone: [facility] Comment on above: Foreign body of righ t ear, initial encounter Start: 09-06-2024 End: 09-06-2024 ambulatory MOSES RICHARDS Not Available Start: 09-04-2024 End: 09-04-2024 Nursing evaluation of patient and report Nurse Lucrecia [facility] Nalini Work Phone: Rheumatology Comment on above: Senile osteoporosis (Primary Dx); Personal history of other drug therapy Start: 09-04-2024 End: 09-04-2024 ambulatory CHALO MENJIVAR Facility:[facility] Start: 08-28-2024 End: 08-28-2024 Telephone encounter Chalo Menjivar MD Work Phone: Rheumatology Comment on above: Orders Start: 08-24-2024 End: 08-24-2024 ambulatory GUNNER HIDALGO Not Available Start: 08-24-2024 End: 08-24-2024 Office outpatient visit 25 minutes Gunner H Shawn DO Work Phone: [facility] Comment on above: Personal history of malignant neoplasm of breast (Primary Dx) Start: 08-17-2024 End: 08-21-2024 Telephone encounter Chalo Menjivar MD Work Phone: Rheumatology Comment on above: Results Start: 08-16-2024 End: 08-16-2024 Clinisync Result Encounter Generic External Data Provider [facility] External Department Unsolicited Start: 08-16-2024 End: 08-16-2024 Clinisync Result Encounter Generic External Data Provider [facility] External Department Unsolicited Start: 08-16-2024 End: 08-16-2024 ambulatory RONEY LEROY Facility:[facility] Start: 08-14-2024 End: 08-14-2024 ambulatory Roney Leroy DO Work Phone: [facility] Work Phone: Start: 08-14-2024 End: 08-14-2024 Patient encounter procedure Sade Gauthier [facility] Work Phone: Start: 08-10-2024 End: 08-10-2024 Telephone encounter Chalo Menjivar MD Work Phone: Rheumatology Comment on above: Patient Question; Ap pointment Start: 06-29-2024 End: 06-29-2024 ambulatory BRANDO A MAMMO Facility:[facility] Start: 06-26-2024 Registered Recurring Elsa Kendrick [facility] Work Phone: Start: 05-11-2024 End: 05-11-2024 ambulatory [facility] Work Phone: Start: 05-11-2024 End: 05-11-2024 Patient encounter procedure [facility] Work Phone: Start: 04-18-2024 End: 04-18-2024 ambulatory Silvia Bianchi Facility: [place] Start: 04-18-2024 End: 04-18-2024 ambulatory Noe LOZA Facility[place] Start: 04-18-2024 End: 04-18-2024 Patient encounter procedure Noe LOZA [facility] Start: 04-13-2024 End: 04-13-2024 ambulatory RONEY LEROY Facility:[facility] Start: 04-13-2024 End: 04-13-2024 Patient encounter procedure Nic Anderson MD Work Phone: Ophthalmology Comment on above: Pseudophakia (Primar y Dx); PCO (posterior capsular opacification), bilateral; History of Descemet membrane endothelial keratoplasty (DMEK); 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) Start: 04-09-2024 End: 04-09-2024 ambulatory RONEY LEROY Not Available Start: 04-06-2024 End: 04-06-2024 ambulatory RONEY LEROY Facility:[facility] Start: 04-06-2024 End: 04-06-2024 Patient encounter procedure Brando Shields MD Work Phone: Ophthalmology Comment on above: 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) Start: 03-18-2024 End: 03-20-2024 Refill Diego Martins MD Work Phone: Ophthalmology Comment on above: Refill Request Start: 03-15-2024 End: 03-15-2024 Assay of hemosiderin, quant Carolyne Kline ENVIRONMENTAL HEALTH MANAGER Work Phone: [facility] Work Phone: Start: 03-15-2024 End: 03-15-2024 Patient encounter procedure Carolyne Kline ENVIRONMENTAL HEALTH MANAGER Work Phone: [facility] 230 Comment on above: Routine general medi oriana examination at health care facility (Primary Dx); Mild intermittent asthma without complication (CMS/HCC); Hypertension, unspecified type (CMS/HCC); Hypothyroidism, unspecified type (CMS/HCC); Hyperlipidemia, unspecified hyperlipidemia type (CMS/HCC) Start: 03-15-2024 End: 03-15-2024 Bamboo flowsheet Mounika L [place] DO Work Phone: [facility] 230 Start: 03-15-2024 End: 03-15-2024 Bamboo flowsheet Mounika L [place] DO Work Phone: [facility] 230 Start: 03-15-2024 End: 03-15-2024 Office outpatient visit 25 minutes Mounika L [place] DO Work Phone: [facility] 230 Comment on above: Impingement of right shoulder (Primary Dx); Greater trochanteric bursitis of right hip Start: 03-15-2024 End: 03-15-2024 ambulatory CAROLYNE Rocio KLINE Not Available Start: 03-08-2024 End: 03-08-2024 Bamboo flowsheet Mounika L [place] DO Work Phone: [facility] 230 Start: 03-08-2024 End: 03-08-2024 Bamboo flowsheet Mounika L [place] DO Work Phone: [facility] 230 Start: 03-08-2024 End: 03-08-2024 Office outpatient visit 15 minutes Mounika L [place] DO Work Phone: [facility] 230 Comment on above: Impingement of right shoulder (Primary Dx); Right hip pain; Greater trochanteric bursitis of right hip Start: 03-08-2024 End: 03-08-2024 ambulatory MOUNIKA L CUTLER Not Available Start: 03-06-2024 End: 03-06-2024 ambulatory RONEY LEROY Facility:[facility] Start: 03-06-2024 End: 03-08-2024 Nursing evaluation of patient and report Nurse Lucrecia [facility] Nalini Work Phone: Rheumatology Comment on above: Senile osteoporosis (Primary Dx); Personal history of other drug therapy Refill Request Start: 03-05-2024 End: 03-06-2024 Telephone encounter Chalo Menjivar MD Work Phone: Rheumatology Comment on above: Results Start: 03-02-2024 End: 03-02-2024 Clinisync Result Encounter Generic External Data Provider [facility] External Department Unsolicited Start: 03-02-2024 End: 03-02-2024 Clinisync Result Encounter Generic External Data Provider [facility] External Department Unsolicited Start: 03-02-2024 End: 03-02-2024 ambulatory RONEY LEROY Facility:[facility] Start: 01-28-2024 End: 01-28-2024 Bamboo flowsheet Mounika L [place] DO Work Phone: [facility] Start: 01-28-2024 End: 01-28-2024 Bamboo flowsheet Mounika L [place] DO Work Phone: [facility] Start: 01-28-2024 End: 01-28-2024 Office outpatient visit 15 minutes Mounika L [place] DO Work Phone: [facility] Comment on above: Greater trochanteric bursitis of right hip (Primary Dx); Pain of right upper extremity Start: 01-28-2024 End: 01-28-2024 ambulatory MOUNIKA L CUTLER Not Available Start: 01-26-2024 End: 01-26-2024 ambulatory SUMMER M WORKMAN Not Available Start: 01-26-2024 End: 01-26-2024 Office outpatient visit 25 minutes Summer M Workman PA Work Phone: [facility] Comment on above: Acute cystitis witho ut hematuria (Primary Dx); Dysuria Start: 01-20-2024 End: 01-20-2024 ambulatory BRANDO SHIELDS Facility:[facility] Start: 01-20-2024 End: 01-20-2024 Patient encounter procedure Brando Shields MD Work Phone: Ophthalmology Comment on above: 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); Pseudophakia; Dry eye syndrome of both eyes; History of Descemet membrane endothelial keratoplasty (DMEK); Posterior vitreous detachment of both eyes; PCO (posterior capsular opacification), bilateral Start: 01-12-2024 End: 01-12-2024 Office outpatient visit 25 minutes Jah Sutherland ENVIRONMENTAL HEALTH MANAGER Work Phone: [facility] Comment on above: Bronchitis (Primary Dx); Acute cough Start: 01-12-2024 End: 01-12-2024 ambulatory JAH SUTHERLAND Not Available Start: 12-08-2023 End: 12-08-2023 ambulatory [facility] Work Phone: Start: 12-08-2023 End: 12-08-2023 Patient encounter procedure [facility] Work Phone: Start: 11-30-2023 End: 11-30-2023 Patient encounter procedure [facility] Comment on above: Sensorineural hearin g loss, bilateral (Primary Dx) Start: 11-30-2023 End: 11-30-2023 ambulatory MOUNIKA DICK Not Available Start: 11-29-2023 End: 11-29-2023 ambulatory CHALO MENJIVAR Facility:[facility] Start: 11-29-2023 End: 11-29-2023 Patient encounter procedure Chalo Menjivar MD Work Phone: Rheumatology Comment on above: Pseudogout involving multiple joints (Primary Dx); Elevated LFTs; Anemia of chronic disease; Elevated sed rate; Elevated C-reactive protein (CRP); Vitamin D deficiency; Postmenopausal osteoporosis of multiple sites; Hyperuricemia; Postlaminectomy syndrome, lumbar region; Secondary osteoarthritis of multiple sites; Personal history of other medical treatment; LETICIA positive; Joint stiffness of multiple sites; Family history of lupus erythematosus; 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, multiple sites; Pain in both feet; Hip pain, bilateral; Chronic pain of both knees; Pain in both upper arms; Personal history of other drug therapy Start: 11-11-2023 End: 11-11-2023 ambulatory BRANDO A MAMMO Facility:[facility] Start: 11-11-2023 End: 11-11-2023 Patient encounter procedure Brando Shields MD Work Phone: Ophthalmology Comment on above: 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); Retinal edema Start: 11-03-2023 End: 11-03-2023 Patient encounter procedure [facility] [place] Weaver [facility] Comment on above: Sensorineural hearin g loss, bilateral (Primary Dx) Start: 11-03-2023 End: 11-03-2023 ambulatory MOUNIKA CUTLER Not Available Start: 11-02-2023 End: 11-02-2023 Bamboo flowsheet Mounika L [place] DO [facility]: [facility] Start: 11-02-2023 End: 11-02-2023 Bamboo flowsheet Mounika L [place] DO Work Phone: [facility] 230 Start: 11-02-2023 End: 11-02-2023 Office outpatient visit 15 minutes Mounika L [place] DO Work Phone: [facility] 230 Comment on above: Acute cystitis witho ut hematuria (Primary Dx) Start: 11-02-2023 End: 11-02-2023 ambulatory MOUNIKA L CUTLER Not Available Start: 11-01-2023 End: 11-02-2023 Clinisync Result Encounter Generic External Data Provider [facility] External Department Unsolicited Start: 11-01-2023 End: 11-02-2023 Clinisync Result Encounter Generic External Data Provider [facility] External Department Unsolicited Start: 10-27-2023 End: 10-27-2023 ambulatory SUMMER M WORKMAN Not Available Start: 10-27-2023 End: 10-27-2023 Office outpatient visit 25 minutes Summer M Workman PA Work Phone: [facility] Comment on above: Generalized abdomina l pain (Primary Dx); Nausea and vomiting, unspecified vomiting type; Diarrhea, unspecified type; Flank pain Start: 10-27-2023 End: 10-29-2023 Clinisync Result Encounter Generic External Data Provider [facility] External Department Unsolicited Start: 10-27-2023 End: 10-29-2023 Clinisync Result Encounter Generic External Data Provider [facility] External Department Unsolicited Start: 10-19-2023 End: 10-19-2023 Telephone encounter Jah Sutherland ENVIRONMENTAL HEALTH MANAGER Work Phone: [facility] Start: 10-18-2023 End: 10-18-2023 ambulatory JAH SUTHERLAND Not Available Start: 10-18-2023 End: 10-18-2023 Office outpatient visit 25 minutes Jah Sutherland ENVIRONMENTAL HEALTH MANAGER Work Phone: [facility] Comment on above: Acute cystitis witho ut hematuria (Primary Dx); Urinary frequency Start: 10-14-2023 End: 10-15-2023 Refill Chalo Menjivar MD Work Phone: Rheumatology Comment on above: Refill Request Start: 10-06-2023 End: 10-06-2023 Patient encounter procedure [facility] [place] Weaver [facility] Comment on above: Sensorineural hearin g loss, bilateral (Primary Dx) Start: 10-06-2023 End: 10-06-2023 ambulatory MOUNIKA CUTLER Not Available Start: 09-29-2023 End: 09-29-2023 Bamboo flowsheet Mounika L [place] DO Work Phone: [facility] Start: 09-29-2023 End: 09-29-2023 Bamboo flowsheet Mounika L [place] DO Work Phone: [facility] Start: 09-29-2023 End: 09-29-2023 Assay of hemosiderin, quant Sade WOODWARD Work Phone: [facility] Work Phone: Start: 09-29-2023 End: 09-29-2023 Patient encounter procedure Sade WOODWARD Work Phone: [facility] 230 Comment on above: Routine general medi oriana examination at health care facility (Primary Dx) Start: 09-29-2023 End: 09-29-2023 Office outpatient visit 25 minutes Mounika L [place] DO Work Phone: [facility] Comment on above: Polyuria (Primary Dx ); Hypertension, unspecified type (CMS/HCC); Hypothyroidism, unspecified type (CMS/HCC); Primary hypertension (CMS/HCC); Supraventricular tachycardia, unspecified (CMS/HCC); Atherosclerosis of aorta (CMS/HCC) Start: 09-29-2023 End: 09-29-2023 ambulatory SADE OLIVAS Not Available Start: 09-22-2023 End: 09-22-2023 ambulatory ANABELLE Michael LINA Not Available Start: 09-16-2023 End: 09-16-2023 Patient encounter procedure Brando Shields MD Work Phone: Ophthalmology Comment on above: 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) Start: 09-08-2023 End: 09-08-2023 ambulatory DO Roney Leroy Work Phone: [facility] Work Phone: Start: 09-08-2023 End: 09-08-2023 Patient encounter procedure DO Roney Leroy Work Phone: [facility] Ambulatory Work Phone: Start: 09-08-2023 Registered Recurring DO Roney mosqueda Work Phone: [facility] Work Phone: Start: 09-03-2023 End: 09-03-2023 Nursing evaluation of patient and report Nurse Lucrecia [facility] Nalini Work Phone: Rheumatology Comment on above: Senile osteoporosis (Primary Dx); Personal history of other drug therapy Start: 09-02-2023 Refill Nic hernandez MD Work Phone: Ophthalmology Comment on above: Refill Request Start: 08-05-2023 End: 08-05-2023 Patient encounter procedure Brando Shields MD Work Phone: Ophthalmology Comment on above: 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.] above: Lab work on June 06 Start: 04-30-2023 Orders Only Radha Domingo Ophthalmology Comment on above: Exudative age-relate d macular degeneration of right eye with active choroidal neovascularization (HCC) (Primary Dx); Nonexudative age-related macular degeneration, left eye, intermediate dry stage; Pseudophakia; 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 Start: 04-29-2023 End: 04-29-2023 Patient encounter procedure Nic Anderson MD Work Phone: Ophthalmology Comment on above: History of Descemet membrane endothelial keratoplasty (DMEK) (Primary Dx); 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; Retinal edema; 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r degeneration of right eye with active choroidal neovascularization (HCC); Nonexudative age-related macular degeneration, left eye, intermediate dry stage Start: 03-18-2023 Bamboo flowsheet Mounika mccoy DO Work Phone: [facility] Start: 03-18-2023 Bamboo flowsheet Mounika L Cut ler DO Work Phone: [facility] Start: 01-03-2023 Telephone encounter Paulo harmon MD Work Phone: Ophthalmology Comment on above: Patient Update Start: 12-08-2022 End: 12-08-2022 ambulatory AFSHIN ROCHA [facility] Ambulatory Start: 12-08-2022 End: 12-08-2022 Office outpatient visit 25 minutes Afshin Rocha MD Work Phone: [facility] Comment on above: Vertigo (Primary Dx) ; SVT (supraventricular tachycardia); Overweight (BMI 25.0-29.9); Essential hypertension Start: 11-23-2022 End: 11-23-2022 ambulatory Meir Morrissey Other [employer] Other Start: 11-23-2022 Telephone encounter Meir RODRIGUEZ [facility] Start: 09-09-2022 Telephone encounter Chalo ott MD Work Phone: Rheumatology Comment on above: Results (BMD) Start: 08-26-2022 Telephone encounter Nic Anderson MD Work Phone: Ophthalmology Comment on above: Patient Question Start: 08-13-2022 Preprocedural examin ation done Mounika Dick DO Work Phone: [facility] Start: 08-05-2022 Telephone encounter Chalo ott MD Work Phone: Rheumatology Comment on above: Results Start: 05-19-2022 End: 05-19-2022 ambulatory Meir Morrissey Other [employer] Other Start: 05-19-2022 Patient encounter procedure Meir EMERY G[facility] Start: 04-14-2022 End: 04-14-2022 Patient encounter procedure Nic Anderson MD Work Phone: Ophthalmology Comment on above: 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); History of Descemet membrane endothelial keratoplasty (DMEK); Pseudophakia Start: 03-03-2022 End: 03-03-2022 ambulatory Meir Morrissey Other [employer] Other Start: 03-03-2022 Telephone encounter Meir Morrissey FP [facility]ology Start: 03-03-2022 End: 03-03-2022 Patient encounter [...] 11-26-2021 End: 11-26-2021 ambulatory Meir Morrissey Other [employer] Other Start: 11-26-2021 Patient encounter procedure Meir Morrissey [facility] Start: 11-18-2021 End: 11-18-2021 Patient encounter procedure Noe LOZA [facility] Start: 11-14-2021 End: 11-15-[address] NOE [...] 09-29-2021 End: 09-29-2021 ambulatory Meir Morrissey Other [facility] [employer] Other Start: 09-29-2021 Telephone encounter Meir Morrissey FP [facility] Gastroenterology Start: 09-26-2021 Telephone encounter Nic Anderson MD Work Phone: Ophthalmology Comment on above: Patient Update Start: 08-13-2021 End: 08-13-2021 Refill Robert Crocker MD Work Phone: Orthopaedics Comment on above: Status post bilatera l knee replacements (Primary Dx) Status post bilatera l knee replacements [Z96.653] Start: 07-30-2021 End: 07-30-2021 Patient encounter procedure Robert Sullivan DPM Work Phone: Podiatry Comment on above: Onychomycosis of rig ht great toe (Primary Dx) Start: 07-22-2021 End: 07-22-2021 Patient encounter procedure Nic Anderson MD Work Phone: Ophthalmology Comment on above: History of Descemet membrane endothelial keratoplasty (DMEK) (Primary Dx); Pseudophakia Start: 07-02-2021 ambulatory Maribell Butler RN [facility] Start: 07-02-2021 Patient encounter procedure Maribell Butler RN NURSE GAS COMPRESSOR OPERATOR Comment on above: Appointment Start: 06-03-2021 End: [...] Comment on above: Medication Problem Start: 04-14-2021 End: 09-29-2023 Preprocedural examination done Nic Anderson MD Work Phone: [facility] Work Phone: Start: 12-05-2020 Patient encounter procedure Meir Ghanshyam [facility] Gastroenterology Start: 04-19-2020 End: 04-19-2020 Subsequent hospital visit by physician Omar Crocker 1 Work Phone: Radiology Comment on above: Status post bilatera l knee replacements [Z96.653] Start: 12-20-2018 End: 12-20-2018 [facility] Start: 12-08-2018 [facility] Start: 06-20-2018 End: 06-20-2018 Patient encounter procedure [facility] Procedures Date Procedure Procedure Detail Performing Clinician Start: 10-05-2024 End: 10-05-2024 Intravitreal njx pharmacologic agt spx Brando Shields MD Work Phone: Start: 10-05-2024 End: 10-05-2024 Computerized ophthalmic imaging conner Shields MD Work Phone: Start: 09-05-2024 Dual energy X-ray absorptiometry Roney Leroy DO Work Phone: Start: 08-16-2024 [facility] CALCIUM SERPL-[facility] Generic External Data Provider Start: 06-26-2024 Screening mammography of bilateral breasts Roney Leroy DO Work Phone: Start: 04-06-2024 End: 04-06-2024 Intravitreal njx pharmacologic agt spx Brando Shields MD Work Phone: Start: 04-06-2024 Computerized ophthalmic imaging retina Brando Shields MD Work Phone: Start: 03-02-2024 [facility] CBC PNL BLD AUTO Generic External Data Provider Start: 01-26-2024 URINARY TRACT INFECTION (HTRX) Moses Delaney Richards DO Work Phone: Start: 01-26-2024 Urnls dip stick/tablet rgnt auto w/o microscopy Moses Baltazar Susie DO Work Phone: Start: 01-20-2024 Computerized ophthalmic imaging retina Brando Shields MD Work Phone: Start: 01-20-2024 End: 01-20-2024 Intravitreal njx pharmacologic agt spx Brando Shields MD Work Phone: Start: 01-12-2024 STATUS COVID-19/FLU Moses Delaney Richards DO Work Phone: Start: 11-11-2023 Computerized ophthalmic imaging retina Brando Shields MD Work Phone: Start: 11-11-2023 End: 11-11-2023 Intravitreal njx pharmacologic agt spx Brando Shields MD Work Phone: Start: 11-01-2023 C. DIFFICILE PCR Generic External Data Provider Start: 10-27-2023 Bacteria identified in Urine by Culture Generic External Data Provider Start: 10-27-2023 Urnls dip stick/tablet rgnt auto w/o microscopy Moses Delaney Richards DO Work Phone: Start: 10-18-2023 URINARY TRACT INFECTION (HTRX) Jah Sutherland ENVIRONMENTAL HEALTH MANAGER Work Phone: Start: 10-18-2023 Urnls dip stick/tablet rgnt auto w/o microscopy Jah Sutherland ENVIRONMENTAL HEALTH MANAGER Work Phone: Start: 09-16-2023 End: 09-16-2023 Intravitreal njx pharmacologic [...] surgery Nic lau MD Work Phone: Start: 08-13-2021 Radiologic examination knee 3 views Robert Crocker MD Work Phone: Start: 07-22-2021 Computerized corneal [...] mammography DO Roney Leroy Work Phone: Start: 04-19-2020 Radiologic examination knee 3 views Lisa WOODWARD-Karen Work Phone: Start: 06-14-2019 Bilateral mammography DO [...] value) Noe LOZA Corneal transplant Noe Jones ABHI H/O: cornea recipient Status pos t corneal transplant Nic Anderson MD Work Phone: History of operative procedure on knee Status post bilateral knee replacements Robert Crocker MD Work Phone: History of operative procedure on knee Status post bilateral knee replacements Xr 1 Work Phone: Procedure on back oNe ANDERSON Total knee replacement Jai LOZA Plan of Treatment Date Care Activity Detail Author Start: 03-02-2027 Diabetes Screening Diabetes Screening [facility] Start: 03-05-2026 Diabetes Screening Diabetes Screening [facility] Start: 10-20-2025 End: 03-29-2026 OCT MACULA CIRRUS OU (BOTH EYES) OCT MACULA CIRRUS OU (BOTH EYES) [facility] Imaging Routine 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) Expected: 10/20/2025, Expires: 03/29/2026 [facility] Work Phone: Comment on above: Expected: 10/20/2025, Expires: Start: 08-30-2025 End: 08-30-2025 Patient encounter procedure 08/30/2025 10:45 AM EDT Office Visit [facility] [address] [address] Gunner Hidalgo DO 7[address] [facility] [address] [place] [address] [facility] Start: 08-03-2025 DIABETES SCREEN DIABETES SCREEN [facility] Start: 08-03-2025 Diabetes Screening Diabetes Screening [facility] Start: 04-21-2025 End: 09-28-2025 OCT MACULA CIRRUS OU (BOTH EYES) OCT MACULA CIRRUS OU (BOTH EYES) [facility] Imaging Routine 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) Expected: 04/21/2025, Expires: 09/28/2025 [facility] Work Phone: Comment on above: Expected: 04/21/2025, Expires: Start: 04-19-2025 End: 04-19-2025 Patient encounter procedure 04/19/2025 9:15 AM EDT Office Visit [facility] [address] [address] Nic Anderson MD [address] [place] [address] [facility] [address] [address] Corneal Transplant yearly Ophthalmology Comment on above: Corneal Transplant yearly Start: 03-15-2025 Medicare Annual Wellness (AWV) Medicare Annual Wellness (AWV) [facility] Start: 02-03-2025 End: 07-13-2025 OCT MACULA CIRRUS OU (BOTH EYES) OCT MACULA CIRRUS OU (BOTH EYES) [facility] Imaging Routine 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) Expected: 02/03/2025, Expires: 07/13/2025 [facility] Work Phone: Comment on above: Expected: 02/03/2025, Expires: Start: 12-28-2024 End: 12-28-2024 Patient encounter procedure 12/28/2024 1:30 PM EST Office Visit [facility] [address] [place] [address] Brando Shields MD [address] [place] [address] [facility] [address] [address] *12 W, DFE/OCT/OPTOS/FAF, AVASTIN OU Ophthalmology Comment on above: *12 W, DFE/OCT/OPTOS/FAF, AVASTIN OU Start: 11-25-2024 End: 05-04-2025 OCT MACULA CIRRUS OU (BOTH EYES) OCT MACULA CIRRUS OU (BOTH EYES) [facility] Imaging Routine 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) Expected: 11/25/2024, Expires: 05/04/2025 [facility] Work Phone: Comment on above: Expected: 11/25/2024, Expires: Start: 11-02-2024 End: 11-02-2024 Patient encounter procedure [facility] Start: 10-23-2024 End: 10-23-2024 Patient encounter procedure Rheumatology Comment on above: for osteoporosis/osteoarthritis/pseudogo ut fu OV 6-12months. for osteoporosis/ost eoarthritis/pseudogout fu OV 6-12months./Last Prolia 09/04/24 Start: 10-09-2024 Influenza vaccination Influenza Vaccine (#1) [facility] Start: 10-05-2024 End: 10-05-2024 Patient encounter procedure 10/05/2024 10:15 AM EDT Office Visit [facility] [address] [place] [address] Brando Shields MD [address] [place] [address] *13-14 W, DFE/OCT/OPTOS/FAF, AVASTIN OU Ophthalmology Comment on above: *13-14 W, DFE/OCT/OPTOS/FAF, AVASTIN OU Start: 09-30-2024 End: 2025 OCT MACULA CIRRUS OU (BOTH EYES) OCT MACULA CIRRUS OU (BOTH EYES) [facility] Imaging Routine 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) Expected: 09/30/2024, Expires: 2025 [facility] Work Phone: Comment on above: Expected: 09/30/2024, Expires: Start: 09-28-2024 Medicare Annual Wellness (AWV) Medicare Annual Wellness (AWV) [facility] Start: 09-25-2024 End: 02-16-2026 YAG CAPSULOTOMY OD (RIGHT EYE) YAG CAPSULOTOMY OD (RIGHT EYE) Ophthalmology Routine PCO (posterior capsular opacification), right Expected: 09/25/2024, Expires: 02/16/2026 [facility] Work Phone: Comment on above: Expected: 09/25/2024, Expires: Start: 09-13-2024 End: 09-13-2024 Patient encounter procedure 09/13/2024 10:30 AM EDT Office Visit [facility] [address] [place] [address] David Tomlin S, OD [address] [place] [address] [facility] [address] [place] [id number] Return for -F/U 1-2 weeks with medical staff credentialing coordinator (Fred). Ophthalmology Comment on above: Return for -F/U 1-[address] (Fred). Start: 09-07-2024 End: 09-07-2024 Patient encounter procedure Ophthalmology Comment on above: YAG EVAL YAG OD -last seen Dr SINGLETON Start: 09-04-2024 End: 09-04-2024 Nursing evaluation of patient and report 09/04/2024 2:00 PM EDT Nurse Visit Rheumatology [address] [place] [address] Nurse Lucrecia Gayle [facility] [address] [place] [address] [facility] Comment on above: [facility]OL[facility] Start: 08-24-2024 End: 08-24-2024 Patient encounter procedure 08/24/2024 10:45 AM EDT Office Visit [facility] CARSON [address] [facility] [address] [place] [phone] Gunner Hidalgo DO [address] [place] [address] [facility] Start: 08-19-2024 End: 01-26-2025 OCT MACULA CIRRUS OU (BOTH EYES) OCT MACULA CIRRUS OU (BOTH EYES) [facility] Imaging Routine 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) Expected: 08/19/2024, Expires: 01/26/2025 [facility] Work Phone: Comment on above: Expected: 08/19/2024, Expires: Start: 08-08-2024 End: 03-05-2025 25-hydroxyvitamin D3 [Mass/volume] in Serum or Plasma VITAMIN D 25 HYDROXY Lab Routine Vitamin D deficiency Expected: 08/08/2024 (Approximate), Expires: 03/05/2025 [facility] Comment on above: Expected: 08/08/2024 (Approximate), Expi res: 03/05/2025 Start: 08-08-2024 End: 03-05-2025 Calcium [Mass/volume] in Serum or Plasma CALCIUM, TOTAL Lab Routine Hypocalcemia Expected: 08/08/2024 (Approximate), Expires: 03/05/2025 [facility] Work Phone: Comment on above: Expected: 08/08/2024 (Approximate), Expi res: 03/05/2025 Start: 07-15-2024 End: 12-22-2024 OCT MACULA CIRRUS OU (BOTH EYES) OCT MACULA CIRRUS OU (BOTH EYES) [facility] Imaging Routine 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) Expected: 07/15/2024, Expires: 12/22/2024 [facility] Work Phone: Comment on above: Expected: 07/15/2024, Expires: Start: 07-06-2024 End: 07-06-2024 Patient encounter procedure 07/06/2024 10:30 AM EDT Office Visit [facility] [address] [place] [address] Brando Shields MD [address] [place] [address] *13 W, DFE/OCT, AVASTIN OU auth pending Ophthalmology Comment on above: *13 W, DFE/OCT, AVASTIN OU auth pending Start: 06-17-2024 End: 11-24-2024 OCT MACULA CIRRUS OU (BOTH EYES) OCT MACULA CIRRUS OU (BOTH EYES) [facility] Imaging Routine 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) Expected: 06/17/2024, Expires: 11/24/2024 [facility] Work Phone: Comment on above: Expected: 06/17/2024, Expires: Start: 04-16-2024 DIABETES SCREEN DIABETES SCREEN [facility] Start: 04-13-2024 End: 04-13-2024 Patient encounter procedure 04/13/2024 10:15 AM EST Office Visit [facility] [address] [address] Nic Anderson MD [address] [facility] [place] [address] 1 YEAR FOLLOW UP Ophthalmology Comment on above: 1 YEAR FOLLOW UP Start: 04-06-2024 End: 04-06-2024 Patient encounter procedure Ophthalmology Comment on above: Return in about 11 weeks (around 04/06/19) for Inj/OCT only. *11 W DTI AVASTIN OU Start: 03-15-2024 End: 03-15-2024 Patient encounter procedure 03/15/2024 1:00 PM EST Office Visit [facility] [address] [place] [address] [place], Mounika L, DO [address] [place] [address] Arrived [facility] Comment on above: Arrived Start: 03-08-2024 End: 03-08-2024 Patient encounter procedure 03/08/2024 1:00 PM EST Office Visit [facility] [address] [place] [address] Mounika Dick, DO [address] [place] [address] Arrived [facility] Comment on above: Arrived Start: 03-06-2024 End: 03-06-2024 Nursing evaluation of patient and report 03/06/2024 11:30 AM EST Nurse Visit Rheumatology [address] [facility] [place] [address] Nalini, Nurse Rheu [facility] [address] [facility] [place] [address] prolia Rheumatology Comment on above: prolia Start: 02-28-2024 End: 02-28-2024 ambulatory 02/28/2024 10:30 AM EST Results Only [facility] [address] [place] [address] [place] [address] labs [facility] Comment on above: labs Start: 02-09-2024 End: 11-27-2024 25-hydroxyvitamin D3 [Mass/volume] in Serum or Plasma VITAMIN D 25 HYDROXY Lab Routine Vitamin D deficiency Expected: 02/09/2024 (Approximate), Expires: 11/27/2024 [facility] Comment on above: Expected: 02/09/2024 (Approximate), Expi res: 11/27/2024 Start: 02-09-2024 Advance Directive Discussion Advance Directive Discussion [facility] Start: 02-09-2024 End: 11-27-2024 C reactive protein [Mass/volume] in Serum or Plasma C-REACTIVE PROTEIN Lab Routine Elevated sed rate Elevated C-reactive protein (CRP) Expected: 02/09/2024 (Approximate), Expires: 11/27/2024 [facility] Comment on above: Expected: 02/09/2024 (Approximate), Expi res: 11/27/2024 Start: 02-09-2024 End: 11-27-2024 CBC panel - Blood by Automated count COMPLETE BLOOD COUNT Lab Routine Anemia of chronic disease Expected: 02/09/2024 (Approximate), Expires: 11/27/2024 [facility] Comment on above: Expected: 02/09/2024 (Approximate), Expi res: 11/27/2024 Start: 02-09-2024 End: 11-27-2024 Comprehensive metabolic 2000 panel - Serum or Plasma COMPREHENSIVE METABOLIC PANEL Lab Routine Elevated LFTs Expected: 02/09/2024 (Approximate), Expires: 11/27/2024 [facility] Work Phone: Comment on above: Expected: 02/09/2024 (Approximate), Expi res: 11/27/2024 Start: 02-09-2024 End: 11-27-2024 Erythrocyte sedimentation rate SEDIMENTATION RATE, WESTERGREN Lab Routine Elevated sed rate Elevated C-reactive protein (CRP) Expected: 02/09/2024 (Approximate), Expires: 11/27/2024 [facility] Comment on above: Expected: 02/09/2024 (Approximate), Expi res: 11/27/2024 Start: 02-09-2024 Medicare Advantage Annual Wellness Visit Medicare Advantage Annual Wellness Visit [facility] Start: 02-09-2024 End: 05-10-2024 Urate [Mass/volume] in Serum or Plasma URIC ACID Lab Routine Hyperuricemia Expected: 02/09/2024 (Approximate), Expires: 05/10/2024 [facility] Comment on above: Expected: 02/09/2024 (Approximate), Expi res: 05/10/2024 Start: 01-30-2024 Medicare Annual Wellness (AWV) Medicare Annual Wellness (AWV) [facility] Healthcare Start: 01-28-2024 End: 01-28-2024 Patient encounter procedure 01/28/2024 9:40 AM EST Office Visit [facility] [address] [place] [phone] Mounika Dick DO [address] [place] [address] Arrived [facility] 230 Comment on above: Arrived Start: 01-20-2024 End: 01-20-2024 Patient encounter procedure Ophthalmology Comment on above: Return in about 10 weeks (around 024) for DFE. *10 W DFE/OCT, AVAST IN OU Start: 11-30-2023 End: 11-30-2023 Patient encounter procedure 11/30/2023 10:30 AM EDT Office Visit [facility] [address] [place] [address] [facility] Start: 11-29-2023 End: 11-29-2023 Patient encounter procedure 11/29/2023 12:00 PM EDT Office Visit Rheumatology [address] [place] [address] Chalo Menjivar MD [address] [place] [address] Postmenopausal osteoporosis of multiple sites Rheumatology Comment on above: Postmenopausal osteoporosis of multiple sites Start: 11-11-2023 End: 11-11-2023 Patient encounter procedure Ophthalmology Comment on above: Return in about 7 weeks (around ) for Inj/OCT only, 7-8 weeks. *7-8 W DTI AVASTIN O U Start: 11-03-2023 End: 11-03-2023 Patient encounter procedure 11/03/2023 1:00 PM EDT Office Visit [facility] [address] [place] [address] [facility] Start: 11-02-2023 End: 11-01-2024 Bacteria identified in Urine by Culture Urine culture (clean catch) Microbiology Routine Acute cystitis without hematuria Expected: 11/02/2023 (Approximate), Expires: 11/01/2024 [facility] Comment on above: Expected: 11/02/2023 (Approximate), Expi res: 11/01/2024 Start: 11-02-2023 End: 11-01-2024 Urinalysis complete panel - Urine Urinalysis with microscopic Lab Routine Acute cystitis without hematuria Expected: 11/02/2023 (Approximate), Expires: 11/01/2024 [facility] Work Phone: Comment on above: Expected: 11/02/2023 (Approximate), Expi res: 11/01/2024 Start: 11-02-2023 End: 11-02-2023 Patient encounter procedure [facility] 230 Comment on above: Arrived Start: 10-25-2023 End: 10-25-2023 Patient encounter procedure 10/25/2023 10:30 AM EDT Office Visit [facility] [address] [place] [address] [facility] Start: 10-10-2023 Covid-19 Vaccine ( season) Covid-19 Vaccine () [facility] Start: 10-10-2023 Covid-19 Vaccine ( season) Covid-19 Vaccine () [facility] Start: 10-10-2023 Influenza vaccination Influenza Vaccine (#1) [facility] Start: 10-06-2023 End: 10-06-2023 Patient encounter procedure 10/06/2023 3:00 PM EDT Office Visit [facility] [address] [place] [address] [facility] Start: 09-29-2023 End: 09-28-2024 CBC W Auto Differential panel - Blood CBC and differential Lab Routine Hypertension, unspecified type (CMS/HCC) Expected: 09/29/2023 (Approximate), Expires: 09/28/2024 [facility] Work Phone: Comment on above: Expected: 09/29/2023 (Approximate), Expi res: 09/28/2024 Start: 09-29-2023 End: 09-28-2024 Comprehensive metabolic 2000 panel - Serum or Plasma Comprehensive metabolic panel Lab Routine Hypertension, unspecified type (CMS/HCC) Expected: 09/29/2023 (Approximate), Expires: 09/28/2024 [facility] Comment on above: Expected: 09/29/2023 (Approximate), Expi res: 09/28/2024 Start: 09-29-2023 End: 09-28-2024 Lipid 1996 panel - Serum or Plasma Lipid panel Lab Routine Hypertension, unspecified type (CMS/HCC) Expected: 09/29/2023 (Approximate), Expires: 09/28/2024 [facility] Comment on above: Expected: 09/29/2023 (Approximate), Expi res: 09/28/2024 Start: 09-29-2023 End: 09-28-2024 Thyrotropin [Units/volume] in Serum or Plasma Tsh+free t4 Lab Routine Hypothyroidism, unspecified type (CMS/HCC) Expected: 09/29/2023 (Approximate), Expires: 09/28/2024 [facility] Comment on above: Expected: 09/29/2023 (Approximate), Expi res: 09/28/2024 Start: 09-29-2023 End: 09-28-2024 Urinalysis with microscopic (reflex culture if indicated) Urinalysis with microscopic (reflex culture if indicated) Lab Routine Polyuria Expected: 09/29/2023 (Approximate), Expires: 09/28/2024 [facility] Comment on above: Expected: 09/29/2023 (Approximate), Expi res: 09/28/2024 Start: 09-29-2023 End: 09-29-2023 Patient encounter procedure [facility] Comment on above: Arrived Start: 09-16-2023 End: 09-16-2023 Patient encounter procedure 09/16/2023 10:30 AM EDT Office Visit [facility] [address] [place], [place] [id number] Brando Shields MD [address] [place] [address] *6 W DTI AVASTIN OU Ophthalmology Comment on above: *6 W DTI AVASTIN OU Start: 09-03-2023 End: 09-03-2023 Nursing evaluation of patient and report Rheumatology Comment on above: Prolia Prolia + Start: 08-25-2023 End: 08-25-2023 Patient encounter procedure 08/25/2023 1:15 PM EDT Office Visit [facility] [address] [place] [id number] Gunner Hidalgo DO [address] [facility] [address] [place] [address] [facility] Start: 08-05-2023 End: 08-05-2023 Patient encounter procedure Ophthalmology Comment on above: Return in about 6 weeks (around 08/12/2023 ) for Inj/OCT only, OK to OB fill all green spots 1st . *6 W DTI AVASTIN OU Start: 07-01-2023 End: 07-01-2023 Patient encounter procedure 07/01/2023 8:45 AM EDT Office Visit [facility] [address] [place] [address] Brando Shields MD [address] [place] [address] *4 W DTI AVASTIN OU Ophthalmology Comment on above: *4 W DTI AVASTIN OU Start: 02-08-2023 Advance Directive Discussion Advance Directive Discussion [facility] Start: 02-08-2023 Behavioral Health Screening Behavioral Health Screening [facility] Start: 02-08-2023 Depression Assessment Depression Assessment [facility] Start: 10-09-2022 Covid-19 Vaccine ( season) Covid-19 Vaccine ( season) [facility] Start: 10-09-2022 Influenza vaccination [facility] Start: 05-24-2022 COVID-19 VACCINE (5 - Pfizer series) COVID-19 VACCINE (5 - Pfizer series) [facility] Start: 03-20-2022 COVID-19 Vaccine (4 - Pfizer series) COVID-19 Vaccine (4 - Pfizer series) [facility] Start: 02-08-2022 ADVANCE DIRECTIVE DISCUSSION ADVANCE DIRECTIVE DISCUSSION [facility] Start: 02-08-2022 DEPRESSION ASSESSMENT DEPRESSION ASSESSMENT [facility] Start: 10-09-2021 Influenza vaccination [facility] Start: 03-27-2021 COVID-19 VACCINE (4 - Booster for Pfizer series) COVID-19 VACCINE (4 - Booster for Pfizer series) [facility] Start: 03-19-2021 COVID-19 VACCINE (4 - Booster for Pfizer series) COVID-19 VACCINE (4 - Booster for Pfizer series) [facility] Start: 02-08-2021 ADVANCE DIRECTIVE DISCUSSION ADVANCE DIRECTIVE DISCUSSION [facility] Start: 02-08-2021 DEPRESSION ASSESSMENT DEPRESSION ASSESSMENT [facility] Start: 10-09-2020 Influenza vaccination INFLUENZA (#1) [facility] Start: 02-24-2020 PNEUMOCOCCAL: 65+ (2 - PCV) PNEUMOCOCCAL: 65+ (2 - PCV) [facility] Start: 02-24-2020 PNEUMOCOCCAL: 65+ (3 - PCV) PNEUMOCOCCAL: 65+ (3 - PCV) [facility] Start: 11-29-2019 Adult depression screening assessment DEPRESSION SCREENING [facility] Start: 2017 RSV Vaccine (1 - 1-dose 75+ series) RSV Vaccine (1 - 1-dose 75+ series) [facility] Start: 2007 BONE DENSITY BONE DENSITY [facility] Start: 2007 Bone Density Screening Bone Density Screening [facility] Start: 2007 Screening for osteoporosis Bone Density Screening [facility] Start: 2002 RSV Vaccine (1 - 1-dose 60+ series) RSV Vaccine (1 - 1-dose 60+ series) [facility] Start: 1964 DTaP/Tdap/Td Vaccines (1 - Tdap) DTaP/Tdap/Td Vaccines (1 - Tdap) [facility] Start: 1961 Urine microalbumin profile [facility] Start: 1960 ANNUAL PCP TEAM CHRONIC DISEASE VISIT ANNUAL PCP TEAM CHRONIC DISEASE VISIT [facility] Start: 1960 Anxiety Screening Anxiety Screening [facility] Start: 1960 BP CONTROLLED (<130/80) BP CONTROLLED (<130/80) [facility] Start: 1960 Depression Screening Depression Screening [facility] Start: 1960 Diabetes mellitus screening Diabetes Screening [facility] Start: 1960 SPIROMETRY SPIROMETRY [facility] Start: 1942 Lipid panel Lipid Panel [facility] Start: 1942 Medicare Annual Wellness Visit Medicare Annual Wellness Visit (AWV) [facility] Start: 1942 Screening for osteoporosis Bone Density Scan [facility] Start: 1942 Thyroid stimulating hormone measurement TSH Level [facility] End: 12-27-2024 BD DXA TRABECULAR BONE SCORE (TBS) BD DXA TRABECULAR BONE SCORE (TBS) Radiology Routine Postmenopausal osteoporosis of multiple sites 1 Occurrences starting 11/28/2023 until 12/27/2024 [facility] Comment on above: 1 Occurrences starting 11/28/2023 until 12/27/2024 DXA Skeletal system.axial Views for bone density [facility] End: 12-27-2024 DXA Skeletal system.axial Views for bone density DXA-AXIAL SKELETON Radiology Routine Postmenopausal osteoporosis of multiple sites 1 Occurrences starting 11/28/2023 until 12/27/2024 [facility] Comment on above: 1 Occurrences starting 11/28/2023 until 12/27/2024 End: 12-27-2024 DXA-FOREARM SKELETON DXA-FOREARM SKELETON Radiology Routine Postmenopausal osteoporosis of multiple sites 1 Occurrences starting 11/28/2023 until 12/27/2024 [facility] Comment on above: 1 Occurrences starting 11/28/2023 until 12/27/2024 MG Breast - bilatera l Screening [facility] MG Breast - bilatera l Screening [facility] MG Breast - bilatera l Screening [facility] End: 10-21-2024 OCT MACULA CIRRUS OU (BOTH EYES) OCT MACULA CIRRUS OU (BOTH EYES) OPHT Imaging Routine 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, left eye, intermediate dry stage Pseudophakia 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 1 Occurrences starting 04/30/2023 until 10/21/2024 [facility] Work Phone: Comment on above: 1 Occurrences starting 04/30/2023 until 10/21/2024 URINARY TRACT INFECTION (HTRX) URINARY TRACT INFECTION (HTRX) Lab Routine Flank pain Ordered: 10/27/2023 [facility] Work Phone: Comment on above: Ordered: 10/27/2023 YAG CAPSULOTOMY OD (RIGHT EYE) YAG CAPSULOTOMY OD (RIGHT EYE) Ophthalmology Routine PCO (posterior capsular opacification), right 09/07/2024 3:40 PM EDT [facility] Immunizations Immunization Date Immunization Notes Care Provider Izabella [facility] 01-29-2023 Influenza, injectabl e, Madin Melina Canine Kidney, preservative free, quadrivalent Mounika [place] DO Work Phone: [facility] 01-29-2023 influenza virus vaccine, unspecified formulation Nic Anderson MD Work Phone: [facility] 01-23-2022 SARS-CoV-2 (COVID-19 ) [id number] Noe LOZA [facility] 12-19-2021 Influenza, Seasonal, Quadrivalent, Adjuvanted Mounika [place] DO Work Phone: [facility] 12-19-2021 Seasonal, trivalent, recombinant, injectable influenza vaccine, preservative free Mounika [place] DO Work Phone: [facility] 12-19-2021 influenza virus vaccine, unspecified formulation Afshin Rocha MD Work Phone: [facility] 08-18-2021 influenza, injectabl e, quadrivalent, preservative free Mounika [place] DO Work Phone: [facility] 12-25-2020 SARS-CoV-2 (COVID-19 ) mRNA BNT-162b2 vax Noe LOZA [facility] 03-29-2020 COVID-19 vaccine, ag e 12+ yr (PFIZER-BIONTN-1-1 - PURPLE TOP) Nic Anedrson MD Work Phone: [facility] Work Phone: Comment on above: Result Comment: 2021: [id number] 02-01-2021 SARS-CoV-2 (COVID-19 ) mRNA-1273 vaccine Noe LOZA [facility] 03-08-2020 COVID-19 vaccine, ag e 12+ yr (PFIZER-BIONTECH - PURPLE TOP) Nic Anderson MD Work Phone: [facility] Work Phone: Comment on above: Result Comment: 2021: [id number] 02-09-2020 SARS-CoV-2 (COVID-19 ) mRNA-1273 vaccine Noe LOZA [facility] 09-25-2019 influenza virus vaccine, unspecified formulation Noe LOZA [facility] 09-25-2019 influenza, injectabl e, quadrivalent, preservative free Nic Anderson MD Work Phone: [facility] Work Phone: 09-22-2019 influenza, high-dose , quadrivalent vaccine (FLUZONE HIGH DOSE QUADRIVALENT) Nic Anderson MD Work Phone: [facility] Work Phone: 09-22-2019 zoster vaccine recombinant Nic Anderson MD Work Phone: [facility] Work Phone: 09-09-2019 influenza virus vaccine, unspecified formulation Noe LOZA [facility] 09-09-2019 influenza, injectabl e, quadrivalent, preservative free Nic Anderson MD Work Phone: [facility] Work Phone: 04-10-2019 zoster vaccine recombinant Nic Anderson MD Work Phone: [facility] Work Phone: 02-23-2019 pneumococcal polysaccharide vaccine, 23 valent Nic Anderson MD Work Phone: [facility] Work Phone: 12-19-2018 influenza, injectabl e, madin melina canine kidney, preservative free Nic Anderson MD Work Phone: [facility] Work Phone: 01-13-2018 influenza virus vaccine, unspecified formulation Noe LOZA [facility] 01-13-2018 influenza, injectabl e, quadrivalent, contains preservative Nic Anderson MD Work Phone: [facility] Work Phone: 11-12-2016 influenza, injectabl e, madin melina canine kidney, preservative free Nic Anderson MD Work Phone: [facility] Work Phone: 11-12-2016 Influenza, injectabl e, Madin Brewster Canine Kidney, preservative free, quadrivalent Mounika [place] DO Work Phone: [facility] 12-17-2015 influenza virus vaccine, unspecified formulation Noe LOZA [facility] 12-17-2015 influenza, injectabl e, quadrivalent, contains preservative Nic Anderson MD Work Phone: [facility] Work Phone: 12-17-2015 influenza, injectabl e, quadrivalent, preservative free Mouniak [place] DO Work Phone: [facility] 12-31-2014 pneumococcal conjuga te vaccine, 13 valent Mounika [place] DO Work Phone: [facility] 11-30-2014 influenza, seasonal, injectable, preservative free Mounika [place] DO Work Phone: [facility] 07-11-2009 pneumococcal polysaccharide vaccine, 23 valent Nic Anderson MD Work Phone: [facility] NEGATED: Highlighted row has not occurred!02-23-2019 influenza, high dose seasonal, preservative-free DO Roney Leroy Work Phone: [facility] Payers Date Payer Category Payer Medicare (Managed Care) 1.2. [id number] 2022 Medicare [id number] 2021 Medicare [employer] MEDICARE A ETNA MEDICARE PPO [id number] 2021-Present [phone] [address] [place] [address] PPO [id number] 2018 Self-pay [id number] 2017 Medicare [id number] 1959 Medicare [id number] 2.16.840.1.838773.19 1942 Unknown [id number] 2.16.840.1.810847.3.579.2.5 93 1942 Unknown [id number] 2.16.840.1.659742.3.579.2.5 93 1942 Unknown [id number] 2.16.840.1.614652.3.579.2.5 93 1942 Unknown [id number] 2.16.840.1.551848.3.579.2.1 244 1942 Unknown [id number] 2.16.840.1.977533.3.579.2.7 27 1942 Unknown [id number] 2.16.840.1.951146.3.579.2.7 27 1942 Unknown [id number] 2.16.840.1.586250.3.579.2.1 259 1942 Unknown [id number] 2.16.840.1.296178.3.579.2.1 259 1942 Unknown [id number] 2.16.840.1.312329.3.579.2.1 259 1942 Unknown [id number] 2.16.840.1.837658.3.579.2.1 1942 Unknown [id number] 2.16.840.1.417351.3.579.2.1 1942 Unknown [id number] 2.16.840.1.420914.3.579.2.1 1942 Unknown [id number] 2.16.840.1.402407.3.579.2.1 1942 Unknown [id number] 2.16.840.1.415906.3.579.2.1 1942 Unknown [id number] 2.16.840.1.547971.3.579.2.1 1942 Unknown [id number] 2.16.840.1.700388.3.579.2.1 1942 Unknown [id number] 2.16.840.1.863081.3.579.2.1 1942 Unknown [id number] 2.16.840.1.227834.3.579.2.1 1942 Unknown [id number] 2.16.840.1.122321.3.579.2.1 1942 Unknown [id number] 2.16.840.1.959975.3.579.2.1 1942 Unknown [id number] 2.16.840.1.007410.3.579.2.1 1942 Unknown [id number] 2.16.840.1.258333.3.579.2.1 1942 Unknown [id number] 2.16.840.1.584323.3.579.2.1 259 1942 Unknown [id number] 2.16.840.1.124889.3.579.2.1 259 1942 Unknown [id number] 2.16.840.1.000744.3.579.2.1 259 Medicare [id number] Private Health Insurance MEB NVTYD [id number] Private Health Insurance [id number] 2.16.840.1.228234.19 Unknown [id number] Unknown [id number] 2.16.840.1.949996.3.579.2.5 31 Social History Date Type Detail Facility Start: 12-10-2018 End: 11-29-2023 Tobacco smoking status NHIS Ex-smoker (finding) [facility] Start: 1940 Sex Assigned At Female [facility] End: 06-21-1974 History of tobacco use Current smoker [facility] Start: 05-06-2021 End: 10-05-2024 Alcohol intake Current drinker of alcohol (finding) [facility] Start: 1940 Sex Assigned At Not on file [facility] Start: 03-20-2020 End: 12-08-2022 Exposure to SARS-CoV-2 (event) Not sure [facility] Start: 11-28-2018 End: 08-03-2022 Sex Assigned At [employer] Other End: 06-21-1974 History of tobacco use Cigarette Smoker [facility] Start: 02-22-2013 End: 11-29-2023 Tobacco use and exposure Smokeless tobacco non-user [facility] Start: 01-10-2012 End: 04-18-2024 Tobacco smoking status Never [facility] [place] Start: 11-24-2021 Tobacco Comment socially only [facility] Start: 11-28-2018 End: 08-03-2022 History of Social function [facility] Start: 12-08-2022 Alcohol Comment special occasions [facility] Work Phone: Start: 05-19-2022 End: 08-13-2022 Tobacco smoking status NHIS Never smoked tobacco [facility] Within the last year , have you been afraid of your partner or ex-partner? No [facility] Do you belong to any clubs or organizations such as taoist groups, unions, fraternal or athletic groups, or [...] Alcohol Comment caffeine 1-2 cups/day [facility] Start: 05-11-2024 End: 05-11-2024 Sex Female (finding) [facility] Medical Equipment Procedure Code Equipment Code Equipment Origin al Text Equipment Identifier Dates Bernard Bn Smplx Hv Gentamicin Fd - [id number] Start: 06-25-2016 Bernard Bn Smplx Hv Gentamicin Fd - [id number] Start: 06-25-2016 Cornea Tissue Pre-Loaded Dmek - [id number] Start: 09-09-2020 Cornea Tissue Pre-Loaded Dmek - [id number] Start: 04-28-2021 Gas Ispan Constellation Intraocular Vision System Sf6 125gm - [id number] Start: 09-09-2020 Gas Ispan Constellation Intraocular Vision System Sf6 125gm - [id number] Start: 04-28-2021 Lens Iol 0d +23 Savi Uv Abs - [id number] Start: 09-09-2020 Lens Iol 0d +23 Savi Uv Abs - [id number] Start: 04-28-2021 Component Person a 7 Standard Cocr Femoral Cemented Posterior - [id number] Start: 06-25-2016 Component 32mm A ll Poly Patellar Psn - [id number] Start: 06-25-2016 Surface Persona 6-9 Cd Vivacit-E 10mm Articular Constrain Posterior - [id number] Start: 06-25-2016 Baseplate Person a 5d D Tivanium Tibial Cemented Stem Knee Left - [id number] Start: 06-25-2016 Goals Date Patient Goal Desired Activity /State Functional Status Date Assessment Result Facility 11-18-2021 Functional Status N/A [facility] 06-26-2016 Are you deaf, or do you have serious difficulty hearing No 06/26/2016 5:00 PM EDT Ying Justin RN No [facility] 06-26-2016 Are you blind, or do you have serious difficulty seeing, even when wearing glasses No 06/26/2016 5:00 PM JOCELINT Ying Justin RN No [facility] 06-26-2016 Do you have serious difficulty walking or climbing stairs No 06/26/2016 5:00 PM JOCELINT Ying Justin, [place] No [facility] 06-26-2016 Do you have difficul ty dressing or bathing No 06/26/2016 5:00 PM JOCELINT Ying Justin, [place] [facility] 06-26-2016 Because of a physica l, mental, or emotional condition, do you have difficulty doing errands alone such as visiting a physician's office or shopping No 06/26/2016 5:00 PM JOCELINT Ying Justin RN No [facility] Mental Status Date Assessment Result Facility 06-26-2016 Because of a physica l, mental, or emotional condition, do you have serious difficulty concentrating, remembering, or making decisions No 06/26/2016 5:00 PM Ying Hardin RN No [facility] Clinical Notes 03-17-2016 to 10-05-2024 Patient InstructionsBrando Shields MD - 10/05/2024 11:18 AM EDTTelephone Encounter - Anabelle S Keita, AUD - 09/20/2024 2:30 PM EDTTelephone Encounter - Anabelle Keita, AUD - 09/20/2024 2:30 PM EDT Note Date & Type Note Facility 10-05-2024 Note Date of Procedure 10/05/2024 [place] Protocol Safety Checklist A moment of CARE [...] Procedure Medications None. Home Going Prescription None. [facility] 10-05-2024 Note Date of Procedure 10/05/2024 [place] Protocol Safety Checklist A moment of CARE [...] Procedure Medications None. Home Going Prescription None. [facility] 10-05-2024 Instructions Brando Shields MD - 10/05/2024 11:41 AM EDT [...] than dabbing lightly with a tissue An axhf-nno-upraifs pain reliever (i.e. Tylenol) can be used [...] If it is after hours please call [phone] which will give instructions on how to reach the eye doctor electronic warfare linguist documented in this encounter [facility] 10-05-2024 Note Date of Procedure 10/05/2024. OCT Macula Interpretation Right Eye Abnormal foveal contour. Findings include Drusen, RPE Irregularity, Atrophy; Negative for Intraretinal fluid, Subretinal fluid. Left Eye Abnormal foveal contour. Findings include Drusen, RPE Irregularity, Atrophy; Negative for Intraretinal fluid, Subretinal fluid. Interval Change Right Eye Stable. Left Eye Stable. [facility] 10-05-2024 Note Date of Procedure 10/05/2024. Interpretation Right Eye Hypofluorescence. Left Eye Hypofluorescence. [facility] 10-05-2024 Note HNO ID: [id number] Author: BRANDO SHIELDS MD Service: ? Author Type: Physician Type: Progress Notes Filed: 10/05/2024 13:01 Note Text: Referred by Dr. Anderson Age [...] - S/p DMEK both eyes (Danielle) - Gtts: Pred Forte daily OU - Continue f/u dr. Anderson Pseudophakia, both eyes - s/p YAG OD [...] agree with all of its relevant components. [facility] 10-05-2024 History of Present illness Narrative Referred by [...] - S/p DMEK both eyes (Goshe) - Gtts: Pred Forte daily OU - Continue f/u dr. Anderson Pseudophakia, both eyes - s/p YAG OD [...] its relevant components. documented in this encounter [facility] 09-20-2024 Telephone encounter Note Patient's new rapid exchanged (L) aid was received from [employer] (SN: [id number]). Placed on senior quality engineer that was being held for pt in [facility]. Programmed to user settings. Called pt for shrimp picker. She will shrimp picker in [place] office on 09-21-24. [place] for service [facility] Work Phone: 09-20-2024 Miscellaneous Notes Patient's new rapid exchanged (L) aid was received from [employer] (SN: [id number]). Placed on senior quality engineer that was being held for pt in [employer]. Programmed to user settings. Called pt for shrimp picker. She will shrimp picker in [place] office on 09-21-24. [place] for service documented in this encounter [facility] 09-13-2024 Note HNO ID: [id number] Author: DAVID TOMLIN OD Service: ? Author Type: WEATHER REPORTER Type: Progress Notes Filed: 09/13/2024 11:29 Note Text: ASSESSMENT/PLAN: 1. History of YAG laser capsulotomy of lens, right - ICD9: V45.61, ICD10: Z98.41 (primary diagnosis) 2. Pseudophakia of both eyes - ICD9: V43.1, ICD10: Z96.1 Doing well p YAG Pt not anticipating New specs at this time Will update refraction as needed Pt ed on primary acuity limitation 2/2 AMD rather than spec changes 3. 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) - ICD9: 362.52, 362.16, ICD10: H35.3231 4. 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 History of Descemet membrane endothelial keratoplasty (DMEK) - ICD9: V42.5, ICD10: Z94.7 Continue Pred once a day Both eyes 6. Dry eye syndrome of both eyes - ICD9: 375.15, ICD10: H04.123 7. 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 During this surgery, after the clouded lens is removed, a thin portion of the lens called the capsule is left in place. This membrane, which is similar in consistency to a sandwich bag, is left in place in order to give additional support for the lens implant. Over time, this clear membrane may become cloudy or hazy, similar to a cataract, before it was removed. If this occurs, images may become blurred again or glare may be created in the vision. Common complaints when this happens are decreased vision, increased glare, or an increase in the amount of light needed to read. Although this condition will not harm the health of the eye if left untreated, it can prove to be a nuisance. Not all patients will develop a clouded capsule, but if this occurs, the problem can be corrected with a simple, non-invasive procedure known as a YAG laser capsulotomy. If you elect to have this procedure, dilating drops are given to open the pupil. You will be asked to sit in a machine similar to the one that is used to check you eye pressure in an eye exam. The doctor then shines a red, aiming laser beam that can be seen by our eyes. The invisible laser light would then be activated to make a small opening in the cloudy capsule to restore a clear image to the retina. While this is being performed, the doctor will instruct you where to look and when to blink. You will hear a series of clicks when the doctor is performing the laser procedure. You should not feel any discomfort. In most cases, if the health of the eye is normal, you should see an improvement in your vision within 24 hours. Immediately afterward, you will be blurry until the dilating drops wear off, so we recommend you come with a transit bus driver. You will then be scheduled for a follow up in approximately one week. If you notice any of the following symptoms of retinal detachment, please call our office at : - Flashes of light - Increased number of floaters or large floaters - Curtains, veils, or spider web pattern over vision documented in this encounter [facility] 09-07-2024 Note HNO ID: [id number] Author: JESSICA GARCIA MD Service: ? Author Type: Physician Type: Progress Notes Filed: 09/07/2024 15:41 Note Text: The documentation for this note was completed by Radha Pickens, COA acting as a scribe for Jessica GARCIA MD. 09/07/2024 3:14 PM. ASSESSMENT / PLAN: 1. Posterior capsular opacity right eye -YAG capsulotomy right eye today -Patient educated on posterior capsular opacity following cataract surgery. The risks, benefits, alternatives, personnel, and possible complications related to yttrium aluminum garnet (YAG) capsulotomy discussed with patient. Explained that risks include but are not limited to: increase in intraocular pressure, retinal tears/detachment, dislocation of the intraocular lens, and/or need for further procedures. Patient expresses understanding and elects to proceed with YAG capsulotomy performed by Dr. Garcia. Informed consent form signed by physician and patient. Literature regarding signs and symptoms of retinal detachment offered. -The patient was offered a surgery/procedure at a [facility] facility. The surgeon/proceduralist and patient have discussed in detail the risk of exposure to and/or potential harm posed by the COVID-19 virus with having a surgery/procedure at this time versus the risk of delaying the surgery/procedure. It is not possible to know either the risk of delaying the surgery or procedure or chance of getting an infection with perfect accuracy, but a joint decision was made between the patient and the surgeon/proceduralist to proceed at this time with the scheduled surgery/procedure as indicated on the consent form. -F/U 1-2 weeks with medical staff credentialing coordinator (Fred) I have confirmed and edited as necessary the relevant HPI, ophthalmic history, ROS, and the neuro exam findings as obtained by others. I have seen and examined Fantasma Lewis. I have discussed the case and the management of this patient's care with the Resident/Fellow, if applicable. I also have reviewed and agree with the assessment and plan as stated above and agree with all of its relevant components. Jessica GARCIA MD September 07, 2024 3:14 PM [facility] 09-07-2024 History of Present illness Narrative The documentation for this note was completed by DAISY Gutiérrez acting as a scribe for Jessica GARCIA MD. 09/07/2024 3:14 PM. ASSESSMENT / PLAN: 1. Posterior capsular opacity right eye -YAG capsulotomy right eye today -Patient educated on posterior capsular opacity following cataract surgery. The risks, benefits, alternatives, personnel, and possible complications related to yttrium aluminum garnet (YAG) capsulotomy discussed with patient. Explained that risks include but are not limited to: increase in intraocular pressure, retinal tears/detachment, dislocation of the intraocular lens, and/or need for further procedures. Patient expresses understanding and elects to proceed with YAG capsulotomy performed by Dr. Garcia. Informed consent form signed by physician and patient. Literature regarding signs and symptoms of retinal detachment offered. -The patient was offered a surgery/procedure at a [facility] facility. The surgeon/proceduralist and patient have discussed in detail the risk of exposure to and/or potential harm posed by the COVID-19 virus with having a surgery/procedure at this time versus the risk of delaying the surgery/procedure. It is not possible to know either the risk of delaying the surgery or procedure or chance of getting an infection with perfect accuracy, but a joint decision was made between the patient and the surgeon/proceduralist to proceed at this time with the scheduled surgery/procedure as indicated on the consent form. -F/U 1-2 weeks with medical staff credentialing coordinator (Fred) I have confirmed and edited as necessary the relevant HPI, ophthalmic history, ROS, and the neuro exam findings as obtained by others. I have seen and examined Fantasma Lewis. I have discussed the case and the management of this patient's care with the Resident/Fellow, if applicable. I also have reviewed and agree with the assessment and plan as stated above and agree with all of its relevant components. Jessica GARCIA MD September 07, 2024 3:14 PM ASSESSMENT/PLAN: 1. PCO (posterior capsular opacification), right - ICD9: 366.50, ICD10: H26.491 (primary diagnosis) - YAG CAPSULOTOMY OD (RIGHT EYE) Pt educated. Yag today with AH. Pt understands guarded prognosis due to AMD. 2. Pseudophakia - ICD9: V43.1, ICD10: Z96.1 3. History of Descemet membrane endothelial keratoplasty (DMEK) - ICD9: V42.5, ICD10: Z94.7 H/o combo DMEK/PCIOL OU by Goshe. S/p yag OS 3. 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) - ICD9: 362.52, 362.16, ICD10: H35.3231 Dr. Shields following. Continue AREDS2 Lizzy Galvan OD I have confirmed and edited as necessary the relevant ophthalmic history, ROS, and the exam findings as obtained by others. I have seen and examined this patient. I have discussed the case and the management of this patient's care with the resident or fellow as appropriate. I also have reviewed and agree with the assessment and plan as stated above and agree with all of its relevant components. Lizzy Galvan OD September 07, 2024 2:49 PM documented in this encounter [facility] 09-07-2024 Note HNO ID: [id number] Author: LIZZY GALVAN OD Service: ? Author Type: WEATHER REPORTER Type: Progress Notes Filed: 09/07/2024 15:41 Note Text: ASSESSMENT/PLAN: 1. PCO (posterior capsular opacification), right - ICD9: 366.50, ICD10: H26.491 (primary diagnosis) - YAG CAPSULOTOMY OD (RIGHT EYE) Pt educated. Yag today with AH. Pt understands guarded prognosis due to AMD. 2. Pseudophakia - ICD9: V43.1, ICD10: Z96.1 3. History of Descemet membrane endothelial keratoplasty (DMEK) - ICD9: V42.5, ICD10: Z94.7 H/o combo DMEK/PCIOL OU by Goshe. S/p yag OS 3. 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) - ICD9: 362.52, 362.16, ICD10: H35.3231 Dr. Shields following. Continue AREDS2 Lizzy Galvan OD I have confirmed and edited as necessary the relevant ophthalmic history, ROS, and the exam findings as obtained by others. I have seen and examined this patient. I have discussed the case and the management of this patient's care with the resident or fellow as appropriate. I also have reviewed and agree with the assessment and plan as stated above and agree with all of its relevant components. Lizzy Galvan OD September 07, 2024 2:49 PM [facility] 09-06-2024 History of Present illness Narrative Images from the original note were not included. [address], [address] [facility], [address] P: [phone] F: [phone] HPI Historian of HPI: patient Fantasma Lewis is a 84 y.o. female who presents today to the Urgent Care with the following complaints and denials which have been present for 1 day(s) C/O Denies Symptom Comments [] [x] Runny Nose [] [x] Difficulty Swallowing [] [x] Sore Throat [] [x] Cough [x] [] Ear Issue Right ear [] [x] Fever [] [x] Chills [] [x] Nasal Congestion [] [x] Myalgia [] [x] Sinus Pain [] [x] Sinus Pressure Additional Comments: pt has not taken any OTC medications Pt believes she has a piece of her hearing aid stuck inside of her right ear. ROS A complete system ROS was performed and negative aside from the pertinent positives noted in the HPI and PE. PHYSICAL EXAM Examination General Examination: General Examination: alert, oriented, normal affect, well appearing, in no acute distress, well developed, well nourished Head: normocephalic, atraumatic Eyes: sclera non-icteric Ears: Lt TM WNL Rt TM EAC foreign body noted. Removal of foreign body successful, Rt TM and EAC WNL Nose:Clear Oral Cavity: mucosa moist, no lesions Throat: clear Heart: no murmurs, regular rate and rhythm, S1, S2 normal Lungs: clear to auscultation bilaterally Extremities: no edema, no cyanosis Neurologic: alert and oriented Psych: alert, oriented, cognitive function intact, cooperative with exam Procedures Foreign Body Removal: Anesthesia: None Procedure: Foreign body removed, with alligator forceps Location of Foreign Body: Right ear HPI, ROS, and PE reviewed and amended by Dr. Moses Richards as necessary. Written by CARMELITA Bello TREATMENT PLAN 1. Foreign body of right ear, initial encounter Dx reviewed. Foreign body successfully removed. documented in this encounter [facility] 08-28-2024 Telephone encounter Note Signed- Thank you! [facility] 08-28-2024 Miscellaneous Notes Signed- Thank you! Prolia CAM pended. documented in this encounter [facility] 08-28-2024 Telephone encounter Note Prolia CAM pended. [facility] 08-24-2024 History of Present illness Narrative Fantasma Lewis 1940 Fantasma Lewis is a 84 y.o. female presents with chief complaint of 6th poy Rt. lumpectomy (W/mamms) HPI: YUE Zamudio is 6yrs post Rt. Lumpectomy, she is doing well, no breast issues SUBJECTIVE: MEDICATIONS: ALLERGIES Current Outpatient Medications Medication Instructions albuterol HFA 90 mcg/act inhaler azithromycin (Zithromax) 250 MG tablet Z-Pack. Take 2 tablets on day 1, and one tablet per day on days 2-5. chlorthalidone (HYGROTON) 25 mg, Oral, Daily cholecalciferol (VITAMIN D-3) 2,000 Units, Daily dicyclomine (Bentyl) 20 MG tablet DULoxetine (Cymbalta) [address] capsule Elderberry-Vitamin C-Zinc (All My Data HEALTH GUMMY PO) Take by mouth levothyroxine (Synthroid, Levoxyl) 88 MCG tablet losartan (COZAAR) 100 mg, Oral, Daily meloxicam (Mobic) 15 MG tablet Multiple Vitamins-Minerals (EYE VITAMINS PO) Take by mouth omeprazole (PriLOSEC) [address] capsule Prolia 60 mg, Once Allergies Allergen Reactions Hydroxychloroquine Other Reaction(s): Other: See Comments Eye changes on exam 06/2020 (unable to clarify if changes from macular degeneration) PAST MEDICAL HISTORY: SOCIAL HISTORY SURGICAL HISTORY: Past Medical History: Diagnosis Date Appendicitis Arthritis Asthma (HCC) Bronchitis Cataract Chicken pox Goiter Gout History of back surgery History of breast biopsy left breast, benign History of colonoscopy 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 Hypothyroid Kidney stone removed Measles Microcalcification of right breast on mammogram 09/29/2023 Migraine Mumps Pneumonia (HHS-HCC) (HHS-HCC) S/P knee replacement right partial Shingles Social History Tobacco Use Smoking status: Never Smokeless tobacco: Never Substance Use Topics Alcohol use: Yes Comment: caffeine 1-2 cups/day Drug use: Never Past Surgical History: Procedure Laterality Date APPENDECTOMY BREAST BIOPSY BREAST LUMPECTOMY with biopsy COLONOSCOPY EYE SURGERY cataract and cornea transplant KIDNEY SURGERY 2007 removal of kindey stone KNEE SURGERY 2007 knee surgery LITHOTRIPSY 06/2017 LITHOTRIPSY 11/2020 VAGINAL DELIVERY X 3 - 1965, 1966, 1967 FAMILY HISTORY Family History Problem Relation Name Age of Onset Diabetes Mother Heart disease Mother Parkinsonism Father Hypertension Father Osteoarthritis Sibling Melanoma Sibling Hypertension Sibling Heart disease Sibling Cancer Sibling Diabetes Son REVIEW OF SYMPTOMS: Review of Systems Constitutional: Negative for diaphoresis and unexpected weight change. HENT: Positive for hearing loss. Negative for tinnitus and voice change. Respiratory: Negative for shortness of breath. Cardiovascular: Negative for chest pain and palpitations. Gastrointestinal: IBS - seen by GI Musculoskeletal: Positive for arthralgias. Neurological: Positive for headaches. Negative for dizziness and seizures. All other systems reviewed and are negative. Hematological: Negative for adenopathy. Does not bruise/bleed easily. OBJECTIVE: Visit Vitals Ht 5' 3 Wt 156 lb BMI 27.63 kg/m Smoking Status Never BSA 1.77 m Physical Exam Exam conducted with a store planner present. HENT: Head: Normocephalic. Cardiovascular: Rate and Rhythm: Normal rate and regular rhythm. Pulmonary: Effort: Pulmonary effort is normal. Breath sounds: Normal breath sounds. Chest: Comments: Bilateral supraclavicular, infraclavicular, bicipital and axillary lymph nodes were found to be normal. Each breast was examined in the sitting and supine position, there was no evidence of masses, dimpling or discharge in either breast. The right breast has skin thickening around the NAC from RT Abdominal: General: Abdomen is flat. Bowel sounds are normal. Palpations: Abdomen is soft. Skin: General: Skin is warm and dry. Neurological: Mental Status: She is alert. ASSESSMENT AND PLAN: Assessment/Plan Diagnoses and all orders for this visit: Personal history of malignant neoplasm of breast I reviewed her mamm's done 06/26/24 which were negative. From a breast surgical standpoint, she is doing well. I'll see her in 1 year for recheck documented in this encounter [facility] 08-21-2024 Telephone encounter Note Pt read Swag Of The Month message. [facility] 08-21-2024 Miscellaneous Notes Pt read Swag Of The Month message. Please call patient Thank you for the update. The borderline calcium is likely from the water pill- will monitor with primary care provider. Not concerning :) Thank you. Please Call patient if MyChart note not read to review results/released to My Chart if tests completed at [facility]: normal labs. Continue same calcium and vitamin D intake with food. Happy to further review and discuss at follow up visit. Thank you. 09/04/24 due for prolia with nurse 08/16/24 normal calcium 10.1, vitamin D 45.8; 03/06/24 prolia with nurse 03/02/24 borderline calcium 10.3;normal rest of cmp, cbc, esr 13, crp 0.3, vitamin D 47.1, uric acid 3.7; documented in this encounter [facility] 08-19-2024 Telephone encounter Note Please call patient Thank you for the update. The borderline calcium is likely from the water pill- will monitor with primary care provider. Not concerning :) Thank you. [facility] 08-17-2024 Telephone encounter Note Please Call patient if MyChart note not read to review results/released to My Chart if tests completed at [facility]: normal labs. Continue same calcium and vitamin D intake with food. Happy to further review and discuss at follow up visit. Thank you. 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 September 11, 2024 1:28pm Encounter for monitoring aromatase inhibitor therapy chronic September 11, 2024 1:28pm Screening for osteoporosis chronic September 11, 2024 1:28pm 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 September 11, 2024 1:29pm Encounter for monitoring aromatase inhibitor therapy chronic September 11, 2024 1:29pm Screening for osteoporosis chronic September 11, 2024 1:29pm Microcalcification of right breast on mammogram resolved September 11, 2024 1:29pm [facility] Work Phone: 1(526) 336-605707-07-2025 Evaluation note* Diagnosis Onset Date Resolution Status Admit Date Chronic GERD acute August 14 9:38am Dyspepsia acute August 14, 2024 9:38am Irritable bowel syndrome wit h both constipation and diarrhea acute J henry 2024 9:38am Nausea acute August 14, 2024 9:38am 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 September 11, 2024 1:28pm Encounter for monitoring aromatase inhibitor therapy chronic 2024 1:28pm Screening for osteoporosis chronic September 11, 2024 1:28pm 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 September 11, 2024 1:29pm Encounter for monitoring aromatase inhibitor therapy chronic 2024 1:29pm Screening for osteoporosis chronic September 11, 2024 1:29pm Microcalcification of right breast on mammogram resolved September 11, 2024 1:29pm Chronic GERD acute September 29, 2024 10:44am Irritable bowel syndrome wit h both constipation and diarrhea acute A ugust 2024 10:44am [facility] Work Phone: 1(485) 501-737407-03-2025 Telephone encounter Note* Telephone Encounter - Felicia Perry LPN - 08/10/2024 2:58 PM EDT Patient has been scheduled. [facility]07-03-2025 Miscellaneous Notes* Telephone Encounter - Felicia Perry LPN - 08/10/2024 2:58 PM EDT Patient has been scheduled. * Telephone Encounter - Chalo Menjivar MD - 08/10/2024 2:42 PM EDT Please call patient/family Please remind patient osteoporosis treatment prolia injection is every 6months with nurse. Last prolia 02/2024. Please assist with scheduling. Thank you. * Telephone Encounter - Jewell Miller - 08/10/2024 10:23 AM EDT Called pt regarding prolia injection where she advised that she doesn't feel that she needs anotherprolia injection. Patient demonstrated confusion on what the doctor's instructions were in regards to frequency of prolia injections. She is also scheduled for office visit on 10/23/2024. Advised patient I will send message to Dr. Menjivar to review this and that staff will follow up with her on cell phone at [phone] per her request. Please review and reach out to pt accordingly. Please reroute back to scheduling if further appointment needed. * Telephone Encounter - Swathi Mcclure - 08/10/2024 9:34 AM EDT Pt requesting to schedule next prolia injection. Patient has been identified by name and birthdate. Duration of symptoms: N/A Person calling: self Call patient at: on cell [phone] (home) [phone] (cell) Was an appointment scheduled: No Closing statement: Results or non-symptom based questions: Thank you for calling [facility], your call will be returned within the next business day. Swathi Morgan [facility] Tele[facility] encounter Note * Telephone Encounter - Chalo Menjivar MD - 08/10/2024 2:42 PM EDT Please call patient/family Please remind patient osteoporosis treatment prolia injection is every 6months with nurse. Last prolia 02/2024. Please assist with scheduling. Thank you. [facility]07-03-2025 Telephone encounter Note* Telephone Encounter - Jewell Miller - 08/10/2024 10:23 AM EDT Called pt regarding prolia injection where she advised that she doesn't feel that she needs anotherprolia injection. Patient demonstrated confusion on what the doctor's instructions were in regards to frequency of prolia injections. She is also scheduled for office visit on 10/23/2024. Advised patient I will send message to Dr. Menjivar to review this and that staff will follow up with her on cell phone at [phone] per her request. Please review and reach out to pt accordingly. Please reroute back to scheduling if further appointment needed. [facility]07-03-2025 Telephone encounter Note* Telephone Encounter - Swathi Mcclure - 08/10/2024 9:34 AM EDT Pt requesting to schedule next prolia injection. Patient has been identified by name and birthdate. Duration of symptoms: N/A Person calling: self Call patient at: on cell [phone] (home) [phone] (cell) Was an appointment scheduled: No Closing statement: Results or non-symptom based questions: Thank you for calling [facility], your call will be returned within the next business day. Swathi Morgan [facility]05-22-2025 NoteHNO ID: [id number] Author: BRANDO SHIELDS MD Service: ? Author Type: Physician Type: Progress Notes Filed: 06/29/2024 11:01 Note Text: Referred by Dr. Anderson Age related macular degeneration - Smoking history: quit a long time ago; Family history: yes - Amsler grid and AREDS2 use reviewed. 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 - VA at start of therapy 20/40 - s/p Avastin, 12 weeks - OCT with resolved fluid / stable atrophy/RPE changes - VA stable Plan = - Avastin OD LEFT EYE - Neovascular with GA - atrophy sup to fovea - VA start of tx 20/30 - s/p Avastin, 12 weeks - OCT with resolved trace sliver of subretinal fluid inf, not a definitive CNVM - VA stable Plan = - Avastin OS F/U - Extend 13-14 weeks dilate / OCT OU / Optos / FAF OU and assess GA Posterior vitreous detachment, BOTH eyes - No peripheral pathology seen that requires treatment - Retinal detachment precautions reviewed with patient 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 Anderson Pseudophakia, both eyes PCO OD - Recommend YAG OD in [place]; [facility] but too [facility] - Monitor Dry eye syndrome, both eyes [...] agree with all of its relevant components. 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 June 26, 2024 10:07am Encounter for monitoring rosalio matase inhibitor therapy chronic June 26, 2024 10:07am Screening for osteoporosis chronic June 26, 2024 10:07am Microcalcification of right breast on mammogram resolved June 26, 2024 10:07am Chronic GERD acute August 14 9:38am Dyspepsia acute August 14, 2024 9:38am Irritable bowel syndrome wit h both constipation and diarrhea acute August 142024 9:38am Nausea acute August 14, 2024 9:38am [facility] Work Phone: 1(464) 301-304803-11-2025 NoteReminders From: Mitra Ding To: - Administrative; Sent: 04/18/2024 14:02:17 EDT Show up: 08/13/2025 14:01:00 EDT Subject: 18 mo kub Due Date/Time: 10/22/2025 14:02:00 EDT Reminder/Recall SCHEDULE Jil/ SILVIA IN 18 MO [facility]03-11-2025 NotePatient Education Nephrology Dietary Guidelines to Help Prevent Kidney Stones Kidney stones are deposits of minerals and salts that form inside your kidneys. Your risk of developing kidney stones may be greater depending on your diet, your lifestyle, the medicines you take, and whether you have certain medical conditions. Most people can lower their risks of developing kidney stones by following these dietary guidelines. Your dietitian may give you more specific instructions depending on your overall health and the type of kidney stones you tend to develop. What are tips for following this plan? Reading food labels ??? Choose foods with no salt added or low-salt labels. Limit your salt (sodium) intake to lessthan 1,500 mg a day. ??? Choose foods with calcium for each meal and snack. Try to eat about 300 mg of calcium at each meal. Foods that contain 200?500 mg of calcium a serving include: ? 8 oz (237 mL) of milk, wiytfpz-bbfsbjwzhadi-dpdsj milk, and calcium- fortifiedfruit juice. Calcium-fortified means that calcium has been [...] much calcium is recommended for you. Shopping ??? Buy plenty of fresh fruits and vegetables. Most people do not need to avoid fruits and vegetables, even if these foods contain nutrients that may contribute to kidney stones. ??? When shopping for convenience foods, choose: ? Whole pieces of fruit. ? Pre-made salads with dressing on the side. ? Low-fat fruit and yogurt smoothies. ??? Avoid buying frozen meals or prepared deli foods. These can be high in sodium. ??? Look for foods with live cultures, such as yogurt and kefir. ??? Choose high-fiber grains, such as whole-wheat breads, oat bran, and wheat cereals. Cooking ??? Do not add salt to food when cooking. Place a salt shaker on the table and allow each person toadd their own salt to taste. ??? Use vegetable protein, such as beans, textured vegetable protein (TVP), or tofu, instead of meat in pasta, casseroles, and soups. Meal planning ??? Eat less salt, if told by your dietitian. To do this: ? Avoid eating processed or pre-made food. ? Avoid eating fast food. ??? Eat less animal protein, including cheese, meat, poultry, or fish, if told by your dietitian. To do this: ? Limit the number of times you have meat, poultry, fish, or cheese each week. Eat a diet free of meat at least 2 days a week. ? Eat only one serving each day of meat, poultry, fish, or seafood. ? When you prepare animal proteins, cut pieces into small portion sizes. For most meat and fish, one serving is about the size of the palm of your hand. ??? Eat at least five servings of fresh fruits and vegetables each day. To do this: ? Keep fruits and vegetables on hand for snacks. ? Eat one piece of fruit or a handful of berries with breakfast. ? Have a salad and fruit at lunch. ? Have two kinds of vegetables at dinner. ??? You may be told to limit foods that are high in a substance called oxalate. These include: ? Spinach (cooked), rhubarb, beets, sweet potatoes, and Estonian chard. ? Peanuts. ? Potato chips, danish fries, and baked potatoes with skin on. ? Nuts and nut products. ? Chocolate. ??? If you regularly take a diuretic medicine, make sure to eat at least 1 or 2 servings of fruits or vegetables that are high in potassium each day. These include: ? Avocado. ? Banana. ? Mccormick, prune, carrot, or tomato juice. ? Baked potato. ? Cabbage. ? Beans and split peas. Lifestyle ??? Drink enough fluid to keep your urine pale yellow. This is the most important thing you can do.Spread your fluid intake throughout the day. ??? If you drink alcohol: ? Limit how much you have to: ? 0?1 drink a day for women who are not . ? 0?2 drinks a day for men. ? Know how much alcohol is in your drink. In the [place] one drink equals one 12 oz bottle of beer (355 mL), one 5 oz glass of wine (148 mL), or one 1? oz glass of hard liquor (44 mL). ??? Lose weight if told by your health care provider. Work with your dietitian to find an eating plan and weight loss strategies that work best for you. General information ??? Talk to your health care provider and dietitian about taking daily supplements. Depending on your health and the cause of your kidney stones, you may be told: ? Do not take high-dose supplements of vitamin C (1,000 mg a day or more). ? To take a calcium supplement. ? To take a daily probiotic supplement. ? To take other supplements such as magnesium, fish oil, or vitamin B6. ??? Take ahgk-oxr-pymkntr and prescription medicines only as told by your health (more content not included)...[facility]03-06-2025 NoteHNO ID: [id number] Author: NIC ANDERSON MD Service: ? Author Type: Physician Type: Progress Notes Filed: 04/14/2024 08:22 Note Text: Encounter Diagnosis ICD-10-CM 1. Pseudophakia Z96.1 fluorescein-benoxinate 0.3-0.4 % 1 Drop (FLURESS) proparacaine 0.5 % 1 Drop (ALCAINE) tropicamide 1 % 1 Drop (MYDRIACYL) PHENYLephrine 2.5 % 1 Drop (AK-DILATE, CHEY-SYNEPHRINE) 2. PCO (posterior capsular opacification), bilateral H26.493 fluorescein-benoxinate 0.3-0.4 % 1 Drop (FLURESS) proparacaine 0.5 % 1 Drop (ALCAINE) tropicamide 1 % 1 Drop (MYDRIACYL) PHENYLephrine 2.5 % 1 Drop (AK-DILATE, CHEY-SYNEPHRINE) 3. History of Descemet membrane endothelial keratoplasty (DMEK) Z94.7 fluorescein-benoxinate 0.3-0.4 % 1 Drop (FLURESS) proparacaine 0.5 % 1 Drop (ALCAINE) tropicamide 1 % 1 Drop (MYDRIACYL) PHENYLephrine 2.5 % 1 Drop (AK-DILATE, CHEY-SYNEPHRINE) 4. 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) H35.3231 fluorescein-benoxinate 0.3-0.4 % 1 Drop (FLURESS) proparacaine 0.5 % 1 Drop (ALCAINE) tropicamide 1 % 1 Drop (MYDRIACYL) PHENYLephrine 2.5 % 1 Drop (AK-DILATE, CHEY-SYNEPHRINE) ABMD OU - s/p SK OD S/p DMEK OU - pred daily OU CNVM OD - metamorphopsia first noted Jan 2023 - likely d/t wet AMD - Follows with Dr Shields, recent Avastin OU Dry AMD OS - GA superior to fovea - continue AREDS2 BID PCO OD -Glares today, 2+ PCO -Consider YAG Capsulotomy offer option of yag capsulotomy OD patient declines today due to logistical issues but can call to schedule or have done at next annual follow-up if prefers continue follow-up with retina as per above next visit mrx iop dfe ou possible yag OD I have confirmed and edited as necessary [...] with all of its relevant components. Nic Anderson, [facility]03-06-2025 History of Present illness Narrative* Nic Anderson MD - 04/13/2024 1:01 PM EST Encounter Diagnosis ICD-10-CM 1. Pseudophakia Z96.1 fluorescein-benoxinate 0.3-0.4 % 1 Drop (FLURESS) proparacaine 0.5 % 1 Drop (ALCAINE) tropicamide 1 % 1 Drop (MYDRIACYL) PHENYLephrine 2.5 % 1 Drop (AK-DILATE, CHEY-SYNEPHRINE) 2. PCO (posterior capsular opacification), bilateral H26.493 fluorescein- benoxinate 0.3-0.4 % 1 Drop (FLURESS) proparacaine 0.5 % 1 Drop (ALCAINE) tropicamide 1 % 1 Drop (MYDRIACYL) PHENYLephrine 2.5 % 1 Drop (AK-DILATE, CHEY-SYNEPHRINE) 3. History of Descemet membrane endothelial keratoplasty (DMEK) Z94.7 fluorescein-benoxinate 0.3-0.4 % 1 Drop (FLURESS) proparacaine 0.5 % 1 Drop (ALCAINE) tropicamide 1 % 1 Drop (MYDRIACYL) PHENYLephrine 2.5 % 1 Drop (AK-DILATE, CHEY-SYNEPHRINE) 4. 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r 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(HCC) H35.3231 fluorescein-benoxinate 0.3-0.4 % 1 Drop (FLURESS) proparacaine 0.5 % 1 Drop (ALCAINE) tropicamide 1 % 1 Drop (MYDRIACYL) PHENYLephrine 2.5 % 1 Drop (AK-DILATE, CHEY-SYNEPHRINE) ABMD OU - s/p SK OD S/p DMEK OU - pred daily OU CNVM OD - metamorphopsia first noted Jan 2023 - likely d/t wet AMD - Follows with Dr Shields, recent Avastin OU Dry AMD OS - GA superior to fovea - continue AREDS2 BID PCO OD -Glares today, 2+ PCO -Consider YAG Capsulotomy offer option of yag capsulotomy OD patient declines today due to logistical issues but can call to schedule or have done at next annual follow-up if prefers continue follow-up with retina as per above next visit mrx iop dfe ou possible yag OD I have confirmed and edited as necessary [...] components. Nic Anderson MD [facility] NoteDate of Procedure 04/06/2024 [place] Protocol Safety Checklist Sign In: A moment [...] follow up management communicated. Specimen containers correctly labeled.[facility] NoteDate of Procedure 04/06/2024 [place] Protocol Safety Checklist Sign In: A moment [...] foreign bodies accounted for. Specimen containers correctly labeled.[facility] 04-06-2024 NoteDate of Procedure 04/06/2024. Pharmacy Scheduler Information Azul Shankar, COA . OCT Macula Interpretation Right Eye Abnormal foveal contour. Findings include Drusen, RPE Irregularity, Atrophy; Negative for Intraretinal fluid, Subretinal fluid. Left Eye Abnormal foveal contour. Findings include Drusen, RPE Irregularity, Atrophy; Negative for Intraretinal fluid, Subretinal fluid. Interval Change Right Eye Stable. Left Eye Stable.[id number] Instructions* Patient Instructions* Brando Shields MD - 04/06/2024 10:55 AM EST Post Injection Patient Information You had eye injection(s) today. These are your after injection instructions. Today: Preservative free artificial tears 1 drop every hour while awake as needed Tomorrow: Preservative free artificial tears 1 drop every 2 hours while awake as needed Care instructions after eye injections: Do not rub or touch your eye other than dabbing lightly with a tissue An [id number] pain reliever (i.e. 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 Anderson Age related macular degeneration - Smoking history: quit a long time ago; Family history: yes - Amsler grid and AREDS2 use reviewed. 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 - VA at start of therapy 20/40 - s/p Avastin, 11 weeks - OCT with resolved fluid / stable atrophy/RPE changes - VA stable Plan = - Avastin OD LEFT EYE - Neovascular - atrophy sup to fovea - VA start of tx 20/30 - s/p Avastin, 11 weeks - OCT with resolved trace sliver of subretinal fluid inf, not a definitive CNVM - VA stable Plan = - Avastin OS F/U - Extend 13 weeks dilate/OCT OU Posterior vitreous detachment, BOTH eyes - No peripheral pathology seen that requires treatment - Retinal detachment precautions reviewed with patient 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 Anderson Pseudophakia, both eyes PCO OD - Recommend YAG OD; Dr. Anderson - stable, observe Dry eye syndrome, both [...] all ofits relevant components. documented in this encounterT[facility]02-27-2025 NoteHNO ID: [id number] Author: BRANDO SHIELDS MD Service: ? Author Type: Physician Type: Progress Notes Filed: 04/06/2024 10:56 Note Text: Referred by Dr. Anderson Age related macular degeneration - Smoking history: quit a long time ago; Family history: yes - Amsler grid and AREDS2 use reviewed. 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 - VA at start of therapy 20/40 - s/p Avastin, 11 weeks - OCT with resolved fluid / stable atrophy/RPE changes - VA stable Plan = - Avastin OD LEFT EYE - Neovascular - atrophy sup to fovea - VA start of tx 20/30 - s/p Avastin, 11 weeks - OCT with resolved trace sliver of subretinal fluid inf, not a definitive CNVM - VA stable Plan = - Avastin OS F/U - Extend 13 weeks dilate/OCT OU Posterior vitreous detachment, BOTH eyes - No peripheral pathology seen that requires treatment - Retinal detachment precautions reviewed with patient 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 Anderson Pseudophakia, both eyes PCO OD - Recommend YAG OD; Dr. Anderson - stable, observe Dry eye syndrome, both [...] agree with all of its relevant components. [facility]02-10-2025 Telephone encounter Note* Telephone Encounter - Nathaly Munguia - 03/20/2024 11:26 AM EST Nic Anderson MD filed at 04/29/2023 11:31 AM Status: Signed Encounter Diagnosis ICD-10-CM 1. 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 Retinal edema H35.81 OCT MACULA CIRRUS OU (BOTH EYES) 4. 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 Nonexudative age-related macular degeneration, left [...] of its relevant components. Nic Anderson MD [facility] Work Phone: [phone]) 752-412602-10-2025 Miscellaneous Notes* Telephone Encounter - Nathaly Munguia - 03/20/2024 11:26 AM EST Nic Anderson MD filed at 04/29/2023 11:31 AM Status: Signed Encounter Diagnosis ICD-10-CM 1. 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 Retinal edema H35.81 OCT MACULA CIRRUS OU (BOTH EYES) 4. 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 Nonexudative age-related macular degeneration, left [...] components. Nic Anderson MD documented in this encounterT[facility]02-05-[facility]25 History of Present illness Narrative* Mounika Dick DO - 03/15/2024 1:00 PM EST [facility] KIEL Pham SUBJECTIVE: HPI: Fantasma Lewis is a 84 y.o. female who presents with chief complaint of No chief complaint on file. Pt presents for her 1 week follow up. Pt states that she is still having pain but notes most of this is in her hip. Pt notes no improvement at this time. 98 I have reviewed and reconciled the history and medication list with the patient today. Depression: Not at risk (03/15/2024) PHQ-2 PHQ-2 Score: 0 reports that she has never smoked. She has never used smokeless tobacco. She reports current alcohol use. She reports that she does not use drugs. OBJECTIVE: 11/02/2023 10:42 AM 01/12/2024 12:51 PM 01/26/2024 3:17 PM 01/28/2024 9:37 AM 03/08/2024 12:55 PM 03/15/2024 1:04 PM 03/15/2024 1:16 PM Vitals BMI 28.34 kg/m2 28.63 kg/m2 28.34 kg/m2 28.09 kg/m2 29.05 kg/m2 30.11 kg/m2 30.11 kg/m2 BSA (m2) 1.8 m2 1.81 m2 1.8 m2 1.79 m2 1.82 m2 1.85 m2 1.85 m2 Systolic 128 132 138 112 118 126 126 Diastolic 76 68 86 78 72 72 72 Heart Rate 85 88 97 102 71 90 90 SpO2 98 % 98 % 99 % 97 % 98 % 99 % 99 % Temp 98 F 98.6 F 96.7 F 99.4 F 96 F 98 F 98 F Height (in) 5' 3 5' 3 5' 3 5' 3 5' 3 Weight (lb) 160 161.6 160 158.6 164 170 170 Visit Report Report Report Report Report Report Report Report Report Report Physical Exam Constitutional: General: She is not in acute distress. Appearance: She is not ill-appearing or toxic-appearing. HENT: Head: Normocephalic. Eyes: Conjunctiva/sclera: Conjunctivae normal. Pulmonary: Effort: Pulmonary effort is normal. No respiratory distress. Breath sounds: No stridor. Abdominal: General: Abdomen is flat. Tenderness: There is no abdominal tenderness. Musculoskeletal: General: Tenderness (R arm just proximal to elbow, also over R GTB) present. No swelling or signs of injury. Normal range of motion. Cervical back: Normal range of motion. Skin: General: Skin is warm and dry. Neurological: General: No focal deficit present. Mental Status: She is alert. Mental status is at baseline. Psychiatric: Mood and Affect: Mood normal. Behavior: Behavior normal. Thought Content: Thought content normal. Judgment: Judgment normal. Recent Results (from the past 4 weeks) VITAMIN D 25 HYDROXY TOTAL Collection Time: 03/02/24 10:31 AM Result Value Ref Range Vitamin D, 25-Hydroxy, Total 47.1 31.0 - 80.0 ng/mL C-REACTIVE PROTEIN Collection Time: 03/02/24 10:31 AM Result Value Ref Range CRP 0.3 <0.9 mg/dL SED RATE WESTERGREN Collection Time: 03/02/24 10:31 AM Result Value Ref Range Erythro Sed Rate 13 0 - 20 mm/hr CBC Collection Time: 03/02/24 10:31 AM Result Value Ref Range WBC 8.78 3.70 - 11.00 k/uL RBC 4.29 3.90 - 5.20 m/uL Hemoglobin 13.5 11.5 - 15.5 g/dL Hematocrit 41.9 36.0 - 46.0 % MCV 97.7 80.0 - 100.0 fL MCH 31.5 26.0 - 34.0 pg MCHC 32.2 30.5 - 36.0 g/dL RDW-CV 13.1 11.5 - 15.0 % Platelet Count 349 150 - 400 k/uL MPV 9.7 9.0 - 12.7 fL Absolute nRBC <0.01 <0.01 k/uL COMPREHENSIVE METABOLIC PANEL Collection Time: 03/02/24 10:31 AM Result Value Ref Range Total Protein 6.5 6.3 - 8.0 g/dL Albumin 4.3 3.9 - 4.9 g/dL Calcium 10.3 (H) 8.5 - 10.2 mg/dL Total Bilirubin 0.3 0.2 - 1.3 mg/dL Alkaline Phosphatase 85 34 - 123 U/L AST 10 (L) 13 - 35 U/L ALT (SGPT) 5 (L) 7 - 38 U/L Glucose 94 74 - 99 mg/dL BUN 14 7 - 21 mg/dL Creatinine 0.85 0.58 - 0.96 mg/dL Sodium 140 136 - 144 mmol/L POTASSIUM, SERUM 4.0 3.7 - 5.1 mmol/L Chloride 98 98 - 107 mmol/L CO2 32 (H) 22 - 30 mmol/L Anion Gap 10 8 - 15 mmol/L Estimated Glomerular Filtration Rate 69 >=60 mL/min/1.73m [facility] CBC PNL BLD AUTO Collection Time: 03/02/24 10:31 AM Result Value Ref Range [facility]CF WBC # BLD AUTO 8.78 3.70 - 11.00 k/uL [facility]CF RBC # BLD AUTO 4.29 3.90 - 5.20 m/uL CCF HGB BLD-MCNC 13.5 11.5 - 15.5 g/dL [facility]CF HCT VFR BLD AUTO 41.9 36.0 - 46.0 % CCF MCV RBC AUTO 97.7 80.0 - 100.0 fL CCF MCH RBC QN AUTO 31.5 26.0 - 34.0 pg CCF MCHC RBC AUTO-MCNC 32.2 30.5 - 36.0 g/dL [facility]CF RDW RBC-RTO 13.1 11.5 - 15.0 % CCF PLATELET # BLD AUTO 349 150 - 400 k/uL CCF PMV BLD AUTO 9.7 9.0 - 12.7 fL CCF NRBC # BLD AUTO <0.01 <0.01 k/uL CCF URATE SERPL-MCNC Collection Time: 03/02/24 10:31 AM Result Value Ref Range CCF URATE SERPL-MCNC 3.7 2.5 - 6.6 mg/dL CCF COMP METAB 2000 PNL SERPL Collection Time: 03/02/24 10:31 AM Result Value Ref Range CCF PROT SERPL-MCNC 6.5 6.3 - 8.0 g/dL CCF ALBUMIN SERPL-MCNC 4.3 3.9 - 4.9 g/dL CCF CALCIUM SERPL-MCNC 10.3 (H) 8.5 - 10.2 mg/dL CCF BILIRUB SERPL-MCNC 0.3 0.2 - 1.3 mg/dL CCF ALP SERPL-CCNC 85 34 - 123 U/L CCF AST SERPL-CCNC 10 (L) 13 - 35 U/L CCF ALT SERPL-CCNC 5 (L) 7 - 38 U/L CCF GLUCOSE SERPL-MCNC 94 74 - 99 mg/dL CCF BUN SERPL-MCNC 14 7 - 21 mg/dL CCF CREAT SERPL-MCNC 0.85 0.58 - 0.96 mg/dL CCF SODIUM SERPL-SCNC 140 136 - 144 mmol/L CCF POTASSIUM SERPL-SCNC 4.0 3.7 - 5.1 mmol/L CCF CHLORIDE SERPL-SCNC 98 98 - 107 mmol/L CCF CO2 SERPL-SCNC 32 (H) 22 - 30 mmol/L CCF ANION GAP SERPL-SCNC 10 8 - 15 mmol/L CCF CREATININE + EGFR PNL SERPLBLD 69 >=60 mL/min/1.73m??? CCF ESR BLD QN WESTRGRN Collection Time: 03/02/24 10:31 AM Result Value Ref Range CCF ESR BLD QN WESTRGRN 13 0 - 20 mm/hr CCF 25(OH)D3 SERPL-MCNC Collection Time: 03/02/24 10:31 AM Result Value Ref Range CCF 25(OH)D3 SERPL-MCNC 47.1 31.0 - 80.0 ng/mL CCF CRP SERPL-MCNC Collection Time: 03/02/24 10:31 AM Result Value Ref Range CCF CRP SERPL-MCNC 0.3 <0.9 mg/dL ASSESSMENT AND PLAN: Assessment/Plan Diagnoses and all orders for this visit: Impingement of right shoulder Greater trochanteric bursitis of right hip - triamcinolone acetonide (Kenalog-40) injection 80 mg Greater trochanteric bursitis: Discussed failure of conservative therapy for condition. Offered joint injection to the patient andthey agreed to proceed. Discussed risks/benefits of the procedure including but not limited to infection, pain, bleeding. Landmarks were palpated and site of injection was marked. Skin was prepped with betadine and alcohol in the normal fashion. 2 cc kenalog and 2 cc lidocaine were injected. The patient tolerated the procedure well. ER/return precautions were discussed extensively and the patient voiced understanding.Left the office under their own power. Continue to monitor sxs of R shoulder which are mild at this point, consider PT vs injection in thefuture. 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, multiple sites Contusion, knee and lower leg, unspecified laterality, initial encounter Elevated C-reactive protein (CRP) Encounter for long-term (current) use of medications Estrogen receptor positive neoplasm Facet syndrome Family history of lupus erythematosus Fatigue Foot deformity, bilateral Fuchs' corneal dystrophy of left eye Gout Hammer toes, bilateral History of breast cancer History of kidney stones Inflammatory arthritis Long-term use of Plaquenil Lower leg edema Mild intermittent asthma without complication (CMS/HCC) Hip pain, bilateral Osteopenia of multiple sites Pain in toe of right foot PCO (posterior capsular opacification), bilateral Postlaminectomy syndrome, lumbar region Primary osteoarthritis of both knees Pseudogout involving multiple joints Pseudophakia Secondary osteoarthritis of multiple sites Status post bilateral knee replacements Vitamin D deficiency Overweight (BMI 25.0-29.9) SVT (supraventricular tachycardia) (CMS/HCC) Vertigo Past Medical History: Diagnosis Date Appendicitis Arthritis Asthma (CMS/HCC) Bronchitis Cataract Chicken pox Goiter (CMS/HCC) Gout History of back surgery History of breast biopsy left breast, benign History of colonoscopy 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 [facility] KIEL Pham SUBJECTIVE: HPI: Fantasma Lewis is a 84 y.o. female who presents with chief complaint of No chief complaint on file. Pt is here with complaints of right hip/back pain, also is through her right arm. This has been ongoing since January. She is unsure if she should go to her orthopedic doctor in [place] and figured she would start here. I have reviewed and reconciled the history and medication list with the patient today. Depression: Not at risk (03/15/2024) PHQ-2 PHQ-2 Score: 0 reports that she has never smoked. She has never used smokeless tobacco. She reports current alcohol use. She reports that she does not use drugs. OBJECTIVE: 11/02/2023 10:42 AM 01/12/2024 12:51 PM 01/26/2024 3:17 PM 01/28/2024 9:37 AM 03/08/2024 12:55 PM 03/15/2024 1:04 PM 03/15/2024 1:16 PM Vitals BMI 28.34 kg/m2 28.63 kg/m2 28.34 kg/m2 28.09 kg/m2 29.05 kg/m2 30.11 kg/m2 30.11 kg/m2 BSA (m2) 1.8 m2 1.81 m2 1.8 m2 1.79 m2 1.82 m2 1.85 m2 1.85 m2 Systolic 128 132 138 112 118 126 126 Diastolic 76 68 86 78 72 72 72 Heart Rate 85 88 97 102 71 90 90 SpO2 98 % 98 % 99 % 97 % 98 % 99 % 99 % Temp 98 F 98.6 F 96.7 F 99.4 F 96 F 98 F 98 F Height (in) 5' 3 5' 3 5' 3 5' 3 5' 3 Weight (lb) 160 161.6 160 158.6 164 170 170 Visit Report Report Report Report Report Report Report Report Report Report Physical Exam Constitutional: General: She is not in acute distress. Appearance: She is not ill-appearing or toxic-appearing. HENT: Head: Normocephalic. Eyes: Conjunctiva/sclera: Conjunctivae normal. Cardiovascular: Rate and Rhythm: Normal rate and regular rhythm. Heart sounds: No murmur heard. Pulmonary: Effort: Pulmonary effort is normal. No respiratory distress. Breath sounds: Normal breath sounds. No stridor. No wheezing. Abdominal: General: Abdomen is flat. There is no distension. Tenderness: There is no abdominal tenderness. Musculoskeletal: General: Tenderness (R arm just proximal to elbow, also over R GTB) present. No swelling, deformityor signs of injury. Normal range of motion. Cervical back: Normal range of motion. Skin: General: Skin is warm and dry. Neurological: General: No focal deficit present. Mental Status: She is alert and oriented to person, place, and time. Mental status is at baseline. Psychiatric: Mood and Affect: Mood normal. Behavior: Behavior normal. Thought Content: Thought content normal. Judgment: Judgment normal. Recent Results (from the past 4 weeks) VITAMIN D 25 HYDROXY TOTAL Collection Time: 03/02/24 10:31 AM Result Value Ref Range Vitamin D, 25-Hydroxy, Total 47.1 31.0 - 80.0 ng/mL C-REACTIVE PROTEIN Collection Time: 03/02/24 10:31 AM Result Value Ref Range CRP 0.3 <0.9 mg/dL SED RATE WESTERGREN Collection Time: 03/02/24 10:31 AM Result Value Ref Range Erythro Sed Rate 13 0 - 20 mm/hr CBC Collection Time: 03/02/24 10:31 AM Result Value Ref Range WBC 8.78 3.70 - 11.00 k/uL RBC 4.29 3.90 - 5.20 m/uL Hemoglobin 13.5 11.5 - 15.5 g/dL Hematocrit 41.9 36.0 - 46.0 % MCV 97.7 80.0 - 100.0 fL MCH 31.5 26.0 - 34.0 pg MCHC 32.2 30.5 - 36.0 g/dL RDW-CV 13.1 11.5 - 15.0 % Platelet Count 349 150 - 400 k/uL MPV 9.7 9.0 - 12.7 fL Absolute nRBC <0.01 <0.01 k/uL COMPREHENSIVE METABOLIC PANEL Collection Time: 03/02/24 10:31 AM Result Value Ref Range Total Protein 6.5 6.3 - 8.0 g/dL Albumin 4.3 3.9 - 4.9 g/dL Calcium 10.3 (H) 8.5 - 10.2 mg/dL Total Bilirubin 0.3 0.2 - 1.3 mg/dL Alkaline Phosphatase 85 34 - 123 U/L AST 10 (L) 13 - 35 U/L ALT (SGPT) 5 (L) 7 - 38 U/L Glucose 94 74 - 99 mg/dL BUN 14 7 - 21 mg/dL Creatinine 0.85 0.58 - 0.96 mg/dL Sodium 140 136 - 144 mmol/L POTASSIUM, SERUM 4.0 3.7 - 5.1 mmol/L Chloride 98 98 - 107 mmol/L CO2 32 (H) 22 - 30 mmol/L Anion Gap 10 8 - 15 mmol/L Estimated Glomerular Filtration Rate 69 >=60 mL/min/1.73m [facility] CBC PNL BLD AUTO Collection Time: 03/02/24 10:31 AM Result Value Ref Range [facility] WBC # BLD AUTO 8.78 3.70 - 11.00 k/uL [facility] RBC # BLD AUTO 4.29 3.90 - 5.20 m/uL [facility] HGB BLD-MCNC 13.5 11.5 - 15.5 g/dL [facility] HCT VFR BLD AUTO 41.9 36.0 - 46.0 % CCF MCV RBC AUTO 97.7 80.0 - 100.0 fL [facility]CF MCH RBC QN AUTO 31.5 26.0 - 34.0 pg CCF MCHC RBC AUTO-MCNC 32.2 30.5 - 36.0 g/dL [facility]CF RDW RBC-RTO 13.1 11.5 - 15.0 % [facility]CF PLATELET # BLD AUTO 349 150 - 400 k/uL CCF PMV BLD AUTO 9.7 9.0 - 12.7 fL CCF NRBC # BLD AUTO <0.01 <0.01 k/uL [facility] URATE SERPL-MCNC Collection Time: 03/02/24 10:31 AM Result Value Ref Range [facility]CF URATE SERPL-MCNC 3.7 2.5 - 6.6 mg/dL [facility] COMP METAB 2000 PNL SERPL Collection Time: 03/02/24 10:31 AM Result Value Ref Range [facility]CF PROT SERPL-MCNC 6.5 6.3 - 8.0 g/dL [facility] ALBUMIN SERPL-MCNC 4.3 3.9 - 4.9 g/dL [facility] CALCIUM SERPL-MCNC 10.3 (H) 8.5 - 10.2 mg/dL [facility] BILIRUB SERPL-MCNC 0.3 0.2 - 1.3 mg/dL [facility] ALP SERPL-CCNC 85 34 - 123 U/L C[facility] AST SERPL-CCNC 10 (L) 13 - 35 U/L CCF ALT SERPL-CCNC 5 (L) 7 - 38 U/L [facility] GLUCOSE SERPL-MCNC 94 74 - 99 mg/dL [facility] BUN SERPL-MCNC 14 7 - 21 mg/dL [facility] CREAT SERPL-MCNC 0.85 0.58 - 0.96 mg/dL [facility] SODIUM SERPL-SCNC 140 136 - 144 mmol/L [facility]CF POTASSIUM SERPL-SCNC 4.0 3.7 - 5.1 mmol/L CCF CHLORIDE SERPL-SCNC 98 98 - 107 mmol/L CCF CO2 SERPL-SCNC 32 (H) 22 - 30 mmol/L CCF ANION GAP SERPL-SCNC 10 8 - 15 mmol/L [facility] CREATININE + EGFR PNL SERPLBLD 69 >=60 mL/min/1.73m??? [facility] ESR BLD QN WESTRGRN Collection Time: 03/02/24 10:31 AM Result Value Ref Range CCF ESR BLD QN WESTRGRN 13 0 - 20 mm/hr CCF 25(OH)D3 SERPL-MCNC Collection Time: 03/02/24 10:31 AM Result Value Ref Range [facility]CF 25(OH)D3 SERPL-MCNC 47.1 31.0 - 80.0 ng/mL C[facility] CRP SERPL-MCNC Collection Time: 03/02/24 10:31 AM Result Value Ref Range [facility]CF CRP SERPL-MCNC 0.3 <0.9 mg/dL ASSESSMENT AND PLAN: Assessment/Plan Diagnoses and all orders for this visit: Impingement of right shoulder - XR shoulder 2+ views right; Future Right hip pain - XR hip right 2 or 3 views; Future Greater trochanteric bursitis of right hip Pt elects to continue to monitor pain in arm/shoulder R GTB injection: Discussed failure of conservative therapy for condition. Offered joint injection to the patient andthey agreed to proceed. Discussed risks/benefits of the procedure including but not limited to infection, pain, bleeding. Landmarks were palpated and site of injection was marked. Skin was prepped with betadine and alcohol in the normal fashion. 2 cc kenalog and 2 cc lidocaine were injected. The patient tolerated the procedure well. ER/return precautions were discussed extensively and the patient voiced understanding.Left the office under their own power. Mounika Dick DO Patient Active Problem List Diagnosis Asthma (CMS/HCC) Calculus of tonsil Change in bowel habits Chronic GERD Chronic sinusitis Frontal sinusitis Diverticula of colon Ductal carcinoma in situ (DCIS) of right breast Dysgeusia Hyperlipidemia ([facility]/HCC) Hypertension ([facility]/HCC) Hypothyroidism ([facility]/HCC) Irritable bowel syndrome with diarrhea Kidney stone on right side Lumbago Lymphedema of breast Osteoarthritis of knee Postmenopausal atrophic vaginitis Rectocele Uterine prolapse 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 Bursitis of hip, right Carcinoma in situ of breast 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, multiple sites Contusion, knee and lower leg, unspecified laterality, initial encounter Elevated C-reactive protein (CRP) Encounter for long-term (current) use of medications Estrogen receptor positive neoplasm Facet syndrome Family history of lupus erythematosus Fatigue Foot deformity, bilateral Fuchs' corneal dystrophy of left eye Gout Hammer toes, bilateral History of breast cancer History of kidney stones Inflammatory arthritis Long-term use of Plaquenil Lower leg edema Mild intermittent asthma without complication ([facility]) Hip pain, bilateral Osteopenia of multiple sites Pain in toe of right foot PCO (posterior capsular opacification), bilateral Postlaminectomy syndrome, lumbar region Primary osteoarthritis of both knees Pseudogout involving multiple joints Pseudophakia Secondary osteoarthritis of multiple sites Status post bilateral knee replacements Vitamin D deficiency Overweight (BMI 25.0-29.9) SVT (supraventricular tachycardia) ([facility]) Vertigo Past Medical History: Diagnosis Date Appendicitis Arthritis Asthma ([facility]) Bronchitis Cataract Chicken pox Goiter ([facility]) Gout History of back surgery History of breast biopsy left breast, benign History of colonoscopy 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 Patient's request for medication is as follows: Requested Prescriptions Pending Prescriptions Disp Refills meloxicam (MOBIC) 15 mg tablet 90 tablet 3 Sig: TAKE 1 TABLET BY MOUTH DAILY WITH FOOD FOR PAIN DULoxetine (CYMBALTA) 60 mg capsule 90 capsule 3 Sig: Take 1 capsule by mouth every afternoon. Prescription(s) as above. Please process accordingly. Chalo Menjivar MD [facility]01-28-2025 Miscellaneous Notes* Telephone Encounter - Chalo Menjivar MD - 03/07/2024 5:48 PM EST Notify patient medication sent as requested Thank you. Patient's request for medication is as follows: Requested Prescriptions Pending Prescriptions Disp Refills meloxicam (MOBIC) 15 mg tablet 90 tablet 3 Sig: TAKE 1 TABLET BY MOUTH DAILY WITH FOOD FOR PAIN DULoxetine (CYMBALTA) 60 mg capsule 90 capsule 3 Sig: Take 1 capsule by mouth every afternoon. Prescription(s) as above. Please process accordingly. Chalo Menjivar MD * Telephone Encounter - Felicia Perry LPN - 03/06/2024 11:46 AM EST Images from the original note were not included. Most recent Rheumatology visit: 11/29/2023 (with Chalo Menjivar) Last Bone Density on file: None on file Rheumatology Care Team: None on file Recent Office Visits - This Specialty 11/29/2023 Pseudogout involving multiple joints Rheumatology Chalo Menjivar MD 03/05/2023 Postmenopausal osteoporosis of multiple sites Rheumatology Chalo Menjivar MD 08/03/2022 Pseudogout involving multiple joints Rheumatology Chalo Menjivar MD Upcoming Rheumatology Appointments - Next 365 Days Visit Type Date Time Department SAHARA INJECT PROLIA 03/06/2024 11:30 AM [facility] N[facility]INI SAHARA EST [facility] 10/23/2024 12:20 PM [facility] N[facility]INI CBC: Latest Ref Rng & Units 03/05/2023 03/02/2024 CBC WBC 3.70 - 11.00 k/uL 8.47 8.78 Hemoglobin 11.5 - 15.5 g/dL 13.5 13.5 Hematocrit 36.0 - 46.0 % 43.9 41.9 Platelet Count 150 - 400 k/uL 362 349 Vitamin D: Latest Ref Rng & Units 07/13/2023 03/02/2024 Vitamin D Vitamin D 25 Hydroxy 31.0 - 80.0 ng/mL 46.2 47.1 LFT: Latest Ref Rng & Units 03/05/2023 03/02/2024 CMP Sodium 136 - 144 mmol/L 142 140 Potassium 3.7 - 5.1 mmol/L 4.3 4.0 Chloride 98 - 107 mmol/L 103 98 CO2 22 - 30 mmol/L 27 32 Glucose 74 - 99 mg/dL 137 94 BUN 7 - 21 mg/dL 20 14 Creatinine 0.58 - 0.96 mg/dL 0.74 0.85 Calcium 8.5 - 10.2 mg/dL 9.9 10.3 AST 13 - 35 U/L 17 10 ALT 7 - 38 U/L 8 5 Alkaline Phosphatase 34 - 123 U/L 74 85 Hepatic Function: Creatinine: Latest Ref Rng & Units 03/05/2023 03/02/2024 Creatinine Creatinine 0.58 - 0.96 mg/dL 0.74 0.85 ESR/CRP: Latest Ref Rng & Units 03/05/2023 03/02/2024 ESR, WSR WSR 0 - 20 mm/hr 5 13 Latest Ref Rng & Units 03/05/2023 03/02/2024 CRP CRP <0.9 mg/dL 0.4 0.3 Uric Acid: Latest Ref Rng & Units 08/03/2022 03/02/2024 Uric Acid Uric Acid 2.5 - 6.6 mg/dL 3.1 3.7 Open Standing (Multiple Instance) Lab Orders None Open Future (Single Instance) Lab Orders Expected Expires Ordered CALCIUM, TOTAL [SQCA] 08/08/24 03/05/25 03/05/24 Auth. provider: Chalo Menjivar MD Assoc. diagnoses: Hypocalcemia VITAMIN D 25 HYDROXY [SQVITD] 08/08/24 03/05/25 03/05/24 Auth. provider: Chalo Menjivar MD Assoc. diagnoses: Vitamin D deficiency documented in this encounterT[facility] Telephone encounter Note * Telephone Encounter - Felicia Perry LPN - 03/06/2024 11:46 AM EST Images from the original note were not included. Most recent Rheumatology visit: 11/29/2023 (with Chalo Menjivar) Last Bone Density on file: None on file Rheumatology Care Team: None on file Recent Office Visits - This Specialty 11/29/2023 Pseudogout involving multiple joints Rheumatology Chalo Menjivar MD 03/05/2023 Postmenopausal osteoporosis of multiple sites Rheumatology Chalo Menjivar MD 08/03/2022 Pseudogout involving multiple joints Rheumatology Chalo Menjivar MD Upcoming Rheumatology Appointments - Next 365 Days Visit Type Date Time Department SAHARA INJECT PROLIA 03/06/2024 11:30 AM [facility] N[facility]INI SAHARA EST [facility] 10/23/2024 12:20 PM [facility] CBC: Latest Ref Rng & Units 03/05/2023 03/02/2024 CBC WBC 3.70 - 11.00 k/uL 8.47 8.78 Hemoglobin 11.5 - 15.5 g/dL 13.5 13.5 Hematocrit 36.0 - 46.0 % 43.9 41.9 Platelet Count 150 - 400 k/uL 362 349 Vitamin D: Latest Ref Rng & Units 07/13/2023 03/02/2024 Vitamin D Vitamin D 25 Hydroxy 31.0 - 80.0 ng/mL 46.2 47.1 LFT: Latest Ref Rng & Units 03/05/2023 03/02/2024 CMP Sodium 136 - 144 mmol/L 142 140 Potassium 3.7 - 5.1 mmol/L 4.3 4.0 Chloride 98 - 107 mmol/L 103 98 CO2 22 - 30 mmol/L 27 32 Glucose 74 - 99 mg/dL 137 94 BUN 7 - 21 mg/dL 20 14 Creatinine 0.58 - 0.96 mg/dL 0.74 0.85 Calcium 8.5 - 10.2 mg/dL 9.9 10.3 AST 13 - 35 U/L 17 10 ALT 7 - 38 U/L 8 5 Alkaline Phosphatase 34 - 123 U/L 74 85 Hepatic Function: Creatinine: Latest Ref Rng & Units 03/05/2023 03/02/2024 Creatinine Creatinine 0.58 - 0.96 mg/dL 0.74 0.85 ESR/CRP: Latest Ref Rng & Units 03/05/2023 03/02/2024 ESR, WSR WSR 0 - 20 mm/hr 5 13 Latest Ref Rng & Units 03/05/2023 03/02/2024 CRP CRP <0.9 mg/dL 0.4 0.3 Uric Acid: Latest Ref Rng & Units 08/03/2022 03/02/2024 Uric Acid Uric Acid 2.5 - 6.6 mg/dL 3.1 3.7 Open Standing (Multiple Instance) Lab Orders None Open Future (Single Instance) Lab Orders Expected Expires Ordered CALCIUM, TOTAL [SQCA] 08/08/24 03/05/25 03/05/24 Auth. provider: Chalo Menjivar MD Assoc. diagnoses: Hypocalcemia VITAMIN D 25 HYDROXY [SQVITD] 08/08/24 03/05/25 03/05/24 Auth. provider: Chalo Menjivar MD Assoc. diagnoses: Vitamin D deficiency [facility]01-27-2025 Telephone encounter Note* Telephone Encounter - Carly Butts MA - 03/06/2024 7:53 AM EST Pt was notified via . [facility]01-27-2025 Miscellaneous Notes* Telephone Encounter - Carly Nichole MA - 03/06/2024 7:53 AM EST Pt was notified via . * Telephone Encounter - Chalo Menjivar MD - 03/05/2024 2:18 PM EST Please Call patient if MyChart note not read to review results/released to My Chart if tests completed at [facility]: normal labs and no inflammation. Continue same vitamin D intake with food. Recheck nonfasting labs in 6months with prolia visit.The orders have been placed. Happy to further review and discuss at follow up visit. Thank you. 03/02/24 borderline calcium 10.3;normal rest of cmp, cbc, esr 13, crp 0.3, vitamin D 47.1, uric acid3.7; documented in this encounterT[facility]01-[facility]25 Telephone encounter Note * Telephone Encounter - Chalo Menjivar MD - 03/05/2024 2:18 PM EST Please Call patient if MyChart note not read to review results/released to My Chart if tests completed at [facility]: normal labs and no inflammation. Continue same vitamin D intake with food. Recheck nonfasting labs in 6months with prolia visit.The orders have been placed. Happy to further review and discuss at follow up visit. Thank you. 03/02/24 borderline calcium 10.3;normal rest of cmp, cbc, esr 13, crp 0.3, vitamin D 47.1, uric acid3.7; [facility]12-20-2024 History of Present illness Narrative* Mounika Chan Mayelin, DO - 01/28/2024 9:40 AM EST Images from the original note were not included. [place], [place] SUBJECTIVE: HPI: Fantasma Lewis is a 83 y.o. female who presents with chief complaint of No chief complaint on file. Patient presents with right arm pain, under right rib cage. This has been going on for over a week.She currently is being treated for a UTI. She also has left shoulder pain that has been going on for awhile, that pain comes and goes. I have reviewed and reconciled the history and medication list with the patient today. Depression: Not at risk (01/28/2024) PHQ-2 PHQ-2 Score: 0 reports that she has never smoked. She has never used smokeless tobacco. She reports current alcohol use. She reports that she does not use drugs. OBJECTIVE: 09/29/2023 10:43 AM 10/18/2023 10:53 AM 10/27/2023 4:00 PM 11/02/2023 10:42 AM 01/12/2024 12:51 PM 01/26/2024 3:17 PM 01/28/2024 9:37 AM Vitals BMI 29.05 kg/m2 28.34 kg/m2 27.81 kg/m2 28.34 kg/m2 28.63 kg/m2 28.34 kg/m2 28.09 kg/m2 BSA (m2) 1.82 m2 1.8 m2 1.78 m2 1.8 m2 1.81 m2 1.8 m2 1.79 m2 Systolic 138 132 138 128 132 138 112 Diastolic 72 78 76 76 68 86 78 Heart Rate 76 100 102 85 88 97 102 SpO2 95 % 98 % 98 % 98 % 98 % 99 % 97 % Temp 97.2 F 97.8 F 95.9 F 98 F 98.6 F 96.7 F 99.4 F Resp 18 Height (in) 5' 3 5' 3 5' 3 Weight (lb) 164 160 157 160 161.6 160 158.6 Visit Report Report Report Report Report Report Report Report Report Physical Exam Constitutional: General: She is not in acute distress. Appearance: She is not ill-appearing or toxic-appearing. HENT: Head: Normocephalic. Eyes: Conjunctiva/sclera: Conjunctivae normal. Pulmonary: Effort: Pulmonary effort is normal. No respiratory distress. Breath sounds: No stridor. Abdominal: General: Abdomen is flat. Tenderness: There is no abdominal tenderness. Musculoskeletal: General: Tenderness (R arm just proximal to elbow, also over R GTB) present. No swelling or signs of injury. Normal range of motion. Cervical back: Normal range of motion. Skin: General: Skin is warm and dry. Neurological: General: No focal deficit present. Mental Status: She is alert. Mental status is at baseline. Psychiatric: Mood and Affect: Mood normal. Behavior: Behavior normal. Thought Content: Thought content normal. Judgment: Judgment normal. Recent Results (from the past 4 weeks) STATUS COVID-19/FLU Collection Time: 01/12/24 1:08 PM Result Value Ref Range FLU A Negative FLU B Negative SARS COV 2 RNA Negative URINALYSIS ANALYZER TEST Collection Time: 01/26/24 3:27 PM Result Value Ref Range LEUKOCYTES 3+ Negative NITRITES Neg Negative UROBILINOGEN 0.2 0.2 - 1.0 PROTEIN Neg Negative PH 6.0 5.0 - 6.0 BLOOD Neg Negative SPECIFIC GRAVITY 1.005 1.001 - 1.035 KETONES Neg Negative BILIRUBIN Neg Negative GLUCOSE Neg Negative URINARY TRACT INFECTION (HTRX) Collection Time: 01/26/24 4:34 PM Result Value Ref Range ACINETOBACTER BAUMANII 0.000 19.961 - 24.689 ppm ACINETOBACTER BAUMANII Not Detected 19.961 - 24.689 ppm CITROBACTER FREUNDII 0.000 23.000 - 31.881 ppm CITROBACTER FREUNDII Not Detected 23.000 - 31.881 ppm ENTEROBACTER AEROGENES, CLOACAE 0.000 23.000 - 31.535 ppm ENTEROBACTER AEROGENES, CLOACAE Not Detected 23.000 - 31.535 ppm ENTEROCOCCUS FAECALIS, FAECIUM 0.000 26.000 - 31.575 ppm ENTEROCOCCUS FAECALIS, FAECIUM Not Detected 26.000 - 31.575 ppm ESCHERICHIA COLI 0.000 23.000 - 28.500 ppm ESCHERICHIA COLI Not Detected 23.000 - 28.500 ppm KLEBSIELLA PNEUMONIAE, OXYTOCA 0.000 23.000 - 30.500 ppm KLEBSIELLA PNEUMONIAE, OXYTOCA Not Detected 23.000 - 30.500 ppm MORGANELLA MORGANII 0.000 19.961 - 24.689 ppm MORGANELLA MORGANII Not Detected 19.961 - 24.689 ppm PROTEUS MIRABILIS, VULGARIS 0.000 23.000 - 28.500 ppm PROTEUS MIRABILIS, VULGARIS Not Detected 23.000 - 28.500 ppm PSEUDOMONAS AERUGINOSA 0.000 23.000 - 28.500 ppm PSEUDOMONAS AERUGINOSA Not Detected 23.000 - 28.500 ppm STAPHYLOCOCCUS AUREUS 0.000 26.000 - 30.902 ppm STAPHYLOCOCCUS AUREUS Not Detected 26.000 - 30.902 ppm STREPTOCOCCUS AGALACTIAE (GROUP B STREP) 0.000 26.000 - 32.222 ppm STREPTOCOCCUS AGALACTIAE (GROUP B STREP) Not Detected 26.000 - 32.222 ppm NATHALIE ALBICANS, PARAPSILOSIS, TROPICALIS 0.000 19.961 - 30.770 ppm NATHALIE ALBICANS, PARAPSILOSIS, TROPICALIS Not Detected 19.961 - 30.770 ppm NATHALIE GLABRATA 0.000 23.000 - 32.138 ppm NATHALIE GLABRATA Not Detected 23.000 - 32.138 ppm NATHALIE KRUSEI 0.000 23.000 - 32.271 ppm NATHALIE KRUSEI Not Detected 23.000 - 32.271 ppm SERRATIA MARCESCENS 0.000 23.000 - 31.204 ppm SERRATIA MARCESCENS Not Detected 23.000 - 31.204 ppm STREPTOCOCCUS PYOGENES (GROUP A STREP) 0.000 19.961 - 24.689 ppm STREPTOCOCCUS PYOGENES (GROUP A STREP) Not Detected 19.961 - 24.689 ppm STAPHYLOCOCCUS EPIDERMIDIS, HAEMOLYTICUS, LUGDUNENSIS, SAPROPHYTICUS (URINA 0.000 19.961 - 24.689 ppm STAPHYLOCOCCUS EPIDERMIDIS, HAEMOLYTICUS, LUGDUNENSIS, SAPROPHYTICUS (URINA Not Detected 19.961 - 24.689 ppm STAPHYLOCOCCUS EPIDERMIDIS, HAEMOLYTICUS, LUGDUNENSIS, SAPROPHYTICUS (URINA 0.000 19.961 - 24.689 ppm STAPHYLOCOCCUS EPIDERMIDIS, HAEMOLYTICUS, LUGDUNENSIS, SAPROPHYTICUS (URINA Not Detected 19.961 - 24.689 ppm ASSESSMENT AND PLAN: Assessment/Plan Diagnoses and all orders for this visit: Greater trochanteric bursitis of right hip - methylPREDNISolone (Medrol Dospak) 4 MG tablets; Follow schedule on package instructions Pain of right upper extremity - methylPREDNISolone (Medrol Dospak) 4 MG tablets; Follow schedule on package instructions Picked up a small child and strained ribs/R arm, prev GTB noted Treat with systemic/po steroid and reassess prn 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, multiple sites Contusion, knee and lower leg, unspecified laterality, initial encounter Elevated C-reactive protein (CRP) Encounter for long-term (current) use of medications Estrogen receptor positive neoplasm Facet syndrome Family history of lupus erythematosus Fatigue Foot deformity, bilateral Fuchs' corneal dystrophy of left eye Gout Hammer toes, bilateral History of breast cancer History of kidney stones Inflammatory arthritis Long-term use of Plaquenil Lower leg edema Mild intermittent asthma without complication (CMS/HCC) Hip pain, bilateral Osteopenia of multiple sites Pain in toe of right foot PCO (posterior capsular opacification), bilateral Postlaminectomy syndrome, lumbar region Primary osteoarthritis of both knees Pseudogout involving multiple joints Pseudophakia Secondary osteoarthritis of multiple sites Status post bilateral knee replacements Vitamin D deficiency Overweight (BMI 25.0-29.9) SVT (supraventricular tachycardia) (CMS/HCC) Vertigo Past Medical History: Diagnosis Date Appendicitis Arthritis Asthma (CMS/HCC) Bronchitis Cataract Chicken pox Goiter (CMS/HCC) Gout History of back surgery History of breast biopsy left breast, benign History of colonoscopy 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 [address] , [address] [facility], [address] P: [phone] F: [phone] HPI Historian of HPI: patient Fantasma Lewis is a 83 y.o. female who presents today to the Urgent Care with the following complaints and denials which have been present for 4 day(s) C/O Denies Symptom Comments [x] [] Dysuria [] [x] hematuria [x] [] Urinary frequency [] [x] Urinary incontinence [x] [] Urinary urgency [] [x] Genital itching [] [x] Genital discharge [] [x] Back pain [] [x] Abd pain Additional Comments: pt has not taken any OTC medications Pt took 2 ovr the counter UA tests and they where both positive IH Testing: An In-House UA has been obtained ROS A complete system ROS was performed and negative aside from the pertinent positives noted in the HPI and PE. PHYSICAL EXAM Physical Exam Constitutional: General: She is awake. Appearance: Normal appearance. She is well-developed. She is not ill-appearing or toxic-appearing. HENT: Head: Normocephalic and atraumatic. Eyes: General: Lids are normal. No scleral icterus. Conjunctiva/sclera: Conjunctivae normal. Cardiovascular: Rate and Rhythm: Normal rate and regular rhythm. Heart sounds: S1 normal and S2 normal. Pulmonary: Effort: Pulmonary effort is normal. Breath sounds: Normal breath sounds. No stridor. Abdominal: General: Abdomen is flat. Bowel sounds are normal. There is no distension. Palpations: Abdomen is soft. There is no hepatomegaly, splenomegaly or mass. Tenderness: There is abdominal tenderness in the suprapubic area. There is no right CVA tenderness,left CVA tenderness, guarding or rebound. Skin: General: Skin is warm and dry. Neurological: Mental Status: She is alert and oriented to person, place, and time. TREATMENT PLAN 1. Acute cystitis without hematuria (Primary) Discussed diagnosis and treatment. Will treat with antibiotics empirically based on UA and symptoms. Common side effects reviewed, advised yogurt once daily with antibiotic. Will send for urine culture. Discussed adequate hydration. Reviewed s/sx of pyelonephritis. Patient educated if symptoms worsen, change, or do not improve to return for re-evaluation. Patient educated to follow-up with PCP/urology, she follows with Dr. Loza. All questions/concerns addressed. Patient voiced understanding andagreement with the plan. reviewed most recent renal function. - nitrofurantoin, macrocrystal-monohydrate, (Macrobid) 100 MG capsule; Take 1 capsule (100 mg) by mouth every 12 (twelve) hours for 7 days Dispense: 14 capsule; Refill: 0 2. Dysuria UA with leuks, reviewed with pt. - URINALYSIS ANALYZER TEST - URINARY TRACT INFECTION (HTRX) documented in this encounterLiberty [id number] Instructions* Patient Instructions* Brando Shields MD - 01/20/2024 10:38 AM EST Post Injection Patient Information You had eye injection(s) today. These are your after injection instructions. Today: Preservative free artificial tears 1 drop every hour while awake as needed Tomorrow: Preservative free artificial tears 1 drop every 2 hours while awake as needed Care instructions after eye injections: Do not rub or touch your eye other than dabbing lightly with a tissue An [id number] pain reliever (i.e. Tylenol) can be used [...] If it is after hours please call [phone] which will give instructions on how to reach the eye doctor electronic warfare linguist documented in this [facility]12-[facility] NoteDate of Procedure 01/20/2024 [place] Protocol Safety Checklist Sign In: A moment to CARE completed, Special equipment verified, Appropriate PPE verified, Patient name, date of , allergies and intended procedure verified. Provider Confirms: Intended patient and procedure match the source document, Consent documented and matches the intended procedure, Correct side/site marked visible. Relevant labs, photos, and/or imaging studies have been reviewed. Medications required for procedure verified. Fire risk assessed and interventions discussed. No implants. Anesthesia 2-4 drops Tetracaine 0.5%, 0.5 mL subconjunctival injection of 2% Lidocaine. Prep 5% Betadine. Injection Administration Medication: 1.25 mg bevacizumab (Jase's) 2.75 mg/0.11 mL Route: INTRAVITREAL, Site: Left Balance Wasted Residual medication less than 1 unit was discarded. Anterior Chamber Paracentesis No. Post Injection Evaluation Patient has at least hand motion vision. Post Procedure Medications 5% Betadine. Home Going Prescription None. Sign Out Sign out discussion completed, All instruments, equipment, and/or possible retained foreign bodies accounted for, Post-procedure follow up management communicated. No specimens.[facility] NoteDate of Procedure 01/20/2024 [place] Protocol Safety Checklist Sign In: A moment to CARE completed, Special equipment verified, Appropriate PPE verified, Patient name, date of , allergies and intended procedure verified. Provider Confirms: Intended patient and procedure match the source document, Consent documented and matches the intended procedure, Correct side/site marked visible. Relevant labs, photos, and/or imaging studies have been reviewed. Medications required for procedure verified. Fire risk assessed and interventions discussed. Correct implant confirmed and expiration reviewed. Anesthesia 2-4 drops Tetracaine 0.5%, 0.5 mL subconjunctival injection of 2% Lidocaine. Prep 5% Betadine. Injection Administration Medication: 1.25 mg bevacizumab (Jase's) 2.75 mg/0.11 mL Route: INTRAVITREAL, Site: Right Balance Wasted Residual medication less than 1 unit was discarded. Anterior Chamber Paracentesis No. Post Injection Evaluation Patient has at least hand motion vision. Post Procedure Medications 5% Betadine. Home Going Prescription Prescription given to patient - see chart for medication list, Patient has drops at home. Sign Out Sign out discussion completed, All instruments, equipment, and/or possible retained foreign bodies accounted for, Post-procedure follow up management communicated. Specimen containers correctly labeled.[facility] NoteDate of Procedure 01/20/2024. Pharmacy Scheduler Information Air Traffic Control Manager: Dena. Interpretation Right Eye Abnormal foveal contour. Findings include Drusen, RPE Irregularity, Atrophy; Negative for Intraretinal fluid, Subretinal fluid. Left Eye Abnormal foveal contour. Findings include Drusen, RPE Irregularity, Atrophy; Negative for Intraretinal fluid, Subretinal fluid. Interval Change Right Eye Stable. Left Eye Stable.[id number] History of Present illness Narrative* Brando Shields MD - 01/20/2024 9:30 AM EST Referred by Dr. Anderson Age related macular degeneration - Smoking history: quit a long time ago; Family history: yes - Amsler grid and AREDS2 use reviewed. 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 - VA at start of therapy 20/40 - s/p Avastin, 10 weeks - OCT with resolved fluid - VA stable Plan = - Avastin OD LEFT EYE - Neovascular - atrophy sup to fovea - VA start of tx 20/30 - s/p Avastin, 10 weeks - OCT with resolved trace sliver of subretinal fluid inf, not a definitive Choroidal neovascular membrane - VA better Plan = - Avastin OS F/U - Extend 11 weeks DTI OU Posterior vitreous detachment, BOTH eyes - No peripheral pathology seen that requires treatment - Retinal detachment precautions reviewed with patient 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 Anderson Pseudophakia, both eyes PCO OD - Recommend yAG OD; Dr. Anderson - stable, observe Dry eye syndrome, both [...] all ofits relevant components. [facility] NoteHNO ID: [id number] Author: BRANDO SHIELDS MD Service: ? Author Type: Physician Type: Progress Notes Filed: 01/20/2024 10:39 Note Text: Referred by Dr. Anderson Age related macular degeneration - Smoking history: quit a long time ago; Family history: yes - Amsler grid and AREDS2 use reviewed. 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 - VA at start of therapy 20/40 - s/p Avastin, 10 weeks - OCT with resolved fluid - VA stable Plan = - Avastin OD LEFT EYE - Neovascular - atrophy sup to fovea - VA start of tx 20/30 - s/p Avastin, 10 weeks - OCT with resolved trace sliver of subretinal fluid inf, not a definitive Choroidal neovascular membrane - VA better Plan = - Avastin OS F/U - Extend 11 weeks DTI OU Posterior vitreous detachment, BOTH eyes - No peripheral pathology seen that requires treatment - Retinal detachment precautions reviewed with patient 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 Anderson Pseudophakia, both eyes PCO OD - Recommend yAG OD; Dr. Anderson - stable, observe Dry eye syndrome, both [...] agree with all of its relevant components. [facility]12-04-2024 History of Present illness Narrative* Jah Sutherland NP - 01/12/2024 12:50 PM EST Images from the original note were not included. [address] , [address] [facility], [address] P: [phone] F: [phone] HPI Historian of HPI: patient Fantasma Lewis is a 83 y.o. female who presents today to the Urgent Care with the following complaints and denials which have been present for 5 day(s). C/O Denies Symptom Comments [x] [] Runny Nose [] [x] Difficulty Swallowing [x] [] Sore Throat Initially [x] [] Cough Productive yellow [x] [] Ear Pain Right [x] [] Fever 100 [x] [] Chills [x] [] Nasal Congestion [x] [] Myalgia [x] [] Sinus Pain Frontal [x] [] Sinus Pressure Frontal Additional Comments: pt has taken mucienx, tylenol OTC medication without relief ROS A complete system ROS was performed and negative aside from the pertinent positives noted in the HPI and PE. IH Testing: The following tests were performed Rapid Flu Test Rapid COVID Test SEE TEST(S) ORDERS FOR RESULTS Visit Vitals BP 132/68 (BP Location: Left arm, Patient Position: Sitting) Pulse 88 Temp 98.6 F (Temporal) Wt 161 lb 9.6 oz SpO2 98% BMI 28.63 kg/m Smoking Status Never BSA 1.8 m PHYSICAL EXAM Physical Exam Vitals reviewed. Constitutional: General: She is not in acute distress. Appearance: Normal appearance. HENT: Head: Normocephalic and atraumatic. Right Ear: Tympanic membrane, ear canal and external ear normal. Decreased hearing noted. Left Ear: Tympanic membrane, ear canal and external ear normal. Decreased hearing noted. Ears: Comments: Does not have hearing aides in Nose: Nasal tenderness and congestion present. Right Turbinates: Enlarged and swollen. Left Turbinates: Enlarged and swollen. Right Sinus: Frontal sinus tenderness present. Left Sinus: Frontal sinus tenderness present. Mouth/Throat: Mouth: Mucous membranes are moist. Pharynx: Oropharynx is clear. Uvula midline. Posterior oropharyngeal erythema and postnasal drip present. Tonsils: No tonsillar exudate or tonsillar abscesses. Eyes: Extraocular Movements: Extraocular movements intact. Conjunctiva/sclera: Conjunctivae normal. Pupils: Pupils are equal, round, and reactive to light. Cardiovascular: Rate and Rhythm: Normal rate and regular rhythm. Pulses: Normal pulses. Heart sounds: Normal heart sounds. Pulmonary: Effort: Pulmonary effort is normal. No respiratory distress. Breath sounds: No wheezing, rhonchi or rales. Musculoskeletal: General: Normal range of motion. Cervical back: Normal range of motion and neck supple. Skin: General: Skin is warm and dry. Findings: No rash. Neurological: General: No focal deficit present. Mental Status: She is alert and oriented to person, place, and time. Psychiatric: Mood and Affect: Mood normal. TREATMENT PLAN 1. Acute cough Presents today with symptoms present x 5 days. COVID 19 and Influenza A/B testing is negative in urgent care today. New medication as directed. Acetaminophen or Ibuprofen for reduction of fever and pain. Increase fluids. Good handwashing. Discussed warning signs of worsening infection and when to re port to ER. New toothbrush in 24 hours. Call office if symptoms have not started to improve within the next 72 hours. Patient verbalized understanding of instructions. - STATUS COVID-19/FLU - azithromycin (Zithromax) 250 MG tablet; Take 1 tablet (250 mg) by mouth Daily Take 2 tabs on day 1 and 1 tab on days 2-5 then stop Dispense: 6 tablet; Refill: 0 - fluticasone (Flonase) 50 MCG/ACT nasal spray; Administer 1 spray into each nostril in the morningand 1 spray before bedtime. Shake gently. Before first use, prime pump. After use, clean tip and replace cap.. Dispense: 16 g; Refill: 0 2. Bronchitis (Primary) -Take medication as prescribed below to completion -cough and deep breathe -May use Tylenol/Ibuprofen for pain/fever -May use OTC medication such as cough syrups especially at night time for relief, pseudoephedrine for nasal congestion, and/or Cara Pot or saline rinses. -Follow up with in 1 week if no improvement or go to the ED for worsening of symptoms such as SOB or CP - azithromycin (Zithromax) 250 MG tablet; Take 1 tablet (250 mg) by mouth Daily Take 2 tabs on day 1 and 1 tab on days 2-5 then stop Dispense: 6 tablet; Refill: 0 - fluticasone (Flonase) 50 MCG/ACT nasal spray; Administer 1 spray into each nostril in the morningand 1 spray before bedtime. Shake gently. Before first use, prime pump. After use, clean tip and replace cap.. Dispense: 16 g; Refill: 0 documented in this [facility]10-22-2024 History of Present illness Narrative* Irlanda Weaver MA - 11/30/2023 10:30 AM EDT Patient was in today for a follow up on new domes. Patient states she likes the XS closed dome and does feel she is hearing better. Patient states that her one son speaks softly and he still does notfeel she hears well. I offered to turn aids up slightly but patient states she does not want adjustments as she feels she hears well. Patient is scheduled for a follow up in one year. Cosigned by SHANNAN Harding at 12/03/2023 10:14 AM EDT documented in this [facility]10-21-2024 History of Present illness Narrative* Chalo Menjivar MD - 11/29/2023 12:00 PM EDT Face to face Follow up for rheumatoid arthritis/pseudogout/ degenerative joint disease/joint pain/psoriasis/clinical osteoporosis Today's visit 11/29/23:labs due 3months. Prolia due 02/2024. Bmd after 09/01/24.Did fine with last prolia 09/03/23. No dental work planned. Not taking antibiotics. No signs or symptoms of infection. Much better mood lately. taking tylenol, arimidex, chlorthalidone, vitamin D 4000 International Units daily with food, cymbalta 60mg daily. off vitamin b12. NO recent oral steroids. Tibial area psoriasis. NO pseudogout. 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 StablePIPs swelling. Chronic current pain in upper arms R>L, back, knees, hips, feet. Better with activity. Pain bothers her at night. Reports pain 5-8/10. Has minimal AM stiffness. Enjoys spending timewith her great grandson. Feels safe at home. Has enough food, supplies and medications. Overall mildly uncomfortable but happy with rheum care. No falls/fx/trauma/illness/oral sores/rash/hairloss/jawpain/dysphagia/epistaxis/hemoptysis since last visit. No adverse effects with meds. No other complaints. Patient denies fever, chills, cp, dyspnea, nausea, vomiting, night sweats, scalp tenderness, visual changes, murcia, bowel/bladder changes, weight changes or other complaints. Last visit supportive care, restart fall precautions, see vestibular PT for vertigo care, limit basement visits, use cane everywhere, see neurosurgery, tolerating prolia every 6months 03/05/23 since missed/intolerant of weekly fosamax for abnormal BMD/on retirement arimidex, see oncology, follow up with PCP/ENT for sinus hea dache care, increase water intake, f/u podiatry, prn lidocaine ointment, f/u with ortho, see derm if rash/psoriasis persists/worsens/has topicals, OFF plaquenil/restart if high APRs, consult ophthalmology, vit D 4000 International Units daily, in future may consider starting colcrys/dmards/methotrexate (patient declined at this time), restart PT exercises/start chair exercises, daily cymbalta, daily 15mg mobic, prn lidocaine if approved, minimal response with bufferin, prn heat/otc arthritis/tylenol, start low impact weightbearing exercise, calcium citrate, 03/05/23:Patient here requesting prolia. Did fine with last prolia 08/31/22. No dental work planned. Not taking antibiotics. No signs or symptoms of infection. No recent oral steroids. Taking mobic, cymbalta, arimidex, tylenol, vitamin b12, vitamin D 4000 International Units daily with food, hctz. Was able to travel to [place] last year. [facility] 09/01/22 bmd osteopenia/stable 10/2022 +COVID19 infection could [...] happy with rheum care. No falls/fx/trauma/illness/oral sores/rash/hairloss/jaw pain/dysphagia/epistaxis/hemoptysis since last visit. No adverse effects with meds. No other complaints. Patient denies fever, chills, cp, dyspnea, nausea, vomiting,night sweats, scalp tenderness, visual changes, murcia, bowel/bladder changes, weight changes or other complaints. Last visit supportive care, restart fall precautions, limit basement visits, use cane everywhere, see neurosurgery, start prolia if approved since missed/intolerant of weekly fosamax for abnormal BMD/on retirement arimidex, see oncology, follow up with PCP/ENT [...] Not taking calcium. 11/2021 fell going to [employer], chipped a tooth. Had kidney stone 3weeks afterwards. tibial psoriasis. No recent oral steroids. 04/14/22 eye exam.02/23/22 s/p right eye excisio corneal lesion. limited exercise due to pain. Using cane. Better withtwo tylenol. Occasional more if traveling. Hard to take on and off rings swelling. Chronic current pain in hands, wrists, feet, knees, back, hips. Reports pain 05/18. Has minimal AM stiffness. Back from wedding [place]. Will have another family wedding in [place]. COVID vaccine 03/08/20, 03/29/20, 12/25/20, 01/23/22. Feels safe at home. Has enough food, supplies and medications. Overall mildly uncomfortable but happy with rheum care. No falls/fx/trauma/illness/oral sores/rash/hairloss/jaw pain/dysphagia/epis taxis/hemoptysis since last visit. No adverse effects with meds. No other complaints. Patient denies fever, chills, cp, dyspnea, nausea, vomiting, night sweats, scalp tenderness, visual changes, murcia, bowel/bladder changes, weight changes or other complaints. Last visit supportive care, restart fall p recautions, limit basement visits, use cane everywhere, see neurosurgery, weekly fosamax for abnormal BMD/on retirement arimidex, patient will notify office if interested [...] 11/24/21:2weeks ago fell/tripped on parking lot to [employer] outside on L shoulder, L wrist, chipped tooth, broke glasses. Did not have her cane.OFF plaquenil 07/22/21. 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 taking fosamax/forgets sometimes, cymbalta 60mg daily, mobic, vitamin D 2000 Inter national Units daily with food, arimidex. On hctz. Due for flp from primary care provider. Chronic current pain in L shoulder, low back, L wrist, both knees, hips, feet. Worse with cold, rainy weather. Taking tylenol 2+ per day. Reports pain /10. minimal AM stiffness. COVID vaccine Pfizer 03/08/20,03/29/20k . Feels safe at home. Has enough food, supplies and medications. Overall mildly uncomfortable but happy with rheum care. No fx/trauma/illness/oral sores/rash/hairloss/jaw pain/dysphagia/epistaxis/hemoptysis since last visit. No adverse effects with meds. No other complaints. Patientdenies fever, chills, cp, dyspnea, nausea, vomiting, night sweats, scalp tenderness, visual changes, murcia, bowel/bladder changes, weight changes or other complaints. Last visit supportive care, continue fall precautions, limit basement visits, see neurosurgery, weekly fosamax for abnormal BMD/on retirement arimidex, see oncology, follow up with PCP/ENT for sinus headache care, increase water intake, f/u podiatry, prn lidocaine ointment, f/u with ortho, see derm if rash/psoriasis persists/worsens/has topicals, plaquenil daily, see ophthalmology, vit D 4000 International Units daily, in future may consider starting colcrys/dmards/methotrexate (patient declined at this time), restart PT exercises/start chair exercises, daily cymbalta, daily 15mg mobic, prn lidocaine if approved, minimal responsewith bufferin, prn heat/otc arthritis/tylenol, start low impact weightbearing exercise, calcium citrate 12/09/20:Had Pfizer COVID vaccines 03/08/20 and 03/29/20. fosamax. Taking arimidex. 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 S/p L lithotripsy. Waiting to pass renal stone. Her 12y/o dog . Reports pain 04/17. Minimal AM stiffness. Taking mobic and cymbalta. 13 episodes of nausea/vomiting/diarrhea. Saw GI, increased prilosec 40mg daily and recent scope showed diverticula. Tibial pain. Chronic pain in back, feet, hip, hands. no gout or pseudogout flares. Feels safe at home. Has enough food, supplies and medications. Overall mildly uncomfortable but happy with rheum care. No falls/fx/trauma/illness/oral sores/rash/hairloss/jaw pain/dysphagia/epistaxis/hemoptysis since last visit. No adverse effects with meds. No other complaints. Patient denies fever, chills,cp, dyspnea, nausea, vomiting, night sweats, scalp tenderness, visual changes, murcia, bowel/bladder zeenat nges, weight changes or other complaints. Last visit supportive care, restart fall precautions, limit basement visits, see neurosurgery, weekly fosamax for abnormal BMD/on retirement arimidex, see oncology, follow up with PCP/ENT for sinus headache care, increase water intake, f/u podiatry, prn lidocaine ointment, f/u with ortho, see derm if rash/psoriasis persists/worsens/has topicals, plaquenil daily, see ophthalmology, vit D 4000 International Units daily, in future may consider starting colcrys/dmards/methotrexate (patient declined at this time), restart PT exercises/start chair exercises, daily cymbalta, daily 15mg mobic, prn lidocaine if approved, minimal response with bufferin, prn heat/otc arthritis/tylenol, start low impact weightbearing exercise, calcium citrate 04/15/20:fell two weeks ago down the basement stairs, hit nose and teeth but no fractures. Had CT. Feels safe at home. Has enough food, supplies and needs refills of medications. Had both COVID vaccines. Forgot hearing aids. Reports pain 5/10. Minimal AM stiffness. Busy cleaning closets. Will have washer and dryer moved upstairs. Dropped 10bags off at [facility]. Joint pain better with mobic. Has been staying home lately. Wants to attend granddaughter's wedding later this year. Overall mildly uncomfortable but happy with rheum care. No falls/fx/trauma/illness/oral sores/rash/hairloss/jaw pain/dysp hagia/epistaxis/hemoptysis since last visit. No adverse effects with meds. No other complaints. Patient denies fever, chills, cp, dyspnea, nausea, vomiting, night sweats, scalp tenderness, visual changes, murcia, bowel/bladder changes, weight changes or other complaints. Last visit supportive care, start fall precaution, see neurosurgery, weekly fosamax for abnormal BMD/on retirement arimidex, see oncology, follow up with PCP/ENT for sinus headache care, increase waterintake, f/u podiatry, prn lidocaine ointment, f/u with ortho, see derm if rash/psoriasis persists/wo rsens/has topicals, plaquenil daily, see ophthalmology, vit D 4000 International Units daily, in future may consider starting colcrys/dmards/methotrexate (patient declined at this time), continue PT exercises, daily cymbalta, daily 15mg mobic, prn lidocaine if approved, minimal response with bufferin, prn heat/otc arthritis/tylenol, start low impact weightbearing exercise, calcium citrate, 10/06/19:has not missed rheum meds. Had eye exam. Feels safe at home. Has enough food, supplies and medications. Shops for self but wears mask. Low back pain lately, better with PT just started. 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 No steroids since last office visit. Has asper cream, has not tried yet. Reports pain 5/10. Minimal AM stiffness. Overall mildly uncomfortable but happy with rheum care. No falls/fx/trauma/illness/oral sores/rash/hairloss/jaw pa in/dysphagia/epistaxis/hemoptysis since last visit. No adverse effects with meds. No other complaints. Patient denies fever, chills, cp, dyspnea, nausea, vomiting, night sweats, scalp tenderness, visual changes, murcia, bowel/bladder changes, weight changes or other complaints. Last visit supportive care, see neurosurgery, weekly fosamax for abnormal BMD/on retirement arimidex,see oncology, follow up with PCP/ENT for sinus headache care, increase water intake, f/u podiatry, prn lidocaine ointment, f/u with ortho, see derm if rash/psoriasis persists/worsens/has topicals, plaquenil daily, see ophthalmology, vit D 4000 International Units daily, in future may consider starting colcrys/dmards/methotrexate (patient declined at this time), continue PT exercises, daily cymbalta, daily 15mg mobic, prn lidocaine if approved, minimal response with bufferin, prn heat/otc arthritis/tylenol, start low impact weightbearing exercise, calcium citrate 06/01/19:was in hospital for pneumonia 02/21/19. Better now. safe at home. Has enough food, supplies and medications. Has not missed rheum meds. Chronic neck/back pain. Has not see spine clinic for years. Did not received lidocaine ointment. Reports pain in feet/L hands. Red L hand, sometimes swollen, sensitive. Reports pain 5/10. Minimal Am stiffness. Overall mildly uncomfortable but happy with rheum care. No falls/fx/trauma/illness/oral sores/rash/hairloss/jaw pain/dysphagia/epistaxis/hemoptysis since last visit. No adverse effects with meds. No other complaints. Patient denies fever, chills, cp, dyspnea, nausea, vomiting, night sweats, scalp tenderness, visual changes, murcia, bowel/bladder changes, weight changes or other complaints. Last visit supportive care, consult neurosurgery, may consult bisphosphonates if abnormal BMD/on retirement arimidex, see oncology, follow up with PCP/ENT for sinus headache care, increase water intake, f/u podiatry, prn lidocaine ointment, f/u with ortho, see derm if rash/psoriasis persists/worsens/has topicals, plaquenil daily, see ophthalmology, vit D 4000 International Units daily, in future may consider starting colcrys/dmards/methotrexate (patient declined at this time), continue PT exercises, daily cymbalta, daily 15mg mobic, prn lidocaine if approved, minimal response with bufferin, prnheat/otc arthritis/tylenol, start low impact weightbearing exercise, calcium citrate, 11/28/18;s/p breast biopsy summer showed breast cancer treated with lumpectomy and radiation (completed a few weeks ago). Now on arimidex. Chronic neck pain. Psoriasis on legs. Still on plaquenil. Due for eye exam soon. Lidocaine ointment denies. Reports pain 06/17. Minimal Am stiffness. Chronic back pain, surgery years ago. Has urinary changes. Overall mildly uncomfortable but happy with rheum care. No falls/fx/trauma/illness/oral sores/rash/hairloss/jaw pain/dysphagia/epistaxis/hemoptysis since last visit. No adverse effects with meds. No other complaints. Patient denies fever, chills, cp, dyspnea, nausea, vomiting, night sweats, scalp tenderness, visual changes, murcia, bowel/bladder changes,weight changes or other complaints. Last visit supportive care, follow up with PCP/ENT for sinus headache care, increase water intake, f/u podiatry, prn lidocaine ointment, f/u with ortho, see derm if rash/psoriasis persists/worsens/has topicals, plaquenil daily, see ophthalmology, vit D 4000 International Units daily, in future may consider starting colcrys/dmards/methotrexate (patient declined at this time), continue PT exercises, daily cymbalta, daily 15mg mobic, prn lidocaine if approved, minimal response with bufferin, prn heat/otc arthritis/tylenol, start low impact weightbearing exercise, calcium citrate 04/21/18:had sinusitis treated with antibiotics. Still has sinus headaches. Better with tylenol. hands stiff and aches. On computer a great deal. Has not missed rheum meds. Not much exercise. 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 Had eye exams 02/2018 and 03/2018. Cataracts not bad enough for surgery. Chronic back pain. Had injections in the past. Reports pain 3/10. Minimal AM stiffness. Overall mildly uncomfortable but happy with rheum care. No falls/fx/trauma/illness/oral sores/rash/hairloss/jaw p ain/dysphagia/epistaxis/hemoptysis since last visit. No adverse effects with meds. No other complaints. Patient denies fever, chills, cp, dyspnea, nausea, vomiting, night sweats, scalp tenderness, visual changes, murcia, bowel/bladder changes, weight changes or other complaints. Last visit supportive care, follow up with urology/ENT, increase water intake, f/u podiatry, prn lidocaine ointment, f/u with ortho, f/u with PCP for migraine/headache care, see derm if rash/psoriasis persists/worsens/has topicals, plaquenil daily, see ophthalmology, vit D 4000 International Units d aily, in future may consider starting colcrys/dmards/methotrexate (patient declined at this time), continue PT exercises, daily cymbalta, daily 15mg mobic, prn lidocaine if approved, minimal responsewith bufferin, prn heat/otc arthritis/tylenol, start weightbearing exercise, calcium citrate 07/22/17:hand salivary/parotid/tonsil stones on both sides 06/2017, then had both sides lithotripsy for kidney stones. Decreased pop intake. Does drink A lot of coffee. Was not drinking lots of water. Now increased water intake. Has mild joint pain. Was off plquenil. Just restarted plaquenil and noticed metallic taste. Has not affected her appetite. Psoriasis on R leg, no change with plaquenil. Duefor eye exam. Concerned about fuchs or early macular degeneration. Due for eye exam. Reports pain 3/10. Minimal AM stiffness. overall mildly uncomfortable but happy with rheum care. No falls/fx/trauma/illness/oral sores/rash/hairloss/jaw pain/dysphagia/epistaxis/hemoptysis since last visit. No adverse effects with meds. No other complaints. Patient denies fever, chills, cp, dyspnea, nausea, vomiting, night sweats, scalp tenderness, visual changes, murcia, bowel/bladder changes, weight changes or other complaints. Last visit supportive care, f/u podiatry, prn lidocaine ointment, f/u with ortho, f/u with PCP for migraine/headache care, see derm if rash/psoriasis persists/worsens/has topicals, plaquenil daily, see ophthalmology, vit D 4000 International Units daily, in future may consider starting colcrys/dmard s/methotrexate (patient declined at this time), continue PT exercises, daily cymbalta, daily 15mg mobic, restart prn lidocaine if approved, minimal response with bufferin, prn heat/otc arthritis/tylenol, start weightbearing exercise, calcium citrate 12/17/16;reports outbreak to right lower leg. Minimal AM stiffness. Back from [employer] Walking and visiting [employer] program. Has two spots of psoriasis on R outer tibial area. Has cream from Derm. Had s/p L TKR 06/2016. completed PT. Occasional numbness on medial knee. Now has hearing aids. Had eyeexam, has early cataract and fuchs. R kidney stone stable. Reports joint pain 02/17. Overall mildly uncomfortable but happy with rheum care. No falls/fx/trauma/illness/oral sores/rash/hairloss/jaw pain/dysphagia/epistaxis/hemoptysis since last visit. No adverse effects with meds. No other complaints. Patient denies fever, chills, cp, dyspnea, nausea, vomiting, night sweats, scalp tenderness, visual changes, murcia, bowel/bladder changes, weight changes or other complaints. Last visit supportive care, f/u podiatry, prn lidocaine ointment, f/u with ortho for L TKR scheduled 06/25/16, f/u with PCP for migraine/headache care, see derm if rash/psoriasis recurs, vit D 4000 International Units daily, in future may consider starting colcrys/dmards/methotrexate (patient declined at this time), restart when able PT for back/hip pain, daily cymbalta, daily 15mg mobic (hold 1week prior to surgery), restart prn lidocaine if approved, minimal response with bufferin, prn heat/otc arthritis/tylenol, start weightbearing exercise, calcium citrate, 06/14/16:reports rash to right lower leg psoriasis, better with topicals. Recent kidney infection/stone on R side, better with keflex. Postponed L TKR surgery to later this month. Swelling behind R knee. using cane. Seeing urology. R TKR doing fine. Has not missed plaquenil. Had eye exam 03/2016. Overall uncomfortable and happy with rheum care. No falls/fx/trauma/illness/oral sores/rash/hairloss/jawpain/dysphagia/epistaxis/hemoptysis since last visit. No adverse effects with meds. No other complaints. Patient denies fever, chills, cp, dyspnea, nausea, vomiting, night sweats, scalp tenderness, visual changes, murcia, bowel/bladder changes, weight changes or other complaints. Last visit supportive care, consult podiatry, prn lidocaine ointment, f/u with PCP for migraine/headache care, see derm if rash/psoriasis recurs, vit D 4000 International Units daily, in future may consider starting colcrys/dmards/methotrexate (patient declined at this time), continue PT for back/hip pain, daily cymbalta, daily 15mg mobic, minimal bufferin, prn heat/otc arthritis/tylenol, start weightbearing exercise, calcium citrate 11/25/15:reports pain to bilat feet-10/10 at night. Minimal AM stiffness. Saw ortho for L knee paintreated with drainage and cortisone injections. Helped knee pain for 2weeks. May consider L TKR in future. Has had back pain for long time. Used to seen years ago. Better with steroids. Psoriasis improved with derm. Likes lidocaine ointment. Overall doing ok and happy with care. No falls/fx/trauma/illness/oral sores/rash/hairloss/jaw pain/dysphagia/epistaxis/hemoptysis since last visit. No adverse effects with meds. No other complaints. Patient denies fever, chills, cp, dyspnea, nausea, vomiting, night sweats, scalp tenderness, visual changes, murcia, bowel/bladder changes, weight changesor other complaints. Last visit supportive care, f/u with podiatry, prn lidocaine ointment, f/u with PCP for migraine/headache care, see derm if rash/psoriasis recurs, vit D 4000 International Units daily, in future may consider starting colcrys (patient declined at this time), continue PT for back/hip pain, daily cymbalta, daily 15mg mobic, minimal bufferin, prn heat/otc arthritis/tylenol, start weightbearing exercise, calcium citrate 02/25/15:reports all over 10 - took two tylenol. Minimal AM stiffness. Saw derm for rosacea, fungal infection of L nipple, LLE psoriasis. Better with topicals. Fall since last OV, when walking backwards into hole in ground. Found blood in urine from two kidney stones/saw urology/cystoscopy. limiting soda and coffee. Lidocaine ointment helps. Overall doing better and happy with care. No fx/trauma/illness/oral sores/rash/hairloss/jaw pain/dysphagia/epistaxis/hemoptysis since last visit. No adverse effects with meds. No other complaints. Patient denies fever, chills, cp, dyspnea, nausea, vomiting, night sweats, scalp tenderness, visual changes, murcia, bowel/bladder changes, weight changes or other complaints. Last visit supportive care, f/u with podiatry, start lidocaine ointment, f/u with PCP for migraine/headache care, see derm if rash/psoriasis recurs, vit D 4000 International Units daily, in future may consider starting colcrys (patient declined at this time), continue PT for back/hip pain, daily cymbalta, daily 15mg mobic, minimal bufferin, prn heat/otc arthritis/tylenol, start weightbearing exercise, calcium citrate 08/22/14:reports sciatic pain to bilat legs 08/17. Minimal AM stiffness. mobic 15mg daily helps. No calcium. Headaches tolerable. PT exercises not helpful. Saw Derm for psoriasis/rash on breast/face. Back pain better with cymbalta. R 2nd toe more than 3rd toe pain. Overall doing ok and happy with care. No falls/fx/trauma/illness/oral sores/rash/hairloss/jaw pain/dysphagia/epistaxis/hemoptysis sincelast visit. No adverse effects with meds. No other complaints. Patient denies fever, chills, cp, dyspnea, nausea, vomiting, night sweats, scalp tenderness, visual changes, murcia, bowel/bladder changes, weight changes or other complaints. Last visit supportive care, f/u with PCP for migraine/headache care, see derm if rash/psoriasis recurs, vit D 4000 International Units daily, in future may consider starting colcrys (patient declinedat this time), continue PT for back/hip pain, prn ultram, daily cymbalta, daily 15mg mobic, minimalbufferin, prn heat/otc arthritis/tylenol, start weightbearing exercise, calcium citrate 11/22/13:has headache/occipital area, similar to prior migraines. Tried tylenol no response. Out offiorecet. Never tried ultram. tripped twice over the dog gate and hit R knee. Saw ortho, TKR still in place. No oral sores/rash/hairloss.still taking mobic. No pain today 0/10. Minimal AM stiffness. No pseudogout flares since last OV. No falls/fx/trauma/illness since last visit. No adverse effects with meds. No other complaints. Patient denies fever, chills, cp, dyspnea, nausea, vomiting, night sweats, scalp tenderness, visual changes, murcia, bowel/bladder changes, weight changes or other complaints. Last visit consult derm for rash/psoriasis, vit D 4000 International Units daily, in future may consider starting colcrys (patient declined at this time), continue PT for back/hip pain, prn ultram, daily cymbalta, daily 15mg mobic, minimal bufferin, prn heat/otc arthritis/tylenol, start weightbearing exercise, calcium citrate 02/22/13:has rosacea. RLE red rash every winter. Better with sunlight. Saw derm in [place] but no change. Father/brothers have the same rash/itches. Has had rash for years. Back pain chronic but tolerated. Already had injections/surgery on back. Bought new mattress. Hip pain better. mobic helps joint/back pain. tramadol and cymbalta helps. No numbness and tingling. No oral sores/rash/hairloss. Nomore salivary gland swelling. No falls/fx/trauma/illness since last visit. No adverse effects with meds. No other complaints. Patient denies fever, chills, cp, dyspnea, nausea, vomiting, night sweats, scalp tenderness, visual changes, murcia, bowel/bladder changes, weight changes or other complaints. Last visit in future may consider starting colcrys (patient declined at this time), continue PT forback/hip pain, prn ultram, f/u with PCP for considering cymbalta if off paxil, daily 15mg mobic, minimal bufferin, prn heat/otc arthritis/tylenol, start weightbearing exercise, start calcium citrate,take daily vit D if labs NL 07/13/12:R hip improved with injection. Saw orhto and found to have back xrays full of arthritis. Treated with PT and aquatic therapy-improved. R salivary gland stone. Doing well today 04/17- diffusely aches. Minimal Am stiffness. Busy watching grandchildren to watch the sports games. No falls/fx/trauma/illness since last visit. No adverse effects with meds. No other complaints. Patient denies fever, chills, cp, dyspnea, nausea, vomiting, night sweats, scalp tenderness, visual changes, murcia, bowel/bladder changes, weight changes or other complaints. Last visit 20mg kenalog R trochanteric bursa, start trial ultram, f/u with PCP for considering cymbalta if off paxil, daily 15mg mobic, minimal bufferin, prn heat/otc arthritis/tylenol, start weightbearing exercise, start calcium citrate, take daily vit D if labs NL. See notes 04/15/20-11/25/11 for details on prior visit Plaquenil 11/2015-off 07/22/21 Fosamax 11/2018-present 09/25/11 HPI: here for RA eval. Fell before TKR she had screw loose. Had a stress fx or RLEafter TKR. Brake R ankle 7yrs aog. RUE fx 30yrs. had b/l hip bursitis injections with ortho 07/2011 with good results. Pain is back. High stress with with rectal cancer/surgery next week. She really liked vioxx. Was on celebrex for 5yrs and switched to naproxen (does not like it, GI upset). RHEUM. ROS: Joint pain: yes- hips,-worse at night, back, L knee, fingers x 10years ago, thumb pain, feet, new bumpn on R 3rd toe Am stiffness: yes- 1hr Low back pain: yes- s/p Laminectomy lumbar 1998 for rupture; has had back injectionso Skin thickening, psoriasis, photosensitivity, purpura: skin changes worse in winter on legs Eye inflammation: glasses, GI problems-diarrhea/bleeding/IBD/Gluten intolerence/Dysphagia: gerd Organ inv-Serositis:asthma Renal/liver disease: kidney stones Fatigue: sleeps 8hr/night, up to urinate every 2hr PMR/GCA ROS: negative Other ROS:The remainder of the review of systems is negative. 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 (socially only) Alcohol Use: Yes (socially) TESTS: 07/13/23 normal vitamin D 46.2; 06/03/23 eye exam age related macular degeneration treated with avastin, fuch's dystrophy, pseudophakia, dry eyes syndrome. 06/03/23 normal vitamin D 60.7; 03/05/23 low vitamin D 28.1;high glucose 137;normal cbc, cmp, esr 5, crp 0.4; [facility] 09/01/22 bmd osteopenia/stable L1-4 1.298g/cm2, tscore 2.3, zscore 5; Left fem neck 0.795g/cm2, tscore-0.5, zscore 1.8; Left total hip 0.909g/cm2, tscore-0.3, zscore1.8; Right fem nec 0.796g/cm2, tscore-0.5, zscore1.8; Right total hip 0.920g/cm2, tscore-0., zscore1.9; Left 1/3 forearm 0.606g/cm2, tscore-1.3, zscore1.9; 08/03/22 normal cbc, cmp, esr 8(8), crp 0.3 (0.9), vitamin D 41.2, vitamin b12- 1551, uric acid 3.1; 04/16/21 normal cbc, cmp, esr 8, crp 0.9, vitamin D 39.3, vitamin r70-9951, uric acid 4.1; [facility] 08/26/20 bmd osteopenia/improved spine/decreased forearm L1-4 1.348g/cm2, tscore 2.7, zscore 5.3;improved by 8.4% prior L fem neck 0.789g/cm2, tscore-0.7, zscore1.5;L total hip 0.948g/cm2, tscore0,zscore2.0;R fem neck 0.823g/cm2, tscore-0.2, zscore2.0;R total hip 0.952g/cm2, tscore0.1, zscore2.1; L 02/10 forearm 0.603g/cm2, tscore-1.4, zscore1.6;decreased -2.2% to prior imaging 04/15/20 borderline calcium 10.3;NL rest of cmp, cbc, esr 8 (13), crp 0.4, uric acid 4.3, vitamin D 50.4, vitamin b12-722; [facility] 06/29/19 normal vitamin D 44, cmp, glu 88, creat 0.81 potassium 3.8, calcium 10, ast 14, alt 8, uric acid 4.5 [facility] 08/19/18 osteopenia L1-4 1.242g/cm2, tscore 1.8, zscore 4.3;L fem neck 0.796g/cm2, tscore-0.5, zscore1.7;L total hip 0.966g/cm2, tscore0,zscore1.7;R fem neck 0.802g/cm2, tscore-0.4, zscore1.9;L forearm 0.617g/cm2, tscore-1.2, zscore1.6; 04/21/18 high vitamin b12>2000;NL cbc, cmp, esr 13 (26), crp 0.6 (1.4), uric acid 3.9, vitamin D 39.8; 07/22/17 high esr 26 (14), crp 1.4 (1.6);normal rest of cbc, cmp, uric acid 4.6, vitamin D 54.2; [facility] note Hernan Lyons, OD 10/05/16: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 Cataract OU. Posterior vitreal detachment OU. F/u 6months complete eye exam with OCT-Rtesting. 06/02/16 NL bmp, cbc, hgba1c 5.8,negative urine culture; 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 Cataract OU, fuch's dystrophy OU, refractive error OU. F/u with 6months. 11/25/15 high crp 1.3 (1), vit b12>2000;NL esr 10, vit D 51.3, uric acid 5.4; 11/25/15 feet xrays-There are severe bilateral TMT and right first MTP joint degenerative changes. Moderate left first MTP degenerative change. Mild to moderate bilateral talonavicular and interphalangeal joint degenerative changes. Bipartite hallux sesamoids bilaterally 02/25/15 NL urine protein 8, cmp, cbc, esr 8, crp 1 (1.1), vit D 39.1, c3-137, c4-28, af00-614, uricacid 4.6;negative dsdna<12, hla b27; pending ch50, 08/22/14 high crp 1.1 (0.8);NL esr 9, cmp, cbc; 11/22/13 high calcium 10.6;NL rest of cmp, cbc, esr 9, crp 0.8, vit D 36.7; 02/22/13 NL vit D 35.7; [facility] 11/15/12 NL cmp, calcium 10, creat 0.66, ast 14, alt 9, alk phos 88, wbc 7.5, hgb 13.5, plts 303, vit D 30;low tsh 0.24; 02/10/12 hip xrays-Tiny marginal osteophytes of both hip joints. Tiny mineralized opacity lateral to the right hip and minimal chondrocalcinosis of both hips. 11/25/11 NL/improved vit D 55.4; 09/25/11 low vit D 17.5;NL uric acid 4.4, esr 5, crp 0.8;negative rf<7, ccp<15;+leticia ifa 1:320/homogenous;hand xrays-osteoarthritis (spurring, JSN, STS); 07/13/09 low hgb 8.9;NL wbc 9.81, plts 255;07/10/09 NL hgb 11.6;high wbc 12.58;NL plts 243;06/21/09 NL creat 0.77; PHYSICAL EXAM reviewed vitals from last visit BP 132/59 Pulse 78 Wt 179 lb (81.2kg) BP 131/82 Pulse 96 Wt 70.7 kg (155 lb 13.8 oz) BMI 27.61 kg/m Gen; A&Ox3, NAD, very pleasant, smiling, good mood, speaks in full sentences without distress GAIT: ambulates slowly with assistance and cane HEENT: NC/AT, +mmm, no lad/jvd/thyromegaly/sores/exudates/thrush, EOMI/PERRL, no conjunctival injection/scleral icterus, no alopecia, normal/nontender temporal arteries, normal nares, Yes glasses, fair dentitionm forgot hearing aids CV; +s1, s2, RRR, no murmurs Lungs: CTAB ABD: +bs, soft, ntnd, no hsm Ext: No pedal edema, no cyanosis/clubbing Hands: heberden and gerri nodes, tender to palpation, no swelling, no warmth/erythema, full range of motion (from) Wrists: L tender to palpation, fair range of motion, negative Tinel's test and deena test. Elbows-nontender, from, no swelling/warmth/erythema Shoulders-R>L UEs mildly tenderness to palpation with full range of motion, no warmth/erythema Knees: s/p R & L TKR, both tenderness to palpation, decreased range of motion due to pain, no crepitus, no warmth/erythema/swelling Ankles/feet:R great bunion/growth, R 2nd and diffusely both feet tender to palpation, no synovitis,no swelling/warmth/erythema, from Hips: fair range of motion, R>L trochanteric bursa mild tender to palpation with fair range of motion Back: cervical < lumbar tender to palpation, from CN-II-XII grossly intact, normal pulses/reflexes Strength 5/5, tone normal Skin-patches of red on Right tibial area Nails-no pitting TENDER POINTS: 0/18 IMPRESSION/DIAGNOSIS:11/29/23 M11.89 Pseudogout involving multiple joints (primary encounter diagnosis) R79.89 Elevated LFTs D63.8 Anemia of chronic disease R70.0 Elevated sed rate R79.82 Elevated C-reactive protein (CRP) E55.9 Vitamin D deficiency M81.0 Postmenopausal osteoporosis of multiple sites E79.0 Hyperuricemia M96.1 Postlaminectomy syndrome, lumbar region M15.3 Secondary osteoarthritis of multiple sites Z92.89 Personal history of other medical treatment R76.8 LETICIA positive M25.60 Joint stiffness of multiple sites Z84.0 Family history of lupus erythematosus 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, multiple sites M79.671, M79.672 Pain in both feet M25.551, M25.552 Hip pain, bilateral M25.561, M25.562, G89.29 Chronic pain of both knees M79.621, M79.622 Pain in both upper arms Z92.29 Personal history of other drug therapy 83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 [employer] (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) with PMH:goiter/hypothyroidism, urinary calculus, htn, lumbago, depression, breast bx L, s/p Laminectomy lumbar 1998 for rupture disc, s/p R partial knee replacement 2007, s/p ex-lap with tubal ligation, gerd, asthma, shingles x 3 (trunk) presents with worsening polyarticular joint pain (R>L hip, thumbs, hands, L knee, neck, back), extendedAM stiffness, kidney stones (calcium/urate), heberden/gerri nodes, degenerative joint disease onimaging, +leticia ifa 1:320/homogenous, low vit D, better with cortisone injections has findings with secondary osteoarthritis, low vit D, early inflammatory disease, history R great two and R 2nd toe pain, sciatica to b/l LE,s/p L TKR 06/2016, history groin abscess treated with I&D/antibiotics 12/2016, here with arthralgias/back pain, two salivary/parotid/tonsil stones, two lithotripsy for kidney stones, had sinusitis treated with antibiotics. Still has sinus headaches. Better with tylenol. hands stiff and aches. On computer a great deal. Has not missed rheum meds. Not much exercise. Used to [employer] twice a week at hospital. Had eye exams 02/2018 and 03/2018. Cataracts not bad enough for surgery. s/p breast biopsy summer showed breast cancer treated with lumpectomy a nd radiation (completed a few weeks ago). Now on arimidex. Chronic neck pain. Psoriasis on legs.hasnot missed rheum meds. Had eye exam. Shops for self but wears mask. Low back pain lately, better with PT just started. 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 Nosteroids since last office visit.fell two weeks ago down the basement stairs, hit nose and teeth but no fractures. Had CT. Was Busy cleaning closets. washer and dryer moved upstairs. Dropped 10bags off at [facility]. Joint pain better with mobic. Had Pfizer COVID vaccines 03/08/20 and 03/29/20. fosamax. Taking arimidex. 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 S/p L li thotripsy. Waiting to pass renal stone. Her 12y/o dog . history 13 episodes of nausea/vomiting/diarrhea. Saw GI, increased prilosec 40mg daily and recent scope showed diverticula. Tibial pain. Last year fell/tripped on parking lot to [employer] outside on L shoulder, L wrist, chipped tooth, broke glasses. Did not have her cane.OFF plaquenil 07/22/21. 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 Pain Worse with cold, rainy weather. Taking tylenol 2+ per day. due for labs. Due for bmd after 08/26/22. missed fosamax/seeing GI for GI upset/possible IBS, Not taking calcium. 11/2021 fell going to [employer] game, chipped a tooth. Had kidney stone 3weeks afterwards. tibial psoriasis.04/14/22 eye exam. 02/23/22 s/p right eye excisio corneal lesion. Occasional more if traveling. Hard to take on and off rings swelling. Back from [place]. Was able to travel to [place] last year. [facility] 09/01/22 bmd osteopenia/stable 10/2022 +COVID19 infection could not tolerated paxlovid Few weeks later developed severe dizziness/vertigo, started PT with some improvement Then saw primary care provider, high BP stable cardiac stress test, reports vision different, stable CT head Requesting to see /ophthalmology High stress daughter s/p lumbar surgery for scoliosis/lots of hardware Using cane. limited exercise due to dizziness. Pain worse in AM. Better with tylenol. COVID vaccine03/08/20, 03/29/20, 12/25/20, 01/23/22. labs due 3months. Prolia due 02/2024. Bmd after 09/01/24.Did fine with last prolia 09/03/23. No dental work planned. Not taking antibiotics. No signs or symptoms ofinfection. Much better mood lately. taking tylenol, arimidex, chlorthalidone, vitamin D 4000 International Units daily with food, cymbalta 60mg daily. off vitamin b12. NO recent oral steroids. Tibial area psoriasis. NO pseudogout. 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 StablePIPs swelling. Chronic current pain in upper arms R>L, back, knees, hips, feet. Better with activity. Pain bothers her at night. Reports pain 5-8/10. Has minimal AM stiffness. Enjoys spending timewith her great grandson. Feels safe at home. Has enough food, supplies and medications. Overall mildly uncomfortable but happy with rheum care. Will complete workup for reported symptoms = supportive care, restart fall precautions, see vestibular PT for vertigo care, limit basement visits, use cane everywhere, see neurosurgery, tolerating prolia every 6months last one 09/03/23& 03/05/23 since missed/intolerant of weekly fosamax for abnormal BMD/on retirement arimidex, see oncology, follow up with PCP/ENT for sinus headache care, increase water intake, f/u podiatry, prn lidocaine ointment, f/u with ortho, see derm if rash/psoriasis persists/worsens/has topicals, OFF plaquenil/restart if high APRs, see ophthalmology/will start eye injections for wet macular degeneration, vit D 4000 International Units daily, in future may consider starting colcrys/dmards/methotrexate (patient declined at this time), restart PT exercises/start chair exercises, daily cymbalta, daily 15mg mobic,prn lidocaine if approved, minimal response with bufferin, prn heat/otc arthritis/tylenol, start low impact weightbearing exercise, calcium citrate, answered all questions and concerns-patient voicedunderstanding. RECOMMENDATION/PLAN: Office Visit on 11/29/23 DXA-FOREARM SKELETON DXA-AXIAL SKELETON BD DXA TRABECULAR BONE SCORE (TBS) COMPREHENSIVE METABOLIC PANEL COMPLETE BLOOD COUNT SEDIMENTATION RATE, WESTERGREN C-REACTIVE PROTEIN VITAMIN D 25 HYDROXY URIC ACID Reviwed labs/tests with patient Reviewed Provided printed info on osteoarthritis, bursitis, back pain, nsaids, LETICIA, lupus 08/03/22 precert for prolia Modified11/29/23 DURGA 1, pain 50-80%;03/05/23 DURGA 1, pain 30-40%;08/03/22 DURGA 1, pain 40%;12/09/20 DURGA 0, pain 30%;04/15/20 DURGA 0, pain 50%;10/06/19 DURGA 0, pain 50%; DURGA 0, pain 50%;04/21/18 DURGA 0, pain 30%;07/22/17 DURGA 0, pain 30%;12/17/16 DURGA 0, pain 10%;11/25/15 DURGA 0, pain 100%;02/25/15 DURGA 0, pain 50%;08/22/14 DURGA 0, pain 70%;11/22/13 DURGA 0, pain 0%;02/22/13 DURGA 0, pain 0%;07/13/12 DURGA 0, pain 30%;02/10/12 DURGA 1, pain 100%;11/25/11 DURGA 0.5, pain 30%;09/25/11 DURGA 1, pain 40%; 12/09/20 obtain medical release for bone mineral density results from [facility] 02/10/12=20mg kenalog R trochanteric bursa in future may consider starting colcrys 03/05/23 check cmp, cbc, esr, crp, vit D, uric acid in future, check dsdna, c3, c4, ch50, hla b27,urine protein, BMD May apply over the counter arthritis cream [...] D 4000 International Units daily with food Recommend goal: exercising 30minutes 3 times a week Recommend weight-bearing aerobic exercises such as walking, dancing, low impact aerobics, elliptical machine, stair climbing, gardening flexibility exercises and strength training exercises Recommend avoiding high impact exercises such as jumping, running or jogging or movements where youbend forward and twist the waist, for instance- touching your toes, sit-ups, using row mach. see Derm for skin changes Increase water intake prior to and 1week to prolia or IV reclast Next prolia due every 6months, prior prolia 08/31/22, 03/05/23, 09/03/23 Next bone mineral density after 09/01/24 nonfasting labs as scheduled Bone Health Recommendations: -Bone Density is recommended after menopause and after age 55-60, sooner if patient has risk factors, sooner if on systemic steroid use of 3 months or more. -Vitamin D supplementation recommended, optimal dose is the dose necessary to achieve Vitamin D 25-OH blood level in range of 40-50 ng/mL. -Recommended daily dose of calcium: 1200mg total a day in divided doses. Calcium from dietary sources, if not sufficient, or if with h/o calcium nephrolithiasis would recommend Calcium Citrate supplement, as it is recommended to avoid caclium carbonate products, which as main dietary calcium source. -Regular weight-bearing and muscle-strengthening exercise -Avoidance of tobacco smoking, excessive alcohol intake and excessive caffeine intake. -Fall and fracture precautions Discussed medication dosage, usage, goals of therapy, and side effects. Stressed the importance of following up with PCP and specialists for his/her chronic diseases, health, CV, and cancer screening and continued care. Will follow disease activity/progression and adjusttherapeutic regimen to disease activity and severity. Discussed findings, impression and plan with patient. Patient understands above plan; questions asked and answered. Patient agrees to plan as noted above. The above reflects my independent exam and review. I saw and examined the patient myself personally. Parts of the HPI, ROS, exam and impression/plan may have been copied from my personal previous clinical note and remain pertinent. Current changes have been made and documented today. Other parts ordata were deleted if not relevant for today. Plan as outlined. Medical decision making was high complexity due to patient's, multiple symptoms, multiple advancing diseases. Time spent with patient inaddition to Counseling and Coordination of Care,spent more than 50% of the phone or ofmr-lh-[id number] time in counseling, explanation of diagnosis, and planning of further management, I spent a total of 30 minutes on the date of the service which included preparing to talk with the patient, nhlb-hg-yibtuclhirf care, completing clinical documentation, obtaining and/or reviewing separately obtained history, performing a medically appropriate examination, counseling and educating the patient/family/caregiver, ordering medications, tests, or procedures, communicating with other HCPs (not separately reported), independently interpreting results (not separately reported), communicating results to thepatient/family/caregiver and care coordination (not separately reported) F/U every 6months for prolia, earlier if needed Recommendations: -see above I will relay my findings and recommendations to the physician requesting the consult by letter/electronic shared medical records. I had the pleasure of seeing your patient, Ms.Falter for RA, joint pain. Please feel free to contact my office if you need additional information or have further questions or concerns. Thank you for allowing me to participate in the care of your patient. Chalo Menjivar MD cc Robert Crocker II, MD;Dr.Paul Leroy [address] [facility] [place] [address] documented in this encounterTog[facility]10-21-[facility]24 NoteHNO ID: [id number] Author: CHALO MENJIVAR MD Service: ? Author Type: Physician Type: Progress Notes Filed: 11/29/2023 12:48 Note Text: Face to face Follow up for rheumatoid arthritis/pseudogout/ degenerative joint disease/joint pain/psoriasis/clinical osteoporosis Today's visit 11/29/23:labs due 3months. Prolia due 02/2024. Bmd after 09/01/24.Did fine with last prolia 09/03/23. No dental work planned. Not taking antibiotics. No signs or symptoms of infection. Much better mood lately. taking tylenol, arimidex, chlorthalidone, vitamin D 4000 International Units daily with food, cymbalta 60mg daily. off vitamin b12. NO recent oral steroids. Tibial area psoriasis. NO pseudogout. 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 Stable PIPs swelling. Chronic current pain in upper arms R>L, back, knees, hips, feet. Better with activity. Pain bothers her at night. Reports pain 5-8/10. Has minimal AM stiffness. Enjoys spending time with her great grandson. Feels safe at home. Has enough food, supplies and medications. Overall mildly uncomfortable but happy with rheum care. No falls/fx/trauma/illness/oral sores/rash/hairloss/jaw pain/dysphagia/epistaxis/hemoptysis since last visit. No adverse effects with meds. No other complaints. Patient denies fever, chills, cp, dyspnea, nausea, vomiting, night sweats, scalp tenderness, visual changes, murcia, bowel/bladder changes, weight changes or other complaints. Last visit supportive care, restart fall precautions, see vestibular PT for vertigo care, limit basement visits, use cane everywhere, see neurosurgery, tolerating prolia every 6months 03/05/23 since missed/intolerant of weekly fosamax for abnormal BMD/on retirement arimidex, see oncology, follow up with PCP/ENT for sinus headache care, increase water intake, f/u podiatry, prn lidocaine ointment, f/u with ortho, see derm if rash/psoriasis persists/worsens/has topicals, OFF plaquenil/restart if high APRs, consult ophthalmology, vit D 4000 International Units daily, in future may consider starting colcrys/dmards/methotrexate (patient declined at this time), restart PT exercises/start chair exercises, daily cymbalta, daily 15mg mobic, prn lidocaine if approved, minimal response with bufferin, prn heat/otc arthritis/tylenol, start low impact weightbearing exercise, calcium citrate, 03/05/23:Patient here requesting prolia. Did fine with last prolia 08/31/22. No dental work planned. Not taking antibiotics. No signs or symptoms of infection. No recent oral steroids. Taking mobic, cymbalta, arimidex, tylenol, vitamin b12, vitamin D 4000 International Units daily with food, hctz. Was able to travel to [place] last year. [facility] 09/01/22 bmd osteopenia/stable 10/2022 +COVID19 infection could [...] happy with rheum care. No falls/fx/trauma/illness/oral sores/rash/hairloss/jaw pain/dysphagia/epistaxis/hemoptysis since last visit. No adverse effects with meds. No other complaints. Patient denies fever, chills, cp, dyspnea, nausea, vomiting, night sweats, scalp tenderness, visual changes, murcia, bowel/bladder changes, weight changes or other complaints. Last visit supportive care, restart fall precautions, limit basement visits, use cane everywhere, see neurosurgery, start prolia if approved since missed/intolerant of weekly fosamax for abnormal BMD/on retirement arimidex, see oncology, follow up with PCP/ENT [...] daily 15mg mobic, prn lidocaine if approved, (more content not included)...[facility]10-20-2024 Instructions* Patient Instructions* Chalo Menjivar MD - 11/28/2023 8:23 PM EDT May apply over the counter arthritis cream [...] jumping, running or jogging or movements where youbend forward and twist the waist, for instance- touching your toes, sit-ups, using row mach. see Derm for skin changes Increase water intake prior to and 1week to prolia or IV reclast Next prolia due every 6months, prior prolia 08/31/22, 03/05/23, 09/03/23 Next bone mineral density after 09/01/24 nonfasting labs as scheduled Thank you. 07/13/23 normal vitamin D 46.2; 03/05/23 low vitamin D 28.1;high glucose 137;normal cbc, cmp, esr 5, crp 0.4; [facility] 09/01/22 bmd osteopenia/stable BONE MINERAL DENSITY PATIENT INSTRUCTIONS Bone mineral density testing measures the amount of calcium in certain parts of your bones. This information determines how strong your bones are. The test is used to detect osteoporosis, a disease in which the bone's mineral content and density are low, increasing a person's risk of fractures. Thelumbar spine (lower back) and the hip are the skeletal sites usually examined. For the test, remember that: 1. You cannot take this test if you are . 2. Eat a normal diet on the day of the test. 3. Take your medications as you normally would. 4. DO NOT take calcium supplements (such as Tums) for 24 hours before the test. 5. On the day of the test, leave valuables (jewelry or credit cards) at home. 6. The test should be performed prior to oral, rectal or IV contrast studies, or at least 7 days after any of these studies. For the test, you may be asked to wear a hospital gown. You will lie on your back, on a padded table, in a comfortable position. Generally, you can resume your usual activities immediately. documented in this encounterTog[facility]10-03-2024 NoteDate of Procedure 11/11/2023. Pharmacy Scheduler Information Air Traffic Control Manager: af. Interpretation Right Eye Abnormal foveal contour. Findings include Drusen, RPE Irregularity, Atrophy; Negative for Intraretinal fluid, Subretinal fluid. Left Eye Abnormal foveal contour. Findings include Drusen, RPE Irregularity, Atrophy; Negative for Intraretinal fluid, Subretinal fluid. Interval Change Right Eye Stable. Left Eye Stable.[id number] NoteDate of Procedure 11/11/2023 [place] Protocol Safety Checklist Sign In: A moment [...] foreign bodies accounted for. Specimen containers correctly labeled.[facility] 11-11-2023 NoteDate of Procedure 11/11/2023 [place] Protocol Safety Checklist Sign In: A moment [...] follow up management communicated. Specimen containers correctly labeled.[facility]10-03-[facility] Instructions* Patient Instructions* Brando Shields MD - 11/11/2023 10:02 AM EDT Post Injection Patient Information You [...] than dabbing lightly with a tissue An fqnl-bpn-ywqlpso pain reliever (i.e. Tylenol) can be used [...] If it is after hours please call [phone] which will give instructions on how to reach the eye doctor electronic warfare linguist documented in this encounterTogus Va [facility] Center10-03-2024 NoteHNO ID: [id number] Author: BRANDO SHIELDS MD Service: ? Author Type: Physician Type: Progress Notes Filed: 11/11/2023 10:06 Note Text: Referred by Dr. Anderson Age related macular degeneration - Smoking history: quit a long time ago; Family history: yes - Amsler grid and AREDS2 use reviewed. 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 [facility]10-03-2024 History of Present illness Narrative* Brando Shields MD - 11/11/2023 10:01 AM EDT Referred by Dr. Anderson Age related macular degeneration - Smoking history: quit a long time ago; Family history: yes - Amsler grid and AREDS2 use reviewed. 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 documented in this encounterTogus [facility] Center09-25-2024 History of Present illness Narrative* Irlanda Weaver MA - 11/03/2023 1:00 PM EDT Patient was in today for a two week follow up on new hearing aids. Patient feels she is hearing well. She did not ask for any adjustments. She did mention that she still has trouble hearing on landline. I advised lifting the senior quality engineer to deliver sound into hearing aid. Patient states she will try todo this. Feedback was audible during appointmnt. I suggested to patient that we try an XS closed dome. Patient was able to insert and agreed that sound was clearer. Patient was scheduled for a followup in approx one month to see how she is doing with new dome. Patient was also scheduled for an endof service appointment in approx one year. documented in this encounterLiberty [id number] History of Present illness Narrative* Mounika Dick DO - 11/02/2023 10:40 AM EDT Images from the original note were not included. Flowsheet Row Office Visit from 11/02/2023 in [facility] with Mounika Dick DO Hospital Information Discharged To: Home Setting Discharge Hospital [facility] Diagnosis UTI Discharge Date 10/27/23 Engagement Admission Date 10/27/23 Medications Discharge medications reviewed and reconciled from hospital? Yes Is the patient having any side effects they believe may be caused by any medication additions or changes? No Does the patient have all medications ordered at discharge? Yes Nursing Interventions No intervention needed Prescription Comments Cipro, Hyoscyamine, Ondansetron Is the patient taking all medications as directed (includes completed medication regime)? Yes Appointments Does the patient have a primary care provider? Yes Has the patient kept scheduled appointments due by today? Yes Self Management Patient Teaching Does the patient have access to their discharge instructions? Yes Wrap Up SUBJECTIVE: HPI: Fantasma Lewis is a 83 y.o. female who presents with chief complaint of No chief complaint on file. Pt presents for her ER follow up. She states that she is doing slightly better but is still having some back pain at this time. I have reviewed and reconciled the history and medication list with the patient today. Depression: Not at risk (09/29/2023) PHQ-2 PHQ-2 Score: 0 reports that she has never smoked. She has never used smokeless tobacco. She reports current alcohol use. She reports that she does not use drugs. OBJECTIVE: 04/21/2023 11:24 AM 08/25/2023 1:11 PM 09/29/2023 10:38 AM 09/29/2023 10:43 AM 10/18/2023 10:53 AM 10/27/2023 4:00 PM 11/02/2023 10:42 AM Vitals BMI 28.7 kg/m2 28.7 kg/m2 29.05 kg/m2 29.05 kg/m2 28.34 kg/m2 27.81 kg/m2 28.34 kg/m2 BSA (m2) 1.81 m2 1.81 m2 1.82 m2 1.82 m2 1.8 m2 1.78 m2 1.8 m2 Systolic 130 138 138 138 132 138 128 Diastolic 70 76 72 72 78 76 76 Heart Rate 99 76 76 100 102 85 SpO2 99 % 95 % 95 % 98 % 98 % 98 % Temp 97.7 F 97.2 F 97.2 F 97.8 F 95.9 F 98 F Resp 18 Height (in) 5' 3 5' 3 5' 3 5' 3 Weight (lb) 162 162 164 164 160 157 160 Visit Report Report Report Report Report Report Report Report Report Report Physical Exam Constitutional: General: She is not in acute distress. Appearance: She is not ill-appearing or toxic-appearing. HENT: Head: Normocephalic. Eyes: Conjunctiva/sclera: Conjunctivae normal. Pulmonary: Effort: Pulmonary effort is normal. No respiratory distress. Breath sounds: No stridor. Abdominal: General: Abdomen is flat. Tenderness: There is no abdominal tenderness. Musculoskeletal: General: No swelling or signs of injury. Normal range of motion. Cervical back: Normal range of motion. Skin: General: Skin is warm and dry. Neurological: General: No focal deficit present. Mental Status: She is alert. Mental status is at baseline. Psychiatric: Mood and Affect: Mood normal. Behavior: Behavior normal. Thought Content: Thought content normal. Judgment: Judgment normal. Recent Results (from the past 672 hour(s)) URINALYSIS ANALYZER TEST Collection Time: 10/18/23 11:48 AM Result Value Ref Range LEUKOCYTES 1+ NITRITES neg UROBILINOGEN 0.2 mg/dl PROTEIN neg PH 6.0 BLOOD neg SPECIFIC GRAVITY 1.020 KETONES neg BILIRUBIN neg GLUCOSE neg URINARY TRACT INFECTION (HTRX) Collection Time: 10/18/23 11:57 AM Result Value Ref Range ACINETOBACTER BAUMANII 0.000 19.961 - 24.689 ppm ACINETOBACTER BAUMANII Not Detected 19.961 - 24.689 ppm CITROBACTER FREUNDII 0.000 23.000 - 31.881 ppm CITROBACTER FREUNDII Not Detected 23.000 - 31.881 ppm ENTEROBACTER AEROGENES, CLOACAE 0.000 23.000 - 31.535 ppm ENTEROBACTER AEROGENES, CLOACAE Not Detected 23.000 - 31.535 ppm ENTEROCOCCUS FAECALIS, FAECIUM 0.000 26.000 - 31.575 ppm ENTEROCOCCUS FAECALIS, FAECIUM Not Detected 26.000 - 31.575 ppm ESCHERICHIA COLI 0.000 23.000 - 28.500 ppm ESCHERICHIA COLI Not Detected 23.000 - 28.500 ppm KLEBSIELLA PNEUMONIAE, OXYTOCA 0.000 23.000 - 30.500 ppm KLEBSIELLA PNEUMONIAE, OXYTOCA Not Detected 23.000 - 30.500 ppm MORGANELLA MORGANII 0.000 19.961 - 24.689 ppm MORGANELLA MORGANII Not Detected 19.961 - 24.689 ppm PROTEUS MIRABILIS, VULGARIS 0.000 23.000 - 28.500 ppm PROTEUS MIRABILIS, VULGARIS Not Detected 23.000 - 28.500 ppm PSEUDOMONAS AERUGINOSA 0.000 23.000 - 28.500 ppm PSEUDOMONAS AERUGINOSA Not Detected 23.000 - 28.500 ppm STAPHYLOCOCCUS AUREUS 0.000 26.000 - 30.902 ppm STAPHYLOCOCCUS AUREUS Not Detected 26.000 - 30.902 ppm STREPTOCOCCUS AGALACTIAE (GROUP B STREP) 0.000 26.000 - 32.222 ppm STREPTOCOCCUS AGALACTIAE (GROUP B STREP) Not Detected 26.000 - 32.222 ppm NATHALIE ALBICANS, PARAPSILOSIS, TROPICALIS 0.000 19.961 - 30.770 ppm NATHALIE ALBICANS, PARAPSILOSIS, TROPICALIS Not Detected 19.961 - 30.770 ppm NATHALIE GLABRATA 0.000 23.000 - 32.138 ppm NATHALIE GLABRATA Not Detected 23.000 - 32.138 ppm NATHALIE KRUSEI 0.000 23.000 - 32.271 ppm NATHALIE KRUSEI Not Detected 23.000 - 32.271 ppm SERRATIA MARCESCENS 0.000 23.000 - 31.204 ppm SERRATIA MARCESCENS Not Detected 23.000 - 31.204 ppm STREPTOCOCCUS PYOGENES (GROUP A STREP) 0.000 19.961 - 24.689 ppm STREPTOCOCCUS PYOGENES (GROUP A STREP) Not Detected 19.961 - 24.689 ppm STAPHYLOCOCCUS EPIDERMIDIS, HAEMOLYTICUS, LUGDUNENSIS, SAPROPHYTICUS (URINA 0.000 19.961 - 24.689 ppm STAPHYLOCOCCUS EPIDERMIDIS, HAEMOLYTICUS, LUGDUNENSIS, SAPROPHYTICUS (URINA Not Detected 19.961 - 24.689 ppm STAPHYLOCOCCUS EPIDERMIDIS, HAEMOLYTICUS, LUGDUNENSIS, SAPROPHYTICUS (URINA 0.000 19.961 - 24.689 ppm STAPHYLOCOCCUS EPIDERMIDIS, HAEMOLYTICUS, LUGDUNENSIS, SAPROPHYTICUS (URINA Not Detected 19.961 - 24.689 ppm URINALYSIS ANALYZER TEST Collection Time: 10/27/23 4:28 PM Result Value Ref Range LEUKOCYTES Positive NITRITES Neg UROBILINOGEN 0.2 PROTEIN 15mg PH 6.0 BLOOD Neg SPECIFIC GRAVITY 1.015 KETONES Neg BILIRUBIN Neg GLUCOSE Neg URINE CULTURE, ROUTINE Collection Time: 10/27/23 5:55 PM Result Value Ref Range URINE CULTURE, ROUTINE Urine Culture, Routine URINE CULTURE, ROUTINE Mixed urogenital nola URINE CULTURE, ROUTINE Less than 10,000 colonies/mL URINE CULTURE, ROUTINE Performed at: [facility] URINE CULTURE, ROUTINE [address] [place], [place] [id number] URINE CULTURE, ROUTINE Fixed Assets Accountant: Kev Choi PhD, Phone: [phone] C. DIFFICILE PCR Collection Time: 11/01/23 7:00 PM Result Value Ref Range C. DIFFICILE PCR NEGATIVE NEGATIVE SALMONELLA/SHIGELLA SCREEN Collection Time: 11/01/23 7:00 PM Result Value Ref Range SALMONELLA/SHIGELLA SCREEN Salmonella/Shigella Screen SALMONELLA/SHIGELLA SCREEN No Salmonella or Shigella recovered. E COLI SHIGA TOXIN EIA Collection Time: 11/01/23 7:00 PM Result Value Ref Range E COLI SHIGA TOXIN EIA E coli Shiga Toxin EIA WILL FOLLOW E COLI SHIGA TOXIN EIA Negative E COLI SHIGA TOXIN EIA Performed at: [facility] E COLI SHIGA TOXIN EIA [address] [place], [place] [id number] E COLI SHIGA TOXIN EIA Fixed Assets Accountant: eKv Choi PhD, Phone: [phone] ASSESSMENT AND PLAN: Assessment/Plan Diagnoses and all orders for this visit: Acute cystitis without hematuria - Urinalysis with microscopic; Future - Urine culture (clean catch); Future Could not provide repeat urine today Order given with specimen cup 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, multiple sites Contusion, knee and lower leg, unspecified laterality, initial encounter Elevated C-reactive protein (CRP) Encounter for long-term (current) use of medications Estrogen receptor positive neoplasm Facet syndrome Family history of lupus erythematosus Fatigue Foot deformity, bilateral Fuchs' corneal dystrophy of left eye Gout Hammer toes, bilateral History of breast cancer History of kidney stones Inflammatory arthritis Long-term use of Plaquenil Lower leg edema Mild intermittent asthma without complication (CMS/HCC) Hip pain, bilateral Osteopenia of multiple sites Pain in toe of right foot PCO (posterior capsular opacification), bilateral Postlaminectomy syndrome, lumbar region Primary osteoarthritis of both knees Pseudogout involving multiple joints Pseudophakia Secondary osteoarthritis of multiple sites Status post bilateral knee replacements Vitamin D deficiency Overweight (BMI 25.0-29.9) SVT (supraventricular tachycardia) (CMS/HCC) Vertigo Past Medical History: Diagnosis Date Appendicitis Arthritis Asthma (CMS/HCC) Bronchitis Cataract Chicken pox Goiter (CMS/HCC) Gout History of back surgery History of breast biopsy left breast, benign History of colonoscopy 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 Hypothyroid (CMS/HCC) Kidney stone removed Measles Microcalcification of right breast on mammogram 09/29/2023 Migraine (CMS/HCC) Mumps Pneumonia S/P knee replacement right partial Shingles documented in this encounterLiberty [id number] History of Present illness Narrative* CRISSY Caballero - 10/27/2023 3:55 PM EDT HPI: Historian of HPI: patient Fantasma Lewis is a 83 y.o. female who presents today to the Urgent Care with the following complaints and denials which have been present for 3 day(s). Pt is feeling lightheaded as well. Pt has had this going on for awhile but its off and on. Pt does see Dr. Morrissey but could not get through to them. He advised her to not take imodium and then at the next appt advised her she could so she is notsure what to do. Denies fever, myalgias but admits chills, no appetite, abd pain in the epigastriumand lower abdomen. Reports nausea and vomiting yesterday and diarrhea. Unsure if she ate something that caused symptoms. Denies dysuria, urinary frequency or urgency. C/O Denies Symptom Comments [x] [] Abd Pain Location: lower abd and not all the time [x] [] Nausea [x] [] Vomiting Bile and food [] [x] Loss of appetite [] [x] Fever [] [x] Chills [] [x] Radiation of pain [x] [] OTC Medication use immodium [] [x] PMHx of Abd issues Additional Comments: pt has not taken any OTC medications Allergies Allergen Reactions Hydroxychloroquine Other Reaction(s): Other: See Comments Eye changes on exam 06/2020 (unable to clarify if changes from macular degeneration) Current Outpatient Medications Medication Instructions albuterol HFA 90 mcg/act inhaler anastrozole (Arimidex) 1 MG chemo tablet chlorthalidone (HYGROTON) 25 mg, Oral, Daily cholecalciferol (VITAMIN D-3) 2,000 Units, Oral, Daily DULoxetine (Cymbalta) [address] capsule Elderberry-Vitamin C-Zinc (AutoBike GUMVisualmarks PO) Oral levothyroxine (SYNTHROID) 75 mcg, Oral, Daily before breakfast losartan (COZAAR) 100 mg, Oral, Daily meloxicam (Mobic) 15 MG tablet Multiple Vitamins-Minerals (EYE VITAMINS PO) Oral omeprazole (PriLOSEC) [address] capsule prednisoLONE acetate (Pred-Forte) 1 % ophthalmic suspension PLACE 1 DROP INTO BOTH EYES EVERY OTHERDAY Prolia 60 mg, Subcutaneous, Once Visit Vitals BP 138/76 Pulse 102 Temp 95.9 F Wt 157 lb SpO2 98% BMI 27.81 kg/m Smoking Status Never BSA 1.78 m ROS: A complete system ROS was performed and negative aside from the pertinent positives noted in the HPI and PE. Physical Exam General Examination: alert, oriented, normal affect, well-appearing, in no acute distress, well developed, well nourished. Head: normocephalic, atraumatic Eyes: sclera non-icteric Oral Cavity: no lesions, mucosa moist Throat: clear, symmetrical rise of soft palate and uvula, no erythema or exudate Heart: mildly tachy rate and regular rhythm, S1, S2 normal Lungs: clear to auscultation bilaterally. No wheezes, rales, rhonchi. Abd: soft, ttp epigastrium and LLQ, no guarding or rigidity, neg rebound tenderness Extremities: no edema, no cyanosis Psych: alert, oriented, cognitive function intact, cooperative with exam. Assessment/Plan 1. Generalized abdominal pain Discussed ddx, given abdominal pain, nausea and vomiting, diarrhea, lightheadedness, mildly tachy, I feel she should be evaluated and treated in the ER. Patient voiced understanding and agreement with this and left UC to go to ER. Offered to call ride and pt stated she would drive herself. 2. Nausea and vomiting, unspecified vomiting type See above. 3. Diarrhea, unspecified type See above. 4. Flank pain See above. - URINALYSIS ANALYZER TEST - URINARY TRACT INFECTION (HTRX) documented in this encounterLiberty [id number] Telephone encounter Note* Telephone Encounter - Gisell Vizcarra - 10/19/2023 12:50 PM EDT Spoke to pt over the phone, pt verbally understood results and had no questions during time of call. Liberty [id number] Miscellaneous Notes* Telephone Encounter - Gisell Vizcarra - 10/19/2023 12:50 PM EDT Spoke to pt over the phone, pt verbally understood results and had no questions during time of call. * Telephone Encounter - Jah Sutherland NP - 10/19/2023 12:00 PM EDT Please notify patient that her urine culture is negative and she does not have a UTI. She does needan antibiotic. documented in this encounterLiberty [id number] Telephone encounter Note* Telephone Encounter - Jah Sutherland NP - 10/19/2023 12:00 PM EDT Please notify patient that her urine culture is negative and she does not have a UTI. She does needan antibiotic. [facility] [id number] History of Present illness Narrative* Jah Sutherland NP - 10/18/2023 10:50 AM EDT HPI: Historian of HPI: patient Fantasma Lewis is a 83 y.o. female who presents today to the Urgent Care with the following complaints and denials which have been present for 2 week(s) I have IBS. Wednesday I went to the [facility] and got the azo strips and it was positive. I havent felt good. Admits to vomiting x1 Hx of kidney stones many years ago Admits to pressure and urinary frequency when urinating Admits that she went to [facility] last Wednesday and they gave her keflex and zofran. They said my culture was fine. C/O Denies Symptom Comments [x] [] Dysuria [] [x] hematuria [x] [] Urinary frequency [] [x] Urinary incontinence [x] [] Urinary urgency [] [x] Genital itching [] [x] Genital discharge [] [x] Back pain [] [x] Abd pain Additional Comments: pt has not taken any OTC medications ROS: A complete system ROS was performed and negative aside from the pertinent positives noted in the HPI and PE. Visit Vitals BP 132/78 Pulse 100 Temp 97.8 F (Temporal) Resp 18 Wt 160 lb SpO2 98% BMI 28.34 kg/m Smoking Status Never BSA 1.8 m IH Testing: An In-House UA has been obtianed: Collected by clean catch REFERENCE RANGE Leukocytes: 1+ Nitrite: Negative Protein: Negative PH: 6.0 Blood: Negative Specific [place]: 1.020 Ketone: Negative Glucose: Negative Neg Neg Neg - Trace mg/dl 5.0-8.0 Neg 1.005-1.030 Neg Neg Physical Exam Vitals reviewed. Constitutional: General: She is not in acute distress. Appearance: Normal appearance. HENT: Head: Normocephalic and atraumatic. Nose: Nose normal. Mouth/Throat: Mouth: Mucous membranes are moist. Pharynx: Oropharynx is clear. Eyes: Extraocular Movements: Extraocular movements intact. Conjunctiva/sclera: Conjunctivae normal. Pupils: Pupils are equal, round, and reactive to light. Cardiovascular: Rate and Rhythm: Normal rate and regular rhythm. Pulses: Normal pulses. Heart sounds: Normal heart sounds. Pulmonary: Effort: Pulmonary effort is normal. No respiratory distress. Breath sounds: Normal breath sounds. No wheezing, rhonchi or rales. Abdominal: General: Abdomen is flat. Bowel sounds are normal. There is no distension. Palpations: Abdomen is soft. There is no mass. Tenderness: There is no abdominal tenderness. There is no right CVA tenderness, left CVA tenderness, guarding or rebound. Hernia: No hernia is present. Musculoskeletal: General: Normal range of motion. Cervical back: Normal range of motion and neck supple. Skin: General: Skin is warm and dry. Findings: No rash. Neurological: General: No focal deficit present. Mental Status: She is alert and oriented to person, place, and time. Psychiatric: Mood and Affect: Mood normal. Behavior: Behavior normal. Thought Content: Thought content normal. Judgment: Judgment normal. 1. Urinary frequency Presents today for evaluation of urinary symptoms which she reports for 2 weeks . She reports not feeling well with urinary frequency and burning. She was seen at [facility] last week and treated with Keflex. She does not feel her symptoms improved. Will treat due to urinalysis results in urgent care and patient aware it will be sent for culture. - URINALYSIS ANALYZER TEST - URINARY TRACT INFECTION (HTRX) - nitrofurantoin, macrocrystal-monohydrate, (Macrobid) 100 MG capsule; Take 1 capsule (100 mg) by mouth in the morning and 1 capsule (100 mg) before bedtime. Do all this for 7 days. Dispense: 14 capsule; Refill: 0 2. Acute cystitis without hematuria Start the above medications as directed. Will send in Macrobid as Keflex did not improve her symptoms. Recent lab working including CMP with GFR reviewed. Increase water intake, get plenty of rest. Advised patient that the urine will be sent out for culture. May need to change the antibiotic based on the culture results. Cranberry juice ok. Avoid bath tubs and hot tubs, wipe front to back, avoid fragrance soaps in that area, urinate before and after intercourse if sexually active. Discussed if patient develops any N/V, fever/chills, or symptoms dramatically increase, the patient is to go to the ER. Otherwise follow up at PCP office if no improvement in one week. - nitrofurantoin, macrocrystal-monohydrate, (Macrobid) 100 MG capsule; Take 1 capsule (100 mg) by mouth in the morning and 1 capsule (100 mg) before bedtime. Do all this for 7 days. Dispense: 14 capsule; Refill: 0 documented in this encounterLiberty [id number] Telephone encounter Note* Telephone Encounter - Chalo Menjivar MD - 10/14/2023 10:57 PM EDT Notify patient medication sent as requested Thank you. Patient's request for medication is as follows: Requested Prescriptions Pending Prescriptions Disp Refills meloxicam (MOBIC) 15 mg tablet [Pharmacy Med Name: Meloxicam 15 MG Oral Tablet] 90 tablet 3 Sig: TAKE 1 TABLET BY MOUTH DAILY WITH FOOD FOR PAIN Prescription(s) as above. Please process accordingly. Chalo Menjivar MD [facility]09-05-2024 Miscellaneous Notes* Telephone Encounter - Chalo Menjivar MD - 10/14/2023 10:57 PM EDT Notify patient medication sent as requested Thank you. Patient's request for medication is as follows: Requested Prescriptions Pending Prescriptions Disp Refills meloxicam (MOBIC) 15 mg tablet [Pharmacy Med Name: Meloxicam 15 MG Oral Tablet] 90 tablet 3 Sig: TAKE 1 TABLET BY MOUTH DAILY WITH FOOD FOR PAIN Prescription(s) as above. Please process accordingly. Chalo Menjivar MD * Telephone Encounter - Carly Butts MA - 10/14/2023 10:47 AM EDT Most recent Rheumatology visit: 03/05/2023 (with Chalo [...] 365 Days Visit Type Date Time Department [facility] 11/29/2023 12:00 PM [facility] CBC: None on file [...] Open Future (Single Instance) Lab Orders None ...........................................0 documented in this encounterT[facility] Telephone encounter Note * Telephone Encounter - Carly Butts MA - 10/14/2023 10:47 AM EDT Most recent Rheumatology visit: 03/05/2023 (with Chalo [...] 365 Days Visit Type Date Time Department [facility] 11/29/2023 12:00 PM [facility] CBC: None on file [...] Open Future (Single Instance) Lab Orders None ...........................................0 [facility]08-28-2024 History of Present illness Narrative* Irlanda Weaver MA - 10/06/2023 3:00 PM EDT Patient was in today to be fit with [employer]ia Pure C&G T 3IX hearing aids purchased using her [employer] benefit. Patient has experience with hearing aids. Patient aids were coupled to 3M receivers with 8 tulip domes. Patient felt the aids sounded good and did not want any adjustments. I did perceive some feedback but patient declined adjustments. Patient was able to insert and remove the hea ring aids with no difficulty. She was able to change the dome and filter. Patient aids were paired to her Iphone. Patient was shown the basic features of the jace and was able to stream. Patient was scheduled for a two week follow up. documented in this encounterLiberty [id number] History of Present illness Narrative* Mounika Rocio Dick, DO - 09/29/2023 10:20 AM EDT Images from the original note were not included. SUBJECTIVE: HPI: Fantasma Lewis is a 83 y.o. female who presents with chief complaint of Follow-up (Pt states thatshe feels her HTN is doing okay. Pt states that she did feel dizzy on 09/26/23 her BP 157/73 and later it was 157/80. Pt states that her BP was 140/64 and then 134/65. ) HPI Depression: Not at risk (09/29/2023) PHQ-2 PHQ-2 Score: 0 reports that she has never smoked. She has never used smokeless tobacco. She reports current alcohol use. She reports that she does not use drugs. OBJECTIVE: 01/29/2023 10:55 AM 02/18/2023 10:33 AM 03/18/2023 1:36 PM 04/21/2023 11:24 AM 08/25/2023 1:11 PM 09/29/2023 10:38 AM 09/29/2023 10:43 AM Vitals BMI 30.33 kg/m2 29.41 kg/m2 28.7 kg/m2 28.7 kg/m2 28.7 kg/m2 29.05 kg/m2 29.05 kg/m2 BSA (m2) 1.86 m2 1.83 m2 1.81 m2 1.81 m2 1.81 m2 1.82 m2 1.82 m2 Systolic 190 150 130 138 138 138 Diastolic 92 78 70 76 72 72 Heart Rate 82 79 99 76 76 SpO2 97 % 97 % 99 % 95 % 95 % Temp 96.9 F 97.5 F 97.7 F 97.2 F 97.2 F Height (in) 5' 3 5' 3 5' 3 5' 3 5' 3 5' 3 Weight (lb) 171.2 166 162 162 162 164 164 Visit Report Report Report Report Report Report Report Report Report Report Report Physical Exam Constitutional: General: She is not in acute distress. Appearance: She is not ill-appearing. HENT: Head: Normocephalic. Cardiovascular: Rate and Rhythm: Normal rate and regular rhythm. Heart sounds: No murmur heard. Pulmonary: Effort: Pulmonary effort is normal. Breath sounds: Normal breath sounds. No wheezing. Abdominal: General: Abdomen is flat. There is no distension. Tenderness: There is no abdominal tenderness. Musculoskeletal: General: No deformity. Normal range of motion. Cervical back: Normal range of motion. No tenderness. Lymphadenopathy: Cervical: No cervical adenopathy. Skin: General: Skin is warm and dry. Neurological: General: No focal deficit present. Mental Status: She is alert and oriented to person, place, and time. Psychiatric: Mood and Affect: Mood normal. Behavior: Behavior normal. Thought Content: Thought content normal. Judgment: Judgment normal. No results found for this or any previous visit (from the past 672 hour(s)). ASSESSMENT AND PLAN: Assessment/Plan Diagnoses and all orders for this visit: Polyuria - Urinalysis with microscopic (reflex culture if indicated); Future Hypertension, unspecified type (CMS/HCC) - chlorthalidone (Hygroton) 25 MG tablet; Take 1 tablet (25 mg) by mouth Daily - CBC and differential; Future - Comprehensive metabolic panel; Future - Lipid panel; Future Hypothyroidism, unspecified type (CMS/HCC) - levothyroxine (Synthroid, Levoxyl) 88 MCG tablet; Take 1 tablet (88 mcg) by mouth in the morning.Take before meals. - Tsh+free t4; Future Primary hypertension (CMS/HCC) - losartan (Cozaar) 100 MG tablet; Take 1 tablet (100 mg) by mouth Daily Supraventricular tachycardia, unspecified (CMS/HCC) Atherosclerosis of aorta (CMS/HCC) Reviewed recent labs, vital signs regarding all of her chronic conditions. All are well controlled at this time, continue management as above. We discussed specific dietary/lifestyle modifications which should be followed to continue to have such excellent control. We discussed appropriate follow up in 6 months here to maintain good control of these conditions and he understands to come back sooner if there are any concerning symptoms or complications. More frequent urination recently, will do UA to eval. 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, multiple sites Contusion, knee and lower leg, unspecified laterality, initial encounter Elevated C-reactive protein (CRP) Encounter for long-term (current) use of medications Estrogen receptor positive neoplasm Facet syndrome Family history of lupus erythematosus Fatigue Foot deformity, bilateral Fuchs' corneal dystrophy of left eye Gout Hammer toes, bilateral History of breast cancer History of kidney stones Inflammatory arthritis Long-term use of Plaquenil Lower leg edema Mild intermittent asthma without complication (CMS/HCC) Hip pain, bilateral Osteopenia of multiple sites Pain in toe of right foot PCO (posterior capsular opacification), bilateral Postlaminectomy syndrome, lumbar region Primary osteoarthritis of both knees Pseudogout involving multiple joints Pseudophakia Secondary osteoarthritis of multiple sites Status post bilateral knee replacements Vitamin D deficiency Overweight (BMI 25.0-29.9) SVT (supraventricular tachycardia) (CMS/HCC) Vertigo Past Medical History: Diagnosis Date Appendicitis Arthritis Asthma (CMS/HCC) Bronchitis Cataract Chicken pox Goiter (CMS/HCC) Gout History of back surgery History of breast biopsy left breast, benign History of colonoscopy 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 Hypothyroid (CMS/HCC) Kidney stone removed Measles Microcalcification of right breast on mammogram 09/29/2023 Migraine (CMS/HCC) Mumps Pneumonia S/P knee replacement right partial Shingles documented in this encounterLiberty [id number] NoteDate of Procedure 09/16/2023 [place] Protocol Safety Checklist Sign In: A moment [...] foreign bodies accounted for. Specimen containers correctly labeled.[facility] 09-16-2023 NoteDate of Procedure 09/16/2023 [place] Protocol Safety Checklist Sign In: A moment [...] follow up management communicated. Specimen containers correctly labeled.[facility]08-08-2024 Instructions* Patient Instructions* Brando Shields MD - 09/16/2023 11:08 AM [...] than dabbing lightly with a tissue An oxey-dke-dumudhh pain reliever (i.e. Tylenol) can be used [...] If it is after hours please call [phone] which will give instructions on how to reach the eye doctor electronic warfare linguist documented in this encounterTogus Va Medical Center08-08-2024 NoteDate of Procedure 09/16/2023. Pharmacy Scheduler Information Air Traffic Control Manager: Dena. Interpretation Right Eye Abnormal foveal contour. Findings include Drusen, RPE Irregularity, Atrophy; Negative for Intraretinal fluid, Subretinal fluid. Left Eye Abnormal foveal contour. Findings include Drusen, RPE Irregularity, Atrophy; Negative for Intraretinal fluid, Subretinal fluid. Interval Change Right Eye Stable. Left Eye Stable.[id number] History of Present illness Narrative* Brando Shields MD - 09/16/2023 10:59 AM EDT Referred by Dr. Anderson Age related macular [...] all ofits relevant components. 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 Nonexudative age-related macular degeneration, left [...] agree as per above documented in this encounterTogus [facility] Medical Center06-27-2024 NoteDate of Procedure 08/05/2023 [place] Protocol Safety Checklist Sign In: A moment [...] follow up management communicated. Specimen containers correctly labeled.[facility]06-27-2024 NoteDate of Procedure 08/05/2023 [place] Protocol Safety Checklist Sign In: A moment [...] foreign bodies accounted for. Specimen containers correctly labeled.[facility] 08-05-2023 Instructions* Patient Instructions* Brando Shields MD - 08/05/2023 9:24 AM [...] than dabbing lightly with a tissue An vdeq-dnk-viqajkm pain reliever (i.e. Tylenol) can be used [...] If it is after hours please call [phone] which will give instructions on how to reach the eye doctor electronic warfare linguist documented in this encounterTogus [facility] Medical Center06-27-2024 NoteDate of Procedure 08/05/2023. Pharmacy Scheduler Information Air Traffic Control Manager: Dena. Interpretation Right Eye Abnormal foveal contour. Findings include Drusen, RPE Irregularity, Atrophy; Negative for Intraretinal fluid, Subretinal fluid. Left Eye Abnormal foveal contour. Findings include Drusen, RPE Irregularity, Atrophy; Negative for Intraretinal fluid, Subretinal fluid. Interval Change Right Eye Stable. Left Eye Stable.[id number] History of Present illness Narrative* Brando Shields MD - 08/05/2023 9:19 AM EDT Referred by Dr. Anderson Age related macular [...] all ofits relevant components. documented in this encounterTogus [facility] Medical Center06-10-2024 Telephone encounter Note * Telephone Encounter - Carly Butts MA - 07/19/2023 8:06 AM EDT Pt was notified via . [facility]06-10-2024 Miscellaneous Notes* Telephone Encounter - Carly Nichole MA - 07/19/2023 8:06 AM EDT Pt was notified via . * Telephone Encounter - Chalo Menjivar MD - 07/17/2023 1:32 PM EDT Please Call patient if MyChart note not read to review results/released to My Chart if tests completed at [facility]: Normal vitamin D will monitor. Take over [...] esr 5, crp 0.4; documented in this encounterTogus Va Medical Center06-08-2024 Telephone encounter Note * Telephone Encounter - Chalo Menjivar MD - 07/17/2023 1:32 PM EDT Please Call patient if MyChart note not read to review results/released to My Chart if tests completed at [facility]: Normal vitamin D will monitor. Take over [...] 137;normal cbc, cmp, esr 5, crp 0.4; [facility]05-23-2024 NoteDate of Procedure 07/01/2023. Pharmacy Scheduler Information Air Traffic Control Manager: JERE. Interpretation Right Eye Abnormal foveal contour. Findings include Drusen, RPE Irregularity, Atrophy; Negative for Intraretinal fluid, Subretinal fluid. Left Eye Abnormal foveal contour. Findings include Drusen, RPE Irregularity, Atrophy; Negative for Intraretinal fluid, Subretinal fluid. Interval Change Right Eye Better. Left Eye Better.[id number] NoteDate of Procedure 07/01/2023 [place] Protocol Safety Checklist Sign In: A moment [...] foreign bodies accounted for. Specimen containers correctly labeled.[facility] 07-01-2023 NoteDate of Procedure 07/01/2023 [place] Protocol Safety Checklist Sign In: A moment [...] follow up management communicated. Specimen containers correctly labeled.[facility]05-23-2024 Instructions* Patient Instructions* Brando Shields MD - 07/01/2023 8:00 AM [...] than dabbing lightly with a tissue An hqez-uwh-xjfgqiy pain reliever (i.e. Tylenol) can be used [...] If it is after hours please call [phone] which will give instructions on how to reach the eye doctor electronic warfare linguist documented in this encounterTogus Va Medical Center05-23-2024 History of Present illness Narrative* Brando Shields MD - 07/01/2023 7:59 AM EDT Referred by Dr. Anderson Age related macular [...] all ofits relevant components. documented in this encounterTogus Va Medical Center05-15-2024 Telephone encounter Note * Telephone Encounter - Chalo Menjivar MD - 06/23/2023 9:18 AM EDT Notify patient medication sent as requested Thank you. Patient's request for medication is as follows: Requested Prescriptions Pending Prescriptions Disp Refills DULoxetine (CYMBALTA) 60 mg capsule [Pharmacy Med Name: DULoxetine HCl 60 MG Oral Capsule Delayed Release Particles] 90 capsule 3 Sig: take 1 capsule by mouth daily Prescription(s) as above. Please process accordingly. Chalo Menjivar MD [facility]05-15-2024 Miscellaneous Notes* Telephone Encounter - Chalo Menjivar MD - 06/23/2023 9:18 AM EDT Notify patient medication sent as [...] Menjivar MD * Telephone Encounter - Latesha AgueroSIMONE - 06/23/2023 8:25 AM EDT Images from the original note [...] SAHARA INJECT PROLIA 09/03/2023 1:30 PM [facility] EST [facility] 11/29/2023 12:00 PM [facility] CBC: Latest Ref Rng & Units [...] 23, 2023 8:25 AM documented in this encounterTogus [facility] Medical Center05-15-2024 Telephone encounter Note * Telephone Encounter - Latesha Aguero MA - 06/23/2023 8:25 AM EDT Images from the original note [...] SAHARA INJECT PROLIA 09/03/2023 1:30 PM [facility]ARA [facility] 11/29/2023 12:00 PM [facility] CBC: Latest Ref Rng & Units [...] Aguero MA June 23, 2023 8:25 AM [facility]04-29-2024 Telephone encounter Note* Telephone Encounter - Erick Arredondo MA - 06/07/2023 7:45 AM EDT patient has viewed the Swag Of The Month message per [employer]. [facility]04-29-2024 Miscellaneous Notes* Telephone Encounter - Erick Arredondo MA - 06/07/2023 7:45 AM EDT patient has viewed the [employer] message per [employer]. * Telephone Encounter - Chalo Menjivar MD - 06/05/2023 9:15 PM EDT Please Call patient if MyChart note not [...] esr 5, crp 0.4; documented in this encounterTogus Va Medical Center04-27-2024 Telephone encounter Note * Telephone Encounter - Chalo Menjivar MD - 06/05/2023 9:15 PM EDT Please Call patient if MyChart note not [...] 137;normal cbc, cmp, esr 5, crp 0.4; [facility]04-25-2024 NoteDate of Procedure 06/03/2023 [place] Protocol Safety Checklist Sign In: A moment [...] follow up management communicated. Specimen containers correctly labeled.[facility]04-25-2024 NoteDate of Procedure 06/03/2023 [place] Protocol Safety Checklist Sign In: A moment [...] foreign bodies accounted for. Specimen containers correctly labeled.[facility] 06-03-2023 Instructions* Patient Instructions* Brando Shields MD - 06/03/2023 10:11 AM [...] than dabbing lightly with a tissue An oxpa-itl-rykabvr pain reliever (i.e. Tylenol) can be used [...] If it is after hours please call [phone] which will give instructions on how to reach the eye doctor electronic warfare linguist documented in this encounterT[facility]04-[facility]-2024 NoteDate of Procedure 06/03/2023. Pharmacy Scheduler Information Air Traffic Control Manager: CD. Interpretation Right Eye Abnormal foveal contour. Findings include Intraretinal fluid, Drusen, RPE Irregularity, Atrophy; Negative for Subretinal fluid. Left Eye Abnormal foveal contour. Findings include Subretinal fluid, Drusen, RPE Irregularity, Atrophy; Negative for Intraretinal fluid. Interval Change Right Eye Better. Left Eye Worse.[id number] History of Present illness Narrative* Brando Shields MD - 06/03/2023 9:46 AM EDT Referred by Dr. Anderson Age related macular [...] all ofits relevant components. documented in this encounterT[facility]03-21-2024 History of Present illness Narrative* Nic Anderson MD - 04/29/2023 10:48 AM EDT Encounter Diagnosis ICD-10-CM 1. 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 Retinal edema H35.81 OCT MACULA CIRRUS OU (BOTH EYES) 4. 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 Nonexudative age-related macular degeneration, left [...] components. Nic Anderson MD documented in this encounterT[facility]11-26-2023 Miscellaneous Notes* Telephone Encounter - Paulo Jacob MD - 01/03/2023 2:45 PM EST Received page that patient had called. Spoke [...] to the ED. Provided eye clinic number [phone] or [phone]. Reminded pt they may call back at any time Patient verbalized understanding. Paulo Jacob MD documented in this encounterT[facility]10-31-2023 History of Present illness Narrative* Afshin Rocha MD - 12/08/2022 10:40 AM EDT Subjective Fantasma Lewis is a 82 y.o. [...] mg) by mouth every 6 hours if needed.,Disp: , Rfl: albuterol 90 mcg/actuation inhaler, if [...] (88 mcg) once daily in the morning. Takebefore meals., Disp: , Rfl: meloxicam (Mobic) 15 mg tablet, 1 tablet (15 mg) once daily., Disp: , Rfl: omeprazole (PriLOSEC) [address] capsule, 1 capsule (40 mg) once daily., Disp: , Rfl: verapamil ER (Veralan PM) 240 mg 24 hr capsule, Take 1 capsule (240 mg) by mouth once daily., Disp:, Rfl: Assessment/Plan 1. Vertigo After detailed questioning I do not believe her sense of dizziness is related to blood pressure. Itsounds classically vertiginous 2. SVT (supraventricular tachycardia) No recurrence on current therapy with verapamil. 3. Overweight (BMI 25.0-29.9) The merits of diet and weight loss were advocated. documented in this [facility] Work Phone: [phone] Instructions* Patient Instructions* Karime Monet CMA - 12/08/2022 10:40 AM [...] Fall Prevention Education Given [facility] Work Phone: 1(222) 213-330908-07-2023 Miscellaneous Notes* Telephone Encounter - Shanell Salinas RN - 09/14/2022 10:33 AM EDT Pt identified by name and Pt given message below Stated understanding * Telephone Encounter - Brenda Luo MA - 09/11/2022 9:53 AM EDT Left message for patient to call office regarding below. * Telephone Encounter - Chalo Menjivar MD - 09/11/2022 6:12 AM EDT Please Call patient if MyChart note not read to review results/released to My Chart if tests completed at [facility]: Bone mineral density shows osteopenia/stable. Happy to further review and discuss at follow up visit. Continue rest of treatment plan per instructions at last office visit. Thank you. [facility] 09/01/22 bmd osteopenia/stable L1-4 1.298g/cm2, tscore 2.3, zscore 5; Left fem neck 0.795g/cm2, tscore-0.5, zscore 1.8; Left total hip 0.909g/cm2, tscore-0.3, zscore1.8; Right fem nec 0.796g/cm2, tscore-0.5, zscore1.8; Right total hip 0.920g/cm2, tscore-0., zscore1.9; Left 1/3 forearm 0.606g/cm2, tscore-1.3, zscore1.9; 08/03/22 normal cbc, cmp, esr 8(8), crp 0.3 (0.9), vitamin D 41.2, vitamin b12- 1551, uric acid 3.1; --- [facility] 08/26/20 bmd osteopenia/improved spine/decreased forearm L1-4 1.348g/cm2, tscore 2.7, zscore 5.3;improved by 8.4% prior L fem neck 0.789g/cm2, tscore-0.7, zscore1.5;L total hip 0.948g/cm2, tscore0,zscore2.0;R fem neck 0.823g/cm2, tscore-0.2, zscore2.0;R total hip 0.952g/cm2, tscore0.1, zscore2.1; L 1/3 forearm 0.603g/cm2, tscore-1.4, zscore1.6;decreased -2.2% to prior imaging * Telephone Encounter - Felicia Perry LPN - 09/09/2022 3:27 PM EDT Received BMD reports from [facility]. Placed on your desk for review. documented in this encounterT[facility]07-24-2023 Miscellaneous Notes* Telephone Encounter - Augie Jacobson - 08/31/2022 1:32 PM EDT Patient has been notified. * Telephone Encounter - Nic Anderson MD - 08/31/2022 10:15 AM EDT rx sent * Telephone Encounter - Augie Jacobson - 08/26/2022 10:29 AM EDT LV: 04/14/22 FV: 10/22/22 If you want patient to continue with steroid drop she will need a refill sent [facility] [place]. Please advise. Nic Anderson MD filed at [...] follow-up 6 months mrx iop ou confocal dietary aid ou poss keratectomy OS in future once [...] components. Nic Anderson MD documented in this encounterT[facility]06-28-2023 Miscellaneous Notes* Telephone Encounter - Angelic Burkett - 08/05/2022 12:46 PM EDT Called and spoke to patient. She is aware of message below from Dr. Menjivar. Patient verbalized understanding. * Telephone Encounter - Chalo Menjivar MD - 08/05/2022 11:51 AM EDT Please Call patient if MyChart note not read to review results/released to My Chart if tests completed at [facility]: Improved/ stable labs and no inflammation. Continue same vitamin D intake with food. Happy to further review and discuss at follow up visit. Continue rest of treatment plan per instructions at last office visit. Thank you. 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 Nic Anderson MD documented in this encounterT[facility]us [facility] Center01-24-2023 Evaluation note* Encounter Date Diagnosis Assessment Notes Treatment Notes Treatment Clinical Notes 24 Wilfrid, 2023 GERD (gastroesophageal reflux disease) (ICD-10 - K21.9) [employer] Other 01-24-2023 History of Present illness Narrative* [...] components. Nic Anderson MD documented in this encounterTogus [facility] Center12-20-2022 Instructions* Patient Instructions* Nic Anderson MD - 01/27/2022 3:38 PM EST INSTRUCTIONS FOR SCHEDULING SURGERY: CONTACT DR. ANDERSON'S PROBE OPERATOR: MICKIE BALDERAS AT [phone] (9AM-5PM, WEDNESDAY-WEDNESDAY) - IF YOU RECEIVE VOICEMAIL, PLEASE LEAVE A MESSAGE AND WE WILL RETURN YOUR CALL - MY GETTERING FILAMENT MACHINE OPERATOR WILL INFORM YOU IF ANY ADDITIONAL PREOPERATIVE [...] OR QUESTIONS, CALL DR. ANDERSON'S OFFICE AT [phone] (PRESS 0 TO BYPASS THE AUTOMATED GREETING AND BE TRANSFERRED TO AN SALES SOLUTIONS REPRESENTATIVE) documented in this encounterTogus [facility] Center12-20-2022 History of Present illness Narrative* Nic Anderson [...] components. Nic Anderson MD documented in this encounterTogus [facility] Center10-19-2022 Evaluation note* Encounter Date Diagnosis Assessment Notes Treatment Notes Treatment Clinical Notes Nov, Irritable bowel syndrome with both constipation and diarrhea (ICD-10 - K58.2) HAVE IMPROVED WITH TAKING THE MEDICATION EVERYDAY ENCOURAGED IMODIUM NEEDED. Nov, GERD (gastroesophageal reflux disease) (ICD-10 - K21.9) PATIENT WILL GET BREAKTHROUGH ABOUT ONCE A WEEK. PATIENT TO CONTINUE ON THE MEDICATION AND USE TUMS NEEDED. [employer] Other 10-11-2022 Hospital Discharge instructions Patient Education [...] include: ?Spinach. ?Rhubarb. ?Beets. ?Potato chips and danish fries. ?Nuts. If you regularly take a diuretic medicine, make sure to eat at least 1 2 fruits or vegetables high in potassium each day. These include: ?Avocado. ?Banana. ?Mccormick, prune, carrot, or tomato juice. ?Baked potato. [...] Casseroles. Pizza. Lasagna. Frozen meals. Potato chips. Italian fries. Summary You can reduce your risk [...] 05/22/2011 Document Revised: 05/17/2019 Document Reviewed: 01/05/2017 [employer] Patient Education 2020 [employer] Follow Up Care 11/11/2021 13:26:18 With:EVENS AGUAYO, Noe Bailey, URL Address: [address] [address]- When:1 year Comments:W/ TRACE [facility] [id number] History of Present illness Narrative* Nic Anderson [...] components. Nic Anderson MD documented in this encounterT[facility] Center08-22-2022 Miscellaneous Notes* Telephone Encounter - Augie Jacobson - 09/29/2021 2:09 PM EDT Spoke with patient, she accepted appointment and has been scheduled. * Telephone Encounter - Nic Anderson MD - 09/29/2021 11:06 AM EDT You can offer her tomorrow at 1:45pm, thanks * Telephone Encounter - TracieStaceyFlora Kavon - 09/26/2021 1:30 PM EDT LV: 07/22/21 [...] components. Nic Anderson MD documented in this encounterTogus [facility] Center08-22-2022 Evaluation note* Encounter Date Diagnosis Assessment Notes Treatment Notes Treatment Clinical Notes Sep, Alternating constipation and diarrhea (ICD-10 - R19.8) [employer] Other 07-06-2022 Miscellaneous Notes* Telephone Encounter - Robert Crocker MD - 08/13/2021 4:08 PM EDT rx sent to [facility] Robert Crocker II, MD documented in this encounterTogus [facility] Center07-06-2022 History of Present illness Narrative* Robert Crocker MD - 08/13/2021 12:00 AM EDT [facility] [address] [place], [place] [address] CLINIC NOTE Department of Orthopaedics - Chantal Crocker II, M.D. NAME: FANTASMA LEWIS CLINIC NO.: [id number] DATE OF SERVICE: 08/13/2021 CHIEF COMPLAINT: Recheck [...] II, M.D. Date Dictated: 08/14/2021 Date Typed: [facility] 08/14/2021 JOB# [id number] documented in this encounterTogus [facility] Center06-22-2022 History of Present illness Narrative* Robert Sullivan DPM - 07/30/2021 9:12 AM EDT Images from the original note were not included. SERVICE DATE: July 30, 2021 PCP: DO Kiki Gannon Patient ID: Carolina is a 81 year old female. Patient presents today stating that her precision instrument and tool maker had examined her and recommended that she see a baby doctor with regard to fungus of her right [...] Relaxation;Reposition HPI recommended for podiatry evaluation from precision instrument and tool maker with regard to discolored, thickened toenail Review [...] AM Robert Sullivan DPM documented in this encounterTogus [facility] Center06-14-2022 History of Present illness Narrative* Nic Anderson MD - 07/22/2021 12:09 PM EDT Encounter [...] components. Nic Anderson MD documented in this encounterTogus [facility] Center05-25-2022 Miscellaneous Notes* Telephone Encounter - Maribell Butler RN - 07/02/2021 4:23 PM EDT Patient calling with physician referral: Patient referred to Podiatry Department. Patient was seen by her Roll Cutting Operator today and was advised to be seen [...] have any questions, you can call Nurse verification clerk back. documented in this encounterT[facility]04-26-2022 History of Present illness Narrative* Nic Anderson [...] components. Nic Anderson MD documented in this encounterT[facility]us [facility]04-25-2022 Miscellaneous Notes* Telephone Encounter - Magui Maravilla [...] patient. Latesha Aguero MA documented in this encounterTogus [facility] Center03-29-2022 History of Present illness Narrative* Nic Anderson [...] components. Nic Anderson MD documented in this encounterTogus [facility] Center03-22-2022 Miscellaneous Notes* Telephone Encounter - Augie Jacobson - 04/29/2021 1:36 PM EDT Patient called and hadn't received her Ciprofloxacin. Spoke with pharmacy and called it in patient will pick it up today and get her 4 drops in this evening. documented in this encounterT[facility] Center10-28-2021 Evaluation note* Encounter Date Diagnosis Assessment Notes Treatment Notes Treatment Clinical Notes Nov, Gastritis (ICD-10 - K29.70) CONTINUE OMEPRAZOLE 40 MG DAILY FOR NOW RTO 6 MONTHS Nov, Diverticulosis (ICD-10 - K57.90) [employer] Other 02-07-2017 History of Past illness Narrative* Problem Noted Date Resolved Date Carrier or suspected carrier of methicillin resistant Staphylococcus aureus 03/17/2016 06/02/2016 LETICIA positive 11/25/2011 06/02/2016 documented as of this encounter (statuses as of 05/06/2021) [facility] of Past illness Narrative* Problem Noted Date Resolved Date Carrier or suspected carrier of methicillin resistant Staphylococcus aureus 03/17/2016 06/02/2016 LETICIA positive 11/25/2011 06/02/2016 documented as of this encounter (statuses as of 05/19/2021) [facility] of [facility] illness Narrative* Problem Noted Date Resolved Date Carrier or suspected carrier of methicillin resistant Staphylococcus aureus 03/17/2016 06/02/2016 LETICIA positive 11/25/2011 06/02/2016 documented as of this encounter (statuses as of 06/02/2021) [facility] of [facility] illness Narrative* Problem Noted Date Resolved Date Carrier or suspected carrier of methicillin resistant Staphylococcus aureus 03/17/2016 06/02/2016 LETICIA positive 11/25/2011 06/02/2016 documented as of this encounter (statuses as of 06/04/2021) [facility] of [facility] illness Narrative* Problem Noted Date Resolved Date Carrier or suspected carrier of methicillin resistant Staphylococcus aureus 03/17/2016 06/02/2016 LETICIA positive 11/25/2011 06/02/2016 documented as of this encounter (statuses as of 07/02/2021) [facility] of [facility] illness Narrative* Problem Noted Date Resolved Date Carrier or suspected carrier of methicillin resistant Staphylococcus aureus 03/17/2016 06/02/2016 LETICIA positive 11/25/2011 06/02/2016 documented as of this encounter (statuses as of 07/22/2021) [facility] of [facility] illness Narrative* Problem Noted Date Resolved Date Carrier or suspected carrier of methicillin resistant Staphylococcus aureus 03/17/2016 06/02/2016 LETICIA positive 11/25/2011 06/02/2016 documented as of this encounter (statuses as of 07/30/2021) [facility] Narrative* Problem Noted Date Resolved Date Carrier or suspected carrier of methicillin resistant Staphylococcus aureus 03/17/2016 06/02/2016 LETICIA positive 11/25/2011 06/02/2016 documented as of this encounter (statuses as of 08/13/2021) [facility] of [facility] illness Narrative* Problem Noted Date Resolved Date Carrier or suspected carrier of methicillin resistant Staphylococcus aureus 03/17/2016 06/02/2016 LETICIA positive 11/25/2011 06/02/2016 documented as of this encounter (statuses as of 08/20/2021) [facility] Narrative* Problem Noted Date Resolved Date Carrier or suspected carrier of methicillin resistant Staphylococcus aureus 03/17/2016 06/02/2016 LETICIA positive 11/25/2011 06/02/2016 documented as of this encounter (statuses as of 09/29/2021) [facility] Narrative* Problem Noted Date Resolved Date Carrier or suspected carrier of methicillin resistant Staphylococcus aureus 03/17/2016 06/02/2016 LETICIA positive 11/25/2011 06/02/2016 documented as of this encounter (statuses as of 10/02/2021) [facility] Narrative* Problem Noted Date Resolved Date Carrier or suspected carrier of methicillin resistant Staphylococcus aureus 03/17/2016 06/02/2016 LETICIA positive 11/25/2011 06/02/2016 documented as of this encounter (statuses as of 01/27/2022) [facility] Narrative* Problem Noted Date Resolved Date Carrier or suspected carrier of methicillin resistant Staphylococcus aureus 03/17/2016 06/02/2016 LETICIA positive 11/25/2011 06/02/2016 documented as of this encounter (statuses as of 03/03/2022) [facility] Narrative* Problem Noted Date Resolved Date Carrier or suspected carrier of methicillin resistant Staphylococcus aureus 03/17/2016 06/02/2016 LETICIA positive 11/25/2011 06/02/2016 documented as of this encounter (statuses as of 04/14/2022) [facility] Narrative* Problem Noted Date Resolved Date Carrier or suspected carrier of methicillin resistant Staphylococcus aureus 03/17/2016 06/02/2016 LETICIA positive 11/25/2011 06/02/2016 documented as of this encounter (statuses as of 08/05/2022) [facility] Narrative* Problem Noted Date Diagnosed Date Resolved Date Carrier or suspected carrier of methicillin resistant Staphylococcus aureus 03/17/2016 06/03/19 17 LETICIA positive 11/25/2011 06/02/2016 documented as of this encounter (statuses as of 08/31/2022) [facility] Narrative* Problem Noted Date Diagnosed Date Resolved Date Carrier or suspected carrier of methicillin resistant Staphylococcus aureus 03/17/2016 06/03/19 17 LETICIA positive 11/25/2011 06/02/2016 documented as of this encounter (statuses as of 09/14/2022) [facility] Narrative* Problem Noted Date Diagnosed Date Resolved Date Carrier or suspected carrier of methicillin resistant Staphylococcus aureus 03/17/2016 06/03/19 17 LETICIA positive 11/25/2011 06/02/2016 documented as of this encounter (statuses as of 01/03/2023) [facility] Narrative* Problem Noted Date Diagnosed Date Resolved Date Carrier or suspected carrier of methicillin resistant Staphylococcus aureus 03/17/2016 06/03/19 17 LETICIA positive 11/25/2011 06/02/2016 documented as of this encounter (statuses as of 04/29/2023) [facility] Narrative* Problem Noted Date Diagnosed Date Resolved Date Carrier or suspected carrier of methicillin resistant Staphylococcus aureus 03/17/2016 06/03/19 17 LETICIA positive 11/25/2011 06/02/2016 documented as of this encounter (statuses as of 04/30/2023) [facility] Narrative* Problem Noted Date Diagnosed Date Resolved Date Carrier or suspected carrier of methicillin resistant Staphylococcus aureus 03/17/2016 06/03/19 17 LETICIA positive 11/25/2011 06/02/2016 documented as of this encounter (statuses as of 05/10/2023) [facility] Future Appointments Appointment Date:11/20/2022 11:00:00 AM Scheduled Provider:Noe LOZA MD Location:[facility] Appointment Type:URO Office Visit [facility] Evaluation note* Diagnosis Status post corneal transplant- Primary Cornea replaced by transplant History of Descemet membrane endothelial keratoplasty (DMEK) documented in this encounter [facility] [place] [facility]* Diagnosis Secondary osteoarthritis of multiple sites Osteoarthrosis involving, or with mention of more than one site, but not specified as generalized, multiple sites Postlaminectomy syndrome, lumbar region documented in this encounter [facility] [place] [facility]* Diagnosis History of Descemet membrane endothelial keratoplasty (DMEK)- Primary Pseudophakia Lens replaced by other means Retinal edema documented in this encounter [facility] [place] [facility]* Diagnosis History of Descemet membrane endothelial keratoplasty (DMEK)- Primary Pseudophakia Lens replaced by other means documented [facility] [place] [facility]* Diagnosis Onychomycosis of right great toe- Primary [facility] [place] [facility]* Diagnosis Status post bilateral knee replacements- Primary Knee joint replacement by other means [facility] [place] [facility]* Diagnosis Status post bilateral knee replacements- Primary Knee joint replacement by other means [facility] [place] [facility]* Diagnosis Anterior capsular opacification- Primary Pseudophakia Lens replaced by other means History of Descemet membrane endothelial keratoplasty (DMEK) Intermediate stage nonexudative age-related macular degeneration of both eyes Retained lens material following cataract surgery of left eye Cataract fragments in eye following surgery [facility] [place] [facility]* Diagnosis 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 Pseudophakia Lens replaced by other means PCO (posterior capsular opacification), bilateral After-cataract, unspecified History of Descemet membrane endothelial keratoplasty (DMEK) [facility] [place] [facility]* Diagnosis 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 [facility] [place] [facility]* Diagnosis 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 History of Descemet membrane endothelial keratoplasty (DMEK) Pseudophakia Lens replaced by other means documented in this encounter [facility] noteNo [facility] Other Evaluation note* Diagnosis Vertigo- Primary Dizziness and giddiness SVT (supraventricular tachycardia) Other specified cardiac dysrhythmias Overweight (BMI 25.0-29.9) Overweight Essential hypertension Unspecified essential hypertension [facility] in [facility] Work Phone: Evaluation note* Diagnosis History of Descemet membrane endothelial keratoplasty (DMEK)- Primary 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 Retinal edema 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, left eye, intermediate dry stage documented in this encounter [facility] note* Diagnosis 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r degeneration of right eye with active choroidal neovascularization (HCC)- Primary Nonexudative age-related macular degeneration, left eye, intermediate dry stage Pseudophakia Lens replaced by other means 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 documented [facility]* Diagnosis 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)- Primary Pseudophakia Lens replaced by other means 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 Dry eye syndrome of both eyes [facility] [place] [facility]* Diagnosis Secondary osteoarthritis of multiple sites Osteoarthrosis involving, or with mention of more than one site, but not specified as generalized, multiple sites Postlaminectomy syndrome, lumbar region [facility] [place] [facility]* Diagnosis 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) [facility] [place] [facility] Diagnosis Senile osteoporosis- Primary Personal history of other drug therapy [facility] [place] [facility]* Diagnosis Onset Date Resolution Status 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 Encounter for monitoring aromatase inhibitor therapy chronic Screening for osteoporosis c hronic Microcalcification of right breast on mammogram [facility] Work Phone: Evaluation note* Diagnosis Multiple joint pain Pain in joint, multiple sites Secondary osteoarthritis of multiple sites Osteoarthrosis involving, or with mention of more than one site, but not specified as generalized, multiple sites [facility] [place] [facility] Diagnosis Status post bilateral knee replacements Knee joint replacement by other means [facility] [place] [facility] Diagnosis 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)- Primary Retinal edema [facility] [place] [facility]* Diagnosis Status post bilateral knee replacements Knee joint replacement by other means [facility] [place] [facility]* Diagnosis Pseudogout involving multiple joints- Primary Other disorder of calcium metabolism Elevated LFTs Other abnormal blood chemistry Anemia of chronic disease Anemia of other chronic disease Elevated sed rate Elevated sedimentation rate Elevated C-reactive protein (CRP) Vitamin D deficiency Unspecified vitamin D deficiency Postmenopausal osteoporosis of multiple sites Hyperuricemia Other abnormal blood chemistry Postlaminectomy syndrome, lumbar region Secondary osteoarthritis of multiple sites Osteoarthrosis involving, or with mention of more than one site, but not specified as generalized, multiple sites Personal history of other medical treatment LETICIA positive Other and unspecified nonspecific immunological findings Joint stiffness of multiple sites Stiffness of joints, not elsewhere classified, multiple sites Family history of lupus erythematosus Family history of other condition 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, multiple sites Pain in both feet Pain in limb Hip pain, bilateral Pain in joint, pelvic region and thigh Chronic pain of both knees Pain in both upper arms Personal history of other drug therapy [facility] Diagnosis Sensorineural hearing loss, bilateral- Primary documented in this encounter [facility]* Diagnosis Onset Date Resolution Status Alternating constipation and diarrhea acute Chronic GERD acute Nausea acute [facility] Work Phone: Evaluation note* Diagnosis Bronchitis- Primary Bronchitis, not specified as acute or chronic Acute cough documented in this encounter [facility]* Diagnosis 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)- Primary Pseudophakia Lens replaced by other means Dry eye syndrome of both eyes History of Descemet membrane endothelial keratoplasty (DMEK) Posterior vitreous detachment of both eyes Vitreous degeneration PCO (posterior capsular opacification), bilateral After-cataract, unspecified [facility] Diagnosis Routine general medical examination at health care facility- Primary Routine general medical examination at a health care facility documented in this encounter [facility]* Diagnosis Polyuria- Primary Hypertension, unspecified type (CMS/HCC) Hypothyroidism, unspecified type (CMS/HCC) Primary hypertension (CMS/HCC) Unspecified essential hypertension Supraventricular tachycardia, unspecified (CMS/HCC) Atherosclerosis of aorta (CMS/HCC) Atherosclerosis of aorta documented in this encounter [facility]* Diagnosis Sensorineural hearing loss, bilateral- Primary documented in this encounter [facility]* Diagnosis Acute cystitis without hematuria- Primary Urinary frequency documented in this encounter [facility]* Diagnosis Generalized abdominal pain- Primary Abdominal pain, generalized Nausea and vomiting, unspecified vomiting type Diarrhea, unspecified type Flank pain Abdominal pain, unspecified site documented in this encounter [facility] note* Diagnosis Acute cystitis without hematuria- Primary documented in this encounter [facility]* Diagnosis Greater trochanteric bursitis of right hip- Primary Pain of right upper extremity documented in this encounter [facility]* Diagnosis Acute cystitis without hematuria- Primary Dysuria [facility] Diagnosis Postmenopausal osteoporosis of multiple sites- Primary Vitamin D deficiency Unspecified vitamin D deficiency Hypocalcemia documented in this encounter [facility] note* Diagnosis Senile osteoporosis- Primary Personal history of other drug therapy documented in this encounter [facility] note* Diagnosis Multiple joint pain Pain in joint, multiple sites Secondary osteoarthritis of multiple sites Osteoarthrosis involving, or with mention of more than one site, but not specified as generalized, multiple sites Postlaminectomy syndrome, lumbar region [facility] [place] [facility]* Diagnosis Routine general medical examination at health care facility- Primary Routine general medical examination at a health care facility Mild intermittent asthma without complication (CMS/HCC) Hypertension, unspecified type (CMS/HCC) Hypothyroidism, unspecified type (CMS/HCC) Hyperlipidemia, unspecified hyperlipidemia type (CMS/HCC) [facility] Diagnosis Impingement of right shoulder- Primary Greater trochanteric bursitis of right hip [facility] Diagnosis Impingement of right shoulder- Primary Right hip pain Pain in joint, pelvic region and thigh Greater trochanteric bursitis of right hip Impingement of right shoulder Right hip pain Pain in joint, pelvic region and thigh [facility]* Diagnosis 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)- Primary documented in this encounter [facility] note* Diagnosis Pseudophakia- Primary Lens replaced by other means PCO (posterior capsular opacification), bilateral After-cataract, unspecified History of Descemet membrane endothelial keratoplasty (DMEK) 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) documented in this encounter [facility] note* Diagnosis Onset Date Resolution Status Admit Date Alternating constipation and diarrhea acute May 11, 2024 10:55am Chronic GERD acute May 11 025 10:55am Dyspepsia acute May 11 10:55am Nausea acute May 11 10:55am [facility] Work Phone: Evaluation note* Diagnosis Personal history of malignant neoplasm of breast- Primary [facility]* Diagnosis Postmenopausal osteoporosis of multiple sites- Primary Personal history of other medical treatment PCO (posterior capsular opacification), right- Primary After-cataract, unspecified [facility] [place] [facility]* Diagnosis Senile osteoporosis- Primary Personal history of other drug therapy PCO (posterior capsular opacification), right- Primary After-cataract, unspecified [facility] [place] [facility]* Diagnosis PCO (posterior capsular opacification), right- Primary After-cataract, unspecified Pseudophakia Lens replaced by other means 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) History of Descemet membrane endothelial keratoplasty (DMEK) [facility] Diagnosis Foreign body of right ear, initial encounter documented in this encounter [facility]* Diagnosis 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)- Primary Dry eye syndrome of both eyes Pseudophakia of both eyes Lens replaced by other means History of YAG laser capsulotomy of lens, right Posterior vitreous detachment of both eyes Vitreous degeneration documented in this encounter [facility] general Narrative - Reported* Type Description Date Medical History kidney stones Medical History osteoarthritis Medical History migraine headache Medical History hypertension Medical History breast cancer Surgical History laminectomy Surgical History back surgery Surgical History knee surgery right Surgical History kidney stone Surgical History appendectomy Hospitalization History see surgical hx [employer] Other [facility] general Narrative - Reported* Type Description Date Medical History kidney stones Medical History osteoarthritis Medical History migraine headache Medical History hypertension Medical History breast cancer Surgical History laminectomy Surgical History back surgery Surgical History knee surgery right Surgical History kidney stone Surgical History appendectomy 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 Hospitalization History see surgical hx [employer] Other History of Present illness Narrative* CRISSY Shipman - 09/29/2023 11:00 AM EDT Images from the original note were not included. Subjective Chief Complaint: Fantasma Lewis is an 83 y.o. female here for an annual wellness visit. I have reviewed and reconciled the history and medication list with the patient today. Current Outpatient Medications Medication Sig Dispense Refill albuterol HFA 90 mcg/act inhaler anastrozole (Arimidex) 1 MG chemo tablet chlorthalidone (Hygroton) 25 MG tablet Take 1 tablet (25 mg) by mouth in the morning. 90 tablet 3 cyanocobalamin (Vitamin B-12) 1000 MCG tablet Take 3,000 mcg by mouth in the morning. denosumab (Prolia) 60 MG/ML solution prefilled syringe Inject 60 mg under the skin 1 (one) time DULoxetine (Cymbalta) [address] capsule ergocalciferol (Vitamin D2) 1.25 MG (53291 UT) capsule TAKE 1 CAPSULE TWICE A WEEK (WED & ) WITH FOOD FOR 8 WEEKS levothyroxine (Synthroid, Levoxyl) 88 MCG tablet TAKE 1 TABLET BY MOUTH 1 HOUR BEFORE BREAKFAST ONCE DAILY 90 tablet 3 losartan (Cozaar) 100 MG tablet Take 1 tablet (100 mg) by mouth in the morning. 90 tablet 3 meloxicam (Mobic) 15 MG tablet Multiple Vitamins-Minerals (EYE VITAMINS PO) Take by mouth omeprazole (PriLOSEC) [address] capsule prednisoLONE acetate (Pred-Forte) 1 % ophthalmic suspension PLACE 1 DROP INTO BOTH EYES EVERY OTHERDAY No current facility-administered medications for this visit. Review of Systems All other systems reviewed and are negative. List of current healthcare providers: Patient Care Team: Roney Leroy DO as PCP - General (Family Medicine) Marifer Castellanos MD (Oncology) Gunner Hidalgo DO as Referring Physician (General Surgery) Chalo Menjivar MD as Referring Physician (Rheumatology) Medicare Annual Visit Over the past 2 weeks, how often have you been bothered by any of the following problems? Little interest or pleasure in doing things: Not at all Feeling down, depressed, or hopeless: Not at all Patient Health Questionnaire-2 Score: 0 Over the past 2 weeks, how often have you been bothered by any of the following problems? Trouble falling or staying asleep, or sleeping too much: Not at all Feeling tired or having little energy: Not at all Poor appetite or overeating: Not at all Feeling bad about yourself - or that you are a failure or have let yourself or your family down: Not at all Trouble concentrating on things, such as reading the newspaper or watching television: Not at all Moving or speaking so slowly that other people could have noticed? Or the opposite - being so fidgety or restless that you have been moving around a lot more than usual.: Not at all Thoughts that you would be better off or hurting yourself in some way: Not at all Patient Health Questionnaire-9 Score: 0 Boswell Fall Risk History of Falling, Immediate or Within 3 Months: No Secondary Diagnosis: No Ambulatory Aid: Crutches/cane/walker Intravenous Therapy/Heparin Lock: No Gait/Transferring: Normal/bedrest/immobile Mental Status: Oriented to own ability Boswell Fall Risk Score: 15 Health Risk Assessment Form Do you need help eating, bathing, using the toilet, dressing, or getting around your home?: No Can you prepare your own meals?: Yes Can you do your own housework without help?: Yes Can you shop for groceries or clothes without help?: Yes Do you exercise for about 20 minutes 3 or more days a week?: No How confident are you that you can control and manage most of your health problems?: Very confident Can you mange your money, credit cards and accounts, pay bills and taxes?: Yes Vision Screening: Yes, 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 Hearing Screening: Yes, uses hearing aids Cognitive Screening Three Word Registration: Village, Kitchen, Baby Clock Drawing: Normal Clock - 2 Three Word Recall: All 3 words correct - 3 Total Score (0-5 Points): 5 Pain Assessment Pain Score: 3 Advance Care Planning Do you have a living will?: Yes Do you have a medical power of sanding machine operator or tender?: Yes Who is your medical power of sanding machine operator or tender?: alicia Crowder Daughter Objective BP 138/72 Pulse 76 Temp 97.2 F Ht 5' 3 Wt 164 lb SpO2 95% BMI 29.05 kg/m Physical Exam Constitutional: General: She is not in acute distress. Appearance: Normal appearance. HENT: Head: Normocephalic and atraumatic. Mouth/Throat: Mouth: Mucous membranes are moist. Eyes: Extraocular Movements: Extraocular movements intact. Neck: Vascular: No carotid bruit. Cardiovascular: Rate and Rhythm: Normal rate and regular rhythm. Pulses: Normal pulses. Heart sounds: No murmur heard. No friction rub. No gallop. Pulmonary: Effort: No respiratory distress. Breath sounds: Normal breath sounds. No wheezing, rhonchi or rales. Abdominal: General: Bowel sounds are normal. There is no distension. Palpations: Abdomen is soft. Tenderness: There is no abdominal tenderness. Musculoskeletal: Right lower leg: No edema. Left lower leg: No edema. Skin: General: Skin is warm and dry. Findings: No rash. Neurological: General: No focal deficit present. Mental Status: She is alert and oriented to person, place, and time. Psychiatric: Mood and Affect: Mood normal. Behavior: Behavior normal. Judgment: Judgment normal. Assessment/Plan The following health maintenance schedule was reviewed with the patient and provided in printed form in the after visit summary: Health Maintenance Topic Date Due Influenza Vaccine (1) 10/10/2023 Medicare Annual Wellness (AWV) 01/30/2024 Pneumococcal Vaccine: 65+ Years Completed Patient Active Problem List Diagnosis Asthma (CMS/HCC) Calculus of tonsil Change in bowel habits Chronic GERD Chronic sinusitis Frontal sinusitis Diverticula of colon Ductal carcinoma in situ (DCIS) of right breast Dysgeusia Hyperlipidemia (CMS/HCC) Hypertension (CMS/HCC) Hypothyroidism (CMS/HCC) Impairment of balance Irritable bowel syndrome with diarrhea Kidney stone on right side Lumbago Lymphedema of breast Osteoarthritis of knee Postmenopausal atrophic vaginitis Rectocele Uterine prolapse 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 Bursitis of hip, right Carcinoma in situ of breast 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, multiple sites Contusion, knee and lower leg, unspecified laterality, initial encounter Elevated C-reactive protein (CRP) Encounter for long-term (current) use of medications Estrogen receptor positive neoplasm Facet syndrome Family history of lupus erythematosus Fatigue Foot deformity, bilateral Fuchs' corneal dystrophy of left eye Gout Hammer toes, bilateral History of breast cancer History of kidney stones Inflammatory arthritis Joint stiffness of multiple sites Long-term use of Plaquenil Lower leg edema Mild intermittent asthma without complication (CMS/HCC) Hip pain, bilateral Osteopenia of multiple sites Pain in toe of right foot PCO (posterior capsular opacification), bilateral Postlaminectomy syndrome, lumbar region Pre-operative examination Primary osteoarthritis of both knees Pseudogout involving multiple joints Pseudophakia Secondary osteoarthritis of multiple sites Status post bilateral knee replacements Vitamin D deficiency Overweight (BMI 25.0-29.9) SVT (supraventricular tachycardia) (CMS/HCC) Vertigo Continue with care team regarding the diagnoses above: Patient here for annual Medicare Wellness visit. Demographics were updated. Self-assessment was completed. Past medical, family and social history were updated. The medication list, including supplements being taken, was updated. A list of other current medical providers was established/updated. Time was spent discussing health maintenance issues, ordering proper testing, and schedule was provided regarding recommended screening. We discussed safety issues and fall risk. Depression screening was completed and addressed. Cognitive function was assessed by direct observation and assessment of ability to perform ADL's and IADL's was done. We also discussed Advanced Directives and code status. The current BMI was provided along with an education packet regarding healthy living and maintenanceof a healthy weight. The BMI will continue to be monitored at routine office visits as well. Major risk factors for chronic disease including family history were discussed. [facility] * Carolyne Kline NP - 03/15/2024 4:00 PM EST Images from the original note were not included. Subjective : Chief Complaint: Fantasma Lewis is an 84 y.o. female here for an annual wellness visit. I have reviewed and reconciled the history and medication list with the patient today. Current Outpatient Medications Medication Sig Dispense Refill albuterol HFA 90 mcg/act inhaler chlorthalidone (Hygroton) 25 MG tablet Take 1 tablet (25 mg) by mouth Daily 90 tablet 3 cholecalciferol (Vitamin D-3) 50 MCG (2000 UT) capsule Take 2,000 Units by mouth Daily denosumab (Prolia) 60 MG/ML solution prefilled syringe Inject 60 mg under the skin 1 (one) time dicyclomine (Bentyl) 20 MG tablet TAKE 1 TABLET BY MOUTH 3 TIMES A DAY FOR 30 DAYS DULoxetine (Cymbalta) [address] capsule Elderberry-Vitamin C-Zinc ([employer] GUMMY PO) Take by mouth levothyroxine (Synthroid, Levoxyl) 88 MCG tablet TAKE 1 TABLET BY MOUTH ONCE EVERY MORNING BEFORE MEAL losartan (Cozaar) 100 MG tablet Take 1 tablet (100 mg) by mouth Daily 90 tablet 3 meloxicam (Mobic) 15 MG tablet Multiple Vitamins-Minerals (EYE VITAMINS PO) Take by mouth omeprazole (PriLOSEC) [address] capsule No current facility-administered medications for this visit. Review of Systems All other systems reviewed and are negative. List of current healthcare providers: Patient Care Team: Mounika Dick DO as PCP - General (Family Medicine) Marifer Castellanos MD (Oncology) Gunner Hidalgo DO as Referring Physician (General Surgery) Chalo Menjivar MD as Referring Physician (Rheumatology) Meir Morrissey MD as Referring Physician (Gastroenterology) Medicare Annual Visit Over the past 2 weeks, how often have you been bothered by any of the following problems? Little interest or pleasure in doing things: Not at all Feeling down, depressed, or hopeless: Not at all Patient Health Questionnaire-2 Score: 0 Over the past 2 weeks, how often have you been bothered by any of the following problems? Trouble falling or staying asleep, or sleeping too much: Not at all Feeling tired or having little energy: Not at all Poor appetite or overeating: Not at all Feeling bad about yourself - or that you are a failure or have let yourself or your family down: Not at all Trouble concentrating on things, such as reading the newspaper or watching television: Not at all Moving or speaking so slowly that other people could have noticed? Or the opposite - being so fidgety or restless that you have been moving around a lot more than usual.: Not at all Thoughts that you would be better off or hurting yourself in some way: Not at all Patient Health Questionnaire-9 Score: 0 Boswell Fall Risk History of Falling, Immediate or Within 3 Months: No Secondary Diagnosis: No Ambulatory Aid: Crutches/cane/walker Intravenous Therapy/Heparin Lock: No Gait/Transferring: Normal/bedrest/immobile Mental Status: Oriented to own ability Boswell Fall Risk Score: 15 Health Risk Assessment Form Do you need help eating, bathing, using the toilet, dressing, or getting around your home?: No Can you prepare your own meals?: Yes Can you do your own housework without help?: Yes Can you shop for groceries or clothes without help?: Yes Do you exercise for about 20 minutes 3 or more days a week?: No How confident are you that you can control and manage most of your health problems?: Very confident Can you mange your money, credit cards and accounts, pay bills and taxes?: Yes Vision Screening: Yes, 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 Hearing Screening: Yes, uses hearing aids Cognitive Screening Self Assessment: No overt cognitive deficiency is apparent by direct observation Three Word Registration: Village, Kitchen, Baby Clock Drawing: Normal Clock - 2 Three Word Recall: All 3 words correct - 3 Total Score (0-5 Points): 5 Pain Assessment Pain Score: 5 - Moderate pain Advance Care Planning Do you have a living will?: Yes Do you have a medical power of sanding machine operator or tender?: Yes Who is your medical power of sanding machine operator or tender?: Alicia Ryder Objective : BP 126/72 Pulse 90 Temp 98 F Ht 5' 3 Wt 170 lb SpO2 99% BMI 30.11 kg/m No results found. Physical Exam Constitutional: Appearance: Normal appearance. HENT: Head: Normocephalic and atraumatic. Right Ear: Tympanic membrane normal. Left Ear: Tympanic membrane normal. Nose: Nose normal. Mouth/Throat: Mouth: Mucous membranes are moist. Pharynx: Oropharynx is clear. Eyes: Extraocular Movements: Extraocular movements intact. Neck: Vascular: No carotid bruit. Cardiovascular: Rate and Rhythm: Normal rate and regular rhythm. Heart sounds: Normal heart sounds. Pulmonary: Effort: Pulmonary effort is normal. Breath sounds: Normal breath sounds. No wheezing, rhonchi or rales. Musculoskeletal: Cervical back: Neck supple. Lymphadenopathy: Cervical: No cervical adenopathy. Skin: General: Skin is warm and dry. Neurological: General: No focal deficit present. Mental Status: She is alert and oriented to person, place, and time. Psychiatric: Mood and Affect: Mood normal. Behavior: Behavior normal. Judgment: Judgment normal. Assessment/Plan : The following health maintenance schedule was reviewed with the patient and provided in printed form in the after visit summary: Health Maintenance Topic Date Due Influenza Vaccine (1) 10/10/2023 Medicare Annual Wellness (AWV) 09/28/2024 Pneumococcal Vaccine: 65+ Years Completed Advance Care Planning Has LW and POA Diagnoses and all orders for this visit: Routine general medical examination at health care facility (Primary) Mild intermittent asthma without complication (CMS/HCC) Hypertension, unspecified type (CMS/HCC) Hypothyroidism, unspecified type ([facility]) Hyperlipidemia, unspecified hyperlipidemia type ([facility]) Patient here for annual Medicare Wellness visit. Demographics were updated. Self-assessment was completed. Past medical, family and social history were updated. The medication list, including supplements being taken, was updated. A list of other current medical providers was established/updated. Time was spent discussing health maintenance issues, ordering proper testing, and schedule was provided regarding recommended screening. We discussed safety issues and fall risk. Depression screening was completed and addressed. Cognitive function was assessed by direct observation and assessment of ability to perform ADL's and IADL's was done. We also discussed Advanced Directives and code status. The current BMI was provided along with an education packet regarding healthy living and maintenanceof a healthy weight. The BMI will cont to be monitored at routine office visits as well. Major riskfactors for chronic disease including family history were discussed . No orders of the defined types were placed in this encounter. Electronically signed by Carolyne Kline NP on March 15, 2024 documented in this [facility]North[facility] Centerspital [facility] Narrative No data available for this section [facility] Hospital Discharge instructions No data available for this section [facility] Progress note No data available for this section [facility] Reason for referral (narrative)* Diagnostic Procedure Only (Routine) - Closed Specialty Diagnoses / Procedures Referred By Moncho santos Referred To Contact XR IMAGING Diagnoses Status post bilateral knee replacements Procedures XR KNEE POST OP 3V AP/LAT/MERCHANT BILATERAL RADIOLOGIC EXAMINATION KNEE 3 VIEWS Robert Crocker MD [address] [place] [address] Xr Imaging Referral ID Status Reason Start Date Expiration Date V isits Requested Visits Authorized [id number] Closed Auto-Generate d Referral 08/12/2021 09/11/2022 1 1 [facility] for referral (narrative)* Consultation (Routine) - Authorized Specialty Diagnoses / Procedures Referred By Contac t Referred To Contact Cardiology Diagnoses SVT (supraventricular tachycardia) Procedures Follow Up In Cardiology Afshin Rocha MD [address] [place] [address] 2, [address] [address] Afshin Rocha MD [address] [place] [address] 2, [address] [address] Referral ID Status Reason Start Date Expiration Date V isits Requested Visits Authorized [id number] Authorized 12/08/2022 12/08/2023 1 1 * Cardiovascular (Routine) - Pending Review Specialty Diagnoses / Procedures Referred By Contac t Referred To Contact Diagnoses SVT (supraventricular tachycardia) Procedures ECG 12 Lead Afshin Rocha MD [address] [place] [address] 2, [address] [address] Referral ID Status Reason Start Date Expiration Date V isits Requested Visits Authorized [id number] Pending Review 12/08/2022 12/08/2023 1 1 [facility] Work Phone: [facility] for referral (narrative)* Diagnostic Procedure Only (Routine) - Closed Specialty Diagnoses / Procedures Referred By Contac t Referred To Contact XR IMAGING Diagnoses Status post bilateral knee replacements Procedures XR KNEE POST OP 3V AP/LAT/MERCHANT BILATERAL RADIOLOGIC EXAMINATION KNEE 3 VIEWS Robert Crocker MD [address] [place] [address] [place] [address] Referral ID Status Reason Start Date Expiration Date V isits Requested Visits Authorized [id number] Closed Auto-Generate d Referral 08/12/2021 09/11/2022 1 1 [facility] for referral (narrative)* Diagnostic Procedure Only (Routine) - New Request Specialty Diagnoses / Procedures Referred By Contac t Referred To Contact XR IMAGING Diagnoses Postmenopausal osteoporosis of multiple sites Procedures DXA-AXIAL SKELETON DXA BONE DENSITY STUDY 1/> SITES AXIAL Chalo Elmore MD [address] [facility] [place] [address] [place] [address] Referral ID Status Reason Start Date Expiration Date Visits Requested Visits Authorized [id number] New Request Auto-Generat ed Referral 4 12/27/2024 1 1 * Diagnostic Procedure Only (Routine) - New Request Specialty Diagnoses / Procedures Referred By Contac t Referred To Contact XR IMAGING Diagnoses Postmenopausal osteoporosis of multiple sites Procedures DXA-FOREARM SKELETON DXA BONE DENSITY STUDY 1/>SITES APPENDICLR Chalo Elmore MD [address] [facility] [place] [address] [place] [address] Referral ID Status Reason Start Date Expiration Date Visits Requested Visits Authorized [id number] New Request Auto-Generat ed Referral 4 12/27/2024 1 1 [facility] for referral (narrative)No reason for referral information [facility] Reason for visit Narrative* Diagnostic Procedure Only (Routine) - Closed Specialty Diagnoses / Procedures Referred By Contac t Referred To Contact XR IMAGING Diagnoses Status post bilateral knee replacements Procedures XR KNEE POST OP 3V AP/LAT/MERCHANT BILATERAL RADIOLOGIC EXAMINATION KNEE 3 VIEWS Robert Crocker MD [address] [place] [address] [place] [address] Referral ID Status Reason Start Date Expiration Date V isits Requested Visits Authorized [id number] Closed Auto-Generate d Referral 08/12/2021 09/11/2022 1 1 [facility] Advance Directives No Advanced Directives Records Found Advance Directive Response Recorded Date/ Time Advance Directives No October 2:06pm Documents on File Type Date Recorded 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 Advance Directive(s) Advance Directive(s) 04/24/2021 10:29 AM Advance Directive(s) 08/27/2020 10:42 AM Advance Directive(s) 06/25/2016 7:07 AM Documents on File Type Date Recorded 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 Advance Directive(s) Advance Directive(s) 04/24/2021 [...] osteoporosis Microcalcification of right breast on mammogram Chief Complaint 1 year follow up/IBS Reason for Visit Alternating constipa tion and diarrhea Chronic GERD Nausea Chief Complaint Admit Date 3 month follow up diarrhea May 11 10:55am Reason for Visit Admit Date Alternating constipation and diarrhea Ap ril 2024 10:55am Chronic GERD May 11, 2024 10:5 5am Dyspepsia May 11, 2024 10:5 5am Nausea May 11, 2024 10:5 5am Chief Complaint Admit Date Breast Cancer June 26, 2024 10:07 am 3m f/u ibs/gerd August 14, 2024 9:38a m Reason for Visit Admit Date 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 June 26, 2024 10:07am Encounter for monitoring aromatase inhib itor therapy June 26, 2024 10:07am Screening for osteoporosis June 26 10:07am Microcalcification of right breast on ma mmogram June 26, 2024 10:07am Chronic GERD August 14, 2024 9:38a m Dyspepsia August 14, 2024 9:38a m Irritable bowel syndrome with both const ipation and diarrhea August 14, 2024 9:38am Nausea August 14, 2024 9:38a m Chief Complaint Admit Date 3m f/u ibs/gerd August 14, 2024 9:38a m Follow Up 1 Year September 11, 2024 1:2 8pm Breast Cancer September 11, 2024 1:2 9pm Reason for Visit Admit Date Chronic GERD August 14, 2024 9:38a m Dyspepsia August 14, 2024 9:38a m Irritable bowel syndrome with both const ipation and diarrhea August 14, 2024 9:38am Nausea August 14, 2024 9:38a m 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 September 11, 2024 1:28pm Encounter for monitoring aromatase inhib itor therapy September 11, 2024 1:28pm Screening for osteoporosis September 11, 2 025 1:28pm 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 September 11, 2024 1:29pm Encounter for monitoring aromatase inhib itor therapy September 11, 2024 1:29pm Screening for osteoporosis September 11 025 1:29pm Microcalcification of right breast on ma mmogram September 11, 2024 1:29pm Chief Complaint Admit Date 3m f/u ibs/gerd August 14, 2024 9:38a m Follow Up 1 Year September 11, 2024 1:2 8pm Breast Cancer September 11, 2024 1:2 9pm 7 wk GERD/IBS September 29, 2024 10 :44am Reason for Visit Admit Date Chronic GERD August 14, 2024 9:38a m Dyspepsia August 14, 2024 9:38a m Irritable bowel syndrome wit h both constipation and diarrhea August 14, 2024 9:38am Nausea August 14, 2024 9:38a m 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 September 11, 2024 1:28pm Encounter for monitoring aromatase inhib itor therapy September 11, 2024 1:28pm Screening for osteoporosis September 11, 025 1:28pm 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 September 11, 2024 1:29pm Encounter for monitoring aromatase inhib itor therapy September 11, 2024 1:29pm Screening for osteoporosis September 11 025 1:29pm Microcalcification of right breast on ma mmogram September 11, 2024 1:29pm Chronic GERD September 29, 2024 10 :44am Irritable bowel syndrome wit h both constipation and diarrhea September 29, 2024 10:44am Assessments Diagnosis Onset Date Resolution Status Encounter [...] or prosecute any alcohol or drug abuse patient.[facility] the event this information is protected by the Federal Confidentiality of Alcohol and Drug Abuse Patient Records regulations: The Federal rules restrict any use of the information to criminally investigate or prosecute any alcohol or drug abuse patient.[facility] CenterIn the event this information is protected by the Federal Confidentiality of Alcohol and Drug Abuse Patient Records regulations: The Federal rules restrict any use of the information to criminally investigate or prosecute any alcohol or drug abuse patient.[facility] CenterIn the event this information is protected by the Federal Confidentiality of Alcohol and Drug Abuse Patient Records regulations: The Federal rules restrict any use of the information to criminally investigate or prosecute any alcohol or drug abuse patient.[facility] CenterIn the event this information is protected by the Federal Confidentiality of Alcohol and Drug Abuse Patient Records regulations: The Federal rules restrict any use of the information to criminally investigate or prosecute any alcohol or drug abuse patient.[facility] CenterIn the event this information is protected by the Federal Confidentiality of Alcohol and Drug Abuse Patient Records regulations: The Federal rules restrict any use of the information to criminally investigate or prosecute any alcohol or drug abuse patient.[facility] CenterIn the event this information is protected by the Federal Confidentiality of Alcohol and Drug Abuse Patient Records regulations: The Federal rules restrict any use of the information to criminally investigate or prosecute any alcohol or drug abuse patient.[facility] CenterIn the event this information is protected by the Federal Confidentiality of Alcohol and Drug Abuse Patient Records regulations: The Federal rules restrict any use of the information to criminally investigate or prosecute any alcohol or drug abuse patient.[facility] CenterIn the event this information is protected by the Federal Confidentiality of Alcohol and Drug Abuse Patient Records regulations: The Federal rules restrict any use of the information to criminally investigate or prosecute any alcohol or drug abuse patient.[facility] CenterIn the event this information is protected by the Federal Confidentiality of Alcohol and Drug Abuse Patient Records regulations: The Federal rules restrict any use of the information to criminally investigate or prosecute any alcohol or drug abuse patient.[facility] CenterIn the event this information is protected by the Federal Confidentiality of Alcohol and Drug Abuse Patient Records regulations: The Federal rules restrict any use of the information to criminally investigate or prosecute any alcohol or drug abuse patient.[facility] CenterIn the event this information is protected by the Federal Confidentiality of Alcohol and Drug Abuse Patient Records regulations: The Federal rules restrict any use of the information to criminally investigate or prosecute any alcohol or drug abuse patient.[facility] CenterIn the event this information is protected by the Federal Confidentiality of Alcohol and Drug Abuse Patient Records regulations: The Federal rules restrict any use of the information to criminally investigate or prosecute any alcohol or drug abuse patient.[facility] CenterIn the event this information is protected by the Federal Confidentiality of Alcohol and Drug Abuse Patient Records regulations: The Federal rules restrict any use of the information to criminally investigate or prosecute any alcohol or drug abuse patient.[facility] CenterIn the event this information is protected by the Federal Confidentiality of Alcohol and Drug Abuse Patient Records regulations: The Federal rules restrict any use of the information to criminally investigate or prosecute any alcohol or drug abuse patient.[facility] CenterIn the event this information is protected by the Federal Confidentiality of Alcohol and Drug Abuse Patient Records regulations: The Federal rules restrict any use of the information to criminally investigate or prosecute any alcohol or drug abuse patient.[facility] CenterIn the event this information is protected by the Federal Confidentiality of Alcohol and Drug Abuse Patient Records regulations: The Federal rules restrict any use of the information to criminally investigate or prosecute any alcohol or drug abuse patient.[facility] CenterIn the event this information is protected by the Federal Confidentiality of Alcohol and Drug Abuse Patient Records regulations: The Federal rules restrict any use of the information to criminally investigate or prosecute any alcohol or drug abuse patient.[facility] CenterIn the event this information is protected by the Federal Confidentiality of Alcohol and Drug Abuse Patient Records regulations: The Federal rules restrict any use of the information to criminally investigate or prosecute any alcohol or drug abuse patient.[facility] CenterIn the event this information is protected by the Federal Confidentiality of Alcohol and Drug Abuse Patient Records regulations: The Federal rules restrict any use of the information to criminally investigate or prosecute any alcohol or drug abuse patient.[facility] CenterIn the event this information is protected by the Federal Confidentiality of Alcohol and Drug Abuse Patient Records regulations: The Federal rules restrict any use of the information to criminally investigate or prosecute any alcohol or drug abuse patient.[facility] CenterIn the event this information is protected by the Federal Confidentiality of Alcohol and Drug Abuse Patient Records regulations: The Federal rules restrict any use of the information to criminally investigate or prosecute any alcohol or drug abuse patient.[facility]In the event this information is protected by the Federal Confidentiality of Alcohol and Drug Abuse Patient Records regulations: The Federal rules restrict any use of the information to criminally investigate or prosecute any alcohol or drug abuse patient.[facility] CenterIn the event this information is protected by the Federal Confidentiality of Alcohol and Drug Abuse Patient Records regulations: The Federal rules restrict any use of the information to criminally investigate or prosecute any alcohol or drug abuse patient.[facility] CenterIn the event this information is protected by the Federal Confidentiality of Alcohol and Drug Abuse Patient Records regulations: The Federal rules restrict any use of the information to criminally investigate or prosecute any alcohol or drug abuse patient.[facility] CenterIn the event this information is protected by the Federal Confidentiality of Alcohol and Drug Abuse Patient Records regulations: The Federal rules restrict any use of the information to criminally investigate or prosecute any alcohol or drug abuse patient.[facility] CenterIn the event this information is protected by the Federal Confidentiality of Alcohol and Drug Abuse Patient Records regulations: The Federal rules restrict any use of the information to criminally investigate or prosecute any alcohol or drug abuse patient.[facility] CenterIn the event this information is protected by the Federal Confidentiality of Alcohol and Drug Abuse Patient Records regulations: The Federal rules restrict any use of the information to criminally investigate or prosecute any alcohol or drug abuse patient.[facility] CenterIn the event this information is protected by the Federal Confidentiality of Alcohol and Drug Abuse Patient Records regulations: The Federal rules restrict any use of the information to criminally investigate or prosecute any alcohol or drug abuse patient.[facility] CenterIn the event this information is protected by the Federal Confidentiality of Alcohol and Drug Abuse Patient Records regulations: The Federal rules restrict any use of the information to criminally investigate or prosecute any alcohol or drug abuse patient.[facility] CenterIn the event this information is protected by the Federal Confidentiality of Alcohol and Drug Abuse Patient Records regulations: The Federal rules restrict any use of the information to criminally investigate or prosecute any alcohol or drug abuse patient.[facility] CenterIn the event this information is protected by the Federal Confidentiality of Alcohol and Drug Abuse Patient Records regulations: The Federal rules restrict any use of the information to criminally investigate or prosecute any alcohol or drug abuse patient.[facility] CenterIn the event this information is protected by the Federal Confidentiality of Alcohol and Drug Abuse Patient Records regulations: The Federal rules restrict any use of the information to criminally investigate or prosecute any alcohol or drug abuse patient.[facility] CenterIn the event this information is protected by the Federal Confidentiality of Alcohol and Drug Abuse Patient Records regulations: The Federal rules restrict any use of the information to criminally investigate or prosecute any alcohol or drug abuse patient.[facility] CenterIn the event this information is protected by the Federal Confidentiality of Alcohol and Drug Abuse Patient Records regulations: The Federal rules restrict any use of the information to criminally investigate or prosecute any alcohol or drug abuse patient.[facility] CenterIn the event this information is protected by the Federal Confidentiality of Alcohol and Drug Abuse Patient Records regulations: The Federal rules restrict any use of the information to criminally investigate or prosecute any alcohol or drug abuse patient.[facility] CenterIn the event this information is protected by the Federal Confidentiality of Alcohol and Drug Abuse Patient Records regulations: The Federal rules restrict any use of the information to criminally investigate or prosecute any alcohol or drug abuse patient.[facility] CenterIn the event this information is protected by the Federal Confidentiality of Alcohol and Drug Abuse Patient Records regulations: The Federal rules restrict any use of the information to criminally investigate or prosecute any alcohol or drug abuse patient.[facility] CenterIn the event this information is protected by the Federal Confidentiality of Alcohol and Drug Abuse Patient Records regulations: The Federal rules restrict any use of the information to criminally investigate or prosecute any alcohol or drug abuse patient.[facility] CenterIn the event this information is protected by the Federal Confidentiality of Alcohol and Drug Abuse Patient Records regulations: The Federal rules restrict any use of the information to criminally investigate or prosecute any alcohol or drug abuse patient.[facility] CenterIn the event this information is protected by the Federal Confidentiality of Alcohol and Drug Abuse Patient Records regulations: The Federal rules restrict any use of the information to criminally investigate or prosecute any alcohol or drug abuse patient.[facility] CenterIn the event this information is protected by the Federal Confidentiality of Alcohol and Drug Abuse Patient Records regulations: The Federal rules restrict any use of the information to criminally investigate or prosecute any alcohol or drug abuse patient.[facility] CenterIn the event this information is protected by the Federal Confidentiality of Alcohol and Drug Abuse Patient Records regulations: The Federal rules restrict any use of the information to criminally investigate or prosecute any alcohol or drug abuse patient.[facility] CenterIn the event this information is protected by the Federal Confidentiality of Alcohol and Drug Abuse Patient Records regulations: The Federal rules restrict any use of the information to criminally investigate or prosecute any alcohol or drug abuse patient.[facility] CenterIn the event this information is protected by the Federal Confidentiality of Alcohol and Drug Abuse Patient Records regulations: The Federal rules restrict any use of the information to criminally investigate or prosecute any alcohol or drug abuse patient.[facility] CenterIn the event this information is protected by the Federal Confidentiality of Alcohol and Drug Abuse Patient Records regulations: The Federal rules restrict any use of the information to criminally investigate or prosecute any alcohol or drug abuse patient.[facility] CenterIn the event this information is protected by the Federal Confidentiality of Alcohol and Drug Abuse Patient Records regulations: The Federal rules restrict any use of the information to criminally investigate or prosecute any alcohol or drug abuse patient.[facility] CenterIn the event this information is protected by the Federal Confidentiality of Alcohol and Drug Abuse Patient Records regulations: The Federal rules restrict any use of the information to criminally investigate or prosecute any alcohol or drug abuse patient.[facility] Reason for Visit (unrecogniz ed section and content) Reason Comments Macular Degeneration Follow Up both neov ascular Specialty Diagnoses / Procedures Referred By Moncho t Referred To Contact Ophthalmology / OPHTHALMOLOGY Diagnoses 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r degeneration, right eye, with active choroidal neovascularization c*4 W, nvAMD, DFE/OCT, PRN AVASTIN Procedures IA BEVACIZUMAB INJECTION AVASTIN 1.25 mg every 4 weeks Brando Shields MD [address] [place] [address] Brando Shields MD [address] [place] [address] Referral ID Status Reason Start Date Expiration Date V isits Requested Visits Authorized [id number] Authorized 06/03/2023 06/02/2024 12 12 Reason Comments Macular Degeneration Follow Up Reason Comments Age related macular degeneration LEFT EY E - Neovascular Reason Comments Post-op (Ophthalmology) Left Eye Reason [...] BMD Specialty Diagnoses / Procedures Referred By [facility] Referred To Contact Diagnoses SVT (supraventricular tachycardia) Procedures ECG 12 Lead Afshin Rocha MD 703 [facility] 2, [address] [address] Referral ID Status Reason Start Date Expiration Date V isits Requested Visits Authorized [id number] Pending Review 12/08/2022 12/08/2023 1 1 Reason Comments Allied Health Visit Prolia injection Specialty Diagnoses / Procedures [facility] Referred To Contact Rheumatology / RHEUMATOLOGY Diagnoses Age-related osteoporosis without current pathological fracture Procedures DENOSUMAB INJECTION SAHARA INJECT PROLIA Chalo Menjivar MD [address] [place] [address] Nurse Lucrecia Gay[facility] [address] [place] [address] Referral ID Status Reason Start Date Expiration Date V isits Requested Visits Authorized [id number] Authorized 09/03/2023 07/27/2024 2 2 Reason Comments Follow Up Pain Ongoing generalized pain. Reason Comments Medicare Annual Wellness Visit Abel santos Patient states she is here for a medicare wellness. Reason Comments Follow-up Pt states that she f eels her HTN is doing okay. Pt states that she did feel dizzy on 09/26/23 her BP 157/73 and later it was 157/80. Pt states that her BP was 140/64 and then 134/65. 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 Specialty Diagnoses / Procedures Referred By Moncho santos Referred To Contact Ophthalmology / OPHTHALMOLOGY Diagnoses 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r degeneration, right eye, with active choroidal neovascularization c*4 W, nvAMD, DFE/OCT, PRN AVASTIN Procedures IA BEVACIZUMAB INJECTION AVASTIN 1.25 mg every 4 weeks Brando Shields MD [address] [place] [address] Phone: tel: fax: Brando Shields MD [address] [place] [address] Phone: tel: fax: Reason Comments Posterior Capsule Opacification Follow U p Pseudophakia Macular Degeneration Follow Up Reason Comments Patient Question Appointment Reason Comments 6th poy Rt. lumpectomy W/mamms Reason Comments Orders Specialty Diagnoses / Procedures Referred By Moncho santos Referred To Contact Rheumatology / RHEUMATOLOGY Diagnoses Age-related osteoporosis without current pathological fracture PROLIA Procedures DENOSUMAB INJECTION THERAPEUTIC PROPHYLACTIC/DX INJECTION SUBQ/IM SAHARA INJECT PROLIA Chalo Menjivar MD [address] [place] [address] Phone: tel: fax: Nurse [facility]cia [facility] [address] [place] [address] Phone: tel: fax: Referral ID Status Reason Start Date Expiration Date V isits Requested Visits Authorized [id number] Authorized 08/29/2024 08/29/2025 2 2 Reason Comments Posterior Capsule Opacification Evaluati on Reason Comments Exudative Macular Degeneration Follow Up Specialty Diagnoses / Procedures Referred By Contact Referred To Contact Ophthalmology / OPHTHALMOLOGY Diagnoses 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r degeneration, bilateral, with active choroidal neovascularization (HCC) Return in about 13 weeks (around 07/06/2024). Procedures IA BEVACIZUMAB INJECTION Avastin 1.25 mg both eyes every 4 wks for one year Brando Shields MD [address] [place] [address] Phone: tel:[phone] fax:[phone] Brando Shields MD [address] [place] [id number] Phone: tel:[phone] fax:[phone] Referral ID Status Reason Start Date Expiration Date V isits Requested Visits Authorized [id number] Authorized 06/29/2024 06/29/2025 12 12 Care Teams (unrecognized sec tion and content) Team Status: Active Member Role Status Dates Roney Leroy DO Primary Care Provider Active Team Status: Inactive Member Role Status Dates Roney Leroy DO Primary Care Provider Active St art: August 14, 2024 End: August 14, 2024 Sade Garcia APRN Attending Provider Active Start: August 14, 2024 End: August 14, 2024 Team Status: Inactive Member Role Status Dates Roney Leroy DO Primary Care Provider Active St art: September 11, 2024 End: September 11, 2024 ANNALISA Fenton Attending Provider Active Start: September 11, 2024 End: September 11, 2024 Team Status: Active Member Role Status Dates Roney Leroy DO Primary Care Provider Active St art: September 11, 2024 Gunner Hidalgo DO Referring Provider Active Start: September 11, 2024 Elsa Siddiqui APRN Attending Provider Acti ve Start: September 11, 2024 Team Status: Active Member Role Status Dates Roney Leroy DO Primary Care Provider Active St art: June 26, 2024 Gunner Hidalgo DO Referring Provider Active Start: June 26, 2024 Elsa Siddiqui APRN Attending Provider Acti ve Start: June 26, 2024 Team Status: Inactive Member Role Status Dates Roney Leroy DO Primary Care Provider Active St art: December 08, 2023 End: December 08, 2023 Meir Morrissey MD Attending Provider Active S tart: December 08, 2023 End: December 08, 2023 Grain Mill Worker Relationship Specialty Start Date End Date Roney Leroy, DO [address] [place] [address] PCP - General 05/19/00 Grain Mill Worker Relationship Specialty Start Date End Date Roney Leroy, DO [address] [place] [address] PCP - General 05/19/00 Grain Mill Worker Relationship Specialty Start Date End Date Roney Leroy, DO [address] [place] [address] PCP - General 05/19/00 Grain Mill Worker Relationship Specialty Start Date End Date Roney Leroy, DO [address] [place] [address] PCP - General 05/19/00 Grain Mill Worker Relationship Specialty Start Date End Date Roney Leroy, DO [address] [place] [address] PCP - General 05/19/00 Grain Mill Worker Relationship Specialty Start Date End Date Roney Leroy, DO [address] [place] [address] PCP - General 05/19/00 Grain Mill Worker Relationship Specialty Start Date End Date Roney Leroy, DO [address] [place] [address] PCP - General 05/19/00 Grain Mill Worker Relationship Specialty Start Date End Date Roney Leroy, DO [address] [place] [address] PCP - General 05/19/00 Grain Mill Worker Relationship Specialty Start Date End Date Roney Leroy, DO [address] [place] [address] PCP - General 05/19/00 Grain Mill Worker Relationship Specialty Start Date End Date Roney Leroy, DO [address] [place] [address] PCP - General 05/19/00 Grain Mill Worker Relationship Specialty Start Date End Date Roney Leroy, DO [address] [place] [address] PCP - General 05/19/00 Grain Mill Worker Relationship Specialty Start Date End Date Roney Leroy, DO [address] [place] [address] PCP - General 05/19/00 Grain Mill Worker Relationship Specialty Start Date End Date Roney Leroy DO [address] [place] [address] PCP - General 05/19/00 Grain Mill Worker Relationship Specialty Start Date End Date Roney Leroy DO [address] [place] [address] PCP - General 05/19/00 Grain Mill Worker Relationship Specialty Start Date End Date Roney Leroy, [address] [place] [address] PCP - General Family Medicine 12/08/22 Grain Mill Worker Relationship Specialty Start Date End Date Roney Leroy DO [address] [place] [address] PCP - General 05/19/00 Grain Mill Worker Relationship Specialty Start Date End Date Roney Leroy DO [address] [place] [address] PCP - General Family Medicine 08/04/22 Marifer Castellanos MD [address] [place] [address] Oncology 01/29/23 Gnuner Hidalgo DO 703 [facility] [address] [place] [address] Referring Physician General Surgery 01/29/23 Chalo Menjivar MD [address] [facility] [place] [address] Referring Physician Rheumatology 01/29/23 Grain Mill Worker Relationship Specialty Start Date End Date Roney Leroy, [address] [place] [address] PCP - General 05/19/00 Grain Mill Worker Relationship Specialty Start Date End Date Roney Leroy, [address] [place] [address] PCP - General 05/19/00 Grain Mill Worker Relationship Specialty Start Date End Date Roney Leroy, [address] [place] [address] PCP - General 05/19/00 Grain Mill Worker Relationship Specialty Start Date End Date Roney Leroy, [address] [place] [address] PCP - General 05/19/00 Grain Mill Worker Relationship Specialty Start Date End Date Roney Leroy, [address] [place] [address] PCP - General 05/19/00 Grain Mill Worker Relationship Specialty Start Date End Date Roney Leroy DO [address] [place] [address] PCP - General 05/19/00 Grain Mill Worker Relationship Specialty Start Date End Date Roney Leroy DO [address] [place] [address] PCP - General 05/19/00 Grain Mill Worker Relationship Specialty Start Date End Date Roney Leroy DO [address] [place] [address] PCP - General 05/19/00 Grain Mill Worker Relationship Specialty Start Date End Date Roney Leroy DO [address] [place] [address] PCP - General 05/19/00 Team Status: Active Member Role Status Dates Roney Leroy DO Primary Care Provider Active St art: September 08, 2023 Gunner Hidalgo DO Referring Provider Active Start: September 08, 2023 Pooja Kirby MD Active Start: Jacqueline 2023 Elsa Siddiqui APRN Attending Provider Acti ve Start: September 08, 2023 Team Status: Inactive Member Role Status Dates Roney Leroy DO Primary Care Provider Active St art: September 08, 2023 End: September 08, 2023 Elsa Siddiqui APRN Attending Provider Acti ve Start: September 08, 2023 End: September 08, 2023 Grain Mill Worker Relationship Specialty Start Date End Date Roney Leroy DO [address] [place] [address] PCP - General 05/19/00 Grain Mill Worker Relationship Specialty Start Date End Date Roney Leroy DO [address] [place] [address] PCP - General 05/19/00 Grain Mill Worker Relationship Specialty Start Date End Date Roney Leroy DO [address] [facility] [address] [place] [address] PCP - General 05/19/00 Grain Mill Worker Relationship Specialty Start Date End Date Roney Leroy DO [address] [facility] [address] [place] [address] PCP - General 05/19/00 Grain Mill Worker Relationship Specialty Start Date End Date Mounika Dick DO [address] [facility] [address] [place] [address] PCP - General Family Medicine 09/29/23 Marifer Castellanos MD [address] [place] [address] Oncology 01/29/23 Gunner Hidalgo DO [address] [address] Referring Physician General Surgery 01/29/23 Chalo Menjivar MD [address] [place] [address] Referring Physician Rheumatology 01/29/23 Grain Mill Worker Relationship Specialty Start Date End Date Mounika Dick DO [address] [facility] [place] [address] PCP - General Family Medicine 09/29/23 Marifer Castellanos MD [address] [place] [address] Oncology 01/29/23 Gunner Hidalgo, DO 703 [facility] [address] [place] [address] Referring Physician General Surgery 01/29/23 Chalo Menjivar MD [address] [address] Referring Physician Rheumatology 01/29/23 Grain Mill Worker Relationship Specialty Start Date End Date Roney Leroy, DO [address] [place] [address] PCP - General 05/19/00 Grain Mill Worker Relationship Specialty Start Date End Date Roney Leroy DO [address] [place] [address] PCP - General Family Medicine 08/04/22 Marifer Castellanos MD [address] [place] [address] Oncology 01/29/23 Gunner Hidalgo, DO 703 [facility] [address] [place] [address] Referring Physician General Surgery 01/29/23 Chalo Menjivar MD [address] [place] [place] [address] Referring Physician Rheumatology 01/29/23 Grain Mill Worker Relationship Specialty Start Date End Date Roney Leroy DO [address] [place] [address] PCP - General Family Medicine 08/04/22 Marifer Castellanos MD [address] [place] [address] Oncology 01/29/23 Gunner Hidalgo DO [address] [place] [address] [place] [address] Referring Physician General Surgery 01/29/23 Chalo Menjivar MD [address] [facility] [place] [address] Referring Physician Rheumatology 01/29/23 Grain Mill Worker Relationship Specialty Start Date End Date Mounika Dick DO [address] [facility] [address] [place] [address] PCP - General Family Medicine 09/29/23 Marifer Catsellanos MD [address] [place] [address] [place] [address] Oncology 01/29/23 Gunner Hidalgo DO [address] [address] [place] [address] Referring Physician General Surgery 01/29/23 Chalo Menjivar MD [address] [facility] [place] [address] Referring Physician Rheumatology 01/29/23 Grain Mill Worker Relationship Specialty Start Date End Date Mounika Dick DO [address] [facility] [address] [place] [address] PCP - General Family Medicine 09/29/23 Marifer Castellanos MD [facility] [place] [address] Oncology 01/29/23 Gunner Hidalgo DO 703 [facility] [address] [place] [address] Referring Physician General Surgery 01/29/23 Chalo Menjivar MD 5700 [facility] [place] [address] Referring Physician Rheumatology 01/29/23 Grain Mill Worker Relationship Specialty Start Date End Date Mounika Dick DO [address] [facility] [address] [place] [address] PCP - General Family Medicine 09/29/23 Marifer Castellanos MD [address] [place] [address] Oncology 01/29/23 Gunner Hidalgo, DO [address] [place] [address] Referring Physician General Surgery 01/29/23 Chalo Menjivar MD [address]00 [facility] [place] [address] Referring Physician Rheumatology 01/29/23 Grain Mill Worker Relationship Specialty Start Date End Date Mounika Dick DO [address] [facility] [address] [place] [address] PCP - General Family Medicine 09/29/23 Marifer Castellanos MD [address] [place] [address] Oncology 01/29/23 Gunner Hidalgo, DO 703 [facility] [address] [place] [address] Referring Physician General Surgery 01/29/23 Chalo Menjivar MD [address] [place] [address] Referring Physician Rheumatology 01/29/23 Grain Mill Worker Relationship Specialty Start Date End Date Mounika Dick DO [address] [place] [address] PCP - General Family Medicine 09/29/23 Marifer Castellanos MD [address] [place] [address] Oncology 01/29/23 Gunner Hidalgo DO 703 [facility] [address] [place] [address] Referring Physician General Surgery 01/29/23 Chalo Menjivar MD [address] [place] [address] Referring Physician Rheumatology 01/29/23 Grain Mill Worker Relationship Specialty Start Date End Date Mounika Dick DO [address] [facility] [address] [place] [address] PCP - General Family Medicine 09/29/23 Marifer Castellanos MD [address] [place] [address] Oncology 01/29/23 Gunner Hidalgo DO 703 [facility] [address] [place] [address] Referring Physician General Surgery 01/29/23 Chalo Menjivar MD [address] [place] [address] Referring Physician Rheumatology 01/29/23 Grain Mill Worker Relationship Specialty Start Date End Date Mounika Dick, DO [address] [facility] [address] [place] [address] PCP - General Family Medicine 09/29/23 Marifer Castellanos MD 701 [place] [address] Oncology 01/29/23 Gunner Hidalgo DO 703 [facility] [address] [place] [address] Referring Physician General Surgery 01/29/23 Chalo Menjivar MD [address] [place] [address] Referring Physician Rheumatology 01/29/23 Grain Mill Worker Relationship Specialty Start Date End Date Mounika Dick DO [address] [facility] [address] [place] [address] PCP - General Family Medicine 09/29/23 Marifer Castellanos MD 701 [place] [address] Oncology 01/29/23 Gunner Hidalgo DO 703 [facility] [address] [place] [address] Referring Physician General Surgery 01/29/23 Chalo Menjivar MD [address] [facility] [place] [address] Referring Physician Rheumatology 01/29/23 Grain Mill Worker Relationship Specialty Start Date End Date Mounika Dick DO [address] [place] [address] PCP - General Family Medicine 09/29/23 Marifer Castellanos MD [address] [place] [address] [place] [address] Oncology 01/29/23 Gunner Hidalgo DO 703 [facility] [address] [place] [address] Referring Physician General Surgery 01/29/23 Chalo Menjivar MD [address] [place] [address] Referring Physician Rheumatology 01/29/23 Grain Mill Worker Relationship Specialty Start Date End Date Roney Leroy, [address] [place] [address] PCP - General 05/19/00 Grain Mill Worker Relationship Specialty Start Date End Date Mounika Dick DO [address] [place] [address] PCP - General Family Medicine 09/29/23 Marifer Castellanos MD [address] [place] [address] Oncology 01/29/23 Gunner Hidalgo DO 703 [facility] [address] [place] [address] Referring Physician General Surgery 01/29/23 Chalo Menjivar MD [address] [place] [address] Referring Physician Rheumatology 01/29/23 Meir Morrissey MD 703 [facility] [address] [place] [id number] Referring Physician Gastroenterology 03/15/24 Grain Mill Worker Relationship Specialty Start Date End Date Mounika Dick DO [address] [facility] [address] [place] [address] PCP - General Family Medicine 09/29/23 Marifer Castellanos MD [address] [place] [address] Oncology 01/29/23 Gunner Hidalgo DO 703 [facility] [address] [place] [address] Referring Physician General Surgery 01/29/23 Chalo Menjivar MD [address] [place] [address] Referring Physician Rheumatology 01/29/23 Meir Morrissey MD 703 [facility] [address] [place] [id number] Referring Physician Gastroenterology 03/15/24 Grain Mill Worker Relationship Specialty Start Date End Date Roney Leroy DO [address] [facility] [address] [place] [address] PCP - General 05/19/00 Grain Mill Worker Relationship Specialty Start Date End Date Roney Leroy, [address] [facility] [address] [place] [address] PCP - General 05/19/00 Grain Mill Worker Relationship Specialty Start Date End Date Roney Leroy DO [address] [facility] [address] [place] [address] PCP - General 05/19/00 Team Status: Inactive Member Role Status Dates Roney Leroy DO Primary Care Provider Active St art: May 11, 2024 End: May 11, 2024 Sade Garcia APRN Attending Provider Active Start: May 11, 2024 End: May 11, 2024 Grain Mill Worker Relationship Specialty Start Date End Date Mounika Dick DO [address] [facility] [address] [place] [address] PCP - General Family Medicine 09/29/23 Marifer Castellanos MD [address] [place] [address] Oncology 01/29/23 Gunner Hidalgo DO 703 [facility] [address] [place] [address] Referring Physician General Surgery 01/29/23 Chalo Menjivar MD [address] [place] [address] Referring Physician Rheumatology 01/29/23 Meir Morrissey MD [address] [facility] [address] [place] [address] Referring Physician Gastroenterology 03/15/24 Grain Mill Worker Relationship Specialty Start Date End Date Mounika Dick DO [address] [place] [address] PCP - General Family Medicine 09/29/23 Marifer Castellanos MD [address] [place] [address] Oncology 01/29/23 Gunner Hidalgo DO 703 [facility] [address] [place] [address] Referring Physician General Surgery 01/29/23 Chalo Menjivar MD 57[address] [facility] [place] [address] Referring Physician Rheumatology 01/29/23 Meir Morrissey MD [address] [place] [address] Referring Physician Gastroenterology 03/15/24 Grain Mill Worker Relationship Specialty Start Date End Date Roney Leroy, [address] [place] [address] PCP - General 05/19/00 Grain Mill Worker Relationship Specialty Start Date End Date Roney Leroy DO [address] [place] [address] PCP - General 05/19/00 Grain Mill Worker Relationship Specialty Start Date End Date Roney Leroy DO [address] [place] [address] PCP - General 05/19/00 Grain Mill Worker Relationship Specialty Start Date End Date Mounika Dick DO [address] [place] [address] PCP - General Family Medicine 09/29/23 Marifer Castellanos MD [address] [place] [address] Oncology 01/29/23 Gunner Hidalgo DO 703 [facility] [address] [place] [address] Referring Physician General Surgery 01/29/23 Chalo Menjivar MD [address] [place] [address] Referring Physician Rheumatology 01/29/23 Meir Morrissey MD [address] [facility] 230 [place] [address] Referring Physician Gastroenterology 03/15/24 Team Status: Inactive Member Role Status Dates Roney Leroy DO Primary Care Provider Active St art: September 29, 2024 End: September 29, 2024 Sade Garcia APRN Attending Provider Active Start: September 29, 2024 End: September 29, 2024 Grain Mill Worker Relationship Specialty Start Date End Date Roney Leroy DO [address] [facility] [address] [place] [address] PCP - General 05/19/00 INFORMATION SOURCE (unrecogn ized section and content) DATE CREATED AUTHOR 12/05/2021 [facility] DATE CREATED AUTHOR AUTHOR'S ORGANIZ ATION 12/09/2022 [facility] DATE CREATED AUTHOR AUTHOR'S ORGANIZ ATION 04/25/2024 [facility] DATE CREATED AUTHOR AUTHOR'S ORGANIZ ATION 09/08/2024 [facility] Special[facility] EPIC DATE CREATED AUTHOR AUTHOR'S ORGANIZ ATION 09/13/2024 [facility] DATE CREATED AUTHOR AUTHOR'S BREANNE CONKLIN 10/07/2024 [facility] Goals (unrecognized section and content) Goals may [...] BE BASED ON THE PRIMARY CLINICAL RECORDS. [facility] [employer] provides no warranty or guarantee of the accuracy or completeness of information in this document.
--- OUTSIDE RECORDS SUMMARY | 2024-10-07 12:00 | XMS_ITS | Encounter Summary ---
Author Organization [facility] Address [address] [facility] [place] [address] Care Team Providers Care Director Network Development Name Role Phone Roney Leroy DO Primary Care Provider [phone] Marifer Castellanos MD Unavailable Jc Escobar DO Unavailable [phone] Baylee Leon MD Unavailable [phone] Melvin Dick DO Primary Care Provider [phone] Meir Morrissey MD Unavailable [phone] Encounter Details Date Type Department Care Team (Late st Contact Info) Description 11/11/2022 Abstract [facility] [address] [facility] [address] 230 [place] [address] Roney Leroy DO [address] [facility] [address] [place] [address] Social History Tobacco Use Types Packs/Day Years [...] How often do you attend chur or pentecostal services? More than 4 times per year 11/10/2022 Do you belong to any clubs o r organizations such as hoahaoism groups, unions, fraternal or athletic groups, or [...] Patient Health Questionnaire-2 Score 0 11/11/2022 [facility] [place] of Occupat ional Health - Occupational [...] as of this encounter Functional Status * Over the past 2 weeks, how often have you been bothered by any of the following problems? Question Answer Date of Assessment Author Little interest or pleasure in doing things Not at all 11/11/2022 1:48 PM EDT Teresita Silva MA Feeling down, depressed, or hopeless Not at all 11/11/2022 1:48 PM EDT Teresita Silva MA Patient Health Questionnaire -2 Score 0 11/11/2022 1:48 PM EDT Teresita Silva MA documented as of this encounter Plan of Treatment Upcoming Encounters Date Type Department Care Team (Late st Contact Info) Description 11/02/2024 10:00 AM EDT Office Visit [facility] [address] [facility] [place] [address] 08/30/2025 10:45 AM EDT Office Visit [facility] [address] [id number] Jc Escobar DO [address] [place] [address] documented as of this encounter Visit Diagnoses Not on filedocumented in this encounter Care Teams Director Network Development Relationship Specialty Start Date End Date Roney Leroy DO [address] [address] PCP - General Family Medicine 08/04/22 09/28/23 Melvin Dick DO [address] [address] PCP - General Family Medicine 09/29/23 Marifer Castellanos MD 701 [place] [address] Oncology 01/29/23 Jc Escobar DO [address] [address] Referring Physician General Surgery 01/29/23 Baylee Leon MD [address] [facility] [address] Referring Physician Rheumatology 01/29/23 Meir Morrissey MD [address] [address] Referring Physician Gastroenterology 03/15/24 documented as of this encounter
--- OUTSIDE RECORDS SUMMARY | 2024-10-07 12:00 | XMS_ITS | Encounter Summary ---
Author Organization [facility] Address [address] [facility] [place] [address] Care Team Providers Care Woven Wood Shade Assembler Name Role Phone Roney Leroy DO Primary Care Provider [phone] Marifer Castellanos MD Unavailable Jc Escobar DO Unavailable [phone] Baylee Leon MD Unavailable [phone] Melvin Dick DO Primary Care Provider Meir Morrissey MD Unavailable [phone] Encounter Details Date Type Department Care Team (Late st Contact Info) Description 11/13/2022 Orders Only [facility] [address] [facility] 230 [place] [address] A, Unknown Practice [address] [id number] Social History Tobacco Use Types Packs/Day Years [...] week 11/10/2022 How often do you attend [facility] or sikhism services? More than 4 times per year 11/10/2022 Do you belong to any clubs o r organizations such as anglican groups, unions, fraternal or athletic groups, or [...] Recorded Patient Health Questionnaire-2 Score 0 11/11/2022 [facility] [place] of Occupat ional Health - Occupational Stress [...] EDT Office Visit [facility] [address] [facility] [place] [address] 08/30/2025 10:45 AM EDT Office Visit [facility] [address] [facility] 150 [place] [address] Jc Escobar DO [address] [address] documented as of this encounter Procedures Procedure Name Priority Date/Time Associated Diagnosis Comments XR ABDOMEN 1 VIEW Routine 11/12/2022 8:38 AM EDT documented in this encounter Results * XR abdomen 1 view (11/12/2022 8:38 AM EDT) Anatomical Region Laterality Modality Abdomen Radiographic Samara ging us Unknown Practice A IMG XR PROCEDURES Final Resul t documented in this encounter Visit Diagnoses Not on filedocumented in this encounter Care Teams Woven Wood Shade Assembler Relationship Specialty Start Date End Date Roney Leroy DO [address] [facility] 230 [place] [address] PCP - General Family Medicine 08/04/22 09/28/23 Melvin Dick DO [address] [address] PCP - General Family Medicine 09/29/23 Marifer Castellanos MD 701 [place] [address] Oncology 01/29/23 Jc Escobar DO 7[address] [facility] 150 [place] [address] Referring Physician General Surgery 01/29/23 Baylee Leon MD 5700 [place] [address] Referring Physician Rheumatology 01/29/23 Meir Morrissey MD [address] [place] [address] Referring Physician Gastroenterology 03/15/24 documented as of this encounter
--- OUTSIDE RECORDS SUMMARY | 2024-10-07 12:00 | XMS_ITS | Encounter Summary ---
Author Organization [facility] Address [address] [facility] [place] [address] Care Team Providers Care Grain Wafer Machine Operator Name Role Phone Roney Leroy DO Primary Care Provider [phone] Marifer Castellanos MD Unavailable Jc Escobar DO Unavailable [phone] Baylee Leon MD Unavailable [phone] Melvin Dick DO Primary Care Provider [phone] Meir Morrissey MD Unavailable [phone] Encounter Details Date Type Department Care Team (Late st Contact Info) Description 10/16/2022 Abstract [facility] [address] [facility] 120 [place] [address] Sherin Parmar, HUMBERTO [address] [facility] [address] [place] [address] Social History Tobacco Use Types Packs/Day Years Used Date Smoking Tobacco: Never Smokeless Tobacco: Never Tobacco Cessation:Counseling Given: Not Answered Alcohol Use Standard Drinks/Week Comments Yes 0 (1 standard drink = 0.6 oz pur e alcohol) caffeine 1-2 cups/day Comments Unknown Sex and Gender Information Value [...] Visit [facility] [address] [facility] [address] 08/30/2025 10:45 AM EDT Office Visit [facility] [address] [place] [address] Jc Escobar DO 703 [facility] 150 [place] [address] documented as of this encounter Visit Diagnoses Not on filedocumented in this encounter Care Teams Grain Wafer Machine Operator Relationship Specialty Start Date End Date Roney Leroy DO [address] [facility] [place] [address] PCP - General Family Medicine 08/04/22 09/28/23 Melvin Dick DO [address] [facility] [address] [place] [address] PCP - General Family Medicine 09/29/23 Marifer Castellanos MD 701 [place] [address] Oncology 01/29/23 Jc Escobar DO 703 [facility] 150 [place] [address] Referring Physician General Surgery 01/29/23 Baylee Leon MD [address] [facility] [place] [address] Referring Physician Rheumatology 01/29/23 Meir Morrissey MD [address] [place] [address] Referring Physician Gastroenterology 03/15/24 documented as of this encounter
--- OUTSIDE RECORDS SUMMARY | 2024-10-07 12:00 | XMS_ITS | Encounter Summary ---
Author Organization [facility] Address [address] [place] [address] Care Team Providers Care Dispatcher Refinery Name Role Phone Roney Leroy Primary Care Provider [phone] Source Comments In the event this information is protected by the Federal Confidentiality of Alcohol and Drug AbusePatient Records regulations: The Federal rules restrict any use of the information to criminally investigate or prosecute any alcohol or drug abuse patient.[facility] Encounter Details Date Type Department Care Team (Late st Contact Info) Description 04/23/2018 Patient Msg Rheumatology [address] [facility] [address] [facility] [place] [place] [address] Baylee Leon MD [address] [facility] [place] [address] results Social History Tobacco Use Types Packs/Day Years Used Date Smoking Tobacco: Former Cigarettes Q uit: 06/21/1974 Smokeless Tobacco: Never Comments:socially only Alcohol Use Standard Drinks/Week Comments Yes 0 (1 standard drink = 0.6 oz pur e alcohol) socially Comments No Sex and Gender Information Value [...] 12:20 PM EDT Office Visit Rheumatology 5700 [place] [address] Baylee Leon MD 5700 [place] [address] for osteoporosis/osteoar thritis/pseudogout fu OV 6-12months./Last Prolia 09/04/24 12/28/2024 1:30 PM EST Office Visit [facility] 5700 [place] [address] Cristobal Shields MD [address] [place] [address] [facility] [address] [address] *12 W, DFE/OCT/OPTOS/FAF, AVASTIN OU 04/19/2025 9:15 AM EDT Office Visit [facility] [address] [address] Nic Santos MD [address] [place] [address] [facility] [address] [address] Corneal Transplant yearly documented as of this encounter Visit Diagnoses Not on filedocumented in this encounter Care Teams Dispatcher Refinery Relationship Specialty Start Date End Date Roney Leroy DO [address] [place] [address] PCP - General 05/19/00 documented as of this encounter
--- OUTSIDE RECORDS SUMMARY | 2024-10-07 12:00 | XMS_ITS | Encounter Summary ---
Author Organization [facility] Address [address] [place] [address] Care Team Providers Care Grades 7 And 8 Teacher Name Role Phone Roney Leroy DO Primary Care Provider [phone] Marifer Castellanos MD Unavailable Jc Escobar DO Unavailable [phone] Baylee Leon MD Unavailable [phone] Melvin Dick DO Primary Care Provider [phone] Meir Morrissey MD Unavailable [phone] Encounter Details Date Type Department Care Team (Late st Contact Info) Description 10/28/2022 Orders Only [facility] [address] [facility] [address] 230 [place] [address] A, Unknown Practice [address] [id number] Social History Tobacco Use Types Packs/Day Years [...] Visit [facility] [address] [facility] [place] [address] 08/30/2025 10:45 AM EDT Office Visit [facility] [address] [address] Jc Escobar DO [address] [address] documented as of this encounter Procedures Procedure Name Priority Date/Time Associated Diagnosis Comments CT ANGIO NECK W CONTRAST Routine 10/22/2022 9:15 AM EDT documented in this encounter Results * CT ANGIO NECK W CONTRAST (10/22/2022 9:15 AM EDT) Anatomical Region Laterality Modality Radiographic Samara ging us Unknown Practice A IMG XR PROCEDURES Final Resul t documented in this encounter Visit Diagnoses Not on filedocumented in this encounter Care Teams Grades 7 And 8 Teacher Relationship Specialty Start Date End Date Roney Leroy DO [address] [address] PCP - General Family Medicine 08/04/22 09/28/23 Melvin Dick DO [address] [facility] [place] [address] PCP - General Family Medicine 09/29/23 Marifer Castellanos MD 701 [place] [address] Oncology 01/29/23 Jc Escobar DO [address] [address] Referring Physician General Surgery 01/29/23 Baylee Leon MD 5700 [facility] [place] [address] Referring Physician Rheumatology 01/29/23 Meir Morrissey MD [address] [facility] 230 [place], [place] [address] Referring Physician Gastroenterology 03/15/24 documented as of this encounter
--- OUTSIDE RECORDS SUMMARY | 2024-10-07 12:00 | XMS_ITS | Encounter Summary ---
Author Organization [facility] Address [address] [facility] [place] [address] Care Team Providers Care Primary Therapist Name Role Phone Roney Leroy DO Primary Care Provider [phone] Marifer Castellanos MD Unavailable Jc Escobar DO Unavailable [phone] Baylee Leon MD Unavailable [phone] Melvin Dick DO Primary Care Provider [phone] Meir Morrissey MD Unavailable [phone] Encounter Details Date Type Department Care Team (Late st Contact Info) Description 11/11/2022 Abstract [facility] 230 [address] [facility] [address] 230 [place] [address] Roney Leroy DO [address] [facility] [address] 230 [place] [address] Social History Tobacco Use Types Packs/Day Years [...] How often do you attend chur or faith services? More than 4 times per year 11/10/2022 Do you belong to any clubs o r organizations such as pentecostal groups, unions, fraternal or athletic groups, or [...] Recorded Patient Health Questionnaire-2 Score 0 11/11/2022 [facility] [place] of Occupat ional Health - Occupational Stress [...] [facility] [address] [facility] [place] [address] 08/30/2025 10:45 AM EDT Office Visit [facility] [address] [phone] Jc Escobar DO [address]03 [address] [place] [address] documented as of this encounter Visit Diagnoses Not on filedocumented in this encounter Care Teams Primary Therapist Relationship Specialty Start Date End Date Roney Leroy DO [address] [address] PCP - General Family Medicine 08/04/22 09/28/23 Melvin Dick DO [address] [address] PCP - General Family Medicine 09/29/23 Marifer Castellanos MD 701 [place] [address] Oncology 01/29/23 Jc Escobar DO [address] [address] Referring Physician General Surgery 01/29/23 Baylee Leon MD 5700 [facility] [place] [address] Referring Physician Rheumatology 01/29/23 Meir Morrissey MD [address] [id number] Referring Physician Gastroenterology 03/15/24 documented as of this encounter
--- OUTSIDE RECORDS SUMMARY | 2024-10-07 12:00 | XMS_ITS | Clinical Summary ---
Author Organization [facility] Address [address] [place] [id number] Care Team Providers Care Network Solutions Architect Name Role Phone Roney Leroy DO Primary Care Provider [phone] Allergies Active Allergy Reactions Criticality Noted Date Comments Hydroxychloroquine Other: See Comments 06/29/19 21 Eye changes on exam 06/2020 (unable to clarify if changes from macular degeneration) Medications cholecalciferol (VITAMIN D3) 2,000 unit tablet Take 2 tablets by mouth once daily. 0 6 Active acetaminophen (TYLENOL) 500 mg tablet Take 2 tablets by mouth three times daily. 7 Active albuterol HFA (PROVENTIL HFA, VENTOLIN HFA) 90 mcg/actuation inhaler Inhale 1 Puff as instructed every 4 hours as needed for Wheezing/Short ness of Breath. Active levothyroxine (SYNTHROID) 88 mcg tablet Take 88 mcg by mouth once daily. 1 Active omeprazole (PRILOSEC) 40 mg capsule Take 40 mg by mouth once daily. 1 Active Clindamycin Phosphate 1 % APPLY TO AFFECTED AREAS TWICE DAILY FOR FLARES 2 Active chlorthalidone (HYGROTON) 25 mg tablet Take 25 mg by mouth every morning. 4 Active dicyclomine (BENTYL) 20 mg tablet TAKE 1 TABLET BY MOUTH 3 TIMES A DAY FOR 30 DAYS Active meloxicam (MOBIC) 15 mg tabletIndications: Multiple joint pain,Secondary osteoarthritis of multiple sites TAKE 1 TABLET BY MOUTH DAILY WITH FOOD FOR PAIN 90 tablet 3 5 Active DULoxetine (CYMBALTA) 60 mg capsuleIndications :Secondary osteoarthritis of multiple sites,Postlaminect indigo syndrome, lumbar region Take 1 capsule by mouth every afternoon. 90 capsule 3 5 Active prednisoLONE acetate (PRED FORTE) 1 % ophthalmic suspension USE 1 DROP IN BOTH EYES ONCE DAILY. 5 mL 3 5 Active antiox #8/om3/dha/epa/lut /zeax (PRESERVISION AREDS 2, OMEGA-3, ORAL) Take by mouth. 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 (HCC) 1 drop OU DIRECTED 10/05/2024 10/05/2024 Ended PHENYLephrine 2.5 % 1 drop (AK-DILATE, CHEY-SYNEPHRINE)Indication s: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) 1 drop OU DIRECTED 10/05/2024 10/05/2024 Ended fluorescein-benoxinate 0.3-0.4 % 1 drop (FLURESS)Indications:Exud ative age-related macular 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 (HCC) 1 drop OU DIRECTED 10/05/2024 10/05/2024 Ended proparacaine 0.5 % 1 drop (ALCAINE)Indications:Exud ative age-related macular 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 (HCC) 1 drop OU DIRECTED 10/05/2024 10/05/2024 Ended bevacizumab (Jase's) 1.25 mg intravitreal syringe (AVASTIN)Indications:Exud ative age-related macular 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 (HCC) 1.25 mg ONCE 10/05/2024 10/05/2024 Ended bevacizumab (Jase's) 1.25 mg intravitreal syringe (AVASTIN)Indications:Exud ative age-related macular 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 (HCC) 1.25 mg ONCE 10/05/2024 10/05/2024 Ended Active Problems Problem Noted Date Diagnosed Date 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 r 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 04/06/2024 Pseudophakia 01/27/2022 PCO (posterior capsular opacification), bilatera l 01/27/2022 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 01/27/2022 Pre-operative examination 04/14/2021 Fuchs' corneal dystrophy of left eye 04/14/2021 Mild intermittent asthma without complication History of breast cancer 08/27/2020 Lower leg edema 08/27/2020 Osteopenia of multiple sites 12/02/2018 Joint stiffness of multiple sites 07/22/2017 Primary osteoarthritis of both knees 05/04/2017 Contusion, knee and lower le g, unspecified laterality, initial encounter 05/04/2017 Inflammatory arthritis 12/17/2016 Pseudogout involving multiple joints 06/15/2016 Long-term use of Plaquenil 06/15/2016 Essential hypertension 04/22/2016 Primary osteoarthritis of left knee 04/19/2016 DJD (degenerative joint disease), ankle and foot 03/17/2016 Foot deformity, bilateral 03/17/2016 Hammer toes, bilateral 03/17/2016 Status post bilateral knee replacements 09/03/19 16 Elevated C-reactive protein (CRP) 02/25/2015 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, multiple sites 08/22/2014 Pain in toe of right foot 08/22/2014 Secondary osteoarthritis of multiple sites 04/17 Hip pain, bilateral 11/22/2013 Multiple joint pain 02/10/2012 Encounter for long-term (current) use of medicat ions 02/10/2012 Bursitis of hip, right 02/10/2012 Fatigue 11/25/2011 Family history of lupus erythematosus 11/25/2011 Vitamin D deficiency 09/28/2011 Facet syndrome 12/14/2008 Postlaminectomy syndrome, lumbar region 12/15/19 09 Hypothyroidism GERD (gastroesophageal reflux disease) Resolved Problems Problem Noted Date Diagnosed Date Resolved Date Carrier or suspected carrier of methicillin resistant Staphylococcus aureus 03/17/2016 06/03/19 17 LETICIA positive 11/25/2011 06/02/2016 Encounters Date Type Department Care Team Description 10/05/2024 10:15 AM EDT Office Visit [facility] Ophthalmology [address] [place] [address] Cristobal Shields MD Diagnostics, Eye Tech And 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) (Primary Dx); Dry eye syndrome of both eyes; Pseudophakia of both eyes; History of YAG laser capsulotomy of lens, right; Posterior vitreous detachment of both eyes 10/04/2024 Travel 09/14/2024 Telephone Rheumatology [address] [facility] [address] Baylee Leon MD Results ([facility]) 09/13/2024 10:30 AM EDT Office Visit [facility] Ophthalmology [address] [place] [address] Abner Tomlin S, OD Diagnostics, Eye Tech And History of YAG laser capsulotomy of lens, right (Primary Dx); Pseudophakia of both eyes; 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); 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; History of Descemet membrane endothelial keratoplasty (DMEK); Dry eye syndrome of both eyes; 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 09/07/2024 1:30 PM EDT Office Visit [facility] Ophthalmology [address] [place] [address] Sharon Yadav V, MD PCO (posterior capsular opacification), right (Primary Dx); Pseudophakia; 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); History of Descemet membrane endothelial keratoplasty (DMEK) 09/04/2024 2:00 PM EDT Nurse Visit Rheumatology [address] [facility] [address] Nurse Lucrecia Gayle [facility] Senile osteoporosis (Primary Dx); Personal history of other drug therapy 09/03/2024 Travel 08/30/2024 Patient [facility] [place] [address] Yaneth Yoon RPh At your next appointment, choose [facility]. 08/28/2024 Telephone Rheumatology [address] [facility], [place] [id number] Baylee Leon MD Orders 08/17/2024 Telephone Rheumatology [address] [facility] [place] [address] Baylee Leon MD Results 08/10/2024 Telephone Rheumatology [address] [facility] [place] [address] Baylee Leon MD Patient Question; Appointment 08/04/2024 Patient Msg Ophthalmology [address] [facility] [place] [address] Provider, [facility] Appointment Reschedule 07/30/2024 Get Medical Advice Ophthalmology [address] [address] Nic Santos MD Next appt. from Last 3 Months Immunizations Immunization Administration Dates Next Due COVID-19 original vaccine, a ge 12+ yr, monovalent (ThinkCERCA - PURPLE TOP) 03/29/2020,03/08/2020 influenza (HD-IIV4) vaccine, age 65+ yr, high dose, quadrivalent, PF (FLUZONE HIGH-DOSE) 09/22/2019 influenza (IIV4) vaccine, ag e 6 mo - 64 yr, quadrivalent (AFLURIA, FLULAVAL, FLUZONE) 01/13/2018 influenza (IIV4) vaccine, ag e 6 mo - 64 yr, quadrivalent, PF (AFLURIA, FLUARIX, FLULAVAL, FLUZONE) 09/25/2019,09/09/2019 influenza (IIV4) vaccine, qu adrivalent (AFLURIA, FLULAVAL, FLUZONE) 12/17/2015 influenza (ccIIV3) vaccine, age 6+ mo, trivalent, PF (FLUCELVAX) 12/19/2018,11/12/2016 pneumococcal polysaccharide (PPV23) vaccine, 23 valent (PNEUMOVAX 23) 02/23/2019,07/11/2009 zoster (RZV) vaccine, recombinant (SHINGRIX) ,04/10/2019 Family History Medical History Relation Comments Hypertension Brother 1 Lipids Brother 2 5 brothers Diabetes Brother 3 Arthritis Father s/p TKR COPD Father Hypertension Father fuchs Father COPD Maternal Grandfather Stroke Maternal Grandfather Breast Cancer Maternal Grandmother Hypertension Maternal Grandmother Coronary Artery Disease Mother Diabetes Mother Heart Mother Hypertension Mother Lipids Mother Diabetes Paternal Grandfather Diabetes Paternal Grandmother Hypertension Paternal Grandmother Hypertension Sister 1 Lipids Sister 2 Relation Status Comments Brother 1 Brother 2 Brother 3 Father Maternal Grandfather Maternal Grandmother Mother Paternal Grandfather Paternal Grandmother Sister 1 Sister 2 Social History Tobacco Use Types Packs/Day Years Used Date Smoking Tobacco: Former Cigarettes Q uit: 06/21/1974 Smokeless Tobacco: Never Tobacco Cessation:Counseling Given: Yes Comments:socially only Alcohol Use Standard Drinks/Week Comments Yes 0 (1 standard drink = 0.6 oz pur e alcohol) socially PHQ-2 Answer Date Recorded PHQ-2 score 2 11/28/2018 Area Deprivation Index Answer Date Russell rded National Score (1-100), lower number is lower ri sk 87 08/03/2022 State Score (1-10), lower number is lower risk 8 08/03/2022 Data from: https://www.neighborhoodatlas.medicine.[facility].edu/. Last address used for calculation [address] [place] [address] 08/03/2022 Comments No Sex and Gender Information Value Date Recorded Sex Assigned at Not on file Legal Sex Female 9:11 AM EST Gender Identity Not on file Sexual Orientation Not on file Last Filed Vital Signs Vital Sign Reading Time Taken Comments Blood Pressure 131/82 11/29/2023 11:50 AM EDT Pulse 96 11/29/2023 11:50 AM EDT Temperature 3.3 C (38 F) 02/23/2022 5:29 PM EST Respiratory Rate 16 02/23/2022 5:29 PM EST Oxygen Saturation 96% 02/23/2022 5:29 PM EST Inhaled Oxygen Concentration - - Weight 70.7 kg (155 lb 13.8 oz) 024 11:50 AM EDT Height 160 cm (5' 3 ) 04/14/2021 10:13 AM EST Body Mass Index 27.61 04/14/2021 10:13 AM EST Plan of Treatment Upcoming Encounters Date Type Department Care Team (Latest Contact Info) Description 10/23/2024 12:20 PM EDT Office Visit Rheumatology [address] [place] [address] Baylee Leon MD [address] [place] [address] for osteoporosis/osteoar thritis/pseudogout fu OV 6-12months./Last Prolia 09/04/24 12/28/2024 1:30 PM EST Office Visit [facility] Ophthalmology [address] [place] [address] Cristobal Shields MD [address] [place] [address] Diagnostics, Eye Tech And [address] [address] *12 W, DFE/OCT/OPTOS/FAF, AVASTIN OU 04/19/2025 9:15 AM EDT Office Visit [facility] Ophthalmology [address] [address] Nic Santos MD [address] [place] [address] Diagnostics, Eye Tech And [address] [address] Corneal Transplant yearly Health Maintenance Due Date Last Done Comments Anxiety Screening 1960 Depression Screening 1960 DTaP,Tdap,Td Vaccine (1 - Tdap) 1961 Bone Density Screening 2007 RSV Vaccine (1 - 1-dose 75+ series) 2017 Advance Directive Discussion 02/09/2024 Medicare Advantage Annual We llness Visit 02/09/2024 Influenza Vaccine (#1) 2024 3, 12/19/2021, 08/18/2021, Additional history exists Diabetes Screening 03/02/2027 03/02/2024, 0 03/05/2023, 08/03/2022, Additional history exists Pneumococcal Vaccine: 50+ Completed 2019, 12/31/2014, 07/11/2009 Shingrix Vaccine Completed 09/22/2019, 04/10/2019 Medical Devices Implanted Type Area Tip Stitcher Device Identifier Shelf Expiration Date Model / Serial / Lot Bernard Bn Smplx Hv Gentamicin Fd - [id number] Implanted:06/25 at [facility] (Quantity not on file) Cement / Putty Left: Bone - Knee [facility] 03/10/2018 [id number] / / [id number] Bernard Bn Smplx Hv Gentamicin Fd - [id number] Implanted:06/25 at [facility] (Quantity not on file) Cement / Putty Left: Bone - Knee [facility] 03/10/2018 [id number] / / [id number] Cornea Tissue Pre-Loaded Dmek - [id number] Implanted:Qty: 1 on 09/09/2020 by Nic Santos MD at [facility] Cornea Right: Eye - Cornea [employer] 09/14/2020 CORNEA TISSUE FEE / 21 [id number] / Cornea Tissue Pre-Loaded Dmek - [id number] Implanted:Qty: 1 on 04/28/2021 by Nic Santos MD at [facility] Cornea [employer] 05/05/2021 CORNEA TISSUE FEE / 22 [id number] / Gas Ispan Constellation Intraocular Vision System Sf6 125gm - [id number] Implanted:Qty: 1 on 09/09/2020 by Nic Santos MD at [facility] Implant [facility] 07/08/2021 [id number] / / [id number] Gas Ispan Constellation Intraocular Vision System Sf6 125gm - [id number] Implanted:Qty: 1 on 04/28/2021 by Nic Santos MD at [facility] Implant Left: Eye [facility] 06/07/2021 [id number] / / [id number] Lens Iol 0d +23 Savi Uv Abs - [id number] Implanted:Qty: 1 on 09/09/2020 at [facility] Intraocular Lens Right: Eye [facility] 03/14/2025 SA60WF.230 / [id number] / Lens Iol 0d +23 Savi Uv Abs - [id number] Implanted:Qty: 1 on 04/28/2021 at [facility] Intraocular Lens Left: Eye [facility] 12/24/2025 SA60WF.230 / [id number] / Component Persona 7 Standard Cocr Femoral Cemented Posterior - [id number] Implanted:06/25 at [facility] (Quantity not on file) Joint - Knee Left: Bone - Knee [facility] [employer] 06/07/2026 [id number] / / [id number] Component 32mm All Poly Patellar Psn - [id number] Implanted:06/25 at [facility] (Quantity not on file) Joint - Knee Left: Bone - Knee [employer] 03/10/2024 [id number] / / [id number] Surface Persona 6-9 Cd Vivacit-E 10mm Articular Constrain Posterior - [id number] Implanted:Qty: 1 on 06/25/2016 at [facility] Joint - Knee Left: Bone - Knee [employer] 03/10/2019 [id number] / / [id number] Baseplate Persona 5d D Tivanium Tibial Cemented Stem Knee Left - [id number] Implanted:06/25 at [facility] (Quantity not on file) Joint Left: Bone - Knee [facility] [employer] 04/07/2026 [id number] / / [id number] Procedures Procedure Name Priority Date/Time Associated Diagnosis [...] both eyes with active choroidal neovascularization (HCC) YAG CAPSULOTOMY OD (RIGHT EYE) Routine 09/07/2024 1:30 PM EDT PCO (posterior capsular opacification), right VITAMIN D 25 HYDROXY Routine 08/16/2024 10:13 AM EDT Vitamin D deficiency CALCIUM TOTAL BLD Routine 08/16/2024 10:13 AM EDT Hypocalcemia COMPREHENSIVE METABOLIC PANEL Routine 03/02/2024 10:31 AM EST Elevated LFTs from Last 3 Months or Most Recently Relevant to Health Maintenance Results * AVASTIN (BEVACIZUMAB) 1.25MG INTRAVITREAL INJECTION OS (LEFT EYE) (10/05/2024 12:53 PM EDT) Narrative Cristobal Shields MD - 10/05/2024 12:53 PM EDT Date of Procedure 10/05/2024 [facility] Protocol Safety Checklist A moment of CARE [...] Medications None. Home Going Prescription None. us Crisotbal Shields MD OPHTHALMOLOGY Final Result * AVASTIN (BEVACIZUMAB) 1.25MG INTRAVITREAL INJECTION OD (RIGHT EYE) (10/05/2024 12:53 PM EDT) Narrative Cristobal Shields MD - 10/05/2024 12:53 PM EDT Date of Procedure 10/05/2024 [facility] Protocol Safety Checklist A moment of CARE [...] Procedure Medications None. Home Going Prescription None. Cristobal Shields MD OPHTHALMOLOGY Final Result * [...] Right Eye Stable. Left Eye Stable. Result [facility] Cristobal Shields MD OPHTHALMOLOGY Final Result * FUNDUS AUTOFLUORESCENCE PHOTO (FAF) OU (BOTH EYES) (10/05/2024 11:32 AM EDT) Anatomical Region Laterality Modality Other Narrative 10/05/2024 11:32 AM EDT Date of Procedure 10/05/2024. Interpretation Right Eye Hypofluorescence. Left Eye Hypofluorescence. Cristobal Shields MD OPHTHALMOLOGY Final Result * YAG CAPSULOTOMY OD (RIGHT EYE) (09/07/2024 1:30 PM EDT) Narrative Sharon Yadav V, MD - 09/08/2024 4:21 PM EDT Date of Procedure 09/07/2024 [facility] Protocol Safety Checklist A moment of CARE was completed Sign In Sign in communication not applicable due to emergent procedure. Personnel directly involved with the procedure wore the appropriate PEE. Special Equipment: yes. Patient/surrogate stated/verified patient name, date of , relevant allergies, intended procedure. Provider Confirms: Relevant labs, photos, and/or imaging studies have been reviewed: N/A. Intended patient and procedure match the source document(s) (e.g. consent, associated studies [imaging, pathology]). Consent obtained and matches the intended procedure. Correct side/site marked and visible. Medications required for procedure verified. Fire risk assessed and interventions discussed. Correct implant(s) confirmed including size and side: N/A. Sign Out All specimens are correctly labeled and sent: N/A. All instruments, equipment, possible retained foreign bodies accounted for. Post-procedure POC communicated to patient or surrogate: N/A. Post-procedure POC communicated to patient's multidisciplinary team: N/A. Anesthesia None. Pre Laser Meds None (timolol given). Post Laser Meds None. Home Going Prescription None. us Sharon Thibodeaux MD OPHTHALMOLOGY Final Result * VITAMIN D 25 HYDROXY (08/16/2024 10:13 AM EDT) Vitamin D 25 Hydroxy 45.8 31.0 - 80.0 ng/mL 08/16/2024 7:50 PM EDT [facility] Comment: Classification of 25 [place] Vitamin D status: Deficiency/Insufficiency: < or = 30 ng/ml. Sufficiency/Optimal Levels: 31-80 ng/mL Toxicity: > 100 ng/mL. Test performed by chemiluminescent immunoassay. Blood BLOOD SPECIMEN / Unknown Venipuncture / Unknown 08/16/2024 10:13 AM EDT 08/16/2024 10:13 AM EDT Narrative [facility] - 08/16/2024 7:50 PM EDT The reference range interval was based on an analysis of samples from healthy adults and may not pertain to children from 0-18 years old. us Baylee Leon MD LABORATORY Final Result [facility] [address] [address], * CALCIUM, TOTAL (08/16/2024 10:13 AM EDT) Calcium, Total 10.1 8.5 - 10.2 mg/dL 08/16/2024 10:[address] [facility] Blood BLOOD SPECIMEN / Unknown Venipuncture / Unknown 08/16/2024 10:13 AM EDT 08/16/2024 10:13 AM EDT us Baylee Leon MD LABORATORY Final Result [facility] [address] [place] [address] * (ABNORMAL) COMPREHENSIVE METABOLIC PANEL (03/02/2024 10:31 AM EST) Protein, Total 6.5 6.3 - 8.0 g/dL 03/02/2024 10:[address] [facility] Albumin 4.3 3.9 - 4.9 g/dL 03/02/2024 10:[address] [facility] Calcium, Total 10.3(H) 8.5 - 10.2 mg/dL 03/02/2024 10:56 AM [facility] Bilirubin, Total 0.3 0.2 - 1.3 mg/dL 03/02/2024 10:56 AM [facility] Alkaline Phosphatase 85 34 - 123 U/L 03/02/2024 10:56 AM [facility] AST 10(L) 13 - 35 U/L 03/02/2024 10:56 AM [facility] ALT 5(L) 7 - 38 U/L 03/02/2024 10:56 AM [facility] Glucose 94 74 - 99 mg/dL 03/02/2024 10:56 AM [facility] Comment: The [place] Diabetes Association (ADA) provides guidance for cutoff [...] Standards of Medical Care in Diabetes 2016, [place] Diabetes Association. Diabetes Care. 2016.39(Suppl 1). BUN 14 7 - 21 mg/dL 03/02/2024 10:56 AM [facility] Creatinine 0.85 0.58 - 0.96 mg/dL 03/02/2024 10:56 AM [facility] Sodium 140 136 - 144 mmol/L 03/02/2024 10:56 AM [facility] Potassium 4.0 3.7 - 5.1 mmol/L 03/02/2024 10:56 AM [facility] Chloride 98 98 - 107 mmol/L 03/02/2024 10:56 AM [facility] CO2 32(H) 22 - 30 mmol/L 03/02/2024 10:56 AM [facility] Anion Gap 10 8 - 15 mmol/L 03/02/2024 10:[address] [facility] Estimated Glomerular Filtration Rate 69 >=60 mL/min/1. 73m 03/02/2024 10:[address] [facility] Comment:Estimated Glomerular Filtration Rate (eGFR) is calculated using the 2020 CKD-EPI creatinine equation. This equation utilizes serum creatinine, sex, and age as parameters. The creatinine assay has traceable calibration to isotope dilution- mass spectrometry. Refer to KDIGO guidelines for clinical interpretation. In patients with unstable renal function, e.g. those with acute kidney injury, the eGFR may not accurately reflect actual GFR. Blood BLOOD SPECIMEN / Unknown Venipuncture / Unknown 03/02/2024 10:31 AM EST 03/02/2024 10:31 AM EST Baylee Leon MD LABORATORY Final Result [facility] [address] [place] [address] from Last 3 Months or Most Recently Relevant to Health [place] [address] [facility] MEDICARE ADVANTAGE PPO Care Teams Network Solutions Architect Relationship Specialty Start Date End Date Roney Leroy DO [address] [place] [address] PCP - General 05/19/00
--- OUTSIDE RECORDS SUMMARY | 2024-10-07 12:00 | XMS_ITS | Encounter Summary ---
Author Organization [facility] Address [address] [facility] [place] [address] Care Team Providers Care Grind Operator Name Role Phone Roney Leroy DO Primary Care Provider [phone] Marifer Castellanos MD Unavailable Jc Escobar DO Unavailable [phone] Baylee Leon MD Unavailable [phone] Melvin Dick DO Primary Care Provider Meir Morrissey MD Unavailable [phone] Encounter Details Date Type Department Care Team (Late st Contact Info) Description 11/12/[address] [facility] [address] [facility] [address] [place] [phone] A, Unknown Practice [address] [id number] Social History Tobacco Use Types Packs/Day Years [...] week 11/10/2022 How often do you attend [facility] or confucianism services? More than 4 times per year 11/10/2022 Do you belong to any clubs o r organizations such as religion groups, unions, fraternal or athletic groups, or [...] Recorded Patient Health Questionnaire-2 Score 0 11/11/2022 [facility] - Occupational Stress [...] EDT Office Visit [facility] [address] [facility] [place] [address] 08/30/2025 10:45 AM EDT Office Visit [facility] [address] [facility] [address] [place] [address] Jc Escobar DO [address] [facility] [address] [place] [address] documented as of this encounter Procedures Procedure Name Priority Date/Time Associated Diagnosis Comments HOLTER MONITOR 48HR Routine 11/09/2022 12:45 PM EDT documented in this encounter Results * HOLTER MONITOR 48HR (11/09/2022 12:45 PM EDT) Anatomical Region Laterality Modality Radiographic Samara ging us Unknown Practice A IMG XR PROCEDURES Final Resul t documented in this encounter Visit Diagnoses Not on filedocumented in this encounter Care Teams Grind Operator Relationship Specialty Start Date End Date Roney Leroy DO [address] [facility] [address] [place] [address] PCP - General Family Medicine 08/04/22 09/28/23 Melvin Dick DO [address] [address] PCP - General Family Medicine 09/29/23 Marifer Castellanos MD [address] [place] [address] Oncology 01/29/23 Jc Escobar DO [address] [facility] [address] [place] [address] Referring Physician General Surgery 01/29/23 Baylee Leon MD [address] [place] [address] Referring Physician Rheumatology 01/29/23 Meir Morrissey MD [address] [place] [address] Referring Physician Gastroenterology 03/15/24 documented as of this encounter
--- OUTSIDE RECORDS SUMMARY | 2024-10-07 12:00 | XMS_ITS | Encounter Summary ---
Author Organization [facility] Address [address] [facility] [place] [address] Care Team Providers Care Pickling Drum Operator Name Role Phone Roney Leroy DO Primary Care Provider [phone] Marifer Castellanos MD Unavailable Jc Escobar DO Unavailable [phone] Baylee Leon MD Unavailable [phone] Melvin Dick DO Primary Care Provider Meir Morrissey MD Unavailable [phone] Encounter Details Date Type Department Care Team (Late Contact Info) Description 06/22/2022 Abstract [facility] [address] [address] Jc Escobar DO 703 [facility] 150 [place] [address] Social History Tobacco Use Types Packs/Day Years Used Date Smoking Tobacco: Never Assessed Comments Unknown Sex and Gender Information Value Date Recorded Sex Assigned at Not on file Legal Sex Female 7:11 PM EDT Gender Identity Not on file Sexual Orientation Not on file documented as of this encounter Plan of Treatment Upcoming Encounters Date Type Department Care Team (Late Contact Info) Description 11/02/2024 10:00 AM EDT Office [facility] [address] [facility] [place] [address] 08/30/2025 10:45 AM EDT Office Visit [facility] [address] [address] [place] [address] Jc Escobar, DO [address] [address] [place] [address] documented as of this encounter Visit Diagnoses Not on filedocumented in this encounter Care Teams Pickling Drum Operator Relationship Specialty Start Date End Date Roney Leroy, DO [address] [facility] [address] [place] [address] PCP - General Family Medicine 08/04/22 09/28/23 Melvin Dick DO [address] [facility] 230 [place] [address] PCP - General Family Medicine 09/29/23 Marifer Castellanos MD [address] [facility] [address] Oncology 01/29/23 Jc Escobar DO [address] [address] [place] [address] Referring Physician General Surgery 01/29/23 Baylee Leon MD [address] [facility] [address] Referring Physician Rheumatology 01/29/23 Meir Morrissey MD [address] [facility] 230 [place] [address] Referring Physician Gastroenterology 03/15/24 documented as of this encounter
--- OUTSIDE RECORDS SUMMARY | 2024-10-07 12:00 | XMS_ITS | Encounter Summary ---
Author Organization [facility] Address [address] [facility] [place] [address] Care Team Providers Care Drill Presser Name Role Phone Roney Leroy DO Primary Care Provider [phone] Marifer Castellanos MD Unavailable Jc Escobar DO Unavailable [phone] Baylee Leon MD Unavailable [phone] Melvin Dick DO Primary Care Provider [phone] Meir Morrissey MD Unavailable [phone] Encounter Details Date Type Department Care Team (Late st Contact Info) Description 11/11/[address] [facility] [address] [facility] [address] 230 [place] [address] Melvin Dick DO [address] [facility] [address] 230 [place] [address] Social History Tobacco Use Types [...] How often do you attend chur or orthodoxy services? More than 4 times per year 11/10/2022 Do you belong to any clubs o r organizations such as confucianism groups, unions, fraternal or athletic groups, or [...] Recorded Patient Health Questionnaire-2 Score 0 11/11/2022 [facility] [place] of Occupat ional Health - Occupational Stress [...] place to sleep or slept in a retirement (including now)? No 11/10/2022 Comments Unknown Sex [...] Visit [facility] [address] [facility] [place] [address] 08/30/2025 10:45 AM EDT Office Visit [facility] [address] [place] [address] Jc Escobar DO [address] [place] [address] documented as of this encounter Visit Diagnoses Not on filedocumented in this encounter Care Teams Drill Presser Relationship Specialty Start Date End Date Roney Leroy DO [address] [facility] [address] [place] [address] PCP - General Family Medicine 08/04/22 09/28/23 Melvin Dick DO [address] [facility] [address] [place] [address] PCP - General Family Medicine 09/29/23 Marifer Castellanos MD 701 [place] [address] Oncology 01/29/23 Jc Escobar DO [address] [address] Referring Physician General Surgery 01/29/23 Baylee Loen MD 57[address] [facility] [place] [address] Referring Physician Rheumatology 01/29/23 Meir Morrissey MD [address] [address] Referring Physician Gastroenterology 03/15/24 documented as of this encounter
--- OUTSIDE RECORDS SUMMARY | 2024-10-07 12:00 | XMS_ITS | Encounter Summary ---
Author Organization [facility] Address [address] [facility] [place] [address] Care Team Providers Care Global Cmo Name Role Phone Roney Leroy DO Primary Care Provider [phone] Marifer Castellanos MD Unavailable Jc Escobar DO Unavailable [phone] Baylee Leon MD Unavailable [phone] Melvin Dick DO Primary Care Provider [phone] Meir Morrissey MD Unavailable [phone] Encounter Details Date Type Department Care Team (Late st Contact Info) Description 12/09/2022 Abstract [facility] [place] [facility] 230 [address] [facility] [address] 230 [place] [address] Roney Leroy DO [address] [facility] [address] 230 [place] [address] Social History Tobacco Use Types Packs/Day Years [...] How often do you attend chur or latter-day services? More than 4 times per year [...] Recorded Patient Health Questionnaire-2 Score 0 11/11/2022 [facility] [place] of Occupat ional Health - Occupational Stress [...] Visit [facility] [address] [facility] [place] [address] 08/30/2025 10:45 AM EDT Office Visit [facility] [address] [id number] Jc Escobar DO [address] [place] [address] documented as of this encounter Visit Diagnoses Not on filedocumented in this encounter Care Teams Global Cmo Relationship Specialty Start Date End Date Roney Leroy DO [address] [facility] 230 [place] [address] PCP - General Family Medicine 08/04/22 09/28/23 Melvin Dick DO [address] [facility] 230 [place] [address] PCP - General Family Medicine 09/29/23 Marifer Castellanos MD 701 [facility] [place] [address] Oncology 01/29/23 Jc Escobar DO [address] [address] Referring Physician General Surgery 01/29/23 Baylee Leon MD 5700 [facility] [place] [address] Referring Physician Rheumatology 01/29/23 Meir Morrissey MD [address] [facility] 230 [place] [address] Referring Physician Gastroenterology 03/15/24 documented as of this encounter
--- OUTSIDE RECORDS SUMMARY | 2024-10-07 12:00 | XMS_ITS | Encounter Summary ---
Author Organization [facility] Address [address] [place] [address] Care Team Providers Care Wire Rigger Name Role Phone Roney Leroy Primary Care Provider [phone] Source Comments In the event this information is protected by the Federal Confidentiality of Alcohol and Drug AbusePatient Records regulations: The Federal rules restrict any use of the information to criminally investigate or prosecute any alcohol or drug abuse patient.[facility] Encounter Details Date Type Department Care Team (Late st Contact Info) Description 12/02/2018 Patient Msg Rheumatology 5700 [facility] John [facility], [place] [phone] Baylee Leon MD 5700 [place] [address] results Social History Tobacco Use Types Packs/Day Years Used Date Smoking Tobacco: Former Cigarettes Q uit: 06/21/1974 Smokeless Tobacco: Never Comments:socially only Alcohol Use Standard Drinks/Week Comments Yes 0 (1 standard drink = 0.6 oz pur e alcohol) socially PHQ-2 Answer Date Recorded PHQ-2 score 2 11/28/2018 Comments No Sex and Gender Information Value [...] 12:20 PM EDT Office Visit Rheumatology 5700 [place] [address] Baylee Leon MD 5700 [place] [address] for osteoporosis/osteoar thritis/pseudogout fu OV 6-12months./Last Prolia 09/04/24 12/28/2024 1:30 PM EST Office Visit [facility] 5700 [place] [address] Cristobal Shields MD [address] [place] [address] [facility] [address] [address] *12 W, DFE/OCT/OPTOS/FAF, AVASTIN OU 04/19/2025 9:15 AM EDT Office Visit [facility] [address] [address] Nic Santos MD [address] [place] [address] [facility] [address] [address] Corneal Transplant yearly documented as of this encounter Visit Diagnoses Not on filedocumented in this encounter Care Teams Wire Rigger Relationship Specialty Start Date End Date Roney Leroy DO [address] [address] PCP - General 05/19/00 documented as of this encounter
--- OUTSIDE RECORDS SUMMARY | 2024-10-07 12:00 | XMS_ITS | Encounter Summary ---
Author Organization [facility] Address [address] [place] [address] Care Team Providers Care Ballpoint Pens Assembler Name Role Phone Roney Leroy Primary Care Provider [phone] Source Comments In the event this information is protected by the Federal Confidentiality of Alcohol and Drug AbusePatient Records regulations: The Federal rules restrict any use of the information to criminally investigate or prosecute any alcohol or drug abuse patient.[facility] Encounter Details Date Type Department Care Team (Late st Contact Info) Description 06/30/2019 Patient Msg Rheumatology 5700 [facility] John [facility] [place] [address] Baylee Leon MD 5700 [place] [address] results Social History Tobacco Use Types Packs/Day [...] have Coronavirus / COVID-19? No / Unsure 06/16/2019 7:54 AM EDT documented as of this encounter [...] 12:20 PM EDT Office Visit Rheumatology 5700 [facility] [place] [id number] Baylee Leon MD 5700 [facility] [address] for osteoporosis/osteoar thritis/pseudogout fu OV 6-12months./Last Prolia 09/04/24 12/28/2024 1:30 PM EST Office Visit [facility] 5700 [place] [address] Cristobal Shields MD 0579 [place] [address] [facility] [address] [address] *12 W, DFE/OCT/OPTOS/FAF, AVASTIN OU 04/19/2025 9:15 AM EDT Office Visit [facility] [address] [address] Nic Santos MD 9607 [place], [place] [address] [facility] [address] [address] Corneal Transplant yearly documented as of this encounter Visit Diagnoses Not on filedocumented in this encounter Care Teams Ballpoint Pens Assembler Relationship Specialty Start Date End Date Roney Leroy DO [address] [place] [address] PCP - General 05/19/00 documented as of this encounter
--- OUTSIDE RECORDS SUMMARY | 2024-10-07 12:00 | XMS_ITS | Encounter Summary ---
Author Organization [facility] Address [address] [facility] [place] [address] Care Team Providers Care Project Executive Name Role Phone Roney Leroy DO Primary Care Provider [phone] Marifer Castellanos MD Unavailable Jc Escobar DO Unavailable [phone] Baylee Leon MD Unavailable [phone] Melvin Dick DO Primary Care Provider [phone] Meir Morrissey MD Unavailable [phone] Encounter Details Date Type Department Care Team (Late st Contact Info) Description 12/09/2022 Abstract [facility] [place] [facility] 230 [address] [facility] [address] 230 [place] [address] Roney Leroy DO [address] [facility] [address] [place] [address] Social History Tobacco Use Types Packs/Day Years [...] any clubs o r organizations such as hinduism groups, unions, fraternal or athletic groups, or [...] Recorded Patient Health Questionnaire-2 Score 0 11/11/2022 [facility] [place] of Occupat ional Health - Occupational Stress [...] place to sleep or slept in a detention (including now)? No 11/10/2022 Comments Unknown Sex [...] Visit [facility] [address] [facility] [place] [address] 08/30/2025 10:45 AM EDT [facility] Visit [facility] [address] [address] Jc Escobar DO [address] [place] [address] documented as of this encounter Visit Diagnoses Not on filedocumented in this encounter Care Teams Project Executive Relationship Specialty Start Date End Date Roney Leroy DO [address] [facility] 230 [place] [address] PCP - General Family Medicine 08/04/22 09/28/23 Melvin Dick DO [address] [facility] 230 [place] [address] PCP - General Family Medicine 09/29/23 Marifer Castellanos MD 701 [facility] [address] Oncology 01/29/23 Jc Escobar DO [address] [address] Referring Physician General Surgery 01/29/23 Baylee Leon MD 5700 [facility] [place] [address] Referring Physician Rheumatology 01/29/23 Mier Morrissey MD [address] [facility] 230 [place] [address] Referring Physician Gastroenterology 03/15/24 documented as of this encounter
--- OUTSIDE RECORDS SUMMARY | 2024-10-07 12:00 | XMS_ITS | Encounter Summary ---
Author Organization [facility] Address [address] [facility] [place] [address] Care Team Providers Care Wholesale Account Executive Name Role Phone Roney Leroy DO Primary Care Provider [phone] Marifer Castellanos MD Unavailable Jc Escobar DO Unavailable [phone] Baylee Leon MD Unavailable [phone] Melvin Dick DO Primary Care Provider Meir Morrissey MD Unavailable [phone] Encounter Details Date Type Department Care Team (Late st Contact Info) Description 09/02/2022 Abstract [facility] 703 [facility] 150 [place] [address] Jc Escobar DO 703 [facility] 150 [place] [address] Social History Tobacco Use Types [...] Office Visit [facility] [address] [facility] [place] [address] 08/30/2025 10:45 AM EDT Office Visit [facility] 703 [facility] 150 [place] [address] Jc Escobar DO 703 [facility] 150 [place] [address] documented as of this encounter Visit Diagnoses Not on filedocumented in this encounter Care Teams Wholesale Account Executive Relationship Specialty Start Date End Date Roney Leroy DO [address] [facility] [place] [address] PCP - General Family Medicine 08/04/22 09/28/23 Melvin Dick DO [address] [facility] 230 [place] [address] PCP - General Family Medicine 09/29/23 Marifer Castellanos MD 701 [place] [address] Oncology 01/29/23 Jc Escobar DO 703 [facility] 150 [place] [address] Referring Physician General Surgery 01/29/23 Baylee Leon MD 5700 [facility] [place] [address] Referring Physician Rheumatology 01/29/23 Meir Morrissey MD [address] [place] [address] Referring Physician Gastroenterology 03/15/24 documented as of this encounter
--- OUTSIDE RECORDS SUMMARY | 2024-10-07 12:00 | XMS_ITS | Encounter Summary ---
Author Organization [facility] Address [address] [facility] [place] [address] Care Team Providers Care Cartridge Loading Operator Name Role Phone Roney Leroy DO Primary Care Provider [phone] Marifer Castellanos MD Unavailable Jc Escobar DO Unavailable [phone] Baylee Leon MD Unavailable [phone] Melvin Dick DO Primary Care Provider [phone] Meir Morrissey MD Unavailable [phone] Encounter Details Date Type Department Care Team (Late st Contact Info) Description 10/28/2022 Abstract [facility] 230 [address] [facility] 230 [place] [address] Roney Leroy, [address] [facility] [address] 230 [place] [address] Social History Tobacco Use Types Packs/Day Years [...] [facility] [address] [facility] [place] [address] 08/30/2025 10:45 AM EDT [facility] Visit [facility] [address] [phone] Jc Escobar DO 703 [facility] 150 [place] [address] documented as of this encounter Visit Diagnoses Not on filedocumented in this encounter Care Teams Cartridge Loading Operator Relationship Specialty Start Date End Date Roney Leroy DO [address] [facility] [place] [address] PCP - General Family Medicine 08/04/22 09/28/23 Melvin Dick DO [address] [facility] 230 [place] [address] PCP - General Family Medicine 09/29/23 Marifer Castellanos MD 701 [place] [address] Oncology 01/29/23 Jc Escobar DO 703 [facility] 150 [place] [address] Referring Physician General Surgery 01/29/23 Baylee Leon MD 5700 [place] [address] Referring Physician Rheumatology 01/29/23 Meir Morrissey MD [address] [facility] 230 [place] [address] Referring Physician Gastroenterology 03/15/24 documented as of this encounter
--- NOTE | 2024-10-07 12:33 | ED.EYEPROB1 ---
HPI - Eye Problem General Chief complaint: Eye Problems Stated complaint: EYE PAIN Time Seen by Provider: 10/07/24 11:52 Source: patient Mode of arrival: walk-in History of Present Illness HPI Narrative: The patient is 84 years old female with history of complicated history is brought to us by her son after she has been having symptoms for the last 6 days, per the patient on Wednesday she started having those symptoms when she was driving to her appointment to the retina specialist, at that day the patient apparently evaluated and the was told that her retina is not the issue It is noted that the patient have a history of retinal detachment with multiple injection to the retina in addition to also have a history of corneal transplant The patient since then has been having double vision with a left-sided headache and pressure, there is no nausea no vomiting no other concerns about the patient have already at chronic imbalance issue and dizziness that is not exacerbated in the last few days No weakness in the lower or upper extremities Related Data Home Medications ?Medication ?Instructions ?Recorded ?Confirmed anastrozole 1 mg tablet 1 mg PO DAILY 10/20/22 10/20/22 denosumab 60 mg/mL subcutaneous 60 mg subcut .twice a year 10/20/22 10/20/22 syringe (Prolia) duloxetine 60 mg capsule,delayed 60 mg PO DAILY 10/20/22 10/20/22 release levothyroxine 88 mcg tablet 88 mcg PO QAM 10/20/22 10/20/22 omeprazole 40 mg capsule,delayed 40 mg PO DAILY 10/20/22 10/20/22 release verapamil 240 mg 24 hr 240 mg PO DAILY 10/20/22 10/20/22 capsule,extended release Previous Rx's ?Medication ?Instructions ?Recorded meclizine 25 mg chewable tablet 25 mg PO QID PRN dizziness #20 tabs 10/20/22 (Antivert) ondansetron 4 mg disintegrating 4 mg PO Q6H PRN nausea and 10/20/22 tablet vomiting #20 tabs cefdinir 300 mg capsule 300 mg PO Q12H 10 days #20 caps 10/21/22 meclizine 12.5 mg tablet 25 mg (2 x 12.5 mg) PO Q6H #20 tabs 10/21/22 prednisone 20 mg tablet 20 mg PO BID 5 days #10 tabs 10/21/22 ciprofloxacin HCl 500 mg tablet 500 mg PO BID #14 tabs 10/27/23 (Cipro) hyoscyamine sulfate 0.125 mg 0.125 mg PO Q6H PRN abdominal pain 10/27/23 tablet (Levsin) #12 tabs ondansetron 4 mg disintegrating 4 mg PO Q6H PRN nausea and 10/27/23 tablet vomiting #12 tabs Allergies Allergy/AdvReac Type Severity Reaction Status Date / Time No Known Drug Allergies Allergy Verified 10/20/22 09:12 Review of Systems ROS Status of ROS 10 or more systems reviewed and unremarkable except as noted in history and below [facility] Medical History (Updated 10/07/24 @ 15:08 by Cindy Ramesh MD) IBS (irritable bowel syndrome) ?K58.9 - Irritable bowel syndrome without diarrhea (ICD-10) Rheumatoid arthritis ?M06.9 - Rheumatoid arthritis, unspecified (ICD-10) H/O nephrolithotomy with removal of calculi ?Z98.890 - Other specified postprocedural states (ICD-10) ?Z87.442 - Personal history of urinary calculi (ICD-10) Kidney stone ?N20.0 - Calculus of kidney (ICD-10) Goiter colloid, toxic, 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 - Thyrotoxicosis with toxic multinodular goiter without thyrotoxic crisis or storm (ICD-10) Hypothyroidism ?E03.9 - Hypothyroidism, unspecified (ICD-10) Hypertension ?I10 - Essential (primary) hypertension (ICD-10) Breast cancer ?C50.919 - Malignant neoplasm of unspecified site of unspecified female breast (ICD-10) Surgical History (Updated 10/21/22 @ 07:04 by Arelis Jade RN) Cataract (lens) fragments in eye following cataract surgery, bilateral ?H59.023 - Cataract (lens) fragments in eye following cataract surgery, bilateral (ICD-10) History of knee replacement procedure of right knee ?Z96.651 - Presence of right artificial knee joint (ICD-10) History of knee replacement procedure of left knee ?Z96.652 - Presence of left artificial knee joint (ICD-10) Hx of appendectomy ?Z90.49 - Acquired absence of other specified parts of digestive tract (ICD-10) History of lumpectomy of right breast ?Z98.890 - Other specified postprocedural states (ICD-10) Family History (Updated 10/20/22 @ 14:23 by Brenda Mena) Mother Family history of CHF (congestive heart failure) Family history of diabetes mellitus Family history of hypertension Family history of myocardial infarction Grandfather Family history of COPD (chronic obstructive pulmonary disease) Family history of stroke Grandmother Family history of cancer Brother Family history of diabetes mellitus Father Family history of hypertension Social History Within the past year, how often did you have a drink containing alcohol: never Within the past year, how many standard drinks containing alcohol did you have on a typical day: 1 or 2 Within the past year, how often did you have six or more drinks on one occasion: never Total score: 0 Score interpretation: A score less than 3 is consistent with normal alcohol consumption. Smoking status: Former smoker Non-prescribed substance use: denies use Previous occupational history: Retired Highest level of school completed/degree received: high school graduate Are you now , , , , never or living with a partner: In a typical week, how many times do you talk on the telephone with family, friends, or neighbors: 3 or more times per week How often do you get together with friends or relatives: 3 or more times per week How often do you attend presybeterian or sikh services: 4 or more times per year Do you belong to any clubs or organizations such as presybeterian groups unions, fraternal or athletic groups, or school groups: no Total score: 2 Score interpretation: A score of greater than or equal to 2 indicates the lowest level of social isolation. Little interest or pleasure in doing things: not at all Feeling down, depressed, or hopeless: not at all Feel stressed/tense/nervous/anxious/difficulty sleeping: not at all Gender Identity: female Exam Narrative Exam Narrative: Nurses notes and vital signs reviewed and patient is not hypoxic. General: Well-appearing and in no apparent distress. Skin: Warm, dry, no pallor noted. No rash. Head: Normocephalic, atraumatic. Neck: Supple, non-tender. Eye: Pupils are equal, round and EOMI. No scleral icterus. Ears, Nose, Mouth, and Throat: TM are clear, no nasal mucosal hypertrophy. Oral mucosa is moist, no posterior oropharynx erythema, uvula is mid-line Cardiovascular: Regular Rate and Rhythm without murmur, gallop or rub. Respiratory: No accessory muscle use or respiratory distress. Lungs are clear to auscultation, no wheezing, rales or rhonchi Chest Wall: no tenderness Back: No midline thoracic or lumbar vertebral tenderness. No CVA tenderness Musculoskeletal: normal ROM, no calf or popliteal tenderness, no lower extremity edema/swelling GI: Abdomen is soft, non-distended. Normal bowel sounds. No masses appreciated. No tenderness to palpation. No rebound, guarding, or rigidity noted. Neurological: A&O x4. No cranial nerve dysfunction observed. No truncal ataxia. Moves all extremities. Sensation intact. The patient was just slow during the ataxic test and she reported having double vision with opening both eyes but the vision field was preserved in both eyes The patient NIH score was 0 upon arrival Psychiatric: Cooperative and interactive. Normal mood and affect. Constitutional Vital Signs, click to edit/add: Last Vital Signs Temp 97.7 F 10/07/24 11:45 Pulse 96 H 10/07/24 14:30 Resp 21 H 10/07/24 14:30 BP 149/86 H 10/07/24 14:30 Pulse Ox 93 L 10/07/24 14:30 O2 Del Method Room Air 10/07/24 11:45 Course Vital Signs Vital signs: Vital Signs Temperature 97.7 F 10/07/24 11:45 Pulse Rate 102 H 10/07/24 11:45 Respiratory Rate 20 10/07/24 11:45 Blood Pressure 150/104 H 10/07/24 11:45 Pulse Oximetry 98 10/07/24 11:45 Oxygen Delivery Method Room Air 10/07/24 11:45 Temperature 97.7 F 10/07/24 11:45 Pulse Rate 96 H 10/07/24 14:30 Respiratory Rate 21 H 10/07/24 14:30 Blood Pressure 149/86 H 10/07/24 14:30 Pulse Oximetry 93 L 10/07/24 14:30 Oxygen Delivery Method Room Air 10/07/24 11:45 MDM - Eye Problem MDM Narrative Medical decision making narrative: EKG showing sinus rhythm with a heart rate of [address] elevation or depression The patient vision equity test showed 20/80 on the left eye 20/80 in the right eye and 20/80 in both eyes The patient CBC and chemistry showed no acute pathology The patient does have history of hypertension and takes losartan she also have a history of nonsustained ventricular tachycardia take verapamil but never been diagnosed before with any history of A-fib or any history of a stroke The patient also does not take any statin or any aspirin and she was started on 81 mg aspirin in the ER The patient CAT scan of the head showed no acute pathology and her case was discussed with from the teleneurology service and the he agree after discussing with him the CT angio head and neck and the 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5) fL Neut % (Auto) 74.0 (43.0-75.0) % Lymph % (Auto) 14.2 L (20.5-60.0) % [place] % (Auto) 7.3 (1.7-12.0) % Eos % (Auto) 3.9 (0.9-7.0) % Baso % (Auto) 0.5 (0.2-2.0) % Neut # (Auto) 6.0 (1.4-6.5) 10^3/uL Lymph # (Auto) 1.2 (1.2-3.8) 10^3/uL [place] # (Auto) 0.6 (0.3-0.8) 10^3/uL Eos # (Auto) 0.3 (0.0-0.7) 10^3/uL Baso # (Auto) 0.0 (0.0-0.1) 10^3/uL Abs Immat Gran (auto) 0.01 (0.00-0.03) 10^3/uL Imm/Tot Granulo (auto) 0.1 (0.0-0.5) % PT 10.7 (9.0-11.6) sec INR 1.01 Sodium 141 (136-145) mmol/L Potassium 3.4 L (3.5-5.1) mmol/L Chloride 101 (98-107) mmol/L Carbon Dioxide 31.7 (21.0-32.0) mmol/L Anion Gap 11.7 BUN 18.0 (7.0-18.0) mg/dL Creatinine 0.73 (0.55-1.02) mg/dL Est GFR ( Amer) >60 (>=60 mL/min/1.73m^2) Est GFR (Non-Af Amer) >60 (>=60 mL/min/1.73m^2) BUN/Creatinine Ratio 24.7 Glucose 93 (74-106) mg/dL Calcium 9.6 (8.5-10.1) mg/dL Total Bilirubin 0.3 (0.2-1.0) mg/dL AST 14 L (15-37) U/L ALT 17 (14-59) U/L Alkaline Phosphatase 86 (46-116) U/L Troponin I High Sens 9.2 (4.0-51.3) pg/mL Total Protein 6.9 (6.4-8.2) g/dL Albumin 3.3 L (3.4-5.0) g/dL Globulin 3.6 g/dL Albumin/Globulin Ratio 0.9 Discharge Plan Discharge Chief Complaint: Eye Problems Clinical Impression: Ischemic stroke, Diplopia Patient Disposition: Admitted As Inpatient Time of Disposition Decision: 15:08
[2024-10-07 12:52] LABS: Hematocrit 41.0 % (36.0-48.0); Hemoglobin 13.3 g/dL (12.0-16.0); Immature Granulocytes Abs Auto 0.01 10^3/uL (0.00-0.03); Immature Granulocytes Pct Auto 0.1 % (0.0-0.5); Lymphocytes Absolute Auto 1.2 10^3/uL (1.2-3.8); Mean Corpuscular HGB Conc 32.4 g/dL (29.9-35.2); Mean Corpuscular Hemoglobin 31.9 pg (26.7-34.0); Mean Corpuscular Volume 98.3 fL (81.0-99.0); Platelet Count 317 10^3/uL (150-450); Red Blood Count 4.17 10^6/uL (4.20-5.40); White Blood Count 8.1 10^3/uL (4.0-11.0)
[2024-10-07 13:02] LABS: INR 1.01; Prothrombin Time 10.7 sec (9.0-11.6)
[2024-10-07 13:07] LABS: Alanine Aminotransferase 17 U/L (14-59); Albumin Globulin Ratio 0.9; Albumin Level 3.3 g/dL (3.4-5.0); Alkaline Phosphatase 86 U/L (46-116); Aspartate Amino Transferase 14 U/L (15-37); Blood Urea Nitrogen 18.0 mg/dL (7.0-18.0); Calcium 9.6 mg/dL (8.5-10.1); Carbon Dioxide 31.7 mmol/L (21.0-32.0); Estimated GFR (African America >60 (>=60 mL/min/1.73m^2); Estimated GFR (Non-African Ame >60 (>=60 mL/min/1.73m^2); Globulin 3.6 g/dL; Glucose 93 mg/dL (74-106); Total Protein 6.9 g/dL (6.4-8.2)
--- NOTE | 2024-10-07 13:08 | PC.NURSE ---
visual acuity completed. per ER Eye chart pt 20/80 left eye, 20/80 right eye and 20/80 both eyes. pt states when both eyes are open she sees 2 eye charts. one chart in front of her and 1 chart off the the left. she also states she only sees 1 chart when covering one eye, either the left or the right. dr. Ramesh notified.
[2024-10-07 13:14] LABS: Anion Gap 11.7; Chloride 101 mmol/L (98-107); Potassium 3.4 mmol/L (3.5-5.1); Sodium 141 mmol/L (136-145)
--- NOTE | 2024-10-07 13:20 | CT_ITS ---
The [address] [address] Patient Name: FANTASMA LEWIS MRN: [id number] date: 1940 Sex: F Assigned Patient Location: ER Current Patient Location: ER Accession/Order Number: [id number] Exam Date: 10/07/2024 13:45 Report Date: 10/07/2024 14:48 At the request of: AGATA RAMIREZ MD Procedure: CT angio neck CT angio head, CT angio neck 10/07/2024 2:07 PM SIGNS AND SYMPTOMS: ^stroke work up CONTRAST: TECHNIQUE: Multi-detector CT angiography axial slices of the head were obtained before and during intravenous administration of IV contrast material. Sagittal, coronal, and 3-D reconstructions were performed and viewed on a separate workstation. CT was performed with one or more of the following dose reduction techniques: Automated exposure control, adjustment of the mA and/or kV according to patient size, or use of iterative reconstruction technique. Stenoses were measured using the NASCET criteria. COMPARISON: None. FINDINGS: CTA HEAD: The superior cerebellar arteries, posterior inferior cerebellar arteries, and the basilar artery are within normal limits. The posterior cerebral arteries are unremarkable with persistent origin on the right. The intracranial segments of the internal carotid arteries are patent. 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 This is unchanged. There are normal anterior and middle cerebral arteries. Anterior communicating artery is patent. The left posterior indicating artery is hypoplastic.. The deep venous system and dural venous systems appear to be patent. No bony abnormalities are appreciated. CTA NECK: There is a normal three-vessel arch. The subclavian arteries are within normal limits. The vertebral arteries arise from the subclavian arteries and are normal in course and caliber up to the skull base. Calcified plaque is noted in the carotid bifurcations without significant stenosis. Limits. Visualized lung parenchyma is clear. Degenerative changes are noted in the cervical spine. No acute bony abnormalities are identified. The paraspinous soft tissues are within normal limits. 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 This is unchanged. No evidence of focal stenosis, dissection, or occlusion. Impression dictated by: Donald Parry M.D. 10/07/2024 2:48 PM Dictation Location: [place] [address] Electronically authenticated by: [id number] Y Date: 10/07/2024 14:48
--- NOTE | 2024-10-07 13:20 | CT_ITS ---
The [address] [address] Patient Name: FANTASMA LEWIS MRN: [id number] date: 1940 Sex: F Assigned Patient Location: ER Current Patient Location: ER Accession/Order Number: [id number] Exam Date: 10/07/2024 13:45 Report Date: 10/07/2024 14:48 At the request of: AGATA RAMIREZ MD Procedure: CT angio neck CT angio head, CT angio neck 10/07/2024 2:07 PM SIGNS AND SYMPTOMS: ^stroke work up CONTRAST: TECHNIQUE: Multi-detector CT angiography axial slices of the head were obtained before and during intravenous administration of IV contrast material. Sagittal, coronal, and 3-D reconstructions were performed and viewed on a separate workstation. CT was performed with one or more of the following dose reduction techniques: Automated exposure control, adjustment of the mA and/or kV according to patient size, or use of iterative reconstruction technique. Stenoses were measured using the NASCET criteria. COMPARISON: None. FINDINGS: CTA HEAD: The superior cerebellar arteries, posterior inferior cerebellar arteries, and the basilar artery are within normal limits. The posterior cerebral arteries are unremarkable with persistent origin on the right. The intracranial segments of the internal carotid arteries are patent. 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 This is unchanged. There are normal anterior and middle cerebral arteries. Anterior communicating artery is patent. The left posterior indicating artery is hypoplastic.. The deep venous system and dural venous systems appear to be patent. No bony abnormalities are appreciated. CTA NECK: There is a normal three-vessel arch. The subclavian arteries are within normal limits. The vertebral arteries arise from the subclavian arteries and are normal in course and caliber up to the skull base. Calcified plaque is noted in the carotid bifurcations without significant stenosis. Limits. Visualized lung parenchyma is clear. Degenerative changes are noted in the cervical spine. No acute bony abnormalities are identified. The paraspinous soft tissues are within normal limits. 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 This is unchanged. No evidence of focal stenosis, dissection, or occlusion. Impression dictated by: Donald Parry M.D. 10/07/2024 2:48 PM Dictation Location: [place] [address] Electronically authenticated by: [id number] Y Date: 10/07/2024 14:48
[2024-10-07] MEDS: ASPIRIN 81 MG TAB.CHEW PO (13:30)
--- OUTSIDE RECORDS SUMMARY | 2024-10-07 16:34 | XMS_ITS | CCD ---
Author Organization [facility] Care Team Providers Care Site Safety Coordinator Name Role Phone Roney Leroy Primary Care [...] Provider Roney Leroy DO Primary Care Provider [phone] AFSHIN ROCHA Attending Unavailable RONEY LEROY Primary Care Unavailable Roney Leroy DO Primary Care Provider Emanuel AGUAYO, Marifer Gauthier Unavailable Gunner Hidalgo DO Unavailable Chalo Menjivar MD Unavailable Roney Leroy DO Primary Care Provider DO Roney Leroy Primary Care Provider [phone] DO Gunner Hidalgo Referring Provider CANDY Siddiqui Attending Provider Mounika Dick DO Primary Care Provider [phone] Meir Morrissey MD Unavailable Silvia Bianchi Attending Unavailable Noe LOZA Admitting Unavailable Noe LOZA Attending Unavailable Roney Leroy DO Primary Care Provider Gunner Hidalgo DO Referring Provider Elsa Siddiqui APRN Attending Provider Sade Garcia APRN Attending Provider Meir Morrissey MD Unavailable Roney Leroy DO Primary Care Provider [phone] MOUNIKA DICK Attending Unavailable MAYELIN, MOUNIKA L [...] Attending Provider Gunner Hidalgo DO Referring Provider Elsa Siddiqui APRN Attending Provider Elsa Siddiqui Attending Unavail able Gunner Hidalgo Referring Unavailable Roney Leroy Primary Care Unavailable Elsa Siddiqui Admitting Unavail able MAMMMartín, BRANDO A Attending Unavailable HUNG, BRANDO A Referring Unavailable RONEY LEROY Primary Care Unavailable RONEY LEROY Primary Care Unavailable CHALO MENJIVAR Referring Unavailable RONEY LEROY Primary Care Unavailable OTTOCHALO Castillo Referring [...] INE] Drug Allergy 06-28-2020 Other: See Comments [facility] Work Phone: Medications Current Medications Medication Drug Class(es) Dates Sig (Normalized) Sig (Original) acetaminophen 500 mg oral tablet (20 sources) Start: 03-17-2016 take 2 tablets by mouth three times daily acetaminophen (TYLENOL) 500 mg tablet Take 2 tablets by mouth three times daily. 03/17/2016 Active Start: 03-17-2016 take 2 tablets by mo [facility] every six hours as needed acetaminophen (Tylenol) 500 mg tablet Take 2 tablets (1,000 mg) by mouth every 6 hours if needed. 0 03/17/2016 Active Comment on above: Take 2 tablets by mo [facility] three times daily. [id number] 200 actuat albuterol 0.09 mg/actuat metered dose [...] the event of a Fluress shortage, administer [place]-Fluor 1 drop into both eyes as directed [...] 0 02/26/2015 Active take 1 capsule by [facility] once daily cholecalciferol (Vitamin D-3) 50 MCG (1999 UT) capsule Take 2,000 Units by mouth Daily Active Comment on above: Take 2 tablets by [facility] once daily. Cholecalciferol (Vitamin D3) (Vitamin D3) 4,000 unit Capsule (7 sources) Start: 11-03-19 take 1 capsule by mouth once daily Cholecalciferol (Vitamin D3) (Vitamin D3) 4,000 unit Capsule Active 4000 UNIT PO Daily November 02, 2018 12:00am Complies with drug therapy Start: 11-02-2018 take 1 capsule by [facility] once daily Cholecalciferol (Vitamin D3) (Vitamin D3) [...] / neomycin 3.5 mg/ml / polymyxin b 35649 unt/ml ophthalmic suspension (8 sources) Aminoglycoside Antibacterial, [...] Apply 1/2 inch ribbon per application Hyaluronic Kt-Glzfzfmde-Semu (1 source) Start: 09-22-2018 Hyaluronic Kd-Idsxokojf-Eaqr Active 1 APPLIC Topical Three times daily [...] on above: Take 3,000 mcg by mo [facility] once daily. Vitamin D (2 sources) Start: [...] hours as needed for pain Hydrocodone-Acetami nophen (Yreka) 5-325 mg tablet Discontinued 1 - 2 TAB PO EVERY 4-6 HOURS as needed for pain 14 3 September 06, 2018 November 01, 2018 2:18pm Start: 08-02-2018 End: 08-15-2018 take 1 tablet by mouth every four to six hours as needed for pain Hydrocodone-Acetaminophen (Yreka) 5-325 mg tablet Discontinued 1 - 2 TAB PO EVERY 4-6 HOURS as needed for pain 10 3 August 02, 2018 August 15, 2018 9:09am Start: 11-07-2016 End: 07-26-2018 take 1 tablet by mouth every four hours Hydrocodone-Acetaminophen (Yreka) 5-325 mg tablet Discontinued 1 TAB PO [...] End: 10-27-2023 ergocalciferol (Vitamin D2) 1.25 MG (66081 UT) capsule TAKE 1 CAPSULE TWICE A [...] cap.. 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] Results Test Name Value Interpretation Reference Range [facility] AVASTIN (BEVACIZUMAB) 1.25MG INTRAVITREAL INJECTION OD (RIGHT EYE)on 10-05-2024 [facility] AVASTIN (BEVACIZUMAB) 1.25MG INTRAVITREAL INJECTION OS (LEFT EYE)on 10-05-2024 [facility] FUNDUS AUTOFLUORESCENCE PHOT O (FAF) OU (BOTH EYES)on 10-05-2024 [facility] Radiology Study observation (narrative) [facility] OCT MACULA CIRRUS OU (BOTH E YES)on 10-05-2024 [facility] Radiology Study observation (narrative) [facility] CNPChiquis 09-14-2024 BARRIEN Telephone (TIFFANY) FANTASMA LEWIS ([id number]) 1940 F Date Time Provider Department 09/14/24 CHALO MENJIVAR During your visit today, we recorded the following information about you: Felicia Perry LPN 09/14/2024 10:11 AM Signed Received Bone density report form [facility]. Results placed on your desk for review. Chalo Menjivar MD 09/15/2024 6:48 AM Signed Please Call patient if MyChart note not read to review results/released to My Chart if tests completed at [facility]: Bone mineral density shows osteopenia/improved spine and left hip/mildly decreased left forearm- will monitor. Happy to further review and discuss at follow up visit. Thank you. 09/13/24 eye exam 09/05/24 [facility] bmd osteopenia/improved spine and left hip/mildly decreased [...] Assessed Reason for Visit: Results [95] Cmt: [facility] Prescriptions as of 09/15/2024 - antiox #8/om3/dha/epa/lut/leonidas [...] (posterior cap (more content not included)... Normal [facility] CNNURSEon 09-04-2024 CNNURSE Nurse Visit (TIFFANY) FANTASMA LEWIS ([id number]) 1940 F Date Time Provider Department 09/04/24 2:00 PM NURSE LUCRECIA [facility] NALINI ALLEN During your visit today, we [...] Encounter Status:Closed by FELICIA PERRY on 09/04/24 [facility] CNPNon 08-28-2024 CNPN Telephone (RHEULN) FANTASMA LEWIS ([id number]) 1940 F Date Time Provider Department 08/28/24 [...] Status:Closed by CHALO MENJIVAR on 08/28/24 Normal [facility] ([id number]) 1940 F Date Time Provider Department 08/17/24 CHALO MENJIVAR During your visit today, we recorded the following information about you: Chalo Menjivar MD 08/17/2024 2:41 PM Signed Please Call patient if Fanchimp note not read to review results/released to [...] RN 08/21/2024 8:14 AM Signed Pt read [employer] message. Allergies As of Date: 08/17/2024 Noted [...] Status:Closed by JOSEFINA NAVA on 08/21/24 Normal [facility] 25(OH)D3 [facility]-ncon 2024 25-hydroxyvitamin D3 [Mass/Vol] 45.8 ng/mL Normal 31.0-80.0 [facility] Comment on above: Order Comment: Speci men Type: BLOOD SPECIMENOrdering Facility: [facility] Address: [address] [place] [address] Result Comment: Clas sification of 25 [place] Vitamin D status: Deficiency/Insufficiency: < or = 30 ng/ml. Sufficiency/Optimal Levels: 31-80 ng/mL Toxicity: > 100 ng/mL. Test performed by chemiluminescent immunoassay. Performed By: #### 1 989-3 ####[facility] LABCLIA [id number] [address] [facility] Calcium [Mass/Vol] 10.1 mg/dL 8.5 - 10. 2 mg/dL [facility] Specimen Type: BLOOD SPECIMEN Ordering Facility: [facility] Address: [address] [place] [address] Original Ordering Provider: CHALO MOY [facility] 025 Calcium [Mass/Vol] 10.1 mg/dL Normal 8.5-10.2 [facility] Comment on above: Order Comment: Juan men Type: BLOOD SPECIMENOrdering Facility: [facility] Address: [address] [place] [address] Performed By: #### 1 7861-6 ####[facility] LABCLIA [id number] [place] [address] Trudy 08-10-2024 DERICK Telephone (TIFFANY) FANTASMA LEWIS ([id number]) 1940 F Date Time Provider Department 08/10/24 CHALO MENJIVAR During your visit today, we recorded the following information about you: Akhil EddieSwathi 08/10/2024 9:38 AM Signed Pt requesting to schedule next prolia injection. Patient has been identified by name and birthdate. Duration of symptoms: N/A Person calling: self Call patient at: on cell [phone] (home) [phone] (cell) Was an appointment scheduled: No Closing statement: Results or non-symptom based questions: Thank you for calling [facility], your call will be returned within [...] up with her on cell phone at [phone] per her request. Please review and reach [...] Fully Assessed Reason for Visit: Patient Question [0237] Appointment [186] Prescriptions as of 08/10/2024 - [...] edema [R60.0] (more content not included)... Normal [facility] MM screening mammo BI w/CADo n 06-26-2024 MM screening mammo BI w/CAD [facility] [address] [place] [address] Mammography Report Signed Patient: Fantasma Lewis MR#: [id number] : 1940 Acct:[id number] Age/Sex: 84 / F Adm Date: 06/26/24 Loc: Room: Type: [facility] Attending Dr: Elsa Siddiqui EARTH SCIENCE TEACHER Ordering Provider: Elsa Siddiqui APRN Date of Service: 06/26/24 Procedure(s): MM screening mammo BI w/CAD Accession Number(s): ([id number]) MM/MM screening mammo BI w/CAD: D05.11 - [...] Quispe M.D. 06/26/2024 10:53 AM Dictation Location: [facility] Dictated By: Maynor Quispe MD 06/26/24 1037 Signed By: 06/26/24 1053 [facility] XR Abdomen 1 Viewon [...] MD Transcribed by: MARY Technologist: KIERA Hernandez [facility] Urology Office/Clinic Noteon 04-18-2024 Urology [...] with voice recognition artificial intelligence software, specifically Vizury, Producteev and or WHObyYOU. Substitutions may have occurred due to the [...] to Help Prevent Kidney Stones Kidney Stones, Dcnv-cq-Mupt Problem List/Past Medical History Ongoing Arthritis Epididymitis [...] Immunizations Vaccine Date Status Comments SARS-CoV-2 (COVID-19) mRNAMUL.ORD![id number] 01/23/2022 Recorded influenza virus vaccine, inactivated 12/19/2021 Recorded SARS-CoV-2 (COVID-19) mRNA BNT-162b2 vax 12/25/2020 Recorded SARS-CoV-2 (COVID-19) mRNA BNT-162b2 vax 03/29/2020 Recorded 2021-11-18: [id number] SARS-CoV-2 (COVID-19) mRNA-1273 vaccine 03/2020 Recorded SARS-CoV-2 (COVID-19) mRNA BNT-162b2 vax 03/08/2020 Re (more content not included)... Normal [facility] Comment on above: Result Comment: Elec tronically Signed By: ALLYN Bianchi APRN, [place] X\.br\Date and Time Signed: 04/18/24 13:57 EDT AVASTIN (BEVACIZUMAB) 1.25MG INTRAVITREAL INJECTION OD (RIGHT EYE)on 04-06-2024 [facility] AVASTIN (BEVACIZUMAB) 1.25MG INTRAVITREAL INJECTION OS (LEFT EYE)on 04-06-2024 [facility] OCT MACULA CIRRUS OU (BOTH E YES)on 04-06-2024 [facility] Radiology Study observation (narrative) Taylor Khan [...] signed and approved by the interpreting Radiologist. [facility] XR Shoulder - right 2 Viewso n [...] signed and approved by the interpreting Radiologist. [employer] XR Shoulder - right 2 ViewsO rdered By: Fernando Keita on 2024 [employer] Work Phone: No Panel Informationon 03-08 Radiology Study observation (narrative) [facility] XR HIP 2 OR 3 VW [...] 03-06-2024 CNNURSE Nurse Visit (TIFFANY) FANTASMA LEWIS ([id number]) 1940 F Date Time Provider Department 03/06/24 11:30 AM NURSE LUCRECIA [facility] NALINI ALLEN During your visit today, we [...] Status:Closed by FELICIA PERRY on 03/06/[address] 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 2024 25-hydroxyvitamin D3 [Mass/Vol] 47.1 ng/mL Normal 31.0-80.0 [facility] Comment on above: Order Comment: Speci men Type: BLOOD SPECIMENOrdering Facility: [facility] Address: [address] [place] [address] Result Comment: Clas sification of 25 [place] Vitamin D status: Deficiency/Insufficiency: < or = 30 ng/ml. Sufficiency/Optimal Levels: 31-80 ng/mL Toxicity: > 100 ng/mL. Test performed by chemiluminescent immunoassay. Performed By: #### 1 989-3 ####[facility] LABCLIA [id number] [address] OF [facility] CBC panel Auto (Bld)on 03-02 Erythrocyte distribution width (RBC) [Ratio] 13.1 % Normal 11.5-15.0 [facility] Comment on above: Order Comment: Speci men Type: BLOOD SPECIMENOrdering Facility: [facility] Address: [address] [place] [address] Performed By: #### 5 8410-2 ####[facility] LABCLIA [id number] [place] [address] Hematocrit (Bld) [Volume fraction] 41.9 % Normal 36.0-46.0 [facility] Comment on above: Order Comment: Speci men Type: BLOOD SPECIMENOrdering Facility: [facility] Address: [address] [place] [address] Performed By: #### 5 8410-2 ####[facility] LABCLIA [id number] [place] [address] Hemoglobin (Bld) [Mass/Vol] 13.5 g/dL Normal 11.5-15.5 [facility] Comment on above: Order Comment: Speci men Type: BLOOD SPECIMENOrdering Facility: [facility] Address: [address] [place] [address] Performed By: #### 5 8410-2 ####[facility] LABCLIA [id number] [place] [address] MCH (RBC) [Entitic mass] 31.5 pg Normal 26.0-34.0 [facility] Comment on above: Order Comment: Speci men Type: BLOOD SPECIMENOrdering Facility: [facility] Address: [address] [place] [address] Performed By: #### 5 8410-2 ####[facility] LABCLIA [id number] [place] [address] MCHC (RBC) [Mass/Vol] 32.2 g/dL Normal 30.5-36.0 [facility] Comment on above: Order Comment: Speci men Type: BLOOD SPECIMENOrdering Facility: [facility] Address: [address] [place] [address] Performed By: #### 5 8410-2 ####[facility] LABCLIA [id number] [place] [address] MCV (RBC) [Entitic vol] 97.7 fL Normal 80.0-100.0 [facility] Comment on above: Order Comment: Speci men Type: BLOOD SPECIMENOrdering Facility: [facility] Address: [address] [place] [address] Performed By: #### 5 8410-2 ####[facility] LABCLIA [id number] [place] [address] Nucleated RBC (Bld) [#/Vol] 10*3/uL Normal <0.01 [facility] Comment on above: Order Comment: Speci men Type: BLOOD SPECIMENOrdering Facility: [facility] Address: [address] [place] [address] Performed By: #### 5 8410-2 ####[facility] LABIA [id number] [place] [address] Platelet mean volume (Bld) [Entitic vol] 9.7 fL Normal 9.0-12.7 [facility] Comment on above: Order Comment: Speci men Type: BLOOD SPECIMENOrdering Facility: [facility] Address: [address] [place] [address] Performed By: #### 5 8410-2 ####[facility] LABCLIA [id number] [place] [address] Platelets (Bld) [#/Vol] 349 10*3/uL Normal 150-400 [facility] Comment on above: Order Comment: Speci men Type: BLOOD SPECIMENOrdering Facility: [facility] Address: [address] [place] [address] Performed By: #### 5 8410-2 ####[facility] LABCLIA [id number] [place] [address] RBC (Bld) [#/Vol] 4.29 10*6/uL Normal 3.90-5.20 [facility] Comment on above: Order Comment: Speci men Type: BLOOD SPECIMENOrdering Facility: [facility] Address: [address] [place] [address] Performed By: #### 5 8410-2 ####[facility] LABIA [id number] [place] [address] WBC (Bld) [#/Vol] 8.78 10*3/uL Normal 3.70-11.00 [facility] Comment on above: Order Comment: Speci men Type: BLOOD SPECIMENOrdering Facility: [facility] Address: [address] [place] [address] Performed By: #### 5 8410-2 ####[facility] LABIA [id number] [place] [address] [facility] CBC PNL BLD AUTOon 03-02 [facility] NRBC # BLD AUTO <0.01 NINF [facility] PLATELET # BLD AUTO [address] [facility] PMV BLD AUTO 9.7 fL 9.0 - 12.7 fL [facility] WBC # BLD AUTO 8.78 [facility] Erythrocyte distribution width (RBC) [Ratio] 13.1 % 11.5 - 15.0 % [facility] Hematocrit (Bld) [Volume fraction] 41.9 % 36.0 - 46.0 % [facility] Hemoglobin (Bld) [Mass/Vol] 13.5 g/dL 11.5 - 15.5 g/dL [facility] MCH (RBC) [Entitic mass] 31.5 pg 26.0 - 34.0 pg [facility] MCHC (RBC) [Mass/Vol] 32.2 g/dL 30.5 - 36.0 g/dL [facility] MCV (RBC) [Entitic vol] 97.7 fL 80.0 - 100.0 fL [facility] RBC (Bld) [#/Vol] 4.29 10*6/uL 3.90 - 5.2 0 m/uL [facility] Specimen Type: BLOOD SPECIMEN [facility] Address: [address] [place] [address] Original Ordering Provider: CHALO MOY [facility] CRP SerPl-mCncon 03-02-2024 CRP [Mass/Vol] 0.3 mg/dL Normal <0.9 [facility] Comment on above: Order Comment: Speci men Type: BLOOD SPECIMENOrdering Facility: [facility] Address: [address] [place] [address] Performed By: #### 1 988-5 ####[facility] LABCLIA [id number] [place] [address] [facility] Comprehensive metabolic 2000 panelon 03-02-2024 Albumin [Mass/Vol] 4.3 g/dL Normal 3.9-4.9 [facility] Comment on above: Order Comment: Speci men Type: BLOOD SPECIMENOrdering Facility: [facility] Address: [address] [place] [address] Performed By: #### 3 084-1, 44349-7 ####[facility] LABCLIA [id number] [place] [address] ALP [Catalytic activity/Vol] 85 U/L Normal 34-123 [facility] Comment on above: Order Comment: Speci men Type: BLOOD SPECIMENOrdering Facility: [facility] Address: [address] [place] [address] Performed By: #### 3 084-1, 06467-0 ####[facility] LABCLIA [id number] [place] [address] ALT [Catalytic activity/Vol] 5 U/L Low 7-38 [facility] Comment on above: Order Comment: Speci men Type: BLOOD SPECIMENOrdering Facility: [facility] Address: [address] [place] [address] Performed By: #### 3 084-1, ####[facility] LABCLIA [id number] [place] [address] Anion gap [Moles/Vol] 10 mmol/L Normal 8-15 [facility] Comment on above: Order Comment: Speci men Type: BLOOD SPECIMENOrdering Facility: [facility] Address: [address] [place] [address] Performed By: #### 3 084-1, ####[facility] LABCLIA [id number] [place] [address] AST [Catalytic activity/Vol] 10 U/L Low 13-35 [facility] Comment on above: Order Comment: Speci men Type: BLOOD SPECIMENOrdering Facility: [facility] Address: [address] [place] [address] Performed By: #### 3 084-1, ####[facility] LABCLIA [id number] [place] [address] Bilirubin [Mass/Vol] 0.3 mg/dL Normal 0.2-1.3 [facility] Comment on above: Order Comment: Speci men Type: BLOOD SPECIMENOrdering Facility: [facility] Address: [address] [place] [address] Performed By: #### 3 084-1, ####[facility] LABCLIA [id number] [place] [address] Calcium [Mass/Vol] 10.3 mg/dL High 8.5-10.2 [facility] Comment on above: Order Comment: Speci men Type: BLOOD SPECIMENOrdering Facility: [facility] Address: [address] [place] [address] Performed By: #### 3 084-1, 67158-6 ####[facility] LABCLIA [id number] [place] [address] Chloride [Moles/Vol] 98 mmol/L Normal 98-107 [facility] Comment on above: Order Comment: Speci men Type: BLOOD SPECIMENOrdering Facility: [facility] Address: [address] [place] [address] Performed By: #### 3 084-1, 03146-9 ####[facility] LABCLIA [id number] [place] [address] CO2 [Moles/Vol] 32 mmol/L High 22-30 [facility] Comment on above: Order Comment: Speci men Type: BLOOD SPECIMENOrdering Facility: [facility] Address: [address] [place] [address] Performed By: #### 3 084-1, 96163-3 ####[facility] LABCLIA [id number] [place] [address] Creatinine [Mass/Vol] 0.85 mg/dL Normal 0.58-0.96 [facility] Comment on above: Order Comment: Speci men Type: BLOOD SPECIMENOrdering Facility: [facility] Address: [address] [place] [address] Performed By: #### 3 084-1, 82785-7 ####[facility] LABCLIA [id number] [place] [address] Creatinine and Glomerular filtration rate.predicted panel (S/P/Bld) 69 mL/min/1.73m??? Normal >=60 [facility] Comment on above: Order Comment: Speci men Type: BLOOD SPECIMENOrdering Facility: [facility] Address: [address] [place] [address] Result Comment: Sondra mated Glomerular Filtration Rate [...] actual GFR. Performed By: #### 3 084-1, 69820-4 ####[facility] LABCLIA [id number] [place] [address] Glucose [Mass/Vol] 94 mg/dL Normal 74-99 [facility] Comment on above: Order Comment: Juan mondragon Type: BLOOD SPECIMENOrdering Facility: [facility] Address: [address] [place] [address] Result Comment: The [place] Diabetes Association (ADA) provides guidance for cutoff [...] Standards of Medical Care in Diabetes 2016, [place] Diabetes Association. Diabetes Care. 2016.39(Suppl 1). Performed By: #### 3 084-1, 83559-2 ####[facility] LABCLIA [id number] [place] [address] Potassium [Moles/Vol] 4.0 mmol/L Normal 3.7-5.1 [facility] Comment on above: Order Comment: Juan mondragon Type: BLOOD SPECIMENOrdering Facility: [facility] Address: [address] [id number] Performed By: #### 3 084-1, 83093-3 ####[facility] LABCLIA [id number] [place] [address] Protein [Mass/Vol] 6.5 g/dL Normal 6.3-8.0 [facility] Comment on above: Order Comment: Speci men Type: BLOOD SPECIMENOrdering Facility: [facility] Address: [address] [place] [address] Performed By: #### 3 084-1, 14302-4 ####[facility] LABCLIA [id number] [place] [address] Sodium [Moles/Vol] 140 mmol/L Normal 136-144 [facility] Comment on above: Order Comment: Speci men Type: BLOOD SPECIMENOrdering Facility: [facility] Address: [address] [place] [address] Performed By: #### 3 084-1, 20614-3 ####[facility] LABCLIA [id number] [place] [address] Urea nitrogen [Mass/Vol] 14 mg/dL Normal 7-21 [facility] Comment on above: Order Comment: Speci men Type: BLOOD SPECIMENOrdering Facility: [facility] Address: [address] [place] [address] Performed By: #### 3 084-1, 98239-2 ####[facility] LABCLIA [id number] [place] [address] ESR Westergren method (Bld) [Velocity]on 03-02-2024 ESR (Bld) [Velocity] 13 mm/h Normal 0-20 [facility] Comment on above: Order Comment: Speci men Type: BLOOD SPECIMENOrdering Facility: [facility] Address: [address] [place] [address] Performed By: #### 4 537-7 ####[facility] LABCLIA [id number] [place] [address] [place] Urate SerPl-mCncon Urate [Mass/Vol] 3.7 mg/dL Normal 2.5-6.6 [facility] Comment on above: Order Comment: Speci men Type: BLOOD SPECIMENOrdering Facility: [facility] Address: [address] [place] [address] Performed By: #### 3 084-1, 18525-2 ####[facility] LABCLIA [id number] [place] [address] No Panel Informationon 01-26 ACINETOBACTER BAUMANII 0 [...] Negative [facility] Glucose [Mass/Vol] Negative Negative [facility] Ketones Ql (U) Negative Negative [facility] pH (U) 6 [pH] 5.0 - 6.0 [facility] Specific gravity (U) [Rel density] 1.005 1.001 - 1.035 [facility] Urobilinogen (U) [Mass/Vol] 0.2 mg/dL 0.2 - 1.0 [facility] Laboratory - Hematology and Cell countson 01-26-2024 Hemoglobin Ql (U) Negative Negative [facility] Laboratory - Urinalysison Nitrite Ql (U) Negative Negative [facility] Protein Ql (U) Negative Negative [facility] No Panel Informationon 01-25 Interpretation and review of laboratory results Abnormal [facility] LEUKOCYTES 3+ Negative [facility] AVASTIN (BEVACIZUMAB) 1.25MG INTRAVITREAL INJECTION OD (RIGHT EYE)on 01-20-2024 [facility] AVASTIN (BEVACIZUMAB) 1.25MG INTRAVITREAL INJECTION OS (LEFT EYE)on 01-20-2024 [facility] OCT MACULA CIRRUS OU (BOTH E YES)on 01-20-2024 [facility] Radiology Study observation (narrative) [facility] Laboratory - Microbiology an d Antimicrobial susceptibilityon 01-12-2024 SARS-CoV-2 (COVID-19) RNA LYDIA+probe Ql (Unsp spec) Negative [facility] No Panel Informationon 01-11 FLU A Negative [facility] FLU B Negative [facility] Interpretation and review of laboratory results Normal [facility] CNOVon 11-29-2023 CNOV Office Visit (TIFFANY ) FANTASMA LEWIS ([id number]) 1940 F Date Time Provider Department 11/29/23 [...] 137;normal cbc, cmp, esr 5, crp 0.4; [facility] bmd osteopenia/stable BONE MINERAL DENSITY PATIENT [...] weekly fosa (more content not included)... Normal [facility] AVASTIN (BEVACIZUMAB) 1.25MG INTRAVITREAL INJECTION OD (RIGHT EYE)on 11-11-2023 [facility] AVASTIN (BEVACIZUMAB) 1.25MG INTRAVITREAL INJECTION OS (LEFT EYE)on 11-11-2023 [facility] OCT MACULA CIRRUS OU (BOTH E YES)on 11-11-2023 [facility] Radiology Study observation (narrative) [facility] C. DIFFICILE PCRon C. DIFFICILE PCR Negative NEGATIVE [facility], ROUTINEon Bacteria identified Cx Nom (U) Urine Culture, Routine [facility] Bacteria identified Cx Nom (U) Mixed urogenital nola [facility] Bacteria identified Cx Nom (U) Less than 10,000 colonies/mL [facility] Bacteria identified Cx Nom (U) [facility] Bacteria identified Cx Nom (U) [address], [place] [id number] [facility] Bacteria identified Cx Nom (U) Compensation Associate: Kev Choi PhD, Phone: [phone] [facility] - Chemistry and C hemistry - challengeon 10-27-2023 Bilirubin Ql (U) Negative [facility] Glucose [Mass/Vol] Negative [facility] Ketones Ql (U) Negative [facility] pH (U) 6.0 [pH] [facility] Specific gravity (U) [Rel density] 1.015 [...] - challengeon 10-18-2023 Bilirubin Ql (U) Negative [facility] Glucose [Mass/Vol] Negative [facility] Ketones Ql (U) Negative [facility] pH (U) 6.0 [pH] [facility] Specific gravity (U) [Rel density] 1.020 [facility] Urobilinogen (U) [Mass/Vol] 0.5350035 mg/dL [facility] Laboratory - Hematology and Cell countson 10-18-2023 Hemoglobin Ql (U) Negative [facility] Laboratory - Urinalysison Nitrite Ql (U) Negative [facility] Protein Ql (U) Negative [facility] No Panel Informationon 10-17 Interpretation and review of laboratory results Abnormal [facility] LEUKOCYTES 1+ [facility] AVASTIN (BEVACIZUMAB) 1.25MG INTRAVITREAL INJECTION OD (RIGHT EYE)on 09-16-2023 [facility] AVASTIN (BEVACIZUMAB) 1.25MG INTRAVITREAL INJECTION OS (LEFT EYE)on 09-16-2023 [facility] OCT MACULA CIRRUS OU (BOTH E YES)on 09-16-2023 [facility] Radiology Study observation (narrative) [facility] AVASTIN (BEVACIZUMAB) 1.25MG INTRAVITREAL INJECTION OD (RIGHT EYE)on 08-05-2023 [facility] AVASTIN (BEVACIZUMAB) 1.25MG INTRAVITREAL INJECTION OS (LEFT EYE)on 08-05-2023 [facility] OCT MACULA CIRRUS OU (BOTH E YES)on 08-05-2023 [facility] Radiology Study observation (narrative) [facility] AVASTIN (BEVACIZUMAB) 1.25MG INTRAVITREAL INJECTION OD (RIGHT EYE)on 07-01-2023 [facility] AVASTIN (BEVACIZUMAB) 1.25MG INTRAVITREAL INJECTION OS (LEFT EYE)on 07-01-2023 [facility] OCT MACULA CIRRUS OU (BOTH E YES)on 07-01-2023 [facility] Radiology Study observation (narrative) [facility] AVASTIN (BEVACIZUMAB) 1.25MG INTRAVITREAL INJECTION OD (RIGHT EYE)on 06-03-2023 [facility] AVASTIN (BEVACIZUMAB) 1.25MG INTRAVITREAL INJECTION OS (LEFT EYE)on 06-03-2023 [facility] OCT MACULA CIRRUS OU (BOTH E YES)on 06-03-2023 [facility] Radiology Study observation (narrative) [facility] ECG 12 Leadon 12-08-2022 Normal sinus rhythm Normal EKG QTc 425 ms [facility] Work Phone: Alanine aminotransferase [En zymatic activity/volume] in Serum or PlasmaOrdered By: Prasanth Bai on 09-02-2022 ALT [Catalytic activity/Vol] 7 U/L 7-52 [facility] Albumin [Mass/volume] in Ser um or Plasma by Bromocresol green (BCG) dye binding methoOrdered By: Prasanth Bai on 09-02-2022 Albumin BCG dye [Mass/Vol] 4.2 g/dL 3.5-5.7 [facility] Alkaline phosphatase [Enzyma tic activity/volume] in Serum or PlasmaOrdered By: Prasanth Bai on 09-02-2022 ALP [Catalytic activity/Vol] 83 U/L 34-104 [facility] Aspartate aminotransferase [ Enzymatic activity/volume] in Serum or PlasmaOrdered By: Prasanth Bai on 09-02-2022 AST [Catalytic activity/Vol] 13 U/L 13-39 [facility] Bilirubin.total [Mass/volume ] in Serum or PlasmaOrdered By: Prasanth Bai on 09-02-2022 Bilirubin [Mass/Vol] 0.5 mg/dL 0.3-1.0 [facility] Calcium [Mass/volume] in Ser um or PlasmaOrdered By: Prasanth Bai on 09-02-2022 Calcium [Mass/Vol] 9.5 mg/dL 8.6-10.3 [facility] Carbon dioxide, total [Moles /volume] in Serum or PlasmaOrdered By: Prasanth Gomez on 09-02-2022 CO2 [Moles/Vol] 35.0 mmol/L High 21.0-31.0 [facility] Chloride [Moles/volume] in S yvonne or PlasmaOrdered By: Prasanth Bai on 09-02-2022 Chloride [Moles/Vol] 99 mmol/L 98-107 [facility] Creatinine [Mass/volume] in Serum or PlasmaOrdered By: Prasanth Bai on 09-02-2022 Creatinine [Mass/Vol] 0.83 mg/dL 0.60-1.20 [facility] Globulin Calc (S) [Mass/Vol] Ordered By: Prasanth Bai on 09-02-2022 Globulin (S) [Mass/Vol] 2.2 g/dL [facility] Glucose [Mass/volume] in Ser um or PlasmaOrdered By: Prasanth Bai on 09-02-2022 Glucose [Mass/Vol] 77 mg/dL 70-100 [facility] Comment on above: ADA recommended refe rence rangeRandom Glucose Reference Range is dependent on time and content of last meal. Glucose of more than 200 mg/dL in a nonstressed, ambulatory subject supports the diagnosis of Diabetes Mellitus. No Panel InformationOrdered By: Prasanth Bai on 09-02-2022 Estimated GFR (CKD-EPI) > 60.0 mL/Min [facility] Creatinine Clearance (Chem 50.38 [facility] Potassium [Moles/volume] in Serum or PlasmaOrdered By: Prasanth Bai on 09-02-2022 Potassium [Moles/Vol] 4.2 mmol/L 3.5-5.1 [facility] Protein [Mass/volume] in Ser um or PlasmaOrdered By: Prasanth Bai on 09-02-2022 Protein [Mass/Vol] 6.4 g/dL 6.4-8.9 [facility] Serum or plasma albumin/glob ulin mass ratioOrdered By: Prasanth Bai on 09-02-2022 Albumin/Globulin [Mass ratio] 1.9 {ratio} [facility] Serum or plasma anion gap de terminationOrdered By: Prasanth Bai on 09-02-2022 Anion gap [Moles/Vol] 10.2 mmol/L 6.0-15.0 [facility] Sodium [Moles/volume] in Ser um or PlasmaOrdered By: Prasanth Bai on 09-02-2022 Sodium [Moles/Vol] 140 mmol/L 136-145 [facility] Urea nitrogen [Mass/volume] in Serum or PlasmaOrdered By: Prasanth Bai on 09-02-2022 Urea nitrogen [Mass/Vol] 20 mg/dL 09-01 [facility] CULTURE URINEon 12-05-2021 CULTURE URINE Culture Observations : GREATER THAN TWO ORGANISMS PRESENT. PLEASE RESUBMIT CLEAN CATCH MID-STREAM URINE IF CLINICALLY INDICATED. Normal [facility] Comment on above: Performed By: #### U RCX #### [facility] [address] [place] [address] Dr. Nataly Lara CBC AUTO DIFFon 12-03-2021 BASO # 0.1 103/ul Normal 0.0-0.1 [facility] Comment on above: Performed By: #### C BC #### [facility] [address] [place] [address] Dr. Nataly Lara Basophils/100 WBC (Bld) 0.5 % Normal 0.2-2.0 [facility] Comment on above: Performed By: #### C BC #### [facility] [address] [place] [address] Dr. Nataly Lara EO # 0.2 103/ul Normal 0.0-0.7 [facility] Comment on above: Performed By: #### C BC #### [facility] [address] [place] [address] Dr. Nataly Lara Eosinophils/100 WBC (Bld) 1.9 % Normal 0.9-7.0 [facility] Comment on above: Performed By: #### C BC #### [facility] [address] [place] [address] Dr. Nataly Lara Erythrocyte distribution width (RBC) [Ratio] 12.5 % Normal 11.0-15.0 [facility] Comment on above: Performed By: #### C BC #### [facility] [address] [place] [address] Dr. Nataly Lara Hematocrit (Bld) [Volume fraction] 41.8 % Normal 36.0-48.0 [facility] Comment on above: Performed By: #### C BC #### [facility] [address] [place] [address] Dr. Nataly Lara Hemoglobin (Bld) [Mass/Vol] 13.7 g/dL Normal 12.0-16.0 [facility] Comment on above: Performed By: #### C BC #### [facility] [address] [place] [address] Dr. Nataly Lara IG # 0.04 10e3/ul Critically high 0.00-0.03 [facility] Comment on above: Performed By: #### C BC #### [facility] [address] [place] [address] Dr. Nataly Lara IG % 0.3 % Normal 0.0-0.5 [facility] Comment on above: Performed By: #### C BC #### [facility] [address] [place] [address] Dr. Nataly Lara LYMPH # 1.4 103/ul Normal 1.2-3.8 [facility] Comment on above: Performed By: #### C BC #### [facility] [address] [place] [address] Dr. Nataly Lara Lymphocytes/100 WBC (Bld) 11.4 % Critically low 20.5-60.0 [facility] Comment on above: Performed By: #### C BC #### [facility] [address] [place] [address] Dr. Nataly Lara MANUAL DIFF REQ NO Normal [facility] Comment on above: Performed By: #### C BC #### [facility] [address] [place] [address] Dr. Nataly Lara MCH (RBC) [Entitic mass] 31.2 pg Normal 26.7-34.0 [facility] Comment on above: Performed By: #### C BC #### [facility] [address] [place] [address] Dr. Nataly Lara MCHC (RBC) [Mass/Vol] 32.8 g/dL Normal 29.9-35.2 [facility] Comment on above: Performed By: #### C BC #### [facility] [address] [place] [address] Dr. Nataly Lara MCV (RBC) [Entitic vol] 95.2 fL Normal 81.0-99.0 [facility] Comment on above: Performed By: #### C BC #### [facility] [address] [place] [address] Dr. Nataly Lara MONO # 0.8 103/ul Normal 0.3-0.8 [facility] Comment on above: Performed By: #### C BC #### [facility] [address] [place] [address] Dr. Nataly Lara Monocytes/100 WBC (Bld) 7.0 % Normal 1.7-12.0 [facility] Comment on above: Performed By: #### C BC #### [facility] [address] [place] [address] Dr. Nataly Lara NEUT # 9.5 103/ul Critically high 1.4-6.5 [facility] Comment on above: Performed By: #### C BC #### [facility] [address] [place] [address] Dr. Nataly Lara Neutrophils/100 WBC (Bld) 78.9 % Critically high 43.0-75.0 [facility] Comment on above: Performed By: #### C BC #### [facility] [address] [place] [address] Dr. Nataly Lara Platelet mean volume (Bld) [Entitic vol] 9.5 fL Normal 9.5-13.5 [facility] Comment on above: Performed By: #### C BC #### [facility] [address] [place] [address] Dr. Nataly Lara PLT 319 103/ul Normal 150-450 [facility] Comment on above: Performed By: #### C BC #### [facility] [address] [place] [address] Dr. Nataly Lara RBC 4.39 106/ul Normal 4.20-5.40 [facility] Comment on above: Performed By: #### C BC #### [facility] [address] [place] [address] Dr. Nataly Lara WBC 12.0 103/ul Critically high 4.0-11.0 [facility] Comment on above: Performed By: #### C BC #### [facility] [address] [address] [address] Nataly DOVE URINE PROFILEon 2 Bilirubin Ql (U) Negative Normal NEGATIVE [facility] Comment on above: Performed By: #### U MICRO, ERUR #### [facility] [address] [address] [address] Nataly Lara Clarity (U) CLEAR Normal CLEAR [facility] Comment on above: Performed By: #### U MICRO, ERUR #### [facility] [address] [address] [address] Nataly Lara Color (U) LT. YELLOW Normal YELLOW [facility] Comment on above: Performed By: #### U MICRO, ERUR #### [facility] [address] [place] [address] Dr. Nataly Lara ERUAHD A micrscopic examination will be performed if indicated. Normal [facility] Comment on above: Performed By: #### U MICRO, ERUR #### [facility] [address] [address] [address] Nataly Lara Glucose Ql (U) Negative Normal NEGATIVE [facility] Comment on above: Performed By: #### U MICRO, ERUR #### [facility] [address] [address] [address] Nataly Lara Hemoglobin Ql (U) LARGE Abnormal NEGATIVE [facility] Comment on above: Performed By: #### U MICRO, ERUR #### [facility] [address] [address] [address] Nataly Lara Ketones Ql (U) Negative Normal NEGATIVE [facility] Comment on above: Performed By: #### U MICRO, ERUR #### [facility] [address] [address] [address] Nataly Lara LEUKOCYTES TRACE Abnormal NEGATIVE [facility] Comment on above: Performed By: #### U MICRO, ERUR #### [facility] [address] [address] [address] Nataly Lara Nitrite Ql (U) Negative Normal NEGATIVE [facility] Comment on above: Performed By: #### U MICRO, ERUR #### [facility] [address] [address] [address] Nataly Lara pH (U) 6.0 [pH] Normal 5-9 [facility] Comment on above: Performed By: #### U MICRO, ERUR #### [facility] [address] [address] [address] Nataly Lara SPEC GRAVITY <=1.005 Abnormal 1.005-<=1.02 5 [facility] Comment on above: Performed By: #### U MICRO, ERUR #### [facility] [address] [address] [address] Nataly Lara UA PROTEIN Negative Normal NEGATIVE/ TRACE [facility] Comment on above: Performed By: #### U MICRO, ERUR #### [facility] [address] [address] [address] Nataly Lara UR MICRO IND INDICATED Normal [facility] Comment on above: Performed By: #### U MICRO, ERUR #### [facility] [address] [address] [address] Nataly Lara Urobilinogen Qn (U) 0.2 {June'U}/dL Normal 0.2 - 1. 0 [facility] Comment on above: Performed By: #### U MICRO, ERUR #### [facility] [address] [address] [address] Nataly Lara PROF 14(COMP METB)on 022 Albumin [Mass/Vol] 3.8 g/dL Normal 3.4-5.0 [facility] Comment on above: Performed By: #### C MP ####[facility] [address] [address]Dr[address] Nataly Lara Albumin/Globulin [Mass ratio] 1.1 {ratio} Normal [facility] Comment on above: Performed By: #### C MP ####[facility] [address] [address]Dr. Nataly Lara ALP [Catalytic activity/Vol] 94 U/L Normal 46-116 [facility] Comment on above: Performed By: #### C MP ####[facility] [address] [phone]. Nataly Lara ALT [Catalytic activity/Vol] 13 U/L Critically low 14-59 [facility] Comment on above: Performed By: #### C MP ####[facility] [address] [phone]. Nataly Lara Anion gap [Moles/Vol] 5.6 mmol/L Normal [facility] Comment on above: Performed By: #### C MP ####[facility] [address] [phone]. Nataly Lara AST [Catalytic activity/Vol] 13 U/L Critically low 15-37 [facility] Comment on above: Performed By: #### C MP ####[facility] [address] [address]Dr. Nataly Marco Bilirubin [Mass/Vol] 0.3 mg/dL Normal 0.2-1.0 [facility] Comment on above: Performed By: #### C MP ####[facility] [address] [phone]. Nataly Marco Calcium [Mass/Vol] 9.6 mg/dL Normal 8.5-10.1 [facility] Comment on above: Performed By: #### C MP ####[facility] [address] [phone]. Nataly Marco Chloride [Moles/Vol] 100 mmol/L Normal 98-107 [facility] Comment on above: Performed By: #### C MP ####[facility] [address] [phone]. Nataly Lara CO2 [Moles/Vol] 34.4 mmol/L Critically high 21.0-32.0 [facility] Comment on above: Performed By: #### C MP ####[facility] [address] [phone]. Nataly Marco Creatinine [Mass/Vol] 0.91 mg/dL Normal 0.55-1.02 [facility] Comment on above: Performed By: #### C MP ####[facility] [address] [phone]. Nataly Marco EGFR-AF MONGOLIAN >60 Normal >=60 [facility] Comment on above: Performed By: #### C MP ####[facility] [address] [phone]. Machelletamanna Marco EGFR-NON AF MONGOLIAN 60 mL/min/1.73m2 Normal >=60 [facility] Comment on above: Performed By: #### C MP ####[facility] [address] [phone]. Nataly Lara Globulin (S) [Mass/Vol] 3.5 g/dL Normal T [facility] Comment on above: Performed By: #### C MP ####[facility] [address] [address]Dr. Nataly Lara Glucose [Mass/Vol] 80 mg/dL Normal 74-106 [facility] Comment on above: Performed By: #### C MP ####[facility] [address] [address]Dr. Nataly Lara Potassium [Moles/Vol] 3.0 mmol/L Critically low 3.5-5.1 [facility] Comment on above: Performed By: #### C MP ####[facility] [address] [address]Dr. Nataly Lara Protein [Mass/Vol] 7.3 g/dL Normal 6.4-8.2 [facility] Comment on above: Performed By: #### C MP ####[facility] [address] [address]Dr. Nataly Lara Sodium [Moles/Vol] 137 mmol/L Normal 136-145 [facility] Comment on above: Performed By: #### C MP ####[facility] [address] [address]Dr. Nataly Lara Urea nitrogen [Mass/Vol] 18.0 mg/dL Normal 7.0-18.0 [facility] Comment on above: Performed By: #### C MP ####[facility] [address] [address]Dr. Nataly Lara Urea nitrogen/Creatinine [Mass ratio] 19.8 mg/mg Normal [facility] Comment on above: Performed By: #### C MP ####[facility] [address] [id number]. Nataly Lara URINE MICROSCOPIC ONLYon BACTERIA TRACE Abnormal NONE SEEN [facility] Comment on above: Performed By: #### U MICRO, ERUR #### [facility] [address] [place] [address] Dr. Nataly Lara Bacteria identified Cx Nom (U) INDICATED Normal [facility] Comment on above: Performed By: #### U MICRO, ERUR #### [facility] [address] [place] [address] Dr. Nataly Lara CAST NONE SEEN Normal NONE SEEN [facility] Comment on above: Performed By: #### U MICRO, ERUR #### [facility] [address] [place] [address] Dr. Nataly Lara Crystals LM Nom (Urine sed) NONE SEEN Normal NONE SEEN [facility] Comment on above: Performed By: #### U MICRO, ERUR #### [facility] [address] [place] [address] Dr. Nataly Lara Epithelial cells LM Ql (Urine sed) MODERATE Abnormal NONE SEEN /RARE [facility] Comment on above: Performed By: #### U MICRO, ERUR #### [facility] [address] [place] [address] Dr. Nataly Lara MUCOUS NONE SEEN Normal NONE SEEN [facility] Comment on above: Performed By: #### U MICRO, ERUR #### [facility] [address] [address] [address] Nataly Lara RBC 10-20 Abnormal 0-2 [facility] Comment on above: Performed By: #### U MICRO, ERUR #### [facility] [address] [place] [address] Dr. Nataly Lara WBC 10-20 Abnormal NONE SEEN [facility] Comment on above: Performed By: #### U MICRO, ERUR #### [facility] [address] [place], [place] [address] Dr. Nataly Lara US KIDNEYSon 12-03-2021 US [...] AUNDREA IVERSON Date: 2021-12-03 15:50 Normal [facility] XR KUB 1 VIEWon 11-14-2021 XR [...] AUNDREA IVERSON Date: 2021-11-14 13:29 Normal [facility] CBC AUTO DIFFon 11-09-2021 BASO # 0.0 103/ul Normal 0.0-0.1 [facility] Comment on above: Performed By: #### C BC ####[facility] [address] [place], [place] [address]HaDr. Nataly Lara Basophils/100 WBC (Bld) 0.4 % Normal 0.2-2.0 [facility] Comment on above: Performed By: #### C BC ####[facility] [address] [place], [place] [address]Dr. Machelletamanna Lara EO # 0.4 103/ul Normal 0.0-0.7 [facility] Comment on above: Performed By: #### C BC ####[facility] [address] [place], [place] [address]Dr. Nataly Lara Eosinophils/100 WBC (Bld) 5.2 % Normal 0.9-7.0 [facility] Comment on above: Performed By: #### C BC ####[facility] [address] [place], [place] [address]Dr. Nataly Lara Erythrocyte distribution width (RBC) [Ratio] 12.8 % Normal 11.0-15.0 [facility] Comment on above: Performed By: #### C BC ####[facility] [address] [place], [place] [address]Dr. Nataly Lara Hematocrit (Bld) [Volume fraction] 41.5 % Normal 36.0-48.0 [facility] Comment on above: Performed By: #### C BC ####[facility] [address] [place], [place] [address]Dr. Machelletamanna Lara Hemoglobin (Bld) [Mass/Vol] 13.2 g/dL Normal 12.0-16.0 [facility] Comment on above: Performed By: #### C BC ####[facility] [address] [place], [place] [address]Dr. Nataly Lara IG # 0.02 10e3/ul Normal 0.00-0.03 [facility] Comment on above: Performed By: #### C BC ####[facility] [address] [place], [place] [address]Dr. Nataly Lara IG % 0.2 % Normal 0.0-0.5 [facility] Comment on above: Performed By: #### C BC ####[facility] [address] [place], [place] [address]Dr. Nataly Lara LYMPH # 1.5 103/ul Normal 1.2-3.8 [facility] Comment on above: Performed By: #### C BC ####[facility] [address] [place] [address]Dr. Nataly Lara Lymphocytes/100 WBC (Bld) 18.3 % Critically low 20.5-60.0 [facility] Comment on above: Performed By: #### C BC ####[facility] [address] [address]DrConnie Lara MANUAL DIFF REQ NO Normal [facility] Comment on above: Performed By: #### C BC ####[facility] [address] [address]Dr. Nataly Lara MCH (RBC) [Entitic mass] 31.1 pg Normal 26.7-34.0 [facility] Comment on above: Performed By: #### C BC ####[facility] [address] [place], [place] [address]Dr. Nataly Lara MCHC (RBC) [Mass/Vol] 31.8 g/dL Normal 29.9-35.2 [facility] Comment on above: Performed By: #### C BC ####[facility] [address] [place], [place] [address]DrConnie Lara MCV (RBC) [Entitic vol] 97.9 fL Normal 81.0-99.0 [facility] Comment on above: Performed By: #### C BC ####[facility] [address] [place], [place] [address]Dr. Nataly Lara MONO # 0.6 103/ul Normal 0.3-0.8 [facility] Comment on above: Performed By: #### C BC ####[facility] [address] [place], [place] [address]DrConnie Lara Monocytes/100 WBC (Bld) 6.9 % Normal 1.7-12.0 [facility] Comment on above: Performed By: #### C BC ####[facility] X[address] [place], [place] [address]Dr. Nataly Lara NEUT # 5.7 103/ul Normal 1.4-6.5 [facility] Comment on above: Performed By: #### C BC ####[facility] [address] [address]Dr. Nataly Lara Neutrophils/100 WBC (Bld) 69.0 % Normal 43.0-75.0 [facility] Comment on above: Performed By: #### C BC ####[facility] [address] [address]Dr. Nataly Lara Platelet mean volume (Bld) [Entitic vol] 9.5 fL Normal 9.5-13.5 [facility] Comment on above: Performed By: #### C BC ####[facility] [address] [address]Dr. Nataly Lara PLT 267 103/ul Normal 150-450 [facility] Comment on above: Performed By: #### C BC ####[facility] [address] [address]Dr. Nataly Lara RBC 4.24 106/ul Normal 4.20-5.40 [facility] Comment on above: Performed By: #### C BC ####[facility] [address] [address]Dr. Nataly Lara WBC 8.2 103/ul Normal 4.0-11.0 [facility] Comment on above: Performed By: #### C BC ####[facility] [address] [place], [place] [address]Dr. Nataly Lara CT CHEST W CONon 11-09-2021 [...] TASHI ESCOBAR Date: 2021-11-09 15:58 Normal [facility] CT CSPINE WO CONon CT CSPINE [...] TASHI ESCOBAR Date: 2021-11-09 15:43 Normal [facility] CT FACIAL BONES WO CONon CT [...] by: ISIAH ALVARES Date: 2021-11-09 16:14 Normal [facility] CT HEAD WO CONon 11-09-2021 CT [...] by: SELWYN COATES Date: 2021-11-09 15:42 Normal [facility] PROF CHEM 8 (BAS METB)on Anion gap [Moles/Vol] 10.6 mmol/L Normal [facility] Comment on above: Performed By: #### B MP ####[facility] [address] [address]DrConnie Lara Calcium [Mass/Vol] 9.5 mg/dL Normal 8.5-10.1 [facility] Comment on above: Performed By: #### B MP ####[facility] [address] [place] [id number] Lara Chloride [Moles/Vol] 102 mmol/L Normal 98-107 [facility] Comment on above: Performed By: #### B MP ####[facility] [address] [address]Dr. Nataly Marco CO2 [Moles/Vol] 33.4 mmol/L Critically high 21.0-32.0 [facility] Comment on above: Performed By: #### B MP ####[facility] [address] [place] [address]Dr. Machelletamanna Marco Creatinine [Mass/Vol] 0.87 mg/dL Normal 0.55-1.02 [facility] Comment on above: Performed By: #### B MP ####[facility] [address] [place], [place] [address]Dr. Machelletamanna Marco EGFR-AF MONGOLIAN >60 Normal >=60 [facility] Comment on above: Performed By: #### B MP ####[facility] [address] [place], [place] [address]Dr. Nataly Lara EGFR-NON AF MONGOLIAN >60 Normal >=60 [facility] Comment on above: Performed By: #### B MP ####[facility] [address] [place], [place] [address]Dr. Nataly Lara Glucose [Mass/Vol] 87 mg/dL Normal 74-106 [facility] Comment on above: Performed By: #### B MP ####[facility] [address] [place], [place] [address]Dr. Nataly Lara Potassium [Moles/Vol] 4.0 mmol/L Normal 3.5-5.1 [facility] Comment on above: Performed By: #### B MP ####[facility] [address] [address]Dr. Nataly Lara Sodium [Moles/Vol] 142 mmol/L Normal 136-145 [facility] Comment on above: Performed By: #### B MP ####[facility] [address] [place], [place] [address]Dr. Nataly Lara Urea nitrogen [Mass/Vol] 16.0 mg/dL Normal 7.0-18.0 [facility] Comment on above: Performed By: #### B MP ####[facility] [address] [place], [place] [address]EjConnei Lara Urea nitrogen/Creatinine [Mass ratio] 18.4 mg/mg Normal [facility] Comment on above: Performed By: #### B MP ####[facility] [address] [place], [place] [address]Fw. 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 Credit Collections Clerk: CAPRI Transcribe Date/Time: Aug 13 2021 3:20P [...] joint effusion. 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 Credit Collections Clerk: [facility] Transcribe Date/Time: Apr 19 2020 10:33A Dictated by : ULICES WADSWORTH MD This examination was interpreted and the report reviewed and electronically signed by: ULICES WADSWORTH MD on Apr 19 2020 10:35AM [facility] DIVISION OF RADIOLOGY * * *Final [...] either knee. 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 Credit Collections Clerk: PSCB Transcribe Date/Time: Apr 19 2020 10:33A Dictated by : ULICES WADSWORTH MD This examination was interpreted and the report reviewed and electronically signed by: ULICES WADSWORTH MD on Apr 19 2020 10:35AM EST [facility] Radiology Study observation (narrative) [facility] XR Knee - bilateral 3 ViewsO rdered By: Ccf Provider on 04-19-2020 [facility] No Panel Information [facility] Vital Signs Date Time Vital Sign Value Performing Clinician Facility 09-29-2024 10:50-0400 Body height 154.94 cm Roney Leroy DO Work Phone: [facility] 09-29-2024 10:50-0400 Body mass index (BMI) [Ratio] 29 kg/m2 Roney Leroy DO Work Phone: [facility] 09-29-2024 10:50-0400 Body weight 69.85 kg Roney Leroy DO Work Phone: [facility] 09-29-2024 10:50-0400 Diastolic blood pressure 78 mm[Hg] Roney Leroy DO Work Phone: [facility] 09-29-2024 10:50-0400 Heart rate 66 /min Roney Leroy DO Work Phone: [facility] 09-29-2024 10:50-0400 Systolic blood pressure 124 mm[Hg] Roney Leroy DO Work Phone: [facility] 09-11-2024 13:37-0400 Body height 160.02 cm Roney Leroy DO Work Phone: [facility] 09-11-2024 13:37-0400 Body mass index (BMI) [Ratio] 27.6 kg/m2 Roney Leroy DO Work Phone: [facility] 09-11-2024 13:37-0400 Body temperature 97.8 [degF] Roney Leroy DO Work Phone: [facility] 09-11-2024 13:37-0400 Body weight 70.76 kg Roney Leroy DO Work Phone: 6(774)958-252066 [address] 09-11-2024 13:37-0400 Diastolic blood pressure 77 mm[Hg] Roney Leroy DO Work Phone: 8(619)091-195066 [address] 09-11-2024 13:37-0400 Heart rate 103 /min Roney Leroy DO Work Phone: [facility] 09-11-2024 13:37-0400 Respiratory rate 16 /min Roney Leroy DO Work Phone: 2(523)283-233513 [place] [address] 09-11-2024 13:37-0400 SaO2% (BldA) [Mass fraction] 98 % Roney Leroy DO Work Phone: [facility] 09-11-2024 13:37-0400 Systolic blood pressure 132 mm[Hg] Roney Leroy DO Work Phone: [facility] 09-06-2024 16:19-0400 Body temperature 97.59 [degF] Moses Richards DO Work Phone: [facility] 09-06-2024 16:19-0400 Diastolic blood pressure 64 mm[Hg] Moses Richards DO Work Phone: [facility] 09-06-2024 16:19-0400 Heart rate 94 /min Moses Richards DO Work Phone: [facility] 09-06-2024 16:19-0400 SaO2% (BldA) [Mass fraction] 98 % Moses Richards DO Work Phone: [facility] 09-06-2024 16:19-0400 Systolic blood pressure 128 mm[Hg] Moses Richards DO Work Phone: [facility] 08-24-2024 10:51-0400 Body height 160 cm Gunner Itzkowitz DO Work Phone: [facility] 08-24-2024 10:51-0400 Body mass index (BMI) [Ratio] 27.63 kg/m2 Gunner Itzkowitz DO Work Phone: [facility] 08-24-2024 10:51-0400 Body weight 70.76 kg Gunner Itzkowitz DO Work Phone: [facility] 08-14-2024 09:45-0400 Body height 160.02 cm Ronye Leroy DO Work Phone: [facility] 08-14-2024 09:45-0400 Body mass index (BMI) [Ratio] 27.4 kg/m2 Roney Leroy DO Work Phone: [facility] 08-14-2024 09:45-0400 Body weight 70.3 kg Roney Leroy DO Work Phone: [facility] 08-14-2024 09:45-0400 Diastolic blood pressure 74 mm[Hg] Roney Leroy DO Work Phone: [facility] 08-14-2024 09:45-0400 Heart rate 94 /min Roney Leroy DO Work Phone: [facility] 08-14-2024 09:45-0400 Systolic blood pressure 138 mm[Hg] Roney Leroy DO Work Phone: [facility] 05-11-2024 11:00-0400 Body height 160.02 cm [facility] 05-11-2024 11:00-0400 Body mass index (BMI) [Ratio] 27.2 kg/m2 [facility] 05-11-2024 11:00-0400 Body weight 69.7 kg [facility] 05-11-2024 11:00-0400 Diastolic blood pressure 74 mm[Hg] [facility] 05-11-2024 11:00-0400 Systolic blood pressure 135 mm[Hg] [facility] 03-15-2024 13:16-0500 Body height 160 cm Carolyne Kline COMPLIANCE VICE PRESIDENT Work Phone: [facility] 03-15-2024 13:16-0500 Body mass index (BMI) [Ratio] 30.11 kg/m2 Carolyne Kline COMPLIANCE VICE PRESIDENT Work Phone: [facility] 03-15-2024 13:16-0500 Body temperature 98.01 [degF] Carolyne Whitneyy COMPLIANCE VICE PRESIDENT Work Phone: [facility] 03-15-2024 13:16-0500 Body weight 77.11 kg Carolyne Kline COMPLIANCE VICE PRESIDENT Work Phone: [facility] 03-15-2024 13:16-0500 Diastolic blood pressure 72 mm[Hg] Carolyne Whitneyrickey COMPLIANCE VICE PRESIDENT Work Phone: [facility] 03-15-2024 13:16-0500 Heart rate 90 /min Carolyne Kline COMPLIANCE VICE PRESIDENT Work Phone: [facility] 03-15-2024 13:16-0500 SaO2% (BldA) [Mass fraction] 99 % Carolyne Kline COMPLIANCE VICE PRESIDENT Work Phone: [facility] 03-15-2024 13:16-0500 Systolic blood pressure 126 mm[Hg] Carolyne Eliud COMPLIANCE VICE PRESIDENT Work Phone: [facility] 03-15-2024 13:04-0500 Body height 160 cm Mounika Yellow Jacket DO Work Phone: [facility] 03-15-2024 13:04-0500 Body mass index (BMI) [Ratio] 30.11 kg/m2 Mounika Yellow Jacket DO Work Phone: [facility] 03-15-2024 13:04-0500 Body temperature 98.01 [degF] Mounika Yellow Jacket DO Work Phone: [facility] 03-15-2024 13:04-0500 Body weight 77.11 kg Mounika Yellow Jacket DO Work Phone: [facility] 03-15-2024 13:04-0500 Diastolic blood pressure 72 mm[Hg] Mounika Yellow Jacket DO Work Phone: [facility] 03-15-2024 13:04-0500 Heart rate 90 /min Mounika Yellow Jacket DO Work Phone: [facility] 03-15-2024 13:04-0500 SaO2% (BldA) [Mass fraction] 99 % Mounika Yellow Jacket DO Work Phone: [facility] 03-15-2024 13:04-0500 Systolic blood pressure 126 mm[Hg] Mounika Yellow Jacket DO Work Phone: [facility] 03-08-2024 12:55-0500 Body height 160 cm Mounika Yellow Jacket DO Work Phone: [facility] 03-08-2024 12:55-0500 Body mass index (BMI) [Ratio] 29.05 kg/m2 Mounika Yellow Jacket DO Work Phone: [facility] 03-08-2024 12:55-0500 Body temperature 96.01 [degF] Mounika Yellow Jacket DO Work Phone: [facility] 03-08-2024 12:55-0500 Body weight 74.39 kg Mounika Yellow Jacket DO Work Phone: [facility] 03-08-2024 12:55-0500 Diastolic blood pressure 72 mm[Hg] Mounika Yellow Jacket DO Work Phone: [facility] 03-08-2024 12:55-0500 Heart rate 71 /min Mounika Yellow Jacket DO Work Phone: [facility] 03-08-2024 12:55-0500 SaO2% (BldA) [Mass fraction] 98 % Mounika Yellow Jacket DO Work Phone: [facility] 03-08-2024 12:55-0500 Systolic blood pressure 118 mm[Hg] Mounika Yellow Jacket DO Work Phone: [facility] 01-28-2024 09:37-0500 Body height 160 cm Mounika Yellow Jacket DO Work Phone: [facility] 01-28-2024 09:37-0500 Body mass index (BMI) [Ratio] 28.09 kg/m2 Mounika Yellow Jacket DO Work Phone: [facility] 01-28-2024 09:37-0500 Body temperature 99.39 [degF] Mounika Yellow Jacket DO Work Phone: [facility] 01-28-2024 09:37-0500 Body weight 71.94 kg Mounika Yellow Jacket DO Work Phone: [facility] 01-28-2024 09:37-0500 Diastolic blood pressure 78 mm[Hg] Mounika Yellow Jacket DO Work Phone: [facility] 01-28-2024 09:37-0500 Heart rate 102 /min Mounika Yellow Jacket DO Work Phone: [facility] 01-28-2024 09:37-0500 SaO2% (BldA) [Mass fraction] 97 % Mounika Yellow Jacket DO Work Phone: [facility] 01-28-2024 09:37-0500 Systolic blood pressure 112 mm[Hg] Mounika Yellow Jacket DO Work Phone: [facility] 01-26-2024 15:17-0500 Body mass index (BMI) [Ratio] 28.34 kg/m2 Summer Workman PA Work Phone: [facility] 01-26-2024 15:17-0500 Body temperature 96.69 [degF] Summer Workman PA Work Phone: [facility] 01-26-2024 15:17-0500 Body weight 72.58 kg Summer Workman PA Work Phone: [facility] 01-26-2024 15:17-0500 Diastolic blood pressure 86 mm[Hg] Summer Workman PA Work Phone: [facility] 01-26-2024 15:17-0500 Heart rate 97 /min Summer Workman PA Work Phone: [facility] 01-26-2024 15:17-0500 SaO2% (BldA) [Mass fraction] 99 % Summer Workman PA Work Phone: [facility] 01-26-2024 15:17-0500 Systolic blood pressure 138 mm[Hg] Summer Workman PA Work Phone: [facility] 01-12-2024 12:51-0500 Body mass index (BMI) [Ratio] 28.63 kg/m2 Jah Sutherland COMPLIANCE VICE PRESIDENT Work Phone: [facility] 01-12-2024 12:51-0500 Body temperature 98.6 [degF] Jah Sutherland COMPLIANCE VICE PRESIDENT Work Phone: [facility] 01-12-2024 12:51-0500 Body weight 73.3 kg Jah Sutherland COMPLIANCE VICE PRESIDENT Work Phone: [facility] 01-12-2024 12:51-0500 Diastolic blood pressure 68 mm[Hg] Jah Sutherland COMPLIANCE VICE PRESIDENT Work Phone: [facility] 01-12-2024 12:51-0500 Heart rate 88 /min Jah Sutherland COMPLIANCE VICE PRESIDENT Work Phone: [facility] 01-12-2024 12:51-0500 SaO2% (BldA) [Mass fraction] 98 % Jah Sutherland COMPLIANCE VICE PRESIDENT Work Phone: [facility] 01-12-2024 12:51-0500 Systolic blood pressure 132 mm[Hg] Jah Sutherland COMPLIANCE VICE PRESIDENT Work Phone: [facility] 12-08-2023 13:31-0400 Body height 160.02 cm [facility] 12-08-2023 13:31-0400 Body mass index (BMI) [Ratio] 28.5 kg/m2 [facility] 12-08-2023 13:31-0400 Body weight 72.99 kg [facility] 11-29-2023 11:50-0400 Body mass index (BMI) [Ratio] 27.61 kg/m2 Chalo Menjivar MD Work Phone: [facility] 11-29-2023 11:50-0400 Body weight 70.7 kg Chalo Menjivar MD Work Phone: [facility] 11-29-2023 11:50-0400 Diastolic blood pressure 82 mm[Hg] Chalo Menjivar MD Work Phone: [facility] 11-29-2023 11:50-0400 Heart rate 96 /min Chalo Menjivar MD Work Phone: [facility] 11-29-2023 11:50-0400 Systolic blood pressure 131 mm[Hg] Chalo Menjivar MD Work Phone: [facility] 11-02-2023 10:42-0400 Body height 160 cm Mounika Yellow Jacket DO Work Phone: [facility] 11-02-2023 10:42-0400 Body mass index (BMI) [Ratio] 28.34 kg/m2 Mounika Yellow Jacket DO Work Phone: [facility] 11-02-2023 10:42-0400 Body temperature 98.01 [degF] Mounika Yellow Jacket DO Work Phone: [facility] 11-02-2023 10:42-0400 Body weight 72.58 kg Mounika Yellow Jacket DO Work Phone: [facility] 11-02-2023 10:42-0400 Diastolic blood pressure 76 mm[Hg] Mounika Yellow Jacket DO Work Phone: [facility] 11-02-2023 10:42-0400 Heart rate 85 /min Mounika Yellow Jacket DO Work Phone: [facility] 11-02-2023 10:42-0400 SaO2% (BldA) [Mass fraction] 98 % Mounika Yellow Jacket DO Work Phone: [facility] 11-02-2023 10:42-0400 Systolic blood pressure 128 mm[Hg] Mounika Yellow Jacket DO Work Phone: [facility] 10-27-2023 16:00-0400 Body mass index (BMI) [Ratio] 27.81 kg/m2 Summer Workman PA Work Phone: [facility] 10-27-2023 16:00-0400 Body temperature 95.9 [degF] Summer Workman PA Work Phone: [facility] 10-27-2023 16:00-0400 Body weight 71.22 kg Summer Workman PA Work Phone: [facility] 10-27-2023 16:00-0400 Diastolic blood pressure 76 mm[Hg] Summer Workman PA Work Phone: [facility] 10-27-2023 16:00-0400 Heart rate 102 /min [facility] Workman PA Work Phone: [facility] 10-27-2023 16:00-0400 SaO2% (BldA) [Mass fraction] 98 % [facility] Workman PA Work Phone: [facility] 10-27-2023 16:00-0400 Systolic blood pressure 138 mm[Hg] [facility] Reactionman PA Work Phone: [facility] 10-18-2023 10:53-0400 Body mass index (BMI) [Ratio] 28.34 kg/m2 Jah Sutherland COMPLIANCE VICE PRESIDENT Work Phone: [facility] 10-18-2023 10:53-0400 Body temperature 97.81 [degF] Jah Sutherland COMPLIANCE VICE PRESIDENT Work Phone: [facility] 10-18-2023 10:53-0400 Body weight 72.58 kg Jah Sutherland COMPLIANCE VICE PRESIDENT Work Phone: [facility] 10-18-2023 10:53-0400 Diastolic blood pressure 78 mm[Hg] Jah Sutherland COMPLIANCE VICE PRESIDENT Work Phone: [facility] 10-18-2023 10:53-0400 Heart rate 100 /min Jah Sutherland COMPLIANCE VICE PRESIDENT Work Phone: [facility] 10-18-2023 10:53-0400 Respiratory rate 18 /min Jah Sutherland COMPLIANCE VICE PRESIDENT Work Phone: [facility] 10-18-2023 10:53-0400 SaO2% (BldA) [Mass fraction] 98 % Jah Sutherland COMPLIANCE VICE PRESIDENT Work Phone: [facility] 10-18-2023 10:53-0400 Systolic blood pressure 132 mm[Hg] Jah Sutherland COMPLIANCE VICE PRESIDENT Work Phone: [facility] 09-29-2023 10:43-0400 Body height 160 cm Sade Olivas PA Work Phone: [facility] 09-29-2023 10:43-0400 Body mass index (BMI) [Ratio] 29.05 kg/m2 Sade Olivas PA Work Phone: [facility] 09-29-2023 10:43-0400 Body temperature 97.2 [degF] Sade Olivas PA Work Phone: [facility] 09-29-2023 10:43-0400 Body weight 74.39 kg Sade Olivas PA Work Phone: [facility] 09-29-2023 10:43-0400 Diastolic blood pressure 72 mm[Hg] Sade Olivas PA Work Phone: [facility] 09-29-2023 10:43-0400 Heart rate 76 /min Sade Olivas PA Work Phone: [facility] 09-29-2023 10:43-0400 SaO2% (BldA) [Mass fraction] 95 % Sade Olivas PA Work Phone: [facility] 09-29-2023 10:43-0400 Systolic blood pressure 138 mm[Hg] Sade Olivas PA Work Phone: [facility] 09-29-2023 10:38-0400 Body height 160 cm Mounika Yellow Jacket DO Work Phone: [facility] 09-29-2023 10:38-0400 Body mass index (BMI) [Ratio] 29.05 kg/m2 Mounika Yellow Jacket DO Work Phone: [facility] 09-29-2023 10:38-0400 Body temperature 97.2 [degF] Mounika Yellow Jacket DO Work Phone: [facility] 09-29-2023 10:38-0400 Body weight 74.39 kg Mounika Yellow Jacket DO Work Phone: [facility] 09-29-2023 10:38-0400 Diastolic blood pressure 72 mm[Hg] Mounika Yellow Jacket DO Work Phone: 5(774)067-927264 [place] [address] 09-29-2023 10:38-0400 Heart rate 76 /min Mounika Yellow Jacket DO Work Phone: 6(688)971-596664 [place] [address] 09-29-2023 10:38-0400 SaO2% (BldA) [Mass fraction] 95 % Mounika Yellow Jacket DO Work Phone: [facility] 09-29-2023 10:38-0400 Systolic blood pressure 138 mm[Hg] Mounika Yellow Jacket DO Work Phone: 9(503)430-111666 [address] 09-08-2023 11:04-0400 Body temperature 98 [degF] DO Roney Rad Work Phone: 6(621)547-319166 [address] 09-08-2023 11:04-0400 Diastolic blood pressure 78 mm[Hg] DO Roney Rad Work Phone: 7(174)692-823666 [address] 09-08-2023 11:04-0400 Heart rate 85 /min DO Roney Rad Work Phone: 4(355)758-523166 [address] 09-08-2023 11:04-0400 Respiratory rate 18 /min DO Roney Rad Work Phone: 0(112)420-319966 [address] 09-08-2023 11:04-0400 SaO2% (BldA) [Mass fraction] 97 % DO Roney Rad Work Phone: 5(384)544-373313 [place] [address] 09-08-2023 11:04-0400 Systolic blood pressure 139 mm[Hg] DO Roney Rad Work Phone: 6(231)614-342866 [address] 09-08-2023 11:01-0400 Body height 160.02 cm DO Roney Rad Work Phone: 7(159)023-173866 [address] 09-08-2023 11:01-0400 Body mass index (BMI) [Ratio] 29 kg/m2 DO Roney Rad Work Phone: 9(710)937-308866 [address] 09-08-2023 11:01-0400 Body weight 74.38 kg DO Roney Rad Work Phone: 4(909)[phone] [address] 12-08-2022 11:13-0400 Diastolic blood pressure 78 mm[Hg] Afshin Rocha MD Work Phone: [facility] 12-08-2022 11:13-0400 Systolic blood pressure 132 mm[Hg] Afshin Rocha MD Work Phone: [facility] 12-08-2022 10:43-0400 Body height 160 cm Afshin Rocha MD Work Phone: [facility] 12-08-2022 10:43-0400 Body mass index (BMI) [Ratio] 29.41 kg/m2 Afshin Rocha MD Work Phone: [facility] 12-08-2022 10:43-0400 Body weight 75.3 kg Afshin Rocha MD Work Phone: [facility] 12-08-2022 10:43-0400 Heart rate 87 /min Afshin Rocha MD Work Phone: [facility] 09-02-2022 10:00-0400 Body temperature 98 [degF] DO Roney Becerriler Work Phone: [facility] 09-02-2022 10:00-0400 Diastolic blood pressure 72 mm[Hg] DO Roney Becerriler Work Phone: [facility] 09-02-2022 10:00-0400 Heart rate 85 /min DO Roney Becerriler Work Phone: [facility] 09-02-2022 10:00-0400 Respiratory rate 20 /min DO Roney Becerriler Work Phone: [facility] 09-02-2022 10:00-0400 SaO2% (BldA) [Mass fraction] 95 % DO Roney Rad Work Phone: [facility] 09-02-2022 10:00-0400 Systolic blood pressure 136 mm[Hg] DO Roney Rad Work Phone: [facility] 05-19-2022 11:45-0400 Body height 162.56 cm Meir Morrissey Other [employer] Other 05-19-2022 11:45-0400 Body mass index (BMI) [Ratio] 27.12 kg/m2 Meir Morrissey Other [employer] Other 05-19-2022 11:45-0400 Body weight 71.67 kg Meir Morrissey Other [employer] Other 11-26-2021 14:45-0400 Body height 162.56 cm Meir Morrissey Other [employer] Other 11-26-2021 14:45-0400 Body mass index (BMI) [Ratio] 27.46 kg/m2 Meir Ureñay Other [employer] Other 11-26-2021 14:45-0400 Body weight 72.58 kg Meir Morrissey Other [employer] Other 11-18-2021 10:34-0400 Blood Pressure Location Noe LOZA [facility] 11-18-2021 10:34-0400 Diastolic blood pressure 71 mm[Hg] Noe LOZA [facility] 11-18-2021 10:34-0400 Heart rate 72 /min Noe Pressable [facility] 11-18-2021 10:34-0400 Systolic blood pressure 145 mm[Hg] Noe Pressable [facility] 12-05-2020 15:00-0400 Body height 162.56 cm Meir Morrissey Other [employer] Other 12-05-2020 15:00-0400 Body mass index (BMI) [Ratio] 27.63 kg/m2 Meir Morrissey Other [employer] Other 12-05-2020 15:00-0400 Body weight 73.03 kg Meir Morrissey Other [employer] Other 12-08-2018 14:36-0400 Body Temperature 98.2 [degF] [facility] 12-08-2018 14:36-0400 Body weight 78.8 kg [facility] 12-08-2018 14:36-0400 BP Diastolic 76 mm[Hg] [facility] 12-08-2018 14:36-0400 BP Systolic 146 mm[Hg] [facility] 12-08-2018 14:36-0400 Pulse (Heart Rate) 78 /min [facility] 12-08-2018 14:36-0400 Pulse Oximetry 98 % [facility] 12-08-2018 14:36-0400 Respiratory Rate 20 /min [facility] 10-14-2018 14:07-0400 Height 157.48 cm [facility] Encounters Encounter Date Encounter Type [...] Start: 10-05-2024 End: 10-05-2024 ambulatory BRANDO SHIELDS Facility:[facility] Start: 09-29-2024 End: 09-29-2024 ambulatory Roney Leroy DO Work Phone: [facility] Work Phone: Start: 09-29-2024 End: 09-29-2024 Patient encounter procedure Sade Gauthier EARTH SCIENCE TEACHER -[facility] Work Phone: Start: 09-20-2024 End: 09-20-2024 Telephone encounter Anabelle Keita AUD Work Phone: [facility] Start: 09-13-2024 End: 09-13-2024 ambulatory DAVID TOMLIN Facility:[facility] Start: 09-11-2024 Registered Recurring Elsa Kendrick [facility] Work Phone: Start: 09-11-2024 End: 09-11-2024 ambulatory Roney Leroy DO Work Phone: [facility] Work Phone: Start: 09-11-2024 End: 09-11-2024 Patient encounter procedure Esme FANG -[facility] Work Phone: Start: 09-07-2024 End: 09-07-2024 Patient encounter procedure Jessica aGrcia MD Work Phone: Ophthalmology Comment on above: PCO (posterior capsu lar opacification), right (Primary Dx); Pseudophakia; 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); History of Descemet membrane endothelial keratoplasty (DMEK) Start: 09-07-2024 End: 09-07-2024 ambulatory BRANDO A MAMMO Facility:[facility] Start: 09-06-2024 End: 09-06-2024 Office outpatient visit 25 minutes Moses Richards DO Work Phone: [facility] Comment on above: Foreign body of righ t ear, initial encounter Start: 09-06-2024 End: 09-06-2024 ambulatory MOSES RICHADRS Not Available Start: 09-04-2024 End: 09-04-2024 Nursing evaluation of patient and report Nurse Lucrecia [facility] Nalini Work Phone: Rheumatology Comment on above: Senile osteoporosis (Primary Dx); Personal history of other drug therapy Start: 09-04-2024 End: 09-04-2024 ambulatory CHALO MENJIVAR Facility:[facility] Start: 08-28-2024 End: 08-28-2024 Telephone encounter Chalo [...] Start: 08-16-2024 End: 08-16-2024 ambulatory RONEY LEROY Facility:[facility] Start: 08-14-2024 End: 08-14-2024 ambulatory Roney Leroy DO Work Phone: [facility] Work Phone: Start: 08-14-2024 End: 08-14-2024 Patient encounter procedure Sade Gauthier [facility] Work Phone: Start: 08-10-2024 End: 08-10-2024 Telephone encounter Chalo Menjivar MD Work Phone: Rheumatology Comment on above: Patient Question; Ap pointment Start: 06-29-2024 End: 06-29-2024 ambulatory BRANDO A MAMMO Facility:[facility] Start: 06-26-2024 Registered Recurring Elsa Kendrick [facility] Work Phone: Start: 05-11-2024 End: 05-11-2024 ambulatory [facility] Work Phone: Start: 05-11-2024 End: 05-11-2024 Patient encounter procedure [facility] Work Phone: Start: 04-18-2024 End: 04-18-2024 ambulatory Silvia Bianchi Facility: [facility] Start: 04-18-2024 End: 04-18-2024 ambulatory Noe LOZA Facility:[facility] Start: 04-18-2024 End: 04-18-2024 Patient encounter procedure Noe LOZA [facility] Start: 04-13-2024 End: 04-13-2024 ambulatory RONEY LEROY Facility:[facility] Start: 04-13-2024 End: 04-13-2024 Patient encounter procedure Nic Anderson MD Work Phone: Ophthalmology Comment on above: Pseudophakia (Primar y Dx); PCO (posterior capsular opacification), bilateral; History of Descemet membrane endothelial keratoplasty (DMEK); 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) Start: 04-09-2024 End: 04-09-2024 ambulatory RONEY LEROY Not Available Start: 04-06-2024 End: 04-06-2024 ambulatory RONEY LEROY Facility:[facility] Start: 04-06-2024 End: 04-06-2024 Patient encounter procedure Brando Shields MD Work Phone: Ophthalmology Comment on above: 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) Start: 03-18-2024 End: 03-20-2024 Refill Diego Martins MD Work Phone: Ophthalmology Comment on above: Refill Request Start: 03-15-2024 End: 03-15-2024 Assay of hemosiderin, quant Carolyne Kline COMPLIANCE VICE PRESIDENT Work Phone: [facility] Work Phone: Start: 03-15-2024 End: 03-15-2024 Patient encounter procedure Carolyne Kline COMPLIANCE VICE PRESIDENT Work Phone: [facility] 230 Comment on above: Routine general medi oriana examination at health care facility (Primary Dx); Mild intermittent asthma without complication (CMS/HCC); Hypertension, unspecified type (CMS/HCC); Hypothyroidism, unspecified type (CMS/HCC); Hyperlipidemia, unspecified hyperlipidemia type (CMS/HCC) Start: 03-15-2024 End: 03-15-2024 Bamboo flowsheet Mounika L Yellow Jacket DO Work Phone: [facility] 230 Start: 03-15-2024 End: 03-15-2024 Bamboo flowsheet Mounika L Yellow Jacket DO Work Phone: [facility] 230 Start: 03-15-2024 End: 03-15-2024 Office outpatient visit 25 minutes Mounika L Yellow Jacket DO Work Phone: [facility] 230 Comment on above: Impingement of right shoulder (Primary Dx); Greater trochanteric bursitis of right hip Start: 03-15-2024 End: 03-15-2024 ambulatory CAROLYNE Rocio KLINE Not Available Start: 03-08-2024 End: 03-08-2024 Bamboo flowsheet Mounika L Yellow Jacket DO Work Phone: [facility] 230 Start: 03-08-2024 End: 03-08-2024 Bamboo flowsheet Mounika L Yellow Jacket DO Work Phone: [facility] 230 Start: 03-08-2024 End: 03-08-2024 Office outpatient visit 15 minutes Mounika L Yellow Jacket DO Work Phone: [facility] 230 Comment on above: Impingement of right shoulder (Primary Dx); Right hip pain; Greater trochanteric bursitis of right hip Start: 03-08-2024 End: 03-08-2024 ambulatory MOUNIKA L CUTLER Not Available Start: 03-06-2024 End: 03-06-2024 ambulatory RONEY LEROY Facility:[facility] Start: 03-06-2024 End: 03-08-2024 Nursing evaluation of patient and report Nurse Lucrecia [facility] Work Phone: Rheumatology Comment on above: [...] Start: 03-02-2024 End: 03-02-2024 ambulatory RONEY LEROY Facility:[facility] Start: 01-28-2024 End: 01-28-2024 Bamboo flowsheet Mounika L Yellow Jacket DO Work Phone: [facility] 230 Start: 01-28-2024 End: 01-28-2024 Bamboo flowsheet Mounika L Yellow Jacket DO Work Phone: [facility] 230 Start: 01-28-2024 End: 01-28-2024 Office outpatient visit 15 minutes Mounika L Yellow Jacket DO Work Phone: [facility] 230 [...] Start: 01-20-2024 End: 01-20-2024 ambulatory BRANDO SHIELDS Facility:[facility] Start: 01-20-2024 End: 01-20-2024 Patient encounter procedure [...] Office outpatient visit 25 minutes Jah Sutherland COMPLIANCE VICE PRESIDENT Work Phone: [facility] Comment on above: Bronchitis (Primary Dx); Acute cough Start: 01-12-2024 End: 01-12-2024 ambulatory JAH SUTHERLAND Not Available Start: 12-08-2023 End: 12-08-2023 ambulatory [facility] Work Phone: Start: 12-08-2023 End: 12-08-2023 Patient encounter procedure [facility] Gastroenterology Work Phone: Start: 11-30-2023 End: 11-30-2023 Patient encounter procedure [facility] Comment on above: Sensorineural hearin g loss, bilateral (Primary Dx) Start: 11-30-2023 End: 11-30-2023 ambulatory MOUNIKA DICK Not Available Start: 11-29-2023 End: 11-29-2023 ambulatory CHALO MENJIVAR Facility:[facility] Start: 11-29-2023 End: 11-29-2023 Patient encounter procedure [...] 11-11-2023 End: 11-11-2023 ambulatory BRANDO A MAMMO Facility:[facility] Start: 11-11-2023 End: 11-11-2023 Patient encounter procedure Brando Shields MD Work Phone: Ophthalmology Comment on above: 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); Retinal edema Start: 11-03-2023 End: 11-03-2023 Patient encounter procedure [facility] [place]landa Weaver [facility] Comment on above: Sensorineural hearin g loss, bilateral (Primary Dx) Start: 11-03-2023 End: 11-03-2023 ambulatory MOUNIKA CUTLER Not Available Start: 11-02-2023 End: 11-02-2023 Bamboo flowsheet Mounika L Yellow Jacket DO Work Phone: [facility] 230 Start: 11-02-2023 End: 11-02-2023 Bamboo flowsheet Mounika L Yellow Jacket DO Work Phone: [facility] 230 Start: 11-02-2023 End: 11-02-2023 Office outpatient visit 15 minutes Mounika L Yellow Jacket DO Work Phone: [facility] 230 Comment on above: Acute cystitis witho ut hematuria (Primary Dx) Start: 11-02-2023 End: 11-02-2023 ambulatory MOUINKA L CUTLER Not Available Start: 11-01-2023 End: 11-02-2023 Clinisync Result Encounter Generic External Data Provider [facility] External Department Unsolicited Start: 11-01-2023 End: 11-02-2023 Clinisync Result Encounter Generic External Data Provider [facility] External Department Unsolicited Start: 10-27-2023 End: 10-27-2023 ambulatory SUMMER M WORKMAN Not Available Start: 10-27-2023 End: 10-27-2023 Office outpatient visit 25 minutes Summer M Workman PA Work Phone: [facility] Comment on above: Generalized abdomina l pain (Primary Dx); Nausea and vomiting, unspecified vomiting type; Diarrhea, unspecified type; Flank pain Start: 10-27-2023 End: 10-29-2023 Clinisync Result Encounter Generic External Data Provider [facility] External Department Unsolicited Start: 10-27-2023 End: 10-29-2023 Clinisync Result Encounter Generic External Data Provider [facility] External Department Unsolicited Start: 10-19-2023 End: 10-19-2023 Telephone encounter Jah Sutherland COMPLIANCE VICE PRESIDENT Work Phone: [facility] Start: 10-18-2023 End: 10-18-2023 ambulatory JAH SUTHERLAND Not Available Start: 10-18-2023 End: 10-18-2023 Office outpatient visit 25 minutes Jah Sutherland COMPLIANCE VICE PRESIDENT Work Phone: [facility] Comment on above: Acute cystitis witho ut hematuria (Primary Dx); Urinary frequency Start: 10-14-2023 End: 10-15-2023 Refill Chalo Menjivar MD Work Phone: Rheumatology Comment on above: Refill Request Start: 10-06-2023 End: 10-06-2023 Patient encounter procedure [facility] Weaver [facility] RANJIT Comment on above: Sensorineural hearin g loss, bilateral (Primary Dx) Start: 10-06-2023 End: 10-06-2023 ambulatory MOUNIKA CUTLER Not Available Start: 09-29-2023 End: 09-29-2023 Bamboo flowsheet Mounika L Yellow Jacket DO Work Phone: [facility] 230 Start: 09-29-2023 End: 09-29-2023 Bamboo flowsheet Mounika L Yellow Jacket DO Work Phone: [facility] 230 Start: 09-29-2023 End: 09-29-2023 Assay of hemosiderin, quant Sade WOODWARD Work Phone: [facility] Work Phone: Start: 09-29-2023 End: 09-29-2023 Patient encounter procedure Sade WOODWARD Work Phone: [facility] 230 Comment on above: Routine general medi oriana examination at health care facility (Primary Dx) Start: 09-29-2023 End: 09-29-2023 Office outpatient visit 25 minutes Mounika L Yellow Jacket DO Work Phone: [facility] 230 [...] 09-08-2023 ambulatory DO Roney Leroy Work Phone: [facility] Work Phone: Start: 09-08-2023 End: 09-08-2023 Patient encounter procedure DO Roney Leroy Work Phone: [facility] Work Phone: Start: 09-08-2023 Registered Recurring DO Roney mosqueda Work Phone: [facility] Work Phone: Start: 09-03-2023 End: 09-03-2023 Nursing evaluation of patient and report Nurse Lucrecia [facility] Work Phone: Rheumatology Comment on above: [...] Mounika L Cut ler DO Work Phone: [facility] 230 Start: 01-03-2023 Telephone encounter Paulo harmon MD Work Phone: Ophthalmology Comment on above: Patient Update Start: 12-08-2022 End: 12-08-2022 ambulatory AFSHIN ROCHA [facility] Ambulatory Start: 12-08-2022 End: 12-08-2022 Office outpatient visit 25 minutes Afshin Rocha MD Work Phone: [facility] Comment on above: Vertigo (Primary Dx) ; SVT (supraventricular tachycardia); Overweight (BMI 25.0-29.9); Essential hypertension Start: 11-23-2022 End: 11-23-2022 ambulatory Meir Morrissey Other [employer] Other Start: 11-23-2022 Telephone encounter Meir RODRIGUEZ G Gastroenterology Start: 09-09-2022 Telephone encounter Chalo ott MD Work Phone: Rheumatology Comment on above: Results (BMD) Start: 08-26-2022 Telephone encounter Nic Anderson MD Work Phone: Ophthalmology Comment on above: Patient Question Start: 08-13-2022 Preprocedural examin ation done Mounika Dick DO Work Phone: [facility] Start: 08-05-2022 Telephone encounter Chalo ott MD Work Phone: Rheumatology Comment on above: Results Start: 05-19-2022 End: 05-19-2022 ambulatory Meir Morrissey Other [employer] Other Start: 05-19-2022 Patient encounter procedure Meir EMERY Gastroenter[facility] Start: 04-14-2022 End: 04-14-2022 Patient encounter procedure Nic Anderson MD Work Phone: Ophthalmology Comment on above: 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); History of Descemet membrane endothelial keratoplasty (DMEK); Pseudophakia Start: 03-03-2022 End: 03-03-2022 ambulatory Meir Morrissey Other [employer] Other Start: 03-03-2022 Telephone encounter Meir Morrissey [...] 11-26-2021 End: 11-26-2021 ambulatory Meir Morrissey Other [employer] Other Start: 11-26-2021 Patient encounter procedure Meir Morrissey [facility] Start: 11-18-2021 End: 11-18-2021 Patient encounter procedure Noe LOZA [facility] Start: 11-14-2021 End: 11-15-[address] [...] 09-29-2021 End: 09-29-2021 ambulatory Meir Morrissey Other [facility] [employer] Other Start: 09-29-2021 Telephone encounter Meir Morrissey [...] Pseudophakia Start: 07-02-2021 ambulatory Maribell Butler RN [facility] Start: 07-02-2021 Patient encounter procedure Maribell Butler RN [facility]URSE [employer] Comment on above: Appointment Start: 06-03-2021 End: [...] examination done Nic Anderson MD Work Phone: [facility] Work Phone: Start: 12-05-2020 Patient encounter procedure Meir Ghanshyam [facility] Gastroenterology Start: 04-19-2020 End: 04-19-2020 Subsequent hospital visit by physician Omar Crocker 1 Work Phone: Radiology Comment on above: Status post bilatera l knee replacements [Z96.653] Start: 12-20-2018 End: 12-20-2018 [facility] Start: 12-08-2018 [facility] Start: 06-20-2018 End: 06-20-2018 Patient encounter procedure [facility] Procedures Date Procedure Procedure [...] 10-18-2023 URINARY TRACT INFECTION (HTRX) Jah Sutherland COMPLIANCE VICE PRESIDENT Work Phone: Start: 10-18-2023 Urnls dip stick/tablet rgnt auto w/o microscopy Jah Sutherland COMPLIANCE VICE PRESIDENT Work Phone: Start: 09-16-2023 End: 09-16-2023 Intravitreal [...] End: 04-29-2023 Computerized ophthalmic imaging retina Nic Andesron MD Work Phone: Start: 12-08-2022 ECG 12-LEAD [...] Xr 1 Work Phone: Procedure on back Noe ANDERSON Total knee replacement Jai LOZA Plan of Treatment Date Care Activity Detail Author Start: 03-02-2027 Diabetes Screening Diabetes Screening [facility] Start: 03-05-2026 Diabetes Screening Diabetes Screening [facility] Start: 10-20-2025 End: 03-29-2026 OCT MACULA CIRRUS OU (BOTH EYES) OCT MACULA CIRRUS OU (BOTH EYES) [facility] Imaging Routine 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) Expected: 10/20/2025, Expires: 03/29/2026 [facility] Work Phone: Comment on above: Expected: 10/20/2025, Expires: Start: 08-30-2025 End: 08-30-2025 Patient encounter procedure 08/30/2025 10:45 AM EDT Office Visit [facility] [address] [address] Gunner Hidalgo DO [address] [facility] [address] [place] [address] [facility] Start: 08-03-2025 DIABETES SCREEN DIABETES SCREEN [facility] Start: 08-03-2025 Diabetes Screening Diabetes Screening [facility] Start: 04-21-2025 End: 09-28-2025 OCT MACULA CIRRUS OU (BOTH EYES) OCT MACULA CIRRUS OU (BOTH EYES) [facility] Imaging Routine 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) Expected: 04/21/2025, Expires: 09/28/2025 [facility] Work Phone: Comment on above: Expected: 04/21/2025, Expires: Start: 04-19-2025 End: 04-19-2025 Patient encounter procedure 04/19/2025 9:15 AM EDT Office Visit [facility] [address] [address] Nic Anderson MD [address] [place] [address] [facility] [address] [address] Corneal Transplant yearly Ophthalmology Comment on above: Corneal Transplant yearly Start: 03-15-2025 Medicare Annual Wellness (AWV) Medicare Annual Wellness (AWV) [facility] Start: 02-03-2025 End: 07-13-2025 OCT MACULA CIRRUS OU (BOTH EYES) OCT MACULA CIRRUS OU (BOTH EYES) OPHT Imaging Routine 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) Expected: 02/03/2025, Expires: 07/13/2025 [facility] Work Phone: Comment on above: Expected: 02/03/2025, Expires: Start: 12-28-2024 End: 12-28-2024 Patient encounter procedure 12/28/2024 1:30 PM EST Office Visit OPHT Ophthalmology [address] [place] [address] Brando Shields MD [address] [place] [address] Diagnostics, [facility] [address] [address] *12 W, DFE/OCT/OPTOS/FAF, AVASTIN OU Ophthalmology Comment on above: *12 W, DFE/OCT/OPTOS/FAF, AVASTIN OU Start: 11-25-2024 End: 05-04-2025 OCT MACULA CIRRUS OU (BOTH EYES) OCT MACULA CIRRUS OU (BOTH EYES) OPHT Imaging Routine 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) Expected: 09/30/2024, Expires: 2025 [facility] Work Phone: Comment on above: Expected: 09/30/2024, Expires: Start: 09-28-2024 Medicare Annual Wellness (AWV) Medicare Annual Wellness (AWV) [facility] Start: 09-25-2024 End: 02-16-2026 YAG CAPSULOTOMY OD (RIGHT EYE) YAG CAPSULOTOMY OD (RIGHT EYE) Ophthalmology Routine PCO (posterior capsular opacification), right Expected: 09/25/2024, Expires: 02/16/2026 [facility] Work Phone: Comment on above: Expected: 09/25/2024, Expires: Start: 09-13-2024 End: 09-13-2024 Patient encounter procedure 09/13/2024 10:30 AM EDT Office Visit OPHT Ophthalmology [address] [place] [address] David Tomlin S, OD [address] [place] [address] Diagnostics, [facility] [address] [place] [id number] Return for -F/U 1-2 weeks with special weapons unit officer (Fred). Ophthalmology Comment on above: Return for -F/U 1-[address] (Fred). Start: 09-07-2024 End: 09-07-2024 Patient encounter procedure Ophthalmology Comment on above: YAG EVAL YAG OD -last seen Dr SINGLETON Start: 09-04-2024 End: 09-04-2024 Nursing evaluation of patient and report 09/04/2024 2:00 PM EDT Nurse Visit Rheumatology [address] [place] [address] Nurse Lucrecia Gayle [facility] [address] [place] [address] PROLIA Rheumatology Comment on above: PROLIA Start: 08-24-2024 End: 08-24-2024 Patient encounter procedure 08/24/2024 10:45 AM EDT Office Visit MANUEL CARSON [address] [facility] [address] [place] [id number] Gunner Hidalgo DO [address] [place] [address] NOM[facility] CARSON Start: 08-19-2024 End: 01-26-2025 OCT MACULA CIRRUS OU (BOTH EYES) OCT MACULA CIRRUS OU (BOTH EYES) OPHT Imaging Routine 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) Expected: 08/19/2024, Expires: 01/26/2025 [facility] Work Phone: Comment on above: Expected: 08/19/2024, Expires: Start: 08-08-2024 End: 03-05-2025 25-hydroxyvitamin D3 [Mass/volume] in Serum or Plasma VITAMIN D 25 HYDROXY Lab Routine Vitamin D deficiency Expected: 08/08/2024 (Approximate), Expires: 03/05/2025 [facility] Comment on above: Expected: 08/08/2024 (Approximate), Expi res: 03/05/2025 Start: 08-08-2024 End: 03-05-2025 Calcium [Mass/volume] in Serum or Plasma CALCIUM, TOTAL Lab Routine Hypocalcemia Expected: 08/08/2024 (Approximate), Expires: 03/05/2025 [facility] Work Phone: Comment on above: Expected: 08/08/2024 (Approximate), Expi res: 03/05/2025 Start: 07-15-2024 End: 12-22-2024 OCT MACULA CIRRUS OU (BOTH EYES) OCT MACULA CIRRUS OU (BOTH EYES) OPHT Imaging Routine 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) Expected: 07/15/2024, Expires: 12/22/2024 [facility] Work Phone: Comment on above: Expected: 07/15/2024, Expires: Start: 07-06-2024 End: 07-06-2024 Patient encounter procedure 07/06/2024 10:30 AM EDT Office Visit [facility] Ophthalmology [address] [place] [address] Brando Shields MD [address] [place] [address] *13 W, DFE/OCT, AVASTIN OU auth pending Ophthalmology Comment on above: *13 W, DFE/OCT, AVASTIN OU auth pending Start: 06-17-2024 End: 11-24-2024 OCT MACULA CIRRUS OU (BOTH EYES) OCT MACULA CIRRUS OU (BOTH EYES) OPHT Imaging Routine 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) Expected: 06/17/2024, Expires: 11/24/2024 [facility] Work Phone: Comment on above: Expected: 06/17/2024, Expires: Start: 04-16-2024 DIABETES SCREEN DIABETES SCREEN [facility] Start: 04-13-2024 End: 04-13-2024 Patient encounter procedure 04/13/2024 10:15 AM EST Office Visit OPHT Ophthalmology [address] [address] Nic Anderson MD [address] [facility] [place] [place] [address] 1 YEAR FOLLOW UP Ophthalmology Comment on above: 1 YEAR FOLLOW UP Start: 04-06-2024 End: 04-06-2024 Patient encounter procedure Ophthalmology Comment on above: Return in about 11 weeks (around 04/06/19) for Inj/OCT only. *11 W DTI AVASTIN OU Start: 03-15-2024 End: 03-15-2024 Patient encounter procedure 03/15/2024 1:00 PM EST Office Visit [facility] [address] [place] [address] Yellow Jacket, Mounika L, DO [address] [place] [address] Arrived [facility] 230 Comment on above: Arrived Start: 03-08-2024 End: 03-08-2024 Patient encounter procedure 03/08/2024 1:00 PM EST Office Visit [facility] [address] [place] [address] Mounika Dick, DO [address] [place] [address] Arrived [facility] 230 Comment on above: Arrived Start: 03-06-2024 End: 03-06-2024 Nursing evaluation of patient and report 03/06/2024 11:30 AM EST Nurse Visit Rheumatology [address] [facility] [place] [address] Nalini, Nurse Rheu [facility] [address] [facility] [place] [address] prolia Rheumatology Comment on above: prolia Start: 02-28-2024 End: 02-28-2024 ambulatory 02/28/2024 10:30 AM EST Results Only [facility] [address] [place] [address] [place] [address] labs [facility] Comment on above: labs Start: 02-09-2024 End: 11-27-2024 25-hydroxyvitamin D3 [Mass/volume] in Serum or Plasma VITAMIN D 25 HYDROXY Lab Routine Vitamin D deficiency Expected: 02/09/2024 (Approximate), Expires: 11/27/2024 [facility] Comment on above: Expected: 02/09/2024 (Approximate), Expi res: 11/27/2024 Start: 02-09-2024 Advance Directive Discussion Advance Directive Discussion [facility] Start: 02-09-2024 End: 11-27-2024 C reactive protein [Mass/volume] in Serum or Plasma C-REACTIVE PROTEIN Lab Routine Elevated sed rate Elevated C-reactive protein (CRP) Expected: 02/09/2024 (Approximate), Expires: 11/27/2024 [facility] Comment on above: Expected: 02/09/2024 (Approximate), Expi res: 11/27/2024 Start: 02-09-2024 End: 11-27-2024 CBC panel - Blood by Automated count COMPLETE BLOOD COUNT Lab Routine Anemia of chronic disease Expected: 02/09/2024 (Approximate), Expires: 11/27/2024 [facility] Comment on above: Expected: 02/09/2024 (Approximate), Expi res: 11/27/2024 Start: 02-09-2024 End: 11-27-2024 Comprehensive metabolic 2000 panel - Serum or Plasma COMPREHENSIVE METABOLIC PANEL Lab Routine Elevated LFTs Expected: 02/09/2024 (Approximate), Expires: 11/27/2024 [facility] Work Phone: Comment on above: Expected: 02/09/2024 (Approximate), Expi res: 11/27/2024 Start: 02-09-2024 End: 11-27-2024 Erythrocyte sedimentation rate SEDIMENTATION RATE, WESTERGREN Lab Routine Elevated sed rate Elevated C-reactive protein (CRP) Expected: 02/09/2024 (Approximate), Expires: 11/27/2024 [facility] Comment on above: Expected: 02/09/2024 (Approximate), Expi res: 11/27/2024 Start: 02-09-2024 Medicare Advantage Annual Wellness Visit Medicare Advantage Annual Wellness Visit [facility] Start: 02-09-2024 End: 05-10-2024 Urate [Mass/volume] in Serum or Plasma URIC ACID Lab Routine Hyperuricemia Expected: 02/09/2024 (Approximate), Expires: 05/10/2024 [facility] Comment on above: Expected: 02/09/2024 (Approximate), Expi res: 05/10/2024 Start: 01-30-2024 Medicare Annual Wellness (AWV) Medicare Annual Wellness (AWV) [facility] Start: 01-28-2024 End: 01-28-2024 Patient encounter procedure 01/28/2024 9:40 AM EST Office Visit [facility] [address] [place] [id number] Mounika Dick DO [address] [place] [address] Arrived [facility] 230 Comment on above: Arrived Start: 01-20-2024 End: 01-20-2024 Patient encounter procedure Ophthalmology Comment on above: Return in about 10 weeks (around 024) for DFE. *10 W DFE/OCT, AVAST IN OU Start: 11-30-2023 End: 11-30-2023 Patient encounter procedure 11/30/2023 10:30 AM EDT Office Visit [facility] [address] [place] [address] [facility] Start: 11-29-2023 End: 11-29-2023 Patient encounter procedure 11/29/2023 12:00 PM EDT Office Visit Rheumatology [address] [place] [address] Chalo Menjivar MD [address] [place] [address] Postmenopausal osteoporosis of multiple sites Rheumatology Comment on above: Postmenopausal osteoporosis of multiple sites Start: 11-11-2023 End: 11-11-2023 Patient encounter procedure Ophthalmology Comment on above: Return in about 7 weeks (around ) for Inj/OCT only, 7-8 weeks. *7-8 W DTI AVASTIN O U Start: 11-03-2023 End: 11-03-2023 Patient encounter procedure 11/03/2023 1:00 PM EDT Office Visit [facility] [address] [place] [address] [facility] Start: 11-02-2023 End: 11-01-2024 Bacteria identified [...] 11-02-2023 End: 11-02-2023 Patient encounter procedure [facility] 230 Comment on above: Arrived Start: 10-25-2023 End: 10-25-2023 Patient encounter procedure 10/25/2023 10:30 AM EDT Office Visit [facility] [address] [place] [address] [facility] Start: 10-10-2023 Covid-19 Vaccine ( season) Covid-19 Vaccine () [facility] Start: 10-10-2023 Covid-19 Vaccine ( season) Covid-19 Vaccine () [facility] Start: 10-10-2023 Influenza vaccination Influenza Vaccine (#1) [facility] Start: 10-06-2023 End: 10-06-2023 Patient encounter procedure 10/06/2023 3:00 PM EDT Office Visit [facility] [address] [place] [address] [facility] Start: 09-29-2023 End: 09-28-2024 CBC W Auto Differential panel - Blood CBC and differential Lab Routine Hypertension, unspecified type (CMS/HCC) Expected: 09/29/2023 (Approximate), Expires: 09/28/2024 [facility] Work Phone: Comment on above: Expected: [...] type (CMS/HCC) Expected: 09/29/2023 (Approximate), Expires: 09/28/2024 [facility] Comment on above: Expected: 09/29/2023 (Approximate), Expi res: 09/28/2024 Start: 09-29-2023 End: 09-28-2024 Thyrotropin [Units/volume] in Serum or Plasma Tsh+free t4 Lab Routine Hypothyroidism, unspecified type (CMS/HCC) Expected: 09/29/2023 (Approximate), Expires: 09/28/2024 [facility] Comment on above: Expected: 09/29/2023 (Approximate), Expi res: 09/28/2024 Start: 09-29-2023 End: 09-28-2024 Urinalysis with microscopic (reflex culture if indicated) Urinalysis with microscopic (reflex culture if indicated) Lab Routine Polyuria Expected: 09/29/2023 (Approximate), Expires: 09/28/2024 [facility] Comment on above: Expected: 09/29/2023 (Approximate), Expi res: 09/28/2024 Start: 09-29-2023 End: 09-29-2023 Patient encounter procedure [facility] 230 Comment on above: Arrived Start: 09-16-2023 End: 09-16-2023 Patient encounter procedure 09/16/2023 10:30 AM EDT Office Visit [facility] Ophthalmology [address] [place], [place] [id number] Brando Shields MD [address] [place] [address] *6 W DTI AVASTIN OU Ophthalmology Comment on above: *6 W DTI AVASTIN OU Start: 09-03-2023 End: 09-03-2023 Nursing evaluation of patient and report Rheumatology Comment on above: Prolia Prolia + Start: 08-25-2023 End: 08-25-2023 Patient encounter procedure 08/25/2023 1:15 PM EDT Office Visit [facility] [address] [place] [phone] Gunner Hidalgo DO [address] [facility] [address] [place] [address] MANUEL CARSON Start: 08-05-2023 End: 08-05-2023 Patient encounter procedure Ophthalmology Comment on above: Return in about 6 weeks (around 08/12/2023 ) for Inj/OCT only, OK to OB fill all green spots 1st . *6 W DTI AVASTIN OU Start: 07-01-2023 End: 07-01-2023 Patient encounter procedure 07/01/2023 8:45 AM EDT Office Visit [facility] Ophthalmology [address] [place] [address] Brando Shields MD [address] [place] [address] *4 W DTI AVASTIN OU Ophthalmology Comment on above: *4 W DTI AVASTIN OU Start: 02-08-2023 Advance Directive Discussion Advance Directive Discussion [facility] Start: 02-08-2023 Behavioral Health Screening Behavioral Health Screening [facility] Start: 02-08-2023 Depression Assessment Depression Assessment [facility] Start: 10-09-2022 Covid-19 Vaccine ( season) Covid-19 Vaccine ( season) [facility] Start: 10-09-2022 Influenza vaccination [facility] Start: 05-24-2022 COVID-19 VACCINE (5 - Pfizer series) COVID-19 VACCINE (5 - Pfizer series) [facility] Start: 03-20-2022 COVID-19 Vaccine (4 - Pfizer series) COVID-19 Vaccine (4 - Pfizer series) [facility] Start: 02-08-2022 ADVANCE DIRECTIVE DISCUSSION ADVANCE DIRECTIVE DISCUSSION [facility] Start: 02-08-2022 DEPRESSION ASSESSMENT DEPRESSION ASSESSMENT [facility] Start: 10-09-2021 Influenza vaccination [facility] Start: 03-27-2021 COVID-19 VACCINE (4 - Booster for Pfizer series) COVID-19 VACCINE (4 - Booster for Pfizer series) [facility] Start: 03-19-2021 COVID-19 VACCINE (4 - Booster for Pfizer series) COVID-19 VACCINE (4 - Booster for Pfizer series) [facility] Start: 02-08-2021 ADVANCE DIRECTIVE DISCUSSION ADVANCE DIRECTIVE DISCUSSION [facility] Start: 02-08-2021 DEPRESSION ASSESSMENT DEPRESSION ASSESSMENT [facility] Start: 10-09-2020 Influenza vaccination INFLUENZA (#1) [facility] Start: 02-24-2020 PNEUMOCOCCAL: 65+ (2 - PCV) PNEUMOCOCCAL: 65+ (2 - PCV) [facility] Start: 02-24-2020 PNEUMOCOCCAL: 65+ (3 - PCV) PNEUMOCOCCAL: 65+ (3 - PCV) [facility] Start: 11-29-2019 Adult depression screening assessment DEPRESSION SCREENING [facility] Start: 2017 RSV Vaccine (1 - 1-dose 75+ series) RSV Vaccine (1 - 1-dose 75+ series) [facility] Start: 2007 BONE DENSITY BONE DENSITY [facility] Start: 2007 Bone Density Screening Bone Density Screening [facility] Start: 2007 Screening for osteoporosis Bone Density Screening [facility] Start: 2002 RSV Vaccine (1 - 1-dose 60+ series) RSV Vaccine (1 - 1-dose 60+ series) [facility] Start: 1964 DTaP/Tdap/Td Vaccines (1 - Tdap) DTaP/Tdap/Td Vaccines (1 - Tdap) [facility] Start: 1961 Urine microalbumin profile [facility] Start: 1960 ANNUAL PCP TEAM CHRONIC DISEASE VISIT ANNUAL PCP TEAM CHRONIC DISEASE VISIT [facility] Start: 1960 Anxiety Screening Anxiety Screening [facility] Start: 1960 BP CONTROLLED (<130/80) BP CONTROLLED (<130/80) [facility] Start: 1960 Depression Screening Depression Screening [facility] Start: 1960 Diabetes mellitus screening Diabetes Screening [facility] Start: 1960 SPIROMETRY SPIROMETRY [facility] Start: 1942 Lipid panel Lipid Panel [facility] Start: 1942 Medicare Annual Wellness Visit Medicare Annual Wellness Visit (AWV) [facility] Start: 1942 Screening for osteoporosis Bone Density Scan [facility] Start: 1942 Thyroid stimulating hormone measurement TSH Level [facility] End: 12-27-2024 BD DXA TRABECULAR BONE SCORE (TBS) BD DXA TRABECULAR BONE SCORE (TBS) Radiology Routine Postmenopausal osteoporosis of multiple sites 1 Occurrences starting 11/28/2023 until 12/27/2024 [facility] Comment on above: 1 Occurrences starting 11/28/2023 until 12/27/2024 DXA Skeletal system.axial Views for bone density [facility] End: 12-27-2024 DXA Skeletal system.axial Views for bone density DXA-AXIAL SKELETON Radiology Routine Postmenopausal osteoporosis of multiple sites 1 Occurrences starting 11/28/2023 until 12/27/2024 [facility] Comment on above: 1 Occurrences starting 11/28/2023 until 12/27/2024 End: 12-27-2024 DXA-FOREARM SKELETON DXA-FOREARM SKELETON Radiology Routine Postmenopausal osteoporosis of multiple sites 1 Occurrences starting 11/28/2023 until 12/27/2024 [facility] Comment on above: 1 Occurrences starting 11/28/2023 until 12/27/2024 MG Breast - bilatera l Screening [facility] MG Breast - bilatera l Screening [facility] MG Breast - bilatera l Screening [facility] End: 10-21-2024 OCT MACULA CIRRUS OU (BOTH EYES) OCT MACULA CIRRUS OU (BOTH EYES) [facility] Imaging Routine 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, left eye, intermediate dry stage Pseudophakia 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 1 Occurrences starting 04/30/2023 until 10/21/2024 [facility] Work Phone: Comment on above: 1 Occurrences starting 04/30/2023 until 10/21/2024 URINARY TRACT INFECTION (HTRX) URINARY TRACT INFECTION (HTRX) Lab Routine Flank pain Ordered: 10/27/2023 [facility] Work Phone: Comment on above: Ordered: 10/27/2023 YAG CAPSULOTOMY OD (RIGHT EYE) YAG CAPSULOTOMY OD (RIGHT EYE) Ophthalmology Routine PCO (posterior capsular opacification), right 09/07/2024 3:40 PM EDT [facility] Immunizations Immunization Date Immunization Notes Care Provider [facility] 01-29-2023 Influenza, injectabl e, Madin Melina Canine Kidney, preservative free, quadrivalent Mounika Yellow Jacket DO Work Phone: [facility] 01-29-2023 influenza virus vaccine, unspecified formulation Nic Anderson MD Work Phone: [facility] 01-23-2022 SARS-CoV-2 (COVID-19 ) [id number] Noe LOZA [facility] 12-19-2021 Influenza, Seasonal, Quadrivalent, Adjuvanted Mounika Yellow Jacket DO Work Phone: [facility] 12-19-2021 Seasonal, trivalent, recombinant, injectable influenza vaccine, preservative free Mounika Yellow Jacket DO Work Phone: [facility] 12-19-2021 influenza virus vaccine, unspecified formulation Afshin Rocha MD Work Phone: [facility] 08-18-2021 influenza, injectabl e, quadrivalent, preservative free Mounika Yellow Jacket DO Work Phone: [facility] 12-25-2020 SARS-CoV-2 (COVID-19 ) mRNA [id number] vax Noe LOZA [facility] 03-29-2020 COVID-19 vaccine, ag e 12+ yr (PFIZER-BIONTPanvidea - PURPLE TOP) Nic Anderson MD Work Phone: [facility] Work Phone: Comment on above: Result Comment: 2021: [id number] 02-01-2021 SARS-CoV-2 (COVID-19 ) [id number] vaccine Noe LOZA [facility] 03-08-2020 COVID-19 vaccine, ag e 12+ yr (PFIZER-BIONTECH - PURPLE TOP) Nic Anderson MD Work Phone: [facility] Work Phone: Comment on above: Result Comment: 2021: [id number] 02-09-2020 SARS-CoV-2 (COVID-19 ) mRNA-[id number] vaccine Noe LOZA [facility] 09-25-2019 influenza virus vaccine, unspecified formulation Noe LOZA [facility] 09-25-2019 influenza, injectabl e, quadrivalent, preservative free Nic Anderson MD Work Phone: [facility] Work Phone: 09-22-2019 influenza, high-dose , quadrivalent vaccine (FLUZONE HIGH DOSE QUADRIVALENT) Nic Anderson MD Work Phone: [facility] Work Phone: 09-22-2019 zoster vaccine recombinant Nic Anderson MD Work Phone: [facility] Work Phone: 09-09-2019 influenza virus vaccine, unspecified formulation Noe LOZA [facility] 09-09-2019 influenza, injectabl e, quadrivalent, preservative free Nic Anderson MD Work Phone: [facility] Work Phone: 04-10-2019 zoster vaccine recombinant Nic Anderson MD Work Phone: [facility] Work Phone: 02-23-2019 pneumococcal polysaccharide vaccine, 23 valent Nic Anderson MD Work Phone: [facility] Work Phone: 12-19-2018 influenza, injectabl e, madin melina canine kidney, preservative free Nic Anderson MD Work Phone: [facility] Work Phone: 01-13-2018 influenza virus vaccine, unspecified formulation Noe LOZA [facility] 01-13-2018 influenza, injectabl e, quadrivalent, contains preservative Nic Anderson MD Work Phone: [facility] Work Phone: 11-12-2016 influenza, injectabl e, madin melina canine kidney, preservative free Nic Anderson MD Work Phone: [facility] Work Phone: 11-12-2016 Influenza, injectabl e, Madin [place] Canine Kidney, preservative free, quadrivalent Mounika Yellow Jacket DO Work Phone: [facility] 12-17-2015 influenza virus vaccine, unspecified formulation Noe LOZA [facility] 12-17-2015 influenza, injectabl e, quadrivalent, contains preservative Nic Anderson MD Work Phone: [facility] Work Phone: 12-17-2015 influenza, injectabl e, quadrivalent, preservative free Mounika Yellow Jacket DO Work Phone: [facility] 12-31-2014 pneumococcal conjuga te vaccine, 13 valent Mounika Yellow Jacket DO Work Phone: [facility] 11-30-2014 influenza, seasonal, injectable, preservative free Mounika Yellow Jacket DO Work Phone: [facility] 07-11-2009 pneumococcal polysaccharide vaccine, 23 valent Nic Anderson MD Work Phone: [facility] NEGATED: Highlighted row has not occurred!02-23-2019 influenza, high dose seasonal, preservative-free DO Roney Leroy Work Phone: [facility] Payers Date Payer Category Payer Medicare (Managed Care) 1.2. [id number] 2022 Medicare [id number] 2021 Medicare AETNA MEDICARE A ETNA MEDICARE PPO [id number] 2021-Present [phone] [address] [place] [address] PPO [id number] 2018 Self-pay [id number] 2017 Medicare [id number] .[id number] 1959 Medicare [id number] 2.16.840.1.606745.19 1942 Unknown [id number] 2.16.840.1.488665.3.579.2.5 93 1942 Unknown [id number] 2.16.840.1.296196.3.579.2.5 93 1942 Unknown [id number] 2.16.840.1.291560.3.579.2.5 93 1942 Unknown [id number] 2.16.840.1.732034.3.579.2.1 244 1942 Unknown [id number] 2.16.840.1.921579.3.579.2.7 27 1942 Unknown [id number] 2.16.840.1.400021.3.579.2.7 27 1942 Unknown [id number] 2.16.840.1.021624.3.579.2.1 259 1942 Unknown [id number] 2.16.840.1.216130.3.579.2.1 259 1942 Unknown [id number] 2.16.840.1.314875.3.579.2.1 259 1942 Unknown [id number] 2.16.840.1.793851.3.579.2.1 1942 Unknown [id number] 2.16.840.1.650839.3.579.2.1 1942 Unknown [id number] 2.16.840.1.752101.3.579.2.1 1942 Unknown [id number] 2.16.840.1.596016.3.579.2.1 1942 Unknown [id number] 2.16.840.1.286911.3.579.2.1 1942 Unknown [id number] 2.16.840.1.978844.3.579.2.1 1942 Unknown [id number] 2.16.840.1.221073.3.579.2.1 1942 Unknown [id number] 2.16.840.1.181317.3.579.2.1 1942 Unknown [id number] 2.16.840.1.773891.3.579.2.1 1942 Unknown [id number] 2.16.840.1.910356.3.579.2.1 1942 Unknown [id number] 2.16.840.1.362139.3.579.2.1 1942 Unknown [id number] 2.16.840.1.367438.3.579.2.1 1942 Unknown [id number] 2.16.840.1.367057.3.579.2.1 1942 Unknown [id number] 2.16.840.1.247373.3.579.2.1 259 1942 Unknown [id number] 2.16.840.1.656453.3.579.2.1 259 1942 Unknown [id number] 2.16.840.1.502392.3.579.2.1 259 Medicare [id number] Private Health Insurance MEB NVTYD [id number] Private Health Insurance [id number] 2.16.840.1.310795.19 Unknown [id number] Unknown [id number] 2.16.840.1.882109.3.579.2.5 31 Social History Date Type Detail Facility Start: 12-10-2018 End: 11-29-2023 Tobacco smoking status NHIS Ex-smoker (finding) [facility] Start: 1940 Sex Assigned At Female [facility] End: 06-21-1974 History of tobacco use Current smoker [facility] Start: 05-06-2021 End: 10-05-2024 Alcohol intake Current drinker of alcohol (finding) [facility] Start: 1940 Sex Assigned At Not on file [facility] Start: 03-20-2020 End: 12-08-2022 Exposure to SARS-CoV-2 (event) Not sure [facility] Start: 11-28-2018 End: 08-03-2022 Sex Assigned At [employer] Other End: 06-21-1974 History of tobacco use Cigarette Smoker [facility] Start: 02-22-2013 End: 11-29-2023 Tobacco use and exposure Smokeless tobacco non-user [facility] Start: 01-10-2012 End: 04-18-2024 Tobacco smoking status Never [facility] [place] Start: 11-24-2021 Tobacco Comment socially only [facility] Start: 11-28-2018 End: 08-03-2022 History of Social function [facility] Start: 12-08-2022 Alcohol Comment special occasions [facility] Work Phone: Start: 05-19-2022 End: 08-13-2022 Tobacco smoking status NHIS Never smoked tobacco [facility] Within the last year , have you been afraid of your partner or ex-partner? No [facility] Do you belong to any clubs or organizations such as baptism groups, unions, fraternal or athletic groups, or [...] Start: 05-11-2024 End: 05-11-2024 Sex Female (finding) [facility] Medical Equipment Procedure Code Equipment Code Equipment Origin al Text Equipment Identifier Dates Bernard Bn Smplx Hv Gentamicin Fd - [id number] Start: 06-25-2016 Bernard Bn Smplx Hv Gentamicin Fd - [id number] Start: 06-25-2016 Cornea Tissue Pre-Loaded Dmek - [id number] Start: 09-09-2020 Cornea Tissue Pre-Loaded Dmek - [id number] Start: 04-28-2021 Gas Ispan Constellation Intraocular Vision System Sf6 125gm - [id number] Start: 09-09-2020 Gas Ispan Constellation Intraocular Vision System Sf6 125gm - [id number] Start: 04-28-2021 Lens Iol 0d +23 Savi Uv Abs - [id number] Start: 09-09-2020 Lens Iol 0d +23 Savi Uv Abs - [id number] Start: 04-28-2021 Component Person a 7 Standard Cocr Femoral Cemented Posterior - [id number] Start: 06-25-2016 Component 32mm A ll Poly Patellar Psn - [id number] Start: 06-25-2016 Surface Persona 6-9 Cd Vivacit-E 10mm Articular Constrain Posterior - [id number] Start: 06-25-2016 Baseplate Person a 5d D Tivanium Tibial Cemented Stem Knee Left - [id number] Start: 06-25-2016 Goals Date Patient Goal Desired Activity /State Functional Status Date Assessment Result Facility 11-18-2021 Functional Status N/A [facility] 06-26-2016 Are you deaf, or do you have serious difficulty hearing No 06/26/2016 5:00 PM EDT Ying Justin RN No [facility] 06-26-2016 Are you blind, or do you have serious difficulty seeing, even when wearing glasses No 06/26/2016 5:00 PM JOCELINT Ying Justin RN No [facility] 06-26-2016 Do you have serious difficulty walking or climbing stairs No 06/26/2016 5:00 PM JOCELINT Ying Justin, [place] No [facility] 06-26-2016 Do you have difficul ty dressing or bathing No 06/26/2016 5:00 PM JOCELINT Ying Jusitn, [place] [facility] 06-26-2016 Because of a physica l, mental, or emotional condition, do you have difficulty doing errands alone such as visiting a physician's office or shopping No 06/26/2016 5:00 PM JOCELINT Ying Justin RN No [facility] Mental Status Date Assessment Result Facility 06-26-2016 Because of a physica l, mental, or emotional condition, do you have serious difficulty concentrating, remembering, or making decisions No 06/26/2016 5:00 PM Ying Hardin RN No [facility] Clinical Notes 03-17-2016 to 10-05-2024 Patient InstructionsBrando Shields MD - 10/05/2024 11:18 AM EDTTelephone Encounter - Anabelle S Keita, AUD - 09/20/2024 2:30 PM EDTTelephone Encounter - Anabelle Keita, AUD - 09/20/2024 2:30 PM EDT Note Date & Type Note Facility 10-05-2024 Note Date of Procedure 10/05/2024 [facility] Protocol Safety Checklist A moment of CARE [...] Procedure Medications None. Home Going Prescription None. [facility] 10-05-2024 Note Date of Procedure 10/05/2024 [facility] Protocol Safety Checklist A moment of CARE [...] Procedure Medications None. Home Going Prescription None. [facility] 10-05-2024 Instructions Brando Shields MD - [...] than dabbing lightly with a tissue An itvo-fnu-maecxih pain reliever (i.e. Tylenol) can be used [...] If it is after hours please call [phone] which will give instructions on how to reach the eye doctor supervisor contact and service clerks documented in this encounter [facility] 10-05-2024 Note Date of Procedure 10/05/2024. [...] Eye Hypofluorescence. [facility] 10-05-2024 Note HNO ID: [id number] Author: BRANDO SHIELDS MD Service: ? Author [...] agree with all of its relevant components. [facility] 10-05-2024 History of Present illness Narrative Referred [...] its relevant components. documented in this encounter [facility] 09-20-2024 Telephone encounter Note Patient's new rapid exchanged (L) aid was received from [employer] (SN: [id number]). Placed on ob scrub tech that was being held for pt in [employer]. Programmed to user settings. Called pt for orange picker. She will orange picker in [place] office on 09-21-24. [place] for service [facility] Work Phone: 09-20-2024 Miscellaneous Notes Patient's new rapid exchanged (L) aid was received from [employer] (SN: [id number]). Placed on ob scrub tech that was being held for pt in [employer]. Programmed to user settings. Called pt for orange picker. She will orange picker in [place] office on 09-21-24. [place] for service documented in this encounter [facility] 09-13-2024 Note HNO ID: [id number] Author: DAVID TOMLIN OD Service: ? Author Type: ENRICHMENT DIRECTOR Type: Progress Notes Filed: 09/13/2024 11:29 Note [...] consistent clarity September 13, 2024 11:26 AM [facility] 09-07-2024 Instructions Jessica Garcia V, MD - 09/07/2024 3:40 PM [...] so we recommend you come with a rivet driver. You will then be scheduled for a follow up in approximately one week. If you notice any of the following symptoms of retinal detachment, please call our office at : - Flashes of light - Increased number of floaters or large floaters - Curtains, veils, or spider web pattern over vision documented in this encounter [facility] 09-07-2024 Note HNO ID: [id number] Author: JESSICA GARCIA MD Service: ? Author [...] patient was offered a surgery/procedure at a [facility] facility. The surgeon/proceduralist and patient have [...] the consent form. -F/U 1-2 weeks with special weapons unit officer (Fred) I have confirmed and edited as [...] GARCIA MD September 07, 2024 3:14 PM [facility] 09-07-2024 History of Present illness Narrative The [...] patient was offered a surgery/procedure at a [facility] facility. The surgeon/proceduralist and patient have [...] the consent form. -F/U 1-2 weeks with special weapons unit officer (Fred) I have confirmed and edited as necessary the relevant HPI, ophthalmic history, ROS, and the neuro exam findings as obtained by others. I have seen and examined Fantasma eLwis. I have discussed the case and the management of this patient's care with the Resident/Fellow, if applicable. I also have reviewed and agree with the assessment and plan as stated above and agree with all of its relevant components. Jessica AGRCIA MD September 07, 2024 3:14 PM ASSESSMENT/PLAN: [...] 2024 2:49 PM documented in this encounter [facility] 09-07-2024 Note HNO ID: [id number] Author: LIZZY GALVAN OD Service: ? Author Type: ENRICHMENT DIRECTOR Type: Progress Notes Filed: 09/07/2024 15:41 Note [...] Galvan OD September 07, 2024 2:49 PM [facility] 09-06-2024 History of Present illness Narrative Images from the original note were not included. [address], [address] [facility], [address] P: [phone] F: [phone] HPI Historian of HPI: patient Fantasma Lewis [...] 08-28-2024 Telephone encounter Note Signed- Thank you! [facility] 08-28-2024 Miscellaneous Notes Signed- Thank you! Prolia CAM pended. documented in this encounter [facility] 08-28-2024 Telephone encounter Note Prolia CAM pended. [facility] 08-24-2024 History of Present illness Narrative [...] (Cymbalta) [address] capsule Elderberry-Vitamin C-Zinc ([employer] [facility] PO) Take by mouth levothyroxine [...] m Physical Exam Exam conducted with a scale agent present. HENT: Head: Normocephalic. Cardiovascular: Rate and [...] year for recheck documented in this encounter [facility] 08-21-2024 Telephone encounter Note Pt read [employer] message. [facility] 08-21-2024 Miscellaneous Notes Pt read [employer] message. Please call patient Thank you for [...] uric acid 3.7; documented in this encounter [facility] 08-19-2024 Telephone encounter Note Please call patient Thank you for the update. The borderline calcium is likely from the water pill- will monitor with primary care provider. Not concerning :) Thank you. [facility] 08-17-2024 Telephone encounter Note Please Call [...] 0.3, vitamin D 47.1, uric acid 3.7; [facility] 08-14-2024 Evaluation note Diagnosis Onset Date [...] on mammogram resolved September 11, 2024 1:29pm [facility] Work Phone: 1(959) 907-302207-07-2025 Evaluation note* Diagnosis Onset Date Resolution Status [...] and diarrhea acute A ugust 2024 10:44am [facility] Work Phone: 1(325) 344-726507-03-2025 Telephone encounter Note* Telephone Encounter - Felicia Perry LPN - 08/10/2024 2:58 PM EDT Patient has been scheduled. [facility]07-03-2025 Miscellaneous Notes* Telephone Encounter - Felicia [...] up with her on cell phone at [phone] per her request. Please review and reach out to pt accordingly. Please reroute back to scheduling if further appointment needed. * Telephone Encounter - Swathi Mcclure - 08/10/2024 9:34 AM EDT Pt requesting to schedule next prolia injection. Patient has been identified by name and birthdate. Duration of symptoms: N/A Person calling: self Call patient at: on cell [phone] (home) [phone] (cell) Was an appointment scheduled: No Closing statement: Results or non-symptom based questions: Thank you for calling [facility], your call will be returned within the next business day. Swathi Morgan [facility] Telephone encounter Note * Telephone Encounter - Chalo Menjivar MD - 08/10/2024 2:42 PM EDT Please call patient/family Please remind patient osteoporosis treatment prolia injection is every 6months with nurse. Last prolia 02/2024. Please assist with scheduling. Thank you. [facility]07-03-2025 Telephone encounter Note* Telephone Encounter - [...] up with her on cell phone at [phone] per her request. Please review and reach out to pt accordingly. Please reroute back to scheduling if further appointment needed. [facility]07-03-2025 Telephone encounter Note* Telephone Encounter - Swathi Mcclure - 08/10/2024 9:34 AM EDT Pt requesting to schedule next prolia injection. Patient has been identified by name and birthdate. Duration of symptoms: N/A Person calling: self Call patient at: on cell [phone] (home) [phone] (cell) Was an appointment scheduled: No Closing statement: Results or non-symptom based questions: Thank you for calling [facility], your call will be returned within the next business day. Swathi Morgan [facility]05-22-2025 NoteHNO ID: [id number] Author: BRANDO SHIELDS MD Service: ? Author [...] PCO OD - Recommend YAG OD in [place]; went to Dr. Anderson in [facility] but too long wait - Monitor Dry [...] agree with all of its relevant components. [facility]05-19-2025 Evaluation note* Diagnosis Onset Date Resolution Status [...] 9:38am Nausea acute August 14, 2024 9:38am [facility] Work Phone: 1(288) 751-245203-11-2025 NoteReminders From: Mitra Ding To: - Administrative; [...] ? 8 oz (237 mL) of milk, vxrwtto-xulwvzesobkq-tlmob milk, and calcium- fortifiedfruit juice. Calcium-fortified means [...] Spinach (cooked), rhubarb, beets, sweet potatoes, and Tristanian chard. ? Peanuts. ? Potato chips, sami fries, and baked potatoes with skin on. ? Nuts and nut products. ? Chocolate. ??? If you regularly take a diuretic medicine, make sure to eat at least 1 or 2 servings of fruits or vegetables that are high in potassium each day. These include: ? Avocado. ? Banana. ? [place], prune, carrot, or tomato juice. ? Baked [...] fish oil, or vitamin B6. ??? Take ofpc-ogw-ieavqsi and prescription medicines only as told by your health (more content not included)...[facility]03-06-2025 NoteHNO ID: [id number] Author: NIC ANDERSON MD Service: ? Author [...] all of its relevant components. Nic Anderson, [facility]03-06-2025 History of Present illness Narrative* Nic [...] components. Nic Anderson MD [facility] NoteDate of Procedure 04/06/2024 [facility] Protocol Safety Checklist Sign In: A moment [...] follow up management communicated. Specimen containers correctly labeled.[facility]02-27-2025 NoteDate of Procedure 04/06/2024 [facility] Protocol Safety Checklist Sign In: A moment [...] foreign bodies accounted for. Specimen containers correctly labeled.[facility] 04-06-2024 NoteDate of Procedure 04/06/2024. Management Department Chair Information Azul Shankar, COA . OCT Macula Interpretation Right Eye Abnormal foveal contour. Findings include Drusen, RPE Irregularity, Atrophy; Negative for Intraretinal fluid, Subretinal fluid. Left Eye Abnormal foveal contour. Findings include Drusen, RPE Irregularity, Atrophy; Negative for Intraretinal fluid, Subretinal fluid. Interval Change Right Eye Stable. Left Eye Stable.[id number] Instructions* Patient Instructions* Brando Shields MD - [...] than dabbing lightly with a tissue An aobz-nmr-qbggcfg pain reliever (i.e. Tylenol) can be used [...] If it is after hours please call [phone] which will give instructions on how to reach the eye doctor supervisor contact and service clerks documented in [facility] History of Present illness Narrative* Brando [...] all ofits relevant components. documented in [facility]-2025 NoteHNO ID: [id number] Author: BRANDO SHIELDS MD Service: ? Author [...] agree with all of its relevant components. [facility]02-10-2025 Telephone encounter Note* Telephone Encounter - Nathaly [...] of its relevant components. Nic Anderson MD [facility] Work Phone: 1(450) 592-697002-10-2025 Miscellaneous Notes* Telephone Encounter - Nathaly Munguia [...] components. Nic Anderson MD documented in [facility]-2025 History of Present illness Narrative* Mounika Dick DO - 03/15/2024 1:00 PM EST [facility] Family [facility] KIEL Pham SUBJECTIVE: HPI: Fantasma Lewis [...] replacement right partial Shingles documented in this encounterTexas County Memorial [id number] History of Present illness Narrative* Mounika Dick [...] should go to her orthopedic doctor in [place] and figured she would start here. I [...] situ (DCIS) of right breast Dysgeusia Hyperlipidemia ([facility]/HCC) Hypertension ([facility]/HCC) Hypothyroidism ([facility]/HCC) Irritable bowel syndrome with diarrhea Kidney stone [...] leg edema Mild intermittent asthma without complication ([facility]) Hip pain, bilateral Osteopenia of multiple sites Pain in toe of right foot PCO (posterior capsular opacification), bilateral Postlaminectomy syndrome, lumbar region Primary osteoarthritis of both knees Pseudogout involving multiple joints Pseudophakia Secondary osteoarthritis of multiple sites Status post bilateral knee replacements Vitamin D deficiency Overweight (BMI 25.0-29.9) SVT (supraventricular tachycardia) ([facility]) Vertigo Past Medical History: Diagnosis Date Appendicitis Arthritis Asthma ([facility]) Bronchitis Cataract Chicken pox Goiter ([facility]) Gout History of back surgery History of breast biopsy left breast, benign History of colonoscopy 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 Hypothyroid ([facility]) Kidney stone removed Measles Microcalcification of right breast on mammogram 09/29/2023 Migraine ([facility]) Mumps Pneumonia S/P knee replacement right partial Shingles documented in this encounterTexas County Memorial [id number] Telephone encounter Note* Telephone Encounter - Chalo [...] above. Please process accordingly. Chalo Menjivar MD [facility]01-28-2025 Miscellaneous Notes* Telephone Encounter - Chalo Menjivra MD - 03/07/2024 5:48 PM EST Notify [...] 11:30 AM [facility] NALINI SAHARA EST [facility] 10/23/2024 12:20 PM [facility] NALINI CBC: Latest Ref Rng & Units [...] diagnoses: Vitamin D deficiency documented in [facility]-2025 Telephone encounter Note * Telephone Encounter [...] 11:30 AM [facility] NALINI SAHARA EST [facility] 10/23/2024 12:20 PM [facility] NALINI CBC: Latest Ref Rng & Units [...] Menjivar MD Assoc. diagnoses: Vitamin D deficiency [facility]01-27-2025 Telephone encounter Note* Telephone Encounter - Carly Butts MA - 03/06/2024 7:53 AM EST Pt was notified via . [facility]01-27-2025 Miscellaneous Notes* Telephone Encounter - Carly [...] D 47.1, uric acid3.7; documented in this encounterSouth[facility]01-26-2025 Telephone encounter Note * Telephone Encounter - Chalo Menjivar MD - 03/05/2024 2:18 PM EST Please Call patient if MyChart note not read to review results/released to My Chart if tests completed at [facility]: normal labs and no inflammation. Continue same vitamin D intake with food. Recheck nonfasting labs in 6months with prolia visit.The orders have been placed. Happy to further review and discuss at follow up visit. Thank you. 03/02/24 borderline calcium 10.3;normal rest of cmp, cbc, esr 13, crp 0.3, vitamin D 47.1, uric acid3.7; [facility]12-20-2024 History of Present illness Narrative* Mounika Chan Mayelin, DO - 01/28/2024 9:40 AM EST Images from the original note were not included. [place], [place] SUBJECTIVE: HPI: Fantasma Lewis is a [...] replacement right partial Shingles documented in this encounterTexas County Memorial [id number] History of Present illness Narrative* CRISSY Caballero - 01/26/2024 2:55 PM EST Images from the original note were not included. [address] , [address] [facility], [address] P: [phone] F: [phone] HPI Historian of HPI: patient Fantasma Lewis [...] URINARY TRACT INFECTION (HTRX) documented in this encounterTexas County Memorial HospitalYupkzizgha55-96-7715 Instructions* Patient Instructions* Brando Shields MD - [...] than dabbing lightly with a tissue An idjx-poh-rbxjurq pain reliever (i.e. Tylenol) can be used [...] If it is after hours please call [phone] which will give instructions on how to reach the eye doctor supervisor contact and service clerks documented in [facility]-2024 NoteDate of Procedure 01/20/2024 [facility] Protocol Safety Checklist Sign In: A moment [...] for, Post-procedure follow up management communicated. No specimens.[facility]12[facility] NoteDate of Procedure 01/20/2024 [facility] Protocol Safety Checklist Sign In: A moment [...] follow up management communicated. Specimen containers correctly labeled.[facility]12-12-2024 NoteDate of Procedure 01/20/2024. Management Department Chair Information [employer]inder[employer] Manager: Dena. Interpretation Right Eye Abnormal foveal contour. Findings include Drusen, RPE Irregularity, Atrophy; Negative for Intraretinal fluid, Subretinal fluid. Left Eye Abnormal foveal contour. Findings include Drusen, RPE Irregularity, Atrophy; Negative for Intraretinal fluid, Subretinal fluid. Interval Change Right Eye Stable. Left Eye Stable.[id number] History of Present illness Narrative* Brando Shields [...] all ofits relevant components. documented in [facility] encounterSouth[facility] Center12-[facility]2024 NoteHNO ID: [id number] Author: BRANDO SHIELDS MD Service: ? Author [...] agree with all of its relevant components. [facility]12-04-2024 History of Present illness Narrative* Jah Sutherland NP - 01/12/2024 12:50 PM EST Images from the original note were not included. [address] , [address] [facility] [address] P: [phone] F: [phone] HPI Historian of HPI: patient Fantasma Lewis [...] 16 g; Refill: 0 documented in this [facility]10-22-2024 History of Present illness Narrative* Irlanda Weaver [...] 12/03/2023 10:14 AM EDT documented in this [facility]10-21-2024 History of Present illness Narrative* Chalo Menjivar [...] food, hctz. Was able to travel to [place] last year. [facility] b[facility] osteopenia/stable 10/2022 +COVID19 infection could [...] Not taking calcium. 11/2021 fell going to [employer], chipped a tooth. Had kidney stone 3weeks [...] Has minimal AM stiffness. Back from wedding [place]. Will have another family wedding in [place]. COVID vaccine 03/08/20, 03/29/20, 12/25/20, 01/23/22. Feels [...] 11/24/21:2weeks ago fell/tripped on parking lot to [employer] outside on L shoulder, L wrist, chipped [...] dryer moved upstairs. Dropped 10bags off at [facility]. Joint pain better with mobic. Has been [...] neurosurgery, weekly fosamax for abnormal BMD/on alf arimidex,see oncology, follow up with PCP/ENT for [...] neurosurgery, may consult bisphosphonates if abnormal BMD/on alf arimidex, see oncology, follow [...] lower leg. Minimal AM stiffness. Back from [email or web address] [place] and visiting [employer] [place]. Has two spots of psoriasis on [...] winter. Better with sunlight. Saw derm in [place] but no change. 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 (socially only) Alcohol Use: Yes (socially) TESTS: 07/13/23 normal vitamin D 46.2; 06/03/23 eye exam age related macular degeneration treated with avastin, fuch's dystrophy, pseudophakia, dry eyes syndrome. 06/03/23 normal vitamin D 60.7; 03/05/23 low vitamin D 28.1;high glucose 137;normal cbc, cmp, esr 5, crp 0.4; [facility] bmd osteopenia/stable L1-4 1.298g/cm2, tscore 2.3, [...] 8, crp 0.9, vitamin D 39.3, vitamin a00-4421, uric acid 4.1; [facility] 08/26/20 bmd osteopenia/improved spine/decreased forearm L1-4 1.348g/cm2, [...] ast 14, alt 8, uric acid 4.5 [facility] 08/19/18 osteopenia L1-4 1.242g/cm2, tscore 1.8, zscore 4.3;L fem neck 0.796g/cm2, tscore-0.5, zscore1.7;L total hip 0.966g/cm2, tscore0,zscore1.7;R fem neck 0.802g/cm2, tscore-0.4, zscore1.9;L forearm 0.617g/cm2, tscore-1.2, zscore1.6; 04/21/18 high vitamin b12>2000;NL cbc, cmp, esr 13 (26), crp 0.6 (1.4), uric acid 3.9, vitamin D 39.8; 07/22/17 high esr 26 (14), crp 1.4 (1.6);normal rest of cbc, cmp, uric acid 4.6, vitamin D 54.2; [facility] note Hernan Lyons, OD 10/05/16: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 Cataract OU. Posterior vitreal detachment OU. F/u 6months complete eye exam with OCT-Rtesting. 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 Dropped 10bags off at [facility]. Joint pain better with mobic. Had Pfizer [...] Last year fell/tripped on parking lot to [employer] outside on L shoulder, L wrist, chipped tooth, broke glasses. Did not have her cane.OFF plaquenil 07/22/21. 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 Pain Worse with cold, rainy weather. Taking tylenol 2+ per day. due for labs. Due for bmd after 08/26/22. missed fosamax/seeing GI for GI upset/possible IBS, Not taking calcium. 11/2021 fell going to [employer] game, chipped a tooth. Had kidney stone 3weeks afterwards. tibial psoriasis.04/14/22 eye exam. 02/23/22 s/p right eye excisio corneal lesion. Occasional more if traveling. Hard to take on and off rings swelling. Back from [place]. Was able to travel to [place] last year. [facility] bmd osteopenia/stable 10/2022 +COVID19 infection could [...] 0, pain 50%;08/22/14 DURGA 0, pain 70%;11/22/13 DRUGA 0, pain 0%;02/22/13 DURGA 0, pain 0%;07/13/12 DURGA 0, pain 30%;02/10/12 DURGA 1, pain 100%;11/25/11 DURGA 0.5, pain 30%;09/25/11 DURGA 1, pain 40%; 12/09/20 obtain medical release for bone mineral density results from [facility] 02/10/12=20mg kenalog R trochanteric bursa in future [...] more than 50% of the phone or iyuj-cf-kacq time in counseling, explanation of diagnosis, and planning of further management, I spent a total of 30 minutes on the date of the service which included preparing to talk with the patient, txua-md-crxrpdgskbk care, completing clinical documentation, obtaining and/or reviewing [...] MD cc Robert Crocker II, MD;Dr.Paul Leroy [address] [facility] [place] [address] documented in this encounterSouthwest [facility] Center10-21-2024 NoteHNO ID: [id number] Author: CHALO MENJIVAR MD Service: ? Author [...] food, hctz. Was able to travel to [place] last year. [facility] bmd osteopenia/stable 10/2022 +COVID19 infection could [...] prn lidocaine if approved, (more content not included)...[facility]10-20-2024 Instructions* Patient Instructions* Chalo Menjivar MD - [...] 137;normal cbc, cmp, esr 5, crp 0.4; [facility] bmd osteopenia/stable BONE MINERAL DENSITY PATIENT [...] your usual activities immediately. documented in this encounterSouthwest [facility] Center10-03-2024 NoteDate of Procedure 11/11/2023. Management Department Chair Information Bindery Manager: af. Interpretation Right Eye Abnormal foveal contour. Findings include Drusen, RPE Irregularity, Atrophy; Negative for Intraretinal fluid, Subretinal fluid. Left Eye Abnormal foveal contour. Findings include Drusen, RPE Irregularity, Atrophy; Negative for Intraretinal fluid, Subretinal fluid. Interval Change Right Eye Stable. Left Eye Stable.[id number] NoteDate of Procedure 11/11/2023 [place] Protocol Safety Checklist Sign In: A moment [...] foreign bodies accounted for. Specimen containers correctly labeled.[facility] 11-11-2023 NoteDate of Procedure 11/11/2023 [place] Protocol Safety Checklist Sign In: A moment [...] follow up management communicated. Specimen containers correctly labeled.[facility]10-03-2024 Instructions* Patient Instructions* Brando Shields MD [...] than dabbing lightly with a tissue An ubbz-txi-dggdllk pain reliever (i.e. Tylenol) can be used [...] If it is after hours please call [phone] which will give instructions on how to reach the eye doctor supervisor contact and service clerks documented in this encounterSouthwest General Health Center10-03-2024 NoteHNO ID: [id number] Author: BRANDO SHIELDS MD Service: ? Author [...] agree with all of its relevant components. [facility]10-03-2024 History of Present illness Narrative* Brando Shields [...] all ofits relevant components. documented in this encounterSouthwest General Health Center09-25-2024 History of Present illness Narrative* Irlanda Weaver MA - 11/03/2023 1:00 PM EDT Patient was in today for a two week follow up on new hearing aids. Patient feels she is hearing well. She did not ask for any adjustments. She did mention that she still has trouble hearing on landline. I advised lifting the ob scrub tech to deliver sound into hearing aid. Patient [...] in approx one year. documented in this encounterTexas County Memorial HospitalImqpqnyrsv04-09-8738 History of Present illness Narrative* Mounika Dick DO - 11/02/2023 10:40 AM EDT Images from the original note were not included. Flowsheet Row Office Visit from 11/02/2023 in [facility] with Mounika Dick DO Hospital Information Discharged To: Home Setting Discharge Hospital [facility] Diagnosis UTI Discharge Date 10/27/23 Engagement [...] 10,000 colonies/mL URINE CULTURE, ROUTINE Performed at: [facility] URINE CULTURE, ROUTINE [address], [place] [id number] URINE CULTURE, ROUTINE Compensation Associate: Kev Choi PhD, Phone: [phone] C. DIFFICILE PCR Collection Time: 11/01/23 7:00 [...] E COLI SHIGA TOXIN EIA Performed at: [facility] E COLI SHIGA TOXIN EIA [address], [place] [id number] E COLI SHIGA TOXIN EIA Compensation Associate: Kev Choi PhD, Phone: [phone] ASSESSMENT AND PLAN: Assessment/Plan Diagnoses and all [...] replacement right partial Shingles documented in this encounterTexas County Memorial [id number] History of Present illness Narrative* CRISSY Caballero [...] (Cymbalta) [address] capsule Elderberry-Vitamin C-Zinc (Openera GUMQuantumSphere PO) Oral levothyroxine (SYNTHROID) 75 mcg, Oral, [...] URINARY TRACT INFECTION (HTRX) documented in this encounterTexas County Memorial [id number] Telephone encounter Note* Telephone Encounter - Gisell Vizcarra - 10/19/2023 12:50 PM EDT Spoke to pt over the phone, pt verbally understood results and had no questions during time of call. [facility] HospitalUdlpueuhah81-15-1574 Miscellaneous Notes* Telephone Encounter - Gisell Vizcarra [...] She does needan antibiotic. documented in this encounterTexas County Memorial HospitalXqculokdqc65-70-9295 Telephone encounter Note* Telephone Encounter - Jah Sutherland NP - 10/19/2023 12:00 PM EDT Please notify patient that her urine culture is negative and she does not have a UTI. She does needan antibiotic. [facility] HospitalHvcrvclrlb90-24-5259 History of Present illness Narrative* Jah Sutherland NP - 10/18/2023 10:50 AM EDT HPI: Historian of HPI: patient Fantasma Lewis is a 83 y.o. female who presents today to the Urgent Care with the following complaints and denials which have been present for 2 week(s) I have IBS. Wednesday I went to the [facility] and got the azo strips and it was positive. I havent felt good. Admits to vomiting x1 Hx of kidney stones many years ago Admits to pressure and urinary frequency when urinating Admits that she went to [facility] clinic last Wednesday and they gave her [...] Protein: Negative PH: 6.0 Blood: Negative Specific [place]: 1.020 Ketone: Negative Glucose: Negative Neg Neg [...] frequency and burning. She was seen at [facility] last week and treated with Keflex. [...] 14 capsule; Refill: 0 documented in this encounterTexas County Memorial HospitalQcnfqrsisn43-59-9928 Telephone encounter Note* Telephone Encounter - Chalo [...] above. Please process accordingly. Chalo Menjivar MD [facility]09-05-2024 Miscellaneous Notes* Telephone Encounter - Chalo [...] 365 Days Visit Type Date Time Department [facility] 11/29/2023 12:00 PM [facility] NALINI CBC: None on file [...] Lab Orders None ...........................................0 documented in this encounterSouthwest General Health Center09-05-2024 Telephone encounter Note * Telephone Encounter [...] 365 Days Visit Type Date Time Department [facility] 11/29/2023 12:00 PM [facility] NALINI CBC: None on file [...] Future (Single Instance) Lab Orders None ...........................................0 [facility]08-28-2024 History of Present illness Narrative* Irlanda [...] two week follow up. documented in this encounterTexas County Memorial HospitalZfdzxmqkrn04-88-9602 History of Present illness Narrative* Mounika Rocio [...] replacement right partial Shingles documented in this encounterTexas County Memorial HospitalAydbghchoa64-65-8559 NoteDate of Procedure 09/16/2023 [place] Protocol Safety Checklist Sign In: A moment [...] foreign bodies accounted for. Specimen containers correctly labeled.[facility] 09-16-2023 NoteDate of Procedure 09/16/2023 [place] Protocol Safety Checklist Sign In: A moment [...] follow up management communicated. Specimen containers correctly labeled.[facility]08-08-2024 Instructions* Patient Instructions* Brando Shields MD [...] than dabbing lightly with a tissue An xcfz-bqv-lwlzgfq pain reliever (i.e. Tylenol) can be used [...] If it is after hours please call [phone] which will give instructions on how to reach the eye doctor supervisor contact and service clerks documented in this encounterSouthwest General Health Center08-08-2024 NoteDate of Procedure 09/16/2023. Management Department Chair Information Bindery Manager: Dena. Interpretation Right Eye Abnormal foveal contour. Findings include Drusen, RPE Irregularity, Atrophy; Negative for Intraretinal fluid, Subretinal fluid. Left Eye Abnormal foveal contour. Findings include Drusen, RPE Irregularity, Atrophy; Negative for Intraretinal fluid, Subretinal fluid. Interval Change Right Eye Stable. Left Eye Stable.[id number] History of Present illness Narrative* Brando Shields [...] all ofits relevant components. documented in this encounterSouthwest General Health Center07-25-2024 Telephone encounter Note * Telephone Encounter [...] for anti-vegf OD agree as per above [facility] Work Phone: 1(631) 324-547307-25-2024 Miscellaneous Notes* Telephone Encounter - Shirley Jordan [...] agree as per above documented in this encounterSouthwest General Health Center06-27-2024 NoteDate of Procedure 08/05/2023 [place] Protocol Safety Checklist Sign In: A moment [...] follow up management communicated. Specimen containers correctly labeled.[facility]06-27-2024 NoteDate of Procedure 08/05/2023 [place] Protocol Safety Checklist Sign In: A moment [...] foreign bodies accounted for. Specimen containers correctly labeled.[facility] 08-05-2023 Instructions* Patient Instructions* Brando Shields [...] than dabbing lightly with a tissue An hnle-kxe-xihuhbi pain reliever (i.e. Tylenol) can be used [...] If it is after hours please call [phone] which will give instructions on how to reach the eye doctor supervisor contact and service clerks documented in this encounterSouthwest General Health Center06-27-2024 NoteDate of Procedure 08/05/2023. Management Department Chair Information Bindery Manager: Dena. Interpretation Right Eye Abnormal foveal contour. Findings include Drusen, RPE Irregularity, Atrophy; Negative for Intraretinal fluid, Subretinal fluid. Left Eye Abnormal foveal contour. Findings include Drusen, RPE Irregularity, Atrophy; Negative for Intraretinal fluid, Subretinal fluid. Interval Change Right Eye Stable. Left Eye Stable.[id number] History of Present illness Narrative* Brando Shields [...] all ofits relevant components. documented in this encounterSouthwest General Health Center06-10-2024 Telephone encounter Note * Telephone Encounter - Carly Butts MA - 07/19/2023 8:06 AM EDT Pt was notified via . [facility]06-10-2024 Miscellaneous Notes* Telephone Encounter - Carly Nichole MA - 07/19/2023 8:06 AM EDT Pt was notified via . * Telephone Encounter - Chalo Menjivar MD - 07/17/2023 1:32 PM EDT Please Call patient if MyChart note not read to review results/released to My Chart if tests completed at [facility]: Normal vitamin D will monitor. Take over [...] esr 5, crp 0.4; documented in this encounterSouthwest General Health Center06-08-2024 Telephone encounter Note * Telephone Encounter - Chalo Menjivar MD - 07/17/2023 1:32 PM EDT Please Call patient if MyChart note not read to review results/released to My Chart if tests completed at [facility]: Normal vitamin D will monitor. Take over [...] 137;normal cbc, cmp, esr 5, crp 0.4; [facility]05-23-2024 NoteDate of Procedure 07/01/2023. Management Department Chair Information Bindery Manager: JERE. Interpretation Right Eye Abnormal foveal contour. Findings include Drusen, RPE Irregularity, Atrophy; Negative for Intraretinal fluid, Subretinal fluid. Left Eye Abnormal foveal contour. Findings include Drusen, RPE Irregularity, Atrophy; Negative for Intraretinal fluid, Subretinal fluid. Interval Change Right Eye Better. Left Eye Better.[id number] NoteDate of Procedure 07/01/2023 [place] Protocol Safety Checklist Sign In: A moment [...] foreign bodies accounted for. Specimen containers correctly labeled.[facility] 07-01-2023 NoteDate of Procedure 07/01/2023 [place] Protocol Safety Checklist Sign In: A moment [...] follow up management communicated. Specimen containers correctly labeled.[facility]05-23-2024 Instructions* Patient Instructions* Brando Shields MD [...] than dabbing lightly with a tissue An vohd-ucz-lzzmrgt pain reliever (i.e. Tylenol) can be used [...] If it is after hours please call [phone] which will give instructions on how to reach the eye doctor supervisor contact and service clerks documented in this encounterSouthwest General Health Center05-23-2024 History of Present illness Narrative* Brando [...] all ofits relevant components. documented in this encounterSouthwest General Health Center05-15-2024 Telephone encounter Note * Telephone Encounter [...] above. Please process accordingly. Chalo Menjivar MD [facility]05-15-2024 Miscellaneous Notes* Telephone Encounter - Chalo [...] 1:30 PM [facility] 11/29/2023 12:00 PM [facility] N[facility] CBC: Latest Ref Rng & Units [...] 23, 2023 8:25 AM documented in this encounterSouthwest General Health Center05-15-2024 Telephone encounter Note * Telephone Encounter [...] 1:30 PM [facility] 11/29/2023 12:00 PM [facility] N[facility] CBC: Latest Ref Rng & Units [...] Aguero MA June 23, 2023 8:25 AM [facility]04-29-2024 Telephone encounter Note* Telephone Encounter - Erick Arredondo MA - 06/07/2023 7:45 AM EDT patient has viewed the [employer] message per [employer] [facility]04-29-2024 Miscellaneous Notes* Telephone Encounter - Erick Arredondo MA - 06/07/2023 7:45 AM EDT patient has viewed the [employer] message per [employer] * Telephone Encounter - Chalo Menjivar MD [...] esr 5, crp 0.4; documented in this encounterSouthwest General Health Center04-27-2024 Telephone encounter Note * Telephone Encounter [...] 137;normal cbc, cmp, esr 5, crp 0.4; [facility]04-25-2024 NoteDate of Procedure 06/03/2023 [place] Protocol Safety Checklist Sign In: A moment [...] follow up management communicated. Specimen containers correctly labeled.[facility]04-25-2024 NoteDate of Procedure 06/03/2023 [place] Protocol Safety Checklist Sign In: A moment [...] foreign bodies accounted for. Specimen containers correctly labeled.[facility] 06-03-2023 Instructions* Patient Instructions* Brando Shields [...] than dabbing lightly with a tissue An jblm-net-rkceebr pain reliever (i.e. Tylenol) can be used [...] If it is after hours please call [phone] which will give instructions on how to reach the eye doctor supervisor contact and service clerks documented in this encounterSouthwest General Health Center04-25-2024 NoteDate of Procedure 06/03/2023. Management Department Chair Information Bindery Manager: CD. Interpretation Right Eye Abnormal foveal contour. Findings include Intraretinal fluid, Drusen, RPE Irregularity, Atrophy; Negative for Subretinal fluid. Left Eye Abnormal foveal contour. Findings include Subretinal fluid, Drusen, RPE Irregularity, Atrophy; Negative for Intraretinal fluid. Interval Change Right Eye Better. Left Eye Worse.[id number] History of Present illness Narrative* Brando Shields [...] all ofits relevant components. documented in this encounterSouthwest General Health Center03-21-2024 History of Present illness Narrative* Nic [...] components. Nic Anderson MD documented in this encounterSouthwest General Health Center11-26-2023 Miscellaneous Notes* Telephone Encounter - Paulo [...] to the ED. Provided eye clinic number [phone] or [phone]. Reminded pt they may call back at any time Patient verbalized understanding. Paulo Jacob MD documented in this encounterSouthwest General Health Center10-31-2023 History of Present illness Narrative* Afshin [...] weight loss were advocated. documented in this [facility] Work Phone: [phone] 808-699710-31-2023 Instructions* Patient Instructions* Karime Monet CMA - [...] Fall Prevention Education Given documented in [facility] Work Phone: [phone] 936-233908-07-2023 Miscellaneous Notes* Telephone Encounter - Shanell Salinas [...] to My Chart if tests completed at [facility]: Bone mineral density shows osteopenia/stable. Happy to further review and discuss at follow up visit. Continue rest of treatment plan per instructions at last office visit. [facility] you[facility]openia/stable L1-4 1.298g/cm2, tscore 2.3, zscore 5; Left fem neck 0.795g/cm2, tscore-0.5, zscore 1.8; Left total hip 0.909g/cm2, tscore-0.3, zscore1.8; Right fem nec 0.796g/cm2, tscore-0.5, zscore1.8; Right total hip 0.920g/cm2, tscore-0., zscore1.9; Left 1/3 forearm 0.606g/cm2, tscore-1.3, zscore1.9; 08/03/22 normal cbc, cmp, esr 8(8), crp 0.3 (0.9), vitamin D 41.2, vitamin b12- 1551, uric acid 3.1; --- [facility] 08/26/20 bmd osteopenia/improved spine/decreased forearm L1-4 1.348g/cm2, tscore 2.7, zscore 5.3;improved by 8.4% prior L fem neck 0.789g/cm2, tscore-0.7, zscore1.5;L total hip 0.948g/cm2, tscore0,zscore2.0;R fem neck 0.823g/cm2, tscore-0.2, zscore2.0;R total hip 0.952g/cm2, tscore0.1, zscore2.1; L 1/3 forearm 0.603g/cm2, tscore-1.4, zscore1.6;decreased -2.2% to prior imaging * Telephone Encounter - Felicia Perry LPN - 09/09/2022 3:27 PM EDT Received BMD reports from [facility]. Placed on your desk for review. documented in this encounterSouthwest General Health Center07-24-2023 Miscellaneous Notes* Telephone Encounter - Augie Jacobson - 08/31/2022 1:32 PM EDT Patient has been notified. * Telephone Encounter - Nic Anderson MD - 08/31/2022 10:15 AM EDT rx sent * Telephone Encounter - Augie Jacobson - 08/26/2022 10:29 AM EDT LV: 04/14/22 FV: 10/22/22 If you want patient to continue with steroid drop she will need a refill sent [facility] [place]. Please advise. Nic Anderson MD filed at [...] follow-up 6 months mrx iop ou confocal extractive metallurgist ou poss keratectomy OS in future once [...] components. Nic Anderson MD documented in this encounterSouthwest General Health Center06-28-2023 Miscellaneous Notes* Telephone Encounter - Angelic Burkett - 08/05/2022 12:46 PM EDT Called and spoke to patient. She is aware of message below from Dr. Menjivar. Patient verbalized understanding. * Telephone Encounter - Chalo Menjivar MD - 08/05/2022 11:51 AM EDT Please Call patient if MyChart note not read to review results/released to My Chart if tests completed at [facility]: Improved/ stable labs and no inflammation. Continue same vitamin D intake with food. Happy to further review and discuss at follow up visit. Continue rest of treatment plan per instructions at last office visit. Thank you. 08/03/22 normal cbc, cmp, esr 8(8), crp 0.3 (0.9), vitamin D 41.2, vitamin b12- 1551, uric acid 3.1; documented in [facility] Evaluation [facility]* Encounter Date Diagnosis Assessment Notes Treatment Notes Treatment Clinical Notes May, Irritable bowel syndrome with both constipation and diarrhea (ICD-10 - K58.2) Continue dicyclomine 10 mg three times a day as needed Continue imodium as needed Continue probiotic as needed Rto 1 yr May, GERD (gastroesophageal reflux disease) (ICD-10 - K21.9) Continue Omeprazole 40 mg daily [employer] Other 03-07-2023 History of Present illness Narrative* [...] follow-up 6 months mrx iop ou confocal extractive metallurgist ou poss keratectomy OS in future once [...] components. Nic Anderson MD documented in this encounter[facility] Evaluation [facility]* Encounter Date Diagnosis Assessment Notes Treatment Notes Treatment Clinical Notes 24 [place]fr[place], 2023 GERD (gastroesophageal reflux disease) (ICD-10 - K21.9) [employer] Other 01-24-2023 History of Present illness Narrative* [...] components. Nic Anderson MD documented in this encounter[facility]12-20-2022 Instructions* Patient Instructions* Nic Anderson MD - 01/27/2022 3:38 PM EST INSTRUCTIONS FOR SCHEDULING SURGERY: CONTACT DR. ANDERSON'S BATCH UNIT TREATER: MICKIE BALDERAS AT [phone] (9AM-5PM, WEDNESDAY-WEDNESDAY) - IF YOU RECEIVE VOICEMAIL, PLEASE LEAVE A MESSAGE AND WE WILL RETURN YOUR CALL - MY ESL TUTOR WILL INFORM YOU IF ANY ADDITIONAL PREOPERATIVE [...] OR QUESTIONS, CALL DR. ANDERSON'S OFFICE AT [phone] (PRESS 0 TO BYPASS THE AUTOMATED GREETING AND BE TRANSFERRED TO AN PROJECT MANAGEMENT MANAGER) documented in this encounterSouth[facility]12-20-2022 History of Present illness Narrative* Nic [...] components. Nic Anderson MD documented in this encounterSouth[facility]10-19-2022 Evaluation note* Encounter Date Diagnosis Assessment Notes Treatment Notes Treatment Clinical Notes Nov, Irritable bowel syndrome with both constipation and diarrhea (ICD-10 - K58.2) HAVE IMPROVED WITH TAKING THE MEDICATION EVERYDAY ENCOURAGED IMODIUM NEEDED. Nov, GERD (gastroesophageal reflux disease) (ICD-10 - K21.9) PATIENT WILL GET BREAKTHROUGH ABOUT ONCE A WEEK. PATIENT TO CONTINUE ON THE MEDICATION AND USE TUMS NEEDED. [employer] Other 10-11-2022 Hospital Discharge instructions Patient Education [...] include: ?Spinach. ?Rhubarb. ?Beets. ?Potato chips and sami fries. ?Nuts. If you regularly take a diuretic medicine, make sure to eat at least 1 2 fruits or vegetables high in potassium each day. These include: ?Avocado. ?Banana. ?[place], prune, carrot, or tomato juice. ?Baked potato. [...] Casseroles. Pizza. Lasagna. Frozen meals. Potato chips. Latvian fries. Summary You can reduce your risk [...] 05/22/2011 Document Revised: 05/17/2019 Document Reviewed: 01/05/2017 [employer] Patient Education 2020 [employer] Follow Up Care 11/11/2021 13:26:18 With:EVENS AGUAYO, Noe Bailey, URL Address: [address] [address]- When:1 year Comments:W/ TRACE [facility] [id number] History of Present illness Narrative* Nic Anderson [...] components. Nic Anderson MD documented in this encounterSouth[facility]08-22-2022 Miscellaneous Notes* Telephone Encounter - Augie [...] components. Nic Anderson MD documented in this encounterSouth[facility]08-22-2022 Evaluation note* Encounter Date Diagnosis Assessment Notes Treatment Notes Treatment Clinical Notes Sep, Alternating constipation and diarrhea (ICD-10 - R19.8) [employer] Other 07-06-2022 Miscellaneous Notes* Telephone Encounter - Robert Crocker MD - 08/13/2021 4:08 PM EDT rx sent to [facility] Robert Crocker II, MD documented in this encounterSouthwest [facility] Center07-06-2022 History of Present illness Narrative* Robert Crocker MD - 08/13/2021 12:00 AM EDT [facility] [address] [place], [place] [address] CLINIC NOTE Department of Orthopaedics - Chantal Crocker II, M.D. NAME: FANTASMA LEWIS CLINIC NO.: [id number] DATE OF SERVICE: 08/13/2021 CHIEF COMPLAINT: Recheck [...] II, M.D. Date Dictated: 08/14/2021 Date Typed: [facility] 08/14/2021 JOB# [id number] documented in this encounterSouthwest [facility] Center06-22-2022 History of Present illness Narrative* Robert Sullivan DPM - 07/30/2021 9:12 AM EDT Images from the original note were not included. SERVICE DATE: July 30, 2021 PCP: DO Kiki Gannon Patient ID: Carolina is a 81 year old female. Patient presents today stating that her roll capper had examined her and recommended that she see a maintenance leader with regard to fungus of her right [...] Relaxation;Reposition HPI recommended for podiatry evaluation from roll capper with regard to discolored, thickened toenail Review [...] AM Robert Sullivan DPM documented in this encounterSouthwest [facility] Center06-14-2022 History of Present illness Narrative* Nic [...] components. Nic Anderson MD documented in this encounterSouthwest [facility] Center05-25-2022 Miscellaneous Notes* Telephone Encounter - Maribell Butler RN - 07/02/2021 4:23 PM EDT Patient calling with physician referral: Patient referred to Podiatry Department. Patient was seen by her It Security Administrator today and was advised to be seen [...] have any questions, you can call Nurse top ironer back. documented in this encounterSouthwest [facility] Center04-26-2022 History of Present illness Narrative* Nic [...] components. Nic Anderson MD documented in this encounterSouth[facility] Center04-25-2022 Miscellaneous Notes* Telephone Encounter - Magui [...] patient. Latesha Aguero MA documented in this encounterSouthwest [facility] Center03-29-2022 History of Present illness Narrative* Nic [...] components. Nic Anderson MD documented in this encounterSouthwest [facility] Center03-22-2022 Miscellaneous Notes* Telephone Encounter - Augie Jacobson - 04/29/2021 1:36 PM EDT Patient called and hadn't received her Ciprofloxacin. Spoke with pharmacy and called it in patient will pick it up today and get her 4 drops in this evening. documented in this encounterSouthwest [facility] Center10-28-2021 Evaluation note* Encounter Date Diagnosis Assessment Notes Treatment Notes Treatment Clinical Notes Nov, Gastritis (ICD-10 - K29.70) CONTINUE OMEPRAZOLE 40 MG DAILY FOR NOW RTO 6 MONTHS Nov, Diverticulosis (ICD-10 - K57.90) [employer] Other 02-07-2017 History of Past illness Narrative* Problem Noted Date Resolved Date Carrier or suspected carrier of methicillin resistant Staphylococcus aureus 03/17/2016 06/02/2016 LETICIA positive 11/25/2011 06/02/2016 documented as of this encounter (statuses as of 05/06/2021) [facility] of Past illness Narrative* Problem Noted Date Resolved Date Carrier or suspected carrier of methicillin resistant Staphylococcus aureus 03/17/2016 06/02/2016 LETICIA positive 11/25/2011 06/02/2016 documented as of this encounter (statuses as of 05/19/2021) [facility] of Past illness Narrative* Problem Noted Date Resolved Date Carrier or suspected carrier of methicillin resistant Staphylococcus aureus 03/17/2016 06/02/2016 LETICIA positive 11/25/2011 06/02/2016 documented as of this encounter (statuses as of 06/02/2021) [facility] of [facility] illness Narrative* Problem Noted Date Resolved Date Carrier or suspected carrier of methicillin resistant Staphylococcus aureus 03/17/2016 06/02/2016 LETICIA positive 11/25/2011 06/02/2016 documented as of this encounter (statuses as of 06/04/2021) [facility] of [facility] Narrative* Problem Noted Date Resolved Date Carrier or suspected carrier of methicillin resistant Staphylococcus aureus 03/17/2016 06/02/2016 LETICIA positive 11/25/2011 06/02/2016 documented as of this encounter (statuses as of 07/02/2021) [facility] of [facility] Narrative* Problem Noted Date Resolved Date Carrier or suspected carrier of methicillin resistant Staphylococcus aureus 03/17/2016 06/02/2016 LETICIA positive 11/25/2011 06/02/2016 documented as of this encounter (statuses as of 07/22/2021) [facility] of [facility] Narrative* Problem Noted Date Resolved Date Carrier or suspected carrier of methicillin resistant Staphylococcus aureus 03/17/2016 06/02/2016 LETICIA positive 11/25/2011 06/02/2016 documented as of this encounter (statuses as of 07/30/2021) [facility] of [facility] Narrative* Problem Noted Date Resolved Date Carrier or suspected carrier of methicillin resistant Staphylococcus aureus 03/17/2016 06/02/2016 LETICIA positive 11/25/2011 06/02/2016 documented as of this encounter (statuses as of 08/13/2021) [facility] of [facility] Narrative* Problem Noted Date Resolved Date Carrier or suspected carrier of methicillin resistant Staphylococcus aureus 03/17/2016 06/02/2016 LETICIA positive 11/25/2011 06/02/2016 documented as of this encounter (statuses as of 08/20/2021) [facility] Narrative* Problem Noted Date Resolved Date Carrier or suspected carrier of methicillin resistant Staphylococcus aureus 03/17/2016 06/02/2016 LETICIA positive 11/25/2011 06/02/2016 documented as of this encounter (statuses as of 09/29/2021) [facility] Narrative* Problem Noted Date Resolved Date Carrier or suspected carrier of methicillin resistant Staphylococcus aureus 03/17/2016 06/02/2016 LETICIA positive 11/25/2011 06/02/2016 documented as of this encounter (statuses as of 10/02/2021) [facility] Narrative* Problem Noted Date Resolved Date Carrier or suspected carrier of methicillin resistant Staphylococcus aureus 03/17/2016 06/02/2016 LETICIA positive 11/25/2011 06/02/2016 documented as of this encounter (statuses as of 01/27/2022) [facility] Narrative* Problem Noted Date Resolved Date Carrier or suspected carrier of methicillin resistant Staphylococcus aureus 03/17/2016 06/02/2016 LETICIA positive 11/25/2011 06/02/2016 documented as of this encounter (statuses as of 03/03/2022) [facility] Narrative* Problem Noted Date Resolved Date Carrier or suspected carrier of methicillin resistant Staphylococcus aureus 03/17/2016 06/02/2016 LETICIA positive 11/25/2011 06/02/2016 documented as of this encounter (statuses as of 04/14/2022) [facility] Narrative* Problem Noted Date Resolved Date Carrier or suspected carrier of methicillin resistant Staphylococcus aureus 03/17/2016 06/02/2016 LETICIA positive 11/25/2011 06/02/2016 documented as of this encounter (statuses as of 08/05/2022) [facility] Narrative* Problem Noted Date Diagnosed Date Resolved Date Carrier or suspected carrier of methicillin resistant Staphylococcus aureus 03/17/2016 06/03/19 17 LETICIA positive 11/25/2011 06/02/2016 documented as of this encounter (statuses as of 08/31/2022) [facility] Narrative* Problem Noted Date Diagnosed Date Resolved Date Carrier or suspected carrier of methicillin resistant Staphylococcus aureus 03/17/2016 06/03/19 17 LETICIA positive 11/25/2011 06/02/2016 documented as of this encounter (statuses as of 09/14/2022) [facility] Narrative* Problem Noted Date Diagnosed Date Resolved Date Carrier or suspected carrier of methicillin resistant Staphylococcus aureus 03/17/2016 06/03/19 17 LETICIA positive 11/25/2011 06/02/2016 documented as of this encounter (statuses as of 01/03/2023) [facility] Narrative* Problem Noted Date Diagnosed Date Resolved Date Carrier or suspected carrier of methicillin resistant Staphylococcus aureus 03/17/2016 06/03/19 17 LETICIA positive 11/25/2011 06/02/2016 documented as of this encounter (statuses as of 04/29/2023) [facility] Narrative* Problem Noted Date Diagnosed Date Resolved Date Carrier or suspected carrier of methicillin resistant Staphylococcus aureus 03/17/2016 06/03/19 17 LETICIA positive 11/25/2011 06/02/2016 documented as of this encounter (statuses as of 04/30/2023) [facility] Narrative* Problem Noted Date Diagnosed Date Resolved Date Carrier or suspected carrier of methicillin resistant Staphylococcus aureus 03/17/2016 06/03/19 17 LETICIA positive 11/25/2011 06/02/2016 documented as of this encounter (statuses as of 05/10/2023) [facility] Future Appointments Appointment Date:11/20/2022 11:00:00 AM Scheduled Provider:Noe LOZA MD Location:[facility] Appointment Type:URO Office Visit [facility] Evaluation note* Diagnosis Status post corneal transplant- Primary Cornea replaced by transplant History of Descemet membrane endothelial keratoplasty (DMEK) documented [facility] this encounter [facility]* Diagnosis Secondary osteoarthritis of multiple sites Osteoarthrosis involving, or with mention of more than one site, but not specified as generalized, multiple sites Postlaminectomy syndrome, lumbar region documented in this encounter [facility]* Diagnosis History of Descemet membrane endothelial keratoplasty (DMEK)- Primary Pseudophakia Lens replaced by other means Retinal edema documented in this encounter [facility]* Diagnosis History of Descemet membrane endothelial keratoplasty (DMEK)- Primary Pseudophakia Lens replaced by other means documented in this encounter [facility]* Diagnosis Onychomycosis of right great toe- Primary [facility] Diagnosis Status post bilateral knee replacements- Primary Knee joint replacement by other means [facility]* Diagnosis Status post bilateral knee replacements- Primary Knee joint replacement by other means [facility]* Diagnosis Anterior capsular opacification- Primary Pseudophakia Lens replaced by other means History of Descemet membrane endothelial keratoplasty (DMEK) Intermediate stage nonexudative age-related macular degeneration of both eyes Retained lens material following cataract surgery of left eye Cataract fragments in eye following surgery [facility]* Diagnosis 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 Pseudophakia Lens replaced by other means PCO (posterior capsular opacification), bilateral After-cataract, unspecified History of Descemet membrane endothelial keratoplasty (DMEK) [facility]* Diagnosis 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 [facility]* Diagnosis 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 History of Descemet membrane endothelial keratoplasty (DMEK) Pseudophakia Lens replaced by other means documented in this encounter [facility] noteNo [employer] Other Evaluation note* Diagnosis Vertigo- Primary Dizziness and giddiness SVT (supraventricular tachycardia) Other specified cardiac dysrhythmias Overweight (BMI 25.0-29.9) Overweight Essential hypertension Unspecified essential hypertension documented in this encounter [facility] Work Phone: Evaluation note* Diagnosis History of Descemet membrane endothelial keratoplasty (DMEK)- Primary 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 Retinal edema 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, left eye, intermediate dry stage documented in this encounter [facility] note* Diagnosis 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r degeneration of right eye with active choroidal neovascularization (HCC)- Primary Nonexudative age-related macular degeneration, left eye, intermediate dry stage Pseudophakia Lens replaced by other means 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 [facility] encounter [facility]* Diagnosis 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)- Primary Pseudophakia Lens replaced by other means 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 Dry eye syndrome of both eyes [facility]* Diagnosis Secondary osteoarthritis of multiple sites Osteoarthrosis involving, or with mention of more than one site, but not specified as generalized, multiple sites Postlaminectomy syndrome, lumbar region [facility]* Diagnosis 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) documented in this encounter [facility]* Diagnosis Senile osteoporosis- Primary Personal history of other drug therapy [facility]* Diagnosis Onset Date Resolution Status 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 Encounter for monitoring aromatase inhibitor therapy chronic Screening for osteoporosis c hronic Microcalcification of right breast on mammogram [facility] Work Phone: Evaluation note* Diagnosis Multiple joint pain Pain in joint, multiple sites Secondary osteoarthritis of multiple sites Osteoarthrosis involving, or with mention of more than one site, but not specified as generalized, multiple sites documented [facility] this encounter [facility]* Diagnosis Status post bilateral knee replacements Knee joint replacement by other means documented in this encounter [facility]* Diagnosis 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)- Primary Retinal edema documented [facility] this encounter [facility]* Diagnosis Status post bilateral knee replacements Knee joint replacement by other means documented [facility] this encounter [facility]* Diagnosis Pseudogout involving multiple joints- Primary [...] other drug therapy documented [facility] this encounter [facility]* Diagnosis Sensorineural hearing loss, bilateral- Primary documented in this encounter [facility] HealthcareEvaluation note* Diagnosis Onset Date Resolution Status Alternating constipation and diarrhea acute Chronic GERD acute Nausea acute [facility] Work Phone: Evaluation note* Diagnosis Bronchitis- Primary Bronchitis, not specified as acute or chronic Acute cough documented in this encounter [facility] HealthcareEvaluation note* Diagnosis 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)- Primary Pseudophakia Lens replaced by other means Dry eye syndrome of both eyes History of Descemet membrane endothelial keratoplasty (DMEK) Posterior vitreous detachment of both eyes Vitreous degeneration PCO (posterior capsular opacification), bilateral After-cataract, unspecified documented [facility]* Diagnosis Routine general medical examination at health care facility- Primary Routine general medical examination at a health care facility documented in this encounter [facility] HealthcareEvaluation note* Diagnosis Polyuria- Primary Hypertension, unspecified type (CMS/HCC) Hypothyroidism, unspecified type (CMS/HCC) Primary hypertension (CMS/HCC) Unspecified essential hypertension Supraventricular tachycardia, unspecified (CMS/HCC) Atherosclerosis of aorta (CMS/HCC) Atherosclerosis of aorta documented in this encounter [facility] HealthcareEvaluation note* Diagnosis Sensorineural hearing loss, bilateral- Primary documented in this encounter [facility] HealthcareEvaluation note* Diagnosis Acute cystitis without hematuria- Primary Urinary frequency documented in this encounter [facility]Evaluation note* Diagnosis Generalized abdominal pain- Primary Abdominal pain, generalized Nausea and vomiting, unspecified vomiting type Diarrhea, unspecified type Flank pain Abdominal pain, unspecified site documented in this encounter [facility] HealthcareEvaluation note* Diagnosis Acute cystitis without hematuria- Primary documented in this encounter [facility] HealthcareEvaluation note* Diagnosis Greater trochanteric bursitis of right hip- Primary Pain of right upper extremity documented in this encounter [facility] HealthcareEvaluation note* Diagnosis Acute cystitis without hematuria- Primary Dysuria [facility] Diagnosis Postmenopausal osteoporosis of multiple sites- Primary Vitamin D deficiency Unspecified vitamin D deficiency Hypocalcemia documented in this encounter [facility] note* Diagnosis Senile osteoporosis- Primary Personal history of other drug therapy documented in this encounter [facility] note* Diagnosis Multiple joint pain Pain in joint, multiple sites Secondary osteoarthritis of multiple sites Osteoarthrosis involving, or with mention of more than one site, but not specified as generalized, multiple sites Postlaminectomy syndrome, lumbar region [facility]* Diagnosis Routine general medical examination at health care facility- Primary Routine general medical examination at a health care facility Mild intermittent asthma without complication (CMS/HCC) Hypertension, unspecified type (CMS/HCC) Hypothyroidism, unspecified type (CMS/HCC) Hyperlipidemia, unspecified hyperlipidemia type (CMS/HCC) [facility] Diagnosis Impingement of right shoulder- Primary Greater trochanteric bursitis of right hip [facility] Diagnosis Impingement of right shoulder- Primary Right hip pain Pain in joint, pelvic region and thigh Greater trochanteric bursitis of right hip Impingement of right shoulder Right hip pain Pain in joint, pelvic region and thigh [facility] Diagnosis 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)- Primary documented in this encounter [facility] note* Diagnosis Pseudophakia- Primary Lens replaced by other means PCO (posterior capsular opacification), bilateral After-cataract, unspecified History of Descemet membrane endothelial keratoplasty (DMEK) 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) documented in this encounter [facility] note* Diagnosis Onset Date Resolution Status Admit Date Alternating constipation and diarrhea acute May 11, 2024 10:55am Chronic GERD acute May 11 025 10:55am Dyspepsia acute May 11 10:55am Nausea acute May 11 10:55am [facility] Work Phone: Evaluation note* Diagnosis Personal history of malignant neoplasm of breast- Primary [facility] Diagnosis Postmenopausal osteoporosis of multiple sites- Primary Personal history of other medical treatment PCO (posterior capsular opacification), right- Primary After-cataract, unspecified [facility] Diagnosis Senile osteoporosis- Primary Personal history of other drug therapy PCO (posterior capsular opacification), right- Primary After-cataract, unspecified [facility] Diagnosis PCO (posterior capsular opacification), right- Primary After-cataract, unspecified Pseudophakia Lens replaced by other means 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) History of Descemet membrane endothelial keratoplasty (DMEK) [facility] Diagnosis Foreign body of right ear, initial encounter documented in this encounter [facility]* Diagnosis 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)- Primary Dry eye syndrome of both eyes Pseudophakia of both eyes Lens replaced by other means History of YAG laser capsulotomy of lens, right Posterior vitreous detachment of both eyes Vitreous degeneration documented in this encounter [facility] general Narrative - Reported* Type Description Date Medical History kidney stones Medical History osteoarthritis Medical History migraine headache Medical History hypertension Medical History breast cancer Surgical History laminectomy Surgical History back surgery Surgical History knee surgery right Surgical History kidney stone Surgical History appendectomy Hospitalization History see surgical hx [employer] Other [facility] general Narrative - Reported* Type Description Date Medical History kidney stones Medical History osteoarthritis Medical History migraine headache Medical History hypertension Medical History breast cancer Surgical History laminectomy Surgical History back surgery Surgical History knee surgery right Surgical History kidney stone Surgical History appendectomy 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 Hospitalization History see surgical hx [employer] Other History of Present illness Narrative* CRISSY [...] DR capsule ergocalciferol (Vitamin D2) 1.25 MG (79955 UT) capsule TAKE 1 CAPSULE TWICE A [...] Yes Vision Screening: Yes, 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 [...] on March 15, 2024 [facility] Narrative No data available for this section [facility] Hospital Discharge instructions No data available for this section [facility] Progress note No data available for this section [facility] Reason for referral (narrative)* Diagnostic Procedure Only (Routine) - Closed Specialty Diagnoses / Procedures Referred By Moncho santos Referred To Contact XR IMAGING Diagnoses Status post bilateral knee replacements Procedures XR KNEE POST OP 3V AP/LAT/MERCHANT BILATERAL RADIOLOGIC EXAMINATION KNEE 3 VIEWS Robert Crocker MD [address] [place] [address] Xr Imaging Referral ID Status Reason Start Date Expiration Date V isits Requested Visits Authorized [id number] Closed Auto-Generate d Referral 08/12/2021 09/11/2022 1 1 [facility] for referral (narrative)* Consultation (Routine) - Authorized Specialty Diagnoses / Procedures Referred By Contac t Referred To Contact Cardiology Diagnoses SVT (supraventricular tachycardia) Procedures Follow Up In Cardiology Afshin Rocha MD [address] [place] [address] 2, [address] [address] Afshin Rocha MD [address] [place] [address] 2, [address] [address] Referral ID Status Reason Start Date Expiration Date V isits Requested Visits Authorized [id number] Authorized 12/08/2022 12/08/2023 1 1 * Cardiovascular (Routine) - Pending Review Specialty Diagnoses / Procedures Referred By Contac t Referred To Contact Diagnoses SVT (supraventricular tachycardia) Procedures ECG 12 Lead Afshin Rocha MD [address] [place] [address] 2, [address] [address] Referral ID Status Reason Start Date Expiration Date V isits Requested Visits Authorized [id number] Pending Review 12/08/2022 12/08/2023 1 1 [facility] Work Phone: [facility] for referral (narrative)* Diagnostic Procedure Only (Routine) - Closed Specialty Diagnoses / Procedures Referred By Contac t Referred To Contact XR IMAGING Diagnoses Status post bilateral knee replacements Procedures XR KNEE POST OP 3V AP/LAT/MERCHANT BILATERAL RADIOLOGIC EXAMINATION KNEE 3 VIEWS Robert Crocker MD [address] [place] [address] [place] [address] Referral ID Status Reason Start Date Expiration Date V isits Requested Visits Authorized [id number] Closed Auto-Generate d Referral 08/12/2021 09/11/2022 1 1 [facility] for referral (narrative)* Diagnostic Procedure Only (Routine) - New Request Specialty Diagnoses / Procedures Referred By Contac t Referred To Contact XR IMAGING Diagnoses Postmenopausal osteoporosis of multiple sites Procedures DXA-AXIAL SKELETON DXA BONE DENSITY STUDY 1/> SITES AXIAL Chalo Elmore MD [address] [facility] [place] [address] [place] [address] Referral ID Status Reason Start Date Expiration Date Visits Requested Visits Authorized [id number] New Request Auto-Generat ed Referral 4 12/27/2024 1 1 * Diagnostic Procedure Only (Routine) - New Request Specialty Diagnoses / Procedures Referred By Contac t Referred To Contact XR IMAGING Diagnoses Postmenopausal osteoporosis of multiple sites Procedures DXA-FOREARM SKELETON DXA BONE DENSITY STUDY 1/>SITES APPENDICLR Chalo Elmore MD [address] [facility] [place] [address] [place] [address] Referral ID Status Reason Start Date Expiration Date Visits Requested Visits Authorized [id number] New Request Auto-Generat ed Referral 4 12/27/2024 1 1 [facility] for referral (narrative)No reason for referral [facility] Work [facility]: Reason for visit Narrative* Diagnostic Procedure Only (Routine) - Closed Specialty Diagnoses / Procedures Referred By Contac t Referred To Contact XR IMAGING Diagnoses Status post bilateral knee replacements Procedures XR KNEE POST OP 3V AP/LAT/MERCHANT BILATERAL RADIOLOGIC EXAMINATION KNEE 3 VIEWS Robert Crocker MD [address] [place] [address] [place] [address] Referral ID Status Reason Start Date Expiration Date V isits Requested Visits Authorized [id number] Closed Auto-Generate d Referral 08/12/2021 09/11/2022 1 1 [facility] Advance Directives No Advanced Directives Records Found Advance Directive Response Recorded Date/ Time Advance Directives No October 2:06pm Documents on File Type Date Recorded 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 Advance Directive(s) Advance Directive(s) 04/24/2021 10:29 AM Advance Directive(s) 08/27/2020 10:42 AM Advance Directive(s) 06/25/2016 7:07 AM Documents on File Type Date Recorded 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 Advance Directive(s) Advance Directive(s) 04/24/2021 [...] alcohol or drug abuse patient.[facility] the event this information is protected by the Federal Confidentiality of Alcohol and Drug Abuse Patient Records regulations: The Federal rules restrict any use of the information to criminally investigate or prosecute any alcohol or drug abuse patient.[facility] CenterIn the event this information is protected by the Federal Confidentiality of Alcohol and Drug Abuse Patient Records regulations: The Federal rules restrict any use of the information to criminally investigate or prosecute any alcohol or drug abuse patient.[facility] CenterIn the event this information is protected by the Federal Confidentiality of Alcohol and Drug Abuse Patient Records regulations: The Federal rules restrict any use of the information to criminally investigate or prosecute any alcohol or drug abuse patient.[facility] CenterIn the event this information is protected by the Federal Confidentiality of Alcohol and Drug Abuse Patient Records regulations: The Federal rules restrict any use of the information to criminally investigate or prosecute any alcohol or drug abuse patient.[facility] CenterIn the event this information is protected by the Federal Confidentiality of Alcohol and Drug Abuse Patient Records regulations: The Federal rules restrict any use of the information to criminally investigate or prosecute any alcohol or drug abuse patient.[facility] CenterIn the event this information is protected by the Federal Confidentiality of Alcohol and Drug Abuse Patient Records regulations: The Federal rules restrict any use of the information to criminally investigate or prosecute any alcohol or drug abuse patient.[facility] CenterIn the event this information is protected by the Federal Confidentiality of Alcohol and Drug Abuse Patient Records regulations: The Federal rules restrict any use of the information to criminally investigate or prosecute any alcohol or drug abuse patient.[facility] CenterIn the event this information is protected by the Federal Confidentiality of Alcohol and Drug Abuse Patient Records regulations: The Federal rules restrict any use of the information to criminally investigate or prosecute any alcohol or drug abuse patient.[facility] CenterIn the event this information is protected by the Federal Confidentiality of Alcohol and Drug Abuse Patient Records regulations: The Federal rules restrict any use of the information to criminally investigate or prosecute any alcohol or drug abuse patient.[facility] CenterIn the event this information is protected by the Federal Confidentiality of Alcohol and Drug Abuse Patient Records regulations: The Federal rules restrict any use of the information to criminally investigate or prosecute any alcohol or drug abuse patient.[facility] CenterIn the event this information is protected by the Federal Confidentiality of Alcohol and Drug Abuse Patient Records regulations: The Federal rules restrict any use of the information to criminally investigate or prosecute any alcohol or drug abuse patient.[facility] CenterIn the event this information is protected by the Federal Confidentiality of Alcohol and Drug Abuse Patient Records regulations: The Federal rules restrict any use of the information to criminally investigate or prosecute any alcohol or drug abuse patient.[facility] CenterIn the event this information is protected by the Federal Confidentiality of Alcohol and Drug Abuse Patient Records regulations: The Federal rules restrict any use of the information to criminally investigate or prosecute any alcohol or drug abuse patient.[facility] CenterIn the event this information is protected by the Federal Confidentiality of Alcohol and Drug Abuse Patient Records regulations: The Federal rules restrict any use of the information to criminally investigate or prosecute any alcohol or drug abuse patient.[facility] CenterIn the event this information is protected by the Federal Confidentiality of Alcohol and Drug Abuse Patient Records regulations: The Federal rules restrict any use of the information to criminally investigate or prosecute any alcohol or drug abuse patient.[facility] the event this information is protected by the Federal Confidentiality of Alcohol and Drug Abuse Patient Records regulations: The Federal rules restrict any use of the information to criminally investigate or prosecute any alcohol or drug abuse patient.[facility] Center[facility] the event this information is protected by the Federal Confidentiality of Alcohol and Drug Abuse Patient Records regulations: The Federal rules restrict any use of the information to criminally investigate or prosecute any alcohol or drug abuse patient.[facility] CenterIn the event this information is protected by the Federal Confidentiality of Alcohol and Drug Abuse Patient Records regulations: The Federal rules restrict any use of the information to criminally investigate or prosecute any alcohol or drug abuse patient.[facility] CenterIn the event this information is protected by the Federal Confidentiality of Alcohol and Drug Abuse Patient Records regulations: The Federal rules restrict any use of the information to criminally investigate or prosecute any alcohol or drug abuse patient.[facility] CenterIn the event this information is protected by the Federal Confidentiality of Alcohol and Drug Abuse Patient Records regulations: The Federal rules restrict any use of the information to criminally investigate or prosecute any alcohol or drug abuse patient.[facility] CenterIn the event this information is protected [...] alcohol or drug abuse patient.[facility] CenterIn the event this information is protected by the Federal Confidentiality of Alcohol and Drug Abuse Patient Records regulations: The Federal rules restrict any use of the information to criminally investigate or prosecute any alcohol or drug abuse patient.[facility] CenterIn the event this information is protected by the Federal Confidentiality of Alcohol and Drug Abuse Patient Records regulations: The Federal rules restrict any use of the information to criminally investigate or prosecute any alcohol or drug abuse patient.[facility] CenterIn the event this information is protected by the Federal Confidentiality of Alcohol and Drug Abuse Patient Records regulations: The Federal rules restrict any use of the information to criminally investigate or prosecute any alcohol or drug abuse patient.[facility] CenterIn the event this information is protected by the Federal Confidentiality of Alcohol and Drug Abuse Patient Records regulations: The Federal rules restrict any use of the information to criminally investigate or prosecute any alcohol or drug abuse patient.[facility] CenterIn the event this information is protected by the Federal Confidentiality of Alcohol and Drug Abuse Patient Records regulations: The Federal rules restrict any use of the information to criminally investigate or prosecute any alcohol or drug abuse patient.[facility] CenterIn the event this information is protected by the Federal Confidentiality of Alcohol and Drug Abuse Patient Records regulations: The Federal rules restrict any use of the information to criminally investigate or prosecute any alcohol or drug abuse patient.[facility] CenterIn the event this information is protected by the Federal Confidentiality of Alcohol and Drug Abuse Patient Records regulations: The Federal rules restrict any use of the information to criminally investigate or prosecute any alcohol or drug abuse patient.[facility] CenterIn the event this information is protected by the Federal Confidentiality of Alcohol and Drug Abuse Patient Records regulations: The Federal rules restrict any use of the information to criminally investigate or prosecute any alcohol or drug abuse patient.[facility] CenterIn the event this information is protected by the Federal Confidentiality of Alcohol and Drug Abuse Patient Records regulations: The Federal rules restrict any use of the information to criminally investigate or prosecute any alcohol or drug abuse patient.[facility] CenterIn the event this information is protected by the Federal Confidentiality of Alcohol and Drug Abuse Patient Records regulations: The Federal rules restrict any use of the information to criminally investigate or prosecute any alcohol or drug abuse patient.[facility]In the event this information is protected by the Federal Confidentiality of Alcohol and Drug Abuse Patient Records regulations: The Federal rules restrict any use of the information to criminally investigate or prosecute any alcohol or drug abuse patient.[facility] CenterIn the event this information is protected by the Federal Confidentiality of Alcohol and Drug Abuse Patient Records regulations: The Federal rules restrict any use of the information to criminally investigate or prosecute any alcohol or drug abuse patient.[facility] CenterIn the event this information is protected by the Federal Confidentiality of Alcohol and Drug Abuse Patient Records regulations: The Federal rules restrict any use of the information to criminally investigate or prosecute any alcohol or drug abuse patient.[facility] CenterIn the event this information is protected by the Federal Confidentiality of Alcohol and Drug Abuse Patient Records regulations: The Federal rules restrict any use of the information to criminally investigate or prosecute any alcohol or drug abuse patient.[facility] CenterIn the event this information is protected by the Federal Confidentiality of Alcohol and Drug Abuse Patient Records regulations: The Federal rules restrict any use of the information to criminally investigate or prosecute any alcohol or drug abuse patient.[facility] CenterIn the event this information is protected by the Federal Confidentiality of Alcohol and Drug Abuse Patient Records regulations: The Federal rules restrict any use of the information to criminally investigate or prosecute any alcohol or drug abuse patient.[facility] CenterIn the event this information is protected by the Federal Confidentiality of Alcohol and Drug Abuse Patient Records regulations: The Federal rules restrict any use of the information to criminally investigate or prosecute any alcohol or drug abuse patient.[facility] CenterIn the event this information is protected by the Federal Confidentiality of Alcohol and Drug Abuse Patient Records regulations: The Federal rules restrict any use of the information to criminally investigate or prosecute any alcohol or drug abuse patient.[facility] CenterIn the event this information is protected by the Federal Confidentiality of Alcohol and Drug Abuse Patient Records regulations: The Federal rules restrict any use of the information to criminally investigate or prosecute any alcohol or drug abuse patient.[facility] CenterIn the event this information is protected by the Federal Confidentiality of Alcohol and Drug Abuse Patient Records regulations: The Federal rules restrict any use of the information to criminally investigate or prosecute any alcohol or drug abuse patient.[facility] CenterIn the event this information is protected by the Federal Confidentiality of Alcohol and Drug Abuse Patient Records regulations: The Federal rules restrict any use of the information to criminally investigate or prosecute any alcohol or drug abuse patient.[facility] CenterIn the event this information is protected by the Federal Confidentiality of Alcohol and Drug Abuse Patient Records regulations: The Federal rules restrict any use of the information to criminally investigate or prosecute any alcohol or drug abuse patient.[facility] CenterIn the event this information is protected by the Federal Confidentiality of Alcohol and Drug Abuse Patient Records regulations: The Federal rules restrict any use of the information to criminally investigate or prosecute any alcohol or drug abuse patient.[facility] CenterIn the event this information is protected by the Federal Confidentiality of Alcohol and Drug Abuse Patient Records regulations: The Federal rules restrict any use of the information to criminally investigate or prosecute any alcohol or drug abuse patient.[facility] CenterIn the event this information is protected by the Federal Confidentiality of Alcohol and Drug Abuse Patient Records regulations: The Federal rules restrict any use of the information to criminally investigate or prosecute any alcohol or drug abuse patient.[facility] Reason for Visit (unrecogniz ed section and content) Reason Comments Macular Degeneration Follow Up both neov ascular Specialty Diagnoses / Procedures Referred By Moncho t Referred To Contact Ophthalmology / OPHTHALMOLOGY Diagnoses 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r degeneration, right eye, with active choroidal neovascularization c*4 W, nvAMD, DFE/OCT, PRN AVASTIN Procedures ME BEVACIZUMAB INJECTION AVASTIN 1.25 mg every 4 weeks Brando Shields MD [address] [place] [address] Brando Shields MD [address] [place] [address] Referral ID Status Reason Start Date Expiration Date V isits Requested Visits Authorized [id number] Authorized 06/03/2023 06/02/2024 12 12 Reason Comments [...] BMD Specialty Diagnoses / Procedures Referred By [facility] Referred To Contact Diagnoses SVT (supraventricular tachycardia) Procedures ECG 12 Lead Afshin Rocha MD [address] [facility] 2, [address] [address] Referral ID Status Reason Start Date Expiration Date V isits Requested Visits Authorized [id number] Pending Review 12/08/2022 12/08/2023 1 1 Reason Comments Allied Health Visit Prolia injection Specialty Diagnoses / Procedures [facility] Referred To Contact Rheumatology / RHEUMATOLOGY Diagnoses Age-related osteoporosis without current pathological fracture Procedures DENOSUMAB INJECTION SAHARA INJECT PROLIA Chalo Menjivar MD [address] [place] [address] Nurse Lucrecia Gayle [facility] [address] [place] [address] Referral ID Status Reason Start Date Expiration Date V isits Requested Visits Authorized [id number] Authorized 09/03/2023 07/27/2024 2 2 Reason Comments [...] Expiration Date Visits Re quested Visits Authorized [id number] Closed 09/03/2023 07/27/2024 2 2 Reason Onset Date Comments Refill Request 03/06/2024 Reason Comments Macular Degeneration Follow Up both 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 Specialty Diagnoses / Procedures Referred By Moncho santos Referred To Contact Ophthalmology / OPHTHALMOLOGY Diagnoses 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r degeneration, right eye, with active choroidal neovascularization c*4 W, nvAMD, DFE/OCT, PRN AVASTIN Procedures ME BEVACIZUMAB INJECTION AVASTIN 1.25 mg every 4 weeks Brando Shields MD [address] [place] [address] Phone: tel: fax: Brando Shields MD [address] [place] [address] Phone: tel: fax: Reason Comments Posterior Capsule [...] SUBQ/IM SAHARA INJECT PROLIA Chalo Menjivar MD [address] [place] [address] Phone: tel: fax: Nurse Lucrecia Gayle [facility] [address] [place] [address] Phone: tel: fax: Referral ID Status Reason Start Date Expiration Date V isits Requested Visits Authorized [id number] Authorized 08/29/2024 08/29/2025 2 2 Reason Comments Posterior Capsule Opacification Evaluati on Reason Comments Exudative Macular Degeneration Follow Up Specialty Diagnoses / Procedures Referred By Contact Referred To Contact Ophthalmology / OPHTHALMOLOGY Diagnoses 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r degeneration, bilateral, with active choroidal neovascularization (HCC) Return in about 13 weeks (around 07/06/2024). Procedures ME BEVACIZUMAB INJECTION Avastin 1.25 mg both eyes every 4 wks for one year Brando Shields MD [address] [place] [address] Phone: tel:[phone] fax:[phone] Brando Shields MD [address] [place] [id number] Phone: tel:[phone] fax:[phone] Referral ID Status Reason Start Date Expiration Date V isits Requested Visits Authorized [id number] Authorized 06/29/2024 06/29/2025 12 12 Care Teams [...] December 08, 2023 End: December 08, 2023 Site Safety Coordinator Relationship Specialty Start Date End Date Roney Leroy, DO [address] [place] [address] PCP - General 05/19/00 Site Safety Coordinator Relationship Specialty Start Date End Date Roney Leory, DO [address] [place] [address] PCP - General 05/19/00 Site Safety Coordinator Relationship Specialty Start Date End Date Roney Leroy, DO [address] [place] [address] PCP - General 05/19/00 Site Safety Coordinator Relationship Specialty Start Date End Date Roney Leroy, DO [address] [place] [address] PCP - General 05/19/00 Site Safety Coordinator Relationship Specialty Start Date End Date Roney Leroy, DO [address] [place] [address] PCP - General 05/19/00 Site Safety Coordinator Relationship Specialty Start Date End Date Roney Leroy, DO [address] [place] [address] PCP - General 05/19/00 Site Safety Coordinator Relationship Specialty Start Date End Date Roney Leroy, DO [address] [place] [address] PCP - General 05/19/00 Site Safety Coordinator Relationship Specialty Start Date End Date Roney Leroy, DO [address] [place] [address] PCP - General 05/19/00 Site Safety Coordinator Relationship Specialty Start Date End Date Roney Leroy, DO [address] [place] [address] PCP - General 05/19/00 Site Safety Coordinator Relationship Specialty Start Date End Date Roney Leroy, DO [address] [place] [address] PCP - General 05/19/00 Site Safety Coordinator Relationship Specialty Start Date End Date Roney Leroy, DO [address] [place] [address] PCP - General 05/19/00 Site Safety Coordinator Relationship Specialty Start Date End Date Roney Leroy, DO [address] [place] [address] PCP - General 05/19/00 Site Safety Coordinator Relationship Specialty Start Date End Date Roney Leroy DO [address] [place] [address] PCP - General 05/19/00 Site Safety Coordinator Relationship Specialty Start Date End Date Roney Leroy DO [address] [place] [address] PCP - General 05/19/00 Site Safety Coordinator Relationship Specialty Start Date End Date Roney Leroy, [address] [place] [address] PCP - General Family Medicine 12/08/22 Site Safety Coordinator Relationship Specialty Start Date End Date Roney Leroy DO [address] [place] [address] PCP - General 05/19/00 Site Safety Coordinator Relationship Specialty Start Date End Date Roney Leroy DO [address] [place] [address] PCP - General Family Medicine 08/04/22 Marifer Castellanos MD [address] [facility] [place] [address] Oncology 01/29/23 Gunner Hidalgo DO [address] [facility] [address] [place] [address] Referring Physician General Surgery 01/29/23 Chalo Menjivar MD [address] [facility] [address] Referring Physician Rheumatology 01/29/23 Site Safety Coordinator Relationship Specialty Start Date End Date Roney Leroy, [address] [place] [address] PCP - General 05/19/00 Site Safety Coordinator Relationship Specialty Start Date End Date Roney Leroy, [address] [place] [address] PCP - General 05/19/00 Site Safety Coordinator Relationship Specialty Start Date End Date Roney Leroy, [address] [place] [address] PCP - General 05/19/00 Site Safety Coordinator Relationship Specialty Start Date End Date Roney Leroy, [address] [place] [address] PCP - General 05/19/00 Site Safety Coordinator Relationship Specialty Start Date End Date Roney Leroy, [address] [place] [address] PCP - General 05/19/00 Site Safety Coordinator Relationship Specialty Start Date End Date Roney Leroy DO [address] [place] [address] PCP - General 05/19/00 Site Safety Coordinator Relationship Specialty Start Date End Date Roney Leroy DO [address] [place] [address] PCP - General 05/19/00 Site Safety Coordinator Relationship Specialty Start Date End Date Roney Leroy DO [address] [place] [address] PCP - General 05/19/00 Site Safety Coordinator Relationship Specialty Start Date End Date Roney Leroy DO [address] [place] [address] PCP - General 05/19/00 Team Status: Active [...] September 08, 2023 End: September 08, 2023 Site Safety Coordinator Relationship Specialty Start Date End Date Roney Leroy DO [address] [place] [address] PCP - General 05/19/00 Site Safety Coordinator Relationship Specialty Start Date End Date Roney Leroy DO [address] [place] [address] PCP - General 05/19/00 Site Safety Coordinator Relationship Specialty Start Date End Date Roney Leroy DO [address] [facility] [address] [place] [address] PCP - General 05/19/00 Site Safety Coordinator Relationship Specialty Start Date End Date Roney Leroy DO [address] [facility] [address] [place] [address] PCP - General 05/19/00 Site Safety Coordinator Relationship Specialty Start Date End Date Mounika Dick DO [address] [facility] [address] [place] [address] PCP - General Family Medicine 09/29/23 Marifer Castellanos MD [address] [place] [address] Oncology 01/29/23 Gunner Hidalgo DO [address] [address] Referring Physician General Surgery 01/29/23 Chalo Menjivar MD [address] [place] [address] Referring Physician Rheumatology 01/29/23 Site Safety Coordinator Relationship Specialty Start Date End Date Mounika Dick DO [address] [facility] [place] [address] PCP - General Family Medicine 09/29/23 Marifer Castellanos MD [address] [place] [address] Oncology 01/29/23 Gunner Hidalgo, DO [address] [facility] [address] [place] [address] Referring Physician General Surgery 01/29/23 Chalo Menjivar MD [address] [place] [address] Referring Physician Rheumatology 01/29/23 Site Safety Coordinator Relationship Specialty Start Date End Date Roney Leroy, DO [address] [place] [address] PCP - General 05/19/00 Site Safety Coordinator Relationship Specialty Start Date End Date Roney Leroy DO [address] [place] [address] PCP - General Family Medicine 08/04/22 Marifer Castellanos MD [address] [facility] [place] [address] Oncology 01/29/23 Gunner Hidalgo, DO [address] [facility] [address] [place] [address] Referring Physician General Surgery 01/29/23 Chalo Menjivar MD [address] [place] [address] Referring Physician Rheumatology 01/29/23 Site Safety Coordinator Relationship Specialty Start Date End Date Roney Leroy DO [address] [place] [address] PCP - General Family Medicine 08/04/22 Marifer Castellanos MD [address] [place] [address] Oncology 01/29/23 Gunner Hidalgo DO [address] [place] [address] [place] [address] Referring Physician General Surgery 01/29/23 Chalo Menjivar MD [address] [facility] [place] [address] Referring Physician Rheumatology 01/29/23 Site Safety Coordinator Relationship Specialty Start Date End Date Mounika Dick DO [address] [facility] [address] [place] [address] PCP - General Family Medicine 09/29/23 Marifer Castellanos MD [address] [place] [address] [place] [address] Oncology 01/29/23 Gunner Hidalgo DO [address] [place] [address] [place] [address] Referring Physician General Surgery 01/29/23 Chalo Menjivar MD [address] [facility] [place] [address] Referring Physician Rheumatology 01/29/23 Site Safety Coordinator Relationship Specialty Start Date End Date Mounika Dick DO [address] [facility] [address] [place] [address] PCP - General Family Medicine 09/29/23 Marifer Castellanos MD [facility] [place] [address] Oncology 01/29/23 Gunner Hidalgo DO [address] [facility] [address] [place] [address] Referring Physician General Surgery 01/29/23 Chalo Menjivar MD [address] [facility] [place] [address] Referring Physician Rheumatology 01/29/23 Site Safety Coordinator Relationship Specialty Start Date End Date Mounika Dick DO [address] [facility] [address] [place] [address] PCP - General Family Medicine 09/29/23 Marifer Castellanos MD [address] [facility] [place] [address] Oncology 01/29/23 Gunner Hidalgo, DO [address] [place] [address] Referring Physician General Surgery 01/29/23 Chalo Menjivar MD [address] [facility] [place] [address] Referring Physician Rheumatology 01/29/23 Site Safety Coordinator Relationship Specialty Start Date End Date Mounika Dick DO [address] [facility] [address] [place] [address] PCP - General Family Medicine 09/29/23 Marifer Castellanos MD [address] [facility] [place] [address] Oncology 01/29/23 Gunner Hidalgo, DO 7[address] [facility] [address] [place] [address] Referring Physician General Surgery 01/29/23 Chalo Menjivar MD [address] [place] [address] Referring Physician Rheumatology 01/29/23 Site Safety Coordinator Relationship Specialty Start Date End Date Mounika Dick DO [address] [place] [address] PCP - General Family Medicine 09/29/23 Marifer Castellanos MD [address] [place] [address] Oncology 01/29/23 Gunner Hidalgo DO 7[address] [facility] [address] [place] [address] Referring Physician General Surgery 01/29/23 Chalo Menjivar MD [address] [place] [address] Referring Physician Rheumatology 01/29/23 Site Safety Coordinator Relationship Specialty Start Date End Date Mounika Dick DO [address] [facility] [address] [place] [address] PCP - General Family Medicine 09/29/23 Marifer Castellanos MD [address] [place] [address] Oncology 01/29/23 Gunner Hidalgo DO 703 [facility] [address] [place] [address] Referring Physician General Surgery 01/29/23 Chalo Menjivar MD [address] [place] [address] Referring Physician Rheumatology 01/29/23 Site Safety Coordinator Relationship Specialty Start Date End Date Mounika Dick, DO [address] [facility] [address] [place] [address] PCP - General Family Medicine 09/29/23 Marifer Castellanos MD 701 [place] [address] Oncology 01/29/23 Gunner Hidalgo DO 703 [facility] [address] [place] [address] Referring Physician General Surgery 01/29/23 Chalo Menjivar MD [address] [place] [address] Referring Physician Rheumatology 01/29/23 Site Safety Coordinator Relationship Specialty Start Date End Date Mounika Dick DO [address] [facility] [address] [place] [address] PCP - General Family Medicine 09/29/23 Marifer Castellanos MD 701 [place] [address] Oncology 01/29/23 Gunner Hidalgo DO 703 [facility] [address] [place] [address] Referring Physician General Surgery 01/29/23 Chalo Menjivar MD [address] [facility] [place] [address] Referring Physician Rheumatology 01/29/23 Site Safety Coordinator Relationship Specialty Start Date End Date Mounika Dick DO [address] [place] [address] PCP - General Family Medicine 09/29/23 Marifer Castellanos MD [address] [place] [address] [place] [address] Oncology 01/29/23 Gunner Hidalgo DO 703 [facility] [address] [place] [address] Referring Physician General Surgery 01/29/23 Chalo Menjivar MD [address] [place] [address] Referring Physician Rheumatology 01/29/23 Site Safety Coordinator Relationship Specialty Start Date End Date Roney Leroy, [address] [place] [address] PCP - General 05/19/00 Site Safety Coordinator Relationship Specialty Start Date End Date Mounika Dick DO [address] [place] [address] PCP - General Family Medicine 09/29/23 Marifer Castellanos MD [address] [facility] [place] [address] Oncology 01/29/23 Gunner Hidalgo DO 703 [facility] [address] [place] [address] Referring Physician General Surgery 01/29/23 Chalo Menjivar MD [address] [place] [address] Referring Physician Rheumatology 01/29/23 Meir Morrissey MD 703 [facility] [address] [place] [address] Referring Physician Gastroenterology 03/15/24 Site Safety Coordinator Relationship Specialty Start Date End Date Mounika Dick DO [address] [facility] [address] [place] [address] PCP - General Family Medicine 09/29/23 Marifer Castellanos MD [address] [place] [address] Oncology 01/29/23 Gunner Hidalgo DO 703 [facility] [address] [place] [address] Referring Physician General Surgery 01/29/23 Chalo Menjivar MD [address] [place] [address] Referring Physician Rheumatology 01/29/23 Meir Morrissey MD [address] [facility] [address] [place] [address] Referring Physician Gastroenterology 03/15/24 Site Safety Coordinator Relationship Specialty Start Date End Date Roney Leroy DO [address] [facility] [address] [place] [address] PCP - General 05/19/00 Site Safety Coordinator Relationship Specialty Start Date End Date Roney Leroy, [address] [facility] [address] [place] [address] PCP - General 05/19/00 Site Safety Coordinator Relationship Specialty Start Date End Date Roney Leroy DO [address] [facility] [address] [place] [address] PCP - General 05/19/00 Team Status: Inactive Member Role Status Dates Roney Leroy DO Primary Care Provider Active St art: May 11, 2024 End: May 11, 2024 Sade Garcia APRN Attending Provider Active Start: May 11, 2024 End: May 11, 2024 Site Safety Coordinator Relationship Specialty Start Date End Date Mounika Dick DO [address] [facility] [address] [place] [address] PCP - General Family Medicine 09/29/23 Marifer Castellanos MD [address] [place] [address] Oncology 01/29/23 Gunner Hidalgo DO 703 [facility] [address] [place] [address] Referring Physician General Surgery 01/29/23 Chalo Menjivar MD [address] [facility] [address] Referring Physician Rheumatology 01/29/23 Meir Morrissey MD [address] [facility] [address] [place] [address] Referring Physician Gastroenterology 03/15/24 Site Safety Coordinator Relationship Specialty Start Date End Date Mounika Dick DO [address] [place] [address] PCP - General Family Medicine 09/29/23 Marifer Castellanos MD 701 [facility] [place] [address] Oncology 01/29/23 Gunner Hidalgo DO 703 [facility] [address] [place] [address] Referring Physician General Surgery 01/29/23 Chalo Menjivar MD [address] [facility] [place] [address] Referring Physician Rheumatology 01/29/23 Meir Morrissey MD [address] [place] [address] Referring Physician Gastroenterology 03/15/24 Site Safety Coordinator Relationship Specialty Start Date End Date Roney Leroy, [address] [place] [address] PCP - General 05/19/00 Site Safety Coordinator Relationship Specialty Start Date End Date Roney Leroy DO [address] [place] [address] PCP - General 05/19/00 Site Safety Coordinator Relationship Specialty Start Date End Date Roney Leroy DO [address] [place] [address] PCP - General 05/19/00 Site Safety Coordinator Relationship Specialty Start Date End Date Mounika Dick DO [address] [place] [address] PCP - General Family Medicine 09/29/23 Marifer Castellanos MD [address] [facility] [place] [address] Oncology 01/29/23 Gunner Hidalgo DO 703 [facility] [address] [place] [address] Referring Physician General Surgery 01/29/23 Chalo Menjivar MD [address] [place] [address] Referring Physician Rheumatology 01/29/23 Meir Morrissey MD [address] [facility] [address] [place] [address] Referring Physician Gastroenterology 03/15/24 Team Status: Inactive Member Role Status Dates Roney Leroy DO Primary Care Provider Active St art: September 29, 2024 End: September 29, 2024 Sade Garcia APRN Attending Provider Active Start: September 29, 2024 End: September 29, 2024 Site Safety Coordinator Relationship Specialty Start Date End Date Roney Leroy DO [address] [facility] [address] [place] [address] PCP - General 05/19/00 INFORMATION SOURCE (unrecogn ized section and content) DATE CREATED AUTHOR 12/05/2021 [facility] DATE CREATED AUTHOR AUTHOR'S ORGANIZ ATION 12/09/2022 [facility] DATE CREATED AUTHOR AUTHOR'S ORGANIZ ATION 04/25/2024 [facility] DATE CREATED AUTHOR AUTHOR'S ORGANIZ ATION 09/08/2024 [facility] EPIC DATE CREATED AUTHOR AUTHOR'S ORGANIZ ATION 09/13/2024 [facility] DATE CREATED AUTHOR AUTHOR'S BREANNE CONKLIN 10/07/2024 [facility] Goals (unrecognized section and content) Goals may [...] BE BASED ON THE PRIMARY CLINICAL RECORDS. [facility] [employer] provides no warranty or guarantee of the accuracy or completeness of information in this document.
[2024-10-07] MEDS: POTASSIUM CHLORIDE 10 MEQ ER TABLET 30 MEQ PO (17:36)
[2024-10-07] MEDS: ACETAMINOPHEN 325 MG TABLET 650 MG PO (17:40)
[2024-10-07] MEDS: ATORVASTATIN CALCIUM 20 MG TABLET 80 MG PO (21:11)
[2024-10-07] MEDS: ENOXAPARIN SODIUM 40 MG/0.4 ML SYRINGE SUBQ (21:12)
[2024-10-08] VITALS (20 sets, daily range): BP systolic 129–150; BP diastolic 76–82; PULSE 84–112; TEMP 36.6–36.8; O2SAT 94–96
[2024-10-08] MEDS: LEVOTHYROXINE SODIUM 88 MCG TABLET PO (06:10)
[2024-10-08] MEDS: PANTOPRAZOLE SODIUM 40 MG TABLET.DR PO (06:10)
[2024-10-08 06:40] LABS: Hematocrit 39.2 % (36.0-48.0); Hemoglobin 12.8 g/dL (12.0-16.0); Immature Granulocytes Abs Auto 0.01 10^3/uL (0.00-0.03); Immature Granulocytes Pct Auto 0.1 % (0.0-0.5); Lymphocytes Absolute Auto 1.3 10^3/uL (1.2-3.8); Mean Corpuscular HGB Conc 32.7 g/dL (29.9-35.2); Mean Corpuscular Hemoglobin 32.0 pg (26.7-34.0); Mean Corpuscular Volume 98.0 fL (81.0-99.0); Platelet Count 287 10^3/uL (150-450); Red Blood Count 4.00 10^6/uL (4.20-5.40); White Blood Count 6.8 10^3/uL (4.0-11.0)
[2024-10-08 06:56] LABS: Anion Gap 12.4; Blood Urea Nitrogen 16.0 mg/dL (7.0-18.0); Calcium 9.6 mg/dL (8.5-10.1); Carbon Dioxide 31.4 mmol/L (21.0-32.0); Chloride 105 mmol/L (98-107); Cholesterol 187 mg/dL (<=200); Estimated GFR (African America >60 (>=60 mL/min/1.73m^2); Estimated GFR (Non-African Ame >60 (>=60 mL/min/1.73m^2); Glucose 89 mg/dL (74-106); HDL Cholesterol 62 mg/dL (40-60); Magnesium 1.6 mg/dL (1.8-2.4); Potassium 3.8 mmol/L (3.5-5.1); Sodium 145 mmol/L (136-145); Triglycerides 113 mg/dL (<=150); VLDL CHOLESTEROL 22.6 mg/dL
--- NOTE | 2024-10-08 09:30 | PM.HP ---
HPI H&P: HPI History of Present Illness Chief complaint: Ischenic Stroke Diplopia Narrative: Mrs. Lorenz is an 84-year-old female with a history of hypertension and breast cancer. Patient came to the emergency room complaining of double vision. This started last Wednesday, a week ago. 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 Patient also was noted to have macular degeneration and retinal detachment for which she has been following up with [facility] and had recently received eye injection. Patient saw her conveyor line battery charger 3 days ago for the injection. He told her that the double vision is not related to an ocular problem and instructed her to go to the emergency room. Patient did not show up to the emergency room up until yesterday. She continues to report double vision that resolves when patient closes 1 eye. Patient also reported having blurry vision and distortion of vision which could be related to her cornea and retinal issue. No prior history of stroke. No chest pain or palpitation. No fever or chills. No slurred speech. No confusion or disorientation no focal weakness or numbness. Opioid HPI Opioid Management Most Recent Pain and Opioid Data: Last Pain Scale 0 Today, 07:36 Last Pain Assessment 10/07/24, 16:34 Last MAR Pain Assessment 10/07/24, 17:40 Last ORT Total Score 0 10/07/24, 16:34 Last ORT Risk Category Low Risk 10/07/24, 16:34 Review of Systems ROS Status of ROS 10 or more systems reviewed and unremarkable except as noted in history and below [facility] Medical History (Updated 10/08/24 @ 09:34 by Lidia Young MD) H/O nephrolithotomy with removal of calculi ?Z98.890 - Other specified postprocedural states (ICD-10) ?Z87.442 - Personal history of urinary calculi (ICD-10) Kidney stone ?N20.0 - Calculus of kidney (ICD-10) Goiter colloid, toxic, 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 - Thyrotoxicosis with toxic multinodular goiter without thyrotoxic crisis or storm (ICD-10) Hypothyroidism ?E03.9 - Hypothyroidism, unspecified (ICD-10) Hypertension ?I10 - Essential (primary) hypertension (ICD-10) Breast cancer ?C50.919 - Malignant neoplasm of unspecified site of unspecified female breast (ICD-10) Surgical History (Updated 10/21/22 @ 07:04 by Arelis Jade RN) Cataract (lens) fragments in eye following cataract surgery, bilateral ?H59.023 - Cataract (lens) fragments in eye following cataract surgery, bilateral (ICD-10) History of knee replacement procedure of right knee ?Z96.651 - Presence of right artificial knee joint (ICD-10) History of knee replacement procedure of left knee ?Z96.652 - Presence of left artificial knee joint (ICD-10) Hx of appendectomy ?Z90.49 - Acquired absence of other specified parts of digestive tract (ICD-10) History of lumpectomy of right breast ?Z98.890 - Other specified postprocedural states (ICD-10) Family History (Updated 10/20/22 @ 14:23 by Brenda Mena) Mother Family history of CHF (congestive heart failure) Family history of diabetes mellitus Family history of hypertension Family history of myocardial infarction Grandfather Family history of COPD (chronic obstructive pulmonary disease) Family history of stroke Grandmother Family history of cancer Brother Family history of diabetes mellitus Father Family history of hypertension Social History Within the past year, how often did you have a drink containing alcohol: never Within the past year, how many standard drinks containing alcohol did you have on a typical day: 1 or 2 Within the past year, how often did you have six or more drinks on one occasion: never Total score: 0 Score interpretation: A score less than 3 is consistent with normal alcohol consumption. Smoking status: Former smoker Non-prescribed substance use: denies use Previous occupational history: Retired Highest level of school completed/degree received: high school graduate Are you now , , , , never or living with a partner: In a typical week, how many times do you talk on the telephone with family, friends, or neighbors: 3 or more times per week How often do you get together with friends or relatives: 3 or more times per week How often do you attend adventist or latter day services: 4 or more times per year Do you belong to any clubs or organizations such as adventist groups unions, fra[employer]ias[employer] or athletic groups, or school groups: no Total score: 2 Score interpretation: A score of greater than or equal to 2 indicates the lowest level of social isolation. Little interest or pleasure in doing things: not at all Feeling down, depressed, or hopeless: not at all Feel stressed/tense/nervous/anxious/difficulty sleeping: not at all Do you think of yourself as: straight/heterosexual Gender Identity: female Meds Home Medications and Allergies Home Medications ?Medication ?Instructions ?Recorded ?Confirmed ?Type anastrozole 1 mg tablet 1 mg PO DAILY 10/20/22 10/07/24 History denosumab 60 mg/mL subcutaneous 60 mg subcut .twice a year 10/20/22 10/07/24 History syringe (Prolia) duloxetine 60 mg capsule,delayed 60 mg PO DAILY 10/20/22 10/07/24 History release levothyroxine 88 mcg tablet 88 mcg PO QAM 10/20/22 10/07/24 History omeprazole 40 mg capsule,delayed 40 mg PO BID 10/20/22 10/07/24 History release chlorthalidone 25 mg tablet 25 mg PO DAILY 10/07/24 10/07/24 History dicyclomine 20 mg tablet 20 mg PO TID 10/07/24 10/07/24 History losartan 100 mg tablet 100 mg PO DAILY 10/07/24 10/07/24 History meloxicam 15 mg tablet 15 mg PO DAILY 10/07/24 10/07/24 History prednisolone acetate 1 % eye 1 drp ophthalmic (eye) DAILY 10/07/24 10/07/24 History drops,suspension Allergies Allergy/AdvReac Type Severity Reaction Status Date / Time No Known Drug Allergies Allergy Verified 10/20/22 09:12 Exam Narrative Exam Narrative: [pt is awake and alert. oriented to place, time and person HEENT: [place] conjunctiva and NL buccal mucosa Neck: Supple, no tenderness Endocrine: No Thyromegaly. Vascular: No JVD or carotid bruit. Lymphatic: No cervical lymphadenopathy. Chest: CTA no DTP. Heart RRR, no extra sound or murmur. Abd: Soft, no tenderness, no rebound and no rigidity. Increase abd girth therefore clinically I could not exclude the possibility of intra abd mass or organomegaly. LE: No cyanosis or clubbing, no varices or edema. Osteoarthritis deformities Neuro: A A O. Nl speech, comprehension and attention. Nl and symetrical motor and tone examination through out. Normal attention. Normal focus. Normal speech. Normal left facial symmetry. Normal ocular movement. No nystagmus. No ataxia. Double vision goes away after patient closes 1 eye. []] Constitutional Vital Signs, click to edit/add: Last Vital Signs Temp 98.0 F 10/08/24 07:36 Pulse 98 H 10/08/24 08:00 Resp 16 10/08/24 07:36 BP 135/78 10/08/24 07:36 Pulse Ox 94 L 10/08/24 07:36 O2 Del Method Room Air 10/08/24 07:36 Results Labs Labs: Short CBC 10/07/24 10/08/24 Range/Units 12:22 05:44 WBC 8.1 6.8 (4.0-11.0) 10^3/uL Hgb 13.3 12.8 (12.0-16.0) g/dL Hct 41.0 39.2 (36.0-48.0) % Plt Count 317 287 (150-450) 10^3/uL BMP 10/07/24 10/08/24 12:22 05:44 Sodium 141 145 Potassium 3.4 L 3.8 Chloride 101 105 Carbon Dioxide 31.7 31.4 BUN 18.0 16.0 Creatinine 0.73 0.65 Glucose 93 89 Calcium 9.6 9.6 Liver Function 10/07/24 Range/Units 12:22 Total Bilirubin 0.3 (0.2-1.0) mg/dL AST 14 L (15-37) U/L ALT 17 (14-59) U/L Alkaline Phosphatase 86 (46-116) U/L Albumin 3.3 L (3.4-5.0) g/dL Assessment and Plan Assessment and Plan (1) Diplopia: (2) Macular degeneration: (3) Cornea disorder: (4) Aneurysm, ophthalmic artery: (5) IBS (irritable bowel syndrome): (6) Rheumatoid arthritis: (7) Hypokalemia: (8) Hypomagnesemia: Plan Diplopia that goes away when the patient closes 1 eye. This is started 7 days ago. Emergency room physician had discussed her case with neurotology who did not recommend tPA due to timeframe 0 NIH score. He recommended aspirin and observation in the hospital as well as MRI of the brain. Patient was started on aspirin and statin. CT of the head does not show any stenosis, occlusion or dissection Reduced the dose of losartan to keep systolic above 160. Echocardiogram rule out valvular disease or cardiomyopathy. Telemetry monitoring rule out cardiac dysrhythmia or A-fib. Ophthalmic artery 3 mm aneurysmal dilatation. ER physician had discussed this with neuro telemetry. 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 Last injection was a few days ago. Patient is to follow-up with her conveyor line battery charger at [facility] Hypokalemia and hypomagnesemia Potassium and magnesium supplementation Hypertension Blood pressure is well-controlled. Reduce the dose of losartan to prevent relative hypotension. Goal is to keep systolic above 160 and less than 175 for the next several days. History of breast cancer status post lumpectomy followed by radiation treatment. Patient is to follow-up with Oncology Team. Rheumatoid arthritis Patient is to follow-up with her clinical research technician Chronic medical conditions not listed above, incidental findings seen on labs and imaging. These would need to be addressed. Could be addressed when time and condition are appropriate. Could be addressed in the outpatient setting by PCP collaboration with other needed outpatient providers.
[2024-10-08] MEDS: ACETAMINOPHEN 325 MG TABLET 650 MG PO ×2 (09:40→15:49)
[2024-10-08] MEDS: CHLORTHALIDONE 25 MG TABLET PO (09:41)
[2024-10-08] MEDS: LOSARTAN POTASSIUM 25 MG TABLET PO (09:41)
[2024-10-08] MEDS: ASPIRIN 81 MG TAB.CHEW PO (09:53)
[2024-10-08] MEDS: MAGNESIUM SULFATE/D5W 1 GM/100 ML PREMIX IV (09:53)
[2024-10-08] MEDS: PREDNISOLONE ACETATE OP 1% SUSP 100 DROPS/5 ML 1 DROP OP (09:54)
[2024-10-08] MEDS: SENNOSIDES/DOCUSATE SODIUM 1 TAB TABLET PO (15:50)
[2024-10-08] MEDS: DOCUSATE SODIUM 100 MG CAPSULE PO (15:50)
[2024-10-08] MEDS: ENOXAPARIN SODIUM 40 MG/0.4 ML SYRINGE SUBQ (21:40)
[2024-10-08] MEDS: ATORVASTATIN CALCIUM 40 MG TABLET 80 MG PO (21:40)
[2024-10-09] VITALS (22 sets, daily range): BP systolic 113–156; BP diastolic 63–78; PULSE 77–125; TEMP 36.4–36.8; O2SAT 92–95
[2024-10-09] MEDS: PANTOPRAZOLE SODIUM 40 MG TABLET.DR PO (05:51)
[2024-10-09] MEDS: LEVOTHYROXINE SODIUM 88 MCG TABLET PO (05:51)
[2024-10-09] MEDS: MAGNESIUM OXIDE 400 MG TABLET PO (08:05)
[2024-10-09] MEDS: LOSARTAN POTASSIUM 25 MG TABLET PO (08:05)
[2024-10-09] MEDS: CHLORTHALIDONE 25 MG TABLET PO (08:06)
[2024-10-09] MEDS: ASPIRIN 81 MG TAB.CHEW PO (08:06)
--- NOTE | 2024-10-09 09:18 | PM.PN ---
Progress Note: Subjective Subjective Interval history: Follow-up on patient. Patient continues to see a bubble. Intermittently, not constant. No other neurological deficit. No weakness, no numbness. No chest pain. No slurred speech. No shortness of breath. Exam Narrative Exam Narrative: [pt is awake and alert. oriented to place, time and person HEENT: [place] conjunctiva and NL buccal mucosa Neck: Supple, no tenderness Endocrine: No Thyromegaly. Vascular: No JVD or carotid bruit. Lymphatic: No cervical lymphadenopathy. Chest: CTA no DTP. Heart RRR, no extra sound or murmur. Abd: Soft, no tenderness, no rebound and no rigidity. Increase abd girth therefore clinically I could not exclude the possibility of intra abd mass or organomegaly. LE: No cyanosis or clubbing, no varices or edema. Osteoarthritis deformities Neuro: A A O. Nl speech, comprehension and attention. Nl and symetrical motor and tone examination through out. Normal attention. Normal focus. Normal speech. Normal left facial symmetry. Normal ocular movement. No nystagmus. No ataxia. Double vision goes away after patient closes 1 eye. []] Constitutional Vital Signs, click to edit/add: Last Vital Signs Temp 98.3 F 10/09/24 07:19 Pulse 105 H 10/09/24 08:00 Resp 20 10/09/24 07:19 BP 156/78 H 10/09/24 07:19 Pulse Ox 94 L 10/09/24 07:19 O2 Del Method Room Air 10/09/24 07:19 Progress Note: A&P Assessment and Plan (1) Diplopia: (2) Macular degeneration: (3) Cornea disorder: (4) Aneurysm, ophthalmic artery: (5) IBS (irritable bowel syndrome): (6) Rheumatoid arthritis: (7) Hypokalemia: (8) Hypomagnesemia: Plan Diplopia that goes away when the patient closes 1 eye. This started 8 days ago. Emergency room physician had discussed her case with neurotology who did not recommend tPA due to timeframe 0 NIH score. He recommended aspirin and observation in the hospital as well as MRI of the brain. Patient was started on aspirin and statin. CT of the head does not show any stenosis, occlusion or dissection Reduced the dose of losartan to keep systolic above 160. Echocardiogram rule out valvular disease or cardiomyopathy. Telemetry monitoring rule out cardiac dysrhythmia or A-fib. Thus far no cardiac dysrhythmia. Ophthalmic artery 3 mm aneurysmal dilatation. ER physician had discussed this with neuro telemetry. Neurologist did not believe that this is related to her vision issues He did not recommend any urgent intervention or evaluation Patient is to follow-up with her ophthalmology team at [facility]. 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 Last injection was a few days ago done at the [facility] corneal institution by her ophthalmology team. 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. Hypokalemia and hypomagnesemia Status post potassium and magnesium supplementation Repeat level in a.m. Hypertension Blood pressure is well-controlled. Reduce the dose of losartan to prevent relative hypotension. Goal is to keep systolic above 160 and less than 175 for the next several days. History of breast cancer status post lumpectomy followed by radiation treatment. Patient is to follow-up with Oncology Team. 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 These would need to be addressed. Could be addressed when time and condition are appropriate. Could be addressed in the outpatient setting by PCP collaboration with other needed outpatient providers.
[2024-10-09] MEDS: METOPROLOL SUCCINATE 25 MG TAB.ER.24H PO (16:00)
[2024-10-09] MEDS: ENOXAPARIN SODIUM 40 MG/0.4 ML SYRINGE SUBQ (21:22)
[2024-10-09] MEDS: PREDNISOLONE ACETATE OP 1% SUSP 100 DROPS/5 ML 1 DROP OP (21:22)
[2024-10-09] MEDS: ATORVASTATIN CALCIUM 40 MG TABLET 80 MG PO (21:22)
[2024-10-10] VITALS (10 sets, daily range): BP systolic 112–123; BP diastolic 60–71; PULSE 75–92; TEMP 36.5–36.7; O2SAT 92–96
--- NOTE | 2024-10-10 03:27 | PC.NURSE ---
Patient c/o double vision at this time. She states it's not there all the time
[2024-10-10] MEDS: PANTOPRAZOLE SODIUM 40 MG TABLET.DR PO (05:33)
[2024-10-10] MEDS: LEVOTHYROXINE SODIUM 88 MCG TABLET PO (05:33)
[2024-10-10 05:34] LABS: Anion Gap 9.5; Blood Urea Nitrogen 17.0 mg/dL (7.0-18.0); Calcium 9.4 mg/dL (8.5-10.1); Carbon Dioxide 32.0 mmol/L (21.0-32.0); Chloride 105 mmol/L (98-107); Estimated GFR (African America >60 (>=60 mL/min/1.73m^2); Estimated GFR (Non-African Ame >60 (>=60 mL/min/1.73m^2); Glucose 100 mg/dL (74-106); Magnesium 1.5 mg/dL (1.8-2.4); Potassium 3.5 mmol/L (3.5-5.1); Sodium 143 mmol/L (136-145)
--- OUTSIDE RECORDS SUMMARY | 2024-10-10 06:04 | XMS_ITS | CCD ---
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 Name Role Phone Roney Leroy Primary Care Provider UnavailPooja England Attending Provider Unavailable Afshin Leroy Attending Provider Unavailable Roney Leroy DO Primary Care Provider Meir Morrissey Unavailable Roney Leroy DO Primary Care Provider RONEY ELROY Primary Care Physician Isiah Alvares Consulting Unavailable SCOTT COLVIN Attending Unavailable SCOTT COLVIN Admitting Unavailable RAD, DR CHAMBERLAIN Primary Care Unavailable MARC, WARREN Consulting Unavailable SCOTT COLVIN Consulting Unavailable TASHI ESCOBAR Consulting Unavailable EVENS, DR NOE Bailey Admitting Unavailable EVENS, DR ONE Bailey Attending Unavailable EVENS, DR NOE Bailey [...] Leroy DO Primary Care Provider Emanuel AGUAYO, aMrifer Gauthier Unavailable Gunner Hidalgo DO Unavailable Chalo Menjivar MD Unavailable Roney Leroy DO Primary Care Provider DO Roney Leroy Primary Care Provider DO Gunner Hidalgo Referring Provider CANDY Siddiqui Attending Provider Mounika Dick DO Primary Care Provider Meir Morrissey MD Unavailable Silvia Bianchi Attending Unavailable Noe LOZA Admitting Unavailable Noe LOZA Attending Unavailable Roney Leroy DO Primary Care Provider Shawn SIFUENTES, Gunner Referring Provider Elsa Siddiqui APRN Attending Provider Sade Garcia APRN Attending Provider Meir Morrissey MD Unavailable Roney Leroy DO Primary Care Provider SAGAR DCIKOTHY Rocio Attending Unavailable SAGAR DICKOTHY L Referring Unavailable MOUNIKA DICK Attending Unavailable CAROLYNE KLINE Attending Unavailable RONEY LEROY Attending Unavailable GUNNER HIDALGO Attending Unavailable ANABELLE KEITA Attending Unavailable MOUNIKA DICK Attending Unavailable RONEY LEROY Referring Unavailable SADE OLIVAS Attending Unavailable RONEY LEROY Referring Unavailable JAH SUTHERLAND Attending Unavailable AHNG WHEELER Attending Unavailable MOUNIKA DICK Attending Unavailable MOSES RICHARDS Attending Unavailable JAH SUTHERLAND Attending Unavailable HANG WHEELER Attending Unavailable MOUNIKA DICK Attending Unavailable MOUNIKA DICK Referring Unavailable Roney Leroy DO Primary Care Provider [phone] Rodrigo FANG, Esme Hernandez Attending Provider Shawn SIFUENTES, Gunner Referring Provider Elsa Siddiqui APRN Attending Provider Elsa Siddiqui Attending Unavail able Gunner Hidalgo Referring Unavailable Roney Leroy Primary Care Unavailable Elsa Siddiqui Admitting Unavail able BRANDO SHIELDS A Attending Unavailable BRANDO SHIELDS A Referring Unavailable RONEY LEROY Primary Care Unavailable RONEY LEROY Primary Care Unavailable CHALO MENJIVAR Referring Unavailable RONEY LEROY Primary Care Unavailable OTTOCHALO Castillo Referring Unavailable RONEY LEROY Primary Care Unavailable MAMMO, BRANDO A Attending Unavailable MAMMO, BRANDO A Referring Unavailable RONEY LEROY Primary Care Unavailable JOSE MIGUELLILLIENIC Attending Unavailable SELF Referring Unavailable MAMMO, BRANDO A Attending Unavailable MAMMO, BRANDO A Referring Unavailable RONEY LEROY Primary Care Unavailable RONEY LEROY Primary Care Unavailable OTTO, CHALO Referring Unavailable RADRONEY DOVE Primary Care Unavailable MAMMO, BRANDO A Referring Unavailable JOSE, JESSICA Attending Unavailable RONEY LEROY Primary Care Unavailable [...] INE] Drug Allergy 06-28-2020 Other: See Comments [facility] Work Phone: Medications Current Medications Medication Drug Class(es) Dates Sig (Normalized) Sig (Original) acetaminophen 500 mg oral tablet (20 sources) Start: 03-17-2016 take 2 tablets by mouth three times daily acetaminophen (TYLENOL) 500 mg tablet Take 2 tablets by mouth three times daily. 03/17/2016 Active Start: 03-17-2016 take 2 tablets by [facility] every six hours as needed acetaminophen (Tylenol) 500 mg tablet Take 2 tablets (1,000 mg) by mouth every 6 hours if needed. 0 03/17/2016 Active Comment on above: Take 2 tablets by mo [facility] three times daily. [id number] 200 actuat albuterol 0.09 mg/actuat metered dose [...] the event of a Fluress shortage, administer Vilas-Fluor 1 drop into both eyes as directed [...] the event of a Fluress shortage, administer Vilas-Fluor 1 drop into both eyes as directed [...] Start: 02-26-2015 take 2 tablets by mo [facility] once daily cholecalciferol (VITAMIN D3) 2,000 unit tablet Take 2 tablets by mouth once daily. 0 02/26/2015 Active Start: 02-26-2015 take 2 tablets by mo [facility] once daily cholecalciferol (Vitamin D-3) 50 MCG (2000 UT) tablet Take 2 tablets (4,000 Units) by mouth once daily. 0 02/26/2015 Active take 1 capsule by mo [facility] once daily cholecalciferol (Vitamin D-3) 50 MCG (1999 UT) capsule Take 2,000 Units by mouth Daily Active Comment on above: Take 2 tablets by mo [facility] once daily. Cholecalciferol (Vitamin D3) (Vitamin D3) 4,000 unit Capsule (7 sources) Start: 11-03-19 take 1 capsule by mouth once daily Cholecalciferol (Vitamin D3) (Vitamin D3) 4,000 unit Capsule Active 4000 UNIT PO Daily November 02, 2018 12:00am Complies with drug therapy Start: 11-02-2018 take 1 capsule by [facility] once daily Cholecalciferol (Vitamin D3) (Vitamin D3) [...] / neomycin 3.5 mg/ml / polymyxin b [id number] unt/ml ophthalmic suspension (8 sources) Aminoglycoside Antibacterial, [...] Active 20 MG PO Three times daily 90 December 08, 2023 12:00am Complies with drug therapy Start: 05-22-2021 [...] Apply 1/2 inch ribbon per application Hyaluronic Jd-Zanmikqgy-Xekr (1 source) Start: 09-22-2018 Hyaluronic Ps-Mnqzxzddp-Wiwi Active 1 APPLIC Topical Three times daily [...] Comment on above: Take 3,000 mcg by [facility] once daily. Vitamin D (2 sources) Start: [...] hours as needed for pain Hydrocodone-Acetami nophen (Bagdad) 5-325 mg tablet Discontinued 1 - 2 TAB PO EVERY 4-6 HOURS as needed for pain 14 3 September 06, 2018 November 01, 2018 2:18pm Start: 08-02-2018 End: 08-15-2018 take 1 tablet by mouth every four to six hours as needed for pain Hydrocodone-Acetaminophen (Bagdad) 5-325 mg tablet Discontinued 1 - 2 TAB PO EVERY 4-6 HOURS as needed for pain 10 August 02, 2018 August 15, 2018 9:09am Start: 11-07-2016 End: 07-26-2018 take 1 tablet by mouth every four hours Hydrocodone-Acetaminophen (Bagdad) 5-325 mg tablet Discontinued 1 TAB PO [...] mg Tablet Discontinued 1 MG PO Daily November 23, 2022 8:37am November 23, 2023 [...] End: 10-27-2023 ergocalciferol (Vitamin D2) 1.25 MG (05469 UT) capsule TAKE 1 CAPSULE TWICE A [...] cap.. 16 g 01/12/2024 03/08/2024 Discontinued Hyaluronic Oz-Qoiplzqet-Safe (Radiaplexrx) Gel (7 sources) Start: 09-22-2018 End: 02-21-2019 Hyaluronic Uv-Wyeqpkmyk-Imll (Radiaplexrx) Gel Discontinued 1 APPLIC TOPICAL Three [...] 14 capsule 01/26/2024 02/02/2024 Start: 10-18-2023 End: 09-16-2024 take 1 capsule by mouth in the [...] tonsils and adenoids] Onset: 3 08-13-2022 Chronic Acute cerebrovascular disease (1 source) Acute cerebrovascular disease Onset: 5 Asthma (20 sources) Mild intermittent asthma; Translations: [...] 09-08-2023 Episodic Other aftercare (1 source) Other assisted (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 therapy; Translations: [OTH PENITENTIARY CURRENT DRUG THERAPY] Onset: 2 Episodic Other [...] Other eye disorders (1 source) History of hsfkont-tcnyvhwn-jkwqqf (YAG) laser capsulotomy of lens; Translations: [Cataract [...] history of other medical treatment] 11-29-2023 Episodic Residual codes; unclassified (1 source) Pain, unspecified; Translations: [Pain, unspecified] Onset: 5 Episodic Retinal detachments; defects; vascular occlusion; and [...] (20 sources) Patient encounter status; Translations: [Other x ray nurse (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 therapy] Onset: 3 02-10-2012 Episodic Other aftercare (20 sources) Drug therapy finding; Translations: [Other assisted (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 therapy] Onset: 7 06-15-2016 Episodic Other aftercare (20 sources) Long-term current use of drug therapy; Translations: [Other x ray nurse (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 therapy] Onset: 3 02-10-2012 Episodic [...] Results Test Name Value Interpretation Reference Range [facility] AVASTIN (BEVACIZUMAB) 1.25MG INTRAVITREAL INJECTION OD (RIGHT EYE)on 10-05-2024 [facility] AVASTIN (BEVACIZUMAB) 1.25MG INTRAVITREAL INJECTION OS (LEFT EYE)on 10-05-2024 [facility] FUNDUS AUTOFLUORESCENCE PHOT O (FAF) OU (BOTH EYES)on 10-05-2024 [facility] Radiology Study observation (narrative) [facility] OCT MACULA CIRRUS OU (BOTH E YES)on 10-05-2024 [facility] Radiology Study observation (narrative) [facility] Trudy 09-14-2024 DERICK Telephone (TIFFANY) FANTASMA LEWIS ([id number]) 1940 F Date Time Provider Department 09/14/24 CHALO MENJIVAR During your visit today, we recorded the following information about you: Felicia Perry LPN 09/14/2024 10:11 AM Signed Received Bone density report form [facility]. Results placed on your desk for review. Chalo Menjivar MD 09/15/2024 6:48 AM Signed Please Call patient if MyChart note not read to review results/released to My Chart if tests completed at [facility]: Bone mineral density shows osteopenia/improved spine and left hip/mildly decreased left forearm- will monitor. Happy to further review and discuss at follow up visit. Thank you. 09/13/24 eye exam 09/05/24 formerly [facility] bmd osteopenia/improved spine and left hip/mildly decreased left forearm L1-L4 1.408g/cm2, tscore 3.3, zscore 6.1 Left fem neck 0.825g/cm2, tscore-0.2, zscore2.2; Left total hip 0.969g/cm2, tscore0.2,zscore 2.4; Right fem neck 0.800g/cm2, tscore -0.4, zscore2; Right total hip 0.969g/cm2, tscore 0.2, zscore2.4 Left /3 forearm 0.578g/cm2, tsocre -1.9;zscore 1.5; 09/04/24 AND [...] degeneration) Date Reviewed: 09/13/2024 Reviewed by: David Tomlin OD - Fully Assessed Reason for Visit: Results [95] Cmt: [facility] Prescriptions as of 09/15/2024 - antiox #8/om3/dha/epa/lut/leonidas [...] (posterior cap (more content not included)... [facility] CNN[facility]SEon 09-04-2024 CNNURSE Nurse Visit (TIFFANY) FANTASMA LEWIS ([id number]) 1940 F Date Time Provider Department 09/04/24 2:00 PM NURSE [facility]EC[facility] NALIN[facility] ALLEN During your visit today, we [...] Encounter Status:Closed by FELICIA PERRY [facility]04/[facility] C[facility] Tele[facility] (RHEULN) FANTASMA LEWIS ([id number]) 1940 F Date Time Provider Department 08/28/24 CHALO MENJIVAR During your visit today, we recorded the following information about you: Felicia Perry LPN 08/28/2024 3:14 PM Signed Laverne VILLAFANA pended. Chalo Menjivar MD 08/28/2024 4:25 PM [...] Encounter Status:Closed by CHALO MENJIVAR on 08/28/24 [facility] 08-17-2024 CNPN Telephone (TIFFANY) FANTASMA LEWIS ([id number]) 1940 F Date Time Provider Department 08/17/24 CHALO MENJIVAR During your visit today, we recorded the following information about you: Chalo Menjivar MD 08/17/2024 2:41 PM Signed Please Call patient if MyChart [...] provider. Not concerning :) Thank you. Josefina NavaSALENA 08/21/2024 8:14 AM Signed Pt read seedtag message. Allergies As of Date: 08/17/2024 Noted [...] macular degeneration of b*04/06/2024 Encounter Status:Closed by NIRMARLA JOSEFINA on 08/21/24 Normal [facility] 25(OH)D3 [facility] 25-hydroxyvitamin D3 [Mass/Vol] 45.8 ng/mL Normal 31.0-80.0 [facility] Comment on above: Order Comment: Speci men Type: BLOOD SPECIMENOrdering Facility: [facility] Address: [address] [place] [address] Result Comment: Clas sification of 25 [place] Vitamin D status: Deficiency/Insufficiency: < or = 30 ng/ml. Sufficiency/Optimal Levels: 31-80 ng/mL Toxicity: > 100 ng/mL. Test performed by chemiluminescent immunoassay. Performed By: #### 1 989-3 ####[facility] LABCLIA [id number] [address] [place] [facility] CALCIUM [facility]-NCon Calcium [Mass/Vol] 10.1 mg/dL 8.5 - 10. 2 mg/dL [facility] Specimen Type: BLOOD SPECIMEN [facility] Address: [address] [place] [address] Original Ordering Provider: CHALO MOY [facility] Calcium [facility]-mCncon 025 Calcium [Mass/Vol] 10.1 mg/dL Normal 8.5-10.2 [facility] Comment on above: Order Comment: Speci men Type: BLOOD SPECIMENOrdering Facility: [facility] Address: [address] [place] [address] Performed By: #### 1 7861-6 ####[facility] LABCLIA [id number] [place] [address] Trudy 08-10-2024 CNPN Telephone (TIFFANY) FANTASMA LEWIS ([id number]) 1940 F Date Time Provider Department 08/10/24 CHALO MENJIVAR During your visit today, we recorded the following information about you: Swathi Mcclure 08/10/2024 9:38 AM Signed Pt requesting to schedule next prolia injection. Patient has been identified by name and birthdate. Duration of symptoms: N/A Person calling: self Call patient at: on cell [phone] (home) [phone] (cell) Was an appointment scheduled: No Closing statement: Results or non-symptom based questions: Thank you for calling [facility], your call will be returned within the next business day. Swathi Morgan Jewell Miller 08/10/2024 10:28 AM Signed [...] up with her on cell phone at [phone] per her request. Please review and reach [...] Fully Assessed Reason for Visit: Patient Question [5747] Appointment [186] Prescriptions as of 08/10/2024 - [...] edema [R60.0] (more content not included)... Normal [facility] MM screening mammo BI w/CADo n 06-26-2024 MM screening mammo BI w/CAD [facility] [address] [place], [place] [id number] Mammography Report Signed Patient: Fantasma Lewis MR#: [id number] : 1940 Acct:[id number] Age/Sex: 84 / F Adm Date: 06/26/24 Loc: XT Room: Type: [facility] Attending Dr: Elsa Siddiqui VICE PRESIDENT OF HUMAN RESOURCES Ordering Provider: Elsa Siddiqui APRN Date of Service: 06/26/24 Procedure(s): MM screening mammo BI w/CAD Accession Number(s): ([id number]) MM/MM screening mammo BI w/CAD: D05.11 - [...] Quispe M.D. 06/26/2024 10:53 AM Dictation Location: [facility] Dictated By: Maynor Quispe MD 06/26/24 1037 Signed By: 06/26/24 1053 Normal [facility] XR Abdomen 1 Viewon 04-20-19 XR Abdomen 1 View Exam Date/Time: 04/18/2024 [...] LOZA FINAL REPORT Dictated: 04/19/2024 11:52 am SignShay dove MD Signed (Electronic Signature): 04/19/2024 11:52 am Signed by: Shay Suero MD Transcribed by: MARY Technologist: KIERA Hernandez [facility] Urology Office/Clinic Noteon 04-18-2024 Urology Office/Clinic [...] with voice recognition artificial intelligence software, specifically WikiYou, Tengion and or Adallom. Substitutions may have occurred due to the [...] calculi CT AP wo con 10/27/23 at [facility] w/o mention of stones KUB completed IO [...] UTI sxs. Follow-up With When Contact Information ALLYN Bianchi APRN, Silvia X, FAM, URL Additional Instructions: 18 mos KUB Patient Education Dietary Guidelines to Help Prevent Kidney Stones Kidney Stones, Ogzw-yd-Umaq Problem List/Past Medical History Ongoing Arthritis Epididymitis [...] Immunizations Vaccine Date Status Comments SARS-CoV-2 (COVID-19) mRNAMUL.ORD![id number] 01/23/2022 Recorded influenza virus vaccine, inactivated 12/19/2021 Recorded SARS-CoV-2 (COVID-19) mRNA BNT-162b2 vax 12/25/2020 Recorded SARS-CoV-2 (COVID-19) mRNA BNT-162b2 vax 03/29/2020 Recorded 2021-11-18: [id number] SARS-CoV-2 (COVID-19) mRNA-1273 vaccine 03/2020 Recorded SARS-CoV-2 (COVID-19) mRNA BNT-162b2 vax 03/08/2020 Re (more content not included)... Normal [facility] Comment on above: Result Comment: Elec tronically Signed By: ALLYN Bianchi APRN, [place] X\.br\Date and Time Signed: 04/18/24 13:57 EDT AVASTIN (BEVACIZUMAB) 1.25MG INTRAVITREAL INJECTION OD (RIGHT EYE)on 04-06-2024 [facility] AVASTIN (BEVACIZUMAB) 1.25MG INTRAVITREAL INJECTION OS (LEFT EYE)on 04-06-2024 [facility] OCT MACULA CIRRUS OU (BOTH E YES)on 04-06-2024 [facility] Radiology [facility]narrative[facility] XR Hip - right 3 Viewson XR [...] signed and approved by the interpreting Radiologist. [facility] XR Shoulder - right 2 Viewso n [...] signed and approved by the interpreting Radiologist. [employer] XR Shoulder - right 2 ViewsO rdered By: Fernando Keita on 2024 [facility] [employer] Work Phone: No Panel Informationon 03-08 Radiology Study observation (narrative) [facility] [employer] XR HIP 2 OR 3 VW RIGHTon [...] 03-06-2024 CNNURSE Nurse Visit (TIFFANY) FANTASMA LEWIS ([id number]) 1940 F Date Time Provider Department 03/06/24 11:30 AM NURSE [facility]EC[facility] N[facility] ALLEN During your visit today, we [...] Status:Closed by FELICIA PERRY on 03/06/24 Normal [facility] Trudy 03-05-2024 CNPN Telephone (SANDYULN) FANTASMA LEWIS ([id number]) 1940 F Date Time Provider Department 03/05/24 [...] Hypocalcemia [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 25-hydroxyvitamin D3 [Mass/Vol] 47.1 ng/mL Normal 31.0-80.0 [facility] Comment on above: Order Comment: Speci men Type: BLOOD SPECIMENOrdering Facility: [facility] Address: [address] [place] [address] Result Comment: Clas sification of 25 [place] Vitamin D status: Deficiency/Insufficiency: < or = 30 ng/ml. Sufficiency/Optimal Levels: 31-80 ng/mL Toxicity: > 100 ng/mL. Test performed by chemiluminescent immunoassay. Performed By: #### 1 989-3 ####[facility] LABCLIA [id number] [address] [facility] CBC panel Auto (Bld)on 03-02 Erythrocyte distribution width (RBC) [Ratio] 13.1 % Normal 11.5-15.0 [facility] Comment on above: Order Comment: Speci men Type: BLOOD SPECIMENOrdering Facility: [facility] Address: [address] [place] [address] Performed By: #### 5 8410-2 ####[facility] LABCLIA [id number] [place] [address] Hematocrit (Bld) [Volume fraction] 41.9 % Normal 36.0-46.0 [facility] Comment on above: Order Comment: Speci men Type: BLOOD SPECIMENOrdering Facility: [facility] Address: [address] [place] [address] Performed By: #### 5 8410-2 ####[facility] LABCLIA [id number] [place] [address] Hemoglobin (Bld) [Mass/Vol] 13.5 g/dL Normal 11.5-15.5 [facility] Comment on above: Order Comment: Speci men Type: BLOOD SPECIMENOrdering Facility: [facility] Address: [address] [place] [address] Performed By: #### 5 8410-2 ####[facility] LABCLIA [id number] [place] [address] MCH (RBC) [Entitic mass] 31.5 pg Normal 26.0-34.0 [facility] Comment on above: Order Comment: Speci men Type: BLOOD SPECIMENOrdering Facility: [facility] Address: [address] [place] [address] Performed By: #### 5 8410-2 ####[facility] LABCLIA [id number] [place] [address] MCHC (RBC) [Mass/Vol] 32.2 g/dL Normal 30.5-36.0 [facility] Comment on above: Order Comment: Speci men Type: BLOOD SPECIMENOrdering Facility: [facility] Address: [address] [place] [address] Performed By: #### 5 8410-2 ####[facility] LABCLIA [id number] [place] [address] MCV (RBC) [Entitic vol] 97.7 fL Normal 80.0-100.0 [facility] Comment on above: Order Comment: Speci men Type: BLOOD SPECIMENOrdering Facility: [facility] Address: [address] [place] [address] Performed By: #### 5 8410-2 ####[facility] LABCLIA [id number] [place] [address] Nucleated RBC (Bld) [#/Vol] 10*3/uL Normal <0.01 [facility] Comment on above: Order Comment: Speci men Type: BLOOD SPECIMENOrdering Facility: [facility] Address: [address] [place] [address] Performed By: #### 5 8410-2 ####[facility] LABCLIA [id number] [place] [address] Platelet mean volume (Bld) [Entitic vol] 9.7 fL Normal 9.0-12.7 [facility] Comment on above: Order Comment: Speci men Type: BLOOD SPECIMENOrdering Facility: [facility] Address: [address] [place] [address] Performed By: #### 5 8410-2 ####[facility] LABCLIA [id number] [place] [address] Platelets (Bld) [#/Vol] 349 10*3/uL Normal 150-400 [facility] Comment on above: Order Comment: Speci men Type: BLOOD SPECIMENOrdering Facility: [facility] Address: [address] [place] [address] Performed By: #### 5 8410-2 ####[facility] LABIA [id number] [place] [address] RBC (Bld) [#/Vol] 4.29 10*6/uL Normal 3.90-5.20 [facility] Comment on above: Order Comment: Speci men Type: BLOOD SPECIMENOrdering Facility: [facility] Address: [address] [place] [address] Performed By: #### 5 8410-2 ####[facility] LABIA [id number] [place] [address] WBC (Bld) [#/Vol] 8.78 10*3/uL Normal 3.70-11.00 [facility] Comment on above: Order Comment: Speci men Type: BLOOD SPECIMENOrdering Facility: [facility] Address: [address] [place] [address] Performed By: #### 5 8410-2 ####[facility] LABIA [id number] [place] [address] [facility] CBC PNL BLD AUTOon 03-02 [facility] NRBC # BLD AUTO <0.01 NINF [facility] PLATELET # BLD AUTO [address] [facility] PMV BLD AUTO 9.7 fL 9.0 - 12.7 fL [facility] WBC # BLD AUTO 8.78 [facility] Erythrocyte distribution width (RBC) [Ratio] 13.1 % 11.5 - 15.0 % [facility] Hematocrit (Bld) [Volume fraction] 41.9 % 36.0 - 46.0 % [facility] Hemoglobin (Bld) [Mass/Vol] 13.5 g/dL 11.5 - 15.5 g/dL [facility] MCH (RBC) [Entitic mass] 31.5 pg 26.0 - 34.0 pg [facility] MCHC (RBC) [Mass/Vol] 32.2 g/dL 30.5 - 36.0 g/dL [facility] MCV (RBC) [Entitic vol] 97.7 fL 80.0 - 100.0 fL [facility] RBC (Bld) [#/Vol] 4.29 10*6/uL 3.90 - 5.2 0 m/uL [facility] Specimen Type: BLOOD SPECIMEN [facility] Address: [address] [place] [address] Original Ordering Provider: CHALO MOY [facility] CRP SerPl-ncon 03-02-2024 CRP [Mass/Vol] 0.3 mg/dL Normal <0.9 [facility] Comment on above: Order Comment: Speci men Type: BLOOD SPECIMENOrdering Facility: [facility] Address: [address] [place] [address] Performed By: #### 1 988-5 ####[facility] LABCLIA [id number] [place] [address] [place] Comprehensive metabolic 2000 panelon 03-02-2024 Albumin [Mass/Vol] 4.3 g/dL Normal 3.9-4.9 [facility] Comment on above: Order Comment: Speci men Type: BLOOD SPECIMENOrdering Facility: [facility] Address: [address] [place] [address] Performed By: #### 3 084-1, 16330-4 ####[facility] LABCLIA [id number] [place] [address] ALP [Catalytic activity/Vol] 85 U/L Normal 34-123 [facility] Comment on above: Order Comment: Speci men Type: BLOOD SPECIMENOrdering Facility: [facility] Address: [address] [place] [address] Performed By: #### 3 084-1, ####[facility] LABCLIA [id number] [place] [address] ALT [Catalytic activity/Vol] 5 U/L Low 7-38 [facility] Comment on above: Order Comment: Speci men Type: BLOOD SPECIMENOrdering Facility: [facility] Address: [address] [place] [address] Performed By: #### 3 084-1, ####[facility] LABCLIA [id number] [place] [address] Anion gap [Moles/Vol] 10 mmol/L Normal 8-15 [facility] Comment on above: Order Comment: Speci men Type: BLOOD SPECIMENOrdering Facility: [facility] Address: [address] [place] [address] Performed By: #### 3 084-1, ####[facility] LABCLIA [id number] [place] [address] AST [Catalytic activity/Vol] 10 U/L Low 13-35 [facility] Comment on above: Order Comment: Speci men Type: BLOOD SPECIMENOrdering Facility: [facility] Address: [address] [place] [address] Performed By: #### 3 084-1, 20146-3 ####[facility] LABCLIA [id number] [place] [address] Bilirubin [Mass/Vol] 0.3 mg/dL Normal 0.2-1.3 [facility] Comment on above: Order Comment: Speci men Type: BLOOD SPECIMENOrdering Facility: [facility] Address: [address] [place] [address] Performed By: #### 3 084-1, 74981-0 ####[facility] LABCLIA [id number] [place] [address] Calcium [Mass/Vol] 10.3 mg/dL High 8.5-10.2 [facility] Comment on above: Order Comment: Speci men Type: BLOOD SPECIMENOrdering Facility: [facility] Address: [address] [place] [address] Performed By: #### 3 084-1, ####[facility] LABCLIA [id number] [place] [address] Chloride [Moles/Vol] 98 mmol/L Normal 98-107 [facility] Comment on above: Order Comment: Speci men Type: BLOOD SPECIMENOrdering Facility: [facility] Address: [address] [place] [address] Performed By: #### 3 084-1, ####[facility] LABCLIA [id number] [place] [address] CO2 [Moles/Vol] 32 mmol/L High 22-30 [facility] Comment on above: Order Comment: Speci men Type: BLOOD SPECIMENOrdering Facility: [facility] Address: [address] [place] [address] Performed By: #### 3 084-1, ####[facility] LABCLIA [id number] [place] [address] Creatinine [Mass/Vol] 0.85 mg/dL Normal 0.58-0.96 [facility] Comment on above: Order Comment: Speci men Type: BLOOD SPECIMENOrdering Facility: [facility] Address: [address] [place] [address] Performed By: #### 3 084-1, 88231-6 ####[facility] LABCLIA [id number] [place] [address] Creatinine and Glomerular filtration rate.predicted panel (S/P/Bld) 69 mL/min/1.73m??? Normal >=60 [facility] Comment on above: Order Comment: Juan mondragon Type: BLOOD SPECIMENOrdering Facility: [facility] Address: [address] [place] [address] Result Comment: Sondra mated Glomerular Filtration Rate [...] actual GFR. Performed By: #### 3 084-1, 92337-0 ####[facility] LABIA [id number] [place] [address] Glucose [Mass/Vol] 94 mg/dL Normal 74-99 [facility] Comment on above: Order Comment: Juan mondragon Type: BLOOD SPECIMENOrdering Facility: [facility] Address: [address] [place] [address] Result Comment: The Citizen [place] Diabetes Association (ADA) provides guidance for cutoff [...] Standards of Medical Care in Diabetes 2016, Citizen [place] Diabetes Association. Diabetes Care. 2016.39(Suppl 1). Performed By: #### 3 084-1, 76265-9 ####[facility] LABIA [id number] [place] [address] Potassium [Moles/Vol] 4.0 mmol/L Normal 3.7-5.1 [facility] Comment on above: Order Comment: Speci men Type: BLOOD SPECIMENOrdering Facility: [facility] Address: [address] [place], [place] [address] Performed By: #### 3 084-1, 29780-3 ####[facility] LABCLIA [id number] [place] [address] Protein [Mass/Vol] 6.5 g/dL Normal 6.3-8.0 [facility] Comment on above: Order Comment: Speci men Type: BLOOD SPECIMENOrdering Facility: [facility] Address: [address] [place] [address] Performed By: #### 3 084-1, 01762-0 ####[facility] LABCLIA [id number] [place] [address] Sodium [Moles/Vol] 140 mmol/L Normal 136-144 [facility] Comment on above: Order Comment: Speci men Type: BLOOD SPECIMENOrdering Facility: [facility] Address: [address] [place] [address] Performed By: #### 3 084-1, 42936-1 ####[facility] LABCLIA [id number] [place] [address] Urea nitrogen [Mass/Vol] 14 mg/dL Normal 7-21 [facility] Comment on above: Order Comment: Speci men Type: BLOOD SPECIMENOrdering Facility: [facility] Address: [address] [place] [address] Performed By: #### 3 084-1, 50601-6 ####[facility] LABCLIA [id number] [place] [address] ESR Westergren method (Bld) [Velocity]on 03-02-2024 ESR (Bld) [Velocity] 13 mm/h Normal 0-20 [facility] Comment on above: Order Comment: Speci men Type: BLOOD SPECIMENOrdering Facility: [facility] Address: [address] [place] [address] Performed By: #### 4 537-7 ####[facility] LABCLIA [id number] [facility]OS[facility]ITALEdilberto [id number] [id number] [place] Urate SerPl-mCncon 5 Urate [Mass/Vol] 3.7 mg/dL Normal 2.5-6.6 [facility] Comment on above: Order Comment: Speci men Type: BLOOD SPECIMENOrdering Facility: [facility] Address: [address] [place] [address] Performed By: #### 3 084-1, 23440-3 ####[facility] LABCLIA [id number] [place] [address] No Panel Informationon 01-26 ACINETOBACTER BAUMANII 0 [...] Healthcare STREPTOCOCCUS PYOGENES (GROUP A STREP) 0 [facility] STREPTOCOCCUS PYOGENES (GROUP A STREP) Not detected [facility] Laboratory - Chemistry and C hemistry - challengeon 01-26-2024 Bilirubin Ql (U) Negative Negative [facility] Glucose [Mass/Vol] Negative Negative [facility] Ketones Ql (U) Negative Negative [facility] pH (U) 6 [pH] 5.0 - 6.0 [facility] Specific gravity (U) [Rel density] 1.005 1.001 - 1.035 [facility] Urobilinogen (U) [Mass/Vol] 0.2 mg/dL 0.2 - 1.0 [facility] - Hematology and Cell countson 01-26-2024 Hemoglobin Ql (U) Negative Negative [facility] Laboratory - Urinalysison Nitrite Ql (U) Negative Negative [facility] Protein Ql (U) Negative Negative [facility] No Panel Informationon 01-25 Interpretation and review of laboratory results Abnormal [facility] LEUKOCYTES 3+ Negative [facility] AVASTIN (BEVACIZUMAB) 1.25MG INTRAVITREAL INJECTION OD (RIGHT EYE)on 01-20-2024 [facility] AVASTIN (BEVACIZUMAB) 1.25MG INTRAVITREAL INJECTION OS (LEFT EYE)on 01-20-2024 [facility] OCT MACULA CIRRUS OU (BOTH E YES)on 01-20-2024 [facility] Radiology Study observation (narrative) [facility] - Microbiology an d Antimicrobial susceptibilityon 01-12-2024 SARS-CoV-2 (COVID-19) RNA LYDIA+probe Ql (Unsp spec) Negative [facility] No Panel Informationon 01-11 FLU A Negative [facility] FLU B Negative [facility] Interpretation and review of laboratory results Normal [facility] CNOVon 11-29-2023 CNOV Office Visit (TIFFANY ) FANTASMA LEWIS ([id number]) 1940 F Date Time Provider Department 11/29/23 [...] 137;normal cbc, cmp, esr 5, crp 0.4; [facility] 09/01/22 bmd osteopenia/stable BONE MINERAL DENSITY PATIENT [...] weekly fosa (more content not included)... Normal [facility] AVASTIN (BEVACIZUMAB) 1.25MG INTRAVITREAL INJECTION OD (RIGHT EYE)on 11-11-2023 [facility] AVASTIN (BEVACIZUMAB) 1.25MG INTRAVITREAL INJECTION OS (LEFT EYE)on 11-11-2023 [facility] OCT MACULA CIRRUS OU (BOTH E YES)on 11-11-2023 [facility] Radiology Study observation (narrative) [facility] C. DIFFICILE PCRon C. DIFFICILE PCR Negative NEGATIVE [facility] URINE CULTURE, ROUTINEon Bacteria identified Cx Nom (U) Urine Culture, Routine [facility] Bacteria identified Cx Nom (U) Mixed urogenital nola [facility] Bacteria identified Cx Nom (U) Less than 10,000 colonies/mL [facility] Bacteria identified Cx Nom (U) [facility] Bacteria identified Cx Nom (U) [address], [place] [id number] [facility] Bacteria identified Cx Nom (U) Route Jumper: Kev Choi PhD, Phone: [phone] [facility] Laboratory - Chemistry and C hemistry - challengeon 10-27-2023 Bilirubin Ql (U) Negative [facility] Glucose [Mass/Vol] Negative [facility] Ketones Ql (U) Negative [facility] pH (U) 6.0 [pH] [facility] Specific gravity (U) [Rel density] 1.015 [...] STREPTOCOCCUS AGALACTIAE (GROUP B STREP) Not detected [facility] STREPTOCOCCUS PYOGENES (GROUP A STREP) 0.000 [facility] STREPTOCOCCUS PYOGENES (GROUP A STREP) Not detected [facility] Laboratory - Chemistry and C hemistry - challengeon 10-18-2023 Bilirubin Ql (U) Negative [facility] Glucose [Mass/Vol] Negative [facility] Ketones Ql (U) Negative [facility] pH (U) 6.0 [pH] [facility] Specific gravity (U) [Rel density] 1.020 [facility] Urobilinogen (U) [Mass/Vol] 0.8257919 mg/dL [facility] Laboratory - Hematology and Cell countson 10-18-2023 Hemoglobin Ql (U) Negative [facility] Laboratory - Urinalysison Nitrite Ql (U) Negative [facility] Protein Ql (U) Negative [facility] No Panel Informationon 10-17 Interpretation and review of laboratory results Abnormal [facility] LEUKOCYTES 1+ [facility] AVASTIN (BEVACIZUMAB) 1.25MG INTRAVITREAL INJECTION OD (RIGHT EYE)on 09-16-2023 [facility] AVASTIN (BEVACIZUMAB) 1.25MG INTRAVITREAL INJECTION OS (LEFT EYE)on 09-16-2023 [facility] OCT MACULA CIRRUS OU (BOTH E YES)on 09-16-2023 [facility] Radiology Study observation (narrative) [facility] AVASTIN (BEVACIZUMAB) 1.25MG INTRAVITREAL INJECTION OD (RIGHT EYE)on 08-05-2023 [facility] AVASTIN (BEVACIZUMAB) 1.25MG INTRAVITREAL INJECTION OS (LEFT EYE)on 08-05-2023 [facility] OCT MACULA CIRRUS OU (BOTH E YES)on 08-05-2023 [facility] Radiology Study observation (narrative) [facility] AVASTIN (BEVACIZUMAB) 1.25MG INTRAVITREAL INJECTION OD (RIGHT EYE)on 07-01-2023 [facility] AVASTIN (BEVACIZUMAB) 1.25MG INTRAVITREAL INJECTION OS (LEFT EYE)on 07-01-2023 [facility] OCT MACULA CIRRUS OU (BOTH E YES)on 07-01-2023 [facility] Radiology Study observation (narrative) [facility] AVASTIN (BEVACIZUMAB) 1.25MG INTRAVITREAL INJECTION OD (RIGHT EYE)on 06-03-2023 [facility] AVASTIN (BEVACIZUMAB) 1.25MG INTRAVITREAL INJECTION OS (LEFT EYE)on 06-03-2023 [facility] OCT MACULA CIRRUS OU (BOTH E YES)on 06-03-2023 [facility] Radiology Study observation (narrative) [facility] ECG 12 Leadon 12-08-2022 Normal sinus rhythm Normal EKG QTc 425 ms [facility] Work Phone: Alanine aminotransferase [En zymatic activity/volume] in Serum or PlasmaOrdered By: Prasanth Bai on 09-02-2022 ALT [Catalytic activity/Vol] 7 U/L 7-52 [facility] Albumin [Mass/volume] in Ser um or Plasma by Bromocresol green (BCG) dye binding methoOrdered By: Prasanth Bai on 09-02-2022 Albumin BCG dye [Mass/Vol] 4.2 g/dL 3.5-5.7 [facility] Alkaline phosphatase [Enzyma tic activity/volume] in Serum or PlasmaOrdered By: Prasanth Bai on 09-02-2022 ALP [Catalytic activity/Vol] 83 U/L 34-104 [facility] Aspartate aminotransferase [ Enzymatic activity/volume] in Serum or PlasmaOrdered By: Prasanth Bai on 09-02-2022 AST [Catalytic activity/Vol] 13 U/L 13-39 [facility] Bilirubin.total [Mass/volume ] in Serum or PlasmaOrdered By: Prasanth Bai on 09-02-2022 Bilirubin [Mass/Vol] 0.5 mg/dL 0.3-1.0 [facility] Calcium [Mass/volume] in Ser um or PlasmaOrdered By: Prasanth Bai on 09-02-2022 Calcium [Mass/Vol] 9.5 mg/dL 8.6-10.3 [facility] Carbon dioxide, total [Moles /volume] in Serum or PlasmaOrdered By: Prasanth Gomez on 09-02-2022 CO2 [Moles/Vol] 35.0 mmol/L High 21.0-31.0 [facility] Chloride [Moles/volume] in S yvonne or PlasmaOrdered By: Prasanth Bai on 09-02-2022 Chloride [Moles/Vol] 99 mmol/L 98-107 [facility] Creatinine [Mass/volume] in Serum or PlasmaOrdered By: Prasanth Bai on 09-02-2022 Creatinine [Mass/Vol] 0.83 mg/dL 0.60-1.20 [facility] Globulin Calc (S) [Mass/Vol] Ordered By: Prasanth Bai on 09-02-2022 Globulin (S) [Mass/Vol] 2.2 g/dL F [facility] Glucose [Mass/volume] in Ser um or PlasmaOrdered By: Prasanth Bai on 09-02-2022 Glucose [Mass/Vol] 77 mg/dL 70-100 [facility] Comment on above: ADA recommended refe rence rangeRandom Glucose Reference Range is dependent on time and content of last meal. Glucose of more than 200 mg/dL in a nonstressed, ambulatory subject supports the diagnosis of Diabetes Mellitus. No Panel InformationOrdered By: Prasanth Bai on 09-02-2022 Estimated GFR (CKD-EPI) > 60.0 mL/Min [facility] Creatinine Clearance (Chem 50.38 [facility] Potassium [Moles/volume] in Serum or PlasmaOrdered By: Prasanth Bai on 09-02-2022 Potassium [Moles/Vol] 4.2 mmol/L 3.5-5.1 [facility] Protein [Mass/volume] in Ser um or PlasmaOrdered By: Prasanth Bai on 09-02-2022 Protein [Mass/Vol] 6.4 g/dL 6.4-8.9 [facility] Serum or plasma albumin/glob ulin mass ratioOrdered By: Prasanth Bai on 09-02-2022 Albumin/Globulin [Mass ratio] 1.9 {ratio} [facility] Serum or plasma anion gap de terminationOrdered By: Prasanth Bai on 09-02-2022 Anion gap [Moles/Vol] 10.2 mmol/L 6.0-15.0 [facility] Sodium [Moles/volume] in Ser um or PlasmaOrdered By: edilberto Bai on 09-02-2022 Sodium [Moles/Vol] 140 mmol/L 136-145 [facility] Urea nitrogen [Mass/volume] in Serum or PlasmaOrdered By: edilberto Bai on 09-02-2022 Urea nitrogen [Mass/Vol] 20 mg/dL 7-25 [facility] CULTURE URINEon 12-05-2021 CULTURE URINE Culture Observations : GREATER THAN TWO ORGANISMS PRESENT. PLEASE RESUBMIT CLEAN CATCH MID-STREAM URINE IF CLINICALLY INDICATED. Normal [facility] Comment on above: Performed By: #### U RCX #### [facility] [address] [place] [address] Dr. Nataly Lara CBC AUTO DIFFon 12-03-2021 BASO # 0.1 103/ul Normal 0.0-0.1 [facility] Comment on above: Performed By: #### C BC #### [facility] [address] [place] [address] Dr. Nataly Lara Basophils/100 WBC (Bld) 0.5 % Normal 0.2-2.0 [facility] Comment on above: Performed By: #### C BC #### [facility] [address] [place] [address] Dr. Nataly Lara EO # 0.2 103/ul Normal 0.0-0.7 [facility] Comment on above: Performed By: #### C BC #### [facility] [address] [place] [address] Dr. aNtaly Lara Eosinophils/100 WBC (Bld) 1.9 % Normal 0.9-7.0 [facility] Comment on above: Performed By: #### C BC #### [facility] [address] [place] [address] Dr. Nataly Lara Erythrocyte distribution width (RBC) [Ratio] 12.5 % Normal 11.0-15.0 [facility] Comment on above: Performed By: #### C BC #### [facility] [address] [place] [address] Dr. Nataly Lara Hematocrit (Bld) [Volume fraction] 41.8 % Normal 36.0-48.0 [facility] Comment on above: Performed By: #### C BC #### [facility] [address] [place] [address] Dr. aNtaly Lara Hemoglobin (Bld) [Mass/Vol] 13.7 g/dL Normal 12.0-16.0 [facility] Comment on above: Performed By: #### C BC #### [facility] [address] [place] [address] Dr. Nataly Lara IG # 0.04 10e3/ul Critically high 0.00-0.03 [facility] Comment on above: Performed By: #### C BC #### [facility] [address] [place] [address] Dr. Nataly Lara IG % 0.3 % Normal 0.0-0.5 [facility] Comment on above: Performed By: #### C BC #### [facility] [address] [place] [address] Dr. Nataly Lara LYMPH # 1.4 103/ul Normal 1.2-3.8 [facility] Comment on above: Performed By: #### C BC #### [facility] [address] [place] [address] Dr. Nataly Lara Lymphocytes/100 WBC (Bld) 11.4 % Critically low 20.5-60.0 [facility] Comment on above: Performed By: #### C BC #### [facility] [address] [place] [address] Dr. Nataly Lara MANUAL DIFF REQ NO Normal [facility] Comment on above: Performed By: #### C BC #### [facility] [address] [place] [address] Dr. Nataly Lara MCH (RBC) [Entitic mass] 31.2 pg Normal 26.7-34.0 [facility] Comment on above: Performed By: #### C BC #### [facility] [address] [place] [address] Dr. Nataly Lara MCHC (RBC) [Mass/Vol] 32.8 g/dL Normal 29.9-35.2 [facility] Comment on above: Performed By: #### C BC #### [facility] [address] [place] [address] Dr. Nataly Lara MCV (RBC) [Entitic vol] 95.2 fL Normal 81.0-99.0 [facility] Comment on above: Performed By: #### C BC #### [facility] [address] [place] [address] Dr. Nataly Lara MONO # 0.8 103/ul Normal 0.3-0.8 [facility] Comment on above: Performed By: #### C BC #### [facility] [address] [place] [address] Dr. Nataly Lara Monocytes/100 WBC (Bld) 7.0 % Normal 1.7-12.0 [facility] Comment on above: Performed By: #### C BC #### [facility] [address] [place] [address] Dr. Nataly Lara NEUT # 9.5 103/ul Critically high 1.4-6.5 [facility] Comment on above: Performed By: #### C BC #### [facility] [address] [place] [address] Dr. Nataly Lara Neutrophils/100 WBC (Bld) 78.9 % Critically high 43.0-75.0 [facility] Comment on above: Performed By: #### C BC #### [facility] [address] [place] [address] Dr. Nataly Lara Platelet mean volume (Bld) [Entitic vol] 9.5 fL Normal 9.5-13.5 [facility] Comment on above: Performed By: #### C BC #### [facility] [address] [place] [address] Dr. Nataly Lara PLT 319 103/ul Normal 150-450 [facility] Comment on above: Performed By: #### C BC #### [facility] [address] [place] [address] Dr. Nataly Lara RBC 4.39 106/ul Normal 4.20-5.40 [facility] Comment on above: Performed By: #### C BC #### [facility] [address] [address] [address] Nataly Lara WBC 12.0 103/ul Critically high 4.0-11.0 [facility] Comment on above: Performed By: #### C BC #### [facility] [address] [place] [address] Dr. Nataly Lara ER URINE PROFILEon 2 Bilirubin Ql (U) Negative Normal NEGATIVE [facility] Comment on above: Performed By: #### U MICRO, ERUR #### [facility] [address] [place] [address] Dr. Nataly Lara Clarity (U) CLEAR Normal CLEAR [facility] Comment on above: Performed By: #### U MICRO, ERUR #### [facility] [address] [place] [address] Dr. Nataly Lara Color (U) LT. YELLOW Normal YELLOW [facility] Comment on above: Performed By: #### U MICRO, ERUR #### [facility] [address] [place] [address] Dr. Nataly Lara ERUAHD A micrscopic examination will be performed if indicated. Normal [facility] Comment on above: Performed By: #### U MICRO, ERUR #### [facility] [address] [place] [address] Dr. Nataly Lara Glucose Ql (U) Negative Normal NEGATIVE [facility] Comment on above: Performed By: #### U MICRO, ERUR #### [facility] [address] [address] [address] Nataly Lara Hemoglobin Ql (U) LARGE Abnormal NEGATIVE [facility] Comment on above: Performed By: #### U MICRO, ERUR #### [facility] [address] [place] [address] Dr. Nataly Lara Ketones Ql (U) Negative Normal NEGATIVE [facility] Comment on above: Performed By: #### U MICRO, ERUR #### [facility] [address] [place] [address] Dr. Nataly Lara LEUKOCYTES TRACE Abnormal NEGATIVE [facility] Comment on above: Performed By: #### U MICRO, ERUR #### [facility] [address] [address] [address] Nataly Lara Nitrite Ql (U) Negative Normal NEGATIVE [facility] Comment on above: Performed By: #### U MICRO, ERUR #### [facility] [address] [address] [address] Nataly Lara pH (U) 6.0 [pH] Normal 5-9 [facility] Comment on above: Performed By: #### U MICRO, ERUR #### [facility] [address] [address] [address] Nataly Lara SPEC GRAVITY <=1.005 Abnormal 1.005-<=1.02 5 [facility] Comment on above: Performed By: #### U MICRO, ERUR #### [facility] [address] [address] [address] Nataly Lara UA PROTEIN Negative Normal NEGATIVE/ TRACE [facility] Comment on above: Performed By: #### U MICRO, ERUR #### [facility] [address] [address] [address] Nataly Lara UR MICRO IND INDICATED Normal [facility] Comment on above: Performed By: #### U MICRO, ERUR #### [facility] [address] [address] [address] Nataly Lara Urobilinogen Qn (U) 0.2 {June'U}/dL Normal 0.2 - 1. 0 [facility] Comment on above: Performed By: #### U MICRO, ERUR #### [facility] [address] [address] [address] Nataly Lara PROF 14(COMP METB)on 022 Albumin [Mass/Vol] 3.8 g/dL Normal 3.4-5.0 [facility] Comment on above: Performed By: #### C MP ####[facility] [id number] [address]Dr. Nataly Lara Albumin/Globulin [Mass ratio] 1.1 {ratio} Normal [facility] Comment on above: Performed By: #### C MP ####[facility] [id number] [place] [address]Dr. Nataly Lara ALP [Catalytic activity/Vol] 94 U/L Normal 46-116 [facility] Comment on above: Performed By: #### C MP ####[facility] Nxxslhfxch0946 [place] [address]Dr. Nataly Lara ALT [Catalytic activity/Vol] 13 U/L Critically low 14-59 [facility] Comment on above: Performed By: #### C MP ####[facility] Iaclgbtacr2094 [place] [address]Dr. Nataly Lara Anion gap [Moles/Vol] 5.6 mmol/L Normal [facility] Comment on above: Performed By: #### C MP ####[facility] Felrauptmr[address] [place], [place] [address]Dr. Nataly Lara AST [Catalytic activity/Vol] 13 U/L Critically low 15-37 [facility] Comment on above: Performed By: #### C MP ####[facility] Rjyfryopjt[address] [place], [place] [address]Dr. Nataly Lara Bilirubin [Mass/Vol] 0.3 mg/dL Normal 0.2-1.0 [facility] Comment on above: Performed By: #### C MP ####[facility] Ixlxqufxmq[address] [place], [place] [address]Dr. Nataly Lara Calcium [Mass/Vol] 9.6 mg/dL Normal 8.5-10.1 [facility] Comment on above: Performed By: #### C MP ####[facility] Mdnniuuerg1782 [place] [address]Dr. Nataly Lara Chloride [Moles/Vol] 100 mmol/L Normal 98-107 [facility] Comment on above: Performed By: #### C MP ####[facility] Hozezctwgd3442 [place] [address]Dr. Nataly Lara CO2 [Moles/Vol] 34.4 mmol/L Critically high 21.0-32.0 [facility] Comment on above: Performed By: #### C MP ####[facility] Xzfbiiemao3097 [place] [id number]. Nataly Lara Creatinine [Mass/Vol] 0.91 mg/dL Normal 0.55-1.02 [facility] Comment on above: Performed By: #### C MP ####[facility] Mxkumuavxr3222 [place] [id number]. Nataly Lara EGFR-AF FILIPINO >60 Normal >=60 [facility] Comment on above: Performed By: #### C MP ####[facility] Qcztvbvcrq9882 [place] [id number]. Nataly Lara EGFR-NON AF FILIPINO 60 mL/min/1.73m2 Normal >=60 [facility] Comment on above: Performed By: #### C MP ####[facility] Tmviuuqhsv1543 [place] [address]Dr. Nataly Marco Globulin (S) [Mass/Vol] 3.5 g/dL Normal [facility] Comment on above: Performed By: #### C MP ####[facility] Zvpmtzhdra3372 [place] [address]Dr. Nataly Lara Glucose [Mass/Vol] 80 mg/dL Normal 74-106 [facility] Comment on above: Performed By: #### C MP ####[facility] Keuufjuecj1438 [place] [id number]. Nataly Lara Potassium [Moles/Vol] 3.0 mmol/L Critically low 3.5-5.1 [facility] Comment on above: Performed By: #### C MP ####[facility] Qgjtrwibrn1814 [place] [id number]. Nataly Lara Protein [Mass/Vol] 7.3 g/dL Normal 6.4-8.2 [facility] Comment on above: Performed By: #### C MP ####[facility] Lvhpmshijw6150 [place] [id number]. Nataly Lara Sodium [Moles/Vol] 137 mmol/L Normal 136-145 [facility] Comment on above: Performed By: #### C MP ####[facility] Goerzswbhw5399 [place], [place] [address]QqDr. Nataly Lara Urea nitrogen [Mass/Vol] 18.0 mg/dL Normal 7.0-18.0 [facility] Comment on above: Performed By: #### C MP ####[facility] Jhxswqdddu8195 [place] [id number]. Nataly Lara Urea nitrogen/Creatinine [Mass ratio] 19.8 mg/mg Normal [facility] Comment on above: Performed By: #### C MP ####[facility] Bdsfahzfln5669 [place] [id number]. Nataly Lara URINE MICROSCOPIC ONLYon BACTERIA TRACE Abnormal NONE SEEN [facility] Comment on above: Performed By: #### U MICRO, ERUR #### [facility] [address] [place] [address] [address] Nataly Lara Bacteria identified Cx Nom (U) INDICATED Normal [facility] Comment on above: Performed By: #### U MICRO, ERUR #### [facility] [address] [place] [address] [address] Nataly Lara CAST NONE SEEN Normal NONE SEEN [facility] Comment on above: Performed By: #### U MICRO, ERUR #### [facility] [address] [place] [address] [address] Nataly Lara Crystals LM Nom (Urine sed) NONE SEEN Normal NONE SEEN [facility] Comment on above: Performed By: #### U MICRO, ERUR #### [facility] [address] [place] [address] [address] Nataly Lara Epithelial cells LM Ql (Urine sed) MODERATE Abnormal NONE SEEN /RARE [facility] Comment on above: Performed By: #### U MICRO, ERUR #### [facility] [address] [place] [address] [address] Nataly Lara MUCOUS NONE SEEN Normal NONE SEEN [facility] Comment on above: Performed By: #### U MICRO, ERUR #### [facility] [address] [place] [address] [address] Nataly Lara RBC - Abnormal 0-2 [facility] Comment on above: Performed By: #### U MICRO, ERUR #### [facility] [address] [place], [place] [address] Dr. Nataly Lara WBC - Abnormal NONE SEEN [facility] Comment on above: Performed By: #### U MICRO, ERUR #### [facility] [address] [place], [place] [address] Dr. Nataly Lara US KIDNEYSon 12-03-2021 US [...] AUNDREA IVERSON Date: 2021-12-03 15:50 Normal [facility] XR KUB 1 VIEWon 11-14-2021 XR KUB 1 VIEW EXAMINATION: XR KUB 1 VIEW HISTORY: Kidney stone COMPARISON: N/04/01 CT exam FINDINGS: KIDNEY/URETER - RIGHT: Punctate nephrolithiasis KIDNEY/URETER - LEFT: Normal PELVIS: No visible ureteral calcifications. Any visible calcifications favor phleboliths. BOWEL: No abnormal dilation or deviation. 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 No abnormal gaseous collections. IMPRESSION: Right punctate nephrolithiasis Electronically authenticated by: AUNDREA IVERSON Date: 2021-11-14 13:29 Normal [facility] CBC AUTO DIFFon 11-09-2021 BASO # 0.0 103/ul Normal 0.0-0.1 [facility] Comment on above: Performed By: #### C BC ####[facility] Hzjvvqswlg2015 [place] [id number]. Nataly Lara Basophils/100 WBC (Bld) 0.4 % Normal 0.2-2.0 [facility] Comment on above: Performed By: #### C BC ####[facility] Lysdzxxwjc[address] [place], [place] [address]Dr. Nataly Lara EO # 0.4 103/ul Normal 0.0-0.7 [facility] Comment on above: Performed By: #### C BC ####[facility] Tkqmep[address] [place], [place] [address]Dr. Nataly Lara Eosinophils/100 WBC (Bld) 5.2 % Normal 0.9-7.0 [facility] Comment on above: Performed By: #### C BC ####[facility] Sohtzhkgjb[address] [place], [place] [address]Dr. Nataly Lara Erythrocyte distribution width (RBC) [Ratio] 12.8 % Normal 11.0-15.0 [facility] Comment on above: Performed By: #### C BC ####[facility] Nzlbzkanfe19[address] [place], [place] [address]Dr. Nataly Lara Hematocrit (Bld) [Volume fraction] 41.5 % Normal 36.0-48.0 [facility] Comment on above: Performed By: #### C BC ####[facility] Ybxkuizrco[address] [place], [place] [address]Dr. Nataly Lara Hemoglobin (Bld) [Mass/Vol] 13.2 g/dL Normal 12.0-16.0 [facility] Comment on above: Performed By: #### C BC ####[facility] Flujhnzswx[address] [place], [place] [address]Dr. Nataly Lara IG # 0.02 10e3/ul Normal 0.00-0.03 [facility] Comment on above: Performed By: #### C BC ####[facility] Dhgwxjcqtn57[address] [place], [place] [address]Dr. Nataly Lara IG % 0.2 % Normal 0.0-0.5 [facility] Comment on above: Performed By: #### C BC ####[facility] Zyfpvzkmfw2449 [place] [id number]. Nataly Lara LYMPH # 1.5 103/ul Normal 1.2-3.8 [facility] Comment on above: Performed By: #### C BC ####[facility] Vdxwdlamhh7645 [place] [id number]. Nataly Lara Lymphocytes/100 WBC (Bld) 18.3 % Critically low 20.5-60.0 [facility] Comment on above: Performed By: #### C BC ####[facility] Oyukcojfmt7533 [place] [id number]. Nataly Lara MANUAL DIFF REQ NO Normal [facility] Comment on above: Performed By: #### C BC ####[facility] Bkoyumbzee5792 [place] [id number]. Nataly Lara MCH (RBC) [Entitic mass] 31.1 pg Normal 26.7-34.0 [facility] Comment on above: Performed By: #### C BC ####[facility] Cxrpqqshvn3723 [place] [id number]. Nataly Lara MCHC (RBC) [Mass/Vol] 31.8 g/dL Normal 29.9-35.2 [facility] Comment on above: Performed By: #### C BC ####[facility] Acgwglyxdy2775 [place] [id number] Lara MCV (RBC) [Entitic vol] 97.9 fL Normal 81.0-99.0 [facility] Comment on above: Performed By: #### C BC ####[facility] Qdpshmmyww5446 [place] [address]DrConnie Lara MONO # 0.6 103/ul Normal 0.3-0.8 [facility] Comment on above: Performed By: #### C BC ####[facility] Lkgffsqvta5315 [place] [address]Dr. Nataly Lara Monocytes/100 WBC (Bld) 6.9 % Normal 1.7-12.0 [facility] Comment on above: Performed By: #### C BC ####[facility] Mugiodyrni3614 [place] [address]Dr. Nataly Lara NEUT # 5.7 103/ul Normal 1.4-6.5 [facility] Comment on above: Performed By: #### C BC ####[facility] Mtpmkexuur1967 [place] [address]Dr. Nataly Lara Neutrophils/100 WBC (Bld) 69.0 % Normal 43.0-75.0 [facility] Comment on above: Performed By: #### C BC ####[facility] Zfsebcepgu9792 [place] [address]Dr. Nataly Lara Platelet mean volume (Bld) [Entitic vol] 9.5 fL Normal 9.5-13.5 [facility] Comment on above: Performed By: #### C BC ####[facility] Opmfzyuqlt0004 [place] [address]Dr. Nataly Lara PLT 267 103/ul Normal 150-450 [facility] Comment on above: Performed By: #### C BC ####[facility] Xuqikvwvlp[address] [place], [place] [address]Dr. Nataly Lara RBC 4.24 106/ul Normal 4.20-5.40 [facility] Comment on above: Performed By: #### C BC ####[facility] Cchnwpolyn[address] [place], [place] [address]Dr. Nataly Lara WBC 8.2 103/ul Normal 4.0-11.0 [facility] Comment on above: Performed By: #### C BC ####[facility] Mifztjjiho[address] [place], [place] [address]Dr. Nataly Lara CT CHEST W CONon 11-09-2021 [...] by: TASHI ESCOBAR Date: 2021-11-09 15:58 Normal [facility] CT CSPINE WO CONon 2 CT [facility] WO CON EXAMINATION: CT CSPI NE WO [...] TASHI ESCOBAR Date: 2021-11-09 15:43 Normal [facility] CT FACIAL BONES WO CONon CT [...] ISIAH ALVARES Date: 2021-11-09 16:14 Normal [facility] CT HEAD WO CONon 11-09-2021 CT [...] SELWYN COATES Date: 2021-11-09 15:42 Normal [facility] PROF CHEM 8 (BAS METB)on Anion gap [Moles/Vol] 10.6 mmol/L Normal e [facility] Comment on above: Performed By: #### B MP ####[facility] Ocvybdzgls8768 [address] StreetConnie Lara Calcium [Mass/Vol] 9.5 mg/dL Normal 8.5-10.1 [facility] Comment on above: Performed By: #### B MP ####[facility] Ybkqfndkdn7126 [place] [address]Dr. Nataly Lara Chloride [Moles/Vol] 102 mmol/L Normal 98-107 [facility] Comment on above: Performed By: #### B MP ####[facility] Tneyqiqiwr9466 [place] [address]Dr. Nataly Lara CO2 [Moles/Vol] 33.4 mmol/L Critically high 21.0-32.0 [facility] Comment on above: Performed By: #### B MP ####[facility] Udjeslddht[address] [place], [place] [address]Dr. Nataly Lara Creatinine [Mass/Vol] 0.87 mg/dL Normal 0.55-1.02 [facility] Comment on above: Performed By: #### B MP ####[facility] Kpfsdiyjon65[address] [place], [place] [address]Dr. Machelletamanna Marco EGFR-AF FILIPINO >60 Normal >=60 [facility] Comment on above: Performed By: #### B MP ####[facility] Gkwptlopnt[address] [place], [place] [address]Dr. Nataly Lara EGFR-NON AF FILIPINO >60 Normal >=60 [facility] Comment on above: Performed By: #### B MP ####[facility] Qufuneyoyh60[address] [place], [place] [address]Dr. Nataly Lara Glucose [Mass/Vol] 87 mg/dL Normal 74-106 [facility] Comment on above: Performed By: #### B MP ####[facility] Wdigqwhnpc05[address] [place], [place] [address]Dr. Nataly Lara Potassium [Moles/Vol] 4.0 mmol/L Normal 3.5-5.1 [facility] Comment on above: Performed By: #### B MP ####[facility] Earioxbpvo37[address] [place], [place] [address]Dr. Nataly Lara Sodium [Moles/Vol] 142 mmol/L Normal 136-145 [facility] Comment on above: Performed By: #### B MP ####[facility] Irxblnxbbl4570 [place], [place] [address]Rp. Nataly Lara Urea nitrogen [Mass/Vol] 16.0 mg/dL Normal 7.0-18.0 [facility] Comment on above: Performed By: #### B MP ####[facility] Nnhwkwzcmk0207 [place], [place] [address]Jt. Nataly Lara Urea nitrogen/Creatinine [Mass ratio] 18.4 mg/mg Normal [facility] Comment on above: Performed By: #### B MP ####[facility] Lqkmzujxzh5784 [place], [place] [address]Fc. 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 Head Pumper: CAPRI Transcribe Date/Time: Aug 13 2021 3:20P [...] periprosthetic lucency. No large joint effusion. 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 Head Pumper: CAPRI Transcribe Date/Time: Aug 13 2021 3:20P Dictated by : MIRYAM MA MD This examination was interpreted and the report reviewed and electronically signed by: MIRYAM MA MD on Aug 13 2021 3:22PM [facility] Radiology Study observation (narrative) [facility] XR Knee - bilateral 3 ViewsO rdered By: [facility] Provider on 08-13-2021 [facility] [place] XR Knee - bilateral 3 Viewso n 04-19-2020 IMPRESSION: Bilateral total knee arthroplasties without complication. Head Pumper: CAPRI Transcribe Date/Time: Apr 19 2020 10:33A Dictated by : ULICES WADSWORTH MD This examination was interpreted and the report reviewed and electronically signed by: ULICES WADSWORTH MD on Apr 19 2020 10:35AM [facility] DIVISION OF RADIOLOGY * * *Final [...] either knee. DIVISION OF RADIOLOGY Provider, Blessing Amin - 04/19/2020 * * *Final Report* * [...] IMPRESSION: Bilateral total knee arthroplasties without complication. Head Pumper: PSCB Transcribe Date/Time: Apr 19 2020 10:33A Dictated by : ULICES WADSWORTH MD This examination was interpreted and the report reviewed and electronically signed by: ULICES WADSWORTH MD on Apr 19 2020 10:35AM EST [facility] [place] Radiology Study observation (narrative) [facility] XR Knee - bilateral 3 ViewsO rdered By: Blessing Provider on 04-19-2020 [facility] [place] No Panel Information [facility] [place] Vital Signs Date Time Vital Sign Value Performing Clinician Facility 09-29-2024 10:50-0400 Body height 154.94 cm Roney Leroy DO Work Phone: [facility] 09-29-2024 10:50-0400 Body mass index (BMI) [Ratio] 29 kg/m2 Roney Leroy DO Work Phone: [facility] 09-29-2024 10:50-0400 Body weight 69.85 kg Roney Leroy DO Work Phone: [facility] 09-29-2024 10:50-0400 Diastolic blood pressure 78 mm[Hg] Roney Leroy DO Work Phone: [facility] 09-29-2024 10:50-0400 Heart rate 66 /min Roney Rad DO Work Phone: [facility] 09-29-2024 10:50-0400 Systolic blood pressure 124 mm[Hg] Roney Leroy DO Work Phone: [facility] 09-11-2024 13:37-0400 Body height 160.02 cm Roney Leroy DO Work Phone: [facility] 09-11-2024 13:37-0400 Body mass index (BMI) [Ratio] 27.6 kg/m2 Roney Leroy DO Work Phone: [facility] 09-11-2024 13:37-0400 Body temperature 97.8 [degF] Roney Leroy DO Work Phone: [facility] 09-11-2024 13:37-0400 Body weight 70.76 kg Roney Leroy DO Work Phone: [facility] 09-11-2024 13:37-0400 Diastolic blood pressure 77 mm[Hg] Roney Rad DO Work Phone: [facility] 09-11-2024 13:37-0400 Heart rate 103 /min Roney Leroy DO Work Phone: [facility] 09-11-2024 13:37-0400 Respiratory rate 16 /min Roney Leroy DO Work Phone: [facility] 09-11-2024 13:37-0400 SaO2% (BldA) [Mass fraction] 98 % Roney Rad DO Work Phone: [facility] 09-11-2024 13:37-0400 Systolic blood pressure 132 mm[Hg] Roney Leroy DO Work Phone: [facility] 09-06-2024 16:19-0400 Body temperature 97.59 [degF] Moses Richards DO Work Phone: [facility] 09-06-2024 16:19-0400 Diastolic blood pressure 64 mm[Hg] Moses Richards DO Work Phone: [facility] 09-06-2024 16:19-0400 Heart rate 94 /min Moses Richards DO Work Phone: [facility] 09-06-2024 16:19-0400 SaO2% (BldA) [Mass fraction] 98 % Moses Richards DO Work Phone: [facility] 09-06-2024 16:19-0400 Systolic blood pressure 128 mm[Hg] Moses Richards DO Work Phone: [facility] 08-24-2024 10:51-0400 Body height 160 cm Gunner ItghazalZusesteve DO Work Phone: [facility] 08-24-2024 10:51-0400 Body mass index (BMI) [Ratio] 27.63 kg/m2 Gunner Itzkowitz DO Work Phone: [facility] 08-24-2024 10:51-0400 Body weight 70.76 kg Gunner ItzkoBand Metricssteve DO Work Phone: [facility] 08-14-2024 09:45-0400 Body height 160.02 cm Roney Leroy DO Work Phone: [facility] 08-14-2024 09:45-0400 Body mass index (BMI) [Ratio] 27.4 kg/m2 Roney Leroy DO Work Phone: [facility] 08-14-2024 09:45-0400 Body weight 70.3 kg Roney Leroy DO Work Phone: [facility] 08-14-2024 09:45-0400 Diastolic blood pressure 74 mm[Hg] Roney Leroy DO Work Phone: [facility] 08-14-2024 09:45-0400 Heart rate 94 /min Roney Leroy DO Work Phone: [facility] 08-14-2024 09:45-0400 Systolic blood pressure 138 mm[Hg] Roney Leroy DO Work Phone: [facility] 05-11-2024 11:00-0400 Body height 160.02 cm [facility] 05-11-2024 11:00-0400 Body mass index (BMI) [Ratio] 27.2 kg/m2 [facility] 05-11-2024 11:00-0400 Body weight 69.7 kg [facility] 05-11-2024 11:00-0400 Diastolic blood pressure 74 mm[Hg] [facility] 05-11-2024 11:00-0400 Systolic blood pressure 135 mm[Hg] [facility] 03-15-2024 13:16-0500 Body height 160 cm Carolyne Eliud HEALTH CARE SPECIALIST Work Phone: [facility] 03-15-2024 13:16-0500 Body mass index (BMI) [Ratio] 30.11 kg/m2 Carolyne Cheloy HEALTH CARE SPECIALIST Work Phone: [facility] 03-15-2024 13:16-0500 Body temperature 98.01 [degF] Carolyne Eliud HEALTH CARE SPECIALIST Work Phone: [facility] 03-15-2024 13:16-0500 Body weight 77.11 kg Carolyne Cheloy HEALTH CARE SPECIALIST Work Phone: [facility] 03-15-2024 13:16-0500 Diastolic blood pressure 72 mm[Hg] Carolyne Cheloy HEALTH CARE SPECIALIST Work Phone: [facility] 03-15-2024 13:16-0500 Heart rate 90 /min Carolyne Cheloy HEALTH CARE SPECIALIST Work Phone: [facility] 03-15-2024 13:16-0500 SaO2% (BldA) [Mass fraction] 99 % Carolyne Cheloy HEALTH CARE SPECIALIST Work Phone: [facility] 03-15-2024 13:16-0500 Systolic blood pressure 126 mm[Hg] Carolyne Cheloy HEALTH CARE SPECIALIST Work Phone: [facility] 03-15-2024 13:04-0500 Body height 160 cm Mounika Scranton DO Work Phone: [facility] 03-15-2024 13:04-0500 Body mass index (BMI) [Ratio] 30.11 kg/m2 Mounika Scranton DO Work Phone: [facility] 03-15-2024 13:04-0500 Body temperature 98.01 [degF] Mounika Scranton DO Work Phone: [facility] 03-15-2024 13:04-0500 Body weight 77.11 kg Mounika Scranton DO Work Phone: [facility] 03-15-2024 13:04-0500 Diastolic blood pressure 72 mm[Hg] Mounika Scranton DO Work Phone: [facility] 03-15-2024 13:04-0500 Heart rate 90 /min Mounika Scranton DO Work Phone: [facility] 03-15-2024 13:04-0500 SaO2% (BldA) [Mass fraction] 99 % Mounika Scranton DO Work Phone: [facility] 03-15-2024 13:04-0500 Systolic blood pressure 126 mm[Hg] Mounika Scranton DO Work Phone: [facility] 03-08-2024 12:55-0500 Body height 160 cm Mounika Scranton DO Work Phone: [facility] 03-08-2024 12:55-0500 Body mass index (BMI) [Ratio] 29.05 kg/m2 Mounika Scranton DO Work Phone: [facility] 03-08-2024 12:55-0500 Body temperature 96.01 [degF] Mounika Scranton DO Work Phone: [facility] 03-08-2024 12:55-0500 Body weight 74.39 kg Mounika Scranton DO Work Phone: [facility] 03-08-2024 12:55-0500 Diastolic blood pressure 72 mm[Hg] Mounika Scranton DO Work Phone: [facility] 03-08-2024 12:55-0500 Heart rate 71 /min Mounika Scranton DO Work Phone: [facility] 03-08-2024 12:55-0500 SaO2% (BldA) [Mass fraction] 98 % Mounika Scranton DO Work Phone: [facility] 03-08-2024 12:55-0500 Systolic blood pressure 118 mm[Hg] Mounika Scranton DO Work Phone: [facility] 01-28-2024 09:37-0500 Body height 160 cm Mounika Scranton DO Work Phone: [facility] 01-28-2024 09:37-0500 Body mass index (BMI) [Ratio] 28.09 kg/m2 Mounika Scranton DO Work Phone: [facility] 01-28-2024 09:37-0500 Body temperature 99.39 [degF] Mounika Scranton DO Work Phone: [facility] 01-28-2024 09:37-0500 Body weight 71.94 kg Mounika Scranton DO Work Phone: [facility] 01-28-2024 09:37-0500 Diastolic blood pressure 78 mm[Hg] Mounika Scranton DO Work Phone: [facility] 01-28-2024 09:37-0500 Heart rate 102 /min Mounika Scranton DO Work Phone: [facility] 01-28-2024 09:37-0500 SaO2% (BldA) [Mass fraction] 97 % Mounika Scranton DO Work Phone: [facility] 01-28-2024 09:37-0500 Systolic blood pressure 112 mm[Hg] Mounika Scranton DO Work Phone: [facility] 01-26-2024 15:17-0500 Body mass index (BMI) [Ratio] 28.34 kg/m2 Summer Workman PA Work Phone: [facility] 01-26-2024 15:17-0500 Body temperature 96.69 [degF] Summer Workman PA Work Phone: [facility] 01-26-2024 15:17-0500 Body weight 72.58 kg Summer Workman PA Work Phone: [facility] 01-26-2024 15:17-0500 Diastolic blood pressure 86 mm[Hg] Summer Workman PA Work Phone: [facility] 01-26-2024 15:17-0500 Heart rate 97 /min Summer Workman PA Work Phone: [facility] 01-26-2024 15:17-0500 SaO2% (BldA) [Mass fraction] 99 % Summer Workman PA Work Phone: [facility] 01-26-2024 15:17-0500 Systolic blood pressure 138 mm[Hg] Summer Workman PA Work Phone: [facility] 01-12-2024 12:51-0500 Body mass index (BMI) [Ratio] 28.63 kg/m2 Jah Sutherland HEALTH CARE SPECIALIST Work Phone: [facility] 01-12-2024 12:51-0500 Body temperature 98.6 [degF] Jah Sutherland HEALTH CARE SPECIALIST Work Phone: [facility] 01-12-2024 12:51-0500 Body weight 73.3 kg Jah Sutherland HEALTH CARE SPECIALIST Work Phone: [facility] 01-12-2024 12:51-0500 Diastolic blood pressure 68 mm[Hg] Jah Sutherland HEALTH CARE SPECIALIST Work Phone: [facility] 01-12-2024 12:51-0500 Heart rate 88 /min Jah Sutherland HEALTH CARE SPECIALIST Work Phone: [facility] 01-12-2024 12:51-0500 SaO2% (BldA) [Mass fraction] 98 % Jah Sutherland HEALTH CARE SPECIALIST Work Phone: [facility] 01-12-2024 12:51-0500 Systolic blood pressure 132 mm[Hg] Jah Sutherland HEALTH CARE SPECIALIST Work Phone: [facility] 12-08-2023 13:31-0400 Body height 160.02 cm [facility] 12-08-2023 13:31-0400 Body mass index (BMI) [Ratio] 28.5 kg/m2 [facility] 12-08-2023 13:31-0400 Body weight 72.99 kg [facility] 11-29-2023 11:50-0400 Body mass index (BMI) [Ratio] 27.61 kg/m2 Chalo Menjivar MD Work Phone: [facility] 11-29-2023 11:50-0400 Body weight 70.7 kg Chalo Menjivar MD Work Phone: [facility] 11-29-2023 11:50-0400 Diastolic blood pressure 82 mm[Hg] Chalo Menjivar MD Work Phone: [facility] 11-29-2023 11:50-0400 Heart rate 96 /min Chalo Menjivar MD Work Phone: [facility] 11-29-2023 11:50-0400 Systolic blood pressure 131 mm[Hg] Chalo Menjivar MD Work Phone: [facility] 11-02-2023 10:42-0400 Body height 160 cm Mounika Scranton DO Work Phone: [facility] 11-02-2023 10:42-0400 Body mass index (BMI) [Ratio] 28.34 kg/m2 Mounika Scranton DO Work Phone: [facility] 11-02-2023 10:42-0400 Body temperature 98.01 [degF] Mounika Scranton DO Work Phone: [facility] 11-02-2023 10:42-0400 Body weight 72.58 kg Mounika Scranton DO Work Phone: [facility] 11-02-2023 10:42-0400 Diastolic blood pressure 76 mm[Hg] Mounika Scranton DO Work Phone: [facility] 11-02-2023 10:42-0400 Heart rate 85 /min Mounika Scranton DO Work Phone: [facility] 11-02-2023 10:42-0400 SaO2% (BldA) [Mass fraction] 98 % Mounika Scranton DO Work Phone: [facility] 11-02-2023 10:42-0400 Systolic blood pressure 128 mm[Hg] Mounika Scranton DO Work Phone: [facility] 10-27-2023 16:00-0400 Body mass index (BMI) [Ratio] 27.81 kg/m2 [employer] PA Work Phone: [facility] 10-27-2023 16:00-0400 Body temperature 95.9 [degF] [employer] Workman PA Work Phone: [facility] 10-27-2023 16:00-0400 Body weight 71.22 kg [employer] PA Work Phone: [facility] 10-27-2023 16:00-0400 Diastolic blood pressure 76 mm[Hg] [employer] PA Work Phone: [facility] 10-27-2023 16:00-0400 Heart rate 102 /min [employer] PA Work Phone: [facility] 10-27-2023 16:00-0400 SaO2% (BldA) [Mass fraction] 98 % [employer] PA Work Phone: [facility] 10-27-2023 16:00-0400 Systolic blood pressure 138 mm[Hg] [employer] PA Work Phone: [facility] 10-18-2023 10:53-0400 Body mass index (BMI) [Ratio] 28.34 kg/m2 Jah Sutherland HEALTH CARE SPECIALIST Work Phone: [facility] 10-18-2023 10:53-0400 Body temperature 97.81 [degF] Jah Sutherland HEALTH CARE SPECIALIST Work Phone: [facility] 10-18-2023 10:53-0400 Body weight 72.58 kg Jah Sutherland HEALTH CARE SPECIALIST Work Phone: [facility] 10-18-2023 10:53-0400 Diastolic blood pressure 78 mm[Hg] Jah Sutherland HEALTH CARE SPECIALIST Work Phone: [facility] 10-18-2023 10:53-0400 Heart rate 100 /min Jah Sutherland HEALTH CARE SPECIALIST Work Phone: [facility] 10-18-2023 10:53-0400 Respiratory rate 18 /min Jah Sutherland HEALTH CARE SPECIALIST Work Phone: [facility] 10-18-2023 10:53-0400 SaO2% (BldA) [Mass fraction] 98 % Jah Sutherland HEALTH CARE SPECIALIST Work Phone: [facility] 10-18-2023 10:53-0400 Systolic blood pressure 132 mm[Hg] Jah Sutherland HEALTH CARE SPECIALIST Work Phone: [facility] 09-29-2023 10:43-0400 Body height 160 cm Sade Olivas PA Work Phone: [facility] 09-29-2023 10:43-0400 Body mass index (BMI) [Ratio] 29.05 kg/m2 Sade Olivas PA Work Phone: [facility] 09-29-2023 10:43-0400 Body temperature 97.2 [degF] Sade Olivas PA Work Phone: [facility] 09-29-2023 10:43-0400 Body weight 74.39 kg Sade Olivas PA Work Phone: [facility] 09-29-2023 10:43-0400 Diastolic blood pressure 72 mm[Hg] Sade Olivas PA Work Phone: [facility] 09-29-2023 10:43-0400 Heart rate 76 /min Sade Olivas PA Work Phone: [facility] 09-29-2023 10:43-0400 SaO2% (BldA) [Mass fraction] 95 % Sade Olivas PA Work Phone: [facility] 09-29-2023 10:43-0400 Systolic blood pressure 138 mm[Hg] Sade Olivas PA Work Phone: [facility] 09-29-2023 10:38-0400 Body height 160 cm Mounika Scranton DO Work Phone: [facility] 09-29-2023 10:38-0400 Body mass index (BMI) [Ratio] 29.05 kg/m2 Mounika Scranton DO Work Phone: [facility] 09-29-2023 10:38-0400 Body temperature 97.2 [degF] Mounika Scranton DO Work Phone: [facility] 09-29-2023 10:38-0400 Body weight 74.39 kg Monuika Scranton DO Work Phone: [facility] 09-29-2023 10:38-0400 Diastolic blood pressure 72 mm[Hg] Mounika Scranton DO Work Phone: [facility] 09-29-2023 10:38-0400 Heart rate 76 /min Mounika Scranton DO Work Phone: [facility] 09-29-2023 10:38-0400 SaO2% (BldA) [Mass fraction] 95 % Mounika Scranton DO Work Phone: [facility] 09-29-2023 10:38-0400 Systolic blood pressure 138 mm[Hg] Mounika Scranton DO Work Phone: [facility] 09-08-2023 11:04-0400 Body temperature 98 [degF] DO Roney Rad Work Phone: [facility] 09-08-2023 11:04-0400 Diastolic blood pressure 78 mm[Hg] DO Roney Rad Work Phone: 9(278)268-727660 [place] [address] 09-08-2023 11:04-0400 Heart rate 85 /min DO Roney Rad Work Phone: 0(543)214-504760 [place] [address] 09-08-2023 11:04-0400 Respiratory rate 18 /min DO Roney Rad Work Phone: 9(329)527-901860 [place] [address] 09-08-2023 11:04-0400 SaO2% (BldA) [Mass fraction] 97 % DO Roney Rad Work Phone: [facility] 09-08-2023 11:04-0400 Systolic blood pressure 139 mm[Hg] DO Roney Rad Work Phone: 1(135)939-156660 [place] [address] 09-08-2023 11:01-0400 Body height 160.02 cm DO Roney Rad Work Phone: [facility] 09-08-2023 11:01-0400 Body mass index (BMI) [Ratio] 29 kg/m2 DO Roney Rad Work Phone: [facility] 09-08-2023 11:01-0400 Body weight 74.38 kg DO Roney Leroy Work Phone: [facility] 12-08-2022 11:13-0400 Diastolic blood pressure 78 mm[Hg] Afshin Rocha MD Work Phone: [facility] 12-08-2022 11:13-0400 Systolic blood pressure 132 mm[Hg] Afshin Rocha MD Work Phone: [facility] 12-08-2022 10:43-0400 Body height 160 cm Afshin Rocha MD Work Phone: [facility] 12-08-2022 10:43-0400 Body mass index (BMI) [Ratio] 29.41 kg/m2 Afshin Rocha MD Work Phone: [facility] 12-08-2022 10:43-0400 Body weight 75.3 kg Afshin Rocha MD Work Phone: [facility] 12-08-2022 10:43-0400 Heart rate 87 /min Afshin Rocha MD Work Phone: [facility] 09-02-2022 10:00-0400 Body temperature 98 [degF] DO Roney Leroy Work Phone: [facility] 09-02-2022 10:00-0400 Diastolic blood pressure 72 mm[Hg] DO Roney Leroy Work Phone: [facility] 09-02-2022 10:00-0400 Heart rate 85 /min DO Roney Leroy Work Phone: [facility] 09-02-2022 10:00-0400 Respiratory rate 20 /min DO Roney Leroy Work Phone: [facility] 09-02-2022 10:00-0400 SaO2% (BldA) [Mass fraction] 95 % DO Roney Leroy Work Phone: [facility] 09-02-2022 10:00-0400 Systolic blood pressure 136 mm[Hg] DO Roney Leroy Work Phone: [facility] 05-19-2022 11:45-0400 Body height 162.56 cm Meir Ureñay Other [facility] [employer] Other 05-19-2022 11:45-0400 Body mass index (BMI) [Ratio] 27.12 kg/m2 Meir Ditty Other [facility] [employer] Other 05-19-2022 11:45-0400 Body weight 71.67 kg Meir Ditty Other [facility] [employer] Other 11-26-2021 14:45-0400 Body height 162.56 cm Meir Ditty Other [employer] Other 11-26-2021 14:45-0400 Body mass index (BMI) [Ratio] 27.46 kg/m2 Meir Ditty Other [facility] [employer] Other 11-26-2021 14:45-0400 Body weight 72.58 kg Meir Ditty Other [facility] [employer] Other 11-18-2021 10:34-0400 Blood Pressure Location [facility] [employer] [facility] 11-18-2021 10:34-0400 Diastolic blood pressure 71 mm[Hg] [facility]e [employer] [facility] 11-18-2021 10:34-0400 Heart rate 72 /min [facility]e [employer] [facility] 11-18-2021 10:34-0400 Systolic blood pressure 145 mm[Hg] [facility]e [employer] [facility] 12-05-2020 15:00-0400 Body height 162.56 cm Meir Morrissey Other [employer] Other 12-05-2020 15:00-0400 Body mass index (BMI) [Ratio] 27.63 kg/m2 Meir Morrissey Other [employer] Other 12-05-2020 15:00-0400 Body weight 73.03 kg Meir Morrissey Other [employer] Other 12-08-2018 14:36-0400 Body Temperature 98.2 [degF] [facility] 12-08-2018 14:36-0400 Body weight 78.8 kg [facility] 12-08-2018 14:36-0400 BP Diastolic 76 mm[Hg] [facility] 12-08-2018 14:36-0400 BP Systolic 146 mm[Hg] [facility] 12-08-2018 14:36-0400 Pulse (Heart Rate) 78 /min [facility] 12-08-2018 14:36-0400 Pulse Oximetry 98 % [facility] 12-08-2018 14:36-0400 Respiratory Rate 20 /min [facility] 10-14-2018 14:07-0400 Height 157.48 cm [facility] Encounters Encounter Date Encounter Type Care Provider Facility Start: 10-09-2024 ambulatory [facility] Start: 10-07-2024 Emergency department patient visit [facility] Start: 10-05-2024 End: 10-05-2024 Patient encounter procedure Brando Shields MD Work Phone: Ophthalmology Comment on above: 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); Dry eye syndrome of both eyes; Pseudophakia of both eyes; History of YAG laser capsulotomy of lens, right; Posterior vitreous detachment of both eyes Start: 10-05-2024 End: 10-05-2024 ambulatory BRANDO A MAMMO Facility:[facility] Start: 09-29-2024 End: 09-29-2024 ambulatory Roney Leroy DO Work Phone: [facility] Work Phone: Start: 09-29-2024 End: 09-29-2024 Patient encounter procedure Sade Gauthier VICE PRESIDENT OF HUMAN RESOURCES -[facility] Work Phone: Start: 09-20-2024 End: 09-20-2024 Telephone encounter Anabelle Keita AUD Work Phone: [facility] Start: 09-13-2024 End: 09-13-2024 ambulatory DAVID TOMLIN Facility:[facility] Start: 09-11-2024 Registered Recurring Elsa Kendrick [facility] Work Phone: Start: 09-11-2024 End: 09-11-2024 ambulatory Roney Leroy DO Work Phone: [facility] Work Phone: Start: 09-11-2024 End: 09-11-2024 Patient encounter procedure Esme FANG -[facility] Work Phone: Start: 09-07-2024 End: 09-07-2024 Patient encounter procedure Jessica Garcia MD Work Phone: Ophthalmology Comment on above: PCO (posterior capsu lar opacification), right (Primary Dx); Pseudophakia; 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); History of Descemet membrane endothelial keratoplasty (DMEK) Start: 09-07-2024 End: 09-07-2024 ambulatory BRANDO A MAMMO Facility:[facility] Start: 09-06-2024 End: 09-06-2024 Office outpatient visit 25 minutes Moses Richards DO Work Phone: [facility] Comment on above: Foreign body of righ t ear, initial encounter Start: 09-06-2024 End: 09-06-2024 ambulatory MOSES RICHARDS Not Available Start: 09-04-2024 End: 09-04-2024 Nursing evaluation of patient and report Nurse Lucrecia [facility] Nalini Work Phone: Rheumatology Comment on above: Senile osteoporosis (Primary Dx); Personal history of other drug therapy Start: 09-04-2024 End: 09-04-2024 ambulatory CHALO MENJIVAR Facility:[facility] Start: 08-28-2024 End: 08-28-2024 Telephone encounter Chalo Menjivar MD Work Phone: Rheumatology Comment on above: Orders Start: 08-24-2024 End: 08-24-2024 ambulatory GUNNER HIDALGO Not Available Start: 08-24-2024 End: 08-24-2024 Office outpatient visit 25 minutes Gunner Hidalgo DO Work Phone: [facility] Comment on above: Personal history of malignant [...] Start: 08-16-2024 End: 08-16-2024 ambulatory RONEY LEROY Facility:[facility] Start: 08-14-2024 End: 08-14-2024 ambulatory Roney Leroy DO Work Phone: [facility] Work Phone: Start: 08-14-2024 End: 08-14-2024 Patient encounter procedure Sade Gauthier APRN -[facility] Work Phone: Start: 08-10-2024 End: 08-10-2024 Telephone encounter Chalo Menjivar MD Work Phone: Rheumatology Comment on above: Patient Question; Ap pointment Start: 06-29-2024 End: 06-29-2024 ambulatory BRANDO SHIELDS Facility:[facility] Start: 06-26-2024 Registered Recurring Elsa Kendrick [facility] Work Phone: Start: 05-11-2024 End: 05-11-2024 ambulatory [facility] Work Phone: Start: 05-11-2024 End: 05-11-2024 Patient encounter procedure [facility] Work Phone: Start: 04-18-2024 End: 04-18-2024 ambulatory Silvia Bianchi Facility: [facility] Start: 04-18-2024 End: 04-18-2024 ambulatory Noe LOZA [facility] Start: 04-18-2024 End: 04-18-2024 Patient encounter procedure Noe LOZA [facility] Start: 04-13-2024 End: 04-13-2024 ambulatory RONEY LEROY Facility:[facility] Start: 04-13-2024 End: 04-13-2024 Patient encounter procedure Nic [facility] MD Work Phone: Ophthalmology Comment on above: Pseudophakia (Primar y Dx); PCO (posterior capsular opacification), bilateral; History of Descemet membrane endothelial keratoplasty (DMEK); 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) Start: 04-09-2024 End: 04-09-2024 ambulatory RONEY LEROY Not Available Start: 04-06-2024 End: 04-06-2024 ambulatory RONEY LEROY Facility:[facility] Start: 04-06-2024 End: 04-06-2024 Patient encounter procedure Brando Shields MD Work Phone: Ophthalmology Comment on above: 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) Start: 03-18-2024 End: 03-20-2024 Refill Diego Martins MD Work Phone: Ophthalmology Comment on above: Refill Request Start: 03-15-2024 End: 03-15-2024 Assay of hemosiderin, quant Carolyne Kline HEALTH CARE SPECIALIST Work Phone: [facility] Work Phone: Start: 03-15-2024 End: 03-15-2024 Patient encounter procedure Carolyne Kline HEALTH CARE SPECIALIST Work Phone: [facility] 230 Comment on above: Routine general medi oriana examination at [facility] facility (Primary Dx); Mild intermittent asthma without complication (CMS/HCC); Hypertension, unspecified type (CMS/HCC); Hypothyroidism, unspecified type (CMS/HCC); Hyperlipidemia, unspecified hyperlipidemia type (CMS/HCC) Start: 03-15-2024 End: 03-15-2024 Bamboo flowsheet Mounika L Scranton DO Work Phone: [facility] 230 Start: 03-15-2024 End: 03-15-2024 Bamboo flowsheet Mounika L Scranton DO Work Phone: [facility] 230 Start: 03-15-2024 End: 03-15-2024 Office outpatient visit 25 minutes Mounika L Scranton DO Work Phone: [facility] 230 Comment on above: Impingement of right shoulder (Primary Dx); Greater trochanteric bursitis of right hip Start: 03-15-2024 End: 03-15-2024 ambulatory CAROLYNE KLINE Not Available Start: 03-08-2024 End: 03-08-2024 Bamboo flowsheet Mounika L Scranton DO Work Phone: [facility] 230 Start: 03-08-2024 End: 03-08-2024 Bamboo flowsheet Mounika L Scranton DO Work Phone: [facility] 230 Start: 03-08-2024 End: 03-08-2024 Office outpatient visit 15 minutes Mounika L Scranton DO Work Phone: [facility] 230 Comment on above: Impingement of right shoulder (Primary Dx); Right hip pain; Greater trochanteric bursitis of right hip Start: 03-08-2024 End: 03-08-2024 ambulatory MOUNIKA L CUTLER Not Available Start: 03-06-2024 End: 03-06-2024 [facility] Start: 03-06-2024 End: 03-08-2024 Nursing [facility] of [facility] Nalini Work Phone: Rheumatology Comment on [...] Department Unsolicited Start: 03-02-2024 End: 03-02-2024 ambulatory [facility] Start: 01-28-2024 End: 01-28-2024 Bamboo flowsheet Mounika L Scranton DO Work Phone: [facility] Start: 01-28-2024 End: 01-28-2024 Bamboo flowsheet Mounika L Scranton DO Work Phone: [facility] Start: 01-28-2024 End: 01-28-2024 Office outpatient visit 15 minutes Mounika L Scranton DO Work Phone: [facility] [...] Start: 01-20-2024 End: 01-20-2024 ambulatory BRANDO SHIELDS Facility:[facility] Start: 01-20-2024 End: 01-20-2024 Patient encounter procedure [...] Office outpatient visit 25 minutes Jah Sutherland NP Work Phone: [facility] Comment on above: Bronchitis (Primary Dx); Acute cough Start: 01-12-2024 End: 01-12-2024 ambulatory JAH SUTHERLAND Not Available Start: 12-08-2023 End: 12-08-2023 ambulatory [facility] Work Phone: Start: 12-08-2023 End: 12-08-2023 Patient encounter procedure [facility] G[facility] Work Phone: Start: 11-30-2023 End: 11-30-2023 Patient encounter procedure [facility] Comment on above: Sensorineural hearin g loss, bilateral (Primary Dx) Start: 11-30-2023 End: 11-30-2023 ambulatory MOUNIKA DCIK Not Available Start: 11-29-2023 End: 11-29-2023 ambulatory CHALO MENJIVAR Facility:[facility] Start: 11-29-2023 End: 11-29-2023 Patient encounter procedure [...] therapy Start: 11-11-2023 End: 11-11-2023 ambulatory BRANDO SHIELDS Facility:[facility] Start: 11-11-2023 End: 11-11-2023 Patient encounter procedure Brando Shields MD Work Phone: Ophthalmology Comment on above: 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); Retinal edema Start: 11-03-2023 End: 11-03-2023 Patient encounter procedure [facility] [place] Weaver [facility] Comment on above: Sensorineural hearin g loss, bilateral (Primary Dx) Start: 11-03-2023 End: 11-03-2023 ambulatory MOUNIKA CUTLER Not Available Start: 11-02-2023 End: 11-02-2023 Bamboo flowsheet Mounika L Scranton DO Work Phone: [facility] 230 Start: 11-02-2023 End: 11-02-2023 Bamboo flowsheet Mounika L Scranton DO Work Phone: [facility] 230 Start: 11-02-2023 End: 11-02-2023 Office outpatient visit 15 minutes Mounika L Scranton DO Work Phone: [facility] 230 Comment on above: [...] End: 10-27-2023 Office outpatient visit 25 minutes Hang WOODWARD Work Phone: [facility] Comment on above: Generalized abdomina l pain (Primary Dx); Nausea and vomiting, unspecified vomiting type; Diarrhea, unspecified type; Flank pain Start: 10-27-2023 End: 10-29-2023 Clinisync Result Encounter Generic External Data Provider [facility] External Department Unsolicited Start: 10-27-2023 End: 10-29-2023 Clinisync Result Encounter Generic External Data Provider [facility] External Department Unsolicited Start: 10-19-2023 End: 10-19-2023 Telephone encounter Jah Sutherland HEALTH CARE SPECIALIST Work Phone: [facility] Start: 10-18-2023 End: 10-18-2023 ambulatory JAH SUTHERLAND Not Available Start: 10-18-2023 End: 10-18-2023 Office outpatient visit 25 minutes Jah Sutherland HEALTH CARE SPECIALIST Work Phone: [facility] Comment on above: Acute cystitis witho ut hematuria (Primary Dx); Urinary frequency Start: 10-14-2023 End: 10-15-2023 Refill Chalo Menjivar MD Work Phone: Rheumatology Comment on above: Refill Request Start: 10-06-2023 End: 10-06-2023 Patient encounter procedure [facility] Weaver [facility] Comment on above: Sensorineural hearin g loss, bilateral (Primary Dx) Start: 10-06-2023 End: 10-06-2023 ambulatory MOUNIKA CUTLER Not Available Start: 09-29-2023 End: 09-29-2023 Bamboo flowsheet Mounika L Scranton DO Work Phone: [facility] 230 Start: 09-29-2023 End: 09-29-2023 Bamboo flowsheet Mounika L Scranton DO Work Phone: [facility] 230 Start: 09-29-2023 End: 09-29-2023 Assay of hemosiderin, quant Sade Olivas PA Work Phone: [facility] Work Phone: Start: 09-29-2023 End: 09-29-2023 Patient encounter procedure Sade Olivas PA Work Phone: [facility] 474 Comment on above: Routine general medi oriana examination at health care facility (Primary Dx) Start: 09-29-2023 End: 09-29-2023 Office outpatient visit 25 minutes Mounika Dick DO Work Phone: [facility] 230 Comment on above: Polyuria (Primary Dx ); Hypertension, unspecified type (CMS/HCC); Hypothyroidism, unspecified type (CMS/HCC); Primary hypertension (CMS/HCC); Supraventricular tachycardia, unspecified (CMS/HCC); Atherosclerosis of aorta (CMS/HCC) Start: 09-29-2023 End: 09-29-2023 ambulatory SADE OLIVAS Not Available Start: 09-22-2023 End: 09-22-2023 ambulatory ANABELLE KEITA Not Available Start: 09-16-2023 End: 09-16-2023 Patient encounter procedure Brando Shields MD Work Phone: Ophthalmology Comment on above: 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) Start: 09-08-2023 End: 09-08-2023 ambulatory DO Roney Leroy Work Phone: [facility] Work Phone: Start: 09-08-2023 End: 09-08-2023 Patient encounter procedure DO Roney Leroy Work Phone: [facility] Physician [facility] Work Phone: Start: 09-08-2023 Registered Recurring DO Roney mosqueda Work Phone: [facility] Work Phone: Start: 09-03-2023 End: 09-03-2023 Nursing evaluation of patient and report Nurse Lucrecia [facility] Nalini Work Phone: Rheumatology Comment on [...] dry stage Start: 03-18-2023 Bamboo flowsheet Mounika L Cut ler DO Work Phone: [facility] [address] Start: 03-18-2023 Bamboo flowsheet Mounika L Cut ler DO Work Phone: [facility] [address] Start: 01-03-2023 Telephone encounter Paulo harmon MD Work Phone: Ophthalmology Comment on above: Patient Update Start: 12-08-2022 End: 12-08-2022 ambulatory AFSHIN ROCHA [facility] Ambulatory Start: 12-08-2022 End: 12-08-2022 Office outpatient visit 25 minutes Afshin Rocha MD Work Phone: [facility] Comment on above: Vertigo (Primary Dx) ; SVT (supraventricular tachycardia); Overweight (BMI 25.0-29.9); Essential hypertension Start: 11-23-2022 End: 11-23-2022 ambulatory Meir Morrissey Other [facility] Other Start: 11-23-2022 Telephone encounter Meir Morrissey [facility] Start: 09-09-2022 Telephone encounter Chalo ott MD Work Phone: Rheumatology Comment on above: Results (BMD) Start: 08-26-2022 Telephone encounter Nic Anderson MD Work Phone: Ophthalmology Comment on above: Patient Question Start: 08-13-2022 Preprocedural examin ation done Mounika [place] DO [facility] Phone: 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 Start: 11-14-2021 End: 11-15-[address] NOE LOZA Facility:[facility] Start: 11-09-2021 End: 11-09-2021 ambulatory Isiah Alvares Facility: Start: 09-30-2021 End: 09-30-2021 Patient encounter procedure Nic Anderson MD Work Phone: Ophthalmology Comment on above: Anterior capsular op acification (Primary Dx); Pseudophakia; History of Descemet membrane endothelial keratoplasty (DMEK); Intermediate stage nonexudative age-related macular degeneration of both eyes; Retained lens material following cataract surgery of left eye Start: 09-29-2021 End: 09-29-2021 ambulatory Meir Morrissey Other [facility] Other Start: 09-29-2021 Telephone encounter Meir Morrissey [facility] Start: 09-26-2021 Telephone encounter Nic Anderson MD Work Phone: Ophthalmology Comment on above: Patient Update Start: 08-13-2021 End: 08-13-2021 Refill Robert Crocker MD Work Phone: Orthopaedics Comment on above: Status post bilatera l knee replacements (Primary Dx) Status post bilatera l knee replacements [Z96.653] Start: 07-30-2021 End: 07-30-2021 Patient encounter procedure Robert Sullivan DPDisha Work Phone: Podiatry Comment on above: Onychomycosis of rig ht great toe (Primary Dx) Start: 07-22-2021 End: 07-22-2021 Patient encounter procedure Nic Anderson MD Work Phone: Ophthalmology Comment on above: History of Descemet membrane endothelial keratoplasty (DMEK) (Primary Dx); Pseudophakia Start: 07-02-2021 ambulatory Maribell Butler RN [facility] Start: 07-02-2021 Patient encounter procedure Maribell Butler RN [facility] [employer] Comment on above: Appointment Start: 06-03-2021 End: [...] 04-14-2021 End: 09-29-2023 Preprocedural examination done Nic Anedrson MD Work Phone: [facility] Work Phone: Start: 12-05-2020 Patient encounter procedure Meir Morrissey [facility] Gastroenterology Start: 04-19-2020 End: 04-19-2020 Subsequent hospital visit by physician Omar Crocker 1 Work Phone: Radiology Comment on above: Status post bilatera l knee replacements [Z96.653] Start: 12-20-2018 End: 12-20-2018 Departed Referred Roney Leroy [facility] Start: 12-08-2018 Registered Recurring Roney Leroy [facility] Start: 06-20-2018 End: 06-20-2018 Patient encounter procedure [facility] Procedures Date Procedure Procedure Detail Performing Clinician Start: 10-05-2024 End: 10-05-2024 Intravitreal njx pharmacologic agt spx Brando Shields MD Work Phone: Start: 10-05-2024 End: 10-05-2024 Computerized ophthalmic imaging retina Brando Shields MD Work Phone: Start: 09-05-2024 Dual energy X-ray absorptiometry Roney Leroy DO Work Phone: Start: 08-16-2024 [facility] CALCIUM SERPL-[facility] Generic External Data Provider Start: 06-26-2024 Screening mammography of bilateral breasts Roney Rad DO Work Phone: Start: 04-06-2024 End: 04-06-2024 Intravitreal njx pharmacologic agt spx Brando Shields MD Work Phone: Start: 04-06-2024 Computerized ophthalmic imaging retina Brando Shields MD Work Phone: Start: 03-02-2024 [facility] CBC PNL BLD AUTO Generic External Data Provider Start: 01-26-2024 URINARY TRACT INFECTION (HTRX) Moses Richards DO Work Phone: Start: 01-26-2024 Urnls dip stick/tablet rgnt auto w/o microscopy Moses Richards DO Work Phone: Start: 01-20-2024 Computerized ophthalmic imaging retina Brando Shields MD Work Phone: Start: 01-20-2024 End: 01-20-2024 Intravitreal njx pharmacologic agt spx Brando Shields MD Work Phone: Start: 01-12-2024 STATUS COVID-19/FLU Moses Richards DO Work Phone: Start: 11-11-2023 Computerized ophthalmic imaging retina Brando Shields MD Work Phone: Start: 11-11-2023 End: 11-11-2023 Intravitreal njx pharmacologic agt spx Brando Shields MD Work Phone: Start: 11-01-2023 C. DIFFICILE PCR Generic External Data Provider Start: 10-27-2023 Bacteria identified in Urine by Culture Generic External Data Provider Start: 10-27-2023 Urnls dip stick/tablet rgnt auto w/o microscopy Moses Richards DO Work Phone: Start: 10-18-2023 URINARY TRACT INFECTION (HTRX) Jah Sutherland HEALTH CARE SPECIALIST Work Phone: Start: 10-18-2023 Urnls dip stick/tablet rgnt auto w/o microscopy Jah Sutherland HEALTH CARE SPECIALIST Work Phone: Start: 09-16-2023 End: 09-16-2023 Intravitreal [...] Screening mammography of bilateral breasts DO Roney Rad Work Phone: Start: 06-03-2023 End: 06-03-2023 Intravitreal [...] Screening mammography of bilateral breasts DO Roney Becerriler Work Phone: Start: 04-14-2022 Computerized corneal topography [...] 04-19-2020 Radiologic examination knee 3 views Lisa Graves PA-C Work Phone: Start: 06-14-2019 Bilateral mammography DO Roney Leroy Work Phone: Start: 06-14-2019 Ultrasonography of breast DO Roney Leroy Work Phone: Start: 12-20-2018 End: 12-20-2018 Bacteria identification test Roney Leroy Start: 11-28-2018 Adult depression screening assessment Nic Anderson MD Work Phone: Start: 08-19-2018 End: 08-19-2018 Dual energy X-ray photon absorptiometry Roney Rad Start: 07-01-2017 Extracorporeal shockwave lithotripsy of calculus [...] Author Start: 03-02-2027 Diabetes Screening Diabetes Screening [facility] Start: 03-05-2026 Diabetes Screening Diabetes Screening [facility] Start: 10-20-2025 End: 03-29-2026 OCT MACULA CIRRUS OU (BOTH EYES) OCT MACULA CIRRUS OU (BOTH EYES) [facility] Imaging Routine 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) Expected: 10/20/2025, Expires: 03/29/2026 [facility] Work Phone: Comment on above: Expected: 10/20/2025, Expires: Start: 08-30-2025 End: 08-30-2025 Patient encounter procedure 08/30/2025 10:45 AM EDT Office Visit [facility] [address] [address] Gunner Hidalgo DO [address] [address] [facility] Start: 08-03-2025 DIABETES SCREEN DIABETES SCREEN [facility] Start: 08-03-2025 Diabetes Screening Diabetes Screening [facility] Start: 04-21-2025 End: 09-28-2025 OCT MACULA CIRRUS OU (BOTH EYES) OCT MACULA CIRRUS OU (BOTH EYES) [facility] Imaging Routine 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) Expected: 04/21/2025, Expires: 09/28/2025 [facility] Work Phone: Comment on above: Expected: 04/21/2025, Expires: Start: 04-19-2025 End: 04-19-2025 Patient encounter procedure 04/19/2025 9:15 AM EDT Office Visit [facility] Ophthalmology [address] [address] Nic Anderson MD [address] [place] [address] [facility] [address] [address] Corneal Transplant yearly Ophthalmology Comment on above: Corneal Transplant yearly Start: 03-15-2025 Medicare Annual Wellness (AWV) Medicare Annual Wellness (AWV) [facility] Start: 02-03-2025 End: 07-13-2025 OCT MACULA CIRRUS OU (BOTH EYES) OCT MACULA CIRRUS OU (BOTH EYES) [facility] Imaging Routine 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) Expected: 02/03/2025, Expires: 07/13/2025 [facility] Work Phone: Comment on above: Expected: 02/03/2025, Expires: Start: 12-28-2024 End: 12-28-2024 Patient encounter procedure 12/28/2024 1:30 PM EST Office Visit [facility] [address] [place] [address] Brando Shields MD [address] [place] [address] [facility] [address] [address] *12 W, DFE/OCT/OPTOS/FAF, AVASTIN OU Ophthalmology Comment on above: *12 W, DFE/OCT/OPTOS/FAF, AVASTIN OU Start: 11-25-2024 End: 05-04-2025 OCT MACULA CIRRUS OU (BOTH EYES) OCT MACULA CIRRUS OU (BOTH EYES) [facility] Imaging Routine 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) Expected: 09/30/2024, Expires: 2025 [facility] Work Phone: Comment on above: Expected: 09/30/2024, Expires: Start: 09-28-2024 Medicare Annual Wellness (AWV) Medicare Annual Wellness (AWV) [facility] Start: 09-25-2024 End: 02-16-2026 YAG CAPSULOTOMY OD (RIGHT EYE) YAG CAPSULOTOMY OD (RIGHT EYE) Ophthalmology Routine PCO (posterior capsular opacification), right Expected: 09/25/2024, Expires: 02/16/2026 [facility] Work Phone: Comment on above: Expected: 09/25/2024, Expires: Start: 09-13-2024 End: 09-13-2024 Patient encounter procedure 09/13/2024 10:30 AM EDT Office Visit [facility] Op[facility]mology [address] [place] [address] David Tomlin S, OD [address] [place] [address] [facility] [address] [address] Return for -F/U 1-2 weeks with correctional substance abuse counselor (Fred). Ophthalmology Comment on above: Return for -F/U 1-[address] (Fred). Start: 09-07-2024 End: 09-07-2024 Patient encounter procedure Ophthalmology Comment on above: YAG EVAL YAG OD -last seen Dr SINGLETON Start: 09-04-2024 End: 09-04-2024 Nursing evaluation of patient and report 09/04/2024 2:00 PM EDT Nurse Visit Rheumatology [address] [place], [place] [id number] Nurse Lucrecia Gayle [facility] [address] [place] [address] [facility] Comment on above: PROLIA Start: 08-24-2024 End: 08-24-2024 Patient encounter procedure 08/24/2024 10:45 AM EDT Office Visit [facility] [address] [place] [address] Gunner Hidalgo DO [address] [place] [address] [facility] Start: 08-19-2024 End: 01-26-2025 OCT MACULA CIRRUS OU (BOTH EYES) OCT MACULA CIRRUS OU (BOTH EYES) [facility] Imaging Routine 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) Expected: 08/19/2024, Expires: 01/26/2025 [facility] Work Phone: Comment on above: Expected: 08/19/2024, Expires: Start: 08-08-2024 End: 03-05-2025 25-hydroxyvitamin D3 [Mass/volume] in Serum or Plasma VITAMIN D 25 HYDROXY Lab Routine Vitamin D deficiency Expected: 08/08/2024 (Approximate), Expires: 03/05/2025 [facility] Comment on above: Expected: 08/08/2024 (Approximate), Expi res: 03/05/2025 Start: 08-08-2024 End: 03-05-2025 Calcium [Mass/volume] in Serum or Plasma CALCIUM, TOTAL Lab Routine Hypocalcemia Expected: 08/08/2024 (Approximate), Expires: 03/05/2025 [facility] Work Phone: Comment on above: Expected: 08/08/2024 (Approximate), Expi res: 03/05/2025 Start: 07-15-2024 End: 12-22-2024 OCT MACULA CIRRUS OU (BOTH EYES) OCT MACULA CIRRUS OU (BOTH EYES) [facility] Imaging Routine 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) Expected: 07/15/2024, Expires: 12/22/2024 [facility] Work Phone: Comment on above: Expected: 07/15/2024, Expires: Start: 07-06-2024 End: 07-06-2024 Patient encounter procedure 07/06/2024 10:30 AM EDT Office Visit [facility] [address] [place] [address] Brando Shields MD [address] [place] [address] *13 W, DFE/OCT, AVASTIN OU auth pending Ophthalmology Comment on above: *13 W, DFE/OCT, AVASTIN OU auth pending Start: 06-17-2024 End: 11-24-2024 OCT MACULA CIRRUS OU (BOTH EYES) OCT MACULA CIRRUS OU (BOTH EYES) [facility] Imaging Routine 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) Expected: 06/17/2024, Expires: 11/24/2024 [facility] Work Phone: Comment on above: Expected: 06/17/2024, Expires: Start: 04-16-2024 DIABETES SCREEN DIABETES SCREEN [facility] Start: 04-13-2024 End: 04-13-2024 Patient encounter procedure 04/13/2024 10:15 AM EST Office Visit [facility] [address] [address] Nic Anderson MD [address] [place] [address] 1 YEAR FOLLOW UP Ophthalmology Comment on above: 1 YEAR FOLLOW UP Start: 04-06-2024 End: 04-06-2024 Patient encounter procedure Ophthalmology Comment on above: Return in about 11 weeks (around 04/06/19) for Inj/OCT only. *11 W DTI AVASTIN OU Start: 03-15-2024 End: 03-15-2024 Patient encounter procedure 03/15/2024 1:00 PM EST Office Visit [facility] [address] [place] [phone] [place], Mounika L, DO [address] [place] [address] Arrived [facility] Comment on above: Arrived Start: 03-08-2024 End: 03-08-2024 Patient encounter procedure 03/08/2024 1:00 PM EST Office Visit [facility] [address] [place] [phone] [place] Mounika L, DO [address] [place] [address] Arrived [facility] Comment on above: Arrived Start: 03-06-2024 End: 03-06-2024 Nursing evaluation of patient and report 03/06/2024 11:30 AM EST Nurse Visit Rheumatology [address] [facility] [place] [address] [facility], [facility] [address] [place] [address] [facility] Rhe[facility]ology Comment on above: [facility] Start: 02-28-2024 End: 02-28-2024 ambulatory 02/28/2024 10:30 AM EST Results Only [facility] [address] [place] [address] [place] [address] labs [facility] Comment on above: labs Start: 02-09-2024 End: 11-27-2024 25-hydroxyvitamin D3 [Mass/volume] in Serum or Plasma VITAMIN D 25 HYDROXY Lab Routine Vitamin D deficiency Expected: 02/09/2024 (Approximate), Expires: 11/27/2024 [facility] Comment on above: Expected: 02/09/2024 (Approximate), Expi res: 11/27/2024 Start: 02-09-2024 Advance Directive Discussion Advance Directive Discussion [facility] Start: 02-09-2024 End: 11-27-2024 C reactive protein [Mass/volume] in Serum or Plasma C-REACTIVE PROTEIN Lab Routine Elevated sed rate Elevated C-reactive protein (CRP) Expected: 02/09/2024 (Approximate), Expires: 11/27/2024 [facility] Comment on above: Expected: 02/09/2024 (Approximate), Expi res: 11/27/2024 Start: 02-09-2024 End: 11-27-2024 CBC panel - Blood by Automated count COMPLETE BLOOD COUNT Lab Routine Anemia of chronic disease Expected: 02/09/2024 (Approximate), Expires: 11/27/2024 [facility] Comment on above: Expected: 02/09/2024 (Approximate), Expi res: 11/27/2024 Start: 02-09-2024 End: 11-27-2024 Comprehensive metabolic 2000 panel - Serum or Plasma COMPREHENSIVE METABOLIC PANEL Lab Routine Elevated LFTs Expected: 02/09/2024 (Approximate), Expires: 11/27/2024 [facility] Work Phone: Comment on above: Expected: 02/09/2024 (Approximate), Expi res: 11/27/2024 Start: 02-09-2024 End: 11-27-2024 Erythrocyte sedimentation rate SEDIMENTATION RATE, WESTERGREN Lab Routine Elevated sed rate Elevated C-reactive protein (CRP) Expected: 02/09/2024 (Approximate), Expires: 11/27/2024 [facility] Comment on above: Expected: 02/09/2024 (Approximate), Expi res: 11/27/2024 Start: 02-09-2024 Medicare Advantage Annual Wellness Visit Medicare Advantage Annual Wellness Visit [facility] Start: 02-09-2024 End: 05-10-2024 Urate [Mass/volume] in Serum or Plasma URIC ACID Lab Routine Hyperuricemia Expected: 02/09/2024 (Approximate), Expires: 05/10/2024 [facility] Comment on above: Expected: 02/09/2024 (Approximate), Expi res: 05/10/2024 Start: 01-30-2024 Medicare Annual Wellness (AWV) Medicare Annual Wellness (AWV) [facility] Start: 01-28-2024 End: 01-28-2024 Patient encounter procedure 01/28/2024 9:40 AM EST Office Visit [facility] [address] [place] [address] Mounika Dick DO [address] [place] [address] Arrived [facility] Comment on above: Arrived Start: 01-20-2024 End: 01-20-2024 Patient encounter procedure Ophthalmology Comment on above: Return in about 10 weeks (around 024) for DFE. *10 W DFE/OCT, AVAST IN OU Start: 11-30-2023 End: 11-30-2023 Patient encounter procedure 11/30/2023 10:30 AM EDT Office Visit [facility] [address] [place] [phone] [facility] Start: 11-29-2023 End: 11-29-2023 Patient encounter procedure 11/29/2023 12:00 PM EDT Office Visit Rheumatology [address] [place] [address] Chalo Menjivar MD [address] [place] [address] Postmenopausal osteoporosis of multiple sites Rheumatology Comment on above: Postmenopausal osteoporosis of multiple sites Start: 11-11-2023 End: 11-11-2023 Patient encounter procedure Ophthalmology Comment on above: Return in about 7 weeks (around ) for Inj/OCT only, 7-8 weeks. *7-8 W DTI AVASTIN O U Start: 11-03-2023 End: 11-03-2023 Patient encounter procedure 11/03/2023 1:00 PM EDT Office Visit [facility] [address] [place] [phone] [facility] Start: 11-02-2023 End: 11-01-2024 Bacteria [...] 11-02-2023 End: 11-02-2023 Patient encounter procedure [facility] Comment on above: Arrived Start: 10-25-2023 End: 10-25-2023 Patient encounter procedure 10/25/2023 10:30 AM EDT Office Visit [facility] [address] [place] [address] [facility] Start: 10-10-2023 Covid-19 Vaccine ( season) Covid-19 Vaccine ( season) [facility] Start: 10-10-2023 Covid-19 Vaccine ( season) Covid-19 Vaccine ( season) [facility] Start: 10-10-2023 Influenza vaccination Influenza Vaccine (#1) [facility] Start: 10-06-2023 End: 10-06-2023 Patient encounter procedure 10/06/2023 3:00 PM EDT Office Visit [facility] [address] [place] [address] [facility] Start: 09-29-2023 End: 09-28-2024 CBC W Auto Differential panel - Blood CBC and differential Lab Routine Hypertension, unspecified type (CMS/HCC) Expected: 09/29/2023 (Approximate), Expires: 09/28/2024 [facility] Work Phone: Comment on above: Expected: 09/29/2023 (Approximate), Expi res: 09/28/2024 Start: 09-29-2023 End: 09-28-2024 Comprehensive metabolic 2000 panel - Serum or Plasma Comprehensive metabolic panel Lab Routine Hypertension, unspecified type (CMS/HCC) Expected: 09/29/2023 (Approximate), Expires: 09/28/2024 [facility] Comment on above: Expected: 09/29/2023 (Approximate), Expi res: 09/28/2024 Start: 09-29-2023 End: 09-28-2024 Lipid 1996 panel - Serum or Plasma Lipid panel Lab Routine Hypertension, unspecified type (CMS/HCC) Expected: 09/29/2023 (Approximate), Expires: 09/28/2024 [facility] Comment on above: Expected: 09/29/2023 (Approximate), Expi res: 09/28/2024 Start: 09-29-2023 End: 09-28-2024 Thyrotropin [Units/volume] in Serum or Plasma Tsh+free t4 Lab Routine Hypothyroidism, unspecified type (CMS/HCC) Expected: 09/29/2023 (Approximate), Expires: 09/28/2024 [facility] Comment on above: Expected: 09/29/2023 (Approximate), Expi res: 09/28/2024 Start: 09-29-2023 End: 09-28-2024 Urinalysis with microscopic (reflex culture if indicated) Urinalysis with microscopic (reflex culture if indicated) Lab Routine Polyuria Expected: 09/29/2023 (Approximate), Expires: 09/28/2024 [facility] Comment on above: Expected: 09/29/2023 (Approximate), Expi res: 09/28/2024 Start: 09-29-2023 End: 09-29-2023 Patient encounter procedure [facility] Comment on above: Arrived Start: 09-16-2023 End: 09-16-2023 Patient encounter procedure 09/16/2023 10:30 AM EDT Office Visit [facility] Op[facility] [address] [place], [place] [id number] Brando Shields MD [address] [place] [address] *6 W DTI AVASTIN OU Ophthalmology Comment on above: *6 W DTI AVASTIN OU Start: 09-03-2023 End: 09-03-2023 Nursing evaluation of patient and report Rheumatology Comment on above: Laverne Martinezia + Start: 08-25-2023 End: 08-25-2023 Patient encounter procedure 08/25/2023 1:15 PM EDT [facility] [address] [facility] [address] [place] [phone] Gunner Hidalgo DO [address] [place] [address] [facility] Start: 08-05-2023 End: 08-05-2023 Patient encounter procedure Ophthalmology Comment on above: Return in about 6 weeks (around 08/12/2023 ) for Inj/OCT only, OK to OB fill all green spots 1st . *6 W DTI AVASTIN OU Start: 07-01-2023 End: 07-01-2023 Patient encounter procedure 07/01/2023 8:45 AM EDT Office Visit [facility] [address] [place] [address] Brando Shields MD [address] [place] [address] *4 W DTI AVASTIN OU Ophthalmology Comment on above: *4 W DTI AVASTIN OU Start: 02-08-2023 Advance Directive Discussion Advance Directive Discussion [facility] Start: 02-08-2023 Behavioral Health Screening Behavioral Health Screening [facility] Start: 02-08-2023 Depression Assessment Depression Assessment [facility] Start: 10-09-2022 Covid-19 Vaccine () Covid-19 Vaccine () [facility] Start: 10-09-2022 Influenza vaccination [facility] Start: 05-24-2022 COVID-19 VACCINE (5 - Pfizer series) COVID-19 VACCINE (5 - Pfizer series) [facility] Start: 03-20-2022 COVID-19 Vaccine (4 - Pfizer series) COVID-19 Vaccine (4 - Pfizer series) [facility] Start: 02-08-2022 ADVANCE DIRECTIVE DISCUSSION ADVANCE DIRECTIVE DISCUSSION [facility] Start: 02-08-2022 DEPRESSION ASSESSMENT DEPRESSION ASSESSMENT [facility] Start: 10-09-2021 Influenza vaccination [facility] Start: 03-27-2021 COVID-19 VACCINE (4 - Booster for Pfizer series) COVID-19 VACCINE (4 - Booster for Pfizer series) [facility] Start: 03-19-2021 COVID-19 VACCINE (4 - Booster for Pfizer series) COVID-19 VACCINE (4 - Booster for Pfizer series) [facility] Start: 02-08-2021 ADVANCE DIRECTIVE DISCUSSION ADVANCE DIRECTIVE DISCUSSION [facility] Start: 02-08-2021 DEPRESSION ASSESSMENT DEPRESSION ASSESSMENT [facility] Start: 10-09-2020 Influenza vaccination INFLUENZA (#1) [facility] Start: 02-24-2020 PNEUMOCOCCAL: 65+ (2 - PCV) PNEUMOCOCCAL: 65+ (2 - PCV) [facility] Start: 02-24-2020 PNEUMOCOCCAL: 65+ (3 - PCV) PNEUMOCOCCAL: 65+ (3 - PCV) [facility] Start: 11-29-2019 Adult depression screening assessment DEPRESSION SCREENING [facility] Start: 2017 RSV Vaccine (1 - 1-dose 75+ series) RSV Vaccine (1 - 1-dose 75+ series) [facility] Start: 2007 BONE DENSITY BONE DENSITY [facility] Start: 2007 Bone Density Screening Bone Density Screening [facility] Start: 2007 Screening for osteoporosis Bone Density Screening [facility] Start: 2002 RSV Vaccine (1 - 1-dose 60+ series) RSV Vaccine (1 - 1-dose 60+ series) [facility] Start: 1964 DTaP/Tdap/Td Vaccines (1 - Tdap) DTaP/Tdap/Td Vaccines (1 - Tdap) [facility] Start: 1961 Urine microalbumin profile [facility] Start: 1960 ANNUAL PCP TEAM CHRONIC DISEASE VISIT ANNUAL PCP TEAM CHRONIC DISEASE VISIT [facility] Start: 1960 Anxiety Screening Anxiety Screening [facility] Start: 1960 BP CONTROLLED (<130/80) BP CONTROLLED (<130/80) [facility] Start: 1960 Depression Screening Depression Screening [facility] Start: 1960 Diabetes mellitus screening Diabetes Screening [facility] Start: 1960 SPIROMETRY SPIROMETRY [facility] Start: 1942 Lipid panel Lipid Panel [facility] Start: 1942 Medicare Annual Wellness Visit Medicare Annual Wellness Visit (AWV) [facility] Start: 1942 Screening for osteoporosis Bone Density Scan [facility] Start: 1942 Thyroid stimulating hormone measurement TSH Level [facility] End: 12-27-2024 BD DXA TRABECULAR BONE SCORE (TBS) BD DXA TRABECULAR BONE SCORE (TBS) Radiology Routine Postmenopausal osteoporosis of multiple sites 1 Occurrences starting 11/28/2023 until 12/27/2024 [facility] Comment on above: 1 Occurrences starting 11/28/2023 until 12/27/2024 DXA Skeletal system.axial Views for bone density [facility] End: 12-27-2024 DXA Skeletal system.axial Views for bone density DXA-AXIAL SKELETON Radiology Routine Postmenopausal osteoporosis of multiple sites 1 Occurrences starting 11/28/2023 until 12/27/2024 [facility] Comment on above: 1 Occurrences starting 11/28/2023 until 12/27/2024 End: 12-27-2024 DXA-FOREARM SKELETON DXA-FOREARM SKELETON Radiology Routine Postmenopausal osteoporosis of multiple sites 1 Occurrences starting 11/28/2023 until 12/27/2024 [facility] Comment on above: 1 Occurrences starting 11/28/2023 until 12/27/2024 MG Breast - bilatera l Screening [facility] MG Breast - bilatera l Screening [facility] MG Breast - bilatera l Screening [facility] End: 10-21-2024 OCT MACULA CIRRUS OU (BOTH EYES) OCT MACULA CIRRUS OU (BOTH EYES) OPHT Imaging Routine 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, left eye, intermediate dry stage Pseudophakia 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 1 Occurrences starting 04/30/2023 until 10/21/2024 [facility] Work Phone: Comment on above: 1 Occurrences starting 04/30/2023 until 10/21/2024 URINARY TRACT INFECTION (HTRX) URINARY TRACT INFECTION (HTRX) Lab Routine Flank pain Ordered: 10/27/2023 [facility] Work Phone: Comment on above: Ordered: 10/27/2023 YAG CAPSULOTOMY OD (RIGHT EYE) YAG CAPSULOTOMY OD (RIGHT EYE) Ophthalmology Routine PCO (posterior capsular opacification), right 09/07/2024 3:40 PM EDT [facility] EYE INS TITUTE [facility] Immunizations Immunization Date Immunization Notes Care Provider Izabella sidhu 01-29-2023 Influenza, injectabl e, Madin Elaine Canine Kidney, preservative free, quadrivalent Mounika Scranton DO Work Phone: [facility] 01-29-2023 influenza virus vaccine, unspecified formulation Nic Anderson MD Work Phone: [facility] 01-23-2022 SARS-CoV-2 (COVID-19 ) [id number] Noe LOZA [facility] 12-19-2021 Influenza, Seasonal, Quadrivalent, Adjuvanted Mounika Scranton DO Work Phone: [facility] 12-19-2021 Seasonal, trivalent, recombinant, injectable influenza vaccine, preservative free Mounika Scranton DO Work Phone: [facility] 12-19-2021 influenza virus vaccine, unspecified formulation Afshin Rocha MD Work Phone: [facility] 08-18-2021 influenza, injectabl e, quadrivalent, preservative free Mounika Scranton DO Work Phone: [facility] 12-25-2020 SARS-CoV-2 (COVID-19 ) mRNA BNT-162b2 vax Noe LOZA [facility] 03-29-2020 COVID-19 vaccine, ag e 12+ yr (PFIZER-BIONTECH - PURPLE TOP) Nic Anderson MD Work Phone: [facility] Work Phone: Comment on above: Result Comment: 2021: [id number] 03-11-2020 SARS-CoV-2 (COVID-19 ) mRNA-1273 vaccine Noe LOZA [facility] 03-08-2020 COVID-19 vaccine, ag e 12+ yr (PFIZER-BIONTECH - PURPLE TOP) Nic Anderson MD Work Phone: [facility] Work Phone: Comment on above: Result Comment: 2021: [id number] 02-09-2020 SARS-CoV-2 (COVID-19 ) mRNA-1273 vaccine Noe LOZA [facility] 09-25-2019 influenza virus vaccine, unspecified formulation Noe LOZA [facility] 09-25-2019 influenza, injectabl e, quadrivalent, preservative free Nic Anderson MD Work Phone: [facility] Work Phone: 09-22-2019 influenza, high-dose , quadrivalent vaccine (FLUZONE HIGH DOSE QUADRIVALENT) Nic Anderson MD Work Phone: [facility] Work Phone: 09-22-2019 zoster vaccine recombinant Nic Anderson MD Work Phone: [facility] Work Phone: 09-09-2019 influenza virus vaccine, unspecified formulation Noe LOAZ [facility] 09-09-2019 influenza, injectabl e, quadrivalent, preservative free Nic Anderson MD Work Phone: [facility] Work Phone: 04-10-2019 zoster vaccine recombinant Nic Anderson MD Work Phone: [facility] Work Phone: 02-23-2019 pneumococcal polysaccharide vaccine, 23 valent Nic Anderson MD Work Phone: [facility] Work Phone: 12-19-2018 influenza, injectabl e, madin jose canine kidney, preservative free Nic Anderson MD Work Phone: [facility] Work Phone: 01-13-2018 influenza virus vaccine, unspecified formulation Noe LOZA [facility] 01-13-2018 influenza, injectabl e, quadrivalent, contains preservative Nic Anderson MD Work Phone: [facility] Work Phone: 11-12-2016 influenza, injectabl e, madin jose canine kidney, preservative free Nic Anderson MD Work Phone: [facility] Work Phone: 11-12-2016 Influenza, injectabl e, Madin Elaine Canine Kidney, preservative free, quadrivalent Mounika Scranton DO Work Phone: [facility] 12-17-2015 influenza virus vaccine, unspecified formulation Noe LOZA [facility] 12-17-2015 influenza, injectabl e, quadrivalent, contains preservative Nic Anderson MD Work Phone: [facility] Work Phone: 12-17-2015 influenza, injectabl e, quadrivalent, preservative free Mounika Scranton DO Work Phone: [facility] 12-31-2014 pneumococcal conjuga te vaccine, 13 valent Mounika Scranton DO Work Phone: [facility] 11-30-2014 influenza, seasonal, injectable, preservative free Mounika Dick DO Work Phone: [facility] 07-11-2009 pneumococcal polysaccharide vaccine, 23 valent iNc Anderson MD Work Phone: [facility] NEGATED: Highlighted row has not occurred!02-23-2019 influenza, high dose seasonal, preservative-free DO Roney Becerriler Work Phone: [facility] Payers Date Payer Category Payer Medicare (Managed Care) 1.2. [id number] 2022 Medicare [id number] 2021 Medicare [employer] MEDICARE A ETNA MEDICARE PPO [id number] 2021-Present [phone] [address] [place] [address] PPO [id number] 2018 Self-pay [id number] 2017 Medicare [id number] 1959 Medicare [id number] 2.16.840.1.957425.19 1942 Unknown [id number] 2.16.840.1.959747.3.579.2.5 1942 Unknown [id number] 2.16.840.1.304468.3.579.2.5 93 1942 Unknown [id number] 2.16.840.1.143913.3.579.2.5 1942 Unknown [id number] 2.16.840.1.640565.3.579.2.1 244 1942 Unknown [id number] 2.16.840.1.086697.3.579.2.7 1942 Unknown [id number] 2.16.840.1.063854.3.579.2.7 27 1942 Unknown [id number] 2.16.840.1.668432.3.579.2.1 259 1942 Unknown [id number] 2.16.840.1.841053.3.579.2.1 259 1942 Unknown [id number] 2.16.840.1.563300.3.579.2.1 259 1942 Unknown [id number] 2.16.840.1.653871.3.579.2.1 1942 Unknown [id number] 2.16.840.1.909877.3.579.2.1 1942 Unknown [id number] 2.16.840.1.728470.3.579.2.1 1942 Unknown [id number] 2.16.840.1.859456.3.579.2.1 1942 Unknown [id number] 2.16.840.1.789094.3.579.2.1 1942 Unknown [id number] 2.16.840.1.672825.3.579.2.1 1942 Unknown [id number] 2.16.840.1.611142.3.579.2.1 1942 Unknown [id number] 2.16.840.1.897933.3.579.2.1 259 1942 Unknown [id number] 2.16.840.1.055476.3.579.2.1 1942 Unknown [id number] 2.16.840.1.132103.3.579.2.1 1942 Unknown [id number] 2.16.840.1.638297.3.579.2.1 1942 Unknown [id number] 2.16.840.1.678014.3.579.2.1 259 1942 Unknown [id number] 2.16.840.1.418183.3.579.2.1 259 1942 Unknown [id number] 2.16.840.1.819330.3.579.2.1 259 1942 Unknown [id number] 2.16.840.1.429556.3.579.2.1 259 1942 Unknown [id number] 2.16.840.1.912722.3.579.2.1 259 1942 Unknown [id number] 2.16.840.1.564347.3.579.2.1 286 1942 Unknown [id number] 2.16.840.1.818584.3.579.2.1 286 1942 Unknown [id number] 2.16.840.1.231550.3.579.2.1 286 1942 Unknown [id number] 2.16.840.1.925700.3.579.2.1 286 Medicare [id number] Private Health Insurance DEB NVTYD [id number] Private Health Insurance [id number] 2.16.840.1.308323.19 Unknown [id number] Unknown [id number] 2.16.840.1.887785.3.579.2.5 31 Social History Date Type Detail Facility Start: 12-10-2018 End: 11-29-2023 Tobacco smoking status NHIS Ex-smoker (finding) [facility] Start: 1940 Sex Assigned At Female [facility] End: 06-21-1974 History of tobacco use Current smoker [facility] Start: 05-06-2021 End: 10-05-2024 Alcohol intake Current drinker of alcohol (finding) [facility] Start: 1940 Sex Assigned At Not on file [facility] Start: 03-20-2020 End: 12-08-2022 Exposure to SARS-CoV-2 (event) Not sure [facility] Start: 11-28-2018 End: 08-03-2022 Sex Assigned At [facility] End: 06-21-1974 History of tobacco use Cigarette Smoker [facility] Start: 02-22-2013 End: 11-29-2023 Tobacco use and exposure Smokeless tobacco non-user [facility] Start: 01-10-2012 End: 04-18-2024 Tobacco smoking status Never [facility] [place] Start: 11-24-2021 Tobacco Comment socially only [facility] Start: 11-28-2018 End: 08-03-2022 History of Social function [facility] Start: 12-08-2022 Alcohol Comment [facility] Work Phone: Start: 05-19-2022 End: 08-13-2022 Tobacco smoking status NHIS Never smoked tobacco [facility] Within the last year , have you been afraid of your partner or ex-partner? No [facility] Do you belong to any clubs or organizations such as episcopal groups, unions, fraternal or athletic groups, or [...] Start: 05-11-2024 End: 05-11-2024 Sex Female (finding) [facility] Medical Equipment Procedure Code Equipment Code Equipment Origin al Text Equipment Identifier Dates Bernard Bn Smplx Hv Gentamicin Fd - [id number] Start: 06-25-2016 Bernard Bn Smplx Hv Gentamicin Fd - [id number] Start: 06-25-2016 Cornea Tissue Pre-Loaded Dmek - [id number] Start: 09-09-2020 Cornea Tissue Pre-Loaded Dmek - [id number] Start: 04-28-2021 Gas Ispan Constellation Intraocular Vision System Sf6 125 - [id number] Start: 09-09-2020 Gas Ispan Constellation Intraocular Vision System Sf6 125 - [id number] Start: 04-28-2021 Lens Iol 0d +23 Savi Uv Abs - [id number] Start: 09-09-2020 Lens Iol 0d +23 Savi Uv Abs - [id number] Start: 04-28-2021 Component Person a 7 Standard Cocr Femoral Cemented Posterior - [id number] Start: 06-25-2016 Component 32mm A ll Poly Patellar Psn - [id number] Start: 06-25-2016 Surface Persona 6-9 Cd Vivacit-E 10mm Articular Constrain Posterior - [id number] Start: 06-25-2016 Baseplate Person a 5d D Tivanium Tibial Cemented Stem Knee Left - [id number] Start: 06-25-2016 Goals Date Patient Goal Desired Activity /State Functional Status Date Assessment Result Facility 11-18-2021 Functional Status N/A [facility] 06-26-2016 Are you deaf, or do you have serious difficulty hearing No 06/26/2016 5:00 PM Ying Hardin RN No [facility] 06-26-2016 Are you blind, or do you have serious difficulty seeing, even when wearing glasses No 06/26/2016 5:00 PM Ying Hardin RN No [facility] 06-26-2016 Do you have serious difficulty walking or climbing stairs No 06/26/2016 5:00 PM EDT Ying Justin RN No [facility] 06-26-2016 Do you have difficul ty dressing or bathing No 06/26/2016 5:00 PM EDT Ying Justin, RN No [facility] 06-26-2016 Because of a physica l, mental, or emotional condition, do you have difficulty doing errands alone such as visiting a physician's office or shopping No 06/26/2016 5:00 PM EDT Ying Justin, [place] No [facility] Mental Status Date Assessment Result Facility 06-26-2016 Because of a physica l, mental, or emotional condition, do you have serious difficulty concentrating, remembering, or making decisions No 06/26/2016 5:00 PM EDT Ying Justin RN No [facility] Clinical Notes 03-17-2016 to 10-05-2024 Patient InstructionsBrando Shields MD - 10/05/2024 11:18 AM EDTTelephone Encounter - RANJIT Garsia - 09/20/2024 2:30 PM EDTTelephone Encounter - RANJIT Garsia - 09/20/2024 2:30 PM EDT Note Date & Type Note Facility 10-05-2024 Note Date of Procedure 10/05/2024 [place] Protocol Safety Checklist A moment of CARE [...] Procedure Medications None. Home Going Prescription None. [facility] 10-05-2024 Note Date of Procedure 10/05/2024 [place] Protocol Safety Checklist A moment of CARE [...] Procedure Medications None. Home Going Prescription None. [facility] 10-05-2024 Instructions Brando Shields MD - 10/05/2024 [...] than dabbing lightly with a tissue An yyil-mwi-bfdaeus pain reliever (i.e. Tylenol) can be used [...] If it is after hours please call [phone] which will give instructions on how to reach the eye doctor utilization management rn documented in this encounter [facility] 10-05-2024 Note Date of Procedure 10/05/2024. OCT [...] Eye Hypofluorescence. [facility] 10-05-2024 Note HNO ID: [id number] Author: BRANDO SHIELDS MD Service: ? Author [...] agree with all of its relevant components. [facility] 10-05-2024 History of Present illness Narrative Referred [...] its relevant components. documented in this encounter [facility] 09-20-2024 Telephone encounter Note Patient's new rapid exchanged (L) aid was received from [employer] (SN: [id number]). Placed on textiles printer that was being held for pt in [employer] lab. Programmed to user settings. Called pt for roll picker. She will roll picker in [place] office on 09-21-24. [place] for service [facility] Work Phone: 09-20-2024 Miscellaneous Notes Patient's new rapid exchanged (L) aid was received from [employer] (SN: [id number]). Placed on textiles printer that was being held for pt in [employer] lab. Programmed to user settings. Called pt for roll picker. She will roll picker in [place] office on 09-21-24. [place] for service documented in this encounter [facility] 09-13-2024 Note HNO ID: [id number] Author: DAVID TOMLIN OD Service: ? Author Type: RN FAMILY Type: Progress Notes Filed: 09/13/2024 11:29 Note [...] consistent clarity September 13, 2024 11:26 AM [facility] 09-07-2024 Instructions Jessica Garcia V, MD - [...] so we recommend you come with a charter bus driver. You will then be scheduled for a follow up in approximately one week. If you notice any of the following symptoms of retinal detachment, please call our office at : - Flashes of light - Increased number of floaters or large floaters - Curtains, veils, or spider web pattern over vision documented in this encounter [facility] 09-07-2024 Note HNO ID: [id number] Author: JESSICA GARCIA MD Service: ? Author [...] patient was offered a surgery/procedure at a [facility] facility. The surgeon/proceduralist and patient have discussed [...] the consent form. -F/U 1-2 weeks with correctional substance abuse counselor (Fred) I have confirmed and edited as [...] GARCIA MD September 07, 2024 3:14 PM [facility] 09-07-2024 History of Present illness Narrative The [...] patient was offered a surgery/procedure at a [facility] facility. The surgeon/proceduralist and patient have discussed [...] the consent form. -F/U 1-2 weeks with correctional substance abuse counselor (Fred) I have confirmed and edited as [...] 2024 2:49 PM documented in this encounter [facility] 09-07-2024 Note HNO ID: [id number] Author: LIZZY GALVAN OD Service: ? Author Type: RN FAMILY Type: Progress Notes Filed: 09/07/2024 15:41 Note [...] [id number] Dr. Shields following. Continue AREDS2 Lizzy aGlvan, OD I have confirmed and edited as [...] with all of its relevant components. Lizzy Galvan, OD September 07, 2024 2:49 PM [facility] 09-06-2024 History of Present illness Narrative Images from the original note were not included. [address] , [address] [facility] [place], [address] P: [phone] F: [phone] HPI Historian of HPI: patient Fantasma Lewis [...] body successfully removed. documented in this encounter [facility] 08-28-2024 Telephone encounter Note Signed- Thank you! [facility] 08-28-2024 Miscellaneous Notes Signed- Thank you! Prolia CAM pended. documented in this encounter [facility] 08-28-2024 Telephone encounter Note Prolia CAM pended. [facility] 08-24-2024 History of Present illness Narrative Fantasma J Gerda 1940 Fantasma Lewis is a 84 y.o. female presents with chief complaint of 6th poy Rt. lumpectomy (W/mamms) HPI: HPI Fantasma is 6yrs post Rt. Lumpectomy, she is [...] tablet DULoxetine (Cymbalta) [address] capsule [employer]itamin [employer]-Zinc ([employer] GUMMY PO) Take by mouth levothyroxine (Synthroid, [...] m Physical Exam Exam conducted with a manager photo present. HENT: Head: Normocephalic. Cardiovascular: Rate and [...] year for recheck documented in this encounter [facility] 08-21-2024 Telephone encounter Note Pt read seedtag message. [facility] 08-21-2024 Miscellaneous Notes Pt read mychart message. Please call patient Thank you for [...] uric acid 3.7; documented in this encounter [facility] 08-19-2024 Telephone encounter Note Please call patient Thank you for the update. The borderline calcium is likely from the water pill- will monitor with primary care provider. Not concerning :) Thank you. [facility] 08-17-2024 Telephone encounter Note Please Call patient [...] 0.3, vitamin D 47.1, uric acid 3.7; [facility] 08-14-2024 Evaluation note Diagnosis Onset Date Resolution [...] on mammogram resolved September 11, 2024 1:29pm [facility] Work Phone: 1(139) 681-862307-07-2025 Evaluation note* Diagnosis Onset Date Resolution Status Admit Date Chronic GERD acute August 14 9:38am Dyspepsia acute August 14, 2024 9:38am Irritable bowel syndrome wit h both constipation and diarrhea acute J henry2024 9:38am Nausea acute August 14, 2024 9:38am 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 September 11, 2024 1:28pm Encounter for monitoring aromatase inhibitor therapy chronic Sepu 2024 1:28pm Screening for osteoporosis chronic September 11, 2024 1:28pm 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 [facility]07-03-2025 Miscellaneous Notes* Telephone Encounter - Felicia Perry [...] up with her on cell phone at [phone] per her request. Please review and reach out to pt accordingly. Please reroute back to scheduling if further appointment needed. * Telephone Encounter - Swathi Mcclure - 08/10/2024 9:34 AM EDT Pt requesting to schedule next prolia injection. Patient has been identified by name and birthdate. Duration of symptoms: N/A Person calling: self Call patient at: on cell [phone] (home) [phone] (cell) Was an appointment scheduled: No Closing statement: Results or non-symptom based questions: Thank you for calling [facility], your call will be returned within the next business day. Swathi Morgan documented in this encounterSelect Medical [facility] [place]07-[facility]-2025 Telephone encounter Note * Telephone Encounter - Chalo Menjivar MD - 08/10/2024 2:42 PM EDT Please call patient/family Please remind patient osteoporosis treatment prolia injection is every 6months with nurse. Last prolia 02/2024. Please assist with scheduling. Thank you. [facility]07-03-2025 Telephone encounter Note* Telephone Encounter - Jewell [...] up with her on cell phone at [phone] per her request. Please review and reach out to pt accordingly. Please reroute back to scheduling if further appointment needed. [facility]07-03-2025 Telephone encounter Note* Telephone Encounter - Swathi Mcclure - 08/10/2024 9:34 AM EDT Pt requesting to schedule next prolia injection. Patient has been identified by name and birthdate. Duration of symptoms: N/A Person calling: self Call patient at: on cell [phone] (home) [phone] (cell) Was an appointment scheduled: No Closing statement: Results or non-symptom based questions: Thank you for calling [facility], your call will be returned within the next business day. Swathi Morgan [facility]05-22-2025 NoteHNO ID: [id number] Author: BRANDO SHIELDS MD Service: ? Author [...] PCO OD - Recommend YAG OD in [place]; went to Dr. Anderson in [facility] but too long wait - [...] agree with all of its relevant components. [facility]05-19-2025 Evaluation note* Diagnosis Onset Date Resolution Status [...] 9:38am Nausea acute August 14, 2024 9:38am [facility] Work Phone: 1(405) 183-446403-11-2025 NoteReminders From: Mitra Ding To: EU - Administrative; Sent: 04/18/2024 14:02:17 EDT Show up: 08/13/2025 14:01:00 EDT Subject: 18 mo kub Due Date/Time: 10/22/2025 14:02:00 EDT Reminder/Recall SCHEDULE W/ SILVIA IN 18 MO [facility]03-11-2025 NotePatient Education Nephrology Dietary Guidelines to [...] ? 8 oz (237 mL) of milk, kxqcrnu-eddropmylhnl-cqtcr milk, and calcium- fortifiedfruit juice. Calcium-fortified means [...] Spinach (cooked), rhubarb, beets, sweet potatoes, and Colombian chard. ? Peanuts. ? Potato chips, yi fries, and baked potatoes with skin on. ? Nuts and nut products. ? Chocolate. ??? If you regularly take a diuretic medicine, make sure to eat at least 1 or 2 servings of fruits or vegetables that are high in potassium each day. These include: ? Avocado. ? Banana. ? [place], prune, carrot, or tomato juice. ? Baked [...] fish oil, or vitamin B6. ??? Take migo-rqa-oohxhie and prescription medicines only as told by your health (more content not included)...[facility]03-06-2025 NoteHNO ID: [id number] Author: NIC ANDERSON MD Service: ? Author [...] all of its relevant components. Nic Anderson, [facility]03-06-2025 History of Present illness Narrative* Nic [...] components. Nic Anderson MD documented in this encounterSelect Medical [facility] [place]-27-2025 NoteDate of Procedure 04/06/2024 [place] Protocol Safety Checklist Sign In: A moment [...] follow up management communicated. Specimen containers correctly labeled.[facility]02-27-2025 NoteDate of Procedure 04/06/2024 [place] Protocol Safety Checklist Sign In: A moment [...] foreign bodies accounted for. Specimen containers correctly labeled.[facility] 04-06-2024 NoteDate of Procedure 04/06/2024. Analog Ic Design Architect Information Azul Shankar, COA . OCT Macula Interpretation Right Eye Abnormal foveal contour. Findings include Drusen, RPE Irregularity, Atrophy; Negative for Intraretinal fluid, Subretinal fluid. Left Eye Abnormal foveal contour. Findings include Drusen, RPE Irregularity, Atrophy; Negative for Intraretinal fluid, Subretinal fluid. Interval Change Right Eye Stable. Left Eye Stable.[id number] Instructions* Patient Instructions* Brando Shields MD - [...] than dabbing lightly with a tissue An ybmq-rpt-pqspami pain reliever (i.e. Tylenol) can be used [...] If it is after hours please call [phone] which will give instructions on how to reach the eye doctor utilization management rn documented in this encounterSelect [facility] [place] History of Present illness Narrative* Brando Shields [...] all ofits relevant components. documented in this encounterSelect Medical Specialty [facility] [place]02-27-2025 NoteHNO ID: [id number] Author: BRANDO SHIELDS MD Service: ? Author [...] agree with all of its relevant components. [facility]02-10-2025 Telephone encounter Note* Telephone Encounter - Nathaly [...] of its relevant components. Nic Anderson MD [facility] Work Phone: 1(732) 996-447302-10-2025 Miscellaneous Notes* Telephone Encounter - Nathaly Munguia [...] components. Nic Anderson MD documented in this encounterSelect Medical [facility]ty [facility] [place]-2025 History of Present illness Narrative* Mounika Dick, - 03/15/2024 1:00 PM EST [facility] [place] SUBJECTIVE: HPI: Fantasma Lewis is a 84 [...] consider PT vs injection in thefuture. Mounika Dick, DO Patient Active Problem List Diagnosis Asthma [...] leg edema Mild intermittent asthma without complication ([facility]/HCC) Hip pain, bilateral Osteopenia of multiple sites [...] of right breast on mammogram 09/29/2023 Migraine ([facility]) Mumps Pneumonia S/P knee replacement right partial Shingles documented in this encounterCooper County Memorial [id number] History of Present illness Narrative* Mounika Dick DO - 03/08/2024 1:00 PM EST Images from the original note were not included. [place], [place] SUBJECTIVE: HPI: Fantasma Lewis is a 84 y.o. female who presents with chief complaint of No chief complaint on file. Pt is here with complaints of right hip/back pain, also is through her right arm. This has been ongoing since January. She is unsure if she should go to her orthopedic doctor in [place] and figured she would start here. I [...] replacement right partial Shingles documented in this encounterCooper County Memorial HospitalGtreuppycb12-70-2110 Telephone encounter Note* Telephone Encounter - Chalo [...] above. Please process accordingly. Chalo Menjivar MD [facility]01-28-2025 Miscellaneous Notes* Telephone Encounter - Chalo Menjivar [...] 03/05/2023 Postmenopausal osteoporosis of multiple sites Rheumatology Cahlo Menjivar MD 08/03/2022 Pseudogout involving multiple joints Rheumatology Chalo Menjivar MD Upcoming Rheumatology Appointments - Next 365 Days Visit Type Date Time Department SAHARA INJECT PROLIA 03/06/2024 11:30 AM [facility] SAHARA EST [facility] 10/23/2024 12:20 PM [facility] CBC: Latest Ref Rng & Units [...] diagnoses: Vitamin D deficiency documented in this encounterSelect [facility] [place]-27-2025 Telephone encounter Note * Telephone Encounter - [...] SAHARA INJECT PROLIA 03/06/2024 11:30 AM [facility] SAHARA EST [facility] 10/23/2024 12:20 PM [facility] CBC: Latest Ref Rng & Units [...] Menjivar MD Assoc. diagnoses: Vitamin D deficiency [facility]01-27-2025 Telephone encounter Note* Telephone Encounter - Carly Butts MA - 03/06/2024 7:53 AM EST Pt was notified via . [facility]01-27-2025 Miscellaneous Notes* Telephone Encounter - Carly Nichole [...] D 47.1, uric acid3.7; documented in this encounterSelect Medical Specialty [facility] [place]01-26-2025 Telephone encounter Note * Telephone Encounter - [...] crp 0.3, vitamin D 47.1, uric acid3.7; [facility]12-20-2024 History of Present illness Narrative* Mounika Dick, DO - 01/28/2024 9:40 AM EST Images from the original note were not included. [place], [place] SUBJECTIVE: HPI: Fantasma Lewis is a [...] replacement right partial Shingles documented in this encounterCooper County Memorial [id number] History of Present illness Narrative* Summer M Workman, CRISSY - 01/26/2024 2:55 PM EST Images from the original note were not included. [address] , [address] [facility] [place], [address] P: [phone] F: [phone] [facility] Historian of [facility]: patient Fantasma Lewis is a 83 y.o. [...] URINARY TRACT INFECTION (HTRX) documented in this encounterCooper County Memorial [id number] Instructions* Patient Instructions* Brando Shields MD - [...] than dabbing lightly with a tissue An uzsq-xip-iwuifko pain reliever (i.e. Tylenol) can be used [...] If it is after hours please call [phone] which will give instructions on how to reach the eye doctor utilization management rn documented in this encounterSelect Medical [facility]ty [facility] [place]12-12-2024 NoteDate of Procedure 01/20/2024 [place] Protocol Safety Checklist Sign In: A moment [...] for, Post-procedure follow up management communicated. No specimens.[facility]12-12-2024 NoteDate of Procedure 01/20/2024 [place] Protocol Safety Checklist Sign In: A moment [...] follow up management communicated. Specimen containers correctly labeled.[facility]12-12-2024 NoteDate of Procedure 01/20/2024. Analog Ic Design Architect Information Senior Clinical Data Manager: Dena. Interpretation Right Eye Abnormal foveal contour. Findings include Drusen, RPE Irregularity, Atrophy; Negative for Intraretinal fluid, Subretinal fluid. Left Eye Abnormal foveal contour. Findings include Drusen, RPE Irregularity, Atrophy; Negative for Intraretinal fluid, Subretinal fluid. Interval Change Right Eye Stable. Left Eye Stable.[id number] History of Present illness Narrative* Brando Shields [...] both eyes - S/p DMEK both eyes ([place]) - pred daily OU - Continue f/u [...] all ofits relevant components. documented in this encounterSelect Medical [facility]ty [facility] [place]12-12-2024 NoteHNO ID: [id number] Author: BRANDO SHIELDS MD Service: ? Author [...] agree with all of its relevant components. [facility]12-04-2024 History of Present illness Narrative* Jah Sutherland, HEALTH CARE SPECIALIST - 01/12/2024 12:50 PM EST Images from the original note were not included. [address] , [address] [facility] [place], [address] P: [phone] F: [phone] HPI Historian of HPI: patient Fantasma Lewis [...] 16 g; Refill: 0 documented in this encounterCooper County Memorial [id number] History of Present illness Narrative* Irlanda Weaver [...] 12/03/2023 10:14 AM EDT documented in this encounterCooper County Memorial HospitalHixmlzefue37-74-2065 History of Present illness Narrative* Chalo Menjivar [...] missed/intolerant of weekly fosamax for abnormal BMD/on penitentiary arimidex, see oncology, follow up with PCP/ENT [...] food, hctz. Was able to travel to [place] last year. [facility] 09/01/22 bmd osteopenia/stable 10/2022 +COVID19 [...] missed/intolerant of weekly fosamax for abnormal BMD/on penitentiary arimidex, see oncology, follow up with PCP/ENT [...] Not taking calcium. 11/2021 fell going to [employer] football game, chipped a tooth. Had kidney stone 3weeks afterwards. tibial psoriasis. No recent oral steroids. 04/14/22 eye exam.02/23/22 s/p right eye excisio corneal lesion. limited exercise due to pain. Using cane. Better withtwo tylenol. Occasional more if traveling. Hard to take on and off rings swelling. Chronic current pain in hands, wrists, feet, knees, back, hips. Reports pain 4/10. Has minimal AM stiffness. Back from wedding [place]. Will have another family wedding in [place]. COVID vaccine 03/08/20, 03/29/20, 12/25/20, 01/23/22. Feels [...] see neurosurgery, weekly fosamax for abnormal BMD/on penitentiary arimidex, patient will notify office if interested [...] 11/24/21:2weeks ago fell/tripped on parking lot to [employer] outside on L shoulder, L wrist, chipped [...] Taking tylenol 2+ per day. Reports pain 05/18. minimal AM stiffness. COVID vaccine Pfizer 03/08/20,03/29/20k [...] see neurosurgery, weekly fosamax for abnormal BMD/on penitentiary arimidex, see oncology, follow up with PCP/ENT [...] low impact weightbearing exercise, calcium citrate 12/09/20:Had [employer] COVID vaccines 03/08/20 and 03/29/20. Misses kendrick. Taking arimidex. S/p R corneal transplant 09/09/20 [...] see neurosurgery, weekly fosamax for abnormal BMD/on penitentiary arimidex, see oncology, follow up with PCP/ENT [...] dryer moved upstairs. Dropped 10bags off at [facility]. Joint pain better with mobic. Has been [...] see neurosurgery, weekly fosamax for abnormal BMD/on penitentiary arimidex, see oncology, follow up with PCP/ENT [...] cream, has not tried yet. Reports pain 06/17. Minimal AM stiffness. Overall mildly uncomfortable but happy with rheum care. No falls/fx/trauma/illness/oral sores/rash/hairloss/jaw pa in/dysphagia/epistaxis/hemoptysis since last visit. No adverse effects with meds. No other complaints. Patient denies fever, chills, cp, dyspnea, nausea, vomiting, night sweats, scalp tenderness, visual changes, murcia, bowel/bladder changes, weight changes or other complaints. Last visit supportive care, see neurosurgery, weekly fosamax for abnormal BMD/on penitentiary arimidex,see oncology, follow up with PCP/ENT for [...] neurosurgery, may consult bisphosphonates if abnormal BMD/on penitentiary arimidex, see oncology, follow up with PCP/ENT [...] exam soon. Lidocaine ointment denies. Reports pain 5/10. Minimal Am stiffness. Chronic back pain, surgery [...] Had injections in the past. Reports pain 04/17. Minimal AM stiffness. Overall mildly uncomfortable but [...] degeneration. Due for eye exam. Reports pain 04/17. Minimal AM stiffness. overall mildly uncomfortable but [...] lower leg. Minimal AM stiffness. Back from [employer] [place] and visiting [employer]. Has two spots of psoriasis on R [...] heat/otc arthritis/tylenol, start weightbearing exercise, calcium citrate 02/25/:reports all over 06/17 - took two tylenol. Minimal AM stiffness. [...] citrate 08/22/14:reports sciatic pain to bilat legs 7/10. Minimal AM stiffness. mobic 15mg daily helps. [...] winter. Better with sunlight. Saw derm in [place] but no change. 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 (socially only) Alcohol Use: Yes (socially) TESTS: 07/13/23 normal vitamin D 46.2; 06/03/23 eye exam age related macular degeneration treated with avastin, fuch's dystrophy, pseudophakia, dry eyes syndrome. 06/03/23 normal vitamin D 60.7; 03/05/23 low vitamin D 28.1;high glucose 137;normal cbc, cmp, esr 5, crp 0.4; [facility] 09/01/22 bmd osteopenia/stable L1-4 1.298g/cm2, [...] 8, crp 0.9, vitamin D 39.3, vitamin g25-1796, uric acid 4.1; formerly [facility] 08/26/20 bmd osteopenia/improved spine/decreased forearm L1-4 [...] ast 14, alt 8, uric acid 4.5 [facility] 08/19/18 osteopenia L1-4 1.242g/cm2, tscore 1.8, zscore 4.3;L fem neck 0.796g/cm2, tscore-0.5, zscore1.7;L total hip 0.966g/cm2, tscore0,zscore1.7;R fem neck 0.802g/cm2, tscore-0.4, zscore1.9;L forearm 0.617g/cm2, tscore-1.2, zscore1.6; 04/21/18 high vitamin b12>2000;NL cbc, cmp, esr 13 (26), crp 0.6 (1.4), uric acid 3.9, vitamin D 39.8; 07/22/17 high esr 26 (14), crp 1.4 (1.6);normal rest of cbc, cmp, uric acid 4.6, vitamin D 54.2; [facility] note Hernan Lyons, OD 10/05/16: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 Cataract OU. Posterior vitreal detachment OU. F/u 6months complete eye exam with OCT-Rtesting. 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 Dropped 10bags off at [facility]. Joint pain better with mobic. Had [employer] COVID vaccines 03/08/20 and 03/29/20. fosamax. Taking arimidex. 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 S/p L li thotripsy. Waiting to pass renal stone. Her 12y/o dog . history 13 episodes of nausea/vomiting/diarrhea. Saw GI, increased prilosec 40mg daily and recent scope showed diverticula. Tibial pain. Last year fell/tripped on parking lot to [employer] outside on L shoulder, L wrist, chipped tooth, broke glasses. Did not have her cane.OFF plaquenil 07/22/21. 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 Pain Worse with cold, rainy weather. Taking tylenol 2+ per day. due for labs. Due for bmd after 08/26/22. missed fosamax/seeing GI for GI upset/possible IBS, Not taking calcium. 11/2021 fell going to [employer], chipped a tooth. Had kidney stone 3weeks afterwards. tibial psoriasis.04/14/22 eye exam. 02/23/22 s/p right eye excisio corneal lesion. Occasional more if traveling. Hard to take on and off rings swelling. Back from [place]. Was able to travel to [place] last year. [facility] 09/01/22 bmd osteopenia/stable 10/2022 +COVID19 infection could [...] missed/intolerant of weekly fosamax for abnormal BMD/on penitentiary arimidex, see oncology, follow up with PCP/ENT [...] release for bone mineral density results from formerly [facility] 02/10/12=20mg kenalog R trochanteric bursa in [...] more than 50% of the phone or pghc-bw-osae time in counseling, explanation of diagnosis, and planning of further management, I spent a total of 30 minutes on the date of the service which included preparing to talk with the patient, ltrw-cv-mitwobpvguw care, completing clinical documentation, obtaining and/or reviewing [...] had the pleasure of seeing your patient, for RA, joint pain. Please feel free to contact my office if you need additional information or have further questions or concerns. Thank you for allowing me to participate in the care of your patient. Chalo Menjivar MD cc Robert Crocker II, MD;Dr.Paul Leroy [id number] [facility] [address] documented in this encounterSelect Medical Specialty [facility] [place]10-21-2024 NoteHNO ID: [id number] Author: CHALO MENJIVAR MD Service: ? Author [...] missed/intolerant of weekly fosamax for abnormal BMD/on penitentiary arimidex, see oncology, follow up with PCP/ENT [...] food, hctz. Was able to travel to [place] last year. [facility] 09/01/22 bmd osteopenia/stable 10/2022 +COVID19 [...] missed/intolerant of weekly fosamax for abnormal BMD/on penitentiary arimidex, see oncology, follow up with PCP/ENT [...] prn lidocaine if approved, (more content not included)...[facility]10-20-2024 Instructions* Patient Instructions* Chalo Menjivar MD - [...] 137;normal cbc, cmp, esr 5, crp 0.4; [facility] 09/01/22 bmd osteopenia/stable BONE MINERAL DENSITY PATIENT [...] your usual activities immediately. documented in this encounterSelect Medical Specialty [facility] [place]10-03-2024 NoteDate of Procedure 11/11/2023. Analog Ic Design Architect Information Senior Clinical Data Manager: af. Interpretation Right Eye Abnormal foveal contour. Findings include Drusen, RPE Irregularity, Atrophy; Negative for Intraretinal fluid, Subretinal fluid. Left Eye Abnormal foveal contour. Findings include Drusen, RPE Irregularity, Atrophy; Negative for Intraretinal fluid, Subretinal fluid. Interval Change Right Eye Stable. Left Eye Stable.[id number] NoteDate of Procedure 11/11/2023 [place] Protocol Safety Checklist Sign In: A moment [...] foreign bodies accounted for. Specimen containers correctly labeled.[facility] 11-11-2023 NoteDate of Procedure 11/11/2023 [place] Protocol Safety Checklist Sign In: A moment [...] follow up management communicated. Specimen containers correctly labeled.[facility]10-03-2024 Instructions* Patient Instructions* Brando Shields MD - [...] than dabbing lightly with a tissue An mnzq-ulb-myfopjv pain reliever (i.e. Tylenol) can be used [...] If it is after hours please call [phone] which will give instructions on how to reach the eye doctor utilization management rn documented in this encounterSelect Medical Specialty [facility] [place]10-03-2024 NoteHNO ID: [id number] Author: BRANDO SHIELDS MD Service: ? Author [...] agree with all of its relevant components. [facility]10-03-2024 History of Present illness Narrative* Brando Shields [...] all ofits relevant components. documented in this encounterSelect Medical Specialty [facility] [place]09-25-2024 History of Present illness Narrative* Irlanda Weaver MA - 11/03/2023 1:00 PM EDT Patient was in today for a two week follow up on new hearing aids. Patient feels she is hearing well. She did not ask for any adjustments. She did mention that she still has trouble hearing on landline. I advised lifting the textiles printer to deliver sound into hearing aid. Patient [...] in approx one year. documented in this encounterCooper County Memorial [id number] History of Present illness Narrative* Mounika Dick DO - 11/02/2023 10:40 AM EDT Images from the original note were not included. Flowsheet Row Office Visit from 11/02/2023 in [facility] with Mounika Dick DO Hospital Information Discharged To: Home Setting Discharge Hospital [facility] Diagnosis UTI Discharge Date 10/27/23 Engagement [...] 10,000 colonies/mL URINE CULTURE, ROUTINE Performed at: [facility] URINE CULTURE, ROUTINE [address] [place], [place] [id number] URINE CULTURE, ROUTINE Route Jumper: Kev Choi PhD, Phone: [phone] C. DIFFICILE PCR Collection Time: 11/01/23 7:00 [...] E COLI SHIGA TOXIN EIA Performed at: [facility] E COLI SHIGA TOXIN EIA [address] [place], [place] [id number] E COLI SHIGA TOXIN EIA Route Jumper: Kev Choi PhD, Phone: [phone] ASSESSMENT AND PLAN: Assessment/Plan Diagnoses and all [...] deficiency Overweight (BMI 25.0-29.9) SVT (supraventricular tachycardia) ([facility]) Vertigo Past Medical History: Diagnosis Date Appendicitis Arthritis Asthma (CMS/HCC) Bronchitis Cataract Chicken pox Goiter ([facility]/HCC) Gout History of back surgery History of breast biopsy left breast, benign History of colonoscopy 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 Hypothyroid ([facility]/HCC) Kidney stone removed Measles Microcalcification of right breast on mammogram 09/29/2023 Migraine ([facility]/HCC) Mumps Pneumonia S/P knee replacement right partial Shingles documented in this encounterCooper County Memorial [id number] History of Present illness Narrative* CRISSY Caballero [...] (Cymbalta) [address] capsule Elderberry-Vitamin C-Zinc (Oceanlinx GUMMY PO) Oral levothyroxine (SYNTHROID) 75 mcg, Oral, [...] URINARY TRACT INFECTION (HTRX) documented in this [facility]09-10-2024 Telephone encounter Note* Telephone Encounter - Gisell Vizcarra - 10/19/2023 12:50 PM EDT Spoke to pt over the phone, pt verbally understood results and had no questions during time of call. [facility] [id number] Miscellaneous Notes* Telephone Encounter - Gisell Vizcarra [...] She does needan antibiotic. documented in this encounterCooper County Memorial [id number] Telephone encounter Note* Telephone Encounter - Jah Sutherland NP - 10/19/2023 12:00 PM EDT Please notify patient that her urine culture is negative and she does not have a UTI. She does needan antibiotic. [facility] [id number] History of Present illness Narrative* Jah Sutherland NP - 10/18/2023 10:50 AM EDT HPI: Historian of HPI: patient Fantasma Lewis is a 83 y.o. female who presents today to the Urgent Care with the following complaints and denials which have been present for 2 week(s) I have IBS. Wednesday I went to the [facility] and got the azo strips and it was positive. I havent felt good. Admits to vomiting x1 Hx of kidney stones many years ago Admits to pressure and urinary frequency when urinating Admits that she went to [facility] last Wednesday and they gave her keflex [...] Protein: Negative PH: 6.0 Blood: Negative Specific Amberson: 1.020 Ketone: Negative Glucose: Negative Neg Neg [...] frequency and burning. She was seen at [facility] last week and treated with Keflex. [...] 14 capsule; Refill: 0 documented in this encounterCooper County Memorial [id number] Telephone encounter Note* Telephone Encounter - Chalo [...] above. Please process accordingly. Chalo Menjivar MD [facility]09-05-2024 Miscellaneous Notes* Telephone Encounter - Chalo Menjivar [...] 365 Days Visit Type Date Time Department [facility] 11/29/2023 12:00 PM [facility] CBC: None on file in the [...] Lab Orders None ...........................................0 documented in this encounterSelect [facility] [place] Telephone encounter Note * Telephone Encounter - [...] 365 Days Visit Type Date Time Department [facility] 11/29/2023 12:00 PM [facility] CBC: None on file in the [...] Future (Single Instance) Lab Orders None ...........................................0 [facility]08-28-2024 History of Present illness Narrative* Irlanda Weaver MA - 10/06/2023 3:00 PM EDT Patient was in today to be fit with [place] [employer] C&G T 3IX hearing aids purchased using her [employer] benefit. Patient has experience with hearing aids. Patient aids were coupled to NoRedInk receivers with 8 tulip domes. Patient felt [...] two week follow up. documented in this encounterCooper County Memorial [id number] History of Present illness Narrative* Mounika Dick DO - 09/29/2023 10:20 AM EDT Images [...] deficiency Overweight (BMI 25.0-29.9) SVT (supraventricular tachycardia) ([facility]) Vertigo Past Medical History: Diagnosis Date Appendicitis Arthritis Asthma ([facility]) Bronchitis Cataract Chicken pox Goiter ([facility]) Gout History of back surgery History of breast biopsy left breast, benign History of colonoscopy 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 Specimen containers correctly labeled.[facility] 09-16-2023 NoteDate of Procedure 09/16/2023 [place] Protocol Safety Checklist Sign In: A moment [...] follow up management communicated. Specimen containers correctly labeled.[facility]08-08-2024 Instructions* Patient Instructions* Brando Shields MD - [...] than dabbing lightly with a tissue An rydw-obc-xzrgisk pain reliever (i.e. Tylenol) can be used [...] If it is after hours please call [phone] which will give instructions on how to reach the eye doctor utilization management rn documented in this encounterSelect [facility] [place]08-08-2024 NoteDate of Procedure 09/16/2023. Analog Ic Design Architect Information Senior Clinical Data Manager: Dena. Interpretation Right Eye Abnormal foveal contour. Findings include Drusen, RPE Irregularity, Atrophy; Negative for Intraretinal fluid, Subretinal fluid. Left Eye Abnormal foveal contour. Findings include Drusen, RPE Irregularity, Atrophy; Negative for Intraretinal fluid, Subretinal fluid. Interval Change Right Eye Stable. Left Eye Stable.[id number] History of Present illness Narrative* Brando Shields [...] all ofits relevant components. documented in this encounterSelect [facility] [place]07-[facility]-2024 Telephone encounter Note * Telephone Encounter - [...] for anti-vegf OD agree as per above [facility] Work Phone: [phone] 306-853907-25-2024 Miscellaneous Notes* Telephone Encounter - Marroquin Miles Shirley - 09/02/2023 3:50 PM EDT Pharmacy electronically [...] agree as per above documented in this encounterSelect [facility] [place]06-27-2024 NoteDate of Procedure 08/05/2023 [place] Protocol Safety Checklist Sign In: A moment [...] follow up management communicated. Specimen containers correctly labeled.[facility]06-27-2024 NoteDate of Procedure 08/05/2023 [place] Protocol Safety Checklist Sign In: A moment [...] foreign bodies accounted for. Specimen containers correctly labeled.[facility] 08-05-2023 Instructions* Patient Instructions* Brando Shields MD [...] than dabbing lightly with a tissue An mezl-alp-kgopguc pain reliever (i.e. Tylenol) can be used [...] If it is after hours please call [phone] which will give instructions on how to reach the eye doctor utilization management rn documented in this encounterSelect [facility] [place]06-27-2024 NoteDate of Procedure 08/05/2023. Analog Ic Design Architect Information Senior Clinical Data Manager: Dena. Interpretation Right Eye Abnormal foveal contour. Findings include Drusen, RPE Irregularity, Atrophy; Negative for Intraretinal fluid, Subretinal fluid. Left Eye Abnormal foveal contour. Findings include Drusen, RPE Irregularity, Atrophy; Negative for Intraretinal fluid, Subretinal fluid. Interval Change Right Eye Stable. Left Eye Stable.[id number] History of Present illness Narrative* Brando Shields [...] all ofits relevant components. documented in this encounterSelect [facility] [place]06-10-2024 Telephone encounter Note * Telephone Encounter - Carly Butts MA - 07/19/2023 8:06 AM EDT Pt was notified via . [facility]06-10-2024 Miscellaneous Notes* Telephone Encounter - Carly Nichole [...] esr 5, crp 0.4; documented in this encounterSelect [facility] [place]06-08-2024 Telephone encounter Note * Telephone Encounter - Chalo Menjivar MD - 07/17/2023 1:32 PM EDT Please Call patient if MyChart note not read to review results/released to My Chart if tests completed at [facility]: Normal vitamin D will monitor. Take over [...] 137;normal cbc, cmp, esr 5, crp 0.4; [facility]05-23-2024 NoteDate of Procedure 07/01/2023. Analog Ic Design Architect Information Senior Clinical Data Manager: JERE. Interpretation Right Eye Abnormal foveal contour. Findings include Drusen, RPE Irregularity, Atrophy; Negative for Intraretinal fluid, Subretinal fluid. Left Eye Abnormal foveal contour. Findings include Drusen, RPE Irregularity, Atrophy; Negative for Intraretinal fluid, Subretinal fluid. Interval Change Right Eye Better. Left Eye Better.[id number] NoteDate of Procedure 07/01/2023 [place] Protocol Safety Checklist Sign In: A moment [...] foreign bodies accounted for. Specimen containers correctly labeled.[facility] 07-01-2023 NoteDate of Procedure 07/01/2023 [place] Protocol Safety Checklist Sign In: A moment [...] follow up management communicated. Specimen containers correctly labeled.[facility]05-23-2024 Instructions* Patient Instructions* Brando Shields MD - [...] than dabbing lightly with a tissue An fojf-nul-qnngemr pain reliever (i.e. Tylenol) can be used [...] If it is after hours please call [phone] which will give instructions on how to reach the eye doctor utilization management rn documented in this encounterSelect [facility] [place]-2024 History of Present illness Narrative* Brando Shields [...] all ofits relevant components. documented in this encounterSelect [facility] [place]05-15-2024 Telephone encounter Note * Telephone Encounter - [...] above. Please process accordingly. Chalo Menjivar MD [facility]05-15-2024 Miscellaneous Notes* Telephone Encounter - Chalo Menjivar [...] SAHARA INJECT PROLIA 09/03/2023 1:30 PM [facility] 11/29/2023 12:00 PM [facility] CBC: Latest Ref Rng & Units [...] 23, 2023 8:25 AM documented in this encounterSelect [facility] [place]05-15-2024 Telephone encounter Note * Telephone Encounter - [...] SAHARA INJECT PROLIA 09/03/2023 1:30 PM [facility] 11/29/2023 12:00 PM [facility] CBC: Latest Ref Rng & Units [...] Aguero MA June 23, 2023 8:25 AM [facility]04-29-2024 Telephone encounter Note* Telephone Encounter - Erick Arredondo MA - 06/07/2023 7:45 AM EDT patient has viewed the seedtag message per [facility]. [facility]04-29-2024 Miscellaneous Notes* Telephone Encounter - Erick Arredondo MA - 06/07/2023 7:45 AM EDT patient has viewed the seedtag message per [facility]. * Telephone Encounter - Chalo Menjivar MD - 06/05/2023 9:15 PM EDT Please Call patient if Qual [place] note not read to review results/released to My Chart if tests completed at [facility]: Improved/ normal vitamin D will monitor. Take [...] esr 5, crp 0.4; documented in this encounterSelect [facility] [place]04-27-2024 Telephone encounter Note * Telephone Encounter - Chalo Menjivar MD - 06/05/2023 9:15 PM EDT Please Call patient if MyChart note not read to review results/released to My Chart if tests completed at [facility]: Improved/ normal vitamin D will monitor. Take [...] 137;normal cbc, cmp, esr 5, crp 0.4; [facility]04-25-2024 NoteDate of Procedure 06/03/2023 [place] Protocol Safety Checklist Sign In: A moment [...] follow up management communicated. Specimen containers correctly labeled.[facility]04-25-2024 NoteDate of Procedure 06/03/2023 [place] Protocol Safety Checklist Sign In: A moment [...] foreign bodies accounted for. Specimen containers correctly labeled.[facility] 06-03-2023 Instructions* Patient Instructions* Brando Shields MD [...] than dabbing lightly with a tissue An sqbb-zph-blbctyq pain reliever (i.e. Tylenol) can be used [...] If it is after hours please call [phone] which will give instructions on how to reach the eye doctor utilization management rn documented in this encounterSelect [facility] [place]04-25-2024 NoteDate of Procedure 06/03/2023. Analog Ic Design Architect Information Senior Clinical Data Manager: CD. Interpretation Right Eye Abnormal foveal contour. Findings include Intraretinal fluid, Drusen, RPE Irregularity, Atrophy; Negative for Subretinal fluid. Left Eye Abnormal foveal contour. Findings include Subretinal fluid, Drusen, RPE Irregularity, Atrophy; Negative for Intraretinal fluid. Interval Change Right Eye Better. Left Eye Worse.[id number] History of Present illness Narrative* Brando Shields [...] S/p DMEK both eyes (Jose Miguelhe) - pred daily OU Pseudophakia, both eyes [...] all ofits relevant components. documented in this encounterSelect [facility] [place]03-21-2024 History of Present illness Narrative* Nic Anderson [...] components. Nic Anderson MD documented in this encounterSelect [facility] [place]11-26-2023 Miscellaneous Notes* Telephone Encounter - Paulo Jacob [...] to the ED. Provided eye clinic number [phone] or [phone]. Reminded pt they may call back at any time Patient verbalized understanding. Paulo Jacob MD documented in this encounterSelect [facility] [place]10-[facility]-2023 History of Present illness Narrative* Afshin Rocha [...] weight loss were advocated. [facility] Work Phone: [phone]) 464-749310-31-2023 Instructions* Patient Instructions* Karime Monet CMA - [...] Fall Prevention Education Given documented in this encounterLake[facility] Work Phone: [phone]) 600-729408-07-2023 Miscellaneous Notes* Telephone Encounter - Shanell Salinas [...] My Chart if tests completed at [facility]: Bone mineral density shows osteopenia/stable. Happy to further review and discuss at follow up visit. Continue rest of treatment plan per instructions at last office visit. Thank you. [facility] 09/01/22 bmd osteopenia/stable L1-4 1.298g/cm2, tscore 2.3, zscore 5; Left fem neck 0.795g/cm2, tscore-0.5, zscore 1.8; Left total hip 0.909g/cm2, tscore-0.3, zscore1.8; Right fem nec 0.796g/cm2, tscore-0.5, zscore1.8; Right total hip 0.920g/cm2, tscore-0., zscore1.9; Left 1/3 forearm 0.606g/cm2, tscore-1.3, zscore1.9; 08/03/22 normal cbc, cmp, esr 8(8), crp 0.3 (0.9), vitamin D 41.2, vitamin b12- 1551, uric acid 3.1; --- formerly [facility] 08/26/20 bmd osteopenia/improved spine/decreased forearm L1-4 1.348g/cm2, tscore 2.7, zscore 5.3;improved by 8.4% prior L fem neck 0.789g/cm2, tscore-0.7, zscore1.5;L total hip 0.948g/cm2, tscore0,zscore2.0;R fem neck 0.823g/cm2, tscore-0.2, zscore2.0;R total hip 0.952g/cm2, tscore0.1, zscore2.1; L 1/3 forearm 0.603g/cm2, tscore-1.4, zscore1.6;decreased -2.2% to prior imaging * Telephone Encounter - Felicia Perry LPN - 09/09/2022 3:27 PM EDT Received BMD reports from [facility]. Placed on your desk for review. documented in this encounterSelect [facility] [place]07-24-2023 Miscellaneous Notes* Telephone Encounter - Augie Jacobson - 08/31/2022 1:32 PM EDT Patient has been notified. * Telephone Encounter - Nic Anderson MD - 08/31/2022 10:15 AM EDT rx sent * Telephone Encounter - Augie Jacobson - 08/26/2022 10:29 AM EDT LV: 04/14/22 FV: 10/22/22 If you want patient to continue with steroid drop she will need a refill [facility] [place]. Please advise. Nic Anderson MD filed at [...] follow-up 6 months mrx iop ou confocal ledger poster ou poss keratectomy OS in future once [...] components. Nic Anderson MD documented in this encounterSelect Medical [facility]ty [facility] [place]06-28-2023 Miscellaneous Notes* Telephone Encounter - Angelic Burkett - 08/05/2022 12:46 PM EDT Called and spoke to patient. She is aware of message below from Dr. Menjivar. Patient verbalized understanding. * Telephone Encounter - Chalo Menjivar MD - 08/05/2022 11:51 AM EDT Please Call patient if MyChart note not read to review results/released to My Chart if tests completed at [facility]: Improved/ stable labs and no inflammation. Continue same vitamin D intake with food. Happy to further review and discuss at follow up visit. Continue rest of treatment plan per instructions at last office visit. Thank you. 08/03/22 normal cbc, cmp, esr 8(8), crp 0.3 (0.9), vitamin D 41.2, vitamin b12- 1551, uric acid 3.1; documented in this encounterSelect [facility] [place]04-11-2023 Evaluation note* Encounter Date Diagnosis Assessment Notes Treatment Notes Treatment Clinical Notes May, Irritable bowel syndrome with both constipation and diarrhea (ICD-10 - K58.2) Continue dicyclomine 10 mg three times a day as needed Continue imodium as needed Continue probiotic as needed Rto 1 yr May, GERD (gastroesophageal reflux disease) (ICD-10 - K21.9) Continue Omeprazole 40 mg daily [facility] 03-07-2023 History of Present illness Narrative* [...] follow-up 6 months mrx iop ou confocal ledger poster ou poss keratectomy OS in future once [...] components. Nic Anderson MD documented in this encounterSelect [facility] [place]01-24-2023 Evaluation note* Encounter Date Diagnosis Assessment Notes Treatment Notes Treatment Clinical Notes Feb, GERD (gastroesophageal reflux disease) (ICD-10 - K21.9) [facility] Other 01-24-2023 History of Present illness Narrative* [...] components. Nic Anderson MD documented in this encounterSelect Medical [facility] [place]12-20-2022 Instructions* Patient Instructions* Nic Anderson MD - 01/27/2022 3:38 PM EST INSTRUCTIONS FOR SCHEDULING SURGERY: CONTACT DR. ANDERSON'S ROCKET ENGINE TESTER: MICKIERACHEL NEGRONMartín AT [phone] (9AM-5PM, WEDNESDAY-WEDNESDAY) - IF YOU RECEIVE VOICEMAIL, PLEASE LEAVE A MESSAGE AND WE WILL RETURN YOUR CALL - MY REAL ESTATE DEVELOPER WILL INFORM YOU IF ANY ADDITIONAL PREOPERATIVE [...] OR QUESTIONS, CALL DR. ANDERSON'S OFFICE AT [phone] (PRESS 0 TO BYPASS THE AUTOMATED GREETING AND BE TRANSFERRED TO AN CAST IRON DIPPER) documented in this encounterSelect Medical [facility]ty [facility] [place]12-20-2022 History of Present illness Narrative* Nic Anderson [...] components. Nic Anderson MD documented in this encounterSelect Medical Specialty [facility] [place]10-19-2022 Evaluation note* Encounter Date Diagnosis Assessment Notes Treatment Notes Treatment Clinical Notes Nov, Irritable bowel syndrome with both constipation and diarrhea (ICD-10 - K58.2) HAVE IMPROVED WITH TAKING THE MEDICATION EVERYDAY ENCOURAGED IMODIUM NEEDED. Nov, GERD (gastroesophageal reflux disease) (ICD-10 - K21.9) PATIENT WILL GET BREAKTHROUGH ABOUT ONCE A WEEK. PATIENT TO CONTINUE ON THE MEDICATION AND USE TUMS NEEDED. [facility] Other 10-11-2022 Hospital Discharge instructions Patient Education [...] include: ?Spinach. ?Rhubarb. ?Beets. ?Potato chips and yi fries. ?Nuts. If you regularly take a diuretic medicine, make sure to eat at least 1 2 fruits or vegetables high in potassium each day. These include: ?Avocado. ?Banana. ?[place], prune, carrot, or tomato juice. ?Baked potato. [...] Casseroles. Pizza. Lasagna. Frozen meals. Potato chips. Turkish fries. Summary You can reduce your risk [...] 05/22/2011 Document Revised: 05/17/2019 Document Reviewed: 01/05/2017 [employer] Patient Education 2020 [email or web address]. Follow Up Care 11/11/2021 13:26:18 With:EVENS AGUAYO, Noe Bailey, URL Address: [facility] [email or web address] [address] [address]- When:1 year Comments:W/ [facility] 08-25-2022 History of Present illness Narrative* [...] components. Nic Anderson MD documented in this encounterSelect Medical [facility] [place]08-22-2022 Miscellaneous Notes* Telephone Encounter - Augie Jacobson [...] components. Nic Anderson MD documented in this encounterSelect Medical [facility] [place]08-22-2022 Evaluation note* Encounter Date Diagnosis Assessment Notes Treatment Notes Treatment Clinical Notes Sep, Alternating constipation and diarrhea (ICD-10 - R19.8) [facility] Other 07-06-2022 Miscellaneous Notes* Telephone Encounter - Robert Crocker MD - 08/13/2021 4:08 PM EDT rx sent to [facility] Robert Crocker II, MD documented in this encounterSelect Medical Specialty [facility] [place]07-06-2022 History of Present illness Narrative* Robert Crocker MD - 08/13/2021 12:00 AM EDT [facility] [address] [facility]. [place] [address] CLINIC NOTE Department of Orthopaedics - Chantal Crocker II, M.D. NAME: FANTASMA LEWIS CLINIC NO.: [id number] DATE OF SERVICE: 08/13/2021 CHIEF COMPLAINT: Recheck [...] II, M.D. Date Dictated: 08/14/2021 Date Typed: trinh 08/14/2021 JOB# [id number] documented in this encounterSelect Medical Specialty [facility] [place]06-22-2022 History of Present illness Narrative* Robert Sullivan, MANAS - 07/30/2021 9:12 AM EDT Images from the original note were not included. SERVICE DATE: July 30, 2021 PCP: Roney Leroy DO Subjective Patient ID: Carolina is a 81 year old female. Patient presents today stating that her progressive assembler and fitter had examined her and recommended that she see a rail car welder with regard to fungus of her right [...] Relaxation;Reposition HPI recommended for podiatry evaluation from progressive assembler and fitter with regard to discolored, thickened toenail Review [...] MEDICAL HISTORY Diagnosis Date Breast cancer (HCC) 2019 Depression patient states she is not treated [...] AM Robert Sullivan DPM documented in this encounterSelect [facility]ty [facility] [place]06-14-2022 History of Present illness Narrative* Nic Anderson [...] components. Nic Anderson MD documented in this encounterSelect Medical Specialty [facility] [place]05-25-2022 Miscellaneous Notes* Telephone Encounter - Maribell Butler RN - 07/02/2021 4:23 PM EDT Patient calling with physician referral: Patient referred to Podiatry Department. Patient was seen by her Bank Boss today and was advised to be seen [...] have any questions, you can call Nurse receptionist secretary back. documented in this encounterSelect Medical Specialty [facility] [place]04-26-2022 History of Present illness Narrative* Nic Anderson [...] components. Nic Anderson MD documented in this encounterSelect [facility]ty [facility] [place]04-25-2022 Miscellaneous Notes* Telephone Encounter - Magui Maravilla [...] patient. Latesha Aguero MA documented [facility] [place] History of Present illness Narrative* Nic Anderson [...] components. Nic Anderson MD documented [facility] [place] Miscellaneous Notes* Telephone Encounter - Augie Jacobson - 04/29/2021 1:36 PM EDT Patient called and hadn't received her Ciprofloxacin. Spoke with pharmacy and called it in patient will pick it up today and get her 4 drops in this evening. 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 06/02/2016 LETICIA positive 11/25/2011 06/02/2016 documented as of this encounter (statuses as of 05/06/2021) [facility] [place] History of Past illness Narrative* Problem Noted Date Resolved Date Carrier or suspected carrier of methicillin resistant Staphylococcus aureus 03/17/2016 06/02/2016 LETICIA positive 11/25/2011 06/02/2016 documented as of this encounter (statuses as of 05/19/2021) [facility] [place] History of Past illness Narrative* Problem Noted Date Resolved Date Carrier or suspected carrier of methicillin resistant Staphylococcus aureus 03/17/2016 06/02/2016 LETICIA positive 11/25/2011 06/02/2016 documented as of this encounter (statuses as of 06/02/2021) [facility] [place] History of Past illness Narrative* Problem Noted Date Resolved Date Carrier or suspected carrier of methicillin resistant Staphylococcus aureus 03/17/2016 06/02/2016 LETICIA positive 11/25/2011 06/02/2016 documented as of this encounter (statuses as of 06/04/2021) [facility] [place] History of Past illness Narrative* Problem Noted Date Resolved Date Carrier or suspected carrier of methicillin resistant Staphylococcus aureus 03/17/2016 06/02/2016 LETICIA positive 11/25/2011 06/02/2016 documented as of this encounter (statuses as of 07/02/2021) [facility] [place] History of Past illness Narrative* Problem Noted Date Resolved Date Carrier or suspected carrier of methicillin resistant Staphylococcus aureus 03/17/2016 06/02/2016 LETICIA positive 11/25/2011 06/02/2016 documented as of this encounter (statuses as of 07/22/2021) [facility] [place] History of Past illness Narrative* Problem Noted Date Resolved Date Carrier or suspected carrier of methicillin resistant Staphylococcus aureus 03/17/2016 06/02/2016 LETICIA positive 11/25/2011 06/02/2016 documented as of this encounter (statuses as of 07/30/2021) [facility] [place] History of Past illness Narrative* Problem Noted Date Resolved Date Carrier or suspected carrier of methicillin resistant Staphylococcus aureus 03/17/2016 06/02/2016 LETICIA positive 11/25/2011 06/02/2016 documented as of this encounter (statuses as of 08/13/2021) [address]07-2017 History of Past illness Narrative* Problem Noted Date Resolved Date Carrier or suspected carrier of methicillin resistant Staphylococcus aureus 03/17/2016 06/02/2016 LETICIA positive 11/25/2011 06/02/2016 documented as of this encounter (statuses as of 08/20/2021) [address]07-2017 History of Past illness Narrative* Problem Noted Date Resolved Date Carrier or suspected carrier of methicillin resistant Staphylococcus aureus 03/17/2016 06/02/2016 LETICIA positive 11/25/2011 06/02/2016 documented as of this encounter (statuses as of 09/29/2021) [address]07-2017 History of Past illness Narrative* Problem Noted Date Resolved Date Carrier or suspected carrier of methicillin resistant Staphylococcus aureus 03/17/2016 06/02/2016 LETICIA positive 11/25/2011 06/02/2016 documented as of this encounter (statuses as of 10/02/2021) [facility] [place] History of Past illness Narrative* Problem Noted Date Resolved Date Carrier or suspected carrier of methicillin resistant Staphylococcus aureus 03/17/2016 06/02/2016 LETICIA positive 11/25/2011 06/02/2016 documented as of this encounter (statuses as of 01/27/2022) [facility] [place] History of Past illness Narrative* Problem Noted Date Resolved Date Carrier or suspected carrier of methicillin resistant Staphylococcus aureus 03/17/2016 06/02/2016 LETICIA positive 11/25/2011 06/02/2016 documented as of this encounter (statuses as of 03/03/2022) [address]07-2017 History of Past illness Narrative* Problem Noted Date Resolved Date Carrier or suspected carrier of methicillin resistant Staphylococcus aureus 03/17/2016 06/02/2016 LETICIA positive 11/25/2011 06/02/2016 documented as of this encounter (statuses as of 04/14/2022) [facility] [place] History of Past illness Narrative* Problem Noted Date Resolved Date Carrier or suspected carrier of methicillin resistant Staphylococcus aureus 03/17/2016 06/02/2016 LETICIA positive 11/25/2011 06/02/2016 documented as of this encounter (statuses as of 08/05/2022) [facility] [place] History of Past illness Narrative* Problem Noted Date Diagnosed Date Resolved Date Carrier or suspected carrier of methicillin resistant Staphylococcus aureus 03/17/2016 06/03/19 17 LETICIA positive 11/25/2011 06/02/2016 documented as of this encounter (statuses as of 08/31/2022) [facility] [place] History of Past illness Narrative* Problem Noted Date Diagnosed Date Resolved Date Carrier or suspected carrier of methicillin resistant Staphylococcus aureus 03/17/2016 06/03/19 17 LETICIA positive 11/25/2011 06/02/2016 documented as of this encounter (statuses as of 09/14/2022) [facility] [place] History of Past illness Narrative* Problem Noted Date Diagnosed Date Resolved Date Carrier or suspected carrier of methicillin resistant Staphylococcus aureus 03/17/2016 06/03/19 17 LETICIA positive 11/25/2011 06/02/2016 documented as of this encounter (statuses as of 01/03/2023) [facility] [place] History of Past illness Narrative* Problem Noted Date Diagnosed Date Resolved Date Carrier or suspected carrier of methicillin resistant Staphylococcus aureus 03/17/2016 06/03/19 17 LETICIA positive 11/25/2011 06/02/2016 documented as of this encounter (statuses as of 04/29/2023) [facility] [place] History of Past illness Narrative* Problem Noted Date Diagnosed Date Resolved Date Carrier or suspected carrier of methicillin resistant Staphylococcus aureus 03/17/2016 06/03/19 17 LETICIA positive 11/25/2011 06/02/2016 documented as of this encounter (statuses as of 04/30/2023) [facility] [place] History of Past illness Narrative* Problem Noted Date Diagnosed Date Resolved Date Carrier or suspected carrier of methicillin resistant Staphylococcus aureus 03/17/2016 06/03/19 17 LETICIA positive 11/25/2011 06/02/2016 documented as of this encounter (statuses as of 05/10/2023) [facility] Future Appointments Appointment Date:11/20/2022 11:00:00 AM Scheduled Provider:Noe LOZA MD Location:[facility] Ankit Appointment Type:URO Office Visit [facility] Ankit Evaluation note* Diagnosis Status post corneal transplant- Primary Cornea replaced by transplant History of Descemet membrane endothelial keratoplasty (DMEK) documented in this encounter [facility] note* Diagnosis Secondary osteoarthritis of multiple sites Osteoarthrosis involving, or with mention of more than one site, but not specified as generalized, multiple sites Postlaminectomy syndrome, lumbar region documented in this encounter [facility] note* Diagnosis History of Descemet membrane endothelial keratoplasty (DMEK)- Primary Pseudophakia Lens replaced by other means Retinal edema documented in this encounter [facility] note* Diagnosis History of Descemet membrane endothelial keratoplasty (DMEK)- Primary Pseudophakia Lens replaced by other means documented in this encounter [facility] note* Diagnosis Onychomycosis of right great toe- Primary [facility]* Diagnosis Status post bilateral knee replacements- Primary Knee joint replacement by other means documented [facility] this [facility]* Diagnosis Status post bilateral knee replacements- Primary Knee joint replacement by other means [facility]* Diagnosis Anterior capsular opacification- Primary Pseudophakia Lens replaced by other means History of Descemet membrane endothelial keratoplasty (DMEK) Intermediate stage nonexudative age-related macular degeneration of both eyes Retained lens material following cataract surgery of left eye Cataract fragments in eye following surgery [facility]* Diagnosis 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 Pseudophakia Lens replaced by other means PCO (posterior capsular opacification), bilateral After-cataract, unspecified History of Descemet membrane endothelial keratoplasty (DMEK) documented [facility] this [facility]* Diagnosis 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 [facility]* Diagnosis 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 History of Descemet membrane endothelial keratoplasty (DMEK) Pseudophakia Lens replaced by other means documented [facility] noteNo [facility] [employer] Other Evaluation note* Diagnosis Vertigo- Primary Dizziness and giddiness SVT (supraventricular tachycardia) Other specified cardiac dysrhythmias Overweight (BMI 25.0-29.9) Overweight Essential hypertension Unspecified essential hypertension documented in this encounter [facility] Work Phone: Evaluation note* Diagnosis History of Descemet membrane endothelial keratoplasty (DMEK)- Primary 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)- Primary Pseudophakia Lens replaced by other means 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 Dry eye syndrome of both eyes documented [facility]* Diagnosis Secondary osteoarthritis of multiple sites Osteoarthrosis involving, or with mention of more than one site, but not specified as generalized, multiple sites Postlaminectomy syndrome, lumbar region documented [facility]* Diagnosis 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) documented [facility]* Diagnosis Senile osteoporosis- Primary Personal history of other drug therapy documented [facility]* Diagnosis Onset Date Resolution Status 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 Encounter for monitoring aromatase inhibitor therapy chronic Screening for osteoporosis c hronic Microcalcification of right breast on mammogram [facility] Work Phone: Evaluation note* Diagnosis Multiple joint pain Pain in joint, multiple sites Secondary osteoarthritis of multiple sites Osteoarthrosis involving, or with mention of more than one site, but not specified as generalized, multiple sites documented [facility] this [facility]* Diagnosis Status post bilateral knee replacements Knee joint replacement by other means documented in this encounter 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* Diagnosis Pseudogout involving multiple joints- Primary [...] other drug therapy documented [facility]* Diagnosis Sensorineural hearing loss, bilateral- Primary [facility] Onset Date Resolution Status Alternating constipation and diarrhea acute Chronic GERD acute Nausea acute [facility] Work Phone: Evaluation note* Diagnosis Bronchitis- Primary Bronchitis, not specified as acute or chronic Acute cough [facility]* Diagnosis 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)- Primary Pseudophakia Lens replaced by other means Dry eye syndrome of both eyes History of Descemet membrane endothelial keratoplasty (DMEK) Posterior vitreous detachment of both eyes Vitreous degeneration PCO (posterior capsular opacification), bilateral After-cataract, unspecified documented [facility]* Diagnosis Routine general medical examination at health care facility- Primary Routine general medical examination at a health care facility documented [facility] this encounter [facility]* Diagnosis Polyuria- Primary Hypertension, unspecified type (CMS/HCC) Hypothyroidism, unspecified type (CMS/HCC) Primary hypertension (CMS/HCC) Unspecified essential hypertension Supraventricular tachycardia, unspecified (CMS/HCC) Atherosclerosis of aorta (CMS/HCC) Atherosclerosis of aorta documented in this encounter [facility]* Diagnosis Sensorineural hearing loss, bilateral- Primary documented in this encounter [facility]* Diagnosis Acute cystitis without hematuria- Primary Urinary frequency documented in this encounter [facility]* Diagnosis Generalized abdominal pain- Primary Abdominal pain, generalized Nausea and vomiting, unspecified vomiting type Diarrhea, unspecified type Flank pain Abdominal pain, unspecified site documented in this encounter [facility]* Diagnosis Acute cystitis without hematuria- Primary documented in this encounter [facility]* Diagnosis Greater trochanteric bursitis of right hip- Primary Pain of right upper extremity documented in this encounter [facility]* Diagnosis Acute cystitis without hematuria- Primary Dysuria documented in this encounter [facility]* Diagnosis Postmenopausal osteoporosis of multiple sites- Primary Vitamin D deficiency Unspecified vitamin D deficiency Hypocalcemia [facility] Diagnosis Senile osteoporosis- Primary Personal history of other drug therapy [facility] [place] Diagnosis Multiple joint pain Pain in joint, multiple sites Secondary osteoarthritis of multiple sites Osteoarthrosis involving, or with mention of more than one site, but not specified as generalized, multiple sites Postlaminectomy syndrome, lumbar region [facility] [place]* Diagnosis Routine general medical examination at health care facility- Primary Routine general medical examination at a health care facility Mild intermittent asthma without complication (CMS/HCC) Hypertension, unspecified type (CMS/HCC) Hypothyroidism, unspecified type (CMS/HCC) Hyperlipidemia, unspecified hyperlipidemia type (CMS/HCC) documented in this encounter [facility]* Diagnosis Impingement of right shoulder- Primary Greater trochanteric bursitis of right hip documented in this encounter [facility]* Diagnosis Impingement of right shoulder- Primary Right hip pain Pain in joint, pelvic region and thigh Greater trochanteric bursitis of right hip Impingement of right shoulder Right hip pain Pain in joint, pelvic region and thigh documented in this encounter [facility]* Diagnosis 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* Diagnosis Onset Date Resolution Status Admit Date Alternating constipation and diarrhea acute May 11, 2024 10:55am Chronic GERD acute May 11, 025 10:55am Dyspepsia acute May 11 10:55am Nausea acute May 11 10:55am [facility] Work Phone: Evaluation note* Diagnosis Personal history of malignant neoplasm of breast- Primary [facility]* Diagnosis Postmenopausal osteoporosis of multiple sites- Primary Personal history of other medical treatment PCO (posterior capsular opacification), right- Primary After-cataract, unspecified [facility]* Diagnosis Senile osteoporosis- Primary Personal history of other drug therapy PCO (posterior capsular opacification), right- Primary After-cataract, unspecified documented [facility]* Diagnosis PCO (posterior capsular opacification), right- Primary After-cataract, unspecified Pseudophakia Lens replaced by other means 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) History of Descemet membrane endothelial keratoplasty (DMEK) documented [facility] this [facility]* Diagnosis Foreign body of right ear, initial encounter [facility] Diagnosis 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)- Primary Dry eye syndrome of both eyes Pseudophakia of both eyes Lens replaced by other means History of YAG laser capsulotomy of lens, right Posterior vitreous detachment of both eyes Vitreous degeneration documented in this encounter [facility] general Narrative - Reported* Type Description Date Medical History kidney stones Medical History osteoarthritis Medical History migraine headache Medical History hypertension Medical History breast cancer Surgical History laminectomy Surgical History back surgery Surgical History knee surgery right Surgical History kidney stone Surgical History appendectomy Hospitalization History see surgical hx [facility] Other History general Narrative - Reported* Type Description Date Medical History kidney stones Medical History osteoarthritis Medical History migraine headache Medical History hypertension Medical History breast cancer Surgical History laminectomy Surgical History back surgery Surgical History knee surgery right Surgical History kidney stone Surgical History appendectomy 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 Hospitalization History see surgical hx [facility] Other History of Present illness Narrative* CRISSY [...] DR capsule ergocalciferol (Vitamin D2) 1.25 MG (23302 UT) capsule TAKE 1 CAPSULE TWICE A WEEK (MON & ) WITH FOOD FOR 8 WEEKS [...] current healthcare providers: Patient Care Team: Roney J Rad, DO as PCP - General (Family Medicine) [...] Yes Vision Screening: Yes, 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 sees regular 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 supervisor/correctional substance abuse counselor Hearing Screening: Yes, uses hearing aids Cognitive Screening Three Word Registration: Village, Kitchen, Baby Clock Drawing: Normal Clock - 2 Three Word Recall: All 3 words correct - 3 Total Score (0-5 Points): 5 Pain Assessment Pain Score: 3 Advance Care Planning Do you have a living will?: Yes Do you have a medical power of securities attorney?: Yes Who is your medical power of securities attorney?: alicia Crowder Daughter Objective BP 138/72 [...] leg edema Mild intermittent asthma without complication ([facility]) Hip pain, bilateral Osteopenia of multiple sites Pain in toe of right foot PCO (posterior capsular opacification), bilateral Postlaminectomy syndrome, lumbar region Pre-operative examination Primary osteoarthritis of both knees Pseudogout involving multiple joints Pseudophakia Secondary osteoarthritis of multiple sites Status post bilateral knee replacements Vitamin D deficiency Overweight (BMI 25.0-29.9) SVT (supraventricular tachycardia) ([facility]) Vertigo Continue with care team regarding the [...] family history were discussed. documented in this encounterNOMS HealthcareHistory of Present illness Narrative * Carolyne [...] tablet 3 cholecalciferol (Vitamin D-3) 50 MCG (1999 UT) capsule Take 2,000 Units by mouth Daily denosumab (Prolia) 60 MG/ML solution prefilled syringe Inject 60 mg under the skin 1 (one) time dicyclomine (Bentyl) 20 MG tablet TAKE 1 TABLET BY MOUTH 3 TIMES A DAY FOR 30 DAYS DULoxetine (Cymbalta) [address] capsule [employer]-Z[employer] (Oceanlinx GUMMY PO) Take by mouth levothyroxine (Synthroid, [...] at all Patient Health Questionnaire-9 Score: 0 Andreia Fall Risk History of Falling, Immediate or [...] Yes Vision Screening: Yes, patient sees regular 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 supervisor/correctional substance abuse counselor Hearing Screening: Yes, uses hearing aids Cognitive [...] Do you have a medical power of securities attorney?: Yes Who is your medical power of securities attorney?: Alicia Ryder Objective : BP 126/72 [...] type (CMS/HCC) Hyperlipidemia, unspecified hyperlipidemia type (CMS/HCC) Patient here for annual Medicare Wellness visit. [...] on March 15, 2024 documented in [facility]Co[facility] HospitalH[facility] Narrative No data available for this section [facility] Hospital Discharge instructions No data available for this section [facility] Progress note No data available for this section [facility] Ankit Reason for referral (narrative)* Diagnostic Procedure Only (Routine) - Closed Specialty Diagnoses / Procedures Referred By Contac t Referred To Contact XR IMAGING Diagnoses Status post bilateral knee replacements Procedures XR KNEE POST OP 3V AP/LAT/MERCHANT BILATERAL RADIOLOGIC EXAMINATION KNEE 3 VIEWS Robert Crocker MD [address] [place] [address] Xr Imaging Referral ID Status Reason Start Date Expiration Date V isits Requested Visits Authorized [id number] Closed Auto-Generate d Referral 08/12/2021 09/11/2022 1 1 [facility] for referral (narrative)* Consultation (Routine) - Authorized Specialty Diagnoses / Procedures Referred By Contac t Referred To Contact Cardiology Diagnoses SVT (supraventricular tachycardia) Procedures Follow Up In Cardiology Afshin Rocha MD [address] [place] [address] [address], [address] [address] Afshin Rocha MD [address], [address] [address] Referral ID Status Reason Start Date Expiration Date V isits Requested Visits Authorized [id number] Authorized 12/08/2022 12/08/2023 1 1 * Cardiovascular (Routine) - Pending Review Specialty Diagnoses / Procedures Referred By Contac t Referred To Contact Diagnoses SVT (supraventricular tachycardia) Procedures ECG 12 Lead Afshin Rocha MD [address], [address] [address] Referral ID Status Reason Start Date Expiration Date V isits Requested Visits Authorized [id number] Pending Review 12/08/2022 12/08/2023 1 1 [facility] Work Phone: Reason for referral (narrative)* Diagnostic Procedure Only (Routine) - Closed Specialty Diagnoses / Procedures Referred By Contac t Referred To Contact XR IMAGING Diagnoses Status post bilateral knee replacements Procedures XR KNEE POST OP 3V AP/LAT/MERCHANT BILATERAL RADIOLOGIC EXAMINATION KNEE 3 VIEWS Robert Crocker MD [address] [place] [address] [place] [address] Referral ID Status Reason Start Date Expiration Date V isits Requested Visits Authorized [id number] Closed Auto-Generate d Referral 08/12/2021 09/11/2022 1 1 [facility] for referral (narrative)* Diagnostic Procedure Only (Routine) - New Request Specialty Diagnoses / Procedures Referred By Contac t Referred To Contact XR IMAGING Diagnoses Postmenopausal osteoporosis of multiple sites Procedures DXA-AXIAL SKELETON DXA BONE DENSITY STUDY 1/> SITES AXIAL Chalo Elmore MD [address] [place] [address] [place] [address] Referral ID Status Reason Start Date Expiration Date Visits Requested Visits Authorized [id number] New Request Auto-Generat ed Referral 4 12/27/2024 1 1 * Diagnostic Procedure Only (Routine) - New Request Specialty Diagnoses / Procedures Referred By Contac t Referred To Contact XR IMAGING Diagnoses Postmenopausal osteoporosis of multiple sites Procedures DXA-FOREARM SKELETON DXA BONE DENSITY STUDY 1/>SITES APPENDICLR Chalo Elmore MD [address] [place] [address] [place] [address] Referral ID Status Reason Start Date Expiration Date Visits Requested Visits Authorized [id number] New Request Auto-Generat ed Referral 10/20/12/27/2024 1 1 [facility] (narrative)No reason for referral information availableKind[facility] Work Phone: Reason for visit Narrative* Diagnostic Procedure Only (Routine) - Closed Specialty Diagnoses / Procedures Referred By Contac t Referred To Contact XR IMAGING Diagnoses Status post bilateral knee replacements Procedures XR KNEE POST OP 3V AP/LAT/MERCHANT BILATERAL RADIOLOGIC EXAMINATION KNEE 3 VIEWS Robert Crocker MD [address] [place] [address] [place] [address] Referral ID Status Reason Start Date Expiration Date V isits Requested Visits Authorized [id number] Closed Auto-Generate d Referral 08/12/2021 09/11/2022 1 1 [facility] Advance Directives No Advanced Directives Records Found Advance Directive Response Recorded Date/ Time Advance Directives No October 2:06pm Documents on File Type Date 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 Advance Directive(s) Advance Directive(s) 04/24/2021 10:29 AM Advance Directive(s) 08/27/2020 10:42 AM Advance Directive(s) 06/25/2016 7:07 AM Documents on File Type Date Recorded 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 Advance Directive(s) Advance Directive(s) 04/24/2021 [...] Admit Date Alternating constipation and diarrhea Ap 2024 10:55am Chronic GERD May 11, 2024 [...] 11, 2024 1:29pm Screening for osteoporosis September 11, 2 025 1:29pm Microcalcification of right breast on [...] 11, 2024 1:28pm Screening for osteoporosis September 11 025 1:28pm Ductal carcinoma in situ (DC [...] any alcohol or drug abuse patient.[facility] [place] the event this information is protected by the Federal Confidentiality of Alcohol and Drug Abuse Patient Records regulations: The Federal rules restrict any use of the information to criminally investigate or prosecute any alcohol or drug abuse patient.[facility] [place] the event this information is protected by the Federal Confidentiality of Alcohol and Drug Abuse Patient Records regulations: The Federal rules restrict any use of the information to criminally investigate or prosecute any alcohol or drug abuse patient.[facility] [place] the event this information is protected by the Federal Confidentiality of Alcohol and Drug Abuse Patient Records regulations: The Federal rules restrict any use of the information to criminally investigate or prosecute any alcohol or drug abuse patient.[facility] [place] the event this information is protected by the Federal Confidentiality of Alcohol and Drug Abuse Patient Records regulations: The Federal rules restrict any use of the information to criminally investigate or prosecute any alcohol or drug abuse patient.[facility] [place] the event this information is protected by the Federal Confidentiality of Alcohol and Drug Abuse Patient Records regulations: The Federal rules restrict any use of the information to criminally investigate or prosecute any alcohol or drug abuse patient.[facility] [place]In the event this information is protected by the Federal Confidentiality of Alcohol and Drug Abuse Patient Records regulations: The Federal rules restrict any use of the information to criminally investigate or prosecute any alcohol or drug abuse patient.[facility] [place]In the event this information is protected by the Federal Confidentiality of Alcohol and Drug Abuse Patient Records regulations: The Federal rules restrict any use of the information to criminally investigate or prosecute any alcohol or drug abuse patient.[facility] [place]In the event this information is protected by the Federal Confidentiality of Alcohol and Drug Abuse Patient Records regulations: The Federal rules restrict any use of the information to criminally investigate or prosecute any alcohol or drug abuse patient.[facility] [place] the event this information is protected by the Federal Confidentiality of Alcohol and Drug Abuse Patient Records regulations: The Federal rules restrict any use of the information to criminally investigate or prosecute any alcohol or drug abuse patient.[facility] [place]In the event this information is protected by the Federal Confidentiality of Alcohol and Drug Abuse Patient Records regulations: The Federal rules restrict any use of the information to criminally investigate or prosecute any alcohol or drug abuse patient.[facility] [place]In the event this information is protected by the Federal Confidentiality of Alcohol and Drug Abuse Patient Records regulations: The Federal rules restrict any use of the information to criminally investigate or prosecute any alcohol or drug abuse patient.[facility] [place]In the event this information is protected by the Federal Confidentiality of Alcohol and Drug Abuse Patient Records regulations: The Federal rules restrict any use of the information to criminally investigate or prosecute any alcohol or drug abuse patient.[facility] [place]In the event this information is protected by the Federal Confidentiality of Alcohol and Drug Abuse Patient Records regulations: The Federal rules restrict any use of the information to criminally investigate or prosecute any alcohol or drug abuse patient.[facility] [place]In the event this information is protected by the Federal Confidentiality of Alcohol and Drug Abuse Patient Records regulations: The Federal rules restrict any use of the information to criminally investigate or prosecute any alcohol or drug abuse patient.[facility] [place]In the event this information is protected by the Federal Confidentiality of Alcohol and Drug Abuse Patient Records regulations: The Federal rules restrict any use of the information to criminally investigate or prosecute any alcohol or drug abuse patient.[facility] [place]In the event this information is protected by the Federal Confidentiality of Alcohol and Drug Abuse Patient Records regulations: The Federal rules restrict any use of the information to criminally investigate or prosecute any alcohol or drug abuse patient.[facility] [place]In the event this information is protected by the Federal Confidentiality of Alcohol and Drug Abuse Patient Records regulations: The Federal rules restrict any use of the information to criminally investigate or prosecute any alcohol or drug abuse patient.[facility] [place]In the event this information is protected by the Federal Confidentiality of Alcohol and Drug Abuse Patient Records regulations: The Federal rules restrict any use of the information to criminally investigate or prosecute any alcohol or drug abuse patient.[facility] [place]In the event this information is protected by the Federal Confidentiality of Alcohol and Drug Abuse Patient Records regulations: The Federal rules restrict any use of the information to criminally investigate or prosecute any alcohol or drug abuse patient.[facility] [place]In the event this information is protected by the Federal Confidentiality of Alcohol and Drug Abuse Patient Records regulations: The Federal rules restrict any use of the information to criminally investigate or prosecute any alcohol or drug abuse patient.[facility] [place]In the event this information is protected by the Federal Confidentiality of Alcohol and Drug Abuse Patient Records regulations: The Federal rules restrict any use of the information to criminally investigate or prosecute any alcohol or drug abuse patient.[facility] [place]In the event this information is protected by the Federal Confidentiality of Alcohol and Drug Abuse Patient Records regulations: The Federal rules restrict any use of the information to criminally investigate or prosecute any alcohol or drug abuse patient.[facility] [place]In the event this information is protected by the Federal Confidentiality of Alcohol and Drug Abuse Patient Records regulations: The Federal rules restrict any use of the information to criminally investigate or prosecute any alcohol or drug abuse patient.[facility] [place]In the event this information is protected by the Federal Confidentiality of Alcohol and Drug Abuse Patient Records regulations: The Federal rules restrict any use of the information to criminally investigate or prosecute any alcohol or drug abuse patient.[facility] the event this information is protected by the Federal Confidentiality of Alcohol and Drug Abuse Patient Records regulations: The Federal rules restrict any use of the information to criminally investigate or prosecute any alcohol or drug abuse patient.[facility] [place]In the event this information is protected by the Federal Confidentiality of Alcohol and Drug Abuse Patient Records regulations: The Federal rules restrict any use of the information to criminally investigate or prosecute any alcohol or drug abuse patient.[facility] [place]In the event this information is protected by [...] any alcohol or drug abuse patient.[facility] [place]In the event this information is protected by the Federal Confidentiality of Alcohol and Drug Abuse Patient Records regulations: The Federal rules restrict any use of the information to criminally investigate or prosecute any alcohol or drug abuse patient.[facility] [place]In the event this information is protected by the Federal Confidentiality of Alcohol and Drug Abuse Patient Records regulations: The Federal rules restrict any use of the information to criminally investigate or prosecute any alcohol or drug abuse patient.[facility] [place]In the event this information is protected by the Federal Confidentiality of Alcohol and Drug Abuse Patient Records regulations: The Federal rules restrict any use of the information to criminally investigate or prosecute any alcohol or drug abuse patient.[facility] [place]In the event this information is protected by the Federal Confidentiality of Alcohol and Drug Abuse Patient Records regulations: The Federal rules restrict any use of the information to criminally investigate or prosecute any alcohol or drug abuse patient.[facility] [place]In the event this information is protected by the Federal Confidentiality of Alcohol and Drug Abuse Patient Records regulations: The Federal rules restrict any use of the information to criminally investigate or prosecute any alcohol or drug abuse patient.[facility] [place]In the event this information is protected by the Federal Confidentiality of Alcohol and Drug Abuse Patient Records regulations: The Federal rules restrict any use of the information to criminally investigate or prosecute any alcohol or drug abuse patient.[facility] [place]In the event this information is protected by the Federal Confidentiality of Alcohol and Drug Abuse Patient Records regulations: The Federal rules restrict any use of the information to criminally investigate or prosecute any alcohol or drug abuse patient.[facility] [place]In the event this information is protected by the Federal Confidentiality of Alcohol and Drug Abuse Patient Records regulations: The Federal rules restrict any use of the information to criminally investigate or prosecute any alcohol or drug abuse patient.[facility] [place]In the event this information is protected by the Federal Confidentiality of Alcohol and Drug Abuse Patient Records regulations: The Federal rules restrict any use of the information to criminally investigate or prosecute any alcohol or drug abuse patient.[facility] [place]In the event this information is protected by the Federal Confidentiality of Alcohol and Drug Abuse Patient Records regulations: The Federal rules restrict any use of the information to criminally investigate or prosecute any alcohol or drug abuse patient.[facility] [place]In the event this information is protected by the Federal Confidentiality of Alcohol and Drug Abuse Patient Records regulations: The Federal rules restrict any use of the information to criminally investigate or prosecute any alcohol or drug abuse patient.[facility] [place]In the event this information is protected by the Federal Confidentiality of Alcohol and Drug Abuse Patient Records regulations: The Federal rules restrict any use of the information to criminally investigate or prosecute any alcohol or drug abuse patient.[facility] [place]In the event this information is protected by the Federal Confidentiality of Alcohol and Drug Abuse Patient Records regulations: The Federal rules restrict any use of the information to criminally investigate or prosecute any alcohol or drug abuse patient.[facility] [place]In the event this information is protected by the Federal Confidentiality of Alcohol and Drug Abuse Patient Records regulations: The Federal rules restrict any use of the information to criminally investigate or prosecute any alcohol or drug abuse patient.[facility] [place]In the event this information is protected by the Federal Confidentiality of Alcohol and Drug Abuse Patient Records regulations: The Federal rules restrict any use of the information to criminally investigate or prosecute any alcohol or drug abuse patient.[facility] [place]In the event this information is protected by the Federal Confidentiality of Alcohol and Drug Abuse Patient Records regulations: The Federal rules restrict any use of the information to criminally investigate or prosecute any alcohol or drug abuse patient.[facility] [place]In the event this information is protected by the Federal Confidentiality of Alcohol and Drug Abuse Patient Records regulations: The Federal rules restrict any use of the information to criminally investigate or prosecute any alcohol or drug abuse patient.[facility] [place]In the event this information is protected by the Federal Confidentiality of Alcohol and Drug Abuse Patient Records regulations: The Federal rules restrict any use of the information to criminally investigate or prosecute any alcohol or drug abuse patient.[facility] [place]In the event this information is protected by the Federal Confidentiality of Alcohol and Drug Abuse Patient Records regulations: The Federal rules restrict any use of the information to criminally investigate or prosecute any alcohol or drug abuse patient.[facility] Reason for Visit (unrecogniz ed section and content) Reason Comments Macular Degeneration Follow Up both neov ascular Specialty Diagnoses / Procedures Referred By Moncho santos Referred To Contact Ophthalmology / OPHTHALMOLOGY Diagnoses 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r degeneration, right eye, with active choroidal neovascularization c*4 W, nvAMD, DFE/OCT, PRN AVASTIN Procedures PA BEVACIZUMAB INJECTION AVASTIN 1.25 mg every 4 weeks Brando Shields MD [address] [place] [address] Brando Shields MD [address] [place] [address] Referral ID Status Reason Start Date Expiration Date V isits Requested Visits Authorized [id number] Authorized 06/03/2023 06/02/2024 12 12 Reason Comments [...] BMD Specialty Diagnoses / Procedures Referred By Moncho santos Referred To Contact Diagnoses SVT (supraventricular tachycardia) Procedures ECG 12 Lead Afshin Rocha MD [address] [facility] [address], [address] [address] Referral ID Status Reason Start Date Expiration Date V isits Requested Visits Authorized [id number] Pending Review 12/08/2022 12/08/2023 1 1 Reason Comments Allied Health Visit Prolia injection Specialty Diagnoses / Procedures Referred By Moncho santos Referred To Contact Rheumatology / RHEUMATOLOGY Diagnoses Age-related osteoporosis without current pathological fracture Procedures DENOSUMAB INJECTION SAHARA INJECT Chalo Milligan MD [address] [place] [address] Nurse Lucrecia Gayle [facility] [address] [place] [address] Referral ID Status Reason Start Date Expiration Date V isits Requested Visits Authorized [id number] Authorized 09/03/2023 07/27/2024 2 2 Reason Comments [...] Expiration Date Visits Re quested Visits Authorized [id number] Closed 09/03/2023 07/27/2024 2 2 Reason Onset Date Comments Refill Request 03/06/2024 Reason Comments Macular Degeneration Follow Up both 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 Specialty Diagnoses / Procedures Referred By Moncho santos Referred To Contact Ophthalmology / OPHTHALMOLOGY Diagnoses 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r degeneration, right eye, with active choroidal neovascularization c*4 W, nvAMD, DFE/OCT, PRN AVASTIN Procedures PA BEVACIZUMAB INJECTION AVASTIN 1.25 mg every 4 weeks Brando Shields MD [address] [place] [address] Phone: tel: fax: Brando Shields MD [address] [place] [address] Phone: tel: fax: Reason Comments Posterior Capsule Opacification Follow U p Pseudophakia Macular Degeneration Follow Up Reason Comments Patient Question Appointment Reason Comments 6th poy Rt. lumpectomy W/mamms Reason Comments Orders Specialty Diagnoses / Procedures Referred By Contac t Referred To Contact Rheumatology / RHEUMATOLOGY Diagnoses Age-related osteoporosis without current pathological fracture PROLIA Procedures DENOSUMAB INJECTION THERAPEUTIC PROPHYLACTIC/DX INJECTION SUBQ/IM SAHARA INJECT PROLIA Chalo Menjivar MD [address] [place] [address] Phone: tel: fax: Nurse Lucrecia Gayle [facility] [address] [place] [address] Phone: tel: fax: Referral ID Status Reason Start Date Expiration Date V isits Requested Visits Authorized [id number] Authorized 08/29/2024 08/29/2025 2 2 Reason Comments Posterior Capsule Opacification Evaluati on Reason Comments Exudative Macular Degeneration Follow Up Specialty Diagnoses / Procedures Referred By Contact Referred To Contact Ophthalmology / OPHTHALMOLOGY Diagnoses 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r degeneration, bilateral, with active choroidal neovascularization (HCC) Return in about 13 weeks (around 07/06/2024). Procedures PA BEVACIZUMAB INJECTION Avastin 1.25 mg both eyes every 4 wks for one year Brando Shields MD [address] [place] [id number] Phone: tel:[phone] fax:[phone] Brando Shields MD [address] [place] [address] Phone: tel:[phone] fax:[phone] Referral ID Status Reason Start Date Expiration Date V isits Requested Visits Authorized [id number] Authorized 06/29/2024 06/29/2025 12 12 Care Teams [...] December 08, 2023 End: December 08, 2023 Pull Tab Dealer Relationship Specialty Start Date End Date Roney Leroy, DO [address] [place] [address] PCP - General 05/19/00 Pull Tab Dealer Relationship Specialty Start Date End Date Roney Leroy, DO [address] [address] [place] [address] PCP - General 05/19/00 Pull Tab Dealer Relationship Specialty Start Date End Date Roney Leroy, DO [address] [place] [address] PCP - General 05/19/00 Pull Tab Dealer Relationship Specialty Start Date End Date Roney Leroy, DO [address] [place] [address] PCP - General 05/19/00 Pull Tab Dealer Relationship Specialty Start Date End Date Roney Leroy, DO [address] [place] [address] PCP - General 05/19/00 Pull Tab Dealer Relationship Specialty Start Date End Date Roney Leroy, DO [address] [place] [address] PCP - General 05/19/00 Pull Tab Dealer Relationship Specialty Start Date End Date Roney Leroy, DO [address] [place] [address] PCP - General 05/19/00 Pull Tab Dealer Relationship Specialty Start Date End Date Roney Leroy, DO [address] [place] [address] PCP - General 05/19/00 Pull Tab Dealer Relationship Specialty Start Date End Date Roney Leroy, DO [address] [place] [address] PCP - General 05/19/00 Pull Tab Dealer Relationship Specialty Start Date End Date Roney Leroy, DO [address] [place] [address] PCP - General 05/19/00 Pull Tab Dealer Relationship Specialty Start Date End Date Roney Leroy, DO [address] [place] [address] PCP - General 05/19/00 Pull Tab Dealer Relationship Specialty Start Date End Date Roney Leroy, DO [address] [place] [address] PCP - General 05/19/00 Pull Tab Dealer Relationship Specialty Start Date End Date Roney Leroy, [address] [place] [address] PCP - General 05/19/00 Pull Tab Dealer Relationship Specialty Start Date End Date Roney Leroy, [address] [place] [address] PCP - General 05/19/00 Pull Tab Dealer Relationship Specialty Start Date End Date Roney Leroy, [address] [place] [address] PCP - General Family Medicine 12/08/22 Pull Tab Dealer Relationship Specialty Start Date End Date Roney Leroy, [address] [place] [address] PCP - General 05/19/00 Pull Tab Dealer Relationship Specialty Start Date End Date Roney Leroy, [address] [place] [address] PCP - General Family Medicine 08/04/22 Marifer Castellanos MD [address] [place] [address] Oncology 01/29/23 Gunner Hidalgo DO [address] [place] [address] Referring Physician General Surgery 01/29/23 Chalo Menjivar MD [address] [facility] [address] Referring Physician Rheumatology 01/29/23 Pull Tab Dealer Relationship Specialty Start Date End Date Roney Leroy DO [address] [place] [address] PCP - General 05/19/00 Pull Tab Dealer Relationship Specialty Start Date End Date Roney Leroy DO [address] [place] [address] PCP - General 05/19/00 Pull Tab Dealer Relationship Specialty Start Date End Date Roney Leroy DO [address] [place] [address] PCP - General 05/19/00 Pull Tab Dealer Relationship Specialty Start Date End Date Roney Leroy DO [address] [place] [address] PCP - General 05/19/00 Pull Tab Dealer Relationship Specialty Start Date End Date Roney Leroy DO [address] [place] [address] PCP - General 05/19/00 Pull Tab Dealer Relationship Specialty Start Date End Date Roney Leroy DO [address] [place] [address] PCP - General 05/19/00 Pull Tab Dealer Relationship Specialty Start Date End Date Roney Leroy DO [address] [place] [address] PCP - General 05/19/00 Pull Tab Dealer Relationship Specialty Start Date End Date Roney Leroy DO [address] [place] [address] PCP - General 05/19/00 Pull Tab Dealer Relationship Specialty Start Date End Date Roney Leroy DO [address] [place] [address] PCP - General 05/19/00 Team Status: Active Member Role Status Dates Roney Leroy DO Primary Care Provider Active St art: September 08, 2023 Gunner Hidalgo DO Referring Provider Active Start: September 08, 2023 Pooja Kirby MD Active Start: Jacqueline [email or web address] Elsa Siddiqui APRN Attending Provider Acti ve Start: September 08, 2023 Team Status: Inactive Member Role Status Dates Roney Leroy DO Primary Care Provider Active St art: September 08, 2023 End: September 08, 2023 Elsa Siddiqui APRN Attending Provider Acti ve Start: September 08, 2023 End: September 08, 2023 Pull Tab Dealer Relationship Specialty Start Date End Date oRney Leroy DO [address] [place] [address] PCP - General 05/19/00 Pull Tab Dealer Relationship Specialty Start Date End Date Roney Leroy DO [address] [place] [address] PCP - General 05/19/00 Pull Tab Dealer Relationship Specialty Start Date End Date Roney Leroy DO [address] [place] [address] PCP - General 05/19/00 Pull Tab Dealer Relationship Specialty Start Date End Date Roney Leroy DO [address] [place] [address] PCP - General 05/19/00 Pull Tab Dealer Relationship Specialty Start Date End Date Mounika Dick DO [address] [place] [address] PCP - General Family Medicine 09/29/23 Marifer Castellanos MD [address] [place] [address] Oncology 01/29/23 Gunner Hidalgo DO 703 [facility] [address] [place] [address] Referring Physician General Surgery 01/29/23 Chalo Menjivar MD [address] [place] [address] Referring Physician Rheumatology 01/29/23 Pull Tab Dealer Relationship Specialty Start Date End Date Mayelin Mounika Rocio DO [address] [place] [address] PCP - General Family Medicine 09/29/23 Marifer Castellanos MD [address] [place] [address] Oncology 01/29/23 Gunner Hidalgo, DO 703 [facility] [address] [place] [address] Referring Physician General Surgery 01/29/23 Chalo Menjivar MD [address] [place] [address] Referring Physician Rheumatology 01/29/23 Pull Tab Dealer Relationship Specialty Start Date End Date Roney Leroy, [address] [place] [address] PCP - General 05/19/00 Pull Tab Dealer Relationship Specialty Start Date End Date Roney Leroy, [address] [place] [address] PCP - General Family Medicine 08/04/22 Marifer Castellanos MD [address] [place] [address] Oncology 01/29/23 Gunner Hidalgo DO [address] [address] Referring Physician General Surgery 01/29/23 Chalo Menjivar MD [address] [facility] [place] [address] Referring Physician Rheumatology 01/29/23 Pull Tab Dealer Relationship Specialty Start Date End Date Roney Leroy DO [address] [facility] [address] [place] [address] PCP - General Family Medicine 08/04/22 Marifer Castellanos MD [address] [place] [address] Oncology 01/29/23 Gunner Hidalgo DO [address] [address] Referring Physician General Surgery 01/29/23 Chalo Menjivar MD [address] [place] [address] Referring Physician Rheumatology 01/29/23 Pull Tab Dealer Relationship Specialty Start Date End Date Mounika Dick DO [address] [facility] [address] [place] [address] PCP - General Family Medicine 09/29/23 Marifer Castellanos MD [address] [place] [address] Oncology 01/29/23 Gunner Hidalgo DO [address] [place] [address] Referring Physician General Surgery 01/29/23 Chalo Menjivar MD [address] [place] [address] Referring Physician Rheumatology 01/29/23 Pull Tab Dealer Relationship Specialty Start Date End Date Mounika Dick DO [address] [place] [address] PCP - General Family Medicine 09/29/23 Marifer Castellanos MD [address] [place] [address] Oncology 01/29/23 Gunner Hidalgo DO [address] [place] [address] Referring Physician General Surgery 01/29/23 Chalo Menjivar MD [address] [place] [place] [address] Referring Physician Rheumatology 01/29/23 Pull Tab Dealer Relationship Specialty Start Date End Date Mounika Dick DO [address] [place] [address] PCP - General Family Medicine 09/29/23 Marifer Castellanos MD [address] [place] [address] Oncology 01/29/23 Gunner Hidalgo DO [address] [place] [address] Referring Physician General Surgery 01/29/23 Chalo Menjivar MD [address] [place] [address] Referring Physician Rheumatology 01/29/23 Pull Tab Dealer Relationship Specialty Start Date End Date Mounika Dick DO [address] [facility] [address] [place] [address] PCP - General Family Medicine 09/29/23 Marifer Castellanos MD [address] [place] [address] [place] [address] Oncology 01/29/23 Gunner Hidalgo DO [address] [address] [place] [address] Referring Physician General Surgery 01/29/23 Chalo Menjivar MD [address] [place] [address] Referring Physician Rheumatology 01/29/23 Pull Tab Dealer Relationship Specialty Start Date End Date Mounika Dick DO [address] [facility] [address] [place] [address] PCP - General Family Medicine 09/29/23 Marifer Castellanos MD [address] [place] [address] [place] [address] Oncology 01/29/23 Gunner Hidalgo DO [address] [place] [address] Referring Physician General Surgery 01/29/23 Chalo Menjivar MD [address] [place] [address] Referring Physician Rheumatology 01/29/23 Pull Tab Dealer Relationship Specialty Start Date End Date Mounika Dick DO [address] [place] [address] PCP - General Family Medicine 09/29/23 Marifer Castellanos MD [address] [place] [address] Oncology 01/29/23 Gunner Hidalgo DO [address] [place] [address] Referring Physician General Surgery 01/29/23 Chalo Menjivar MD [address] [place] [address] Referring Physician Rheumatology 01/29/23 Pull Tab Dealer Relationship Specialty Start Date End Date Mounika Dick DO [address] [facility] [address] [place] [address] PCP - General Family Medicine 09/29/23 Marifer Castellanos MD [address] [place] [address] Oncology 01/29/23 Gunner Hidalgo DO [address] [place] [address] Referring Physician General Surgery 01/29/23 Chalo Menjivar MD [address] [place] [address] Referring Physician Rheumatology 01/29/23 Pull Tab Dealer Relationship Specialty Start Date End Date Mounika Dick DO [address] [facility] [address] [place] [address] PCP - General Family Medicine 09/29/23 Marifer Castellanos MD [address] [place] [address] Oncology 01/29/23 Gunner Hidalgo DO [address] [address] Referring Physician General Surgery 01/29/23 Chalo Menjivar MD [address] [facility] [place] [address] Referring Physician Rheumatology 01/29/23 Pull Tab Dealer Relationship Specialty Start Date End Date Mounika Dick DO [address] [facility] [address] [place] [address] PCP - General Family Medicine 09/29/23 Marifer Castellanos MD [address] [place] [address] Oncology 01/29/23 Gunner Hidalgo DO [address] [place] [address] Referring Physician General Surgery 01/29/23 Chalo Menjivar MD [address] [place] [address] Referring Physician Rheumatology 01/29/23 Pull Tab Dealer Relationship Specialty Start Date End Date Roney Leroy DO [address] [facility] [address] [place] [address] PCP - General 05/19/00 Pull Tab Dealer Relationship Specialty Start Date End Date Mounika Dick DO [address] [facility] [address] [facility] [address] [place] [address] PCP - General Family Medicine 09/29/23 Marifer Castellanos MD [address] [place] [address] Oncology 01/29/23 Gunner Hidalgo DO 703 [facility] [address] [place] [address] Referring Physician General Surgery 01/29/23 Chalo Menjivar MD 5700 [facility] [place] [address] Referring Physician Rheumatology 01/29/23 Meir Morrissey MD 703 [facility] [address] [place] [address] Referring Physician Gastroenterology 03/15/24 Pull Tab Dealer Relationship Specialty Start Date End Date Mounika Dick DO [address] [facility] [address] [place] [address] PCP - General Family Medicine 09/29/23 Marifer Castellanos MD [address] [place] [address] Oncology 01/29/23 Gunner Hidalgo DO 703 [facility] [address] [place] [address] Referring Physician General Surgery 01/29/23 Chalo Menjivar MD [address] [place] [address] Referring Physician Rheumatology 01/29/23 Meir Morrissey MD 703 [facility] [address] [place] [address] Referring Physician Gastroenterology 03/15/24 Pull Tab Dealer Relationship Specialty Start Date End Date Roney Leroy DO [address] [facility] [address] [place] [address] PCP - General 05/19/00 Pull Tab Dealer Relationship Specialty Start Date End Date Roney Leroy DO [address] [facility] [address] [place] [address] PCP - General 05/19/00 Pull Tab Dealer Relationship Specialty Start Date End Date Roney Leroy DO [address] [facility] [address] [place] [address] PCP - General 05/19/00 Team Status: Inactive Member Role Status Dates Roney Leroy DO Primary Care Provider Active St art: May 11, 2024 End: May 11, 2024 Sade Garcia APRN Attending Provider Active Start: May 11, 2024 End: May 11, 2024 Pull Tab Dealer Relationship Specialty Start Date End Date Mounika Dick DO [address] [facility] [address] [place] [address] PCP - General Family Medicine 09/29/23 Marifer Castellanos MD 701 [facility] [place] [address] Oncology 01/29/23 Gunner Hidalgo DO [address] [address] [place] [address] Referring Physician General Surgery 01/29/23 Chalo Menjivar MD [address] [place] [address] Referring Physician Rheumatology 01/29/23 Meir Morrissey MD [address] [place] [address] Referring Physician Gastroenterology 03/15/24 Pull Tab Dealer Relationship Specialty Start Date End Date Mounika Dick DO [address] [place] [address] PCP - General Family Medicine 09/29/23 Marifer Castellanos MD [address] [place] [address] Oncology 01/29/23 Gunner Hidalgo DO [address] [address] Referring Physician General Surgery 01/29/23 Chalo Menjivar MD [address] [place] [address] Referring Physician Rheumatology 01/29/23 Meir Morrissey MD [address] [place] [address] Referring Physician Gastroenterology 03/15/24 Pull Tab Dealer Relationship Specialty Start Date End Date Roney Leroy, [address] [place] [address] PCP - General 05/19/00 Pull Tab Dealer Relationship Specialty Start Date End Date Roney Leroy DO [address] [place] [address] PCP - General 05/19/00 Pull Tab Dealer Relationship Specialty Start Date End Date Roney Leroy DO [address] [place] [address] PCP - General 05/19/00 Pull Tab Dealer Relationship Specialty Start Date End Date Mounika Dick DO [address] [place] [address] PCP - General Family Medicine 09/29/23 Marifer Castellanos MD [address] [place] [address] Oncology 01/29/23 Gunner Hidalgo DO 703 [facility] [address] [place] [address] Referring Physician General Surgery 01/29/23 Chalo Menjivar MD [address] [facility] [place] [address] Referring Physician Rheumatology 01/29/23 Meir Morrissey MD [address] [place] [address] Referring Physician Gastroenterology 03/15/24 Team Status: Inactive Member Role Status Dates Roney Rad , DO Primary Care Provider Active St art: September 29, 2024 End: September 29, 2024 Sade Garcia APRN Attending Provider Active Start: September 29, 2024 End: September 29, 2024 Pull Tab Dealer Relationship Specialty Start Date End Date Roney Leroy DO [address] [place] [address] PCP - General 05/19/00 INFORMATION SOURCE (unrecogn ized section and content) DATE CREATED AUTHOR 12/05/2021 [facility] DATE CREATED AUTHOR AUTHOR'S ORGANIZ ATION 12/09/2022 [facility] DATE CREATED AUTHOR AUTHOR'S ORGANIZ ATION 04/25/2024 [facility] DATE CREATED AUTHOR AUTHOR'S ORGANIZ ATION 09/08/2024 [facility] DATE CREATED AUTHOR AUTHOR'S ORGANIZ ATION 09/13/2024 [facility] DATE CREATED AUTHOR AUTHOR'S ORGANIZ ATION 10/07/2024 [facility] DATE CREATED AUTHOR AUTHOR'S ORGANIZ ATION 10/09/2024 [facility] Goals (unrecognized section and content) Goals may [...] BE BASED ON THE PRIMARY CLINICAL RECORDS. [facility]. provides no warranty or guarantee of the accuracy or completeness of information in this document.
[2024-10-10] MEDS: ASPIRIN 81 MG TAB.CHEW PO (08:36)
[2024-10-10] MEDS: METOPROLOL SUCCINATE 25 MG TAB.ER.24H PO (08:36)
[2024-10-10] MEDS: CHLORTHALIDONE 25 MG TABLET PO (08:36)
[2024-10-10] MEDS: MAGNESIUM OXIDE 400 MG TABLET PO (08:36)
[2024-10-10] MEDS: SENNOSIDES/DOCUSATE SODIUM 1 TAB TABLET PO (08:36)
[2024-10-10] MEDS: MAGNESIUM SULFATE IN WATER 4 GM/100 ML PIGGYBACK IV (08:47)
--- NOTE | 2024-10-10 09:10 | CM.NOTE ---
Clarified with Dr. Talbert pt's status, pt will stay in OBS status.
--- NOTE | 2024-10-10 09:10 | CM.NOTE ---
Rounds made with Dr. Talbert, pt awaiting MRI for today. Possible discharge to home later afternoon if MRI normal. Pt then would f/u with PCP.
[2024-10-10] MEDS: DIAZEPAM 2 MG TABLET PO (10:47)
--- NOTE | 2024-10-10 11:00 | MR_ITS ---
The [address] [address] Patient Name: FANTASMA LEWSI MRN: [id number] date: 1940 Sex: F Assigned Patient Location: [place] Current Patient Location: [place] Accession/Order Number: [id number] Exam Date: 10/10/2024 11:00 Report Date: 10/10/2024 12:03 At the request of: IRENE MARTINEZ MD Procedure: MR head/brain wo con EXAMINATION: MRI OF THE BRAIN WITHOUT CONTRAST CLINICAL HISTORY: TIA with diplopia and visual changes COMPARISON: 10/23/2022 TECHNIQUE: Multiecho, multiplanar imaging of the brain was performed without enhancement. Mild atrophy is present. The ventricles are normal in size and position. Similar patchy areas of increased T2 and FLAIR signal are seen within the periventricular and subcortical white matter as well as the basal ganglia region and marco. This is likely chronic microvascular disease. There are no additional areas of abnormal signal intensity within the supra- or infratentorial brain. No restricted diffusion is identified to suggest a recent ischemic event. There are no extra-axial collections or mass effect. No midline abnormalities are seen. There is minimal left maxillary mucosal thickening. No mastoid sinus disease is identified. The orbital structures appear symmetric. MR/MR head/brain wo con IMPRESSION: ATROPHY AND CHRONIC MICROVASCULAR DISEASE SIMILAR TO THE COMPARISON. NO ACUTE INTRACRANIAL FINDINGS Impression dictated by: May Lopez M.D. 10/10/2024 12:03 PM Dictation Location: [place] [address] Electronically authenticated by: [id number] Y Date: 10/10/2024 12:03
--- NOTE | 2024-10-10 11:42 | REH.PTDLY ---
Physical Therapy Daily Note PT Daily Note/Assess Start: 10/10/24 11:40 Freq: Status: Active Protocol: Document 10/10/24 11:40 ALEXANDRA (Rec: 10/10/24 11:42 ALEXANDRA [id number]) Visit Not Completed Other Reason Visit Pt not in room when checked 2x in 11:00 hour, pt having Not Completed MRI done. Physical Therapy Daily Note/Assessment Time In 11:40 Time Out 11:41
--- NOTE | 2024-10-10 13:23 | SWNOTE1 ---
Medicare Outpatient Observation Notice reviewed and discussed with patient. Pt. verbalized understanding and signed the form. Original given to patient and copy placed in patient?s chart.
--- NOTE | 2024-10-10 13:24 | SWNOTE1 ---
Medicare Outpatient Observation Notice reviewed and discussed with patient. Pt. verbalized understanding and signed the form. Original given to patient and copy placed in patient?s chart.
--- NOTE | 2024-10-10 13:24 | SWNOTE1 ---
SW met with pt to discuss dc needs. Pt lives at home on her own, she has a dog in the home as well. Pt spoke of her very supportive family, between kids and grandkids, they are always calling or stopping to check on her. Pt does have a rollator and cane at home. She uses rollator when she is out of the home, cane in the home if needed. SW and pt spoke about the recommendations of Home health services. Pt is familiar with HH. She stated 2 years ago she had covid and went to rehab at the [facility], then went home with home health. Pt stated she truly does not feel she needs home health services at this time. SW advised if she does get home and decides she would like it, she can reach out to her PCP. Pt voiced understanding. At this time pt refusing HH services.
--- NOTE | 2024-10-10 14:36 | REH.PTDLY ---
Physical Therapy Daily Note PT Daily Note/Assess Start: 10/10/24 11:40 Freq: Status: Active Protocol: Document 10/10/24 14:31 ALEXANDRA (Rec: 10/10/24 14:36 ALEXANDRA [id number]) Physical Therapy Daily Note/Assessment Time In 14:10 Time Out 14:30 Subjective No new complaints, going home later this afternoon. Haven't heard anything about MRI. Still having double vision further away. Therapeutic Exercise 5 Minutes (minutes) Therapeutic Exercise 0 Units Therapeutic Exercise Instructed in B LE seated exs 10x ea for improved Treatment strength with no complaints. Exs included HR, LAQ, marching, hip add, and hip abd. Therapeutic Activity 12 Minutes (minutes) Therapeutic Activity 1 Units Therapeutic Activity Ind with transfers. Performed 5 sit to stands from Comments chair with no UE support. Gait training with SC Supervised with pt using HR on wall at times for 200 feet. Pt ambulates with caution, 1 instance of imbalance when she turns her head to the side to look out window. Pt able to self correct. Total Therapy 17 Minutes Total Physical 1 Therapy Units Daily Note Summary Progressed gait distance today to 200 feet with 1 instance of unsteadiness with cervical rotation during gait with pt being able to self correct. Pt states everything at home is in a close distance and always something to grab onto while using SC. Pt states she knows she will be fine when she goes home, lots of family support. Pt states she is being DC to home later today.
--- NOTE | 2024-10-10 15:33 | CA_ITS ---
Patient Name: FANTASMA LEWIS MR#: [id number] : 1940 Exam Date: 10/10/2024 Ordering Doctor: IRENE MARTINEZ ECHOCARDIOGRAM REPORT PROCEDURE: CA ECHO DOPPLER COMPLETE INDICATIONS: TIA, hypertension COMPARISON: None. DESCRIPTION: COMPLETE ECHOCARDIOGRAM Real-time transthoracic echocardiography with 2D, M-mode, spectral and color flow Doppler performed. QUALITY: Technical quality was good. LEFT VENTRICLE: Normal chamber size. Proximal septal hypertrophy (sigmoid septum). LV EF: Global left ventricular systolic function is normal; visually estimated ejection fraction 60 to 65%. No significant wall motion abnormalities. DIASTOLIC: Diastolic function is indeterminate. E/E' consistent with volume overload. ATRIAL SEPTUM: Visually appears intact. LEFT ATRIUM: Normal chamber size. RIGHT ATRIUM: Normal chamber size. RIGHT VENTRICLE: Normal chamber size. Normal right ventricular systolic function. TRICUSPID VALVE: Normal mobility and thickness. No stenosis with mild regurgitation. No evidence of pulmonary hypertension. RVSP 33 mmHg MITRAL VALVE: Normal mobility and thickness. No evidence of mitral valve stenosis. Moderate mitral annular calcification. Trivial mitral regurgitation. AORTIC VALVE: Normal trileaflet appearance. Mildly calcified aortic valve. Normal leaflet mobility. No evidence of aortic valve stenosis. No aortic regurgitation. AORTIC ROOT: Normal diameter and appearance. PULMONIC VALVE: Normal thickness and mobility. No stenosis. No regurgitation. PERICARDIUM: No evidence of pericardial effusion. IVC: Collapses with inspiration. IVC is normal in size. CONCLUSION: 1. Global left ventricular systolic function is normal; visually estimated ejection fraction is 60 to 65% 2. Normal right ventricular size and systolic function 3. Diastolic function is indeterminate. E/E' consistent with volume overload 4. The left atrium is normal size 5. Mild tricuspid regurgitation Adult Echocardiography Procedure Report Left Ventricle LVEDD (3.7 - 5.6 cm): 3.27 cm LVESD (2.2 - 4.0 cm): 2.67 cm LVIVS thickness (0.6 - 1.2 cm): 1.57 cm LVPW thickness (0.5 - 1.0 cm): 0.96 cm e': 0.06 m/s E - e': 16.31 LVOT Max Gradient: 3.02 mm[Hg] LVOT Area (cm2): 0.87 m/s Peak Velocity (LVOT): 0.87 m/s LVOT Diameter 1.98 cm Left Ventricular Ejection Fraction: 63.75 % Left Atrium LA Volume Index (2D A2C): 33.79 ml/m2 Left Atrium Systolic Dimension: 3.19 cm Mitral Valve MV E to A Ratio: 0.80 Mitral Valve A-Wave Peak Velocity: 1.31 m/s Mitral Valve E-Wave Peak Velocity: 1.05 m/s Right Ventricle Aorta AO Root Diam: 3.21 cm Aortic Valve AoV Area (Peak Jose): 2.20 cm2, 2.20 cm2 Peak Velocity(Antegrade Flow): 1.21 m/s Peak Gradient(Antegrade Flow): 5.90 mm[Hg] Tricuspid Valve Peak Velocity (Regurgitant Flow): 2.26 m/s, 2.39 m/s, 2.74 m/s Pulmonic Valve Peak Gradient: 2.26 mm[Hg], 2.59 mm[Hg] Right Atrium Dictated by: Alicia Flores M.D. on 10/10/2024 at 13:29 Approved by: Alicia Flores M.D. on 10/10/2024 at 13:32
--- NOTE | 2024-10-11 10:20 | PM.DS1 ---
DS: Providers Provider Date of admission: 10/07/24 16:26 Primary care physician: Melvin Dick Consults: 10/07/24 12:45 Consult to TeleNeurology Routine Reason for consultation: stroke more than 5 days Has provider been notified: Yes 10/07/24 15:33 Occupational Therapy Eval and Treat Routine Reason for consultation: TIA Physical Therapy Eval and Treat Routine Reason for consultation: TIA Speech Therapy Eval and Treat Routine Reason for consultation: TIA Attending physician on discharge: MAYANK LEWIS DS: Diagnosis Discharge Diagnosis (1) Diplopia: (2) Macular degeneration: (3) Cornea disorder: (4) Aneurysm, ophthalmic artery: (5) IBS (irritable bowel syndrome): (6) Rheumatoid arthritis: (7) Hypokalemia: (8) Hypomagnesemia: DS: Summary Hospital Course Hospital Course: Miss Lorenz is an 84-year-old female who was admitted the hospital the morning of October 08, she has a significant history of macular degeneration, and cornea disorders requiring multiple procedures in the past developed double vision, she went and saw her eye doctor who then recommend go to the hospital to rule out stroke. CT head, CTA head and neck were all negative for any acute process. MRI of the head was performed without contrast and also showed no evidence of an acute ischemic stroke. On exam the double vision improved with closing either eye. On exam the double vision did improve with looking to the right and seem to worsen with looking to the far left. Given that the MRI was negative, she was discharged from the hospital. Her echocardiogram also showed no evidence of stroke origination she was started on atorvastatin, as there is no evidence of acute ischemia, I did discontinue her aspirin on discharge. She was instructed to follow-up with therapy and her net developer contract as ordered. Time Spent with Patient Time attestation: Total time spent providing and/or coordinating discharge services: Exam Narrative Exam Narrative: General: Awake and alert, no acute distress HEENT: Normocephalic, atraumatic, diplopia seemed to improve with far right vision, worsened with far left. Did appear to have a slight cranial nerve palsy on the left. Lungs: Clear to auscultation bilaterally Cardiac: Regular rate and rhythm, no murmurs appreciated GI: Soft, nontender, regular bowel sounds. Extremities: Active and passive range of motion intact throughout, no edema Neuro: Cranial nerves II through XII intact, no focal deficits noted Skin: No rashes or lesions, no signs of jaundice Constitutional Vital Signs, click to edit/add: Last Vital Signs Temp 97.8 F 10/10/24 15:55 Pulse 83 10/10/24 15:55 Resp 16 10/10/24 15:55 BP 123/71 10/10/24 15:55 Pulse Ox 96 10/10/24 15:55 O2 Del Method Room Air 10/10/24 15:55 Discharge Plan Discharge Disposition: Home, Self-Care Discharge Medications: New atorvastatin 40 mg Tablet 80 mg PO QHS 30 Days Qty: 60 0RF sennosides-docusate sodium [Senna Plus] 8.6-50 mg Tablet 1 tab PO QD PRN (Reason: Constipation) 30 Days Qty: 30 0RF magnesium oxide 400 mg (241.3 mg magnesium) Tablet 400 mg PO QD 30 Days Qty: 30 0RF metoprolol succinate 25 mg Tablet Extended Release 24 Hr 25 mg PO QD 30 Days Qty: 30 0RF Continued meloxicam 15 mg tablet 15 mg PO DAILY chlorthalidone 25 mg tablet 25 mg PO DAILY prednisolone acetate 1 % drops,suspension 1 drp OPHTHALMIC (EYE) DAILY Patient Comments: BOTH EYES dicyclomine 20 mg tablet 20 mg PO TID duloxetine 60 mg capsule,delayed release(DR/EC) 60 mg PO DAILY levothyroxine 88 mcg tablet 88 mcg PO QAM omeprazole 40 mg capsule,delayed release(DR/EC) 40 mg PO BID Prolia 60 mg/mL syringe 60 mg subcut .twice a year Changed losartan 100 mg tablet 50 mg PO DAILY Qty: 0 0RF Activity: increase activity as tolerated Activity Detail: Use your cane. Diet: advance to your usual diet Print Language: Indonesian Patient Instructions: Metoprolol (By mouth), Atorvastatin (By mouth), Magnesium (By mouth), Senna (By mouth), Ischemic Stroke (DC), Diplopia (DC) Forms: Portal Instructions Follow Up Appointments: 10/17 @ 2pm with Dr. Dick [phone] Discharge Date/Time: 10/10/24 16:44
--- NOTE | 2024-10-11 13:20 | CM.DCFOLLOWU ---
Person spoke with: patient How are you feeling?well How is your pain?none Did you understand your discharge instructions?yes Do you have any questions about your discharge instructions?no Were you given any prescriptions at discharge?yes Were you able to get your prescriptions filled?yes Do you understand how to take your medications as ordered?yes Do you have any questions about your follow up appointment and do you plan to keep your follow up appointment? no questions, has follow up 10/17, she is writing down her blood pressure when she checks it and will take to the doctor Is there anything else that you would like to discuss?no Questions/Comments/Concerns/Other:none
== END 2024-10-10 16:44 | disposition home or self-care (01) ==
LOC: ER 15:08 → MS 10-08 17:30
PROVIDERS: Psychiatry & Neurology Neurology; Admitting Provider Internal Medicine; Emergency Provider Emergency Medicine; PCP Family Medicine; Visit Provider Internal Medicine
DX: H53.2 Diplopia (principal); H35.30 Unspecified macular degeneration; Z94.7 Corneal transplant status; I72.8 Aneurysm of other specified arteries; K58.9 Irritable bowel syndrome, unspecified; M06.9 Rheumatoid arthritis, unspecified; E87.6 Hypokalemia; E83.42 Hypomagnesemia; H53.8 Other visual disturbances; I10 Essential (primary) hypertension; Z79.899 Other long term (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 therapy; Z96.653 Presence of artificial knee joint, bilateral; Z90.49 Acquired absence of other specified parts of digestive tract; Z87.891 Personal history of nicotine dependence; Z85.3 Personal history of malignant neoplasm of breast; H54.7 Unspecified visual loss; I07.1 Rheumatic tricuspid insufficiency; E03.9 Hypothyroidism, unspecified
CPT/HCPCS: 36415; 70450; 70496; 70498; 70551; 80048; 80053; 80061; 83036; 83735; 84484; 85025; 85610; 85652; 86140; 92523; 93005; 93306; 96365; 96366; 96372; 97161; 97165; 97530; 99285; G0378; J1650; J3475; Q9967

== ENCOUNTER 2024-12-23 21:27 | Emergency (ER) | payer MEDICARE, SELFPAY ==
[2024-12-23] VITALS (11 sets, daily range): BP systolic 126–156; BP diastolic 66–97; PULSE 105–131; TEMP 37.7; O2SAT 94–100; BMI 27.4
--- NOTE | 2024-12-23 21:51 | ECG_ITS ---
[facility] Test Date: 2024-12-23 Pat Name: FANTASMA LEWIS Department: Room: - Gender: Female Rn Ed: : 1940 Requested By: [id number] Order Number: [id number] Reading MD: TAQUERIA TESFAYE M.D. Measurements Intervals [place] Rate: 117 P: 42 IA: 136 QRS: 25 QRSD: 86 T: 40 QT: 306 QTc: 376 Interpretive Statements 1120 Sinus tachycardia 9140 abnormal rhythm ECG Compared to ECG 10/07/2024 12:16:28 Sinus rhythm no longer present Electronically Signed On 12-23-2024 23:06:14 EST by TAQUERIA TESFAYE M.D.
--- NOTE | 2024-12-23 21:53 | ED.GENADUL1 ---
HPI HPI - General Adult General Chief complaint: Fever Stated complaint: FEVER, POSS ELEVATED HEART RATE Time Seen by Provider: 12/23/24 21:42 Source: patient Mode of arrival: Wheelchair Limitations: no limitations History of Present Illness HPI narrative: 84-year-old female presents for fever which started today. She states it was 102.7 at home. She states other than a runny nose she does not have any other symptoms. No headache or cough or vomiting. She had 4 episodes of diarrhea today. She has been around any ill people. Related Data Home Medications ?Medication ?Instructions ?Recorded ?Confirmed denosumab 60 mg/mL subcutaneous 60 mg subcut .twice a year 10/20/22 12/23/24 syringe (Prolia) duloxetine 60 mg capsule,delayed 60 mg PO DAILY 10/20/22 12/23/24 release levothyroxine 88 mcg tablet 88 mcg PO QAM 10/20/22 12/23/24 omeprazole 40 mg capsule,delayed 40 mg PO BID 10/20/22 12/23/24 release chlorthalidone 25 mg tablet 25 mg PO DAILY 10/07/24 12/23/24 dicyclomine 20 mg tablet 20 mg PO TID 10/07/24 12/23/24 meloxicam 15 mg tablet 15 mg PO DAILY 10/07/24 12/23/24 prednisolone acetate 1 % eye 1 drp ophthalmic (eye) DAILY 10/07/24 12/23/24 drops,suspension atorvastatin 40 mg tablet 40 mg PO QHS 12/23/24 12/23/24 Previous Rx's ?Medication ?Instructions ?Recorded losartan 100 mg tablet 50 mg (1/2 x 100 mg) PO DAILY #0 10/10/24 tabs magnesium oxide 400 mg (241.3 mg 400 mg PO QD 30 days #30 tabs 10/10/24 magnesium) tablet sennosides 8.6 mg-docusate sodium 1 tab PO QD PRN Constipation 30 10/10/24 50 mg tablet (Senna Plus) days #30 tabs Allergies Allergy/AdvReac Type Severity Reaction Status Date / Time No Known Drug Allergies Allergy Verified 12/23/24 21:45 Opioid HPI Opioid Management Most Recent Opioid Data: Last Pain Scale 0 10/10/24, 08:35 Last ORT Total Score 0 10/07/24, 16:34 Last ORT Risk Category Low Risk 10/07/24, 16:34 Review of Systems ROS Narrative A ten point review of systems is negative except as noted above. 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 - Unspecified disorder of cornea (ICD-10) Macular degeneration ?H35.30 - Unspecified macular degeneration (ICD-10) IBS (irritable bowel syndrome) ?K58.9 - Irritable bowel syndrome without diarrhea (ICD-10) Rheumatoid arthritis ?M06.9 - Rheumatoid arthritis, unspecified (ICD-10) H/O nephrolithotomy with removal of calculi ?Z98.890 - Other specified postprocedural states (ICD-10) ?Z87.442 - Personal history of urinary calculi (ICD-10) Kidney stone ?N20.0 - Calculus of kidney (ICD-10) Goiter colloid, toxic, 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 - Thyrotoxicosis with toxic multinodular goiter without thyrotoxic crisis or storm (ICD-10) Hypothyroidism ?E03.9 - Hypothyroidism, unspecified (ICD-10) Hypertension ?I10 - Essential (primary) hypertension (ICD-10) Breast cancer ?C50.919 - Malignant neoplasm of unspecified site of unspecified female breast (ICD-10) Surgical History (Updated 10/21/22 @ 07:04 by Arelis Jade RN) Cataract (lens) fragments in eye following cataract surgery, bilateral ?H59.023 - Cataract (lens) fragments in eye following cataract surgery, bilateral (ICD-10) History of knee replacement procedure of right knee ?Z96.651 - Presence of right artificial knee joint (ICD-10) History of knee replacement procedure of left knee ?Z96.652 - Presence of left artificial knee joint (ICD-10) Hx of appendectomy ?Z90.49 - Acquired absence of other specified parts of digestive tract (ICD-10) History of lumpectomy of right breast ?Z98.890 - Other specified postprocedural states (ICD-10) Family History (Updated 10/20/22 @ 14:23 by Brenda Mena) Mother Family history of CHF (congestive heart failure) Family history of diabetes mellitus Family history of hypertension Family history of myocardial infarction Grandfather Family history of COPD (chronic obstructive pulmonary disease) Family history of stroke Grandmother Family history of cancer Brother Family history of diabetes mellitus Father Family history of hypertension Social History Within the past year, how often did you have a drink containing alcohol: never Within the past year, how many standard drinks containing alcohol did you have on a typical day: 1 or 2 Within the past year, how often did you have six or more drinks on one occasion: never Total score: 0 Score interpretation: A score less than 3 is consistent with normal alcohol consumption. Smoking status: Former smoker Non-prescribed substance use: denies use Previous occupational history: Retired Highest level of school completed/degree received: high school graduate Are you now , , , , never or living with a partner: In a typical week, how many times do you talk on the telephone with family, friends, or neighbors: 3 or more times per week How often do you get together with friends or relatives: 3 or more times per week How often do you attend sabianist or gnosticism services: 4 or more times per year Do you belong to any clubs or organizations such as sabianist groups unions, fraternal or athletic groups, or school groups: no Total score: 2 Score interpretation: A score of greater than or equal to 2 indicates the lowest level of social isolation. Little interest or pleasure in doing things: not at all Feeling down, depressed, or hopeless: not at all Feel stressed/tense/nervous/anxious/difficulty sleeping: not at all Do you think of yourself as: straight/heterosexual Gender Identity: female Exam Narrative Exam Narrative: Nurses note and vital signs reviewed General:The patient appears well and in no apparent distress.Patient is resting comfortably on cart. Skin:Warm, dry, no pallor noted.There is no rash noted. Head:Normocephalic, atraumatic Eye: Normal conjunctiva, no drainage Ears, Nose, Mouth, and Throat: oral mucosa is moist. Nares patent. Cardiovascular:Regular Rate and Rhythm, tachycardic Respiratory:Patient is in no distress, no accessory muscle use, lungs are clear to auscultation, no wheezing, rales or rhonchi Back:non-tender GI: Soft and nontender Musculoskeletal: The patient has no evidence of calf tenderness, no pitting edema, symmetrical pulses noted bilaterally Neurological:A&O, normal speech, hard of hearing Psychiatric:Cooperative Constitutional Vital Signs, click to edit/add: Last Vital Signs Temp 99.8 F 12/23/24 21:40 Pulse 131 H 12/23/24 21:40 Resp 20 12/23/24 21:40 BP 156/80 H 12/23/24 21:40 Pulse Ox 94 L 12/23/24 22:11 O2 Del Method Room Air 12/23/24 22:11 Course Vital Signs Vital signs: Vital Signs Temperature 99.8 F 12/23/24 21:40 Pulse Rate 131 H 12/23/24 21:40 Respiratory Rate 20 12/23/24 21:40 Blood Pressure 156/80 H 12/23/24 21:40 Pulse Oximetry 94 L 12/23/24 21:40 Oxygen Delivery Method Room Air 12/23/24 21:40 Temperature 99.8 F 12/23/24 21:40 Pulse Rate 131 H 12/23/24 21:40 Respiratory Rate 12/23/24 21:40 Blood Pressure 156/80 H 12/23/24 21:40 Pulse Oximetry 94 L 12/23/24 22:11 Oxygen Delivery Method Room Air 12/23/24 22:11 Medical Decision Making MDM Narrative Medical decision making narrative: Her workup is negative. No evidence of COVID or influenza or UTI or pneumonia. Antibiotic is not indicated. Treatment diagnosis and follow-up were discussed with the patient. Differential Diagnosis Differential Diagnosis: COVID, influenza, pneumonia, UTI, viral illness Lab Data Lab results reviewed: Yes I reviewed the patient's lab results Labs: Lab Results 12/23/24 12/23/24 12/23/24 Range/Units 21:49 21:54 22:47 WBC 7.9 (4.0-11.0) 10^3/uL RBC 3.78 L (4.20-5.40) 10^6/uL Hgb 12.4 (12.0-16.0) g/dL Hct 37.1 (36.0-48.0) % MCV 98.1 (81.0-99.0) fL MCH 32.8 (26.7-34.0) pg MCHC 33.4 (29.9-35.2) g/dL RDW 14.0 (11.0-15.0) % Plt Count 250 (150-450) 10^3/uL MPV 9.2 L (9.5-13.5) fL Neut % (Auto) 79.4 H (43.0-75.0) % Lymph % (Auto) 10.5 L (20.5-60.0) % [place] % (Auto) 7.5 (1.7-12.0) % Eos % (Auto) 2.0 (0.9-7.0) % Baso % (Auto) 0.3 (0.2-2.0) % Neut # (Auto) 6.3 (1.4-6.5) 10^3/uL Lymph # (Auto) 0.8 L (1.2-3.8) 10^3/uL [place] # (Auto) 0.6 (0.3-0.8) 10^3/uL Eos # (Auto) 0.2 (0.0-0.7) 10^3/uL Baso # (Auto) 0.0 (0.0-0.1) 10^3/uL Abs Immat Gran (auto) 0.02 (0.00-0.03) 10^3/uL Imm/Tot Granulo (auto) 0.3 (0.0-0.5) % Sodium 140 (136-145) mmol/L Potassium 3.2 L (3.5-5.1) mmol/L Chloride 100 (98-107) mmol/L Carbon Dioxide 31.3 (21.0-32.0) mmol/L Anion Gap 11.9 BUN 28.0 H (7.0-18.0) mg/dL Creatinine 1.20 H (0.55-1.02) mg/dL Est GFR ( Amer) 52 L (>=60 mL/min/1.73m^2) Est GFR (Non-Af Amer) 43 L (>=60 mL/min/1.73m^2) BUN/Creatinine Ratio 23.3 Glucose 161 H (74-106) mg/dL Calcium 9.8 (8.5-10.1) mg/dL Urine Color Lt. yellow (YELLOW) Urine Clarity Sl cloudy (CLEAR) Urine pH 6.5 (5.0-9.0) Ur Specific [place] <=1.005 A (1.005-1.025) Urine Protein Negative (NEG/TRACE) mg/dL Urine Glucose (UA) Negative (NEGATIVE) mg/dL Urine Ketones Negative (NEGATIVE) mg/dL Urine Occult Blood Negative (NEGATIVE) Urine Nitrite Negative (NEGATIVE) Urine Bilirubin Negative (NEGATIVE) Urine Urobilinogen 1.0 (0.2-1.0) EU/dL Ur Leukocyte Esterase Moderate A (NEGATIVE) Urine RBC None seen (0-2) #/HPF Urine WBC 2-5 A (NONE SEEN) #/HPF Ur Squamous Epith Cells Many A (NONE/RARE) #/LPF Urine Crystals None seen (None Seen) #/HPF Urine Bacteria Moderate A (NONE SEEN) #/HPF Urine Casts None seen (NONE SEEN) #/LPF Urine Mucus Trace A (NONE SEEN) Ur Culture Indicated? Yes-[facility] [place] Influenza Type A Ag Negative Influenza Type B Ag Negative SARS-CoV-2 Ag (CV2AG) Negative (NEGATIVE) Imaging Data Chest x-ray: My impression: No acute findings ECG Data Attestation: I personally reviewed and interpreted this ECG as follows: (EKG on my interpretation shows sinus tachycardia with a rate of 117.) Discharge Plan Discharge Chief Complaint: Fever Clinical Impression: Viral illness Patient Disposition: Home, Self-Care Time of Disposition Decision: 23:01 Condition: Good Mode of Transportation: Private Vehicle Prescriptions / Home Meds: No Action meloxicam 15 mg tablet 15 mg PO DAILY chlorthalidone 25 mg tablet 25 mg PO DAILY prednisolone acetate 1 % drops,suspension 1 drp OPHTHALMIC (EYE) DAILY Patient Comments: BOTH EYES dicyclomine 20 mg tablet 20 mg PO TID sennosides-docusate sodium [Senna Plus] 8.6-50 mg Tablet 1 tab PO QD PRN (Reason: Constipation) 30 Days Qty: 30 0RF magnesium oxide 400 mg (241.3 mg magnesium) Tablet 400 mg PO QD 30 Days Qty: 30 0RF losartan 100 mg tablet 50 mg PO DAILY Qty: 0 0RF atorvastatin 40 mg Tablet 40 mg PO QHS duloxetine 60 mg capsule,delayed release(DR/EC) 60 mg PO DAILY levothyroxine 88 mcg tablet 88 mcg PO QAM omeprazole 40 mg capsule,delayed release(DR/EC) 40 mg PO BID Prolia 60 mg/mL syringe 60 mg subcut .twice a year Print Language: [place] Citizen Instructions: Viral Syndrome (ED) Referrals: Melvin Dick [Primary Care Provider] - 1 week
[2024-12-23 22:07] LABS: Hematocrit 37.1 % (36.0-48.0); Hemoglobin 12.4 g/dL (12.0-16.0); Immature Granulocytes Abs Auto 0.02 10^3/uL (0.00-0.03); Immature Granulocytes Pct Auto 0.3 % (0.0-0.5); Lymphocytes Absolute Auto 0.8 10^3/uL (1.2-3.8); Mean Corpuscular HGB Conc 33.4 g/dL (29.9-35.2); Mean Corpuscular Hemoglobin 32.8 pg (26.7-34.0); Mean Corpuscular Volume 98.1 fL (81.0-99.0); Platelet Count 250 10^3/uL (150-450); Red Blood Count 3.78 10^6/uL (4.20-5.40); White Blood Count 7.9 10^3/uL (4.0-11.0)
[2024-12-23] MEDS: 0.9 % SODIUM CHLORIDE 500 ML IV (22:07)
--- OUTSIDE RECORDS SUMMARY | 2024-12-23 22:07 | XMS_ITS | Clinical Summary ---
Author Organization [facility] Address [address] [place] [address] Phone Care Team Providers Care Electronic Tech Name Role Phone RadRoney lizama Primary Care Provider [phone] Allergies No known active allergies Medications MedicationSigDispense QuantityRefillsLast FilledStart DateEnd DateStatus meloxicam (Mobic) 15 mg tablet 1 tablet (15 mg) once daily.01/05/2022ctive acetaminophen (Tylenol) 500 mg tablet Take 2 tablets (1,000 mg) by mouth every 6 hours if needed.03/17/2016Active albuterol 90 mcg/actuation inhaler if needed.05/30/2022ctive anastrozole (Arimidex) 1 mg tablet 1 tablet (1 mg total) once daily.11/02/2018Active cholecalciferol (Vitamin D-3) 50 MCG (2000 UT) tablet Take 2 tablets (4,000 Units) by mouth once daily.02/26/2015Active cyanocobalamin (Vitamin B-12) 1,000 mcg tablet Take 3 tablets (3,000 mcg) by mouth once daily.Active DULoxetine (Cymbalta) [address] capsule 1 capsule (60 mg) once daily.05/30/2022ctive levothyroxine (Synthroid, Levoxyl) 88 mcg tablet 1 tablet (88 mcg) once daily in the morning. Take before meals.11/29/2020ctive omeprazole (PriLOSEC) [address] capsule 1 capsule (40 mg) once daily.11/12/2020ctive verapamil ER (Veralan PM) 240 mg 24 hr capsule Take 1 capsule (240 mg) by mouth once daily.11/23/2022ctive Active Problems ProblemNoted DateDiagnosed DateOverweight (BMI 25.0-29.9)12/08/2022Vertigo 12/08/2022SVT (supraventricular tachycardia)12/08/2022Essential hypertension 12/08/2022 Family History Medical HistoryRelationNameCommentsDiabetes type IBrotherHeart diseaseBrother HypertensionFatherCABGMotherDiabetes type IIMotherHyperlipidemiaMother HypertensionMotherRelationNameStatusCommentsBrotherFatherMother Social History Tobacco UseTypesPacks/DayYears UsedDateSmoking Tobacco: FormerCigarettesQuit: 1973Smokeless Tobacco: Never Tobacco Cessation:Counseling Given: Not Answered Alcohol UseStandard Drinks/WeekCommentsYes0 (1 standard drink = 0.6 oz pure alcohol)special occasionsCommentsUnknownSex and Gender InformationValue Date RecordedSex Assigned at BirthNot on fileLegal RcrPlnybj00/25/2022 9:55 PM ESTGender IdentityNot on fileSexual OrientationNot on file Last Filed Vital Signs Vital SignReadingTime TakenCommentsBlood Bfdgxteq904/7812/08/2022 11:13 AM EDT Kyscf962012/08/2022 10:43 AM EDTTemperature--Respiratory Rate--Oxygen Saturation-- Inhaled Oxygen Concentration--Ujkjsd77.3 kg (166 lb)12/08/2022 10:43 AM EDT Ewwyee805 cm (5' 3 )12/08/2022 10:43 AM EDTBody Mass Index29.411 10:43 AM EDT Plan of Treatment Health MaintenanceDue DateLast DoneCommentsLipid Panel1942Medicare Annual Wellness Visit (AWV)1940TSH Level1940iabetes Ircgerfos07/30/1961 DTaP/Tdap/Td Vaccines (1 - Tdap)1964Bone Density Scan2007RSV High Risk: (Elderly (60+) or Population) (1 - 1-dose 75+ series)2017 Influenza Vaccine (#1)511/12/2021, 08/18/2021, 09/25/2019, Additional history existsCOVID-19 Vaccine (2024- season)/2022, 12/25/2020, 03/29/2020, Additional history existsPneumococcal VaccineCompleted 02/23/2019, 12/31/2014, 07/11/2009Zoster MgafudjmIwqcpklft95/14/2020, 04/10/2019 HIB VaccinesAged OutNo longer eligible based on patient's age to complete this topicHPV VaccinesAged OutNo longer eligible based on patient's age to complete this topicHepatitis A VaccinesAged OutNo longer eligible based on patient's age to complete this topicHepatitis B VaccinesAged OutNo longer eligible based on patient's age to complete this topicIPV VaccinesAged OutNo longer eligible based on patient's age to complete this topicMeningococcal VaccineAged OutNo longer eligible based on patient's age to complete this topicRotavirus VaccinesAged Out No longer eligible based on patient's age to complete [place] [address] * Guarantor: Augusta Lorenz TypeRelation to PatientDate of BirthPhone Billing AddressPersonal/XaohfdZvyr55/30/1941 ([place]) [address] [place] [address] [place] [address] Care Teams Team MemberRelationshipSpecialtyStart DateEnd Date Roney Leroy DO [address] [facility] [address] [id number] [facility] Rsgtgqrg68/31/23
--- OUTSIDE RECORDS SUMMARY | 2024-12-23 22:07 | XMS_ITS ---
Author Organization [facility] n Care Team Providers Care Kinder Teacher Name Role Phone Joe, Itri Unavailable Unavailable Allergies and adverse reactions No Known Allergies Care Team Name Role Address Phone Organization Dates Itri Joe [facility] [address], [place], [address], [place] (Office): : : [facility] 07/13/2009 - 08/01/2009 Immunizations Immunization Status Vaccine Details Vaccine Code CodeSystem Tony e Notes TB 2 Step Mantoux Skin Test completed tuberculin skin test; unspecified formulation Given Left Forearm Step 2 of Multi-step with next step required 98 CVX created date: 07/30/2009 consent date: 07/30/2009 administered date: 07/20/2009 TB 2 Step Mantoux Skin Testcompletedtuberculin skin test; unspecified formulation Given Right Deltoid Step 1 of Multi-step with next step cdwsseoh18VFTccoulos date: 07/30/2009 consent date: 07/30/2009 administered date: 07/13/2009 Insurance Providers Reason for Referral No Reasons for Referral Entered Social History Social History Observation Description Start Date End Date Code Code System Current Smoking Status Tobacco smoking consumption unknown 122215818 SNOMED CT Sex Assigned At Female 1940 34743-4 LOINC Gender Identity Sexual Orientation Vital Signs Code Code System Vitals Name Values and Units Timing Information 23865-5 LOINC Weight Zwibp=606.0 Units=Lbs 06/2009
--- OUTSIDE RECORDS SUMMARY | 2024-12-23 22:07 | XMS_ITS | Clinical Summary ---
Author Organization [facility] Address [id number] [address] [place] [address] Care Team Providers Care Coal Hiker Name Role Phone Unavailable Primary Care Provider Unavailabl e Encounters DateTypeDepartmentCare XjkgEtvoieinyss81/02/2025 11:10 AM EDTAncillary Procedure [facility] [address] [place] [address] [phone] Pain10/10/2024Orders Only [facility] [address] [place] [address] [phone] Transcribe, Orders Support User Pain (Primary Dx)10/09/2024Orders Only [facility] [address] [place] [address] [phone] Transcribe, Orders Support User Pain (Primary Dx)10/07/2024 3:46 PM EDT - 10/12/2024 2:04 PM EDTEmergency [facility] [address] [place] [phone] Discharge Disposition: Telemedicine Gbrtenctb36/30/2025 1:55 PM EDTAncillary Procedure [facility] [place] [phone] Pain10/07/2024 1:50 PM EDTAncillary Procedure [facility] [address] [place] [phone] Pain10/07/2024 12:10 PM EDTAncillary Procedure [facility] [address] [place] [phone] Painfrom Last 3 Months Social History Tobacco UseTypesPacks/DayYears UsedDateSmoking Tobacco: Never AssessedChildcare AnswerDate VlitozzrKxinbtnjdZbqmikb92/12/2019EmploymentAnswerDate Recorded MelfrdblniPkyochf09/12/2019CommentsUnknownSex and Gender Information ValueDate RecordedSex Assigned at BirthNot on fileLegal MgbHpmmvu30/06/2015 11:31 AM EDTGender IdentityNot on fileSexual OrientationNot on file Plan of Treatment Health MaintenanceDue DateLast DoneCommentsDepression Vfedjqvaz47/30/1955Tobacco Utmszzpoy85/30/1955DTaP,Tdap and Td Vaccines (1 - Tdap)1961Fall Risk Pbjqmguuf40/30/2008RSV ( or age 60+ yrs) (1 - 1-dose 75+ series) 2017COVID-19 Vaccine (2024- season)/, 12/25/2020, 03/29/2020, Additional history existsInfluenza Dajudzr51/, 12/19/2021, 08/18/2021, Additional history existsZoster (Shingles) Vaccine Ancwshuat76/14/2020, 04/10/2019 Medical Devices Not on file Procedures Procedure NamePriorityDate/TimeAssociated DiagnosisCommentsMR BRAIN WO CONT Tgdttox0510/10/2024 11:[address] CTA YVDAJijcneq32/30/2025 1:[address] CTA JTZTFDZSprvyvt05/30/2025 1:[address] BRAIN WO CONT STROKE ALERTSTAT Gghdnqp4410/07/2024 12:10 PM EDT Pain from Last 3 Months Results * MR brain without contrast (10/10/2024 11:10 AM EDT)Specimen (Source)Anatomical Location / LateralityCollection Method / VolumeCollection TimeReceived Time Narrative Authorizing ProviderResult TypeResult StatusScanning Provider ExternalIMG MRI ORDERABLESFinal Result * CT angiogram head (10/07/2024 1:55 PM EDT)Specimen (Source)Anatomical Location / LateralityCollection Method / VolumeCollection TimeReceived Time Narrative Authorizing ProviderResult TypeResult StatusScanning Provider ExternalIMG CT ORDERABLESFinal Result * CT angiogram carotid (10/07/2024 1:50 PM EDT)Specimen (Source)Anatomical Location / LateralityCollection Method / VolumeCollection TimeReceived Time Narrative Authorizing ProviderResult TypeResult StatusScanning Provider ExternalIMG CT ORDERABLESFinal Result * CT brain without contrast stroke alert (10/07/2024 12:10 PM EDT)Specimen (Source)Anatomical Location / LateralityCollection Method / VolumeCollection TimeReceived Time Narrative Authorizing ProviderResult TypeResult StatusScanning Provider ExternalIMG CT ORDERABLESFinal Result from Last [address] [place] [id number]
[2024-12-23 22:14] LABS: Anion Gap 11.9; Blood Urea Nitrogen 28.0 mg/dL (7.0-18.0); Calcium 9.8 mg/dL (8.5-10.1); Carbon Dioxide 31.3 mmol/L (21.0-32.0); Chloride 100 mmol/L (98-107); Estimated GFR (African America 52 (>=60 mL/min/1.73m^2); Estimated GFR (Non-African Ame 43 (>=60 mL/min/1.73m^2); Glucose 161 mg/dL (74-106); Potassium 3.2 mmol/L (3.5-5.1); Sodium 140 mmol/L (136-145)
[2024-12-23 22:19] LABS: SARS-CoV-2 Ag NEGATIVE (NEGATIVE)
[2024-12-23 22:54] LABS: Glucose Urine UA NEGATIVE (NEGATIVE)
[2024-12-23 22:56] LABS: Cast Seen? NONE SEEN #/LPF (NONE SEEN); Crystals Seen? None Seen #/HPF (None Seen); Urine Culture Indicated YES-FRMC
== END 2024-12-23 23:22 | disposition home or self-care (01) ==
PROVIDERS: Emergency Provider Emergency Medicine; PCP Family Medicine
DX: B34.9 Viral infection, unspecified (principal); Z87.891 Personal history of nicotine dependence
CPT/HCPCS: 36415; 71045; 80048; 81001; 85025; 87086; 87804; 87811; 93005; 96360; 99285